=== PATIENT | female | born 1985 | race Hispanic/Latino ===

== ENCOUNTER 2018-01-24 09:03 | Emergency (ER) | payer OTHER, SELFPAY ==
[2018-01-24 09:41] LABS: Absolute Monocytes 0.4 K/uL (0.1-1.3); Absolute Neutrophil 3.7 K/uL (1.8-8.0); Basophils % 0.8 % (0-1.3); Eosinophils % 1.6 % (0-4.4); Hematocrit 43.6 % (36.0-45.0); Lymphocytes % 32.4 % (15.3-44.8); MCH 35.1 pg (27.0-35.0); MCV 100.4 fL (80-100); RBC Red Blood Cell Count 4.34 M/uL (3.86-4.86)
--- NOTE | 2018-01-24 09:45 | RAD REPORT ---
EXAM DESCRIPTION: RAD - Chest Single View - 01/24/2018 9:40 am CLINICAL HISTORY: left arm numbness;Chest pain Chest pain. COMPARISON: CHEST PA AND LAT 2 VIEW dated 11/19/1995 FINDINGS: Portable technique limits examination quality. The lungs are grossly clear. The heart is normal in size. No displaced fractures. IMPRESSION: No acute intrathoracic process suspected.
--- NOTE | 2018-01-24 09:50 | RAD REPORT ---
EXAM DESCRIPTION: CT - Head Brain Wo Cont - 01/24/2018 9:44 am CLINICAL HISTORY: left arm numbness Drowsiness COMPARISON: No comparisons TECHNIQUE: All CT scans are performed using dose optimization technique as appropriate and may inclu de automated exposure control or mA/KV adjustment according to patient size. FINDINGS: No intracranial hemorrhage, hydrocephalus or extra-axial fluid collection.No areas of brai n edema or evidence of midline shift. The paranasal sinuses and mastoids are clear. The calvarium is intact. IMPRESSION: No acute intracranial abnormality.
[2018-01-24 09:52] LABS: Protime INR 1.02
[2018-01-24 10:10] LABS: ALT/SGPT 84 U/L (12-78); AST/SGOT 72 U/L (15-37); Albumin 4.1 g/dL (3.4-5.0); Alkaline Phosphatase 122 U/L (45-117); BUN Blood Urea Nitrogen 11 mg/dL (7-18); Bicarbonate 24 mmol/L (21-32); Bilirubin Direct 0.2 mg/dL (0-0.2); Bilirubin Total 0.5 mg/dL (0.2-1.0); Glucose Level 84 mg/dL (74-106); Magnesium 2.2 mg/dL (1.8-2.4); NT PRO-BNP 27 pg/mL (<125); Potassium 3.6 mmol/L (3.5-5.1); Protein, Total 8.3 g/dL (6.4-8.2); Sodium Level 139 mmol/L (136-145)
[2018-01-24 11:07] LABS: Urine Blood 3+ (NEG); Urine Glucose NEGATIVE (NEG); Urine Protein 1+ (NEG)
[2018-01-24 11:24] LABS: Barbiturates NEGATIVE (NEGATIVE); Benzodiazepines NEGATIVE (NEGATIVE); Cocaine NEGATIVE (NEGATIVE); METHAMPHETAM POSITIVE (NEGATIVE); Methadone NEGATIVE (NEGATIVE); Opiates NEGATIVE (NEGATIVE); Phencyclidine NEGATIVE (NEGATIVE); THC Cannibis POSITIVE (NEGATIVE)
--- NOTE | 2018-01-24 11:48 | EDPHYS ---
Physician Documentation [facility] Name: Sylvia Cruz Age: 32 yrs Sex: Female : 1985 Arrival Date: 01/24/2018 Time: 09:07 Bed 6 Private MD: None, None ED Physician Jarad Fermin HPI: 01/24 09:36 This 32 yrs old Female presents to ER via Ambulatory with complaints of Chest kdr Pain, Numbness Of Arm. 09:36 The patient or guardian reports chest pain that is located primarily in the anterior kdr chest wall, left. The pain radiates to the left arm. Associated signs and symptoms: Pertinent positives: diaphoresis, lightheadedness. The chest pain is described as aching, dull, a heaviness, a pressure, squeezing. Duration: The patient or guardian reports multiple episodes, that are intermittent, that wax and wane, with no pattern. Modifying factors: The symptoms are alleviated by nothing. the symptoms are aggravated by activity, emotionally stressful situations, movement. Severity of pain: At its worst the pain was moderate in the emergency department the pain is unchanged. The patient has experienced similar episodes in the past, several times, She has had the CP previously, last was 4 - 6 months ago. The left hand was cramping but not numb as it is today. The numbness since onset has been her entire left arm. 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 - Social history:: Smoking status: Patient uses tobacco products, denies chronic smoking, but will smoke occasionally. - Ebola Screening: : Patient denies exposure to infectious person Patient denies travel to an Ebola-affected area in the 21 days before illness onset. ROS: 09:36 Constitutional: Negative for fever, chills, and weight loss, Eyes: Negative for injury, kdr pain, redness, and discharge, ENT: Negative for injury, pain, and discharge, Neck: Negative for injury, pain, and swelling, Respiratory: Negative for shortness of breath, cough, wheezing, and pleuritic chest pain, Abdomen/GI: Negative for abdominal pain, nausea, vomiting, diarrhea, and constipation, Back: Negative for injury and pain, : Negative for injury, bleeding, discharge, and swelling, MS/Extremity: Negative for injury and deformity, Skin: Negative for injury, rash, and discoloration, Psych: Negative for depression, anxiety, suicide ideation, homicidal ideation, and hallucinations, Allergy/Immunology: Negative for hives, rash, and allergies, Endocrine: Negative for neck swelling, polydipsia, polyuria, polyphagia, and marked weight changes, Hematologic/Lymphatic: Negative for swollen nodes, abnormal bleeding, and unusual bruising. 09:36 Cardiovascular: Positive for chest pain, Negative for edema, orthopnea, palpitations, paroxysmal nocturnal dyspnea, acute changes. 09:36 Neuro: Positive for numbness, weakness, Negative for altered mental status, dizziness, headache, hearing loss, loss of consciousness, seizure activity, speech changes, syncope, near syncope, tingling, tinnitus, tremor, visual changes. Exam: 09:36 Constitutional: This is a well developed, well nourished patient who is awake, alert, kdr and in no acute distress. Head/Face: Normocephalic, atraumatic. Eyes: Pupils equal round and reactive to light, extra-ocular motions intact. Lids and lashes normal. Conjunctiva and sclera are non-icteric and not injected. Cornea within normal limits. Periorbital areas with no swelling, redness, or edema. Neck: Trachea midline, no thyromegaly or masses palpated, and no cervical lymphadenopathy. Supple, full range of motion without nuchal rigidity, or vertebral point tenderness. No Meningismus. Chest/axilla: Normal chest wall appearance and motion. Nontender with no deformity. No lesions are appreciated. Cardiovascular: Regular rate and rhythm with a normal S1 and S2. No gallops, murmurs, or rubs. Normal PMI, no JVD. No pulse deficits. Respiratory: Lungs have equal breath sounds bilaterally, clear to auscultation and percussion. No rales, rhonchi or wheezes noted. No increased work of breathing, no retractions or nasal flaring. Abdomen/GI: Soft, non-tender, with normal bowel sounds. No distension or tympany. No guarding or rebound. No evidence of tenderness throughout. Back: No spinal tenderness. No costovertebral tenderness. Full range of motion. Skin: Warm, dry with normal turgor. Normal color with no rashes, no lesions, and no evidence of cellulitis. MS/ Extremity: Pulses equal, no cyanosis. Neurovascular intact. Full, normal range of motion. Neuro: Awake and alert, GCS 15, oriented to person, place, time, and situation. Cranial nerves II-XII grossly intact. Motor strength 5/5 in all extremities. Economic Development Director strenght is less in the left hand but she is right hand dominant. Sensory grossly intact but subjectively diminished on the left hand. Sharp/dull between both hands was grossly Cerebellar exam normal. Normal gait. Psych: Awake, alert, with orientation to person, place and time. Behavior, mood, and affect are within normal limits. Vital Signs: 09:15 Pulse 89; Resp 16; Pulse Ox 98% on R/A; Weight 58.97 kg; Height 5 ft. 1 in. (154.94 ss cm); Pain 6/10; 09:38 BP 119 / 93; Temp 98.4(O); ae1 09:50 BP 139 / 89; Pulse 72; Resp 20; Pulse Ox 98% on R/A; ae1 10:30 BP 119 / 91; Pulse 72; Resp 18; Pulse Ox 98% on R/A; ae1 09:15 Body Mass Index 24.56 (58.97 kg, 154.94 cm) ss NIH Stroke Scale Scores: 09:33 NIHSS Score: 0 kdr MDM: 11:48 Patient medically screened. kdr 11:50 Data reviewed: vital signs, nurses notes. Special discussion: Based on the patient's kdr history, exam, and Dx evaluation, there is no indication for emergent intervention or inpatient Tx. It is understood by the patient/guardian that if the Sx's persist or worsen they need to return immediately for re-evaluation. I discussed with the patient/guardian in detail that at this point there is no indication for admission to the hospital. It is understood, however, that if the symptoms persist or worsen the patient needs to return immediately for re-evaluation. ED course: The patient improved with the interventions given and was happy with the care provided and the plan for discharge and follow-up. 01/24 09:30 Order name: Basic Metabolic Panel; Complete Time: 10:53 kdr 01/24 09:30 Order name: CBC with Diff; Complete Time: 10:53 kdr 01/24 09:30 Order name: LFT's; Complete Time: 10:53 kdr 01/24 09:30 Order name: Magnesium; Complete Time: 10:53 [facility] 01/24 09:30 Order name: NT PRO-BNP; Complete Time: 10:53 [facility] 01/24 09:30 Order name: PT-INR; Complete Time: 10:53 [facility] 01/24 09:30 Order name: Ptt, Activated; Complete Time: 10:53 [facility] 01/24 09:30 Order name: Troponin (emerg Dept Use Only); Complete Time: 10:53 kdr 01/24 09:30 Order name: XRAY Chest (1 view); Complete Time: 10:53 [facility] 01/24 09:30 Order name: EKG; Complete Time: 09:31 kdr 01/24 09:30 Order name: CT Head Brain wo Cont; Complete Time: 10:53 [facility] 01/24 09:31 Order name: UDS; Complete Time: 11:42 [facility] 01/24 10:47 Order name: Urine Dipstick--Ancillary (enter results); Complete Time: 11:42 eb 01/24 10:47 Order name: Urine --Ancillary (enter results); Complete Time: 11:42 eb 01/24 09:30 Order name: Cardiac monitoring; Complete Time: 09:31 kdr 01/24 09:30 Order name: EKG - Nurse/Tech; Complete Time: 09:38 kdr 01/24 09:30 Order name: IV Saline Lock; Complete Time: 09:31 kdr 01/24 09:30 Order name: Labs collected and sent; Complete Time: 09:31 kdr 01/24 09:30 Order name: O2 Per Protocol; Complete Time: 09:31 kdr 01/24 09:30 Order name: O2 Sat Monitoring; Complete Time: 09:31 kdr 01/24 09:30 Order name: Urine Dipstick-Ancillary (obtain specimen); Complete Time: 10:36 kdr 01/24 09:31 Order name: Urine Test (obtain specimen); Complete Time: 10:36 kdr Administered Medications: No medications were administered Disposition: 01/24/18 11:48 Discharged to Home. Impression: Chest pain on breathing, Idiopathic peripheral autonomic neuropathy. - Condition is Stable. - Discharge Instructions: Peripheral Neuropathy, Nonspecific Chest Pain, [id number]. - Medication Reconciliation Form, Thank You Letter form. - Follow up: Private Physician; When: 2 - 3 days; Reason: If symptoms return, Further diagnostic work-up, Recheck today's complaints, Continuance of care, Re-evaluation by your physician. - Problem is new. - Symptoms have improved. NIH Stroke Scale - NIH Stroke Score Date: 01/24/2018 Time: 09:33 Total Score = 0 1a. Level of Consciousness (LOC) - 0(Alert) 1b. Level of Consciousness (LOC) (Year \\T\\ Age) - 0(Both) 1c. LOC Commands (Open \\T\\ Closes Eyes/Economic Development Director) - 0(Both) 2. Best Gaze (Lateral Gaze Paresis) - 0(Normal) 3. Visual Field Loss - 0(No visual loss) 4. Facial Palsy - 0(Normal) 5a. Left Arm: Motor (10-second hold) - 0(No drift) 5b. Right Arm: Motor (10-second hold) - 0(No drift) 6a. Left Leg: Motor (5-second hold - always test supine) - 0(No drift) 6b. Right Leg: Motor (5-second hold - always test supine) - 0(No drift) 7. Limb Ataxia (finger/nose \\T\\ heel/apple - test with eyes open) - 0(Absent) 8. Sensory Loss (pinprick arms/legs/face) - 0(Normal) 9. Best Language: Aphasia (description/naming/reading) - 0(No aphasia) 10. Dysarthria (speech clarity - read or repeat words) - 0(Normal) 11. Extinction and Inattention (visual/tactile/auditory/spatial/personal) - 0(No abnormality) Initials: [facility] Signatures: Dispatcher [employer] EDMS Jarad eFrmin MD MD [facility] Gunjan Mata RN RN Hernán Mcclelland RN RN ae1 Corrections: (The following items were deleted from the chart) 11:59 11:48 01/24/2018 11:48 Discharged to Home. Impression: Chest pain on breathing; ae1 Idiopathic peripheral autonomic neuropathy. Condition is Stable. Forms are Medication Reconciliation Form, Thank You Letter, Antibiotic Education, Prescription Opioid Use. Follow up: Private Physician; When: 2 - 3 days; Reason: If symptoms return, Further diagnostic work-up, Recheck today's complaints, Continuance of care, Re-evaluation by your physician. Problem is new. Symptoms have improved. kdr
--- NOTE | 2018-01-24 11:48 | ER ---
Nurse's Notes [facility] Name: Sylvia Cruz Age: 32 yrs Sex: Female : 1985 Arrival Date: 01/24/2018 Time: 09:07 Bed 6 Private MD: None, None Diagnosis: Chest pain on breathing;Idiopathic peripheral autonomic neuropathy Presentation: 01/24 09:13 Presenting complaint: Patient states: decreased sensation in L arm and intermittent ss chest pain when patient got off work around 11pm last night. Transition of care: patient was not received from another setting of care. Onset of symptoms was January 23, 2018 at 23:00. Risk Assessment: Do you want to hurt yourself or someone else? Patient reports no desire to harm self or others. Initial Sepsis Screen: Does the patient meet any 2 criteria? No. Patient's initial sepsis screen is negative. Does the patient have a suspected source of infection? No. Patient's initial sepsis screen is negative. Care prior to arrival: None. 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 - Social history:: Smoking status: Patient uses tobacco products, denies chronic smoking, but will smoke occasionally. - Ebola Screening: : Patient denies exposure to infectious person Patient denies travel to an Ebola-affected area in the 21 days before illness onset. Screenin:17 Abuse screen: Denies threats or abuse. Denies injuries from another. Nutritional ss screening: No deficits noted. Tuberculosis screening: Never had TB. 09:49 Fall Risk None identified. ae1 Assessment: 09:07 General: Appears in no apparent distress. uncomfortable, slender, Behavior is ae1 cooperative, anxious. Pain: Complains of pain in xyphoid area and mid-sternal area Pain radiates to left arm Pain began gradually, 1 day ago. Neuro: Level of Consciousness is awake, alert, obeys commands, Oriented to person, place, time, situation. Cardiovascular: Heart tones S1 S2 present Patient's skin is warm and dry. Rhythm is regular. Respiratory: Airway is patent Trachea midline Respiratory effort is even, unlabored, Respiratory pattern is regular, symmetrical. GI: No signs and/or symptoms were reported involving the gastrointestinal system. : No signs and/or symptoms were reported regarding the genitourinary system. EENT: No signs and/or symptoms were reported regarding the EENT system. Derm: Skin is normal. Musculoskeletal: No signs and/or symptoms reported regarding the musculoskeletal system. 09:30 Reassessment: Radiology at bedside obtaining chest x-ray. ae1 09:47 Reassessment: Patient returned from CT, encouraged to provide urine sample, patient ae1 states she is unable to urinate at this time. 10:31 Reassessment: Patient states her is still numb. Patient up to restroom to urinate. ae1 Vital Signs: 09:15 Pulse 89; Resp 16; Pulse Ox 98% on R/A; Weight 58.97 kg; Height 5 ft. 1 in. (154.94 ss cm); Pain 6/10; 09:38 BP 119 / 93; Temp 98.4(O); ae1 09:50 BP 139 / 89; Pulse 72; Resp 20; Pulse Ox 98% on R/A; ae1 10:30 BP 119 / 91; Pulse 72; Resp 18; Pulse Ox 98% on R/A; ae1 09:15 Body Mass Index 24.56 (58.97 kg, 154.94 cm) ss NIH Stroke Scale Scores: 09:33 NIHSS Score: 0 kdr ED Course: 09:07 Patient arrived in ED. mr 09:07 None, None is Private Physician. mr 09:15 Triage completed. ss 09:15 Arm band placed on right wrist. ss 09:16 monitoring specialist on. Pulse ox on. NIBP on. Notified ED physician of other of patient's ss arrival and s/s. Dr. Fermin reports no need to call code stroke at this time. 09:16 Patient has correct armband on for positive identification. Placed in gown. Bed in low ss position. Call light in reach. Side rails up X 1. Adult w/ patient. 09:16 Patient maintains SpO2 saturation greater than 95% on room air. ss 09:20 Inserted saline lock: 20 gauge in right antecubital area, using aseptic technique. ae1 Blood collected. 09:22 Jarad Fermin MD is Attending Physician. kdr 09:25 Hernán Mcclelland, SARAHI is Primary Nurse. ae1 09:37 X-ray completed. Portable x-ray completed in exam room. Patient tolerated procedure jb2 well. 09:38 XRAY Chest (1 view) In Process Unspecified. EDMS 09:44 CT Head Brain wo Cont In Process Unspecified. EDMS 10:45 Urine collected: clean catch specimen, cloudy, donald colored. jb1 11:58 No provider procedures requiring assistance completed. IV discontinued, intact, ae1 bleeding controlled, No redness/swelling at site. Pressure dressing applied. Administered Medications: No medications were administered Outcome: 11:48 Discharge ordered by . kdr 11:58 Discharged to home ambulatory. ae1 11:58 Condition: stable 11:58 Discharge instructions given to patient, Instructed on discharge instructions, follow up and referral plans. Demonstrated understanding of instructions. 11:59 Patient left the ED. ae1 NIH Stroke Scale - NIH Stroke Score Date: 01/24/2018 Time: 09:33 Total Score = 0 1a. Level of Consciousness (LOC) - 0(Alert) 1b. Level of Consciousness (LOC) (Year \\T\\ Age) - 0(Both) 1c. LOC Commands (Open \\T\\ Closes Eyes/Metal Fabricator Helper) - 0(Both) 2. Best Gaze (Lateral Gaze Paresis) - 0(Normal) 3. Visual Field Loss - 0(No visual loss) 4. Facial Palsy - 0(Normal) 5a. Left Arm: Motor (10-second hold) - 0(No drift) 5b. Right Arm: Motor (10-second hold) - 0(No drift) 6a. Left Leg: Motor (5-second hold - always test supine) - 0(No drift) 6b. Right Leg: Motor (5-second hold - always test supine) - 0(No drift) 7. Limb Ataxia (finger/nose \\T\\ heel/apple - test with eyes open) - 0(Absent) 8. Sensory Loss (pinprick arms/legs/face) - 0(Normal) 9. Best Language: Aphasia (description/naming/reading) - 0(No aphasia) 10. Dysarthria (speech clarity - read or repeat words) - 0(Normal) 11. Extinction and Inattention (visual/tactile/auditory/spatial/personal) - 0(No abnormality) Initials: kdr Signatures: Dispatcher [employer] Foster Carlson jb1 Jarad Fermin MD MD kdr Rivera, Maria mr Buechter, Jesse jb2 Gunjan Mata, RN RN ss Hernán Mcclelland RN RN ae1
--- NOTE | 2018-01-24 12:10 | EKG ---
Test Date: 2018-01-24 Test Time: 09:30:27 Software Asset Manager: ELKE MEASUREMENT RESULTS: Intervals: Rate: 78 TX: 114 QRSD: 74 QT: 412 QTc: 469 [place]: P: -5 TX: 114 QRS: 28 T: 27 INTERPRETIVE STATEMENTS: Normal sinus rhythm Normal ECG Compared to ECG 09/27/2007 12:15:57 Sinus arrhythmia no longer present Electronically Signed On 01-24-18 12:10:05 CDT by Rito Thompson
== END 2018-01-24 11:59 | disposition home or self-care (01) ==
LOC: ER 09:03
DX: R07.9 Chest pain, unspecified (principal); G90.09 Other idiopathic peripheral autonomic neuropathy; F17.200 Nicotine dependence, unspecified, uncomplicated
CPT/HCPCS: 36415; 70450; 71045; 80048; 80076; 80307; 81003; 81025; 83735; 83880; 84484; 85025; 85610; 85730; 93005; 99285

== ENCOUNTER 2018-10-23 23:46 | Emergency (ER) | payer SELFPAY ==
--- OUTSIDE RECORDS SUMMARY | 2018-10-23 23:47 | XMS REPORT ---
:1985 [facility] Address [address] [place] [address] Dr. Villanueva [address] [place] [id number] Care Team Providers Name Role Phone Unavailable Unavailable Unavailable Problems This patient has no known problems. Allergies, Adverse Reactions, Alerts This patient has no known allergies or adverse reactions. Medications This patient has no known medications.
[2018-10-24 01:14] LABS: Urine Blood 2+ (NEG); Urine Glucose NEGATIVE (NEG); Urine Protein NEGATIVE (NEG); Urine Specific Gravity <1.005 (1.005-1.030)
[2018-10-24] MEDS ORDERED: LORazepam 2 MG/ML VIAL ONE (01:38)
[2018-10-24] MEDS ORDERED: TETANUS & DIPHTHERIA TOX,ADULT 0.5 ML VIAL ONE (01:39)
[2018-10-24 01:45] LABS: Absolute Lymphocytes (CBC) 2.7 K/uL (0.7-4.9); Absolute Monocytes 0.4 K/uL (0.1-1.3); Absolute Neutrophil 2.3 K/uL (1.8-8.0); Basophils % 1.1 % (0-1.3); Eosinophils % 2.8 % (0-4.4); Hematocrit 44.1 % (36.0-45.0); Lymphocytes % 47.8 % (15.3-44.8); MPV 7.4 fL (7.6-11.3); Monocytes % 7.4 % (3.3-12.3); RBC Red Blood Cell Count 4.36 M/uL (3.86-4.86)
[2018-10-24 02:18] LABS: Protime INR 0.89
[2018-10-24 02:30] LABS: ALT/SGPT 53 U/L (12-78); AST/SGOT 48 U/L (15-37); Albumin 4.1 g/dL (3.4-5.0); Alkaline Phosphatase 110 U/L (45-117); BUN Blood Urea Nitrogen 6 mg/dL (7-18); Bicarbonate 21 mmol/L (21-32); Bilirubin Direct < 0.1 mg/dL (0-0.2); Bilirubin Total 0.2 mg/dL (0.2-1.0); Glucose Level 104 mg/dL (74-106); Potassium 4.1 mmol/L (3.5-5.1); Protein, Total 8.3 g/dL (6.4-8.2); Sodium Level 148 mmol/L (136-145)
[2018-10-24 05:51] LABS: Barbiturates NEGATIVE (NEGATIVE); Benzodiazepines NEGATIVE (NEGATIVE); Cocaine NEGATIVE (NEGATIVE); METHAMPHETAM NEGATIVE (NEGATIVE); Methadone NEGATIVE (NEGATIVE); Opiates NEGATIVE (NEGATIVE); Phencyclidine NEGATIVE (NEGATIVE); THC Cannibis POSITIVE (NEGATIVE)
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
--- NOTE | 2018-10-24 08:37 | EKG ---
Test Date: 2018-10-23 Test Time: 23:54:12 Disability Advocate: TATYANA MEASUREMENT RESULTS: Intervals: Rate: 107 TX: 132 QRSD: 70 QT: 328 QTc: 437 Sarles: P: 52 TX: 132 QRS: 11 T: 27 INTERPRETIVE STATEMENTS: Sinus tachycardia Otherwise normal ECG Compared to ECG 01/24/2018 09:30:27 Sinus rhythm no longer present Electronically Signed On 10-24-18 08:36:35 CDT by Rito Thompson
== END 2018-10-24 15:54 | disposition home or self-care (01) ==
LOC: ER 23:46
DX: R41.82 Altered mental status, unspecified (principal); F10.129 Alcohol abuse with intoxication, unspecified; S61.512A Laceration without foreign body of left wrist, initial encounter; X78.1XXA Intentional self-harm by knife, initial encounter; R45.851 Suicidal ideations; F31.9 Bipolar disorder, unspecified; I10 Essential (primary) hypertension; Z72.0 Tobacco use; Z23 Encounter for immunization
CPT/HCPCS: 36415; 80048; 80076; 80307; 80320; 80329; 81003; 84703; 85025; 85610; 85730; 90471; 90714; 93005; 96372; 99285

== ENCOUNTER 2019-03-30 22:43 | Emergency (ER) | payer SELFPAY ==
[2019-03-30 23:13] LABS: Absolute Lymphocytes (CBC) 3.3 K/uL (0.7-4.9); Basophils % 1.2 % (0-1.3); Hematocrit 42.2 % (36.0-45.0); Lymphocytes % 56.7 % (15.3-44.8); MPV 7.1 fL (7.6-11.3); RBC Red Blood Cell Count 4.15 M/uL (3.86-4.86)
[2019-03-30] MEDS ORDERED: MORPHINE 4 MG/ML SYR ONE (23:19)
[2019-03-30] MEDS ORDERED: ONDANSETRON 4 MG/2 ML VIAL ONE (23:19)
[2019-03-30] MEDS ORDERED: NA CHLORIDE 0.9% 1,000 ML ONE (23:19)
[2019-03-30 23:33] LABS: ALT/SGPT 77 U/L (12-78); AST/SGOT 86 U/L (15-37); Alkaline Phosphatase 116 U/L (45-117); BUN Blood Urea Nitrogen 6 mg/dL (7-18); Bicarbonate 22 mmol/L (21-32); Glucose Level 96 mg/dL (74-106); Potassium 3.7 mmol/L (3.5-5.1); Sodium Level 144 mmol/L (136-145)
[2019-03-30 23:34] LABS: Albumin 4.1 g/dL (3.4-5.0); Bilirubin Direct < 0.1 mg/dL (0-0.2); Bilirubin Total 0.5 mg/dL (0.2-1.0); Lipase 125 U/L (73-393); Protein, Total 7.9 g/dL (6.4-8.2)
[2019-03-30 23:52] LABS: Urine Blood 2+ (NEG); Urine Glucose NEGATIVE (NEG); Urine Protein NEGATIVE (NEG); Urine Specific Gravity <1.005 (1.005-1.030)
[2019-03-31] MEDS ORDERED: MORPHINE 2 MG/ML SYR ONE (01:26)
--- NOTE | 2019-03-31 02:04 | ER ---
Nurse's Notes [facility] Name: Sylvia Cruz Age: 34 yrs Sex: Female : 1985 Arrival Date: 03/30/2019 Time: 22:45 Bed 26 Private MD: Diagnosis: Abdominal and pelvic pain Presentation: 03/30 22:55 Presenting complaint: Patient states: i have severe RLQ pain this morning and hematuria mg2 since yesterday. Transition of care: patient was not received from another setting of care. Onset of symptoms was March 30, 2019. Risk Assessment: Do you want to hurt yourself or someone else? Patient reports no desire to harm self or others. Initial Sepsis Screen: Does the patient meet any 2 criteria? No. Patient's initial sepsis screen is negative. Does the patient have a suspected source of infection? No. Patient's initial sepsis screen is negative. Care prior to arrival: None. 22:55 Method Of Arrival: Wheelchair mg2 22:55 Acuity: BONITA 2 mg2 Triage Assessment: 03/31 02:20 General: Appears uncomfortable. 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 - Social history:: Smoking status: Patient uses tobacco products, smokes one-half pack cigarettes per day, Patient uses alcohol, occasionally. street drugs, IV drugs. - Ebola Screening: : No symptoms or risks identified at this time. Screenin:58 Abuse screen: Denies threats or abuse. Denies injuries from another. Nutritional mg2 screening: No deficits noted. Tuberculosis screening: No symptoms or risk factors identified. 23:30 Fall Risk None identified. tr5 Assessment: 22:58 Reassessment: patient crying of pain in triage. mg2 23:30 General: Behavior is cooperative, crying. Pain: Complains of pain in right lower tr5 quadrant and abdomen diffusely Pain does not radiate. Pain currently is 10 out of 10 on a pain scale. Quality of pain is described as crampy, Pain began 3 hours ago. Is continuous. Neuro: Level of Consciousness is awake, alert, obeys commands, Oriented to person, place, time, Coat Check Attendant are equal bilaterally Moves all extremities. Cardiovascular: Heart tones present Capillary refill < 3 seconds Pulses are all present. Respiratory: Airway is patent Respiratory effort is even, unlabored, Respiratory pattern is regular, symmetrical. GI: Bowel sounds present X 4 quads. Abd is soft. : No signs and/or symptoms were reported regarding the genitourinary system. EENT: No signs and/or symptoms were reported regarding the EENT system. Derm: No signs and/or symptoms reported regarding the dermatologic system. Musculoskeletal: No signs and/or symptoms reported regarding the musculoskeletal system. 03/31 00:30 Reassessment: Patient and/or family updated on plan of care and expected duration. Pain tr5 level reassessed. Patient is alert, oriented x 3, equal unlabored respirations, skin warm/dry/pink. 02:22 Reassessment: Patient appears in no apparent distress at this time. Patient and/or jd3 family updated on plan of care and expected duration. Pain level reassessed. Patient is alert, oriented x 3, equal unlabored respirations, skin warm/dry/pink. pt reported understanding of discharge instructions, even and steady gait upon discharge. Vital Signs: 03/30 22:56 BP 138 / 104; Pulse 102; Resp 20; Temp 98; Pulse Ox 100% on R/A; Weight 51.26 kg; mg2 Height 5 ft. 2 in. (157.48 cm); Pain 10/10; 03/31 00:00 BP 129 / 101; Pulse 86; Resp 17; Pulse Ox 99% ; tr5 02:20 Pulse 88; Resp 16 S; Pulse Ox 100% on R/A; jd3 03/30 22:56 Body Mass Index 20.67 (51.26 kg, 157.48 cm) mg2 ED Course: 03/30 22:45 Patient arrived in ED. cf2 22:56 Triage completed. mg2 22:58 Cachorro Higgins PA is PHCP. [facility] 22:58 Dinh Joshua MD is Attending Physician. m 22:58 Arm band placed on. mg2 23:02 Eric Thompson, SARAHI is Primary Nurse. tr5 23:09 Inserted saline lock: 20 gauge in right antecubital area, using aseptic technique. mg2 Blood collected. 23:[address] tr5 23:30 Bed in low position. Call light in reach. Side rails up X 1. tr5 23:46 Initial lab(s) drawn, by me, sent to lab. Patient maintains SpO2 saturation greater jp3 than 95% on room air. 23:46 Test, Serum Sent. jp3 23:48 Radiology exam delayed due to test not completed at this time. kw1 03/31 01:06 CT Abd/Pelvis - IV Contrast Only In Process Unspecified. EDMS 02:20 No provider procedures requiring assistance completed. IV discontinued, intact, jd3 bleeding controlled, No redness/swelling at site. Pressure dressing applied. Administered Medications: 03/30 23:30 Drug: morphine 4 mg Route: IVP; Site: right antecubital; tr5 03/31 00:01 Follow up: Response: Marked relief of symptoms tr5 03/30 23:30 Drug: Zofran 4 mg Route: IVP; Site: right antecubital; tr5 03/31 00:01 Follow up: Response: Marked relief of symptoms tr5 03/30 23:59 Drug: NS 0.9% 1000 ml Route: IV; Rate: 1 bolus; Site: right antecubital; tr5 03/31 02:22 Follow up: Response: No adverse reaction; IV Status: Completed infusion; IV Intake: jd3 1000ml 01:15 Drug: morphine 2 mg Route: IVP; Site: right antecubital; tr5 01:58 Follow up: Response: Pain is decreased tr5 Intake: 02:22 IV: 1000ml; Total: 1000ml. jd3 Outcome: 02:03 Discharge ordered by . oj 02:20 Discharged to home ambulatory, with family. jd3 02:20 Condition: stable 02:20 Discharge instructions given to patient, family, Instructed on discharge instructions, follow up and referral plans. medication usage, Demonstrated understanding of instructions, follow-up care, medications, Prescriptions given X 1. 02:23 Patient left the ED. jd3 Signatures: Dispatcher [employer] EDMS Cachorro Higgins PA PA jmm Davies, Jonathon RN RN jAlea Walker kw1 Matt Castillo RN RN mg2 Mat Renteria jp3 Eric Thompson RN RN tr5 Bekah Ta cf2 Corrections: (The following items were deleted from the chart) 03/30 22:56 22:55 Acuity: BONITA 3 mg2 mg2
--- NOTE | 2019-03-31 02:04 | EDPHYS ---
Physician Documentation [facility] Name: Sylvia Cruz Age: 34 yrs Sex: Female : 1985 Arrival Date: 03/30/2019 Time: 22:45 Bed 26 Private MD: ED Physician Dinh Joshua HPI: 03/30 22:59 This 34 yrs old Female presents to ER via Wheelchair with complaints of jmm Abdominal Pain. 22:59 The patient presents with abdominal pain right lower quadrant. Onset: The jmm symptoms/episode began/occurred gradually, 2 day(s) ago. The symptoms do not radiate. Associated signs and symptoms: Pertinent positives: hematuria, Pertinent negatives: nausea and vomiting, diarrhea, fever. This is a 34 year old female with a history of bipolar disorder that presents to the ED with complaints of lower abdominal pain, hematuria beginning 2 days ago. Patient denies vomiting or diarrhea. Denies abnormal vaginal discharge. . 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 - Social history:: Smoking status: Patient uses tobacco products, smokes one-half pack cigarettes per day, Patient uses alcohol, occasionally. street drugs, IV drugs. - Ebola Screening: : No symptoms or risks identified at this time. ROS: 22:59 Constitutional: Negative for fever, chills, and weight loss, Cardiovascular: Negative jmm for chest pain, palpitations, and edema, Respiratory: Negative for shortness of breath, cough, wheezing, and pleuritic chest pain. 22:59 Abdomen/GI: Positive for abdominal pain. 22:59 : Positive for urinary symptoms. 22:59 All other systems are negative. Exam: 22:59 Head/Face: atraumatic. Eyes: EOMI, no conjunctival erythema appreciated ENT: Moist jmm Mucus Membranes Neck: Trachea midline, Supple Chest/axilla: Normal chest wall appearance and motion. Cardiovascular: Regular rate and rhythm. No edema appreciated Respiratory: Normal respirations, no respiratory distress appreciated 22:59 Back: Normal ROM Skin: General appearance color normal MS/ Extremity: Moves all extremities, no obvious deformities appreciated, no edema noted to the lower extremities Neuro: Awake and alert, normal gait Psych: Behavior is normal, Mood is normal, Patient is cooperative and pleasant 22:59 Constitutional: The patient appears alert, awake, uncomfortable. 22:59 Abdomen/GI: Inspection: abdomen appears normal, Bowel sounds: normal, Palpation: soft, mild abdominal tenderness, in the suprapubic area and right lower quadrant. 22:59 Back: ROM is normal. 22:59 : Pelvic Exam: Speculum exam: normal findings, bimanual exam reveals normal findings, a female rib cutter was present for the exam. Vital Signs: 22:56 BP 138 / 104; Pulse 102; Resp 20; Temp 98; Pulse Ox 100% on R/A; Weight 51.26 kg; mg2 Height 5 ft. 2 in. (157.48 cm); Pain 10/10; 03/31 00:00 BP 129 / 101; Pulse 86; Resp 17; Pulse Ox 99% ; tr5 02:20 Pulse 88; Resp 16 S; Pulse Ox 100% on R/A; jd3 03/30 22:56 Body Mass Index 20.67 (51.26 kg, 157.48 cm) mg2 MDM: 03/30 23:27 Patient medically screened. [facility] 03/31 02:02 Data reviewed: vital signs, nurses notes. Counseling: I had a detailed discussion with [facility] the patient and/or guardian regarding: the historical points, exam findings, and any diagnostic results supporting the discharge/admit diagnosis, lab results, radiology results, the need for outpatient follow up, to return to the emergency department if symptoms worsen or persist or if there are any questions or concerns that arise at home. ED course: Decreased pain in the ED. Patient is advised to follow up with commercial director for reevaluation. Patient otherwise given strict return precautions. Patient understood and agrees with the plan of care. . 03/30 22:59 Order name: Basic Metabolic Panel; Complete Time: 23:37 [facility] 03/30 22:59 Order name: CBC with Diff; Complete Time: 23:27 [facility] 03/30 22:59 Order name: Creatinine for Radiology; Complete Time: 23:37 [facility] 03/30 22:59 Order name: Hepatic Function; Complete Time: 23:37 [facility] 03/30 22:59 Order name: Lipase; Complete Time: 23:37 [facility] 03/30 23:33 Order name: Test, Serum; Complete Time: 00:31 [facility] 03/30 23:33 Order name: CT Abd/Pelvis - IV Contrast Only [facility] 03/30 23:43 Order name: Urine Dipstick--Ancillary (enter results); Complete Time: 00:31 2 03/31 01:29 Order name: GC (GONORR/CHLAMYDIA) Probe [facility] 03/31 01:30 Order name: Wet Prep [facility] 03/30 22:59 Order name: IV Saline Lock; Complete Time: 23:55 [facility] 03/30 22:59 Order name: Labs collected and sent; Complete Time: 23:55 [facility] 03/31 01:29 Order name: Pelvic Exam Setup; Complete Time: 02:12 [facility] Administered Medications: 03/30 23:30 Drug: morphine 4 mg Route: IVP; Site: right antecubital; [facility] 03/31 00:01 Follow up: Response: Marked relief of symptoms [facility] 03/30 23:30 Drug: Zofran 4 mg Route: IVP; Site: right antecubital; [facility] 03/31 00:01 Follow up: Response: Marked relief of symptoms [facility] 03/30 23:59 Drug: NS 0.9% 1000 ml Route: IV; Rate: 1 bolus; Site: right antecubital; 5 03/31 02:22 Follow up: Response: No adverse reaction; IV Status: Completed infusion; IV Intake: jd3 1000ml 01:15 Drug: morphine 2 mg Route: IVP; Site: right antecubital; tr5 01:58 Follow up: Response: Pain is decreased tr5 Disposition: 06:33 Co-signature as Attending Physician, Dinh Joshua MD Available for consultation at ps1 all times . Disposition: 03/31/19 02:03 Discharged to Home. Impression: Abdominal and pelvic pain. - Condition is Stable. - Discharge Instructions: Abdominal Pain, Adult, Pelvic Pain, Female. - Prescriptions for Ultracet 37.5- 325 mg Oral Tablet - take 1 tablet by ORAL route every 6 hours - for up to 5 days; do not exceed 8 tablets per day.; 20 tablet. - Medication Reconciliation Form, Thank You Letter, Antibiotic Education, Prescription Opioid Use form. - Follow up: Private Physician; When: 2 - 3 days; Reason: Recheck today's complaints, Continuance of care, Re-evaluation by your physician. Signatures: Dispatcher [employer] EDCachorro San PA PA jmm Davies, Jonathon, RN RN jd3 Dinh Joshua MD MD ps1 Matt Castillo RN RN mg2 Eric Thompson RN RN tr5 Corrections: (The following items were deleted from the chart) 02:23 02:03 03/31/2019 02:03 Discharged to Home. Impression: Abdominal and pelvic pain. jd3 Condition is Stable. Forms are Medication Reconciliation Form, Thank You Letter, Antibiotic Education, Prescription Opioid Use. Follow up: Private Physician; When: 2 - 3 days; Reason: Recheck today's complaints, Continuance of care, Re-evaluation by your physician. jo
[2019-03-31 03:01] VITALS: TEMP 98
[2019-03-31 03:03] VITALS: BP 129/101
[2019-03-31 03:04] VITALS: O2SAT 100
--- NOTE | 2019-04-01 17:16 | RAD REPORT ---
EXAM DESCRIPTION: Abdomen Pelvis W Contrast CLINICAL HISTORY: Right lower abdominal pain TECHNIQUE: Contiguous axial images obtained through the abdomen and pelvis following the uneventful administration of IV contrast. Coronal and sagittal reformatted images were provided. This exam was performed according to our departmental dose-optimization program, which includes autom ated exposure control, adjustment of the mA and/or kV according to patient size and/or use of iterati ve reconstruction technique. COMPARISON: 12/04/2012 FINDINGS: Lung bases: Clear Liver: The liver is diffusely low in density compatible with steatosis. Low-attenuation on either irvin e of the falciform ligament which can be seen in the setting of altered perfusion. Gallbladder and biliary system: Unremarkable Pancreas: Unremarkable Spleen: Unremarkable Adrenals: Unremarkable Kidneys: Normal renal cortical enhancement. Subcentimeter renal cortical hypodensities bilaterally wh ich are too small to characterize. No calculi. No hydronephrosis. Bowel: No obstruction. No appreciable mucosal thickening. Appendix: Normal caliber appendix. No findings to suggest acute appendicitis. Urinary bladder: Unremarkable Reproductive: 2 x 1.3 x 1.8 cm left adnexal cyst. The uterus and right ovary are unremarkable as visu alized. Lymph nodes: No pathologically enlarged lymph nodes. Peritoneum: No focal fluid collection. No free air. Vessels: No abdominal aortic aneurysm. Abdominal wall: Unremarkable Bones: Unremarkable IMPRESSION: 1. Normal appendix. No findings to suggest acute appendicitis. 2. No renal, ureteral or bladder calculi. No evidence for renal obstruction. 3. 2.0 cm benign appearing LEFT ovarian cyst. No follow-up imaging is recommended. Reference: J Am Tierra Radiol 2013;10:[id number] 4. Other findings as above. Electronically signed by: Brody Trevino MD 03/31/2019 1:19 AM CDT Due to temporary technical issues with the PACS/Fluency reporting system, reports are being signed by the in house radiologist as a courtesy to ensure prompt reporting. The interpreting radiologist is f ully responsible for the content of the report.
[2019-04-02 22:16] LABS: C.trachomatis RNA,TMA Not Detected (Not Detected)
== END 2019-03-31 02:23 | disposition home or self-care (01) ==
LOC: ER 22:43
DX: R10.2 Pelvic and perineal pain (principal); I10 Essential (primary) hypertension; F32.9 Major depressive disorder, single episode, unspecified; F17.210 Nicotine dependence, cigarettes, uncomplicated
CPT/HCPCS: 36415; 74177; 80048; 80076; 81003; 83690; 84703; 85025; 87210; 87490; 87590; 96361; 96374; 96375; 99285; J2270; J2405; J7030; Q9967

== ENCOUNTER 2019-06-13 00:46 | Emergency (ER) | payer SELFPAY ==
--- OUTSIDE RECORDS SUMMARY | 2019-06-13 00:48 | XMS REPORT ---
:1985 [facility] Address [address] [place] [address] Dr. Villanueva [address] [place] [id number] Care Team Providers Name Role Phone Unavailable Unavailable Unavailable Problems This patient has no known problems. Allergies, Adverse Reactions, Alerts This patient has no known allergies or adverse reactions. Medications This patient has no known medications.
[2019-06-13 01:34] LABS: Protime INR 0.87
[2019-06-13 02:11] LABS: Absolute Lymphocytes (CBC) 2.7 K/uL (0.7-4.9); Basophils % 0.9 % (0-1.3); Lymphocytes % 58.1 % (15.3-44.8); MPV 7.7 fL (7.6-11.3); RBC Red Blood Cell Count 3.57 M/uL (3.86-4.86)
[2019-06-13 02:19] LABS: ALT/SGPT 73 U/L (12-78); AST/SGOT 51 U/L (15-37); Albumin 3.2 g/dL (3.4-5.0); Alkaline Phosphatase 94 U/L (45-117); BUN Blood Urea Nitrogen 8 mg/dL (7-18); Bicarbonate 18 mmol/L (21-32); Bilirubin Direct < 0.1 mg/dL (0-0.2); Bilirubin Total 0.2 mg/dL (0.2-1.0); Glucose Level 88 mg/dL (74-106); Potassium 3.7 mmol/L (3.5-5.1); Protein, Total 6.8 g/dL (6.4-8.2); Sodium Level 145 mmol/L (136-145)
[2019-06-13 03:10] LABS: Urine Blood 2+ (NEG); Urine Glucose NEGATIVE (NEG); Urine Protein NEGATIVE (NEG); Urine Specific Gravity 1.015 (1.005-1.030)
[2019-06-13 04:03] LABS: Barbiturates NEGATIVE (NEGATIVE); Benzodiazepines POSITIVE (NEGATIVE); Cocaine NEGATIVE (NEGATIVE); METHAMPHETAM NEGATIVE (NEGATIVE); Methadone NEGATIVE (NEGATIVE); Opiates NEGATIVE (NEGATIVE); Phencyclidine NEGATIVE (NEGATIVE); THC Cannibis POSITIVE (NEGATIVE)
--- NOTE | 2019-06-13 04:11 | ER ---
Nurse's Notes [facility] Name: Sylvia Cruz Age: 34 yrs Sex: Female : 1985 Arrival Date: 06/13/2019 Time: 00:51 Bed 5 Private MD: Diagnosis: Alcohol use, unspecified with intoxication delirium;Cannabis abuse with intoxication, unspecified;Poisoning by benzodiazepines, undetermined Presentation: 06/13 00:51 Presenting complaint: EMS states: "we were initially called out by a 3rd democrat worried estevan that the pt had overdosed on Xanax. when we arrived the pt was alert, standing and talking with PD on scene. she reported to taking a 'bar and a half' of Xanax as well as drinking 7 alcoholic drinks and smoking 1 joint. she denies any suicidal thoughts. she reported to us that she was feeling down after having to take her father off of life support today and needed some stress relief. by the time we arrived at the ER the pt was reporting new chest pain was was becoming increasingly drowsy. we started an IV and gave 1 L of fluids.". Transition of care: patient was not received from another setting of care. Onset of symptoms was June 13, 2019. Risk Assessment: Do you want to hurt yourself or someone else? Patient reports no desire to harm self or others. Initial Sepsis Screen: Does the patient meet any 2 criteria? No. Patient's initial sepsis screen is negative. Does the patient have a suspected source of infection? No. Patient's initial sepsis screen is negative. Care prior to arrival: Medication(s) given: Normal saline infusion, 1000 mL, IV initiated. 18 GA, in the right antecubital area, Glucose check: 126 Oxygen administered. via nasal cannula. 00:51 Method Of Arrival: EMS: [facility] jd3 00:51 Acuity: BONITA 2 jd3 [employer]: 04:26 LMP N/A - Irregular menses jd3 Historical: - Allergies: 00:57 No Known Allergies; jd3 - Home Meds: 00:57 BP med [Active]; Zoloft Oral [Active]; jd3 - PMHx: 00:57 Bipolar disorder; Depression; Hypertension; jd3 - PSHx: 00:57 sternum reconstruction; jd3 - Immunization history:: Adult Immunizations unknown. - Social history:: Smoking status: Patient uses tobacco products, denies chronic smoking, but will smoke occasionally, Patient uses street drugs. - Ebola Screening: : Patient negative for fever greater than or equal to 101.5 degrees Fahrenheit, and additional compatible Ebola Virus Disease symptoms. Screenin:00 Abuse screen: Denies threats or abuse. Nutritional screening: No deficits noted. jd3 Tuberculosis screening: No symptoms or risk factors identified. Fall Risk IV access (20 points). Ambulatory Aid- None/Bed Rest/Nurse Assist (0 pts). Gait- Normal/Bed Rest/Wheelchair (0 pts) Mental Status- Oriented to own ability (0 pts). Total Mcallister Fall Scale indicates No Risk (0-24 pts). Assessment: 00:59 General: Appears in no apparent distress. uncomfortable, Behavior is calm, cooperative, jd3 appropriate for age, drowsy, Smells of alcohol. Pain: Complains of pain in chest Quality of pain is described as pressure. Neuro: Level of Consciousness is awake, obeys commands, drowsy. Oriented to person, place, time, situation. Cardiovascular: Heart tones S1 S2 present Capillary refill < 3 seconds Patient's skin is warm and dry. Rhythm is regular. Respiratory: Reports shortness of breath Airway is patent Respiratory effort is even, unlabored, Respiratory pattern is regular, symmetrical, Breath sounds are clear bilaterally. GI: Abdomen is round non-distended, Patient currently denies abdominal pain, nausea, vomiting. : No signs and/or symptoms were reported regarding the genitourinary system. EENT: No signs and/or symptoms were reported regarding the EENT system. Derm: Skin is intact, Skin is dry, Skin is normal, Skin temperature is warm. Musculoskeletal: Circulation, motion, and sensation intact. Range of motion: intact in all extremities. 02:20 Reassessment: Patient appears in no apparent distress at this time. Patient and/or jd3 family updated on plan of care and expected duration. Pain level reassessed. Patient is alert, oriented x 3, equal unlabored respirations, skin warm/dry/pink. pt resting in bed with eyes closed. even and unlabored respirations. 04:26 Reassessment: Patient appears in no apparent distress at this time. Patient and/or jd3 family updated on plan of care and expected duration. Pain level reassessed. Patient is alert, oriented x 3, equal unlabored respirations, skin warm/dry/pink. pt alert, reported understanding of discharge instructions, even and steady gait upon discharge. Vital Signs: 00:58 BP 138 / 105; Pulse 105; Resp 20 S; Temp 98.6(O); Pulse Ox 100% on R/A; Weight 52.62 kg jd3 (R); Height 5 ft. 1 in. (154.94 cm) (R); Pain 4/10; 02:20 BP 95 / 64; Pulse 99; Resp 19 S; Pulse Ox 97% on R/A; jd3 03:52 BP 106 / 72; Pulse 98; Resp 16; Pulse Ox 100% ; ds4 00:58 Body Mass Index 21.92 (52.62 kg, 154.94 cm) jd3 Cadogan Coma Score: 03:04 Eye Response: to pain(2). Verbal Response: inappropriate words(3). Motor Response: tw4 localizes pain(5). Total: 10. ED Course: 00:51 Patient arrived in ED. jd3 00:53 Leonel Galindo MD is Attending Physician. tw4 00:56 Triage completed. jd3 00:58 Arm band placed on. EKG completed in triage. Results shown to MD. jd3 01:00 Patient has correct armband on for positive identification. Placed in gown. Bed in low jd3 position. Call light in reach. Side rails up X2. 01:01 Sesar John, RN is Primary Nurse. jd3 01:01 Maintain EMS IV. Dressing intact. Good blood return noted. Site clean \\T\\ dry. Gauge \\T\\ ivette 3 site: 18 G right AC. 01:10 Initial lab(s) drawn, by me, sent to lab. ds4 02:57 Urine Drug Screen Sent. ds4 04:25 No provider procedures requiring assistance completed. IV discontinued, intact, jd3 bleeding controlled, No redness/swelling at site. Pressure dressing applied. Administered Medications: No medications were administered Outcome: 04:10 Discharge ordered by . tw4 04:25 Discharged to home ambulatory, with family. jd3 04:25 Condition: stable 04:25 Discharge instructions given to patient, family, Instructed on discharge instructions, follow up and referral plans. Demonstrated understanding of instructions, follow-up care. 04:27 Patient left the ED. jd3 Signatures: Terry Elliott4 Sesar John RN RN jd3 Leonel Galindo MD MD tw4 Corrections: (The following items were deleted from the chart) 04:27 04:25 Discharged to home via wheelchair, with family, estevan jd3
--- NOTE | 2019-06-13 04:11 | EDPHYS ---
Physician Documentation [facility] Name: Sylvia Cruz Age: 34 yrs Sex: Female : 1985 Arrival Date: 06/13/2019 Time: 00:51 Bed 5 Private MD: ED Physician Leonel Galindo HPI: 06/13 03:04 This 34 yrs old Female presents to ER via EMS with complaints of SOB. tw4 03:04 The patient presents with lightheadedness, feeling off balance. Onset: The tw4 symptoms/episode began/occurred today. Context: occurred at a friend's home, occurred while the patient was drinking alcohol and taking xanax. just prior to the episode the patient experienced unknown symptoms. Modifying factors: The symptoms are alleviated by closing eyes, holding head still, the symptoms are aggravated by movement of head, standing up, changing position. Associated signs and symptoms: The patient has no apparent associated signs or symptoms. Severity of symptoms: At their worst the symptoms were moderate in the emergency department the symptoms are unchanged. Patient's baseline: Neuro: alert and fully oriented, Motor: no deficits, Ambulation: walks without assistance. The patient has not experienced similar symptoms in the past. 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 - Social history:: Smoking status: Patient uses tobacco products, denies chronic smoking, but will smoke occasionally, Patient uses street drugs. - Ebola Screening: : Patient negative for fever greater than or equal to 101.5 degrees Fahrenheit, and additional compatible Ebola Virus Disease symptoms. ROS: 03:04 Constitutional: Negative for fever, chills, and weight loss, Eyes: Negative for injury, tw4 pain, redness, and discharge, Cardiovascular: Negative for chest pain, palpitations, and edema, Respiratory: Negative for shortness of breath, cough, wheezing, and pleuritic chest pain, Abdomen/GI: Negative for abdominal pain, nausea, vomiting, diarrhea, and constipation, Back: Negative for injury and pain, MS/Extremity: Negative for injury and deformity, Skin: Negative for injury, rash, and discoloration. 03:04 Neuro: Positive for altered mental status, dizziness, Negative for gait disturbance, headache, hearing loss, loss of consciousness, seizure activity, speech changes, syncope, near syncope, tingling, tinnitus. Exam: 03:04 Head/Face: Normocephalic, atraumatic. Eyes: Pupils equal round and reactive to light, tw4 extra-ocular motions intact. Lids and lashes normal. Conjunctiva and sclera are non-icteric and not injected. Cornea within normal limits. Periorbital areas with no swelling, redness, or edema. Chest/axilla: Normal chest wall appearance and motion. Nontender with no deformity. No lesions are appreciated. Cardiovascular: Regular rate and rhythm with a normal S1 and S2. No gallops, murmurs, or rubs. Normal PMI, no JVD. No pulse deficits. Respiratory: Lungs have equal breath sounds bilaterally, clear to auscultation and percussion. No rales, rhonchi or wheezes noted. No increased work of breathing, no retractions or nasal flaring. Abdomen/GI: Soft, non-tender, with normal bowel sounds. No distension or tympany. No guarding or rebound. No evidence of tenderness throughout. Skin: Warm, dry with normal turgor. Normal color with no rashes, no lesions, and no evidence of cellulitis. MS/ Extremity: Pulses equal, no cyanosis. Neurovascular intact. Full, normal range of motion. 03:04 Constitutional: The patient appears lethargic, listless. Vital Signs: 00:58 BP 138 / 105; Pulse 105; Resp 20 S; Temp 98.6(O); Pulse Ox 100% on R/A; Weight 52.62 kg jd3 (R); Height 5 ft. 1 in. (154.94 cm) (R); Pain 4/10; 02:20 BP 95 / 64; Pulse 99; Resp 19 S; Pulse Ox 97% on R/A; jd3 03:52 BP 106 / 72; Pulse 98; Resp 16; Pulse Ox 100% ; ds4 00:58 Body Mass Index 21.92 (52.62 kg, 154.94 cm) jd3 Jessica Coma Score: 03:04 Eye Response: to pain(2). Verbal Response: inappropriate words(3). Motor Response: tw4 localizes pain(5). Total: 10. MDM: 01:42 Patient medically screened. tw4 03:04 Data reviewed: vital signs, nurses notes. tw4 04:06 Differential diagnosis: cardiac arrhythmia, generalized weakness, idiopathic dizziness. tw4 Data reviewed: lab test result(s), drug level(s), acetaminophen, salicylate, UDS positive for THC and benzodiazepines . Counseling: I had a detailed discussion with the patient and/or guardian regarding: the historical points, exam findings, and any diagnostic results supporting the discharge/admit diagnosis, lab results. Special discussion: I discussed with the patient/guardian in detail that at this point there is no indication for admission to the hospital. It is understood, however, that if the symptoms persist or worsen the patient needs to return immediately for re-evaluation. 04:07 ED course: Pt's GCS improved to 15 during her ED stay. tw4 04:08 Data interpreted: Pulse oximetry: Interpretation: normal. Test interpretation: by ED tw4 physician or midlevel provider: ECG. 06/13 00:54 Order name: Acetaminophen; Complete Time: 03:31 06/13 03:35 Interpretation: Within normal limits: ACETA < 2.0. 06/13 00:54 Order name: Basic Metabolic Panel; Complete Time: 03:31 06/13 03:35 Interpretation: Normal except: CL 117; CO2 18. 06/13 00:54 Order name: CBC with Diff; Complete Time: 02:21 06/13 02:21 Interpretation: Normal except: RBC 3.57; MCV 103.5; MCH 36.0; JOHN% 30.5; LYM% 58.1; tw4 NEUT A 1.4. 06/13 00:54 Order name: ETOH Level; Complete Time: 02:21 06/13 02:22 Interpretation: Abnormal: ETOH 233. 06/13 00:54 Order name: Hepatic Function; Complete Time: 03:31 06/13 03:35 Interpretation: Normal except: AST 51; ALB 3.2; GLOB 3.6; A/G 0.9. 06/13 00:54 Order name: PT-INR; Complete Time: 02:21 06/13 02:23 Interpretation: Within normal limits: PT 10.3. 06/13 00:54 Order name: Urine Test (obtain specimen); Complete Time: 02:56 06/13 00:54 Order name: Ptt, Activated; Complete Time: 02:21 06/13 02:23 Interpretation: Normal except: PTT 21.5. 06/13 00:54 Order name: Salicylate; Complete Time: 03:31 06/13 03:35 Interpretation: Within normal limits: DALE < 1.7. 06/13 00:54 Order name: Urine Drug Screen; Complete Time: 04:05 06/13 04:06 Interpretation: Normal except: THC POSITIVE; BZO POSITIVE. 06/13 00:54 Order name: EKG; Complete Time: 00:56 06/13 00:54 Order name: EKG - Nurse/Tech; Complete Time: 01:00 06/13 02:59 Order name: Urine Dipstick--Ancillary (enter results); Complete Time: 03:31 06/13 03:35 Interpretation: Normal except: UBLD 2+. 06/13 02:59 Order name: Urine --Ancillary (enter results); Complete Time: 03:31 06/13 03:35 Interpretation: Within normal limits: URINE PREG NEG. 06/13 00:54 Order name: IV Saline Lock; Complete Time: 01:00 06/13 00:54 Order name: Labs collected and sent; Complete Time: 01:25 06/13 00:54 Order name: Urine Dipstick-Ancillary (obtain specimen); Complete Time: 02:57 EC:08 Rate is 109 beats/min. Rhythm is regular. QRS Palmer is Normal. ME interval is normal. tw4 QRS interval is normal. QT interval is normal. No Q waves. T waves are Normal. No ST changes noted. Clinical impression: Sinus tachycardia. Interpreted by me. Reviewed by me. Administered Medications: No medications were administered Disposition: 06/13/19 04:10 Discharged to Home. Impression: Alcohol use, unspecified with intoxication delirium, Cannabis abuse with intoxication, unspecified, Poisoning by benzodiazepines, undetermined. - Condition is Stable. - Medication Reconciliation Form, Thank You Letter, Antibiotic Education, Prescription Opioid Use form. - Follow up: Private Physician; When: Upon discharge from the Emergency Department; Reason: Recheck today's complaints, Continuance of care. - Problem is new. - Symptoms have improved. Signatures: Dispatcher [employer] Sesar Yancey RN RN jd3 Leonel Galindo MD MD tw4 Corrections: (The following items were deleted from the chart) 04:27 04:10 06/13/2019 04:10 Discharged to Home. Impression: Alcohol use, unspecified with jd3 intoxication delirium; Cannabis abuse with intoxication, unspecified; Poisoning by benzodiazepines, undetermined. Condition is Stable. Forms are Medication Reconciliation Form, Thank You Letter, Antibiotic Education, Prescription Opioid Use. Follow up: Private Physician; When: Upon discharge from the Emergency Department; Reason: Recheck today's complaints, Continuance of care. Problem is new. Symptoms have improved. tw4
[2019-06-13 05:55] VITALS: TEMP 98.6
[2019-06-13 05:58] VITALS: BP 106/72; O2SAT 100
--- NOTE | 2019-06-13 15:33 | EKG ---
Test Date: 2019-06-13 Test Time: 00:55:39 Jewelry Inspector: GUERITA MEASUREMENT RESULTS: Intervals: Rate: 109 WI: 122 QRSD: 60 QT: 338 QTc: 455 [place]: P: 64 WI: 122 QRS: 24 T: 41 INTERPRETIVE STATEMENTS: Sinus tachycardia Otherwise normal ECG Electronically Signed On 06-13-19 15:31:04 CALENDER OPERATOR HELPER by Rito Thompson
== END 2019-06-13 04:27 | disposition home or self-care (01) ==
LOC: ER 00:46
DX: T42.4X1S Poisoning by benzodiazepines, accidental (unintentional), sequela (principal); R41.82 Altered mental status, unspecified; F12.129 Cannabis abuse with intoxication, unspecified; F10.921 Alcohol use, unspecified with intoxication delirium; I10 Essential (primary) hypertension; F31.9 Bipolar disorder, unspecified; Z72.0 Tobacco use; Y92.9 Unspecified place or not applicable
CPT/HCPCS: 36415; 80048; 80076; 80307; 80320; 80329; 81003; 81025; 85025; 85610; 85730; 93005; 99283

== ENCOUNTER 2019-11-06 00:13 | Emergency (ER) | payer SELFPAY ==
--- OUTSIDE RECORDS SUMMARY | 2019-11-06 00:15 | XMS REPORT ---
:1985 Author Organization [facility] t Address [address] [place] [address] Dr. Villanueva [address] [place] [id number] Care Team Providers Name Role Phone Unavailable Unavailable Unavailable Problems This patient has no known problems. Allergies, Adverse Reactions, Alerts This patient has no known allergies or adverse reactions. Medications This patient has no known medications.
--- OUTSIDE RECORDS SUMMARY | 2019-11-06 00:17 | XMS REPORT | Summary of Care ---
:1985 Author Organization [facility] Address [address] [place] [id number] Care Team Providers Name Role Phone Anne Ricks Primary Care Provider Reason for Visit Reason Comments NURSE VISIT Encounter Details Date Type Department Care Team Description 08/27/2019 Nurse Visit [facility]- Karrie Ricks R, [employer] [address] [place] [address] [facility] [place] [facility] Depo[facility] [address] [facility] contraception (Primary [place], [place]) [id number] Allergies No Known Allergiesdocumented as of this encounter (statuses as of 08/27/2019) Medications Medication Sig Dispensed Refills Start Date End Date Status tramadol-acetaminophen Take 1 tablet by 0 Active 37.5-325 mg per tablet mouth every 6 (six) hours as needed for Pain. Hospital, Clinic, or Other Ordered Dose Route Frequency Start Date End Date Status Facility Administered Medication medroxyPROGESTERone 150 mg IM [id number] 10/15/2018 Active (DEPO-PROVERA) injection 150 mgIndications: Encounter for prescription for progestin-only injected contraceptive documented as of this encounter (statuses as of 08/27/2019) Active Problems Problem Noted Date Encounter for prescription for progestin-only injected contraceptive 10/15/2018 Irregular menses 01/31/2018 Well woman exam 10/07/2015 Mollusca contagiosa 10/07/2015 Tobacco use disorder 10/07/2015 Contraceptive management 07/08/2015 documented as of this encounter (statuses as of 08/27/2019) Resolved Problems Problem Noted Date Resolved Date Encounter for surveillance of Nexplanon subdermal 02/05/2018 10/15/2018 contraceptive Screening for STDs (sexually transmitted diseases) 6 10/07/2015 Depo-Provera contraceptive status 09/03/20142017 Immunizations up to date 09/03/2014 10/07/2015 Unsatisfactory Pap smear 02/03/2013 07/08/2015 Rubella immune 12/26/2012 10/07/2015 documented as of this encounter (statuses as of 08/27/2019) Immunizations Name Administration Dates Next Due Tdap 10/31/2011 documented as of this encounter Social History Tobacco Use Types Packs/Day Years Used Date Current Some Day Smoker Cigarettes 0.3 10 Smokeless Tobacco: Never Used Comments: states only smokes on occasion Alcohol Use Drinks/Week oz/Week Comments Yes 0 Standard drinks or equivalent 0.0 socially Sex Assigned at Date Recorded Not on file Job Start Date Occupation Industry Not on file Not on file Not on file Travel History Travel Start Travel End No recent travel history available. documented as of this encounter Last Filed Vital Signs Vital Sign Reading Time Taken Comments Blood Pressure 120/82 08/27/2019 1:50 PM [employer] Pulse 71 08/27/2019 1:50 PM [employer] Temperature 36.7 C (98 F) 08/27/2019 1:50 PM [employer] Respiratory Rate 16 08/27/2019 1:50 PM [employer] Oxygen Saturation - - Inhaled Oxygen Concentration - - Weight 55.9 kg (123 lb 3 oz) 08/27/2019 1:50 PM [employer] Height 157.5 cm (5' 2") 08/27/2019 1:50 PM [employer] Body Mass Index 22.53 08/27/2019 1:50 PM [employer] SUPERVIS[employer] documented in this encounter Progress Notes Kelsea Garcia RN - 08/27/2019 1:30 PM CST33 year old female has been identified byDOB and name.Verbalconsent has been obtained by patientto have an injection of Depo Provera, as ordered by the provider. Date of last Depo Provera injection:06/03/2019 Last WWE:03/11/2019 Encounter Diagnosis: v25.49 The site was cleaned with an alcohol swab and givenintramuscularly (IM)in the rightgluteus. A band aid dressing was then applied to the injection site. The patient tolerated the procedure well. Advised patient on Calcium intake 500-1200 mg daily. ED warnings given.pt to rtc in 12 weeks. Patient verbalized understanding. 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 Author Type Problems Progress Quit using Tobacco Use No Anthony, tobacco Mendy N, [employer] (cigarettes, smokeless, etc) documented as of this encounter Results Not on filedocumented in this encounter Visit Diagnoses Diagnosis Encounter for Depo-Provera contraception - Primary Surveillance of other previously prescri bed contraceptive method documented in this encounter Administered Medications Medication Order MAR Action Action Date Dose Rate Site medroxyPROGESTERone Given 08/27/2019 2:06 150 mg Right (DEPO-PROVERA) injection 150 PM [employer]ITE [employer] SUPERVISOR Dorsogluteal-IM mg 150 mg, Intramuscular, [id number], First dose on Sun10/15/18 at 1545, Until Discontinued, Routine Given 06/03/2019 2:56 PM WHITE [employer] SUPERVISOR 150 mg Left Dorsogluteal-IM Given 03/11/2019 2:52 PM CDT 150 mg Righ t Upper Quad. 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
[2019-11-06] MEDS ORDERED: ACETAMINOPHEN 325 MG TABLET ONE (00:41)
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
--- NOTE | 2019-11-06 12:31 | RAD REPORT ---
EXAM DESCRIPTION: RAD - Elbow Left 2 View - 11/06/2019 2:05 am' CLINICAL HISTORY: 11/06/2019 2:05 am COMPARISON: None. FINDINGS: No evidence for an acute fracture of the left humerus or left elbow. No dislocation. Surrounding soft tissues are unremarkable. IMPRESSION: No evidence for an acute fracture of the left humerus or left elbow. Electronically signed by: Ronaldo Guzman MD 11/06/2019 1:44 AM CDT Due to temporary technical issues with the PACS/Fluency reporting system, reports are being signed by the in house radiologist as a courtesy to ensure prompt reporting. The interpreting radiologist is f ully responsible for the content of the report.
[2019-11-07 00:56] VITALS: TEMP 98.4
[2019-11-07 00:57] VITALS: BP 123/98; O2SAT 100
== END 2019-11-06 02:08 | disposition home or self-care (01) ==
LOC: ER 00:13
DX: S16.1XXA Strain of muscle, fascia and tendon at neck level, initial encounter (principal); S40.022A Contusion of left upper arm, initial encounter; Y04.2XXA Assault by strike against or bumped into by another person, initial encounter; Y93.9 Activity, unspecified; Y92.89 Other specified places as the place of occurrence of the external cause; Z72.0 Tobacco use; I10 Essential (primary) hypertension; F31.9 Bipolar disorder, unspecified
CPT/HCPCS: 70450; 72125; 99283

== ENCOUNTER 2020-06-15 23:01 | Emergency (ER) | payer SELFPAY ==
--- OUTSIDE RECORDS SUMMARY | 2020-06-15 23:04 | XMS REPORT | Summary of Care ---
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 Care Provider Reason for Visit Reason Comments Well Woman Exam Encounter Details Date Type Department Care Team Description 05/06/2020 Office Visit [facility]- Mendy Cruz Wel l woman exam (Primary Dx); [facility][1] Encounter for surveillance of injectable contraceptive; [address] Need for influenza vaccination [facility] [place], [place] [id number] [phone] Allergies No Known Allergiesdocumented as of this encounter (statuses as of 05/06/2020) Medications Medication Sig Dispensed Refills Start Date End Date Status tramadol-acetaminophen Take 1 tablet by 0 Active 37.5-325 mg per tablet mouth every 6 (six) hours as needed for Pain. Hospital, Clinic, or Ordered Dose Route Frequency Start Date End D ate Status Other Facility Administered Medication medroxyPROGESTERone 150 mg IM [id number] 05/06/2020 Active (DEPO-PROVERA) injection 1 150 mgIndications: Encounter for surveillance of injectable contraceptive medroxyPROGESTERone 150 mg IM [id number] 10/15/2018 Discontinued (DEPO-PROVERA) injection 0 150 mgIndications: Encounter for prescription for progestin-only injected contraceptive documented as of this encounter (statuses as of 05/06/2020) Active Problems Problem Noted Date Encounter for prescription for progestin-only injected contraceptive 10/15/2018 Irregular menses 01/31/2018 Well woman exam 10/07/2015 Mollusca contagiosa 10/07/2015 Tobacco use disorder 10/07/2015 Contraceptive management 07/08/2015 documented as of this encounter (statuses as of 05/06/2020) Resolved Problems Problem Noted Date Resolved Date Encounter for surveillance of Nexplanon subdermal 02/05/2018 10/15/2018 contraceptive Screening for STDs (sexually transmitted diseases) 6 10/07/2015 Depo-Provera contraceptive status 09/03/20142017 Immunizations up to date 09/03/2014 10/07/2015 Unsatisfactory Pap smear 02/03/2013 07/08/2015 Rubella immune 12/26/2012 10/07/2015 documented as of this encounter (statuses as of 05/06/2020) Immunizations Name Administration Dates Next Due Influenza Virus Vaccine Quad .5 mL IM 6+ MO 05/06/2020 TDAP 10/31/2011 documented as of this encounter Social History Tobacco Use Types Packs/Day Years Used Date Current Some Day Smoker Cigarettes 0.3 10 Smokeless Tobacco: Never Used Tobacco Cessation: Counseling Given: Yes Comments: states only smokes on occasion Alcohol Use Drinks/Week oz/Week Comments Yes 0 Standard drinks or equivalent 0.0 socially Sex Assigned at Date Recorded Not on file COVID-19 Exposure Response Date Recorded In the last month, have you been in contact with No / Unsure 05/06/2020 3:41 PM REGI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 someone who was confirmed or suspected to have Coronavirus / COVID-19? documented as of this encounter Last Filed Vital Signs Vital Sign Reading Time Taken Comments Blood Pressure 120/79 05/06/2020 3:41 PM REGI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 Pulse 93 05/06/2020 3:41 PM REGI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 Temperature 36.6 C (97.9 F) 05/06/2020 3:41 PM REGI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 Respiratory Rate 16 05/06/2020 3:41 PM REGI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 Oxygen Saturation - - Inhaled Oxygen Concentration - - Weight 58.2 kg (128 lb 4.8 oz) 05/06/2020 3:41 PM REGI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 Height 157.5 cm (5' 2") 05/06/2020 3:41 PM REGI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 Body Mass Index 23.47 05/06/2020 3:41 PM REGI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 documented in this encounter Patient Instructions Patient InstructionsJazlyn Ronquillo LVN - 05/06/2020 3:30 PM CST Patient Education Clinical Breast Exam Many health organizations recommend a yearly clinical breast exam. This exam may be done by a school photographs detailer, family healthcare provider, nurse practitioner, nurse straw hat machine operator, or specially trained nurse. Yearly breast exams help tomake surethat breast conditions are found early. Your healthcare providers role A healthcare professional knows the tests and follow-up care needed if a problem is found. Your clinical exam is also a great time to ask questions about breast self-exams. You can find out if yourechecking your breasts in the best way. Or you may want to ask how , breast implants, or breast reduction surgery affect the way you should check your breasts. Diagnostic tests If a clinical exam reveals a breast change, you may have other tests to find out more. These tests may include: Mammography. A low-dose X-ray of your breast tissue. Ultrasound. An imaging test that uses sound waves to create images of your breast. Biopsy. A small amount of breast tissue is removed by needle or by a cut (incision). The tissue is then checked under a microscope. Guidelines for having clinical breast exams The [employer] recommends that starting at age 29, you should have a clinical breast exam every 1 to 3 years. After age 40, have a clinical breast exam each year. If youre at higher risk for breast cancer, you may need exams more often. Risk factors for breast cancer may include: Being over 50 or postmenopausal Having a family history of breast cancer Having the BRCA1 or BRCA2 gene mutation or certain other gene mutations Having more menstrual periods due to starting menstruation early(before age 12) or having a late menopause (after age 55) Having no pregnancies Having a first after age 30 Being obese Having a history of radiation treatment to your chest area Exposure to TRISTEN during your mother's Not being active Drinking too much alcohol Having dense breast tissue Taking hormone therapy after menopause Other health organizations have different recommendations. Talk with your healthcare provider about what is best for you. [employer] reviewed this educational content on 10/01/201919999162-2141 [employer]. All rights reserved. This information is not intended as a substitute for professional medical care. Always follow your healthcare professional's instructions. Patient Education Breast Health: Breast Self-Awareness What is breast self-awareness? Breast self-awareness is knowing how your breasts normally look and feel. Your breasts change as yougo through different stages of your life. So its important to learn what is normal for your breasts. Knowing about your breasts helps you spot any changes in them right away. Tell your healthcare provider about any changes. Why is breast self-awareness important? Many experts now say that women should focus on breast self-awareness instead of doing a breast self-examination (BSE). These experts include the [employer] and the [employer]. Some experts even advise not teaching women to do a BSE. Thats because research hasnt shown a clear benefit to doing BSEs. Breast self-awareness is different than a BSE. It isnt about following a certain method and schedule. Its about knowing what's normal for your breasts. That way you can spot even small changes right away. If you see any changes, tell your healthcare provider. Changes to look for Call your healthcare provider if you find any changes in your breasts that worry you. These changes may be: A lump Nipple discharge other than breast milk, especially if it's bloody Swelling A change in size or shape Skin changes, such as redness, thickening, or dimpling of the skin Swollen lymph nodes in the armpit Nipple problems, such as pain or redness If you find a lump Call your provider if you find lumpiness in one breast. Also call if you feel something different inthe tissue or feel a definite lump. Sometimes lumpiness may be due to menstrual changes. But there may be reason for concern. Your provider may want to see you right away if you have: Nipple discharge that is bloody Skin changes on your breast, such as dimpling or puckering Its okay to be upset if you find a lump. Be sure to call your provider right away. Remember that most breast lumps are benign. This means they are not cancer. [employer] last reviewed this educational content on 10/31/201919991236-9955 [employer]. All rights reserved. This information is not intended as a substitute for professional medical care. Always follow your healthcare professional's instructions. Patient Education Prevention Guidelines,Women Ages 18 to 39 Screening tests and vaccines are an important part of managing your health. A screening test is doneto find possible disorders or diseases in people who don't have any symptoms. The goal is to find a disease early so lifestyle changes can be made and you can be watched more closely to reduce the riskof disease, or to detect it early enough to treat it most effectively. Screening tests are not considered diagnostic, but are used to determine if more testing is needed. Health counseling is essential, too. Below are guidelines for these, for women ages 18 to 39. Talk with your healthcare provider tomake sure youre up-to-date on what you need. Screening Who needs it How often Alcohol misuse All women in this age group At routine exams Blood pressure All women in this age group Yearly checkup if your blood pressure is normal Normal blood pressure is less than 120/80 mm Hg If your blood pressure reading is higher than normal, follow the advice of your healthcare provider Breast cancer All women in this age group should talk with their healthcare providers about the needfor clinical breast exams (CBE)1 Clinical breast exam every 3 years1 Cervical cancer Women ages 21 and older Women between ages 21 and 29 should have a Pap test every 3years; women between ages 30 and 65 are advised to have a Pap test plus an HPV test every 5 years Chlamydia Sexually active women ages 24 and younger, and women at increased risk for infection Every 3 years if you're at risk or have symptoms Depression All women in this age group At routine exams Diabetes mellitus, type 2 Adults with no symptoms who are overweight or obese and have 1 or more other risk factors for diabetes At least every 3 years. Also, testing for diabetes during after the 24th week. Gonorrhea Sexually active women at increased risk for infection At routine exams Hepatitis C Anyone at increased risk At routine exams HIV All women At routine exams3 Obesity All women in this age group At routine exams Syphilis Women at increased risk for infection should talk with their healthcare provider At routine exams Tuberculosis Women at increased risk for infection should talk with their healthcare provider Ask your healthcare provider Vision All women in this age group At least 1 complete exam in your 20s, and 2 in your 30s Vaccine Who needs it How often Chickenpox (varicella) All women in this age group who have no record of this infection or vaccine2 doses; the second dose should be given 4 to 8 weeks after the first dose Hepatitis A Women at increased risk for infection should talk with their healthcare provider 2 doses given at least 6 months apart Hepatitis B Women at increased risk for infection should talk with their healthcare provider 3 doses over 6 months; second dose should be given 1 month after the first dose; the third dose should be given at least 2 months after the second dose and at least 4 months after the first dose Haemophilus influenzae Type B (HIB) Women at increased risk for infection should talk with their healthcare provider 1 to 3 doses Human papillomavirus (HPV) All women in this age group up to age 26 3 doses; the second dose should be given 1 to 2 months after the first dose and the third dose given 6 months after the first dose Influenza (flu) All women in this age group Once a year Measles, mumps, rubella (MMR) All women in this age group who have no record of these infections orvaccines 1 or 2 doses Meningococcal Women at increased risk for infection should talk with their healthcare provider 1 ormore doses Pneumococcal conjugate vaccine (PCV13)and pneumococcal polysaccharidevaccine(PPSV23) Women atincreased risk for infection should talk with their healthcare provider PCV13: 1 dose ages 19 to 65(protects against 13 types of pneumococcal bacteria) PPSV23: 1 to2 doses through age 64, or 1 dose at 65 or older (protects against 23 types of pneumococcal bacteria) Tetanus/diphtheria/pertussis (Td/Tdap) booster All women in this age group Td every 10 years, or a one-time dose of Tdap instead of a Td booster after age 18, then Td every 10 years Counseling Who needs it How often BRCA gene mutation testing for breast and ovarian cancer susceptibility Women with increased risk for having gene mutation When your risk is known Breast cancer and chemoprevention Women at high risk for breast cancer When your risk is known Diet and exercise Women who are overweight or obese When diagnosed, and then at routine exams Domestic violence Women at the age in which they are able to have children At routine exams Sexually transmitted infection prevention Women who are sexually active At routine exams Skin cancer Prevention of skin cancer in fair-skinned adults At routine exams Use of tobacco and the health effects it can cause All women in this age group Every visit 1 According to the ACS, women ages 20 to 39 years should have a clinical breast exam (CBE) as part of their routine health exam every 3 years. Breast self-exams are an option for women starting in their 20s.But the U.S. Preventive Services Task Force (USPSTF) does not recommend CBE. 2 Those who are 18 years old and not up-to-date on their childhood vaccines should get all appropriate catch-up vaccines recommended by the CDC. 3 The USPSTF recommends that all people ages 15 to 65 years be screened for HIV and those younger orolder people at increased risk. The CDC recommends that everyone between the ages of 13 and 64 get tested for HIV at least once as part of routine health care. [employer] last reviewed this educational content on 04/01/201719993296-6071 [employer]. All rights reserved. This information is not intended as a substitute for professional medical care. Always follow your healthcare professional's instructions. Patient Education Understanding STIs When it comes to sex, nothing is risk-free. Any sexual contact with the penis, vagina, anus, or mouth can spread a sexually transmitted infection (STI). These include chlamydia, gonorrhea, herpes, HIV,and genital warts. STIs are also known as sexually transmitted diseases (STDs). The only sure way toprevent STIs is not having sex (abstinence). But there are ways to make sex safer. Use a latex condom each time you have sex. And choose your partner wisely. Use condoms for safer sex If you have sex, latex condoms provide the best protection against STIs. Latex condoms stop the exchange of body fluids that carry certain STIs. They also limit contact with affected skin. Be aware that a condom doesnt cover all skin. So affected skin that isn't covered can still transfer disease. But youre safer with a condom than without one. Use a condom even if you use other control. control methods such as the pill or IUD help prevent , but they don't protect against STIs. Choose the right condom Condoms made of latex prevent disease best. If youre allergic to latex, use polyurethane condoms instead. Male condoms fit over the penis. Female condoms line the vagina. Before buying a condom, read the label to be sure it prevents disease. Some novelty condoms dont. The right lubricant helps Buy lubricated condoms or use lubricant. This provides greater comfort and reduces the risk for condom breakage. Use only water-based lubricants. Dont use oil, lotion, or petroleum jelly. They can weaken the condom, causing breakage. Also, you may want to choose lubricants without nonoxynol-9. This spermicide may cause irritation. It can raise the risk for certain STIs. Use condoms correctly For condoms to work, they must be used the right way. Keep these tips in mind: Use a new latex condom each time you have sex. Slip the condom on the penis before any contact ismade. When ready to withdraw, hold the rim of the condom as the penis pulls out. This prevents the condom from slipping off. Check the expiration date before using a condom. Dont store condoms in places that can get hot, such as a car or a wallet that is carried in a back pocket. Get to know your partner Safer sex is a process. It involves getting to know your partner and making informed choices. Ask each other how many partners you have had in the past, and how many you have now. Find out if either ofyou has HIV or any other STI. If you decide to have sex, use a condom each time. Dont stop using condoms unless youre sure neither of you has other partners and youve both been tested to confirm you dont have HIV or other STIs. Then stay free of disease by having sex only with each other (monogamy). Keep your cool Dont let alcohol or drugs cloud your judgment. They could lead you to have sex with someone you wouldnt have chosen if you were sober. Or you might forget to use a condom. If you do plan to have sex, keep a latex condom with you. Dont wait until youre in the heat of passion to try to find one. Consider abstinence The only way to be sure you wont get an STI is to abstain from sex. Abstinence is a choice that many people make at some point in their life. Maybe you want to wait until you are sure youre readybefore you have sex. Maybe youd like a break from the responsibilities of sex for a while. Or maybe you just want to know your partner better before taking the next step. Abstinence is a choice you can make now to protect your future. [employer] last reviewed this educational content on 06/01/201819991100-0108 [employer]. [address] [place] [address], [place] [address]. All rights reserved. This information is not intended as a substitute for professional medical care. Always follow your healthcare professional's instructions. Patient Education Understanding HIV and AIDS It's important to know how HIV can get into your body and what happens once its there. Then youll be better prepared to protect yourself or others against this virus. A person with HIV can look and feel perfectly healthy. But that person can give HIV to others as soon as he or she is infected with the virus. Having unsafe or unprotected sex or sharing needles puts you at risk for HIV. Talk with your healthcare provider about ways to protect yourself or a loved one from getting HIV. How HIV infection progresses After HIV enters the body, it attacks the immune system in the stages below. A person with HIV can infect others once the virus gets into the blood. HIV with no symptoms. A person with HIV may have no symptoms for years. The only sign of infection may be a positive blood test for HIV 2 weeks to 3 months or later after HIV enters the body. HIV with symptoms. Some people develop an illness similar to mono (mononucleosis) 2 to 4 weeks after the virus enters the body. This is called acute retroviral syndrome. Symptoms may include swollen lymph glands, chills, fever, night sweats, weakness, weight loss, skin rashes, mouth ulcers, or sore t hroat. Symptoms may be mild or the person can feel quite sick. Even without treatment the symptoms almost always go away in a few days or up to 2 to 3 weeks. Then the person has no symptoms, often for years. But over time the immune system starts to get weaker and symptoms start appearing. People at this stage may have a yeast infection in the mouth (oral thrush), shingles, skin problems, pneumonia, diarrhea that keeps coming back, or weight loss. AIDS. AIDS is the most advanced stage of HIV infection, when the immune system is severely weakened.Certain rare diseases and cancers that normally would not occur, now can occur because the body can no longer fight them well enough. It is often these diseases that cause in people with AIDS. HIV may also directly attack the brain and nervous system. This causes seizures and loss of memory and body movement. It also affects many other parts of the body. This leads to problems such as anemia, low white blood cell count, diarrhea, belly pain, skin problems, and many others. How HIV enters the body HIV is carried in semen, vaginal fluid, blood, and breastmilk. During sex, HIV can enter the body. It gets in through the fragile tissue and linings, sores, or cuts in or around the vagina, penis, anus, and mouth. During drug use, tattooing, or body piercing, the virus can enter the blood through an infected needle. A mother who has HIV can infect her child during , childbirth, and . [employer] last reviewed this educational content on 11/30/201819993079-0202 [employer]. [address] [place] [address]. All rights reserved. This information is not intended as a substitute for professional medical care. Always follow your healthcare professional's instructions. Patient Education Eating Heart-Healthy Foods Eating has a big impact on your heart health. In fact, eating healthier can improve several of your heart risks at once. For instance, it helps you manage weight, cholesterol, and blood pressure. Here are ideas to help you make heart- healthy changes without giving up allthe foods and flavors you love. Getting started Talk with your healthcare provider about eating plans, such as the DASH or Mediterranean diet. You may also be referred to a dietitian. Change a few things at a time. Give yourself time to get used to a few eating changes before adding more. Work to create a tasty, healthy eating plan that you can stick to for the rest of your life. Goals for healthy eating Below are some tips to improve your eating habits: Limit saturated fats and trans fats. Saturated fats raise your levels of cholesterol, so keep these fats to a minimum. They are found in foods such as fatty meats, whole milk, cheese, and palm and coconut oils. Avoid trans fats because they lower good cholesterol as well as raise bad cholesterol. Trans fats are most often found in processed foods, such as pastries, cookies, pies, muffins, fried foods, stick margarines, and shortening. Reduce how much sodium (salt) you have. Eating too much salt may increase your blood pressure. Limit your sodium intake to 2,300 milligrams (mg) per day(the amount in 1 teaspoon of salt), or less if your healthcare provider recommends it. Dining out less often and eating fewer processed foods aretwo great ways to decrease the amount of salt you consume. At home, flavor your foods with other spices and herbs instead of salt. Managing calories. A calorie is a unit of energy. Your body fernandes calories for fuel, but if you eat more calories than your body fernandes, the extras are stored as fat. Your healthcare provider can help you create a diet plan to manage your calories. This will likely include eating healthier foods andgetting regular exercise. To help you track your progress, keep a diary to record what you eat and how often you exercise. Choose the right foods Aim to make these foods jb of your diet. If you have diabetes, you may have different recommendations than what is listed here: Fruits and vegetables provide plenty of nutrients without a lot of calories. At meals, fill half your plate with these foods. Choose between fresh, frozen, canned, or dried without added sauces, salt, or sugars. Split the other half of your plate between whole grains and lean protein. Whole grains are high in fiber and rich in vitamins and nutrients. Good choices include whole wheat bread, pasta, oats, and brown rice. Make at least half of your grains whole grains. Lean proteins give you nutrition with less fat. Good choices include fish, skinless chicken and turkey, and beans. Draining the fat from cooked ground meat is another way to reduce the amount of fatyou eat. Low-fat and nonfat dairy provide nutrients without a lot of fat. Try low-fat or nonfat milk, cheese, or yogurt. Healthy fats can be good for you in small amounts. These are unsaturated fats, such as olive oil,nuts, and fish. Try to have at least 2 servings per week of fatty fish, such as salmon, sardines, mackerel, rainbow trout, and albacore tuna. These contain omega-3 fatty acids, which are good for your heart. Flaxseed and walnuts are other sources of heart-healthy fats. More on heart-healthy eating Read food labels Healthy eating starts at the grocery store. Be sure to pay attention to food labels on packaged foods. Look for products that are high in fiber and protein, and low in saturated fat, added sugars, and sodium. Avoid products that contain trans fat. And pay close attention to serving size. For instance,if you plan to eat two servings, double all the numbers on the label. Prepare food right A arevalo part of healthy cooking is cutting down on added fat, sugar and salt. Look on the internet forlower-fat, lower-sodium recipes without a lot of added sugars. Also try these tips: Remove fat from meat and skin from poultry before cooking. Skim fat from the surface of soups and sauces. Broil, roast, boil, bake, steam, grill, or microwave food without added fats. Choose ingredients that spice up your food without adding calories, fat, sugar, or sodium. Try these items: horseradish, hot sauce, lemon, mustard, nonfat salad dressings, and vinegar. Small amountsof olive oil-based vinaigrettes are OK, too. For salt-free herbs and spices, try basil, cilantro, cinnamon, cumin, paprika, pepper, and shane. [employer] last reviewed this educational content on 12/31/201919993517-1184 [employer]. All rights reserved. This information is not intended as a substitute for professional medical care. Always follow your healthcare professional's instructions. Patient Education Understanding USDA MyPlate [employer] has guidelines to help you make healthy food choices. These are called MyPlate. MyPlate shows the food groups that make up healthy meals using the image of a place setting. Before you eat, think about the healthiest choices for what to put on your plate or in your cup or bowl. To learn more about building a healthy plate, visit www.choosemyplate.gov. The food groups Fruits. Any fruit or 100% fruit juice counts as part of the Fruit Group. Fruits may be fresh, canned, frozen, or dried, and may be whole, cut-up, or pureed. Make 1/2 of your plate fruits and vegetables. Vegetables. Any vegetable or 100% vegetable juice counts as a member of the Vegetable Group. Vegetables may be fresh, frozen, canned, or dried. They can be served raw or cooked and may be whole, cut-up, or mashed. Make 1/2 of your plate fruits and vegetables. Grains. All foods made from grains are part of the Grains Group. These include wheat, rice, oats,cornmeal, and barley. Grains are often used to make foods such as bread, pasta, oatmeal, cereal, tortillas, and grits. Grains should be no more than 1/4 of your plate. At least half of your grains should be whole grains. Protein. This group includes meat, poultry, seafood, beans and peas, eggs, processed soy products(such as tofu), nuts (including nut butters), and seeds. Make protein choices no more than 1/4 of your plate. Meat and poultry choices should be lean or low fat. Dairy. The Dairy Group includes all fluid milk products and foods made from milk that contain calcium, such as yogurt and cheese. (Foods that have little calcium, such as cream, butter, and cream cheese, are not part of this group.) Most dairy choices should be low-fat or fat-free. Oils. Oils aren't a food group, but they do contain essential nutrients. However it's important to watch your intake of oils. These are fats that are liquid at room temperature. They include canola,corn, olive, soybean, vegetable, and sunflower oil. Foods that are mainly oil include mayonnaise, certain salad dressings, and soft margarines. You likely already get your daily oil allowance from the foods you eat. Things to limit Eating healthy also means limiting these things in your diet: Salt (sodium). Many processed foods have a lot of sodium. To keep sodium intake down, eat fresh vegetables, meats, poultry, and seafood when possible. Purchase low-sodium, reduced-sodium, or em-btub-xptwm food products at the store. And don't add salt to your meals at home. Instead, season them with herbs and spices such as dill, oregano, cumin, and paprika. Or try adding flavor with lemon or limezest and juice. Saturated fat. Saturated fats are most often found in animal products such as beef, pork, and chicken. They are often solid at room temperature, such as butter. To reduce your saturated fat intake, choose leaner cuts of meat and poultry. And try healthier cooking methods such as grilling, broiling,roasting, or baking. For a simple lower-fat swap, use plain nonfat yogurt instead of mayonnaise whenmaking potato salad or macaroni salad. Added sugars. These are sugars added to foods. They are in foods such as ice cream, candy, soda, fruit drinks, sports drinks, energy drinks, cookies, pastries, jams, and syrups. Cut down on added sugars by sharing sweet treats with a family member or friend. You can also choose fruit for dessert, and drink water or other unsweetened beverages. [employer] last reviewed this educational content on 12/01/201919995336-7530 [employer]. All rights reserved. This information is not intended as a substitute for professional medical care. Always follow your healthcare professional's instructions. 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 Patient desires to continue depo for contraception. Reviewed risks/benefits/alternative contraceptive methods. Denies cramps, vaginal discharge, genital lesions, breast pain and vaginal pain. Declines STD testing. Pt reports no past or present history of physical, sexual, and emotional abuse. Rubella: immune VZV: immune BMI: Body mass index is 23.47 kg/m. Td: 2011 Pap Smear: 01/2018 NILM and HPV negative Gardasil: N/A Mammogram:N/A Guaiac:N/A Colonoscopy:N/A Histories OB History Para Term AB Living 1 1 0 SAB TAB Ectopic Multiple Live Births # Outcome Date GA Lbr Nestor/2nd Weight Sex Delivery Anes PTL Lv 1 AB Past Medical History: Diagnosis Date Abnormal Pap smear last pap 10/2009 was normal Anemia 2017 has not been by PCP in 3 years Anxiety resolved Depression resolved Irregular menses 01/31/2018 Screening for STDs (sexually transmitted diseases) 07/12/2015 Tobacco use disorder 10/07/2015 Family History Problem Relation Age of Onset Colon Cancer Maternal Grandfather Other - see comments Maternal Grandfather cirrhosis Breast Cancer Maternal Aunt 56 Arthritis Mother Cancer Mother Leukemia Breast Cancer Mother Hypertension Mother Arthritis Maternal Aunt Ovarian Cancer Maternal Aunt Diabetes Maternal Aunt High cholesterol Maternal Aunt Hypertension Maternal Aunt Cancer Maternal Aunt Thyroid Heart Maternal Aunt Breast Cancer Maternal Aunt 54 Arthritis Maternal Grandmother Breast Cancer Maternal Grandmother Uterine Cancer Maternal Grandmother No Significant Medical Problems Father Cancer Sister thyroid No Significant Medical Problems Brother Hypertension Maternal Uncle Diabetes Maternal Uncle Breast Cancer Maternal Aunt 52 Asthma NoFHx defects NoFHx Genetic NoFHx Depression NoFHx Mental retardation NoFHx Neurological NoFHx Osteoporosis NoFHx Psychiatry NoFHx Family Status Relation Name Status MGFa MAunt Mo Alive MAunt MGMo Alive Fa Alive Sis Alive Bro Alive MUnc (Not Specified) PGMo Alive PGFa Alive MAunt (Not Specified) NoFHx (Not Specified) Past Surgical History: Procedure Laterality Date 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 Social History Socioeconomic History Marital status: Spouse name: Not on file Number of children: 0 Years of education: 10 Highest education level: Not on file Occupational History Occupation: Unemployed Social Needs Financial resource strain: Not on file Food insecurity Worry: Not on file Inability: Not on file Transportation needs Medical: Not on file Non-medical: Not on file Tobacco Use Smoking status: Current Some Day Smoker Packs/day: 0.30 Years: 10.00 Pack years: 3.00 Types: Cigarettes Smokeless tobacco: Never Used Tobacco comment: states only smokes on occasion Substance and Sexual Activity Alcohol use: Yes Alcohol/week: 0.0 standard drinks Comment: socially Drug use: Yes Types: Marijuana Comment: occassionally Sexual activity: Not Currently Partners: Male control/protection: Condom Comment: last sexual intercourse 02/08/2019 Lifestyle Physical activity Days per week: Not on file Minutes per session: Not on file Stress: Not on file Relationships Social connections Talks on phone: Not on file Gets together: Not on file Attends worship service: Not on file Active member of club or organization: Not on file Attends meetings of clubs or organizations: Not on file Relationship status: Not on file Intimate partner violence Fear of current or ex partner: Not on file Emotionally abused: Not on file Physically abused: Not on file Forced sexual activity: Not on file Other Topics Concern Service Not Asked Blood Transfusions No Caffeine Concern Not Asked Occupational Exposure Not Asked Hobby Hazards Not Asked Sleep Concern Not Asked Stress Concern Not Asked Weight Concern Not Asked Special Diet Not Asked Back Care Not Asked Exercise Not Asked Bike Helmet Not Asked Seat Belt Not Asked Self-Exams Not Asked Social History Narrative Denies domestic violence or abuse Pt states she feels safe at home. Lives with mother and grandmother. Hoahaoism preference none. Social History Substance and Sexual Activity Sexual Activity Not Currently Partners: Male control/protection: Condom Comment: last sexual intercourse 02/08/2019 Labs No new labs Radiology No new radiology. Allergies Sylvia has No Known Allergies. Medications Sylvia has a current medication list which includes the following prescription(s): tramadol-acetaminophen, and the following Facility-Administered Medications: medroxyprogesterone. Review of Systems Constitutional: Negative. HENT: Negative. Eyes: Negative. Respiratory: Negative. Breasts: Negative. Cardiovascular: Negative. Gastrointestinal: Negative. Genitourinary: Negative. Musculoskeletal: Negative. Skin: Negative. Neurological: Negative. Psychiatric/Behavioral: Negative. Endocrine: Endocrine negative BP 120/79 (BP Location: Right arm, Patient Position: Sitting, BP CUFF SIZE: Adult Medium) | Pulse 93 | Temp 36.6 C (97.9 F) (Oral) | Resp 16 | Ht 5' 2" (1.575 m) | Wt 128 lb 4.8 oz (58.2 kg) | BMI 23.47 kg/m Pregravid BMI: Could not be calculated Physical Exam Vitals reviewed. Constitutional: She is oriented to person, place, and time. She appears well- developed and well-nourished. Her body habitus is normal. Neck: No thyroid nodules and no thyromegaly palpated. Cardiovascular: Regular rate and rhythm. No murmur auscultated. Pulmonary/Chest: Breath sounds clear to auscultation. Normal inspiratory effort. Abdominal: Abdomen is soft. No mass palpated. No tenderness present. There is no hepatosplenomegaly. Neuro/Psychiatric: She has a normal mood and affect. She is oriented to person, place, and time. Skin: Skin normal. No lesion and no rash present. Assessment/Plan 1. Well woman exam Educated patient regarding self breast awareness. SBE monthly. Patient advised mammograms to begin at age 40 Encourage green leafy vegetables, lean meats and fruit in diet. Avoid fatty, fried, sugary foods. Increase H2O intake (1/2 body weight in ozs). Exercise 30 minutes daily x 7 days/week as tolerated. 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 2. Encounter for surveillance of injectable contraceptive D/w pt at length various BCMs including OCPs, Patch, Depo Provera, vaginal rings, condoms, implants and iuds. We discussed the risk/benefits/side effects of each. After discussion, pt desires to continue with depo. - medroxyPROGESTERone (DEPO-PROVERA) injection 150 mg 3. Need for influenza vaccination Administered today. VSS provided. - FLU VACC([id number]), 6+ MONTHS, IM, QUAD (FLUZONE/FLULAVAL/FLUARIX) Return to clinic in 12 weeks. Reviewed patient instructions and provided printed copy. at Unknown This visit did not involve counseling and coordination that comprised more than 50% of the visit time. Jazlyn Lindo LVN - 05/06/2020 3:30 PM CST35 year old female has been identified by and name. Verbal consent has been obtained by patientto have an injection of Depo Provera, as ordered by the provider. Date of last Depo Provera injection: 02/11/2020 Last WWE: 05/06/2020 Encounter Diagnosis: v25.49 The site was cleaned with an alcohol swab and given intramuscularly (IM) in the left gluteus. A band aid dressing was then applied to the injection site. The patient tolerated the procedure well . Advised patient on Calcium intake 500-1200 mg daily. ED warnings given. Patient to return to clinic in 12 weeks for next Depo. Patient verbalized understanding. Jazlyn Bhatt LVN 05/06/2020 4:10 PM Jazlyn Lindo LVN - 05/06/2020 3:30 PM CST35 year old presented to the clinic for WWE. 1) Previous BCM:depo 2) Desired BCM: depo 3) LMP: 2009 4) Last [place]:05/02/2020 5) Last Pap:01/31/2018 Results: negative 6) Tdap in last 10 years?10/31/2011 HPV?no 7) C/O none 8) Patient denies history of physical, emotional, or sexual abuse. Patient states she currently feels safe at home. 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 Author Type Problems Progress Quit using Tobacco Use No Anthony, tobacco Mendy N, WINDOWS SYSTEMS ADMINISTRATOR (cigarettes, smokeless, etc) documented as of this encounter Procedures Procedure Name Priority Date/Time Associated Diagnosis Comme nts FLU VACC ([id number]), Routine 05/06/2020 4:13 PM Need for inf luenza 6+ MONTHS, IM, QUAD REGI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 vaccination documented in this encounter Results Not on filedocumented in this encounter Visit Diagnoses Diagnosis Well woman exam - Primary Routine general medical examination at a health care facility Encounter for surveillance of injectable contraceptive Surveillance of other previously prescri bed contraceptive method Need for influenza vaccination Need for prophylactic vaccination and in oculation against influenza documented in this encounter Administered Medications Medication Order MAR Action Action Date Dose Rate Site medroxyPROGESTERone Given 05/06/2020 4:11 150 mg Left Upper Quad. (DEPO-PROVERA) injection 150 PM REGI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 Gluteus mg 150 mg, Intramuscular, [id number], 4 doses, First dose on Kriss 05/06/20 at 1600, Last dose on Kriss 01/13/21 at 1600, Routine documented in this encounter Insurance Payer Benefit Plan Subscriber ID Effective Phone Address Typ e / Group Dates [facility] [id number] 2017-Prese [phone] Medicaid WOMEN nt [address] [place] [address] documented as of this encounter Advance Directives Type Date Recorded Patient Planner Chief Explanati on Advance Directives and Living 01/04/2015 3:23 PM Will Power of Digital Marketing Associate
--- OUTSIDE RECORDS SUMMARY | 2020-06-15 23:04 | XMS REPORT | Summary of Care ---
:1985 Author Organization [facility] - Health Address [address] [place] [address] Care Team Providers Name Role Phone Anne Ricks Primary Care Provider Encounter Details Date Type Department Care Team Description 05/06/2020 Orders Only [facility] Doctor Unassigned, No [address] [facility] [place] [address] [address] [place] [address] Allergies No Known Allergiesdocumented as of this encounter (statuses as of 05/06/2020) Medications Medication Sig Dispensed Refills Start Date End Date Status tramadol-acetaminophen Take 1 tablet by 0 Active 37.5-325 mg per tablet mouth every 6 (six) hours as needed for Pain. Hospital, Clinic, or Other Ordered Dose Route Frequency Start Date End Date Status Facility Administered Medication medroxyPROGESTERone 150 mg IM [id number] 10/15/2018 Active (DEPO-PROVERA) injection 150 mgIndications: Encounter [...] 05/06/2020) Immunizations Name Administration Dates Next Due TDAP 10/31/2011 documented as of this encounter Social History Tobacco Use Types Packs/Day Years Used Date Current Some Day Smoker Cigarettes 0.3 10 Smokeless Tobacco: Never Used Comments: states only smokes on occasion Alcohol Use Drinks/Week oz/Week Comments Yes 0 Standard drinks or equivalent 0.0 socially Sex Assigned at Date Recorded Not on file documented as of this encounter Last Filed Vital Signs Not on filedocumented in this encounter Plan of Treatment Health Maintenance Due Date Last Done Comments INFLUENZA VACCINE (#1) 2020 Depression Screening 08/27/2020 08/27/2019 PAP SMEAR 01/31/2021 01/31/2018, 02/03/2013, 12/25/2012, Additional history exists DTaP,Tdap,and Td Vaccines (2 - 10/30/2021 10/31/2011 Td) PNEUMOCOCCAL 0-64 YEARS COMBINED Discontinued SERIES documented as of this encounter Goals Goal Patient Goal Associated Recent Patient-Stated? Author Type Problems Progress Quit using Tobacco Use No Anthony, tobacco Mendy N, FIBERGLASS AUTOBODY REPAIRER (cigarettes, smokeless, etc) documented as of this encounter Procedures Procedure Name Priority Date/Time Associated Diagnosis Comme nts ASSIGNMENT OF BENEFITS Routine 05/06/2020 3:30 PM MANAGER PRIVATE documented in this encounter Results Not on filedocumented in this encounter Insurance Payer Benefit Plan Subscriber ID Effective Phone Address Typ e / Group Dates [facility] [place] [id number] 2017-Ifeoma [phone] Medicaid WOMEN nt [address] [place] [address] documented as of this encounter Advance Directives Type Date Recorded Patient Operative Supervisor Explanati on Advance Directives and Living 01/04/2015 3:23 PM Will Power of Stock Sorter
--- OUTSIDE RECORDS SUMMARY | 2020-06-15 23:04 | XMS REPORT | Continuity of Care Document ---
:1985 Author Organization [facility] t Address [address] [place] [address] Care Team Providers Name Role Phone Mendy Morgan Attending Clinician Problems This patient has no known problems. Allergies, Adverse Reactions, Alerts This patient has no known allergies or adverse reactions. Medications This patient has no known medications. Procedures This patient has no known procedures. Encounters Start End Encounter Admission Attending Care Care Encounter Source Date/Time Date/Time Type Type Clinicians Facility Department ID 2020-05-06 2020-05-06 Office SONNY Gomes [id number] 15:32:18 16:10:31 Visit Mendy Jesus INSPECTOR SET UP AND LAY OUT [id number] [facility] [id number] MATERNAL [id number] & CHILD [address] [place] [address] Results This patient has no known results.
--- OUTSIDE RECORDS SUMMARY | 2020-06-15 23:04 | XMS REPORT | Summary of Care ---
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 Primary Care Provider Reason for Visit Reason Comments Well Woman Exam Encounter Details Date Type Department Care Team Description 05/06/2020 Office Visit [facility]- Mendy Cruz Wel l woman exam (Primary Dx); [facility] Encounter for surveillance of injectable contraceptive; [address] Need for influenza vaccination [facility] [place], [place] [id number] [phone] Allergies No Known Allergiesdocumented as of this encounter (statuses as of 05/06/2020) Medications Medication Sig Dispensed Refills Start Date End Date Status tramadol-acetaminophen Take 1 tablet by 0 Active 37.5-325 mg per tablet mouth every 6 (six) hours as needed for Pain. Hospital, Clinic, or Ordered Dose Route Frequency Start Date End D ate Status Other Facility Administered Medication medroxyPROGESTERone 150 mg IM [id number] 05/06/2020 Active (DEPO-PROVERA) injection 1 150 mgIndications: Encounter for surveillance of injectable contraceptive medroxyPROGESTERone 150 mg IM [id number] 10/15/2018 Discontinued (DEPO-PROVERA) injection 0 150 mgIndications: [...] with No / Unsure 05/06/2020 3:41 PM HOISTMAN someone who was confirmed or suspected to have Coronavirus / COVID-19? documented as of this encounter Last Filed Vital Signs Vital Sign Reading Time Taken Comments Blood Pressure 120/79 05/06/2020 3:41 PM HOISTMAN Pulse 93 05/06/2020 3:41 PM HOISTMAN Temperature 36.6 C (97.9 F) 05/06/2020 3:41 PM HOISTMAN Respiratory Rate 16 05/06/2020 3:41 PM HOISTMAN Oxygen Saturation - - Inhaled Oxygen Concentration - - Weight 58.2 kg (128 lb 4.8 oz) 05/06/2020 3:41 PM HOISTMAN Height 157.5 cm (5' 2") 05/06/2020 3:41 PM HOISTMAN Body Mass Index 23.47 05/06/2020 3:41 PM HOISTMAN documented in this encounter Patient Instructions Patient InstructionsJazlyn Ronquillo LVN - 05/06/2020 3:30 PM CST Patient Education Clinical Breast Exam Many health organizations recommend a yearly clinical breast exam. This exam may be done by a scene shifter, family healthcare provider, nurse practitioner, nurse dry press operator, or specially trained nurse. Yearly breast [...] Guidelines for having clinical breast exams The [place] [employer]nec[employer] recommends that [...] provider about what is best for you. [employer] dev reviewed this educational content on 10/01/201919995893-2826 [employer]. All rights reserved. This information is not [...] breast self-examination (BSE). These experts include the [place] [employer] and the [place] [employer] Gynec[employer]. Some experts [...] benign. This means they are not cancer. [employer] last reviewed this educational content on 10/31/201919991405-2053 [employer]. All rights reserved. This information is not [...] once as part of routine health care. [employer] last reviewed this educational content on 04/01/201719991515-5926 [employer]. All rights reserved. This information is not [...] can make now to protect your future. [employer] last reviewed this educational content on 06/01/201819995161-2018 [employer]. [address] [place] [address], [place] [address]. All rights reserved. This information is not [...] her child during , childbirth, and . [employer] last reviewed this educational content on 11/30/201819992917-9103 [employer]. [address] [place] [address]. All rights reserved. This information is not [...] cilantro, cinnamon, cumin, paprika, pepper, and shane. [employer] last reviewed this educational content on 12/31/201919995415-6430 [employer]. All rights reserved. This information is not intended as a substitute for professional medical care. Always follow your healthcare professional's instructions. Patient Education Understanding USDA MyPlate The [employer] has guidelines to help you make healthy [...] seafood when possible. Purchase low-sodium, reduced-sodium, or ak-gohl-ofzfn food products at the store. And don't [...] and drink water or other unsweetened beverages. [employer] last reviewed this educational content on 12/01/201919993342-3810 [employer]. All rights reserved. This information is not intended as a substitute for professional medical care. Always follow your healthcare professional's instructions. 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 Lives with mother and grandmother. Baptist preference none. 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 2. Encounter for surveillance of injectable contraceptive D/w pt at length various BCMs including OCPs, Patch, Depo Provera, vaginal rings, condoms, implants and iuds. We discussed the risk/benefits/side effects of each. After discussion, pt desires to continue with depo. - medroxyPROGESTERone (DEPO-PROVERA) injection 150 mg 3. Need for influenza vaccination Administered today. VSS provided. - FLU VACC([id number]), 6+ MONTHS, IM, QUAD (FLUZONE/FLULAVAL/FLUARIX) Return to [...] BCM: depo 3) LMP: 2009 4) Last [place]:05/02/2020 5) Last Pap:01/31/2018 Results: negative 6) Tdap in last 10 years?10/31/2011 HPV?no 7) C/O none 8) Patient denies history of physical, emotional, or sexual abuse. Patient states she currently feels safe at home. TMAN documented in this encounter Plan of Treatment Date Type Specialty Care Team Description 07/29/2020 Nurse Visit OB Satellites Visit, [facility] Nurse Health Maintenance Due Date Last Done [...] Tobacco Use No Anthony, tobacco Mendy N, DIETETICS TEACHER (cigarettes, smokeless, etc) documented as of this encounter Procedures Procedure Name Priority Date/Time Associated Diagnosis Comme nts FLU VACC ([id number]), Routine 05/06/2020 4:13 PM Need for inf luenza 6+ MONTHS, IM, QUAD HOISTMAN vaccination documented in this encounter Results Not [...] Left Upper Quad. (DEPO-PROVERA) injection 150 PM HOISTMAN Gluteus mg 150 mg, Intramuscular, [id number], 4 doses, First dose on Kriss 05/06/20 at 1600, Last dose on [place] 01/13/21 at 1600, Routine documented in this encounter Insurance Payer Benefit Plan Subscriber ID Effective Phone Address Typ e / Group Dates [facility] [id number] 2017-Prese [phone] Medicaid WOMEN nt [address] [place] [address] documented as of this encounter Advance Directives Type Date Recorded Patient Superintendent Stations Explanati on Advance Directives and Living 01/04/2015 3:23 PM Will Power of Reliability Manager
[2020-06-16] MEDS ORDERED: IBUPROFEN 200 MG TAB PO ONE (00:07)
[2020-06-16] MEDS ORDERED: ACETAMINOPHEN 325 MG TABLET ONE (00:07)
[2020-06-16 00:14] LABS: Absolute Lymphocytes (CBC) 2.6 K/uL (0.7-4.9); Basophils % 0.9 % (0-1.3); Hematocrit 42.4 % (36.0-45.0); Lymphocytes % 48.5 % (15.3-44.8); MPV 7.4 fL (7.6-11.3); RBC Red Blood Cell Count 4.14 M/uL (3.86-4.86)
[2020-06-16 00:15] LABS: Protime INR 0.84
[2020-06-16 00:16] LABS: Barbiturates NEGATIVE (NEGATIVE); Benzodiazepines NEGATIVE (NEGATIVE); Cocaine NEGATIVE (NEGATIVE); METHAMPHETAM NEGATIVE (NEGATIVE); Methadone NEGATIVE (NEGATIVE); Opiates NEGATIVE (NEGATIVE); Phencyclidine NEGATIVE (NEGATIVE); THC Cannibis POSITIVE (NEGATIVE)
[2020-06-16 00:25] LABS: ALT/SGPT 168 U/L (12-78); AST/SGOT 129 U/L (15-37); Albumin 3.8 g/dL (3.4-5.0); Alkaline Phosphatase 112 U/L (45-117); BUN Blood Urea Nitrogen 7 mg/dL (7-18); Bicarbonate 26 mmol/L (21-32); Bilirubin Direct < 0.1 mg/dL (0-0.2); Bilirubin Total 0.3 mg/dL (0.2-1.0); Glucose Level 98 mg/dL (74-106); Potassium 3.1 mmol/L (3.5-5.1); Protein, Total 7.8 g/dL (6.4-8.2); Sodium Level 146 mmol/L (136-145)
[2020-06-16 02:18] LABS: Urine Blood 2+ (NEG); Urine Glucose NEGATIVE (NEG); Urine Protein NEGATIVE (NEG); Urine Specific Gravity 1.015 (1.005-1.030); Urine pH 6.5 (5.0-7.0)
[2020-06-16 02:24] LABS: Blood Morphology Comment NOT SEEN (NOT SEEN); Platelet Estimate ADEQ
--- NOTE | 2020-06-16 08:23 | EDPHYS ---
Physician Documentation [facility] Name: Sylvia Cruz Age: 35 yrs Sex: Female : 1985 Arrival Date: 06/15/2020 Time: 23:06 Bed 19 Private MD: ED Physician Lakhwinder Blackmon HPI: 06/16 00:45 This 35 yrs old Female presents to ER via EMS with complaints of Suicidal tw4 Ideation, Psych Problem. 00:45 The patient presents to the emergency department with a history of a suicide gesture, tw4 where the patient cut wrists. Onset: The symptoms/episode began/occurred today. Associated signs and symptoms: The patient has no apparent associated signs or symptoms. The patient has not experienced similar symptoms in the past. LEGAL DOCUMENT ASSISTANT: 06/15 23:20 LMP N/A - Depo-provera Historical: - Allergies: 23:18 No Known Allergies; wh - PMHx: 23:18 Bipolar disorder; Depression; Hypertension; wh - Immunization history:: Adult Immunizations unknown. - Social history:: Smoking status: Patient uses alcohol, Patient/guardian denies using. ROS: 06/16 00:45 Constitutional: Negative for fever, chills, and weight loss, Cardiovascular: Negative tw4 for chest pain, palpitations, and edema, Respiratory: Negative for shortness of breath, cough, wheezing, and pleuritic chest pain, Abdomen/GI: Negative for abdominal pain, nausea, vomiting, diarrhea, and constipation, Back: Negative for injury and pain, Skin: Negative for injury, rash, and discoloration, Neuro: Negative for headache, weakness, numbness, tingling, and seizure. Psych: Positive for anxiety, alcohol dependence, suicide gesture, Negative for depression, auditory hallucinations, visual hallucinations, homicidal ideation. Exam: 00:45 Constitutional: This is a well developed, well nourished patient who is awake, alert, tw4 and in no acute distress. Head/Face: Normocephalic, atraumatic. Chest/axilla: Normal chest wall appearance and motion. Nontender with no deformity. No lesions are appreciated. Cardiovascular: Regular rate and rhythm with a normal S1 and S2. No gallops, murmurs, or rubs. Normal PMI, no JVD. No pulse deficits. Respiratory: Lungs have equal breath sounds bilaterally, clear to auscultation and percussion. No rales, rhonchi or wheezes noted. No increased work of breathing, no retractions or nasal flaring. Abdomen/GI: Soft, non-tender, with normal bowel sounds. No distension or tympany. No guarding or rebound. No evidence of tenderness throughout. MS/ Extremity: Pulses equal, no cyanosis. Neurovascular intact. Full, normal range of motion. Neuro: Awake and alert, GCS 15, oriented to person, place, time, and situation. Cranial nerves II-XII grossly intact. Motor strength 5/5 in all extremities. Sensory grossly intact. Cerebellar exam normal. Normal gait. 00:45 Psych: Behavior/mood is aggressive, uncooperative, Affect is animated, Oriented to person, place, time, Patient having thoughts of suicide. Denies suicidal plan. Judgement / Insight is impaired. 08:25 ECG was reviewed by the Attending Physician. neftaly Vital Signs: 06/15 23:33 BP 123 / 98; Pulse 105; Resp 18; Temp 98.2; Pulse Ox 100% ; Weight 56.7 kg; Height 5 wh ft. 2 in. (157.48 cm); 06/16 08:38 BP 116 / 93; Pulse 83; Resp 16; Pulse Ox 99% on R/A; zb 06/15 23:33 Body Mass Index 22.86 (56.70 kg, 157.48 cm) wh MDM: 06/15 23:09 Patient medically screened. tw4 06/16 08:23 Differential diagnosis: drug withdrawal. acute psychotic break, depression. Data neftaly reviewed: vital signs, nurses notes, lab test result(s), EKG, radiologic studies. Data interpreted: gambling monitor: rate is 105 beats/min, rhythm is regular, Pulse oximetry: on room air is 100 %. Test interpretation: by ED physician or midlevel provider: ECG. Counseling: I had a detailed discussion with the patient and/or guardian regarding: the historical points, exam findings, and any diagnostic results supporting the discharge/admit diagnosis, lab results, the need for outpatient follow up. ED course: improved, calm, not suicidal and not homicidal, will follow up , get help, stop drinking. 06/15 23:09 Order name: Acetaminophen; Complete Time: 02:41 tw4 06/15 23:09 Order name: Basic Metabolic Panel; Complete Time: 02:41 tw4 06/16 02:41 Interpretation: Normal except: NA 146; GFR 71; CL 112; K 3.1. [facility] 06/15 23:09 Order name: CBC with Diff; Complete Time: 02:41 [facility] 06/16 02:42 Interpretation: Normal except: MCH 35.8; MCV 102.6; LYM% 48.5; JOHN% 40.8; MPV 7.4. [facility] 06/15 23:09 Order name: ETOH Level; Complete Time: 02:41 [facility] 06/16 02:42 Interpretation: Abnormal: ETOH 371. [facility] 06/15 23:09 Order name: Hepatic Function; Complete Time: 02:41 [facility] 06/16 02:42 Interpretation: Normal except: AST 129; ALT 168; GLOB 4.0; A/G 1.0. [facility] 06/15 23:09 Order name: PT-INR; Complete Time: 02:41 [facility] 06/15 23:09 Order name: Ptt, Activated; Complete Time: 02:41 [facility] 06/15 23:09 Order name: Salicylate; Complete Time: 02:41 [facility] 06/16 02:42 Interpretation: Within normal limits: DALE 1.9. [facility] 06/15 23:09 Order name: Urine Drug Screen; Complete Time: 02:41 [facility] 06/16 02:42 Interpretation: Normal except: THC POSITIVE. [facility] 06/15 23:45 Order name: Urine Dipstick--Ancillary (enter results); Complete Time: 02:41 [facility] 06/15 23:45 Order name: Urine --Ancillary (enter results); Complete Time: 02:41 [facility] 06/16 00:22 Order name: Manual Differential; Complete Time: 02:41 [facility] 06/15 23:09 Order name: EKG; Complete Time: 23:10 [facility] 06/15 23:09 Order name: EKG - Nurse/Tech; Complete Time: 23:59 [facility] 06/15 23:09 Order name: IV Saline Lock; Complete Time: 23:59 [facility] 06/15 23:09 Order name: Labs collected and sent; Complete Time: 23:59 [facility] 06/15 23:09 Order name: Urine Dipstick-Ancillary (obtain specimen); Complete Time: 23:49 [facility] 06/16 08:20 Order name: PO challenge; Complete Time: 08:33 neftaly EC:25 Rate is 78 beats/min. Rhythm is regular. QRS [place] is Normal. MA interval is normal. QRS neftaly interval is normal. QT interval is normal. No Q waves. T waves are Normal. No ST changes noted. Clinical impression: Normal ECG and No evidence of ischemia. Interpreted by me. Reviewed by me. Administered Medications: 00:00 Drug: Tylenol 325 mg Route: PO; 08:37 Follow up: Response: No adverse reaction zb 00:00 Drug: Ibuprofen 200 mg Route: PO; 08:37 Follow up: Response: No adverse reaction zb 06:47 Not Given (Other Intervention Used): Geodon 20 mg IM once 08:36 Drug: Potassium Effervescent Tablet 50 mEq Route: PO; zb Disposition: 06/16/20 08:22 Discharged to Home. Impression: Suicidal ideations - resolved, Alcohol abuse with intoxication. - Condition is Stable. - Discharge Instructions: Alcohol Intoxication, Suicidal Feelings: How to Help Yourself, Helping Someone Who is Suicidal, Alcohol Intoxication, Soln-gk-Blyb, Alcohol Abuse and Nutrition, Stress and Stress Management. - Medication Reconciliation Form, Thank You Letter, Antibiotic Education, Prescription Opioid Use form. - Follow up: Private Physician; When: 2 - 3 days; Reason: Recheck today's complaints, Continuance of care, Re-evaluation by your physician. Follow up: Petey Villalobos MD; When: 2 - 3 days; Reason: Recheck today's complaints, Re-evaluation by your physician. - Problem is new. - Symptoms have improved. Signatures: Dispatcher [employer] EDMO Lakhwinder Blackmon MD MD cha Bryson, James, RN RN jb4 Jocelyne Crawley Terrence, MD MD tw4 Kathrine Huffman RN RN zb Corrections: (The following items were deleted from the chart) 06/15 23:49 23:09 [place] ordered. anson rivas 06/16 08:39 08:22 06/16/2020 08:22 Discharged to Home. Impression: Suicidal ideations - resolved; zb Alcohol abuse with intoxication. Condition is Stable. Forms are Medication Reconciliation Form, Thank You Letter, Antibiotic Education, Prescription Opioid Use. Follow up: Private Physician; When: 2 - 3 days; Reason: Recheck today's complaints, Continuance of care, Re-evaluation by your physician. Follow up: Petey Villalobos; When: 2 - 3 days; Reason: Recheck today's complaints, Re-evaluation by your physician. Problem is new. Symptoms have improved. neftaly
--- NOTE | 2020-06-16 08:23 | ER ---
Nurse's Notes [facility] Name: Sylvia Cruz Age: 35 yrs Sex: Female : 1985 Arrival Date: 06/15/2020 Time: 23:06 Bed 19 Private MD: Diagnosis: Suicidal ideations-resolved;Alcohol abuse with intoxication Presentation: 06/15 23:14 Chief complaint: EMS states: Pt was intoxicated at home, called dispatch and told she wh wanted to hurt herself. Pt has superficial cut on left wrist no bleeding noted. In Er Pt is denying intentions to hurt herself. TOMAS was administered by [facility]. Coronavirus screen: Client denies travel out of the [place] in the last 14 days. At this time, the client does not indicate any symptoms associated with coronavirus-19. Ebola Screen: Patient negative for fever greater than or equal to 101.5 degrees Fahrenheit, and additional compatible Ebola Virus Disease symptoms Patient denies exposure to infectious person. Initial Sepsis Screen: Does the patient meet any 2 criteria? No. Patient's initial sepsis screen is negative. Does the patient have a suspected source of infection? No. Patient's initial sepsis screen is negative. Risk Assessment: Do you want to hurt yourself or someone else? Patient reports no desire to harm self or others. Onset of symptoms was June 15, 2020. 23:14 Method Of Arrival: EMS: [facility] 23:14 Acuity: BONITA 2 LEAD DENTAL ASSISTANT: 23:20 LMP N/A - Depo-provera Historical: - Allergies: 23:18 No Known Allergies; - PMHx: 23:18 Bipolar disorder; Depression; Hypertension; - Immunization history:: Adult Immunizations unknown. - Social history:: Smoking status: Patient uses alcohol, Patient/guardian denies using. Screenin:19 Abuse screen: Denies threats or abuse. Denies injuries from another. Nutritional screening: No deficits noted. Tuberculosis screening: No symptoms or risk factors identified. Fall Risk None identified. Assessment: 23:19 General: Appears in no apparent distress. Behavior is agitated. Pain: Denies pain. Neuro: Level of Consciousness is awake, alert, obeys commands, Oriented to person, place, time, situation. Cardiovascular: Capillary refill < 3 seconds. Respiratory: Airway is patent Respiratory effort is even, unlabored, Respiratory pattern is regular, symmetrical. GI: Abdomen is flat, non-distended. : No signs and/or symptoms were reported regarding the genitourinary system. EENT: No signs and/or symptoms were reported regarding the EENT system. Derm: Skin is intact, is healthy with good turgor, Skin is pink, warm \T\ dry. normal. Musculoskeletal: Circulation, motion, and sensation intact. Injury Description: superficial laceration on left wrist. 06/16 00:30 Reassessment: Pt belongings were sent to [employer] for safekeeping. wh 01:00 Reassessment: TCF Sister Lisette states she will visit later today. Can be reached at [phone] wh [phone]. 02:00 Reassessment: Patient appears in no apparent distress at this time. Pt sleeping well no wh signs of distress noted. 04:00 Reassessment: Patient appears in no apparent distress at this time. Pt sleeping well no wh signs of distress noted. 06:00 Reassessment: Patient appears in no apparent distress at this time. Pt sleeping well no wh signs of distress noted. 07:12 General: Appears in no apparent distress. Behavior is calm, asleep. Pain: Unable to use zb pain scale. patient currently asleep. Neuro: Level of Consciousness is pt is currently resting . Cardiovascular: Patient's skin is warm and dry. Respiratory: Airway is patent Respiratory effort is even, unlabored, Respiratory pattern is regular, symmetrical. GI: Abdomen is flat, non-distended. : No signs and/or symptoms were reported regarding the genitourinary system. EENT: No signs and/or symptoms were reported regarding the EENT system. Derm: Skin is intact, is healthy with good turgor, Skin is pink, warm \T\ dry. normal. Musculoskeletal: Circulation, motion, and sensation intact. Injury Description: Laceration sustained to left wrist. 08:12 Reassessment: Patient appears in no apparent distress at this time. Patient and/or zb family updated on plan of care and expected duration. Pain level reassessed. Patient is alert, oriented x 3, equal unlabored respirations, skin warm/dry/pink. boyfriend at bedside, no expressed SI. ambulatory, d/c instructions given. Vital Signs: 06/15 23:33 BP 123 / 98; Pulse 105; Resp 18; Temp 98.2; Pulse Ox 100% ; Weight 56.7 kg; Height 5 wh ft. 2 in. (157.48 cm); 06/16 08:38 BP 116 / 93; Pulse 83; Resp 16; Pulse Ox 99% on R/A; zb 06/15 23:33 Body Mass Index 22.86 (56.70 kg, 157.48 cm) ED Course: 06/15 23:06 Patient arrived in ED. bp1 23:09 Leonel Galindo MD is Attending Physician. tw4 23:13 Jocelyne Crawley is Primary Nurse. wh 23:17 Triage completed. wh 23:19 Arm band placed on right wrist. wh 23:21 Patient has correct armband on for positive identification. Placed in gown. Bed in low wh position. Side rails up X 1. Sitter at bedside. 06/16 00:15 Inserted saline lock: 22 gauge in right antecubital area, using aseptic technique. Blood collected. 07:14 Attending Physician role handed off by Leonel Galindo MD [facility] 07:14 Lakhwinder Blackmon MD is Attending Physician. neftaly 08:22 Petey Villalobos MD is Referral Physician. neftaly 08:38 No provider procedures requiring assistance completed. IV discontinued, intact, zb bleeding controlled, No redness/swelling at site. Pressure dressing applied. Administered Medications: 00:00 Drug: Tylenol 325 mg Route: PO; 08:37 Follow up: Response: No adverse reaction zb 00:00 Drug: Ibuprofen 200 mg Route: PO; 08:37 Follow up: Response: No adverse reaction zb 06:47 Not Given (Other Intervention Used): Geodon 20 mg IM once 08:36 Drug: Potassium Effervescent Tablet 50 mEq Route: PO; zb Outcome: 08:22 Discharge ordered by . neftaly 08:39 Discharged to home ambulatory, with significant other. zb 08:39 Condition: stable 08:39 Discharge instructions given to patient, Instructed on discharge instructions, follow up and referral plans. Demonstrated understanding of instructions, follow-up care. 08:39 Patient left the ED. zb Signatures: Lakhwinder Blackmon MD MD cha Habalo, Winsy Leonel Galindo MD MD twFanny Fernandez [facility] Kathrine Huffman, RN RN zb
[2020-06-16] MEDS ORDERED: POTASSIUM 25 MEQ EFFERV TAB ONE (08:38)
--- NOTE | 2020-06-16 19:15 | EKG ---
Test Date: 2020-06-16 Test Time: 00:02:00 Captain Waiter: MEASUREMENT RESULTS: Intervals: Rate: 78 IN: 130 QRSD: 76 QT: 384 QTc: 437 [place]: P: 69 IN: 130 QRS: 29 T: 52 INTERPRETIVE STATEMENTS: Normal sinus rhythm with sinus arrhythmia Normal ECG Compared to ECG 06/13/2019 00:55:39 Sinus tachycardia no longer present Electronically Signed On 06-16-20 19:12:46 DENTAL HYGIENE PROFESSOR by Rito Thompson
[2020-06-18 01:40] VITALS: TEMP 98.2
[2020-06-18 01:41] VITALS: BP 116/93; O2SAT 99
== END 2020-06-16 08:39 | disposition home or self-care (01) ==
LOC: ER 23:01
DX: F10.129 Alcohol abuse with intoxication, unspecified (principal); F31.9 Bipolar disorder, unspecified; I10 Essential (primary) hypertension
CPT/HCPCS: 36415; 80048; 80076; 80307; 80320; 80329; 81003; 81025; 85025; 85610; 85730; 93005; 99284

== ENCOUNTER 2020-08-01 | Emergency (ER) | payer SELFPAY ==
--- OUTSIDE RECORDS SUMMARY | 2020-08-01 00:03 | XMS REPORT | Continuity of Care Document ---
:1985 Author Organization [facility] t Address [address] [place] [address] Care Team Providers Name Role Phone Visit, Cammie Nurse Attending Clinician Unavailable Ann Marie Morgan Attending Clinician Problems This patient has no known problems. Allergies, Adverse Reactions, Alerts This patient has no known allergies or adverse reactions. Medications This patient has no known medications. Procedures This patient has no known procedures. Encounters Start End Encounter Admission Attending Care Care Encounter Source Date/Time Date/Time Type Type Clinicians Facility Department ID 2020-07-29 2020-07-29 Nurse Visit, [facility] [id number] 14:20:34 14:34:34 Visit Cammie MAIL HANDLER EQUIPMENT OPERATOR [id number] Nurse REGIONAL [id number] MATERNAL [id number] & CHILD 107 [facility] 2020-05-06 2020-05-06 Office Anthoyn [facility] [id number] 15:32:18 16:10:31 Visit Mendy Jesus MAIL HANDLER EQUIPMENT OPERATOR [id number] [facility] [id number] MATERNAL [id number] & CHILD 107 [facility] Results This patient has no known results.
--- OUTSIDE RECORDS SUMMARY | 2020-08-01 00:05 | XMS REPORT | Summary of Care ---
:1985 Author Organization [facility] Address [address] [place] [id number] Care Team Providers Name Role Phone Anne Ricks Primary Care Provider Reason for Visit Reason Comments DEPO PROVERA Encounter Details Date Type Department Care Team Description 07/29/2020 Nurse Visit [facility]- Karrie Ricks, INTAKE COUNSELOR [address] [place] [address] Encounter for [place] Visit, [facility] Nurse Depo-Provera [address] [facility] contracep tion ([address] Street Dx) [place] [address] Allergies No Known Allergiesdocumented as of this encounter (statuses as of 07/29/2020) Medications Medication Sig Dispensed Refills Start Date End Date Status tramadol-acetaminophen Take 1 tablet by 0 Active 37.5-325 mg per tablet mouth every 6 (six) hours as needed for Pain. Hospital, Clinic, or Other Ordered Dose Route Frequency Start Date End Date Status Facility Administered Medication medroxyPROGESTERone 150 mg IM [id number] 05/06/2020 1 Active (DEPO-PROVERA) injection 150 mgIndications: Encounter for surveillance of injectable contraceptive documented as of this encounter (statuses as of 07/29/2020) Active Problems Problem Noted Date Encounter for prescription for progestin-only injected contraceptive 10/15/2018 Irregular menses 01/31/2018 Well woman exam 10/07/2015 Mollusca contagiosa 10/07/2015 Tobacco use disorder 10/07/2015 Contraceptive management 07/08/2015 documented as of this encounter (statuses as of 07/29/2020) Resolved Problems Problem Noted Date Resolved Date Encounter for surveillance of Nexplanon subdermal 02/05/2018 10/15/2018 contraceptive Screening for STDs (sexually transmitted diseases) 6 10/07/2015 Depo-Provera contraceptive status 09/03/20142017 Immunizations up to date 09/03/2014 10/07/2015 Unsatisfactory Pap smear 02/03/2013 07/08/2015 Rubella immune 12/26/2012 10/07/2015 documented as of this encounter (statuses as of 07/29/2020) Immunizations Name Administration Dates Next Due Influenza [...] been in contact with No / Unsure 07/29/2020 2:31 PM [facility] someone who was confirmed or suspected to have Coronavirus / COVID-19? documented as of this encounter Last Filed Vital Signs Vital Sign Reading Time Taken Comments Blood Pressure 132/90 07/29/2020 2:31 PM [facility] Pulse 93 07/29/2020 2:31 PM [facility] Temperature 36.9 C (98.4 F) 07/29/2020 2:31 PM [facility] Respiratory Rate 16 07/29/2020 2:31 PM [facility] Oxygen Saturation - - Inhaled Oxygen Concentration - - Weight 60.5 kg (133 lb 6.4 oz) 07/29/2020 2:31 PM [facility] Height 157.5 cm (5' 2") 07/29/2020 2:31 PM [facility] Body Mass Index 24.4 07/29/2020 2:31 PM [facility] documented in this encounter Patient Instructions Patient InstructionsDeysi Tapia MA - 07/29/2020 2:30 PM [facility] Patient Education Medroxyprogesterone injection [Contraceptive] Brand Names: Depo-Provera, Depo-subQ Provera 104 What is this medicine? MEDROXYPROGESTERONE (me DROX ee proe MARYCHUY te roman) contraceptive injections prevent . They provide effective control for 3 months. Depo-subQ Provera 104 is also used for treating pain related to endometriosis. How should I use this medicine? Depo-Provera Contraceptive injection is given into a muscle. Depo-subQ Provera 104 injection is given under the skin. These injections are given by a health reproductive healthcare assistant. You must not be before getting an injection. The injection is usually given during the first 5 days after the start of a menstrual period or 6 weeks after delivery of a baby. Talk to your recreation attendant regarding the use of this medicine in children. Special care may be needed. These injections have been used in female children who have started having menstrual periods. What side effects may I notice from receiving this medicine? Side effects that you should report to your doctor or health reproductive healthcare assistant as soon as possible: allergic reactions like skin rash, itching or hives, swelling of the face, lips, or tongue breast tenderness or discharge breathing problems changes in vision depression feeling faint or lightheaded, falls fever pain in the abdomen, chest, groin, or leg problems with balance, talking, walking unusually weak or tired yellowing of the eyes or skin Side effects that usually do not require medical attention (report to your doctor or health reproductive healthcare assistant if they continue or are bothersome): acne fluid retention and swelling headache irregular periods, spotting, or absent periods temporary pain, itching, or skin reaction at site where injected weight gain What may interact with this medicine? Do not take this medicine with any of the following medications: bosentan This medicine may also interact with the following medications: aminoglutethimide antibiotics or medicines for infections, especially rifampin, rifabutin, rifapentine, and griseofulvin aprepitant barbiturate medicines such as phenobarbital or primidone bexarotene carbamazepine medicines for seizures like ethotoin, felbamate, oxcarbazepine, phenytoin, topiramate modafinil Emely's wort What if I miss a dose? Try not to miss a dose. You must get an injection once every 3 months to maintain control. If you cannot keep an appointment, call and reschedule it. If you wait longer than 13 weeks between Depo-Provera contraceptive injections or longer than 14 weeks between Depo-subQ Provera 104 injections, you could get . Use another method for control if you miss your appointment. You may also need a test before receiving another injection. Where should I keep my medicine? This does not apply. The injection will be given to you by a health reproductive healthcare assistant. What should I tell my health care provider before I take this medicine? They need to know if you have any of these conditions: frequently drink alcohol asthma blood vessel disease or a history of a blood clot in the lungs or legs bone disease such as osteoporosis breast cancer diabetes eating disorder (anorexia nervosa or bulimia) high blood pressure HIV infection or AIDS kidney disease liver disease mental depression migraine seizures (convulsions) stroke tobacco smoker vaginal bleeding an unusual or allergic reaction to medroxyprogesterone, other hormones, medicines, foods, dyes, or preservatives or trying to get breast-feeding What should I watch for while using this medicine? This drug does not protect you against HIV infection (AIDS) or other sexually transmitted diseases. Use of this product may cause you to lose calcium from your bones. Loss of calcium may cause weak bones (osteoporosis). Only use this product for more than 2 years if other forms of control are not right for you. The longer you use this product for control the more likely you will be at risk for weak bones. Ask your health reproductive healthcare assistant how you can keep strong bones. You may have a change in bleeding pattern or irregular periods. Many females stop having periods while taking this drug. If you have received your injections on time, your chance of being is very low. If you think you may be , see your health reproductive healthcare assistant as soon as possible. Tell your health reproductive healthcare assistant if you want to get within the next year. The effect of this medicine may last a long time after you get your last injection. NOTE:This sheet is a summary. It may not cover all possible information. If you have questions aboutthis medicine, talk to your doctor, pharmacist, or health care provider. Copyright 2018 [employer] [facility] documented in this encounter Progress Notes Jazlyn Ronquillo LVN - 07/29/2020 2:30 PM CST35 year old female has been identified by and name. Verbal consent has been obtained by patientto have an injection of Depo Provera, as ordered by the provider. Date of last Depo Provera injection: 05/06/2020 Last WWE: 05/06/2020 Encounter Diagnosis: v25.49 The site was cleaned with an alcohol swab and given intramuscularly (IM) in the right gluteus. A band aid dressing was then applied to the injection site. The patient tolerated the procedure well . Advised patient on Calcium intake 500-1200 mg daily. ED warnings given. Patient to return to clinic in 12 weeks for next Depo. Patient verbalized understanding. Jazlyn Bhatt LVN 07/29/2020 3:12 PM [facility] documented in this encounter Plan of Treatment Date Type Specialty Care Team Description 10/21/2020 Nurse Visit OB Satell[facility] Visit, [facility] Nurse Health Maintenance Due Date Last Done Comments Depression Screening 08/27/2020 08/27/2019 PAP SMEAR 01/31/2021 01/31/2018, 02/03/2013, 12/25/2012, Additional history exists SARS-CoV-2 (COVID-19) 07/29/2021 Postponed from Vaccine (1 of 2) 2002 (Vac cine not available) DTaP,Tdap,and Td Vaccines 10/30/2021 10/31/2011 (2 - Td) INFLUENZA VACCINE Completed 05/06/2020 PNEUMOCOCCAL 0-64 YEARS Discontinued COMBINED SERIES documented as of this encounter Goals Goal Patient Goal Associated Recent Patient-Stated? Author Type Problems Progress Quit using Tobacco Use No Anthony, tobacco Mendy Jesus, INTAKE COUNSELOR (cigarettes, smokeless, etc) documented as of this encounter Results Not on filedocumented in this encounter Visit Diagnoses Diagnosis Encounter for Depo-Provera contraception - Primary Surveillance of other previously prescri bed contraceptive method documented in this encounter Administered Medications Medication Order MAR Action Action Date Dose Rate Site medroxyPROGESTERone Given 07/29/2020 3:12 150 mg Right Upper Quad. (DEPO-PROVERA) injection 150 PM [facility] Gluteus mg 150 mg, Intramuscular, [id number], 4 doses, First dose on Kriss 05/06/20 at 1600, Last dose on Kriss 01/13/21 at 1600, Routine Given 05/06/2020 4:11 PM [facility] 150 mg Left Upper Quad. 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
[2020-08-01 00:42] LABS: ALT/SGPT 109 U/L (12-78); AST/SGOT 109 U/L (15-37); Albumin 3.9 g/dL (3.4-5.0); Alkaline Phosphatase 129 U/L (45-117); BUN Blood Urea Nitrogen 8 mg/dL (7-18); Bicarbonate 20 mmol/L (21-32); Bilirubin Direct < 0.1 mg/dL (0-0.2); Bilirubin Total 0.2 mg/dL (0.2-1.0); Glucose Level 107 mg/dL (74-106); Lipase 153 U/L (73-393); Potassium 3.6 mmol/L (3.5-5.1); Sodium Level 144 mmol/L (136-145)
[2020-08-01 00:49] LABS: Urine Blood 2+ (NEG); Urine Glucose NEGATIVE (NEG); Urine Protein NEGATIVE (NEG); Urine Specific Gravity 1.025 (1.005-1.030)
[2020-08-01 00:51] LABS: Barbiturates NEGATIVE (NEGATIVE); Benzodiazepines NEGATIVE (NEGATIVE); Cocaine NEGATIVE (NEGATIVE); METHAMPHETAM NEGATIVE (NEGATIVE); Methadone NEGATIVE (NEGATIVE); Opiates NEGATIVE (NEGATIVE); Phencyclidine NEGATIVE (NEGATIVE); THC Cannibis POSITIVE (NEGATIVE)
[2020-08-01 01:05] LABS: Absolute Lymphocytes (CBC) 3.1 K/uL (0.7-4.9); Basophils % 1.3 % (0-1.3); Hematocrit 38.8 % (36.0-45.0); MPV 6.7 fL (7.6-11.3); RBC Red Blood Cell Count 3.72 M/uL (3.86-4.86)
[2020-08-01] MEDS ORDERED: MORPHINE 2 MG/ML SYR ONE (01:17)
[2020-08-01] MEDS ORDERED: ONDANSETRON 4 MG/2 ML VIAL ONE (01:17)
--- NOTE | 2020-08-01 01:46 | EDPHYS ---
Physician Documentation [facility] Name: Sylvia Cruz Age: 35 yrs Sex: Female : 1985 Arrival Date: 08/01/2020 Time: 00:02 Bed 17 Private MD: ED Physician Lakhwinder Blackmon HPI: 08/01 00:09 This 35 yrs old Female presents to ER via Unassigned with complaints of chest neftaly pain, hemoptysis and right side abd pain. 00:09 The patient has shortness of breath at rest, with light activity. Onset: The neftaly symptoms/episode began/occurred 3 day(s) ago. Duration: The symptoms are continuous, and are steadily getting worse. The patient's shortness of breath has no apparent modifying factors. The patient or guardian reports chest pain that is located primarily in the substernal area. The patient presents with abdominal pain in the right upper quadrant, right lower quadrant. The symptoms do not radiate. The pain does not radiate. Severity of symptoms: At their worst the symptoms were mild moderate in the emergency department the symptoms are unchanged. Historical: - PMHx: 00:24 Bipolar disorder; Depression; Hypertension; ll2 - Immunization history:: Adult Immunizations unknown. - Social history:: Smoking status: Patient reports the use of cigarette tobacco products, denies chronic smoking, but will smoke occasionally, Patient uses weed. - Family history:: not pertinent. ROS: 00:09 Constitutional: Negative for fever, chills, and weight loss, Eyes: Negative for injury, neftaly pain, redness, and discharge, ENT: Negative for injury, pain, and discharge, Neck: Negative for injury, pain, and swelling, Cardiovascular: Negative for chest pain, palpitations, and edema, Back: Negative for injury and pain, : Negative for injury, bleeding, discharge, and swelling, MS/Extremity: Negative for injury and deformity, Skin: Negative for injury, rash, and discoloration, Neuro: Negative for headache, weakness, numbness, tingling, and seizure, Psych: Negative for depression, anxiety, suicide ideation, homicidal ideation, and hallucinations, Allergy/Immunology: Negative for hives, rash, and allergies, Endocrine: Negative for neck swelling, polydipsia, polyuria, polyphagia, and marked weight changes, Hematologic/Lymphatic: Negative for swollen nodes, abnormal bleeding, and unusual bruising. 00:09 Respiratory: Positive for cough, bloody. 00:09 Abdomen/GI: Positive for abdominal pain, abdominal cramps, of the right upper quadrant and right lower quadrant. Exam: 00:09 Constitutional: This is a well developed, well nourished patient who is awake, alert, neftaly and in no acute distress. Head/Face: Normocephalic, atraumatic. Eyes: Pupils equal round and reactive to light, extra-ocular motions intact. Lids and lashes normal. Conjunctiva and sclera are non-icteric and not injected. Cornea within normal limits. Periorbital areas with no swelling, redness, or edema. ENT: Nares patent. No nasal discharge, no septal abnormalities noted. Tympanic membranes are normal and external auditory canals are clear. Oropharynx with no redness, swelling, or masses, exudates, or evidence of obstruction, uvula midline. Mucous membranes moist. Neck: Trachea midline, no thyromegaly or masses palpated, and no cervical lymphadenopathy. Supple, full range of motion without nuchal rigidity, or vertebral point tenderness. No Meningismus. Chest/axilla: Normal chest wall appearance and motion. Nontender with no deformity. No lesions are appreciated. Cardiovascular: Regular rate and rhythm with a normal S1 and S2. No gallops, murmurs, or rubs. Normal PMI, no JVD. No pulse deficits. Respiratory: Lungs have equal breath sounds bilaterally, clear to auscultation and percussion. No rales, rhonchi or wheezes noted. No increased work of breathing, no retractions or nasal flaring. Back: No spinal tenderness. No costovertebral tenderness. Full range of motion. Female : Normal external genitalia. Skin: Warm, dry with normal turgor. Normal color with no rashes, no lesions, and no evidence of cellulitis. MS/ Extremity: Pulses equal, no cyanosis. Neurovascular intact. Full, normal range of motion. Neuro: Awake and alert, GCS 15, oriented to person, place, time, and situation. Cranial nerves II-XII grossly intact. Motor strength 5/5 in all extremities. Sensory grossly intact. Cerebellar exam normal. Normal gait. Psych: Awake, alert, with orientation to person, place and time. Behavior, mood, and affect are within normal limits. 00:09 Abdomen/GI: Inspection: abdomen appears normal, Bowel sounds: normal, Palpation: moderate abdominal tenderness, in the right upper quadrant and right lower quadrant, Liver: no appreciated palpable abnormalities, Hernia: not appreciated. 01:18 ECG was reviewed by the Attending Physician. [facility] Vital Signs: 00:05 BP 140 / 107; Pulse 90; Resp 18; Temp 98; Pulse Ox 100% on R/A; Weight 61.23 kg; Height ll2 5 ft. 2 in. (157.48 cm); 00:05 BP 155 / 109; Pulse 90; Resp 22; Temp 98; Pulse Ox 100% on R/A; Weight 61.23 kg; Height ll2 5 ft. 2 in. (157.48 cm); 00:05 Body Mass Index 24.69 (61.23 kg, 157.48 cm) ll2 MDM: 00:02 Patient medically screened. [facility] 00:14 Differential diagnosis: Anxiety Reaction asthma, Bronchitis abnormal EKG, acute neftaly pericarditis, anxiety, cholecystitis, Cholelithiasis gastritis, pericarditis, pulmonary embolus, pneumonia, Pneumothorax pulmonary edema, Pulmonary Embolism Unstable Angina appendicitis, cholecystitis, Cholelithiasis, diverticulitis, Pyelonephritis, Ureterolithiasis, urinary tract infection. Antibiotic administration: Not indicated. HEART Score: Total Score = 0. The patient's Wells Deep Vein Thrombosis Score was calculated as follows: Total Score: 0. This patient was found to be at low risk for a deep vein thrombosis by using the Well's assessment criteria Total Score: 0-2 Pts- Low Risk. The patient's pulmonary embolism risk score was calculated as follows: Total Score: 0-2 points. This patient was found to be at low risk for a pulmonary embolism by using the Well's assessment criteria hemoptysis (1.0 Pts) Total Score: 0-2 points. This patient was found to be at low risk for a pulmonary embolism by using the Well's assessment criteria. ARACELI Risk Score: TOTAL SCORE = 0. Immunization status:. Data reviewed: vital signs, nurses notes, lab test result(s), EKG, radiologic studies, CT scan, plain films. 08/01 00:05 Order name: Basic Metabolic Panel; Complete Time: 01:06 [facility] 08/01 00:05 Order name: CBC with Diff; Complete Time: : [facility] 08/01 00:05 Order name: Hepatic Function; Complete Time: 01:06 [facility] 08/01 00:05 Order name: Lipase; Complete Time: 01:06 [facility] 08/01 00:05 Order name: UDS; Complete Time: 01:22 [facility] 08/01 00:05 Order name: CT Chest For PE Angio [facility] 08/01 00:05 Order name: CT Abd/Pelvis - IV Contrast Only [facility] 08/01 00:18 Order name: Chest Single View XRAY [facility] 08/01 00:35 Order name: Urine Dipstick--Ancillary (enter results); Complete Time: 01:06 mw 08/01 00:35 Order name: Urine --Ancillary (enter results); Complete Time: :06 2 08/01 00:48 Order name: CREATININE WHOLE BLOOD; Complete Time: 01:06 ED[facility] 08/01 00:05 Order name: IV Saline Lock; Complete Time: 00:43 [facility] 08/01 00:05 Order name: Labs collected and sent; Complete Time: 00:43 [facility] 08/01 00:05 Order name: Urine Dipstick-Ancillary (obtain specimen); Complete Time: 00:43 [facility] 08/01 00:05 Order name: Urine Test (obtain specimen); Complete Time: 00:44 [facility] 08/01 00:18 Order name: EKG; Complete Time: 00:18 [facility] 08/01 00:18 Order name: EKG - Nurse/Tech; Complete Time: 00:59 [facility] 08/01 00:40 Order name: Labs - recollect needed: cbc; Complete Time: 00:59 mw2 EC:18 Rate is 88 beats/min. Rhythm is regular. QRS [place] is Normal. WA interval is normal. QRS neftaly interval is normal. QT interval is normal. No Q waves. T waves are Normal. No ST changes noted. Clinical impression: Normal ECG and No evidence of ischemia. Interpreted by me. Reviewed by me. Administered Medications: 01:45 Drug: Norvasc 5 mg Route: PO; ll2 Disposition: 08/01/20 01:45 Discharged to Home. Impression: Dyspnea, Cough, Tobacco abuse counseling, Tobacco use, Abdominal tenderness, Bipolar disorder, Essential (primary) hypertension. - Condition is Stable. - Discharge Instructions: Abdominal Pain, Adult, Hypertension, Bipolar Disorder, Shortness of Breath, Steps to Quit Smoking, Smoking Hazards, Cool Mist Vaporizer, Shortness of Breath, Cpez-yi-Xuvq, Abdominal Pain, Adult, Vykt-tg-Veps, Hypertension, Fawv-is-Nuho, Cough, Adult, Khnz-zh-Gghv, Cough, Adult. - Prescriptions for Norvasc 5 mg Oral Tablet - take 1 tablet by ORAL route once daily; 20 tablet. Pepcid 20 mg Oral Tablet - take 1 tablet by ORAL route every 12 hours for 10 days; 20 tablet. Zithromax Z- Arian 250 mg Oral Tablet - take 1 tablet by ORAL route as directed for 5 days Day 1 - take two (2) tablets one time. Day 2, 3, 4 , 5 take one (1) tablet once daily.; 6 tablet. Albuterol Sulfate 90 mcg/actuation - inhale 1-2 puff by INHALATION route every 4-6 hours; 1 Inhaler. - Medication Reconciliation Form, Thank You Letter, Antibiotic Education, Prescription Opioid Use form. - Follow up: Private Physician; When: 2 - 3 days; Reason: Recheck today's complaints, Continuance of care, Re-evaluation by your physician. Follow up: Krishan Wells MD; When: 2 - 3 days; Reason: Recheck today's complaints, Re-evaluation by your physician. - Problem is new. - Symptoms have improved. Signatures: Dispatcher [employer] Lakhwinder Lamb MD MD cha Westbrook, MyKena mw2 Cherry Santana, RN RN ll2 Corrections: (The following items were deleted from the chart) 01:46 01:45 08/01/2020 01:45 Discharged to Home. Impression: Dyspnea; Cough; Tobacco abuse neftaly counseling; Tobacco use; Abdominal tenderness; Bipolar disorder. Condition is Stable. Forms are Medication Reconciliation Form, Thank You Letter, Antibiotic Education, Prescription Opioid Use. Follow up: Private Physician; When: 2 - 3 days; Reason: Recheck today's complaints, Continuance of care, Re-evaluation by your physician. Follow up: Krishan Wells; When: 2 - 3 days; Reason: Recheck today's complaints, Re-evaluation by your physician. Problem is new. Symptoms have improved. [facility] 02:00 00:16 CORONAVIRUS+MR.LAB.BRZ ordered. ED[facility] ED[facility] 02:00 01:23 Influenza Screen (A \T\ B)+BA.LAB.BRZ ordered. ED[facility] EDMS 02:07 01:46 08/01/2020 01:45 Discharged to Home. Impression: Dyspnea; Cough; Tobacco abuse ll2 counseling; Tobacco use; Abdominal tenderness; Bipolar disorder; Essential (primary) hypertension. Condition is Stable. Discharge Instructions: Abdominal Pain, Adult, Bipolar Disorder, Shortness of Breath, Steps to Quit Smoking, Smoking Hazards, Cool Mist Vaporizer, Shortness of Breath, Kpxp-tb-Pabw, Abdominal Pain, Adult, Foby-le-Updv, Cough, Adult, Keau-er-Bszv, Cough, Adult. Forms are Medication Reconciliation Form, Thank You Letter, Antibiotic Education, Prescription Opioid Use. Follow up: Private Physician; When: 2 - 3 days; Reason: Recheck today's complaints, Continuance of care, Re-evaluation by your physician. Follow up: Krishan Wells; When: 2 - 3 days; Reason: Recheck today's complaints, Re-evaluation by your physician. Problem is new. Symptoms have improved. neftaly
--- NOTE | 2020-08-01 01:46 | ER ---
Nurse's Notes [facility] Name: Sylvia Cruz Age: 35 yrs Sex: Female : 1985 Arrival Date: 08/01/2020 Time: 00:02 Bed 17 Private MD: Diagnosis: Dyspnea;Cough;Tobacco abuse counseling;Tobacco use;Abdominal tenderness;Bipolar disorder;Essential (primary) hypertension Presentation: 08/01 00:05 Acuity: BONITA 3 ll2 00:05 Chief complaint: EMS states: toned to bucees by patient for shortness of breath and ll2 cough that was not able to stop, pt states, "there was blood in my cough, and it just started today." Per EMS, "no witnessed blood.". Coronavirus screen: Client denies travel out of the [place] in the last 14 days. cough unrelated to allergies, difficulty breathing. Ebola Screen: Patient negative for fever greater than or equal to 101.5 degrees Fahrenheit, and additional compatible Ebola Virus Disease symptoms. Initial Sepsis Screen: Does the patient meet any 2 criteria? No. Patient's initial sepsis screen is negative. Does the patient have a suspected source of infection? No. Patient's initial sepsis screen is negative. Risk Assessment: Do you want to hurt yourself or someone else? Patient reports no desire to harm self or others. Onset of symptoms was July 31, 2020. 00:05 Method Of Arrival: EMS: [facility] ll2 Triage Assessment: 00:24 General: Appears uncomfortable, Behavior is cooperative, appropriate for age. Pain: ll2 Complains of pain in right lower quadrant and right upper quadrant. EENT: No signs and/or symptoms were reported regarding the EENT system. Neuro: Level of Consciousness is awake, alert, obeys commands, Oriented to person, place, time, situation. Cardiovascular: Patient's skin is warm and dry. Respiratory: Reports shortness of breath cough that is Onset: The symptoms/episode began/occurred today, the patient has moderate shortness of breath. GI: No signs and/or symptoms were reported involving the gastrointestinal system. : No signs and/or symptoms were reported regarding the genitourinary system. Derm: Skin is pink, warm \\T\\ dry. Musculoskeletal: Circulation, motion, and sensation intact. Range of motion: intact in all extremities. Historical: - PMHx: 00:24 Bipolar disorder; Depression; Hypertension; ll2 - Immunization history:: Adult Immunizations unknown. - Social history:: Smoking status: Patient reports the use of cigarette tobacco products, denies chronic smoking, but will smoke occasionally, Patient uses weed. - Family history:: not pertinent. Screenin:10 Abuse screen: Denies threats or abuse. Nutritional screening: No deficits noted. ll2 Tuberculosis screening: No symptoms or risk factors identified. Fall Risk None identified. Assessment: 00:26 Reassessment: see triage assessment. ll2 00:44 Reassessment: recollect from lab obtained, pt currently at CT. ll2 Vital Signs: 00:05 BP 140 / 107; Pulse 90; Resp 18; Temp 98; Pulse Ox 100% on R/A; Weight 61.23 kg; Height ll2 5 ft. 2 in. (157.48 cm); 00:05 BP 155 / 109; Pulse 90; Resp 22; Temp 98; Pulse Ox 100% on R/A; Weight 61.23 kg; Height ll2 5 ft. 2 in. (157.48 cm); 00:05 Body Mass Index 24.69 (61.23 kg, 157.48 cm) ll2 ED Course: 00:02 Patient arrived in ED. mw2 00:02 Lakhwinder Blackmon MD is Attending Physician. [facility] 00:10 Patient has correct armband on for positive identification. Bed in low position. Call ll2 light in reach. Side rails up X 1. Pulse ox on. NIBP on. 00:10 No provider procedures requiring assistance completed. Initial lab(s) drawn, by pa, ll2 sent to lab. Inserted saline lock: 20 gauge in right antecubital area, using aseptic technique. Blood collected. 00:16 Cherry Santana, RN is Primary Nurse. ll2 00:23 Triage completed. ll2 00:31 Balbina Kent pt's mother [phone]. mw2 01:05 CT Chest For PE Angio In Process Unspecified. EDMS 01:05 CT Abd/Pelvis - IV Contrast Only In Process Unspecified. EDMS 01:21 Chest Single View XRAY In Process Unspecified. EDMS 01:43 Krishan Wells MD is Referral Physician. neftaly Administered Medications: 01:45 Drug: Norvasc 5 mg Route: PO; ll2 Outcome: 01:45 Discharge ordered by MD. higginbotham 02:07 Patient left the ED. ll2 Signatures: Dispatcher [employer] Lakhwinder Lamb MD MD cha Westbrook, MyKena 2 Cherry Santana RN RN ll2 Corrections: (The following items were deleted from the chart) 00:26 00:25 Reassessment: ll2 ll2
[2020-08-01] MEDS ORDERED: AMLODIPINE 5 MG TAB ONE (02:10)
[2020-08-01 02:13] VITALS: BP 155/109; TEMP 98; O2SAT 100
[2020-08-01 02:48] LABS: SARS-COV-2 RT PCR NEGATIVE (NEGATIVE)
--- NOTE | 2020-08-01 08:48 | RAD REPORT ---
EXAM DESCRIPTION: Huy Single View08/01/2020 1:21 am CLINICAL HISTORY: Cough COMPARISON: 2017 FINDINGS: The lungs appear clear of acute infiltrate. The heart is normal size IMPRESSION: No acute abnormalities displayed
--- NOTE | 2020-08-02 08:20 | EKG ---
Test Date: 2020-08-01 Test Time: 01:15:15 Resistance Welder: PEDRO MEASUREMENT RESULTS: Intervals: Rate: 88 IA: 128 QRSD: 74 QT: 364 QTc: 440 Davis: P: 73 IA: 128 QRS: 43 T: 47 INTERPRETIVE STATEMENTS: Normal sinus rhythm Normal ECG Compared to ECG 06/16/2020 00:02:00 Sinus arrhythmia no longer present Electronically Signed On 08-02-20 08:17:51 WOUND CARE SPECIALIST by Rito Thompson
--- NOTE | 2020-08-02 09:53 | RAD REPORT ---
EXAM DESCRIPTION: CT - Abdomen Pelvis W Contrast - 08/01/2020 3:27 am CLINICAL HISTORY: The patient is 35 years old and is Female; ABD PAIN TECHNIQUE: Axial computed tomography images of the abdomen and pelvis with intravenous contrast. S agittal and coronal reformatted images were created and reviewed. This CT exam was performed using one or more of the following dose reduction techniques: automated exposure control, adjustment of t he mA and/or kV according to patient size, and/or use of iterative reconstruction technique. COMPARISON: No relevant prior studies available. FINDINGS: LUNG BASES: Unremarkable. No mass. No consolidation. ABDOMEN: LIVER: The liver is enlarged and diffusely fatty. GALLBLADDER AND BILE DUCTS: No calcified stones. No ductal dilation. PANCREAS: No ductal dilation. No mass. SPLEEN: Unremarkable. ADRENALS: Unremarkable. No mass. KIDNEYS AND URETERS: Unremarkable. The kidneys enhance symmetrically. No obstructing renal or ur eteral calculus is seen. No hydronephrosis or hydroureter. No perinephric fluid or stranding. STOMACH AND BOWEL: The stomach is minimally filled with fluid and food contents. The small bowel is normal in caliber. Stool is present throughout colon. There is no mucosal thickening or evidence of bowel obstruction. PELVIS: APPENDIX: The appendix is normal in caliber without surrounding inflammation. BLADDER: The bladder is moderately distended. REPRODUCTIVE: Unremarkable as visualized. ABDOMEN and PELVIS: INTRAPERITONEAL SPACE: Unremarkable. No free air. No significant fluid collection. BONES/JOINTS: No acute fracture. SOFT TISSUES: The soft tissues are normal. VASCULATURE: Unremarkable. No abdominal aortic aneurysm. LYMPH NODES: Unremarkable. No enlarged lymph nodes. IMPRESSION: No acute findings on this contrasted CT of the abdomen and pelvis to explain the patie nt's symptoms. Electronically signed by: Mellissa Schafer MD 08/01/2020 1:13 AM CURRICULUM DEVELOPMENT COORDINATOR Due to temporary technical issues with the PACS/Fluency reporting system, reports are being signed by the in house radiologist without review as a courtesy to ensure prompt reporting. The interpreting r adiologist is fully responsible for the content of the report.
--- NOTE | 2020-08-02 09:55 | RAD REPORT ---
EXAM DESCRIPTION: CT - Chest For Pe Angio - 08/01/2020 3:28 am CLINICAL HISTORY: The patient is 35 years old and is Female; Chest pain;Dyspnea TECHNIQUE: Axial computed tomographic angiography images of the chest with intravenous contrast. S agittal and coronal reformatted images were created and reviewed. This CT exam was performed using one or more of the following dose reduction techniques: automated exposure control, adjustment of t he mA and/or kV according to patient size, and/or use of iterative reconstruction technique. MIP reconstructed images were created and reviewed. COMPARISON: No relevant prior studies available. FINDINGS: PULMONARY ARTERIES: Unremarkable. No pulmonary embolism. AORTA: No acute findings. No thoracic aortic aneurysm. LUNGS: Unremarkable. No mass. No consolidation. PLEURAL SPACE: Unremarkable. No significant effusion. No pneumothorax. HEART: Unremarkable. No cardiomegaly. No significant pericardial effusion. No evidence of RV dysfunction. BONES/JOINTS: No acute fracture. No dislocation. SOFT TISSUES: Unremarkable. LYMPH NODES: Unremarkable. No enlarged lymph nodes. IMPRESSION: Normal chest CTA. No pulmonary embolism. Electronically signed by: Mellissa Schafer MD 08/01/2020 1:16 AM CAR WASH SUPERVISOR Due to temporary technical issues with the PACS/Fluency reporting system, reports are being signed by the in house radiologist without review as a courtesy to ensure prompt reporting. The interpreting r adiologist is fully responsible for the content of the report.
== END 2020-08-01 02:07 | disposition home or self-care (01) ==
LOC: ER
DX: R06.00 Dyspnea, unspecified (principal); R05 Cough; R10.819 Abdominal tenderness, unspecified site; F31.9 Bipolar disorder, unspecified; I10 Essential (primary) hypertension; Z72.0 Tobacco use; Z71.6 Tobacco abuse counseling
CPT/HCPCS: 0240U; 36415; 71045; 71275; 74177; 80048; 80076; 80307; 81003; 81025; 82565; 83690; 85025; 93005; 99284; J2270; J2405; Q9967

== ENCOUNTER 2020-09-30 10:18 | Emergency (ER) | payer SELFPAY ==
--- OUTSIDE RECORDS SUMMARY | 2020-09-30 10:20 | XMS REPORT | Continuity of Care Document ---
:1985 Author Organization [facility] t Address [address] [place] [address] Care Team Providers Name Role Phone Awilda Medeiros Attending Clinician [phone] Visit, Nurse Attending Clinician Unavailable Ann Marie Morgan Attending Clinician Problems This patient has no known problems. Allergies, Adverse Reactions, Alerts This patient has no known allergies or adverse reactions. Medications This patient has no known medications. Procedures This patient has no known procedures. Encounters Start End Encounter Admission Attending Care Care Encounter Source Date/Time Date/Time Type Type Clinicians Facility Department ID 2020-08-13 2020-08-13 Telephone SONNY Thomas [id number] 00:00:00 00:00:00 Awilda Mendez SHELLFISH CHECKER [id number] [facility] [id number] MATERNAL [id number] & CHILD 107 [facility] 2020-07-29 2020-07-29 Nurse VisitSONNY [id number] 14:20:34 14:34:34 Visit Cammie SHELLFISH CHECKER [id number] Nurse [facility] [id number] MATERNAL [id number] & CHILD 107 [facility] 2020-05-06 2020-05-06 Office SONNY Gomes [id number] 15:32:18 16:10:31 Visit Mendy Ann Marie SHELLFISH CHECKER [id number] [facility] [id number] MATERNAL [id number] & CHILD [address] [place] [address] Results This patient has no known results.
[2020-09-30 10:34] LABS: Urine Blood 3+ (Negative); Urine Glucose Negative (Negative); Urine Protein 1+ (Negative); Urine Specific Gravity >=1.030 (1.005-1.030)
[2020-09-30] MEDS ORDERED: BENZONATATE 100 MG CAP PO ONE (11:21)
[2020-09-30] MEDS ORDERED: IBUPROFEN 400 MG TAB ONE (11:22)
[2020-09-30 11:25] LABS: Urine Specific Gravity/Preg >1.030 (1.005-1.030)
--- NOTE | 2020-09-30 11:37 | RAD REPORT ---
EXAM DESCRIPTION: Huy Single View4 11:32 am CLINICAL HISTORY: Cough COMPARISON: July 2020 FINDINGS: The lungs appear clear of acute infiltrate. The heart is normal size IMPRESSION: No acute abnormalities displayed
[2020-09-30 12:06] LABS: SARS-COV-2 RT PCR NEGATIVE (NEGATIVE)
--- NOTE | 2020-09-30 13:12 | ER ---
[facility]'s Notes [facility] Name: Sylvia Cruz Age: 35 yrs Sex: Female : 1985 Arrival Date: 09/30/2020 Time: 10:20 Bed 19 Private MD: Diagnosis: Acute sinusitis;Acute upper respiratory infection, unspecified Presentation: 09/30 10:29 Chief complaint: Patient states: head pressure, left ear pain, productive cough, sv congestion, dyspnea, chest tightness, dyspnea x 3 days. +exposure to boyfriend who has COVID. Coronavirus screen: Client denies travel out of the [place] in the last 14 days. Client presents with at least one sign or symptom that may indicate coronavirus-19. Standard/surgical mask placed on the client. Provider contacted for isolation considerations. Ebola Screen: No symptoms or risks identified at this time. Risk Assessment: Do you want to hurt yourself or someone else? Patient reports no desire to harm self or others. Onset of symptoms was September 27, 2020. 10:29 Method Of Arrival: Ambulatory sv 10:29 Acuity: BONITA 2 sv 10:37 Initial Sepsis Screen: Does the patient meet any 2 criteria? No. Patient's initial ca1 sepsis screen is negative. Does the patient have a suspected source of infection? No. Patient's initial sepsis screen is negative. Historical: - Allergies: 10:32 No Known Allergies; sv - PMHx: 10:32 Bipolar disorder; Depression; Hypertension; sv - PSHx: 10:32 Sternum reconstructed; sv - Immunization history:: Client reports having NOT received the Covid vaccine. Flu vaccine is up to date. - Social history:: Smoking status: Patient reports the use of cigarette tobacco products, denies chronic smoking, but will smoke occasionally. Screenin:35 Abuse screen: Denies threats or abuse. Denies injuries from another. Nutritional ca1 screening: No deficits noted. Tuberculosis screening: No symptoms or risk factors identified. Fall Risk IV access (20 points). Assessment: 10:35 General: Appears in no apparent distress. comfortable, Behavior is calm, cooperative, ca1 appropriate for age. Pain: Complains of pain in top of head and forehead Pain does not radiate. Pain currently is 2 out of 10 on a pain scale. Pain began 2-3 days ago. Is continuous. Neuro: Level of Consciousness is awake, alert, obeys commands, Oriented to person, place, time, situation. Cardiovascular: Heart tones S1 S2 present Capillary refill < 3 seconds Patient's skin is warm and dry. Respiratory: Reports cough that is Airway is patent Respiratory effort is even, unlabored, Respiratory pattern is regular, symmetrical, Breath sounds are clear bilaterally. GI: Abdomen is flat, non-distended, Bowel sounds present X 4 quads. Abd is soft and non tender X 4 quads. Reports diarrhea. : No signs and/or symptoms were reported regarding the genitourinary system. EENT: No signs and/or symptoms were reported regarding the EENT system. Derm: Skin is intact, is healthy with good turgor, Skin is pink, warm \T\ dry. Musculoskeletal: Circulation, motion, and sensation intact. Capillary refill < 3 seconds. 11:37 Reassessment: Patient appears in no apparent distress at this time. Patient and/or ca1 family updated on plan of care and expected duration. Pain level reassessed. Patient is alert, oriented x 3, equal unlabored respirations, skin warm/dry/pink. 12:06 General: Appears in no apparent distress. comfortable, Behavior is calm, cooperative. vg1 Pain: Denies pain. Neuro: Level of Consciousness is awake, alert, obeys commands, Oriented to person, place, time, situation. Cardiovascular: Patient's skin is warm and dry. Respiratory: Airway is patent Respiratory effort is even, unlabored, Breath sounds are clear bilaterally. GI: Abdomen is flat, non-distended. : No signs and/or symptoms were reported regarding the genitourinary system. EENT: No signs and/or symptoms were reported regarding the EENT system. Derm: Skin is intact, is healthy with good turgor. Musculoskeletal: Circulation, motion, and sensation intact. Vital Signs: 10:29 BP 149 / 119; Pulse 89; Resp 20; Pulse Ox 95% ; Weight 58.97 kg; Height 5 ft. 2 in. sv (157.48 cm); Pain 3/10; 10:30 BP 132 / 103; Pulse 84; Resp 16 S; Pulse Ox 98% on R/A; ca1 11:52 BP 135 / 82; Pulse 76; Resp 16 S; Pulse Ox 100% on R/A; ca1 12:08 BP 138 / 87; Pulse 88; Resp 14; Pulse Ox 100% on R/A; vg1 13:23 BP 133 / 80; Pulse 85; Resp 16; Pulse Ox 100% ; vg1 10:29 Body Mass Index 23.78 (58.97 kg, 157.48 cm) ED Course: 10:20 Patient arrived in ED. rg4 10:23 Lahkwinder Bills PA is PHCP. cp 10:23 Jarad Fermin MD is Attending Physician. cp 10:31 Triage completed. sv 10:32 Janice Becerra, RN is Primary Nurse. ca1 10:32 Arm band placed on Patient placed in an exam room, on a stretcher. sv 10:35 Patient has correct armband on for positive identification. Bed in low position. Call 5 light in reach. Side rails up X 1. Warm blanket given. fire control system installer on. Pulse ox on. NIBP on. 10:35 Urine collected: clean catch specimen, tea colored. 5 10:36 Urine --Ancillary Sent. 5 10:36 Urine --Ancillary (enter results) Sent. 5 10:37 Urine Dipstick-Ancillary Sent. mh5 11:32 XRAY Chest (1 view) In Process Unspecified. EDMS 12:01 Primary Nurse role handed off by Janice Becerra RN vg1 12:01 Marisol Bhatt, SARAHI is Primary Nurse. vg1 13:24 No provider procedures requiring assistance completed. Patient did not have IV access vg1 during this emergency room visit. Administered Medications: 11:05 Drug: Ibuprofen 800 mg Route: PO; ca1 11:38 Follow up: Response: No adverse reaction; Pain is decreased ca1 11:06 Drug: Tessalon Perle (benzonatate) 200 mg Route: PO; ca1 11:38 Follow up: Response: No adverse reaction ca1 Outcome: 13:11 Discharge ordered by MD. cp 13:24 Discharged to home ambulatory. vg1 13:24 Condition: stable 13:24 Discharge instructions given to patient, Instructed on discharge instructions, follow up and referral plans. medication usage, Demonstrated understanding of instructions, follow-up care, medications, Prescriptions given X 3. 13:24 Patient left the ED. vg1 Signatures: Dispatcher [employer] EDMS Chuyita Garcia RN RN Lakhwinder Bills PA PA cp Garcia, Rubi rg4 Rhianna Fox 5 Janice Becerra, RN RN ca1 Marisol Bhatt RN RN vg1 Corrections: (The following items were deleted from the chart) : 12:12 General: Appears in no apparent distress. uncomfortable, Behavior is calm, vg1 cooperative, vg1 12:12 Pain: Complains of pain in epigastric area Pain currently is 10 out of 10 on a vg1 pain scale. vg1 : 12:12 Neuro: Level of Consciousness is awake, alert, obeys commands, Oriented to vg1 person, place, time, situation, 1 12:12 Cardiovascular: Patient's skin is warm and dry. vg1 [facility] : 12:12 Respiratory: Airway is patent Respiratory effort is even, unlabored, vg1 [facility] 12:12 GI: Abdomen is flat, Bowel sounds present X 4 quads. Abd is soft X 4 quads vg1 Abdomen is tender to palpation in epigastric area and right upper quadrant vg1 12: : No signs and/or symptoms were reported regarding the genitourinary system. vg1vg1 : 12:12 EENT: No signs and/or symptoms were reported regarding the EENT system. vg1 [facility] 12:12 Derm: Skin is intact, is healthy with good turgor, vg1 [facility] 12:12 Musculoskeletal: Circulation, motion, and sensation intact. vg1 12:17 BP 130 / 94; Pulse 66bpm; Resp 16bpm; Pulse Ox 98% RA; 1 1
--- NOTE | 2020-09-30 13:12 | EDPHYS ---
Physician Documentation [facility] Name: Sylvia Cruz Age: 35 yrs Sex: Female : 1985 Arrival Date: 09/30/2020 Time: 10:20 Bed 19 Private MD: ED Physician Jarad Fermin HPI: 09/30 10:40 This 35 yrs old Female presents to ER via Ambulatory with complaints of cp Headache, Cough, Congestion. 10:40 The patient complains of pain to the top of head and forehead. The patient describes cp the headache as aching, constant. 10:40 Onset: The symptoms/episode began/occurred 3 day(s) ago. cp 10:40 Associated signs and symptoms: Pertinent positives: cough, congestion, chest tightness, cp Pertinent negatives: altered mental status, dizziness, fever, neck stiffness, vomiting, weakness. Severity of symptoms: in the emergency department the pain a " 3" out of "10". 10:40 Patient reports boyfriend recently tested positive for COVID-19. cp Historical: - Allergies: 10:32 No Known Allergies; sv - PMHx: 10:32 Bipolar disorder; Depression; Hypertension; sv - PSHx: 10:32 Sternum reconstructed; sv - Immunization history:: Client reports having NOT received the Covid vaccine. Flu vaccine is up to date. - Social history:: Smoking status: Patient reports the use of cigarette tobacco products, denies chronic smoking, but will smoke occasionally. ROS: 10:45 Constitutional: Negative for body aches, chills, fever, poor PO intake. cp 10:45 Eyes: Negative for injury, pain, redness, and discharge. cp 10:45 ENT: Positive for ear pain, sinus congestion, Negative for drainage from ear(s), sore throat, difficulty swallowing, difficulty handling secretions. 10:45 Neck: Negative for pain with movement, pain at rest, stiffness. 10:45 Cardiovascular: Positive for chest pain, with cough, Negative for edema. 10:45 Respiratory: Positive for cough, with no reported sputum, shortness of breath, on exertion. Negative for wheezing. 10:45 Abdomen/GI: Negative for abdominal pain, vomiting, diarrhea, constipation. 10:45 Neuro: Positive for headache, Negative for altered mental status, weakness. 10:45 All other systems are negative. Exam: 10:50 Constitutional: The patient appears in no acute distress, alert, awake, cp non-diaphoretic, non-toxic, well developed, well nourished. 10:50 Head/Face: Normocephalic, atraumatic. cp 10:50 Eyes: Periorbital structures: appear normal, Conjunctiva: normal, no exudate, no injection, Sclera: no appreciated abnormality, Lids and lashes: appear normal, bilaterally. 10:50 ENT: External ear(s): are unremarkable, Ear canal(s): are normal, clear, TM's: bulging, is not appreciated, bilaterally, erythema, that is mild, on the left, Examination of the other ear shows no obvious abnormality, Nose: is normal, Mouth: Lips: moist, Oral mucosa: moist, Posterior pharynx: Airway: no evidence of obstruction, patent. 10:50 Neck: ROM/movement: is normal, is supple, without pain, no range of motions limitations, no meningismus, Lymph nodes: no appreciated lymphadenopathy. 10:50 Chest/axilla: Inspection: normal, Palpation: is normal, no crepitus, no tenderness. 10:50 Cardiovascular: Rate: normal, Rhythm: regular. 10:50 Respiratory: the patient does not display signs of respiratory distress, Respirations: normal, no use of accessory muscles, no retractions, labored breathing, is not present, Breath sounds: are clear throughout, no decreased breath sounds. 10:50 Abdomen/GI: Inspection: abdomen appears normal, Palpation: abdomen is soft and non-tender, in all quadrants. Vital Signs: 10:29 BP 149 / 119; Pulse 89; Resp 20; Pulse Ox 95% ; Weight 58.97 kg; Height 5 ft. 2 in. sv (157.48 cm); Pain 3/10; 10:30 BP 132 / 103; Pulse 84; Resp 16 S; Pulse Ox 98% on R/A; ca1 11:52 BP 135 / 82; Pulse 76; Resp 16 S; Pulse Ox 100% on R/A; ca1 12:08 BP 138 / 87; Pulse 88; Resp 14; Pulse Ox 100% on R/A; vg1 13:23 BP 133 / 80; Pulse 85; Resp 16; Pulse Ox 100% ; vg1 10:29 Body Mass Index 23.78 (58.97 kg, 157.48 cm) sv MDM: 10:36 Patient medically screened. cp 13:10 Data reviewed: vital signs, nurses notes, lab test result(s), radiologic studies, plain cp films. 13:10 Counseling: I had a detailed discussion with the patient and/or guardian regarding: the cp historical points, exam findings, and any diagnostic results supporting the discharge/admit diagnosis, lab results, radiology results, to return to the emergency department if symptoms worsen or persist or if there are any questions or concerns that arise at home. Response to treatment: the patient's symptoms have markedly improved after treatment. 09/30 10:34 Order name: Urine Dipstick-Ancillary; Complete Time: 13:03 EDMS 09/30 13:03 Interpretation: Normal except: UKET 1+; UBLD 3+; UPROT 1+. cp 09/30 10:34 Order name: Urine --Ancillary (enter results) em1 09/30 10:35 Order name: Urine --Ancillary EDMS 09/30 12:06 Order name: COVID-19/FLU A+B; Complete Time: 13:02 EDMS 09/30 11:09 Order name: XRAY Chest (1 view); Complete Time: 11:45 cp 09/30 11:45 Interpretation: Report reviewed. cp Administered Medications: 11:05 Drug: Ibuprofen 800 mg Route: PO; ca1 11:38 Follow up: Response: No adverse reaction; Pain is decreased ca1 11:06 Drug: Tessalon Perle (benzonatate) 200 mg Route: PO; ca1 11:38 Follow up: Response: No adverse reaction ca1 Disposition: 13:40 Co-signature as Attending Physician, Jarad Fermin MD I agree with the assessment and kdr plan of care. Disposition: 09/30/20 13:11 Discharged to Home. Impression: Acute sinusitis, Acute upper respiratory infection, unspecified. - Condition is Stable. - Discharge Instructions: Sinusitis, Adult, Upper Respiratory Infection, Adult. - Prescriptions for Augmentin 875- 125 mg Oral Tablet - take 1 tablet by ORAL route every 12 hours for 10 days; 20 tablet. Ibuprofen 800 mg Oral Tablet - take 1 tablet by ORAL route every 8 hours As needed take with food; 30 tablet. Tessalon Perles 100 mg Oral Capsule - take 2 capsule by ORAL route every 8 hours As needed; 30 capsule. - Medication Reconciliation Form, Thank You Letter, Antibiotic Education, Prescription Opioid Use, Work release form form. - Follow up: Private Physician; When: 2 - 3 days; Reason: Worsening of condition. - Problem is new. - Symptoms have improved. Signatures: Dispatcher [employer] EDMO Chuyita Garcia, RN RN Jarad Koehler MD MD kdr Lakhwinder Bills PA PA cp AcJanice dixon RN RN ca1 Marisol Bhatt RN RN vg1 Corrections: (The following items were deleted from the chart) 11:12 11:02 Chest Pa And Lat (2 Views)+RAD.RAD.BRZ ordered. EDMO EDMS 11:27 11:02 CORONAVIRUS+MR.LAB.BRZ ordered. EDMO EDMS 11:27 11:02 Influenza Screen (A \\T\\ B)+BA.LAB.BRZ ordered. EDMO EDMS 13:24 13:11 09/30/2020 13:11 Discharged to Home. Impression: Acute sinusitis; Acute upper vg1 respiratory infection, unspecified. Condition is Stable. Forms are Medication Reconciliation Form, Thank You Letter, Antibiotic Education, Prescription Opioid Use. Follow up: Private Physician; When: 2 - 3 days; Reason: Worsening of condition. Problem is new. Symptoms have improved. cp 14:29 10:50 ENT: External ear(s): are unremarkable, Ear canal(s): are normal, clear, TM's: cp dullness, bilaterally, Nose: is normal, Mouth: Lips: moist, Oral mucosa: moist, Posterior pharynx: Airway: no evidence of obstruction, patent, cp
[2020-10-01 02:00] VITALS: O2SAT 100
[2020-10-01 02:02] VITALS: BP 133/80
== END 2020-09-30 13:24 | disposition home or self-care (01) ==
LOC: ER 10:18
DX: J01.90 Acute sinusitis, unspecified (principal); J06.9 Acute upper respiratory infection, unspecified; I10 Essential (primary) hypertension; F17.210 Nicotine dependence, cigarettes, uncomplicated; Z20.822 Contact with and (suspected) exposure to COVID-19
CPT/HCPCS: 0240U; 71045; 81003; 81025; 99284

== ENCOUNTER 2021-01-02 02:45 | Emergency (ER) | payer SELFPAY ==
--- OUTSIDE RECORDS SUMMARY | 2021-01-02 02:54 | XMS REPORT | Continuity of Care Document ---
:1985 Author Organization [facility] t Address [address] [place] [address] Care Team Providers Name Role Phone Lucía BLUM, Keshia Attending Clinician Lily Alvarez Attending Clinician Anne Welch Attending Clinician Problems This patient has no known problems. Allergies, Adverse Reactions, Alerts This patient has no known allergies or adverse reactions. Medications This patient has no known medications. Procedures This patient has no known procedures. Encounters Start End Encounter Admission Attending Care Care Encounter Source Date/Time Date/Time Type Type Clinicians Facility Department ID 2020-11-01 2020-11-01 Emergency Lucía TRAUMA [id number] 22:05:00 22:06:00 , Keshia [place] [id number] 2020-11-01 2020-11-01 Emergency [place] [id number] 17:05:00 20:46:00 Ayana Martin [id number] [place] [id number] [place] [id number] 2020-11-01 2020-11-01 Office SONNY Ricks [id number] 13:58:16 14:28:58 Visit Anna Rodríguez [employer] OPER[employer] [id number] REGIONAL [id number] MATERNAL [id number] & CHILD [address] [place] [address] - [facility] Results This patient has no known results.
[2021-01-02 03:25] LABS: Absolute Lymphocytes (CBC) 2.6 K/uL (0.7-4.9); Basophils % 1.4 % (0-1.3); Hematocrit 40.7 % (36.0-45.0); Lymphocytes % 43.8 % (15.3-44.8); MPV 7.4 fL (7.6-11.3); RBC Red Blood Cell Count 3.85 M/uL (3.86-4.86)
[2021-01-02 03:34] LABS: Protime INR 0.98
[2021-01-02 03:46] LABS: ALT/SGPT 151 U/L (12-78); AST/SGOT 147 U/L (15-37); Albumin 3.9 g/dL (3.4-5.0); Alkaline Phosphatase 111 U/L (45-117); BUN Blood Urea Nitrogen 9 mg/dL (7-18); Bicarbonate 27 mmol/L (21-32); Bilirubin Direct 0.2 mg/dL (0-0.2); Bilirubin Total 0.6 mg/dL (0.2-1.0); Glucose Level 97 mg/dL (74-106); NT PRO-BNP 39 pg/mL (<125); Potassium 3.3 mmol/L (3.5-5.1); Protein, Total 7.6 g/dL (6.4-8.2); Sodium Level 139 mmol/L (136-145); Troponin (Emerg Dept Use Only) < 0.02 ng/mL (0.0-0.045)
[2021-01-02 03:55] LABS: Blood Morphology Comment NOTED (NOT SEEN); Macrocytosis 1+; Platelet Estimate ADEQ; White Blood Cell Scan OK (OK)
[2021-01-02] MEDS ORDERED: ONDANSETRON 4 MG/2 ML VIAL ONE (03:57)
[2021-01-02] MEDS ORDERED: MORPHINE 4 MG/ML SYR ONE (03:57)
[2021-01-02 04:16] LABS: Barbiturates NEGATIVE (NEGATIVE); Benzodiazepines NEGATIVE (NEGATIVE); Cocaine NEGATIVE (NEGATIVE); METHAMPHETAM NEGATIVE (NEGATIVE); Methadone NEGATIVE (NEGATIVE); Opiates NEGATIVE (NEGATIVE); Phencyclidine NEGATIVE (NEGATIVE); THC Cannibis POSITIVE (NEGATIVE)
--- NOTE | 2021-01-02 06:17 | ER ---
Nurse's Notes [facility] Name: Sylvia Cruz Age: 35 yrs Sex: Female : 1985 Arrival Date: 01/02/2021 Time: 02:47 Bed 17 Private MD: Diagnosis: Chest pain. Substance abuse. 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 Coronavirus screen: Client denies ak2 travel out of the [place] in the last 14 days. At this time, the client does not indicate any symptoms associated with coronavirus-19. Ebola Screen: Patient negative for fever greater than or equal to 101.5 degrees Fahrenheit, and additional compatible Ebola Virus Disease symptoms Patient denies exposure to infectious person. Patient denies travel to an Ebola-affected area in the 21 days before illness onset. No symptoms or risks identified at this time. Initial Sepsis Screen: Does the patient meet any 2 criteria? No. Patient's initial sepsis screen is negative. Does the patient have a suspected source of infection? No. Patient's initial sepsis screen is negative. Risk Assessment: Do you want to hurt yourself or someone else? Patient reports no desire to harm self or others. Onset of symptoms was January 01, 2021. 03:12 Method Of Arrival: Ambulatory ak2 03:12 Acuity: BONITA 3 ak2 Triage Assessment: 03:13 General: Appears in no apparent distress. Behavior is calm, cooperative. Pain: ak2 Complains of pain in chest. Cardiovascular: No deficits noted. Historical: - Allergies: 03:13 No Known Allergies; ak2 - PMHx: 03:13 Bipolar disorder; Hypertension; Depression; ak2 - Immunization history:: Adult Immunizations up to date. - Social history:: Smoking status: unknown. Screenin:14 Abuse screen: Denies threats or abuse. Denies injuries from another. Nutritional ak2 screening: No deficits noted. Tuberculosis screening: No symptoms or risk factors identified. Fall Risk None identified. Assessment: 03:15 Pain: Pain radiates to left arm Pain began 4 hours ago. Neuro: No deficits noted. ak2 Cardiovascular: No deficits noted. Respiratory: No deficits noted. 04:40 General: urine negative. ak2 05:26 Reassessment: Patient and/or family updated on plan of care and expected duration. Pain ak2 level reassessed. Vital Signs: 03:12 BP 136 / 78; Pulse 80; Resp 16; Temp 98.5; Pulse Ox 100% ; Weight 58.97 kg; Height 5 ak2 ft. 2 in. (157.48 cm); 05:26 BP 126 / 71; Pulse 66; Resp 16; Pulse Ox 100% on R/A; ak2 06:28 BP 123 / 68; Pulse 68; Resp 16; Pulse Ox 100% on R/A; ak2 03:12 Body Mass Index 23.78 (58.97 kg, 157.48 cm) ak2 ED Course: 02:47 Patient arrived in ED. ag3 03:06 XRAY Chest (1 view) In Process Unspecified. EDMS 03:12 Pete Patel is Primary Nurse. ak2 03:13 Triage completed. ak2 03:14 Patient has correct armband on for positive identification. 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 Pulse ak2 ox on. NIBP on. 03:14 No provider procedures requiring assistance completed. Inserted saline lock: 20 gauge ak2 in right antecubital area, using aseptic technique. Patient maintains SpO2 saturation greater than 95% on room air. 03:15 Munir Kumari MD is Attending Physician. pkl 03:15 Patient placed in the treatment room, on a stretcher. ak2 05:04 CT Abd/Pelvis - IV Contrast Only In Process Unspecified. EDMS 05:04 CT Chest For PE Angio In Process Unspecified. EDMS 06:28 IV discontinued. ak2 Administered Medications: 03:22 Drug: NS 0.9% 1000 ml Route: IV; Rate: 1000 ml; Site: right antecubital; ak2 03:36 Drug: morphine 4 mg Route: IVP; Site: right antecubital; ak2 03:36 Drug: Zofran (Ondansetron) 4 mg Route: IVP; Site: right antecubital; ak2 06:27 Drug: K-Dur (potassium chloride) 20 mEq Route: PO; ak2 Outcome: 06:16 Discharge ordered by . pkcarlos 06:27 Discharged to home ambulatory. ak2 06:27 Condition: good 06:27 Discharge instructions given to patient. 06:28 Patient left the ED. ak2 Signatures: Dispatcher [employer] EDMS Munir Kumari MD MD pkLupe Beard ag3 Pete Patel ak2
--- NOTE | 2021-01-02 06:17 | EDPHYS ---
Physician Documentation [facility] Name: Sylvia Cruz Age: 35 yrs Sex: Female : 1985 Arrival Date: 01/02/2021 Time: 02:47 Bed 17 Private MD: ED Physician Munir Kumari HPI: 01/02 03:20 This 35 yrs old Female presents to ER via Ambulatory with complaints of Chest pkl Pain. 03:20 The patient or guardian reports chest pain that is located primarily in the substernal pkl area. The pain radiates to the left arm. Associated signs and symptoms: The patient has no apparent associated signs or symptoms. The chest pain is described as a pressure. Patient admit to smoking THC. Historical: - Allergies: 03:13 No Known Allergies; ak2 - PMHx: 03:13 Bipolar disorder; Hypertension; Depression; ak2 - Immunization history:: Adult Immunizations up to date. - Social history:: Smoking status: unknown. ROS: 03:20 Eyes: Negative for injury, pain, redness, and discharge, ENT: Negative for injury, pkl pain, and discharge, Neck: Negative for injury, pain, and swelling. 03:20 Cardiovascular: Positive for chest pain. 03:20 Respiratory: Negative for cough, shortness of breath. 03:20 Abdomen/GI: Negative for abdominal pain, nausea, vomiting, and diarrhea. 03:20 Back: Negative for acute changes. 03:20 : Negative for urinary symptoms. 03:20 MS/extremity: Negative for acute changes. 03:20 Skin: Negative for rash. 03:20 Neuro: Negative for altered mental status, loss of consciousness. Exam: 03:20 Head/Face: Normocephalic, atraumatic. Eyes: Pupils equal round and reactive to light, pkl extra-ocular motions intact. Lids and lashes normal. Conjunctiva and sclera are non-icteric and not injected. Cornea within normal limits. Periorbital areas with no swelling, redness, or edema. ENT: Nares patent. No nasal discharge, no septal abnormalities noted. Tympanic membranes are normal and external auditory canals are clear. Oropharynx with no redness, swelling, or masses, exudates, or evidence of obstruction, uvula midline. Mucous membranes moist. Neck: Trachea midline, no thyromegaly or masses palpated, and no cervical lymphadenopathy. Supple, full range of motion without nuchal rigidity, or vertebral point tenderness. No Meningismus. Chest/axilla: Normal chest wall appearance and motion. Nontender with no deformity. No lesions are appreciated. Cardiovascular: Regular rate and rhythm with a normal S1 and S2. No gallops, murmurs, or rubs. Normal PMI, no JVD. No pulse deficits. Respiratory: Lungs have equal breath sounds bilaterally, clear to auscultation and percussion. No rales, rhonchi or wheezes noted. No increased work of breathing, no retractions or nasal flaring. Abdomen/GI: Soft, non-tender, with normal bowel sounds. No distension or tympany. No guarding or rebound. No evidence of tenderness throughout. Back: No spinal tenderness. No costovertebral tenderness. Full range of motion. Skin: Warm, dry with normal turgor. Normal color with no rashes, no lesions, and no evidence of cellulitis. MS/ Extremity: Pulses equal, no cyanosis. Neurovascular intact. Full, normal range of motion. Neuro: Awake and alert, GCS 15, oriented to person, place, time, and situation. Cranial nerves II-XII grossly intact. Motor strength 5/5 in all extremities. Sensory grossly intact. Cerebellar exam normal. Normal gait. Vital Signs: 03:12 BP 136 / 78; Pulse 80; Resp 16; Temp 98.5; Pulse Ox 100% ; Weight 58.97 kg; Height 5 ak2 ft. 2 in. (157.48 cm); 05:26 BP 126 / 71; Pulse 66; Resp 16; Pulse Ox 100% on R/A; ak2 06:28 BP 123 / 68; Pulse 68; Resp 16; Pulse Ox 100% on R/A; ak2 03:12 Body Mass Index 23.78 (58.97 kg, 157.48 cm) ak2 MDM: 03:15 Patient medically screened. pkl 06:13 Data reviewed: vital signs, nurses notes, lab test result(s), EKG, radiologic studies, pkl CT scan. 01/02 02:53 Order name: Basic Metabolic Panel; Complete Time: 04:17 em 01/02 02:53 Order name: CBC with Diff; Complete Time: 04:17 em 01/02 02:53 Order name: LFT's; Complete Time: 04:17 em 01/02 02:53 Order name: Magnesium; Complete Time: 04:17 em 01/02 02:53 Order name: NT PRO-BNP; Complete Time: 04:17 em 01/02 02:53 Order name: PT-INR; Complete Time: 04:17 em 01/02 02:53 Order name: Troponin (emerg Dept Use Only); Complete Time: 04:17 em 01/02 02:53 Order name: XRAY Chest (1 view) em 01/02 03:19 Order name: D-Dimer; Complete Time: 04:17 pkl 01/02 03:19 Order name: UDS; Complete Time: 04:17 pkl 01/02 03:34 Order name: CBC Smear Scan; Complete Time: 04:17 EDMS 01/02 04:19 Order name: CT Abd/Pelvis - IV Contrast Only pkl 01/02 04:19 Order name: CT Chest For PE Angio pkl 01/02 02:53 Order name: EKG; Complete Time: 02:53 em 01/02 02:53 Order name: Cardiac monitoring em 01/02 02:53 Order name: EKG - Nurse/Tech em 01/02 02:53 Order name: IV Saline Lock em 01/02 02:53 Order name: Labs collected and sent em 01/02 02:53 Order name: O2 Per Protocol em 01/02 02:53 Order name: O2 Sat Monitoring em Administered Medications: 03:22 Drug: NS 0.9% 1000 ml Route: IV; Rate: 1000 ml; Site: right antecubital; ak2 03:36 Drug: morphine 4 mg Route: IVP; Site: right antecubital; ak2 03:36 Drug: Zofran (Ondansetron) 4 mg Route: IVP; Site: right antecubital; ak2 06:27 Drug: K-Dur (potassium chloride) 20 mEq Route: PO; ak2 Disposition Summary: 01/02/21 06:16 Discharge Ordered Location: Home pkl Problem: new pkl Symptoms: have improved pkl Condition: Stable pkl Diagnosis - Chest pain. Substance abuse. Elevated liver functions pkl Followup: pkl - With: Private Physician - When: 2 - 3 days - Reason: Re-evaluation by your physician Forms: - Medication Reconciliation Form pkl - Thank You Letter pkl - Antibiotic Education pkl - Prescription Opioid Use pkl Signatures: Dispatcher [employer] Munir Quiñones MD MD pkl Khanh Faulkner, SARAHI RN Pete Sky
[2021-01-02] MEDS ORDERED: POTASSIUM CL SA 10 MEQ TAB PO ONE (06:39)
[2021-01-02 06:42] VITALS: O2SAT 100
[2021-01-02 06:43] VITALS: BP 123/68
[2021-01-02 06:47] VITALS: TEMP 98.5
--- NOTE | 2021-01-02 09:21 | RAD REPORT ---
EXAM DESCRIPTION: RAD - Chest Single View - 01/02/2021 3:06 am CLINICAL HISTORY: PAIN COMPARISON: Portable September 30 TECHNIQUE: AP portable chest image was obtained 01/02/2021 3:06 am . FINDINGS: Lungs are clear. Heart and vasculature are normal. No measurable pleural effusion and no p neumothorax. No acute bony abnormality seen. No acute aortic findings suspected. IMPRESSION: No acute cardiopulmonary process. No significant change from comparison study.
--- NOTE | 2021-01-02 13:46 | EKG ---
Test Date: 2021-01-02 Test Time: 02:56:34 Compounding Scaler: MEASUREMENT RESULTS: Intervals: Rate: 80 NH: 120 QRSD: 66 QT: 428 QTc: 493 [place]: P: 60 NH: 120 QRS: 35 T: 44 INTERPRETIVE STATEMENTS: Sinus rhythm with marked sinus arrhythmia Prolonged QT Abnormal ECG Compared to ECG 08/01/2020 01:15:15 Prolonged QT interval now present Electronically Signed On 01-02-21 13:45:27 CDT by Rito Thompson
--- NOTE | 2021-01-02 14:45 | RAD REPORT ---
EXAM DESCRIPTION: CT - Abdomen Pelvis W Contrast - 01/02/2021 6:40 am CLINICAL HISTORY: The patient is 35 years old and is Female; ABD PAIN TECHNIQUE: Axial computed tomographic angiography images of the chest with intravenous contrast. S agittal and coronal reformatted images were created and reviewed. This CT exam was performed using one or more of the following dose reduction techniques: automated exposure control, adjustment of t he mA and/or kV according to patient size, and/or use of iterative reconstruction technique. MIP re constructed images were created and reviewed. COMPARISON: No relevant prior studies available. FINDINGS: Pulmonary arteries: Unremarkable. No pulmonary embolism. Aorta: No acute findings. No thoracic aortic aneurysm. Lungs: Unremarkable. No mass. No consolidation. Pleural space: Unremarkable. No significant effusion. No pneumothorax. Heart: Unremarkable. No cardiomegaly. No significant pericardial effusion. No evidence of R V dysfunction. Bones/joints: No acute fracture. No dislocation. Soft tissues: Unremarkable. Lymph nodes: Unremarkable. No enlarged lymph nodes. * A single impression for all exams can be found at the end of this report EXAM DESCRIPTION: CT Abdomen and Pelvis With Intravenous Contrast CLINICAL HISTORY: The patient is 35 years old and is Female; ABD PAIN TECHNIQUE: Axial computed tomography images of the abdomen and pelvis with intravenous contrast. S agittal and coronal reformatted images were created and reviewed. This CT exam was performed using one or more of the following dose reduction techniques: automated exposure control, adjustment of t he mA and/or kV according to patient size, and/or use of iterative reconstruction technique. COMPARISON: No relevant prior studies available. FINDINGS: Lung bases: Unremarkable. No mass. No consolidation. ABDOMEN: Liver: Diffuse hepatic steatosis. Gallbladder and bile ducts: Unremarkable. No calcified stones. No ductal dilation. Pancreas: Unremarkable. No mass. No ductal dilation. Spleen: Unremarkable. No splenomegaly. Adrenals: Unremarkable. No mass. Kidneys and ureters: Simple cyst in the left kidney. ACR White Paper guidelines ([place], et al. JA CR 2018; 15(2):264-273) suggest no follow-up is necessary. No hydronephrosis. Stomach and bowel: Scattered colonic diverticula. No obstruction. No mucosal thickening. PELVIS: Appendix: The appendix is normal. Bladder: Unremarkable. No mass. Reproductive: Unremarkable as visualized. ABDOMEN and PELVIS: Intraperitoneal space: Unremarkable. No free air. No significant fluid collection. Bones/joints: No acute fracture. No dislocation. Soft tissues: Unremarkable. Vasculature: Unremarkable. No abdominal aortic aneurysm. Lymph nodes: Unremarkable. No enlarged lymph nodes. * A single impression for all exams can be found at the end of this report IMPRESSION: CT Angiography Chest With Intravenous Contrast: No acute finding. CT Abdomen and Pelvis With Intravenous Contrast: 1. No acute finding. 2. Diffuse hepatic steatosis. 3. Scattered colonic diverticula. 4. The appendix is normal. Electronically signed by: Freddy James MD 01/02/2021 5:28 AM CDT Due to temporary technical issues with the PACS/Fluency reporting system, reports are being signed by the in house radiologists without review as a courtesy to insure prompt reporting. The interpreting radiologist is fully responsible for the content of the report.
== END 2021-01-02 06:28 | disposition home or self-care (01) ==
LOC: ER 02:45
DX: F12.10 Cannabis abuse, uncomplicated (principal); R79.89 Other specified abnormal findings of blood chemistry; I10 Essential (primary) hypertension
CPT/HCPCS: 36415; 71045; 71275; 74177; 80048; 80076; 80307; 83735; 83880; 84484; 85025; 85379; 85610; 93005; 96374; 96375; 99285; J2405; Q9967

== ENCOUNTER 2021-03-28 23:53 | Emergency (ER) | payer SELFPAY ==
[2021-03-29] MEDS ORDERED: NA CHLORIDE 0.9% 1,000 ML ONE (00:22)
[2021-03-29 00:28] LABS: Urine Blood 2+ (Negative); Urine Glucose Negative (Negative); Urine Protein Negative (Negative); Urine pH 6.5 (5.0-7.0)
[2021-03-29 00:40] LABS: Absolute Lymphocytes (CBC) 4.1 K/uL (0.7-4.9); Basophils % 0.7 % (0-1.3); Lymphocytes % 53.7 % (15.3-44.8); MPV 6.9 fL (7.6-11.3); RBC Red Blood Cell Count 4.08 M/uL (3.86-4.86)
[2021-03-29] MEDS ORDERED: IBUPROFEN 400 MG TAB ONE (00:43)
[2021-03-29 00:46] LABS: Barbiturates NEGATIVE (NEGATIVE); Benzodiazepines NEGATIVE (NEGATIVE); Cocaine NEGATIVE (NEGATIVE); METHAMPHETAM NEGATIVE (NEGATIVE); Methadone NEGATIVE (NEGATIVE); Opiates NEGATIVE (NEGATIVE); Phencyclidine NEGATIVE (NEGATIVE); Protime INR 0.94; THC Cannibis NEGATIVE (NEGATIVE)
[2021-03-29 00:59] LABS: ALT/SGPT 249 U/L (12-78); Albumin 4.4 g/dL (3.4-5.0); Alkaline Phosphatase 136 U/L (45-117); BUN Blood Urea Nitrogen 11 mg/dL (7-18); Bicarbonate 24 mmol/L (21-32); Bilirubin Direct 0.2 mg/dL (0-0.2); Bilirubin Total 0.5 mg/dL (0.2-1.0); Glucose Level 122 mg/dL (74-106); Protein, Total 8.4 g/dL (6.4-8.2); Sodium Level 143 mmol/L (136-145); Troponin (Emerg Dept Use Only) < 0.02 ng/mL (0.0-0.045)
[2021-03-29 01:00] LABS: Potassium 3.1 mmol/L (3.5-5.1)
[2021-03-29 01:01] LABS: AST/SGOT 310 U/L (15-37)
[2021-03-29 01:06] LABS: Blood Morphology Comment NOTED (NOT SEEN); Macrocytosis 1+; Platelet Estimate ADEQ
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
--- NOTE | 2021-03-29 08:24 | RAD REPORT ---
EXAM DESCRIPTION: RAD - Chest Single View - 03/29/2021 12:26 am CLINICAL HISTORY: SOB COMPARISON: January 02, 2021 TECHNIQUE: AP portable chest image was obtained 03/29/2021 12:26 am . FINDINGS: Lungs are clear. Interstitial pattern matches comparison. Heart and vasculature are normal . No measurable pleural effusion and no pneumothorax. No acute bony abnormality seen. No acute aortic findings suspected. IMPRESSION: No acute cardiopulmonary process. No significant change from comparison study.
[2021-03-29 10:57] VITALS: O2SAT 100
[2021-03-29 10:59] VITALS: BP 136/100
--- NOTE | 2021-03-29 16:41 | EKG ---
Test Date: 2021-03-29 Test Time: 00:35:41 [place] Floor Layer: HELLEN MEASUREMENT RESULTS: Intervals: Rate: 98 GA: 128 QRSD: 70 QT: 370 QTc: 472 [place]: P: 62 GA: 128 QRS: 29 T: 30 INTERPRETIVE STATEMENTS: Normal sinus rhythm Cannot rule out Anterior infarct, age undetermined Abnormal ECG Compared to ECG 01/02/2021 02:56:34 Myocardial infarct finding now present Sinus arrhythmia no longer present Prolonged QT interval no longer present Electronically Signed On 03-29-21 16:38:59 CDT by Rito Thompson
== END 2021-03-29 01:31 | disposition left against medical advice (07) ==
LOC: ER 23:53
DX: R10.30 Lower abdominal pain, unspecified (principal); F10.129 Alcohol abuse with intoxication, unspecified; Z20.822 Contact with and (suspected) exposure to COVID-19
CPT/HCPCS: 36415; 71045; 80048; 80076; 80307; 80320; 80329; 81003; 81025; 84484; 85025; 85379; 85610; 85730; 93005; 99283; U0003

== ENCOUNTER 2021-06-08 09:45 | Emergency (ER) | payer SELFPAY ==
--- OUTSIDE RECORDS SUMMARY | 2021-06-08 09:49 | XMS REPORT | Continuity of Care Document ---
:1985 Author Organization [facility] t Address [address] [place] [address] Care Team Providers Name Role Phone ANNA AGUERO Primary Care Physician Unavailable Ann Marie GOMES Attending Clinician Unavailable Chung RIVERA Attending Clinician CHUNG Attending Clinician Unavailable Visit, Nurse Attending Clinician Unavailable Laci RIVERA R Attending Clinician Anne AGUERO Attending Clinician Unavailable William OJEDA C Attending Clinician Andrea THOMAS Attending Clinician Unavailable Lucía BLUM Attending Clinician Ayana Alvarez Attending Clinician Eliseo RIVERA, N Attending Clinician Doctor Unassigned, Name Attending Clinician Unavailable CHUNG Admitting Clinician Unavailable Payers Payer Name Policy Type Policy Number Effective Date Expiration Date S ource Problems Condition Condition Condition Status Onset Resolution Last Treating Co mments Source Name Details Category Date Date Treatment Clinician Date Pelvic Pelvic Disease Active Univers pain pain 2-09 ity of 00:00: [address] Branch Encounter Encounter Disease Active Uni vers for for 4-16 [place] prescript[place] Medical progestin- progestin- Br anch only only injected injected contracept contracept jacob jacob Encounter Encounter Disease Active Uni vers for for 4-16 [place]y of prescripti prescripti [place] 00 Medical progestin- progestin- Br anch only only injected injected contracept contracept jacbo jacob Irregular Irregular Disease Active Uni vers menses menses 01-31 ity of 00:00: [place] [facility] Well woman Well woman Disease Active U nivers exam exam 10-06 ity of 00:00: [place] [facility] Well woman Well woman Disease Active U nivers exam exam 10-06 ity of 00:00: [place] [facility] Mollusca Mollusca Disease Active Unive rs contagiosa contagiosa 10-06 it y of 00:00: [place] [facility] Tobacco Tobacco Disease Active Univers use use 10-06 ity of disorder disorder 00:00: [place] [facility] Contracept Contracept Disease Active U nivers jacob jacob 1-07 [place] management [place] [facility] Contracept Contracept Disease Active U nivers jacob jacob 07 [place] management [place] [facility] Allergies, Adverse Reactions, Alerts Allergy Allergy Status Severity Reaction(s) Onset Inactive Treating Comm ents Source Name Type Date Date Clinician NO KNOWN Drug Active Univers ALLERGIE Class ity of S [facility] Social History Social Habit Start Date Stop Date Quantity Comments Source Exposure to Unable to assess Univers ity of SARS-CoV-2 (event) [facility] History [facility] University o f Alcohol Frequency [facility] Branch History [facility] University o f Alcohol Std Drinks [facility] History [facility] University o f Alcohol Binge [facility] [place] History of tobacco Cigarette Smoker University of use [facility] Alcohol intake 2021-04-15 2021-04-15 0 /d University of 00:00:00 00:00:00 [facility] Tobacco use and 2012-10-03 2012-10-03 Never used Universit y of exposure 00:00:00 00:00:00 [facility] Cigarettes smoked 2012-10-03 2012-10-03 Univers ity of current (pack per 00:00:00 00:00:00 [facility] ) - Reported Branch Cigarette 2012-10-03 2012-10-03 University of pack-years 00:00:00 00:00:00 [facility] Tobacco Comment 2012-10-03 2012-10-03 states only Universi ty of 00:00:00 00:00:00 smokes on [facility] Alcohol Comment 2012-10-03 2012-10-03 socially Universit y of 00:00:00 00:00:00 [facility] Sex [birth year] Universit y of 00:00:00 00:00:00 [facility] Smoking Status Start Date Stop Date Source Current some day smoker 2012-10-03 00:00:00 [facility] of [facility] Medications Ordered Filled Start Stop Current Ordering Indication Dosage Frequency Signature Comments Components Source Medication Medication Date Date Medication? Clinician (SIG) Name Name acetaminoph 2020-07- No 1000mg 1,000 mg, Univers en 0-16 10-16 Oral, ity of (TYLENOL) 02:45: 01:45 ONCE[place] tablet [place] :[place] dose, On Medical 1,000 mg Fri Branch 04/15/21 at 2145, SAFIA ketorolac 2020-07 No 30mg 30 mg, Unive rs (TORADOL) 0-16 10-16 Slow IV ity of injection 01:15: 00:33 Push, [place] 30 mg 00 :00 ONCE, 1 Medical dose, On Branch Sun04/15/21 at 2014, SAFIA
Fa culty member approving Restricted medication : EMERGENCY ROOM, NaCl 0.9% 2020-07 No 1000mL at 999 Uni vers (NS) bolus 0-16 10-16 mL/hr, ity of infusion 01:15: 02:00 1,000 mL, [place] 1,000 mL 00 :00 IV Medical Infusion, Branch ONCE, 1 dose, On Sun04/15/21 at 2015, SAFIA medroxyPROG 2020-07- No [id number] 150mg Univers ESTERone 0-06 10-06 ity of (DEPO-PROVE 20:15: 19:08 [facility]) 00 :00 Medical injection Branch 150 mg medroxyPROG 2020-07- No [id number] 150mg 150 mg, Univers ESTERone 0-06 10-06 Intramuscu ity of (DEPO-PROVE 20:15: 19:08 lar, ONCE, [place] RA) 00 :00 1 dose, On Medical injection Wed Branch 150 mg 04/06/21 at 1515, Routine ondansetron 2020- No 4mg 4 mg, Slow Univers (ZOFRAN 11-02 IV Push, ity of (PF)) 00:00: 22:55 ONCE, 1 [place] injection 4 00 :00 dose, Mon Med ical mg 11/01/20 at Branch 1900, SAFIA morpHINE 2020- No 4mg 4 mg, Slow Un evaristo injection 4 11-02 IV Push, ity of mg 00:00: 22:55 ONCE, 1 [place] 00 :00 dose, Mon Medical 11/01/20 at Branch 1900, STAT NaCl 0.9% No 1000mL at 999 Uni vers (NS) bolus 11-01 mL/hr, ity of infusion 23:45: 01:30 1,000 mL, [place] 1,000 mL 00 :00 IV Medical Infusion, [place] ONCE, 1 dose, 11/01/20 at 1845, STAT Nitrofurant 2020- No [id number] 100mg Take 1 Univers oin&Nit. 5- 05-14 capsule by ity of Macrocryst 00:00: 04:59 mouth 2 [place] (MACROBID) 00 :00 (two) Medical 100 mg times Branch capsule daily for 10 days. Nitrofurant 2020- No [id number] 100mg Take 1 Univers oin&Nit. 5-03 05-14 capsule by ity of Macrocryst 00:00: 04:59 mouth 2 [place] (MACROBID) 00 :00 (two) Medical 100 mg times Branch capsule daily for 10 days. Nitrofurant 2020- No [id number] 100mg Take 1 Univers oin&Nit. 5-03 05-14 capsule by ity of Macrocryst 00:00: 04:59 mouth 2 [place] (MACROBID) 00 :00 (two) Medical 100 mg times Branch capsule daily for 10 days. Nitrofurant 2020- No [id number] 100mg Take 1 Univers oin&Nit. 5-03 05-14 capsule by ity of Macrocryst 00:00: 04:59 mouth 2 [place] (MACROBID) 00 :00 (two) Medical 100 mg times Branch capsule daily for 10 days. naproxen 2020-0 Yes [id number] 250mg Take 1 Un evaristo 250 mg 2-09 tablet by ity of tablet 00:00: mouth [place] 00 every 8 Medical (eight) Branch hours as needed for Pain (scale 4-6). Take 500mg followed by 250mg every 6-8 hours naproxen 2020-0 Yes [id number] 250mg Take 1 Un evaristo 250 mg 2-09 tablet by ity of tablet 00:00: mouth [place] 00 every 8 Medical (eight) Branch hours as needed for Pain (scale 4-6). Take 500mg followed by 250mg every 6-8 hours naproxen 2020-0 Yes [id number] 250mg Take 1 Un evaristo 250 mg 2-09 tablet by ity of tablet 00:00: mouth [place] 00 every 8 Medical (eight) Branch hours as needed for Pain (scale 4-6). Take 500mg followed by 250mg every 6-8 hours naproxen 2020-0 Yes [id number] 250mg Take 1 Un evaristo 250 mg 2-09 tablet by ity of tablet 00:00: mouth [place] 00 every 8 Medical (eight) Branch hours as needed for Pain (scale 4-6). Take 500mg followed by 250mg every 6-8 hours naproxen 2020-0 Yes [id number] 250mg Take 1 Un evaristo 250 mg 2-09 tablet by ity of tablet 00:00: mouth [place] 00 every 8 Medical (eight) Branch hours as needed for Pain (scale 4-6). Take 500mg followed by 250mg every 6-8 hours naproxen 2020-0 Yes [id number] 250mg Take 1 Un evaristo 250 mg 2-09 tablet by ity of tablet 00:00: mouth [place] 00 every 8 Medical (eight) Branch hours as needed for Pain (scale 4-6). Take 500mg followed by 250mg every 6-8 hours naproxen 2020-0 Yes [id number] 250mg Take 1 Un evaristo 250 mg 2-09 tablet by ity of tablet 00:00: mouth [place] 00 every 8 Medical (eight) Branch hours as needed for Pain (scale 4-6). Take 500mg followed by 250mg every 6-8 hours naproxen 2020-0 Yes [id number] 250mg Take 1 Un evaristo 250 mg 2-09 tablet by ity of tablet 00:00: mouth [place] 00 every 8 Medical (eight) Branch hours as needed for Pain (scale 4-6). Take 500mg followed by 250mg every 6-8 hours naproxen Yes [id number] 250mg Take 1 Un evaristo 250 mg 2-09 tablet by ity of tablet 00:00: mouth [place] 00 every 8 Medical (eight) Branch hours as needed for Pain (scale 4-6). Take 500mg followed by 250mg every 6-8 hours medroxyPROG 2019-07- No [id number] 150mg Univers ESTERone 07-06 ity of (DEPO-PROVE 22:00: 20:59 [place] RA) 00 :00 Medical injection Branch 150 mg medroxyPROG 2019-07- No [id number] 150mg 150 mg, Univers ESTERone 07-06 Intramuscu ity of (DEPO-PROVE 22:00: 20:59 [facility], [place] RA) 00 :00 [id number], Medical injection 4 doses, Branch 150 mg First dose on Kriss 05/06/20 at 1600, Last dose on [place] 01/13/21 at 1600, Routine medroxyPROG 2019-07- No [id number] 150mg Univers ESTERone 07-06 ity of (DEPO-PROVE 22:00: 20:59 [place] RA) 00 :00 Medical injection Branch 150 mg medroxyPROG 2019-07- No [id number] 150mg 150 mg, Univers ESTERone 07-06 Intramuscu ity of (DEPO-PROVE 22:00: 20:59 [facility] [place] RA) 00 :00 [id number], Medical injection 4 doses, Branch 150 mg First dose on Kriss 05/06/20 at 1600, Last dose on [place] 01/13/21 at 1600, Routine medroxyPROG 2019-07- No [id number] 150mg Univers ESTERone 07-06 ity of (DEPO-PROVE 22:00: 20:59 [place] RA) 00 :00 Medical injection Branch 150 mg medroxyPROG 2019-07- No [id number] 150mg 150 mg, Univers ESTERone 07-06 Intramuscu ity of (DEPO-PROVE 22:00: 20:59 lar, [place] RA) 00 :00 [id number], Medical injection 4 doses, Branch 150 mg First dose on Kriss 05/06/20 at 1600, Last dose on [place] 01/13/21 at 1600, Routine medroxyPROG 2019-07- No [id number] 150mg Univers ESTERone 1-05 10-07 ity of (DEPO-PROVE 22:00: 20:59 [place] RA) 00 :00 Medical injection Branch 150 mg medroxyPROG 2019-07- No [id number] 150mg Univers ESTERone 1-05 10-07 ity of (DEPO-PROVE 22:00: 20:59 [place] RA) 00 :00 Medical injection Branch 150 mg medroxyPROG 2019-07- No [id number] 150mg 150 mg, Univers ESTERone 1-05 10-07 Intramuscu ity of (DEPO-PROVE 22:00: 20:59 lar, [place] RA) 00 :00 [id number], Medical injection 4 doses, Branch 150 mg First dose on Kr[place] 05/06/20 at 1600, Last dose on [place] 01/13/21 at 1600, Routine medroxyPROG 2019-07- No [id number] 150mg Univers ESTERone 1-05 10-07 ity of (DEPO-PROVE 22:00: 20:59 [place] RA) 00 :00 Medical injection Branch 150 mg medroxyPROG 2019-07- No [id number] 150mg Univers ESTERone 1-05 10-07 ity of (DEPO-PROVE 22:00: 20:59 [place] RA) 00 :00 Medical injection Branch 150 mg medroxyPROG 2019-07- No [id number] 150mg Univers ESTERone 1-05 10-07 ity of (DEPO-PROVE 22:00: 20:59 [place] RA) 00 :00 Medical injection Branch 150 mg medroxyPROG 2019-2020- No [id number] 150mg Univers ESTERone 1-05 10-07 ity of (DEPO-PROVE 22:00: 20:59 [place] RA) 00 :00 Medical injection Branch 150 mg medroxyPROG 2019-2020- No [id number] 150mg Univers ESTERone 1-05 07-14 ity of (DEPO-PROVE 22:00: 19:45 [place] RA) 00 :00 Medical injection Branch 150 mg medroxyPROG 2019-07- No [id number] 150mg 150 mg, [facility] 07-06 07-14 Intramuscu ity of (DEPO-PROVE 22:00: 19:45 [place] RA) 00 :00 [id number], Medical injection 4 doses, Branch 150 mg First dose on Kriss 05/06/20 at 1600, Last dose on [place] 01/13/21 at 1600, Routine tramadol-ac 2019-07 Yes 1{tbl} Take 1 Un evaristo etaminophen 1-05 tablet by ity of 37.5-325 mg 21:47: mouth [place] per tablet 24 every 6 Medica l (six) Branch hours as needed for Pain. tramadol-ac 2019-07 Yes 1{tbl} Take 1 Un evaristo etaminophen 1-05 tablet by ity of 37.5-325 mg 21:47: mouth [place] per tablet 24 every 6 Medica l (six) Branch hours as needed for Pain. tramadol-ac 2019-07 Yes 1{tbl} Take 1 Un evaristo etaminophen 1-05 tablet by ity of 37.5-325 mg 21:47: mouth [place] per tablet 24 every 6 Medica l (six) Branch hours as needed for Pain. tramadol-ac 2019-07 Yes 1{tbl} Take 1 Un evaristo etaminophen 1-05 tablet by ity of 37.5-325 mg 21:47: mouth [place] per tablet 24 every 6 Medica l (six) Branch hours as needed for Pain. tramadol-ac 2019-07 Yes 1{tbl} Take 1 Un evaristo etaminophen 1-05 tablet by ity of 37.5-325 mg 21:47: mouth [place] per tablet 24 every 6 Medica l (six) Branch hours as needed for Pain. tramadol-ac 2019-07 Yes 1{tbl} Take 1 Un evaristo etaminophen 1-05 tablet by ity of 37.5-325 mg 21:47: mouth [place] per tablet 24 every 6 Medica l (six) Branch hours as needed for Pain. tramadol-ac 2019-07 Yes 1{tbl} Take 1 Un evaristo etaminophen 1-05 tablet by ity of 37.5-325 mg 21:47: mouth [place] per tablet 24 every 6 Medica l (six) Branch hours as needed for Pain. tramadol-ac 2019-07 Yes 1{tbl} Take 1 Un evaristo etaminophen 1-05 tablet by ity of 37.5-325 mg 21:47: mouth [place] per tablet 24 every 6 Medica l (six) Branch hours as needed for Pain. tramadol-ac 2019-07 Yes 1{tbl} Take 1 Un evaristo etaminophen 1-05 tablet by ity of 37.5-325 mg 21:47: mouth [place] per tablet 24 every 6 Medica l (six) Branch hours as needed for Pain. tramadol-ac 2019-07 Yes 1{tbl} Take 1 Un evaristo etaminophen 1-05 tablet by ity of 37.5-325 mg 21:47: mouth [place] per tablet 24 every 6 Medica l (six) Branch hours as needed for Pain. tramadol-ac 2019-07 Yes 1{tbl} Take 1 Un evaristo etaminophen 1-05 tablet by ity of 37.5-325 mg 15:47: mouth [place] per tablet 24 every 6 Medica l (six) Branch hours as needed for Pain. tramadol-ac 2019-07 Yes 1{tbl} Take 1 Un evaristo etaminophen 1-05 tablet by ity of 37.5-325 mg 15:47: mouth [place] per tablet 24 every 6 Medica l (six) Branch hours as needed for Pain. tramadol-ac 2018-07 Yes 1{tbl} Take 1 Un evaristo etaminophen 0-02 tablet by ity of 37.5-325 mg 13:32: mouth [place] per tablet 30 every 6 Medica l (six) Branch hours as needed for Pain. tramadol-ac 2018-07 Yes 1{tbl} Take 1 Un evaristo etaminophen 0-02 tablet by ity of 37.5-325 mg 13:32: mouth [place] per tablet 30 every 6 Medica l (six) Branch hours as needed for Pain. tramadol-ac 2018-07 Yes 1{tbl} Take 1 Un evaristo etaminophen 0-02 tablet by ity of 37.5-325 mg 13:32: mouth [place] per tablet 30 every 6 Medica l (six) Branch hours as needed for Pain. medroxyPROG Yes [id number] 150mg 150 mg, Univers ESTERone 4-16 Intramuscu ity o f (DEPO-PROVE 20:45: lar, [place] RA) 00 [id number], Medical injection First dose Bran ch 150 mg on Sun10/15/18 at 1545, Until Discontinu ed, Routine medroxyPROG Yes [id number] 150mg Univers ESTERone 4-16 ity of (DEPO-PROVE 20:45: [place] RA) 00 Medical injection Branch 150 mg medroxyPROG Yes [id number] 150mg 150 mg, Univers ESTERone 4-16 Intramuscu ity o f (DEPO-PROVE 20:45: lar, [place] RA) 00 [id number], Medical injection First dose Bran ch 150 mg on Sun10/15/18 at 1545, Until Discontinu ed, Routine medroxyPROG Yes [id number] 150mg Univers ESTERone 4-16 ity of (DEPO-PROVE 20:45: [place] RA) 00 Medical injection Branch 150 mg medroxyPROG Yes [id number] 150mg 150 mg, Univers ESTERone 4-16 Intramuscu ity o f (DEPO-PROVE 20:45: lar, [place] RA) 00 [id number], Medical injection First dose Bran ch 150 mg on Sun10/15/18 at 1545, Until Discontinu ed, Routine medroxyPROG Yes [id number] 150mg Univers ESTERone 4-16 ity of (DEPO-PROVE 20:45: [place] RA) 00 Medical injection Branch 150 mg medroxyPROG 2018- Yes [id number] 150mg Univers ESTERone 4-16 ity of (DEPO-PROVE 20:45: [place] RA) 00 Medical injection Branch 150 mg medroxyPROG 0 Yes [id number] 150mg Univers ESTERone 4-16 ity of (DEPO-PROVE 20:45: [place] RA) 00 Medical injection Branch 150 mg medroxyPROG 2018- Yes [id number] 150mg 150 mg, Univers ESTERone 4-16 Intramuscu ity o f (DEPO-PROVE 20:45: lar, [place] RA) 00 [id number], Medical injection First dose Bran ch 150 mg on Sun10/15/18 at 1545, Until Discontinu ed, Routine medroxyPROG Yes [id number] 150mg Univers ESTERone 4-16 ity of (DEPO-PROVE 20:45: [place] RA) 00 Medical injection Branch 150 mg medroxyPROG 2018- 2020- No [id number] 150mg Univers ESTERone 4-16 05-06 ity of (DEPO-PROVE 20:45: 21:59 [place] RA) 00 :19 Medical injection Branch 150 mg medroxyPROG 2018- 2020- No [id number] 150mg Univers ESTERone 4-16 05-06 ity of (DEPO-PROVE 20:45: 21:59 [place] RA) 00 :19 Medical injection Branch 150 mg Immunizations Ordered Filled Immunization Date Status Comments [facility] e Immunization Name Name Influenza Virus 2020-05-06 Completed Universit y of Vaccine Quad .5 mL 00:00:00 [place] Medical IM 6+ MO Branch Influenza Virus 2020-05-06 Completed Universit y of Vaccine [place] .5 mL 00:00:00 [place] [facility] IM 6+ MO Branch Influenza Virus 2020-05-06 Completed Universit y of Vaccine [place] .5 mL 00:00:00 [place] [facility] IM 6+ MO Branch Influenza Virus 2020-05-06 Completed Universit y of Vaccine [place] .5 mL 00:00:00 [place] [facility] IM 6+ MO Branch Influenza Virus 2020-05-06 Completed Universit y of Vaccine [place] .5 mL 00:00:00 [place] [facility] IM 6+ MO Branch Influenza Virus 2020-05-06 Completed Universit y of Vaccine [place] .5 mL 00:00:00 [place] [facility] IM 6+ MO Branch Influenza Virus 2020-05-06 Completed Universit y of Vaccine [place] .5 mL 00:00:00 [place] [facility] IM 6+ MO Branch Influenza Virus 2020-05-06 Completed Universit y of Vaccine [place] .5 mL 00:00:00 [place] [facility] IM 6+ MO Branch Influenza Virus 2020-05-06 Completed Universit y of Vaccine [place] .5 mL 00:00:00 [place] [facility] IM 6+ MO Branch Influenza Virus 2020-05-06 Completed Universit y of Vaccine [place] .5 mL 00:00:00 [place] [facility] IM 6+ MO Branch Influenza Virus 2020-05-06 Completed Universit y of Vaccine [place] .5 mL 00:00:00 [place] [facility] IM 6+ MO Branch Influenza Virus 2020-05-06 Completed Universit y of Vaccine [place] .5 mL 00:00:00 [place] [facility] IM 6+ MO Branch Tdap 2011-10-31 Completed University of 00:00:00 [facility] Branch Tdap 2011-10-31 Completed University of 00:00:00 [facility] Branch Tdap 2011-10-31 Completed University of 00:00:00 [place] [facility] TDAP 2011-10-31 Completed University of 00:00:00 [place] [facility] TDAP 2011-10-31 Completed University of 00:00:00 [place] [facility] TDAP 2011-10-31 Completed University of 00:00:00 [place] [facility] TDAP 2011-10-31 Completed University of 00:00:00 [place] [facility] TDAP 2011-10-31 Completed University of 00:00:00 [facility] Branch TDAP 2011-10-31 Completed University of 00:00:00 [facility] Branch TDAP 2011-10-31 Completed University of 00:00:00 [facility] Branch TDAP 2011-10-31 Completed University of 00:00:00 [facility] Branch TDAP 2011-10-31 Completed University of 00:00:00 [facility] Branch TDAP 2011-10-31 Completed University of 00:00:00 [facility] Branch TDAP 2011-10-31 Completed University of 00:00:00 [facility] TDAP 2011-10-31 Completed University of 00:00:00 [facility] TDAP 2011-10-31 Completed University of 00:00:00 [facility] Tdap 2011-10-31 Completed University of 00:00:00 [facility] Tdap 2011-10-31 Completed University of 00:00:00 [facility] Vital Signs Vital Name Observation Time Observation Value Comments Source Systolic blood 2021-04-16 03:00:00 139 mm[Hg] Univer sity of pressure [facility] Diastolic blood 2021-04-16 03:00:00 102 mm[Hg] Unive rsity of pressure [facility] Heart rate 2021-04-16 03:00:00 115 /min [facility] Respiratory rate 2021-04-16 03:00:00 10 /min Univ ersity of [facility] Oxygen saturation in 2021-04-16 03:00:00 100 /min [facility] Arterial blood by [facility] Pulse oximetry Branch Body weight 2021-04-15 23:56:00 61.236 kg [facility] BMI 2021-04-15 23:56:00 24.69 kg/m2 [facility] Systolic blood 2021-04-06 19:04:00 136 mm[Hg] Univer sity of pressure [place] [facility] Diastolic blood 2021-04-06 19:04:00 90 mm[Hg] Unive rsity of pressure [place] [facility] Heart rate 2021-04-06 19:04:00 75 /min Universi ty of [place] [facility] Body temperature 2021-04-06 19:04:00 37.22 Sushma Univ ersity of [place] [facility] Respiratory rate 2021-04-06 19:04:00 18 /min Univ ersity of [place] [facility] Body height 2021-04-06 19:04:00 157.5 cm Universi ty of [place] [facility] Body weight 2021-04-06 19:04:00 60.283 kg Universi ty of [place] [facility] BMI 2021-04-06 19:04:00 24.31 kg/m2 Universi ty of [place] [facility] Systolic blood 2021-01-12 19:44:00 120 mm[Hg] Univer sity of pressure [place] [facility] Diastolic blood 2021-01-12 19:44:00 82 mm[Hg] Unive rsity of pressure [place] [facility] Heart rate 2021-01-12 19:44:00 84 /min Universi ty of [place] [facility] Body temperature 2021-01-12 19:44:00 36.67 Sushma Univ ersity of [place] [facility] Respiratory rate 2021-01-12 19:44:00 16 /min Univ ersity of [place] [facility] Body height 2021-01-12 19:44:00 157.5 cm Universi ty of [place] [facility] Body weight 2021-01-12 19:44:00 60.011 kg Universi ty of [place] [facility] BMI 2021-01-12 19:44:00 24.20 kg/m2 Universi ty of [place] [facility] Systolic blood 2020-11-02 02:46:00 140 mm[Hg] Univer sity of pressure [place] [facility] Diastolic blood 2020-11-02 02:46:00 95 mm[Hg] Unive rsity of pressure [place] [facility] Heart rate 2020-11-02 02:46:00 73 /min Universi ty of [place] [facility] Body temperature 2020-11-02 02:46:00 36.11 Sushma Univ ersity of [place] [facility] Respiratory rate 2020-11-02 02:46:00 18 /min Univ ersity of [place] [facility] Body weight 2020-11-02 02:46:00 58.968 kg Universi ty of [place] [facility] BMI 2020-11-02 02:46:00 23.78 kg/m2 Universi ty of [place] [facility] Oxygen saturation in 2020-11-02 02:46:00 98 /min University of Arterial blood by [place] [employer] [facility] Pulse oximetry Branch Systolic blood 2020-11-02 02:46:00 140 mm[Hg] Univer sity of pressure [place] [facility] Diastolic blood 2020-11-02 02:46:00 95 mm[Hg] Unive rsity of pressure [place] [facility] Heart rate 2020-11-02 02:46:00 73 /min Universi ty of [place] [facility] Body temperature 2020-11-02 02:46:00 36.11 Sushma Univ ersity of [place] [facility] Respiratory rate 2020-11-02 02:46:00 18 /min Univ ersity of [place] [facility] Body weight 2020-11-02 02:46:00 58.968 kg Universi ty of [place] [facility] BMI 2020-11-02 02:46:00 23.78 kg/m2 Universi ty of [place] [facility] Oxygen saturation in 2020-11-02 02:46:00 98 /min University of Arterial blood by [place] Medi jem[facility] Pulse oximetry Branch Systolic blood 2020-11-02 00:00:00 146 mm[Hg] Univer sity of pressure [place] [facility] Diastolic blood 2020-11-02 00:00:00 98 mm[Hg] Unive rsity of pressure [place] [facility] Heart rate 2020-11-02 00:00:00 83 /min Universi ty of [place] [facility] Respiratory rate 2020-11-02 00:00:00 16 /min Univ ersity of [place] [facility] Oxygen saturation in 2020-11-02 00:00:00 100 /min University of Arterial blood by [place] [employer] [facility] Pulse oximetry Branch Body temperature 2020-11-01 22:06:00 36.67 Sushma Univ ersity of [place] [facility] Body height 2020-11-01 22:06:00 157.5 cm Universi ty of [place] [facility] Body weight 2020-11-01 22:06:00 58.968 kg Universi ty of [place] [facility] BMI 2020-11-01 22:06:00 23.78 kg/m2 Universi ty of [place] [facility] Systolic blood 2020-11-02 00:00:00 146 mm[Hg] Univer sity of pressure [place] [facility] Diastolic blood 2020-11-02 00:00:00 98 mm[Hg] Unive rsity of pressure [facility] Heart rate 2020-11-02 00:00:00 83 /min Universi ty of [facility] Respiratory rate 2020-11-02 00:00:00 16 /min Univ ersity of [facility] Oxygen saturation in 2020-11-02 00:00:00 100 /min University Arterial blood by [facility] Pulse oximetry Branch Body temperature 2020-11-01 22:06:00 36.67 Sushma Univ ersity of [facility] Body height 2020-11-01 22:06:00 157.5 cm Universi ty of [facility] Body weight 2020-11-01 22:06:00 58.968 kg Universi ty of [facility] BMI 2020-11-01 22:06:00 23.78 kg/m2 [facility] Systolic blood 2020-11-01 19:16:00 131 mm[Hg] Univer sity of pressure [facility] Diastolic blood 2020-11-01 19:16:00 88 mm[Hg] Unive rsity of pressure [facility] Heart rate 2020-11-01 19:16:00 84 /min Universi ty of [facility] Body temperature 2020-11-01 19:16:00 36.94 Sushma Univ ersity of [facility] Respiratory rate 2020-11-01 19:16:00 16 /min Univ ersity of [facility] Body height 2020-11-01 19:16:00 157.5 cm [facility] Body weight 2020-11-01 19:16:00 59.24 kg Universi ty of [facility] BMI 2020-11-01 19:16:00 23.89 kg/m2 Universi ty of [facility] Systolic blood 2020-11-01 19:16:00 131 mm[Hg] Univer sity of pressure [facility] Diastolic blood 2020-11-01 19:16:00 88 mm[Hg] Unive rsity of pressure [facility] Heart rate 2020-11-01 19:16:00 84 /min [facility] Body temperature 2020-11-01 19:16:00 36.94 Sushma [facility] Respiratory rate 2020-11-01 19:16:00 16 /min Univ [facility] Body height 2020-11-01 19:16:00 157.5 cm [facility] Body weight 2020-11-01 19:16:00 59.24 kg [facility] BMI 2020-11-01 19:16:00 23.89 kg/m2 [facility] Systolic blood 2020-10-21 20:04:00 134 mm[Hg] Univer sity of pressure [facility] Diastolic blood 2020-10-21 20:04:00 88 mm[Hg] Unive rsity of pressure [facility] Heart rate 2020-10-21 20:04:00 100 /min [facility] Body temperature 2020-10-21 20:04:00 37 Sushma Univ [facility] Respiratory rate 2020-10-21 20:04:00 16 /min Univ [facility] Body height 2020-10-21 20:04:00 157.5 cm [facility] Body weight 2020-10-21 20:04:00 59.138 kg [facility] BMI 2020-10-21 20:04:00 23.85 kg/m2 [facility] Systolic blood 2020-07-29 20:31:00 132 mm[Hg] Univer sity of pressure [facility] Diastolic blood 2020-07-29 20:31:00 90 mm[Hg] Unive rsity of pressure [facility] Heart rate 2020-07-29 20:31:00 93 /min [facility] Body temperature 2020-07-29 20:31:00 36.89 Sushma [facility] Respiratory rate 2020-07-29 20:31:00 16 /min Univ [facility] Body height 2020-07-29 20:31:00 157.5 cm [facility] Body weight 2020-07-29 20:31:00 60.51 kg [facility] BMI 2020-07-29 20:31:00 24.40 kg/m2 [facility] Systolic blood 2020-05-06 21:41:00 120 mm[Hg] Univer sity of pressure [facility] Diastolic blood 2020-05-06 21:41:00 79 mm[Hg] Unive rsity of pressure [facility] Heart rate 2020-05-06 21:41:00 93 /min [facility] Body temperature 2020-05-06 21:41:00 36.61 Sushma [facility] Respiratory rate 2020-05-06 21:41:00 16 /min Univ [facility] Body height 2020-05-06 21:41:00 157.5 cm [facility] Body weight 2020-05-06 21:41:00 58.196 kg [facility] BMI 2020-05-06 21:41:00 23.47 kg/m2 [facility] Systolic blood 2019-08-27 19:50:00 120 mm[Hg] Univer sity of pressure [facility] Diastolic blood 2019-08-27 19:50:00 82 mm[Hg] Unive rsity of pressure [facility] Heart rate 2019-08-27 19:50:00 71 /min [facility] Body temperature 2019-08-27 19:50:00 36.67 Sushma [facility] Respiratory rate 2019-08-27 19:50:00 16 /min Univ [facility] Body height 2019-08-27 19:50:00 157.5 cm [facility] Body weight 2019-08-27 19:50:00 55.877 kg [facility] BMI 2019-08-27 19:50:00 22.53 kg/m2 [facility] Systolic blood 2019-03-11 19:10:00 127 mm[Hg] Univer sity of pressure [facility] Diastolic blood 2019-03-11 19:10:00 86 mm[Hg] Unive rsity of pressure [facility] Heart rate 2019-03-11 19:09:00 84 /min [facility] Body temperature 2019-03-11 19:09:[address] [facility] Respiratory rate 2019-03-11 19:09:00 16 /min [facility] Body height 2019-03-11 19:09:00 160 cm [facility] Body weight 2019-03-11 19:09:00 56.359 kg [facility] BMI 2019-03-11 19:09:00 22.01 kg/m2 [facility] Procedures Procedure Date / Time Performing Clinician Source Performed XR CHEST 1 VW 2021-04-16 00:30:36 Brooklyn Rodriguez [facility] TROPONIN I 2021-04-16 00:30:00 Brooklyn Rodriguez [facility] COMP. METABOLIC PANEL 2021-04-16 00:30:00 Brooklyn Rodriguez [facility] ([id number]) [facility] ETHANOL 2021-04-16 00:30:00 Boroklyn Rodriguez [facility] URINE DRUG (IMMUNOASSAY) 2021-04-16 00:30:00 Brooklyn Rodriguez [facility] DRUG [facility] SCREEN CBC WITH DIFF 2021-04-16 00:30:00 Brooklyn Rodriguez [facility] D-DIMER 2021-04-16 00:30:00 Brooklyn Rodriguez [facility] URINALYSIS 2021-04-16 00:30:00 Brooklyn Rodriguez [facility] N-TERMINAL PRO-BNP 2021-04-16 00:30:00 Brooklyn Rodriguez [facility] COVID-19 (ID NOW RAPID 2021-04-16 00:30:00 Brooklyn Rodriguez [facility] TESTING) [facility] POCT TEST 2021-04-16 00:25:[address] [facility] COVID-19 (ID NOW RAPID 2020-11-01 23:54:00 Lily eKy [facility] TESTING) [facility] US OVARY TORSION 2020-11-01 23:24:10 Lily Key [facility] LIPASE 2020-11-01 22:55:00 Lily Key Ayana [facility] COMP. METABOLIC PANEL 2020-11-01 22:55:00 Lily Key [facility] ([id number]) [facility] CBC WITH DIFF 2020-11-01 22:55:00 Shahid, [facility] o [facility] URINALYSIS 2020-11-01 22:55:00 [facility] NOTICE OF PRIVACY 2020-11-01 21:52:38 Doctor Unassigned, No [facility] PRACTICES [facility] CONSENT/REFUSAL FOR 2020-11-01 21:50:14 Doctor Unassigned, No [facility] DIAGNOSIS AND TREATMENT [facility] POCT URINALYSIS 2020-11-01 19:20:00 Anna Aguero [facility] FLU VACC ([id number]), 6+ 2020-05-06 22:13:05 Mendy Gomes [facility] MONTHS, IM, QUAD [facility] ASSIGNMENT OF BENEFITS 2020-05-06 21:30:17 Doctor Unassigned, No [facility] POCT TEST 2019-03-11 19:13:00 Mendy Gomes [facility] ASSIGNMENT OF BENEFITS 2019-03-11 19:00:43 Doctor Unassigned, No [facility] Encounters Start End Encounter Admission Attending Care Care Encounter Source Date/Time Date/Time Type Type Clinicians Facility Department ID 2021-05-01 Emergency X [facility] ERT [id number] Univers 16:51:42 [facility] 2021-05-01 Emergency [facility] [id number] Univers 16:50:47 [facility] 2021-06-29 2021-06-29 Outpatient Anne GOMES [facility] [id number] Univers 13:00:00 13:00:00 MENDY [id number] [facility] 2021-06-29 2021-06-29 Outpatient Anne GOMES [facility] [id number] Univers 13:00:00 13:00:00 MENDY timo [facility] 2021-05-10 2021-05-10 Outpatient Anne GOMES [facility] [id number] Univers 13:30:00 13:30:00 MENDY [id number] [facility] 2021-05-10 2021-05-10 Outpatient R ELISEO [facility] [id number] Univers 13:30:00 13:30:[address] [facility] 2021-04-15 2021-04-15 Emergency Rodriguez, [facility] 1.2.840.114 [id number] Univers 19:01:00 23:04:00 [facility]3] [id number] i ty [facility] 4.2.7.2.686 [place] [facility] [id number] [address] 2021-04-15 2021-04-15 Emergency X CHUNG, [facility] ERT [id number] Univers 19:01:00 23:04:00 [place] [facility] 2021-04-06 2021-04-06 Nurse Visit, Cammie Nurse [facility] 1.2 .840.114 [id number] Univers 13:20:16 13:45:56 Visit Anna Aguero [place] [id number] ity [facility] [id number] Anatoliy as MATERNAL [id number] Med ical & CHILD [address] [place] [address] 2021-04-06 2021-04-06 Outpatient R [facility] [id number] Univers 13:30:00 13:30:00 [id number] [facility] 2021-04-06 2021-04-06 [facility] [id number] Univers 13:30:00 13:30:00 ANNA adrian o f [facility] 2021-01-13 2021-01-13 Outpatient R [facility] [id number] Univers 13:30:00 13:30:00 [id number] [facility] 2021-01-13 2021-01-13 Outpatient R [facility] [id number] Univers 13:30:00 13:30:[address] 2021-01-12 2021-01-12 Nurse Visit, Meghnap Nurse [facility] 1.2 .840.114 [id number] Univers 12:58:10 13:14:44 Visit Awilda Thomas [place] 350.1.13. [address] [facility] [id number] [place]at[place]y as MATERNAL [id number] [facility] ical & CHILD [address] [place] [address] 2021-01-12 2021-01-12 Outpatient R [facility] [id number] Univers 13:00:00 13:00:00 [id number] ity [facility] 2021-01-12 2021-01-12 Outpatient R [facility] [id number] Univers 13:00:00 13:00:00 ity [facility] 2021-01-12 2021-01-12 Outpatient R EBERKAITLYNN [facility] [id number] Univers 13:00:00 13:00:00 AWILDA morsey o f [facility] 2020-11-01 2020-11-01 Emergency Schoenstein TRAUMA 1.2.840.114 [id number] Univers 22:05:00 22:06:00 , [facility] [id number] [place] [id number] [facility] [address] [place] 2020-11-01 2020-11-01 Emergency Schoenstein TRAUMA 1.2.840.114 [id number] 22:05:00 22:06:00 , [facility] [id number] 4.2.7.2.686 [id number] 2020-11-01 2020-11-01 Emergency [facility] 1.2.840.114 [id number] Univers 17:05:00 20:46:00 Ayana Comanche 350.1.13.10 i ty [place] [id number] [facility] [address] 2020-11-01 2020-11-01 Emergency [facility], [facility] 1.2.840.114 [id number] 17:05:00 20:46:00 Ayana Comanche 350.1.13.10 [place] 4.2.7.2.686 [place] [id number] [facility] 2020-11-01 2020-11-01 Office Laci [facility] 1.2.840.114 [id number] Univers 13:58:16 14:28:58 Visit Anna R [place] 350.1.13.10 ity [facility] [id number] [place]at[place]y as MATERNAL [id number] [facility] & CHILD [address] [place] [address] 2020-11-01 2020-11-01 Office Laci [facility] 1.2.840.114 [id number] 13:58:16 14:28:58 Visit Anna Rodríguez [place] 350.1.13.10 REGIONAL 4.2.7.2.686 MATERNAL [id number] & [address] 2020-11-01 2020-11-01 [facility] [id number] Univers 14:00:00 14:00:00 CONRADBILL ity o [facility] 2020-11-01 2020-11-01 Outpatient [facility] [id number] Univers 07:45:00 07:45:00 CONRADBILL [id number] ity o [facility] 2020-10-21 2020-10-21 Nurse Visit, [facility] Nurse [facility] 1.2 .840.114 [id number] Univers 14:54:52 15:08:41 Visit Anna [facility]ero [place] [facility]13.10 [facility] 4.2.7.2.686 [place] as MATERNAL [id number] [facility] & CHILD [address] [place] [address] 2020-10-21 2020-10-21 Outpatient R [facility] [id number] Univers 14:30:00 14:30:00 [id number] ity [facility] 2020-10-21 2020-10-21 Outpatient R [facility] [id number] Univers 14:30:00 14:30:[address] 2020-08-13 2020-08-13 [facility]phone [facility] 1.2.840.114 [id number] Univers 00:00:00 00:00:00 Awilda C [place] 350.1.13.10 ity of [place]IONAL 4.2.7.2.686 [place] as MATERNAL [id number] [address] 2020-08-10 2020-08-10 Outpatient R WILLIAM [facility] [id number] Univers 13:45:00 13:45:00 AWILDA ity o f [facility] 2020-07-29 2020-07-29 [facility] 1.2 .840.114 [id number] Univers 14:20:34 14:34:34 Visit Anna Aguero R [place] 350.1.13.[address] [facility] 4.2.7.2.686 [place] as MATERNAL [id number] [address] 2020-07-29 2020-07-29 Outpatient R [facility] [id number] Univers 14:30:00 14:30:00 [id number] ity [facility] 2020-07-29 2020-07-29 Outpatient R [facility] [id number] Univers 14:30:00 14:30:00 ity [facility] 2020-05-06 2020-05-06 Office [facility] [id number] Univers 15:32:18 16:10:31 Visit Mendy Jesus [place] 350.1.13.[address] [facility] 4.2.7.2.686 [place] as MATERNAL [id number] [address] 2020-05-06 2020-05-06 [facility] [id number] Univers 15:30:00 15:30:[id number] [facility] 2020-05-06 2020-05-06 [facility] [id number] Univers 15:30:00 15:30:00 MENDY [facility] 2020-05-06 2020-05-06 Orders Doctor NAIK 1.2.840.114 [id number] Univers 00:00:00 00:00:00 Only Unassigned, BERKLEY 350.1.13.10 [facility] 4.2.7.2.686 [place]y as [id number] [address] 2020-02-11 2020-02-11 Outpatient R [facility] [id number] Univers 13:30:00 13:30:00 [id number] ity [facility] 2020-02-11 2020-02-11 Outpatient R [facility] [id number] Univers 13:30:00 13:30:00 ity [facility] 2019-11-19 2019-11-19 [facility] 1.2 .840.114 [id number] Univers 13:54:25 14:01:32 Visit Anna Aguero [place] 350.1.13.[address]7.2.686 [place]y as MATERNAL [id number] [facility] ical & CHILD [address] [place] [address] 2019-11-19 2019-11-19 Outpatient R [facility] [id number] Univers 13:30:00 13:30:00 ity [facility] 2019-11-19 2019-11-19 Outpatient R [facility] [id number] Univers 13:30:00 13:30:00 ity [facility] 2019-08-27 2019-08-27 Nurse Visit, Cammie Nurse [facility] 1.2 .840.114 [id number] Univers 13:46:00 14:04:52 Visit Anna Aguero [place] 350.1.13.[address]7.2[address]686 [place]y as MATERNAL [id number] [facility] & CHILD [address] [place] [address] 2019-08-27 2019-08-27 Outpatient R [facility] [id number] Univers 13:30:00 13:30:00 [id number] ity [facility] 2019-08-27 2019-08-27 [facility] [id number] Univers 13:30:00 13:30:00 ANNA ward f [facility] 2019-03-11 2019-03-11 Office [facility] [id number] Univers 14:03:33 14:50:27 Visit Mendy N [place] 350..13.[address] [facility] 4.2.7.2.686 Anatoliy as MATERNAL [id number] Med ical & CHILD 107 [facility] 2019-03-11 2019-03-11 Orders Doctor HEENA 1.2.840.114 [id number] Univers 00:00:00 00:00:00 Only Unassigned, BERKLEY 350.1.13.10 ity of [place] [facility] 4.2.7.2.686 Anat[place]y as [id number] [address] Results Test Description Test Time Test Comments Results Result Comments Source D-DIMER 2021-04-16 01:20:46 Test Item Value Reference Range Interpretation Comme nts D-DIMER (test code = <0.27 See_Comment [Autom ated message] The [id number]) system which ge nerated this result tra nsmitted reference range : <0.41 ?g/mL (FEU). Th e reference range was not used to interpr et this result as normal/abnormal . CHRIS (test code = CHRIS) This test may be used in conjunction with a clinical pretest probability (PTP) assessment model to exclude venous thromboembolism (VTE) in patients suspected of deep venous thrombosis (DVT) and pulmonary embolism (PE) A D-Dimer value less than 0.50 ?g/ml (FEU) has a negative predicative value of 96 to 100% (95% CI)and 97 to 100% (95% CI) as an aid in the diagnosis of deep vein thrombosis (DVT) and pulmonary embolism when there is low or moderate pretest probability of PE or DVT. D-Dimer values are expressed in initial fibrinogen equivalent units (FEU)" The assay results should be used with other information, including the clinical context, in forming a diagnosis. Lab Interpretation Normal (test code = 88680-6) [facility] [id number] 01:03:13 Test Item Value Reference Interpretation Comments Range TROPONIN I (test 0.009 ng/mL See_Comment [Automated code = 6239849012) message] The system which generated this result transmitted reference range : <=0.034. The reference range was not used to interpret this result as normal/abnormal . CHRIS (test code = Reference (Normal) CHRIS) Range (defined by the 99th percentile reference limit): <= 0.034 ng/mL Note: Cardiac troponin begins to rise 3-4 hours after the onset of ischemia. Repeat in 4-6 hours if the sample was drawn within 3-4 hours of the onset of the symptom and found normal. Diagnosis of myocardial injury is made with acute changes in cTn concentrations with at least one serial sample above the 99th percentile upper reference limit (URL), taken together with the patient's clinical presentation. Biotin has been reported to cause a negative bias, interpret results relative to patient's use of biotin. Lab Interpretation Normal (test code = 56168-6) [facility] Center[facility]OL2021-10-16 01:02:27 Test Item Value Reference Range Interpretation Comments ALCOHOL (test code = 302 mg/dL 1540671442) CHRIS (test code = CHRIS) <10 Yonaonjz17-430 Toxic>100 Depression of BUSINESS TEACHER>400 Fatalities Reported [facility]AL [id number] 01:00:37 Test Item Value Reference Range Interpretation Comments NT-proBNP (test code 32 pg/mL See_Comment [Autom ated = [id number]) message] The system which generated this result transmitted reference range : <=125. The reference range was not used to interpret this result as normal/abnormal . CHRIS (test code = CHRIS) Biotin has been reported to cause a negative bias, interpret results relative to patient's use of biotin. Lab Interpretation Normal (test code = 54164-4) [facility] Center[facility] METABOLIC PANEL (60003)2021-04-16 00:53:12 Test Item Value Reference Range Interpretation Comments NA (test code = 142 mmol/L 135-145 2480660306) K (test code = 4.5 mmol/L 3.5-5.0 0923739119) CL (test code = 111 mmol/L 98-108 H 7771096039) CO2 TOTAL (test code = 20 mmol/L 23-31 L 6992647642) AGAP (test code = 2-16 8722605020) BUN (test code = 9 mg/dL 7-23 9236696419) GLUCOSE (test code = 106 mg/dL 70-110 6973075756) CREATININE (test code = 0.59 mg/dL 0.50-1.04 9744927352) TOTAL BILI (test code = 0.7 mg/dL 0.1-1.6 7446223683) CALCIUM (test code = 9.2 mg/dL 8.6-10.6 1405936025) T PROTEIN (test code = 8.1 g/dL 6.3-8.2 5442156086) ALBUMIN (test code = 4.7 g/dL 3.5-5.0 3715871688) ALK PHOS (test code = 112 U/L 34-122 4215369859) ALTv (test code = 237 U/L 5-35 H 1742-6) AST(SGOT) (test code = 325 U/L 13-40 H 6457264707) eGFR (test code = mL/min/1.73m2 5042461147) CHRIS (test code = CHRIS) Association of Glomerular Filtration Rate (GFR) and Staging of Kidney Disease* + --+ --+ ------+| GFR (mL/min/1.73 m2) ?| With Kidney Damage ?| ?Without Kidney Damage+ --------+ --------+ +| ?>90 ?| ?Stage one ?| ? Normal ?+ ---+ ---+ -------+| ?60-89 ?| ?Stage two ?| ? Decreased GFR ? + --+ --+ ------+| ?30-59 ?| ?Stage three ?| ? Stage three ? + --+ --+ ------+| ?15-29 ?| ?Stage four ? | ? Stage four ?+ ---+ ---+ -------+| ?<15 (or dialysis) ? ?| ?Stage five ? | ? Stage five ?+ ---+ ---+ -------+ *Each stage assumes the associated GFR level has been in effect for at least three months. ?Stages 1 to 5, with or without kidney disease, indicate chronic kidney disease. Notes: Determination of stages one and two (with eGFR >59mL/min/1.73 m2) requires estimation of kidney damage for at least three months as defined by structural or functional abnormalities of the kidney, manifested by either:Pathological abnormalities or Markers of kidney damage (including abnormalities in the composition of the blood or urine or abnormalities in imaging tests). Lab Interpretation Abnormal (test code = 65476-2) [facility] WITH [id number] 00:51:35 Test Item Value Reference Range Interpretation Comments WBC (test code = See_Comment [Automated 6690-2) message] The sy stem which generated this result transmitted reference range : 4.30 - 11.10 10*3/?L. The reference range was not used to interpret this result as normal/abnormal . RBC (test code = See_Comment [Automated 789-8) message] The sy stem which generated this result transmitted reference range : 3.93 - 5.25 10*6/?L. The reference range was not used to interpret this result as normal/abnormal . HGB (test code = 15.0 g/dL 11.6-15.0 718-7) HCT (test code = 43.0 % 35.7-45.2 4544-3) MCV (test code = 103.9 fL 80.6-95.5 H 787-2) MCH (test code = 36.2 pg 25.9-32.8 H 785-6) MCHC (test code = 34.9 g/dL 31.6-35.1 786-4) RDW-SD (test code = 49.0 fL 39.0-49.9 45541-0) RDW-CV (test code = 13.0 % 12.0-15.5 788-0) PLT (test code = See_Comment [Automated 777-3) message] The sy stem which generated this result transmitted reference range : 166 - 358 10*3/ ?L. The reference r stoney was not used to interpret this result as normal/abnormal . MPV (test code = 8.8 fL 9.5-12.9 L 39510-8) NRBC/100 WBC (test See_Comment [Automat ed code = 3458473003) message] The system which generated this result transmitted reference range : 0.0 - 10.0 /100 WBCs. The refer ence range was not u sed to interpret th is result as normal/abnormal . NRBC x10^3 (test code <0.01 See_Comment [Auto mated = [id number]) message] The s ystem which generated this result transmitted reference range : 10*3/?L. The reference range was not used to interpret this result as normal/abnormal . GRAN MAT (NEUT) % 48.0 % (test code = 770-8) IMM GRAN % (test code 0.30 % = 7447074654) LYMPH % (test code = 43.0 % 736-9) MONO % (test code = 6.5 % 5905-5) EOS % (test code = 1.4 % 713-8) BASO % (test code = 0.8 % 706-2) GRAN MAT x10^3(ANC) 4.14 10*3/uL 1.88-7.09 (test code = 9197849440) IMM GRAN x10^3 (test 0.03 10*3/uL 0.00-0.06 code = 0828044309) LYMPH x10^3 (test code 3.71 10*3/uL 1.32-3.29 H = 731-0) MONO x10^3 (test code 0.56 10*3/uL 0.33-0.92 = 742-7) EOS x10^3 (test code = 0.12 10*3/uL 0.03-0.39 711-2) BASO x10^3 (test code 0.07 10*3/uL 0.01-0.07 = 704-7) Lab Interpretation Abnormal (test code = 25498-4) [facility] [id number] 00:25:00 Test Item Value Reference Range Interpretation Comments POCT PREG (test code = 1605) negative On board controls acceptable with C present Line (test code = 3574) Lab Interpretation (test code = Normal 44818-6) [facility]OVID[facility] (ID NOW RAPID TESTING)2020-11-02 00:16:01 Test Item Value Reference Range Interpretation Comments SARS-CoV-2 Rapid ID NOW Not Detected Not Detected (test code = 18219-6) CHRIS (test code = CHRIS) ID NOW COVID-19 Assay is an isothermal nucleic acid amplification test intended for the qualitative detection of nucleic acid from SARS-CoV-2 viral RNA in nasopharyngeal (CROP RESEARCH SCIENTIST) specimens. It is used under Emergency Use Authorization (EUA) by FDA. The limit of detection (LOD) of the assay is 125 Genome Equivalents/mL. A positive result is indicative of the presence of SARS-CoV-2 RNA. ?Clinical correlation with patient history and other diagnostic information is necessary to determine patient infection status. A negative (Not Detected) result does not preclude SARS-CoV-2 infection. In patients with clinical symptoms and other tests that are consistent with SARS-CoV-2 infection, negative results should be treated as presumptive negative and a new specimen should be tested with alternative PCR molecular test. Invalid: Please collect a new specimen for repeat patient testing if clinically indicated. Lab Interpretation Normal (test code = 63060-4) [facility] WITH [id number] 23:54:55 Test Item Value Reference Range Interpretation Comments WBC (test code = See_Comment [Automated 6290-2) message] The sy stem which generated this result transmitted reference range : 4.30 - 11.10 10*3/?L. The reference range was not used to interpret this result as normal/abnormal . RBC (test code = See_Comment [Automated 789-8) message] The sy stem which generated this result transmitted reference range : 3.93 - 5.25 10*6/?L. The reference range was not used to interpret this result as normal/abnormal . HGB (test code = 15.3 g/dL 11.6-15.0 H 718-7) HCT (test code = 44.2 % 35.7-45.2 4544-3) MCV (test code = 103.0 fL 80.6-95.5 H 787-2) MCH (test code = 35.7 pg 25.9-32.8 H 785-6) MCHC (test code = 34.6 g/dL 31.6-35.1 786-4) RDW-SD (test code = 46.5 fL 39.0-49.9 89984-9) RDW-CV (test code = 12.4 % 12.0-15.5 788-0) PLT (test code = See_Comment [Automated 777-3) message] The sy stem which generated this result transmitted reference range : 166 - 358 10*3/ ?L. The reference r stoney was not used to interpret this result as normal/abnormal . MPV (test code = 9.2 fL 9.5-12.9 L 18723-1) NRBC/100 WBC (test See_Comment [Automat ed code = 6983313243) message] The system which generated this result transmitted reference range : 0.0 - 10.0 /100 WBCs. The refer ence range was not u sed to interpret th is result as normal/abnormal . NRBC x10^3 (test code <0.01 See_Comment [Auto mated = 9361697907) message] The s ystem which generated this result transmitted reference range : 10*3/?L. The reference range was not used to interpret this result as normal/abnormal . GRAN MAT (NEUT) % 30.4 % (test code = 770-8) IMM GRAN % (test code 0.10 % = 4099030984) LYMPH % (test code = 57.2 % 736-9) MONO % (test code = 10.7 % 5905-5) EOS % (test code = 0.8 % 713-8) BASO % (test code = 0.8 % 706-2) GRAN MAT x10^3(ANC) 2.16 10*3/uL 1.88-7.09 (test code = 1981581726) IMM GRAN x10^3 (test <0.03 0.00-0.06 code = 2247358270) LYMPH x10^3 (test code 4.08 10*3/uL 1.32-3.29 H = 731-0) MONO x10^3 (test code 0.76 10*3/uL 0.33-0.92 = 742-7) EOS x10^3 (test code = 0.06 10*3/uL 0.03-0.39 711-2) BASO x10^3 (test code 0.06 10*3/uL 0.01-0.07 = 704-7) Lab Interpretation Abnormal (test code = 52149-2) [facility] OVARY [id number] 23:47:45 1. ?Low suspicion for ovarian torsion based on sonographic findings. 2. 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 Preliminary Report Dictated by Resident: John Dang ?MD Elaine., have reviewed this study and agree withthe above report.EXAM: US OVARY TORSION HISTORY: 35 years-old Female; RLQ LMP = uncertain TECHNIQUE: Transabdominal and transvaginal ultrasound imaging and colorDoppler evaluation of the pelvis was performed. Spectral Doppler evaluationof the ovaries was performed. Scheduling Manager images were obtained for therecord. COMPARISON: None FINDINGS: Uterus: The uterus is normal insize and measures 6.7 x 2.4 x 3.9 cm. The uterinecontour is heart-shaped and 2 endometria are suspect ed. The myometriumappears homogenous. The endometria measure approximately 0.4 cm and 0.4 cm.The cervix is unremarkable. Right Adnexa:Ovary: The right ovary measures 3.1 x 2.2 x 2.3 cm. Small physiologicfollicles are present. Normal arterial and venous waveforms are visualizedat the right ovary. Left A dnexa:Ovary: The left ovary measures 2.9 x 1.8 x 1.7 cm. The left ovary isunremarkable. Normal arterial and venous waveforms are visualized at theleft ovary. Cul-de-sac: No free fluid is present.. [facility], Radiant Results Inft User - 11/01/2020 6:48 PM CDTEXAM: US OVARY TORSIONHISTORY: 35 years-old Female; RLQ LMP = uncertainTECHNIQUE: Transabdominal and transvaginal ultrasound imaging and colorDopplerevaluation of the pelvis was performed. Spectral Doppler evaluationof the ovaries was performed. Scheduling Manager images were obtained for therecord. COMPARISON: NoneFINDINGS:Uterus: The uterus is normalin size and measures 6.7 x 2.4 x 3.9 cm. The uterinecontour is heart-shaped and 2 endometria are suspected. The myometriumappears homogenous. The endometria measure approximately 0.4 cm and 0.4 cm.The cervix is unremarkable.Right Adnexa:Ovary: The right ovary measures 3.1 x 2.2 x 2.3 cm. Small physiologicfollicles are present. Normal arterial and venous waveforms are visualizedat the right ovary.LeftAdnexa:Ovary: The left ovary measures 2.9 x 1.8 x 1.7 cm. The left ovary isunremarkable. Normal arterial and venous waveforms are visualized at theleft ovary.Cul-de-sac: No free fluid is present..IMPRESSION1. Low suspicion for ovarian torsion based on sonographic findings.2. 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.Preliminary Report Dictated by Resident: John Salter MD., have reviewed this study and agree withthe above report.[facility] CenterURINALYSIS2021-05-03 23:32:10 Test Item Value Reference Range Interpretation Comments APPEARANCE (test code = Clear Clear 7299027037) COLOR (test code = Straw Yellow A 4287638760) PH (test code = 4.8-8.0 8316492788) SP GRAVITY (test code = 1.003-1.030 L 7902242548) GLU U QUAL (test code = Normal Normal 3777651122) BLOOD (test code = 2+ Negative A 5342961944) KETONES (test code = Negative Negative 6333833057) PROTEIN (test code = Negative Negative 2887-8) UROBILIN (test code = Normal Normal 4213353764) BILIRUBIN (test code = Negative Negative 7206359888) NITRITE (test code = Negative Negative 7998504906) LEUK JOVI (test code = Negative Negative 1807025443) RBC/HPF (test code = <1 See_Comment [Autom ated message] 6105264198) The system [employer] generated this result transmitted ref erence range: 0 - 3 HP F. The reference range was not used to int erpret this result as normal/abnormal . WBC/HPF (test code = <1 See_Comment [Autom ated message] 8903680537) The system [employer] generated this result transmitted ref erence range: 0 - 5 HP F. The reference range was not used to int erpret this result as normal/abnormal . BACTERIA (test code = Negative Negative 9732681143) AMORPHOUS (test code = Rare Rare HPF 4904255618) SQ EPITH (test code = <1 HPF 4146965663) Lab Interpretation (test Abnormal code = 59446-1) [facility] CenterCOMP. METABOLIC PANEL (74491)2020-11-01 23:28:11 Test Item Value Reference Range Interpretation Comments NA (test code = 142 mmol/L 135-145 0553067579) K (test code = 3.2 mmol/L 3.5-5.0 L 8458572504) CL (test code = 106 mmol/L 98-108 2869730443) CO2 TOTAL (test code = 25 mmol/L 23-31 2812180317) AGAP (test code = 2-16 1004681979) BUN (test code = 8 mg/dL 7-23 1579513318) GLUCOSE (test code = 117 mg/dL 70-110 H 1621220743) CREATININE (test code = 0.59 mg/dL 0.50-1.04 1804628765) TOTAL BILI (test code = 0.5 mg/dL 0.1-1.0 9268029412) CALCIUM (test code = 9.2 mg/dL 8.6-10.6 8733127802) T PROTEIN (test code = 7.8 g/dL 6.3-8.2 6171026514) ALBUMIN (test code = 4.6 g/dL 3.5-5.0 7975326322) ALK PHOS (test code = 118 U/L 34-122 9438160168) ALTv (test code = 151 U/L 5-35 H 1742-6) AST(SGOT) (test code = 132 U/L 13-40 H 3974216080) eGFR (test code = mL/min/1.73m2 6662609388) CHRIS (test code = CHRIS) Association of Glomerular Filtration Rate (GFR) and Staging of Kidney Disease* + --+ --+ ------+| GFR (mL/min/1.73 m2) ?| With Kidney Damage ?| ?Without Kidney Damage+ --------+ --------+ +| ?>90 ?| ?Stage one ?| ? Normal ?+ ---+ ---+ -------+| ?60-89 ?| ?Stage two ?| ? Decreased GFR ? + --+ --+ ------+| ?30-59 ?| ?Stage three ?| ? Stage three ? + --+ --+ ------+| ?15-29 ?| ?Stage four ? | ? Stage four ?+ ---+ ---+ -------+| ?<15 (or dialysis) ? ?| ?Stage five ? | ? Stage five ?+ ---+ ---+ -------+ *Each stage assumes the associated GFR level has been in effect for at least three months. ?Stages 1 to 5, with or without kidney disease, indicate chronic kidney disease. Notes: Determination of stages one and two (with eGFR >59mL/min/1.73 m2) requires estimation of kidney damage for at least three months as defined by structural or functional abnormalities of the kidney, manifested by either:Pathological abnormalities or Markers of kidney damage (including abnormalities in the composition of the blood or urine or abnormalities in imaging tests). Lab Interpretation Abnormal (test code = 74740-0) [facility] CenterLIPASE2021-05-03 23:27:51 Test Item Value Reference Range Interpretation Comments LIPASE (test code = 3204288811) 90 U/L 0-220 Lab Interpretation (test code = Normal 85625-7) [facility] CenterPOOR URINALYSIS W SPECIFIC [id number] 19:23:00 Test Item Value Reference Range Interpretation Comments POCT U SP GRAV (test code = . 1.005-1.025 3255) POCT PH U (test code = 3254) 6 mg/dl 5-8 POCT U LEUK EST (test code = trace Negative - Negative 3263) POCT U NIT (test code = 3262) positive Negative - Negative POCT U PROT (test code = 3259) trace+30 Negative - Negative POCT U GLU (test code = 3256) neg Negative - Negative POCT U KETONE (test code = 3258) trace Negative - Negative POCT U UROBILI (test code = . 0.2-1 3260) POCT U BILI (test code = 3261) . Negative - Negative POCT U BLD (test code = 3257) Negative - Negative POCT U COLOR (test code = 3266) . POCT U APPEAR (test code = 3267) . Lab Interpretation (test code = Abnormal 71427-7) [facility] URINALYSIS W SPECIFIC [id number] 19:23:00 Test Item Value Reference Range Interpretation Comments POCT U SP GRAV (test code = . 1.005-1.025 3255) POCT PH U (test code = 3254) 6 mg/dl 5-8 POCT U LEUK EST (test code = trace Negative - Negative 3263) POCT U NIT (test code = 3262) positive Negative - Negative POCT U PROT (test code = 3259) trace+30 Negative - Negative POCT U GLU (test code = 3256) neg Negative - Negative POCT U KETONE (test code = 3258) trace Negative - Negative POCT U UROBILI (test code = . 0.2-1 3260) POCT U BILI (test code = 3261) . Negative - Negative POCT U BLD (test code = 3257) Negative - Negative POCT U COLOR (test code = 3266) . POCT U APPEAR (test code = 3267) . Lab Interpretation (test code = Abnormal 34401-5) [facility] CenterPOCT [id number] 19:15:00 Test Item Value Reference Range Interpretation Comments POCT PREG (test code = 1605) Negative On board controls acceptable with C Yes Line (test code = 3574) POCT PREG LOT # (test code = 3575) POCT PREG TEST DATE (test code = 3576) [facility] CenterPOCT [id number] 19:15:00 Test Item Value Reference Range Interpretation Comments POCT PREG (test code = 1605) Negative On board controls acceptable with C Yes Line (test code = 3574) POCT PREG LOT # (test code = 3575) POCT PREG TEST DATE (test code = 3576) [facility]
[2021-06-08] MEDS ORDERED: KETOROLAC 30 MG/ML INJ ONE (11:26)
[2021-06-08 12:01] LABS: Absolute Lymphocytes (CBC) 1.9 K/uL (0.7-4.9); Basophils % 0.8 % (0-1.3); Hematocrit 42.1 % (36.0-45.0); Lymphocytes % 22.8 % (15.3-44.8); MPV 7.3 fL (7.6-11.3); RBC Red Blood Cell Count 3.95 M/uL (3.86-4.86)
[2021-06-08 12:06] LABS: BUN Blood Urea Nitrogen 11 mg/dL (7-18); Bicarbonate 25 mmol/L (21-32); Glucose Level 110 mg/dL (74-106); Potassium 3.5 mmol/L (3.5-5.1); Sodium Level 139 mmol/L (136-145)
[2021-06-08 12:35] LABS: SARS-COV-2 RT PCR NEGATIVE (NEGATIVE)
--- NOTE | 2021-06-08 12:44 | RAD REPORT ---
EXAM DESCRIPTION: RAD - Chest Pa And Lat (2 Views) - 06/08/2021 11:56 am CLINICAL HISTORY: CHEST PAIN COMPARISON: Chest Single View dated 03/29/2021; Chest Single View dated 01/02/2021; Chest Single View d ated 09/30/2020; Chest Single View dated 08/01/2020 FINDINGS: Lines: None. Lungs: No evidence of edema or pneumonia. Pleural: No significant pleural effusions or pneumothorax. Cardiac: The heart size is within normal limits. Bones: No acute fractures. Other: IMPRESSION: No acute cardiopulmonary disease.
--- NOTE | 2021-06-08 12:47 | ER ---
Nurse's Notes [facility] Name: Sylvia Cruz Age: 36 yrs Sex: Female : 1985 Arrival Date: 06/08/2021 Time: 10:01 Bed 18 Private MD: Diagnosis: Pleurisy;Acute upper respiratory infection, unspecified Presentation: 06/08 10:35 Chief complaint: Patient states: Sammi been sick x3 days; last night i had a coughing fit [facility] and i got a sharp pain in my chest from the coughing fit and since it's been very painful to breathe. Pain is right sided. Pt denies fever, cough, "swimmers ears", headache, congestion, runny nose. Coronavirus screen: Vaccine status: Patient reports receiving the 2nd dose of the covid vaccine. Client denies travel out of the [place] in the last 14 days. Ebola Screen: Patient negative for fever greater than or equal to 101.5 degrees Fahrenheit, and additional compatible Ebola Virus Disease symptoms Patient denies exposure to infectious person. Patient denies travel to an Ebola-affected area in the 21 days before illness onset. Initial Sepsis Screen: Does the patient meet any 2 criteria? No. Patient's initial sepsis screen is negative. Does the patient have a suspected source of infection? No. Patient's initial sepsis screen is negative. Risk Assessment: Do you want to hurt yourself or someone else? Patient reports no desire to harm self or others. Onset of symptoms was June 2021. 10:35 Method Of Arrival: Ambulatory [facility] 10:35 Acuity: BONITA 3 [facility] Triage Assessment: 10:40 General: Appears in no apparent distress. Behavior is calm, cooperative, appropriate [facility] for age. Pain: Complains of pain in right nipple and right breast. Cardiovascular: Reports chest pain, Capillary refill < 3 seconds Patient's skin is warm and dry. Historical: - Allergies: 10:41 No Known Allergies; jh5 - PMHx: 10:40 Bipolar disorder; Depression; Hypertension; [facility] - Immunization history:: Adult Immunizations up to date. - Social history:: Smoking status: Patient uses alcohol, on a daily basis. street drugs, marijuana. Screenin:17 Abuse screen: Denies threats or abuse. Nutritional screening: No deficits noted. ll3 Tuberculosis screening: No symptoms or risk factors identified. Fall Risk IV access (20 points). Total Mcallister Fall Scale indicates No Risk (0-24 pts). Assessment: 11:17 General: Appears in no apparent distress. uncomfortable, Behavior is calm, cooperative. ll3 Pain: Complains of pain in chest Pain radiates to back Pain currently is 8 out of 10 on a pain scale. Pain began 1 day ago. Is continuous, Alleviated by rest, Aggravated by increased activity, repositioning. Neuro: Level of Consciousness is awake, alert, obeys commands, Oriented to person, place, time, situation, Speech is normal, Facial symmetry appears normal. Cardiovascular: Patient's skin is warm and dry. Respiratory: Airway is patent Trachea midline Respiratory effort is even, unlabored, Respiratory pattern is regular, symmetrical, Breath sounds are clear bilaterally. Parent/caregiver reports the patient having shortness of breath at rest this morning after a lot of coughing. GI: Abdomen is flat, non-distended. EENT: Throat is reddened Reports nasal discharge feeling like ears are clogged. Derm: Skin is pink, warm \\T\\ dry. 11:59 Reassessment: Patient appears in no apparent distress at this time. Patient and/or ll3 family updated on plan of care and expected duration. Pain level reassessed. Patient is alert, oriented x 3, equal unlabored respirations, skin warm/dry/pink. Patient states symptoms have improved. Vital Signs: 10:35 Pulse 94; Resp 16; Temp 97.6; Weight 61.23 kg; Height 5 ft. 2 in. (157.48 cm); [facility] 10:41 BP 133 / 93; Pulse 94; Resp 16; Pulse Ox 100% ; Weight 61.23 kg; Height 5 ft. 2 in. [facility] (157.48 cm); 11:58 BP 134 / 88; Pulse 89; Resp 15; Pulse Ox 100% on R/A; 3 13:00 BP 132 / 89; Pulse 88; Resp 15; Pulse Ox 100% ; 3 10:41 Body Mass Index 24.69 (61.23 kg, 157.48 cm) [facility] ED Course: 10:01 Patient arrived in ED. 5 10:40 Triage completed. [facility] 11:01 Rika Hinds FNP-C is [facility] 11:01 Akbar Crawford MD is Attending Physician. kb 11:01 Simon Muñoz, RN is Primary Nurse. ll3 11:17 Patient has correct armband on for positive identification. Bed in low position. Call 3 light in reach. Side rails up X 1. Pulse ox on. NIBP on. 11:17 Patient maintains SpO2 saturation greater than 95% on room air. ll3 11:23 Arm band placed on. EKG completed in triage. Results shown to MD. 3 11:41 Inserted saline lock: 20 gauge in right antecubital area, using aseptic technique. 3 11:41 Initial lab(s) drawn, by ED staff, sent to lab. EKG done, by ED staff, reviewed by 3 Rika GONZALEZ. 11:42 Basic Metabolic Panel Sent. 5 11:42 CBC with Diff Sent. 5 11:42 COVID-19/FLU A+B (Document "Date of Onset" if Symptomatic) Sent. [facility] 11:42 Basic Metabolic Panel Sent. [facility] 11:42 D-Dimer Sent. [facility] 11:43 Flu and/or RSV swab sent to lab. 5 11:52 Chest Pa And Lat (2 Views) XRAY In Process Unspecified. EDMS 13:10 No provider procedures requiring assistance completed. IV discontinued, intact, ll3 bleeding controlled, No redness/swelling at site. Pressure dressing applied. Administered Medications: 11:40 Drug: Ketorolac 15 mg Route: IVP; Site: right antecubital; ll3 12:00 Follow up: Response: No adverse reaction; Pain is decreased ll3 Outcome: 12:46 Discharge ordered by MD. kb 13:10 Discharged to home ambulatory. ll3 13:10 Condition: stable 13:10 Discharge instructions given to patient, Instructed on discharge instructions, follow up and referral plans. medication usage, Demonstrated understanding of instructions, follow-up care, medications, Prescriptions given X 1. 13:12 Patient left the ED. 3 Signatures: Dispatcher [employer] EDTX Rika Hinds FNP-C FNP-Rhianna Lovett 5 Li Kent, RN RN 5 Simon Muñoz, SARAHI RN 3 Karon North 5
--- NOTE | 2021-06-08 12:47 | EDPHYS ---
Physician Documentation [facility] Name: Sylvia Cruz Age: 36 yrs Sex: Female : 1985 Arrival Date: 06/08/2021 Time: 10:01 Bed 18 Private MD: ED Physician Akbar Crawford HPI: 06/08 12:54 This 36 yrs old Female presents to ER via Ambulatory with complaints of Chest kb Pain, Cough. 12:53 The patient or guardian reports cough, that is intermittent, described as moderate, flu kb symptoms, low-grade fever, myalgias, no appetite. Modifying factors: The symptoms are alleviated by nothing, the symptoms are aggravated by nothing. Associated signs and symptoms: Pertinent positives: chest pain, with cough, with movement, with breathing, fever, rhinorrhea, sore throat. The patient has not experienced similar symptoms in the past. The patient has not recently seen a physician. 12:54 Onset: The symptoms/episode began/occurred 3 day(s) ago. Severity of symptoms: At their kb worst the symptoms were moderate, in the emergency department the symptoms are unchanged. Pt reports cough, congestion, fever, malaise, headache that started 3 days ago. States she had a coughing fit and then chest pain to right lower chest. States pain worse with breathing, coughing, movement, laying flat. . Historical: - Allergies: 10:41 No Known Allergies; jh5 - PMHx: 10:40 Bipolar disorder; Depression; Hypertension; jh5 - Immunization history:: Adult Immunizations up to date. - Social history:: Smoking status: Patient uses alcohol, on a daily basis. street drugs, marijuana. ROS: 12:52 Abdomen/GI: Negative for abdominal pain, nausea, vomiting, diarrhea, and constipation. kb 12:52 Constitutional: Positive for body aches, chills, fatigue, fever, malaise. 12:52 Respiratory: Positive for cough, with no reported sputum, pleurisy, Negative for dyspnea on exertion, hemoptysis, orthopnea, shortness of breath, sputum production, wheezing. 12:52 Neuro: Positive for headache. 12:52 All other systems are negative. 12:53 ENT: Positive for rhinorrhea, sinus congestion, sore throat. kb Exam: 12:53 Constitutional: This is a well developed, well nourished patient who is awake, alert, kb and in no acute distress. Head/Face: Normocephalic, atraumatic. ENT: Moist Mucous membranes Cardiovascular: Regular rate and rhythm with a normal S1 and S2. No gallops, murmurs, or rubs. No pulse deficits. Respiratory: Respirations even and unlabored. No increased work of breathing. Talking in full sentences Skin: Warm, dry with normal turgor. Normal color. MS/ Extremity: Pulses equal, no cyanosis. Neurovascular intact. Full, normal range of motion. Neuro: Awake and alert, GCS 15, oriented to person, place, time, and situation. Moves all extremities. Normal gait. Psych: Awake, alert, with orientation to person, place and time. Behavior, mood, and affect are within normal limits. 15:57 ECG was reviewed by the Attending Physician. Vital Signs: 10:35 Pulse 94; Resp 16; Temp 97.6; Weight 61.23 kg; Height 5 ft. 2 in. (157.48 cm); 5 10:41 BP 133 / 93; Pulse 94; Resp 16; Pulse Ox 100% ; Weight 61.23 kg; Height 5 ft. 2 in. jh5 (157.48 cm); 11:58 BP 134 / 88; Pulse 89; Resp 15; Pulse Ox 100% on R/A; ll3 13:00 BP 132 / 89; Pulse 88; Resp 15; Pulse Ox 100% ; ll3 10:41 Body Mass Index 24.69 (61.23 kg, 157.48 cm) [facility] MDM: 11:02 Patient medically screened. 12:52 Data reviewed: vital signs, nurses notes. Data interpreted: Pulse oximetry: on room air kb is 100 %. Interpretation: normal. Counseling: I had a detailed discussion with the patient and/or guardian regarding: the historical points, exam findings, and any diagnostic results supporting the discharge/admit diagnosis, lab results, radiology results, the need for outpatient follow up, a family practitioner, to return to the emergency department if symptoms worsen or persist or if there are any questions or concerns that arise at home. 06/08 11:17 Order name: CBC with Diff kb 06/08 11:17 Order name: Basic Metabolic Panel kb 06/08 11:17 Order name: D-Dimer; Complete Time: 12:21 kb 06/08 11:17 Order name: Strep; Complete Time: 12:17 kb 06/08 11:17 Order name: COVID-19/FLU A+B (Document "Date of Onset" if Symptomatic); Complete Time: kb 12:39 06/08 11:17 Order name: CBC with Automated Diff; Complete Time: 12:52 EDMS 06/08 10:41 Order name: Chest Pa And Lat (2 Views) XRAY; Complete Time: 12:46 kb 06/08 11:17 Order name: EKG; Complete Time: 11:18 kb 06/08 11:17 Order name: EKG - Nurse/Tech; Complete Time: 11:23 kb 06/08 11:17 Order name: IV Start; Complete Time: 11:40 kb 06/08 11:17 Order name: Basic Metabolic Panel; Complete Time: 12:17 EDMS 06/08 12:05 Order name: CBC Smear Scan; Complete Time: 12:52 EDMS 06/08 12:13 Order name: Throat Culture EDMS EC:57 Rate is 87 beats/min. Rhythm is regular. QRS [place] is Normal. [place] interval is normal at kb 112 msec. QRS interval is normal at 74 msec. QT interval is normal at 372 msec. Administered Medications: 11:40 Drug: Ketorolac 15 mg Route: IVP; Site: right antecubital; ll3 12:00 Follow up: Response: No adverse reaction; Pain is decreased ll3 Disposition: 22:29 Co-signature as Attending Physician, Akbar Crawford MD I agree with the assessment and sp3 plan of care. Disposition Summary: 06/08/21 12:46 Discharge Ordered Location: Home kb Condition: Stable kb Diagnosis - Pleurisy kb - Acute upper respiratory infection, unspecified kb Followup: kb - With: Emergency Department - When: As needed - Reason: Worsening of condition Followup: kb - With: Private Physician - When: 2 - 3 days - Reason: Recheck today's complaints, Continuance of care, Re-evaluation by your physician Discharge Instructions: - Discharge Summary Sheet kb - Upper Respiratory Infection, Adult, [id number] kb - Viral Respiratory Infection, [id number] kb - Pleurisy, [id number] kb Forms: - Medication Reconciliation Form kb - Thank You Letter kb - Antibiotic Education kb - Prescription Opioid Use kb Prescriptions: - Prednisone 20 mg Oral Tablet - take 1 tablet by ORAL route once daily for 5 days; 5 tablet; Refills: 0, kb Product Selection Permitted Signatures: Dispatcher [employer] Rika Gauthier, JOB RECRUITER-C JOB RECRUITER-Akbar Gibbons MD MD sp3 Li Kent RN RN jh5 Simon Muñoz RN RN ll3
[2021-06-08 12:51] LABS: Blood Morphology Comment NOTED (NOT SEEN); Macrocytosis 1+; Platelet Estimate ADEQ; White Blood Cell Scan OK (OK)
[2021-06-08 13:35] VITALS: O2SAT 100
[2021-06-08 13:36] VITALS: TEMP 97.6
[2021-06-08 13:38] VITALS: BP 132/89
== END 2021-06-08 13:12 | disposition home or self-care (01) ==
LOC: ER 09:45
DX: R09.1 Pleurisy (principal); J06.9 Acute upper respiratory infection, unspecified; I10 Essential (primary) hypertension; Z20.822 Contact with and (suspected) exposure to COVID-19
CPT/HCPCS: 0240U; 36415; 71046; 80048; 85025; 85379; 87070; 87081; 93005; 96374; 99285

== ENCOUNTER 2021-06-28 08:15 | Emergency (ER) | payer SELFPAY ==
--- OUTSIDE RECORDS SUMMARY | 2021-06-28 08:20 | XMS REPORT | Continuity of Care Document ---
:1985 Author Organization [facility] t Address [address] [place] [address] Care Team Providers Name Role Phone ANNA AGUERO Primary Care Physician Unavailable Ann Marie GOMES Attending Clinician Unavailable Chung RIVERA Attending Clinician CHUNG Attending Clinician Unavailable Visit, Nurse Attending Clinician Unavailable Anne Welch Attending Clinician Anne AGUERO Attending Clinician Unavailable William OJEDA C Attending Clinician Andrea THOMAS Attending Clinician Unavailable Lucía BLUM Attending Clinician Ayana Alvarez Attending Clinician Ann Marie Morgan Attending Clinician Doctor Unassigned, Name Attending Clinician Unavailable CHUNG Admitting Clinician Unavailable Payers Payer Name Policy Type Policy Number Effective Date Expiration Date S ource Problems Condition Condition Condition Status Onset Resolution Last Treating Co mments Source Name Details Category Date Date Treatment Clinician Date Pelvic Pelvic Disease Active Univers pain pain 2-09 ity of 00:00: [address] Branch Encounter Encounter Disease Active Uni vers for for 4-16 ity [place] prescripti [place] Medical progestin- progestin- Br anch only only injected injected contracept contracept jacob jacob Encounter Encounter Disease Active Uni vers for for 4-16 ity of prescripti prescripti [place] 00 Medical progestin- progestin- Br anch only only injected injected contracept contracept jacob jacob Irregular Irregular Disease Active Uni vers menses menses 01-31 ity of 00:00: [place] [facility] Well woman Well woman Disease Active U nivers exam exam 10-06 ity of 00:00: [place] [facility] Well woman Well woman Disease Active U nivers exam exam 10-06 ity of 00:00: [place] [facility] Mollusca Mollusca Disease Active Unive rs contagiosa contagiosa 10-06 it y of 00:00: [place] [facility] Tobacco Tobacco Disease Active Univers use use 10-06 ity of disorder disorder 00:00: [place] [facility] Contracept Contracept Disease Active U nivers jacob jacob 1-07 ity of management management [place] [facility] Contracept Contracept Disease Active U nivers jacob jacob 107 ity of management management [place] [facility] Allergies, Adverse Reactions, Alerts Allergy Allergy Status Severity Reaction(s) Onset Inactive Treating Comm ents Source Name Type Date Date Clinician NO KNOWN Drug Active Univers ALLERGIE Class ity of [facility] Social History Social Habit Start Date Stop Date Quantity Comments Source Exposure to Unable to assess Univers ity of SARS-CoV-2 (event) [facility] History [facility] o f Alcohol Frequency [facility] Branch History [facility] o f Alcohol Std Drinks [facility] History [facility] o f Alcohol Binge [facility] History of tobacco Cigarette Smoker University of use [facility] Alcohol intake 2021-04-15 2021-04-15 0 /d University of 00:00:00 00:00:00 [facility] Tobacco use and 2012-10-03 2012-10-03 Never used Universit y of exposure 00:00:00 00:00:00 [facility] Cigarettes smoked 2012-10-03 2012-10-03 Univers ity of current (pack per 00:00:00 00:00:00 [facility]) - Reported Branch Cigarette 2012-10-03 2012-10-03 University of pack-years 00:00:00 00:00:00 [facility] Tobacco Comment 2012-10-03 2012-10-03 states only Universi ty of 00:00:00 00:00:00 smokes on [facility] Branch Alcohol Comment 2012-10-03 2012-10-03 socially Universit y of 00:00:00 00:00:00 [facility] Sex Ass[birth year] Universit y of 00:00:00 00:00:00 [facility] Smoking Status Start Date Stop Date Source Current some day smoker 2012-10-03 00:00:00 [facility] Medications Ordered Filled Start Stop Current Ordering [...] Sun04/15/21 at 2015, SAFIA medroxyPROG 2020-07- No [id number] 150mg Univers ESTERone 0-06 10-06 ity of (DEPO-PROVE 20:15: 19:08 [facility]) 00 :00 Medical injection Branch 150 mg medroxyPROG 2020-07- No [id number] 150mg 150 mg, Univers ESTERone 0-06 10-06 Intramuscu ity of (DEPO-PROVE 20:15: 19:08 lar, ONCE, [place] RA) 00 :00 1 dose, On Medical injection Wed [place] 150 mg 04/06/21 at 1515, Routine ondansetron 2020- No 4mg 4 mg, Slow Univers (ZOFRAN 11-02 IV Push, ity of (PF)) 00:00: 22:55 ONCE, 1 [place] injection 4 00 :00 dose, Mon Med ical mg 11/01/20 at [place] 1900, SAFIA morpHINE 2020- No 4mg 4 mg, Slow Un evaristo injection 4 11-02 IV Push, ity of mg 00:00: 22:55 ONCE, 1 [place] 00 :00 dose, Mon Medical 11/01/20 at [place] 1900, STAT NaCl 0.9% No 1000mL at 999 Uni vers (NS) bolus 11-01 mL/hr, ity of infusion 23:45: 01:30 1,000 mL, [place] as 1,000 mL 00 :00 IV Medical Infusion, [place] ONCE, 1 dose, [facility] 11/01/20 at 1845, STAT Nitrofurant 2020- No [id number] 100mg Take 1 Univers oin&Nit. 5-03 05-14 capsule by ity of Macrocryst 00:00: 04:59 mouth 2 [place] as (MACROBID) 00 :00 (two) Medical 100 mg times Branch capsule daily for 10 days. Nitrofurant 2020- No [id number] 100mg Take 1 Univers oin&Nit. 5-03 05-14 capsule by ity of [place]ryst 00:00: 04:59 mouth 2 [place] as (MACROBID) 00 :00 (two) Medical 100 mg times Branch capsule daily for 10 days. Nitrofurant 2020- No [id number] 100mg Take 1 Univers oin&Nit. 5-03 05-14 capsule by ity of [place] 00:00: 04:59 mouth 2 [place] as (MACROBID) 00 :00 (two) Medical 100 mg times Branch capsule daily for 10 days. Nitrofurant 2020- No [id number] 100mg Take 1 Univers oin&Nit. 5-03 05-14 capsule by ity of Macrocryst 00:00: 04:59 mouth 2 [place] as (MACROBID) 00 :00 (two) Medical 100 mg times Branch capsule daily for 10 days. naproxen 2020-0 Yes [id number] 250mg Take 1 Un evaristo 250 mg 2-09 tablet by ity of tablet 00:00: mouth [place] 00 every 8 Medical (eight) Branch hours as needed for Pain (scale 4-6). Take 500mg followed by 250mg every 6-8 hours naproxen 2020-0 Yes [id number] 250mg Take 1 Un evaristo 250 mg 2-09 tablet by ity of tablet 00:00: mouth [place] 00 every 8 Medical (eight) Branch hours as needed for Pain (scale 4-6). Take 500mg followed by 250mg every 6-8 hours naproxen 2020-0 Yes [id number] 250mg Take 1 Un evaristo 250 mg 2-09 tablet by ity of tablet 00:00: mouth [place] 00 every 8 Medical (eight) Branch hours as needed for Pain (scale 4-6). Take 500mg followed by 250mg every 6-8 hours naproxen 2020-0 Yes [id number] 250mg Take 1 Un evaristo 250 mg 2-09 tablet by ity of tablet 00:00: mouth [place] 00 every 8 Medical (eight) Branch hours as needed for Pain (scale 4-6). Take 500mg followed by 250mg every 6-8 hours naproxen 2020-0 Yes [id number] 250mg Take 1 Un evaristo 250 mg 2-09 tablet by ity of tablet 00:00: mouth [place] 00 every 8 Medical (eight) Branch hours as needed for Pain (scale 4-6). Take 500mg followed by 250mg every 6-8 hours naproxen 2020-0 Yes [id number] 250mg Take 1 Un evaristo 250 mg 2-09 tablet by ity of tablet 00:00: mouth [place] 00 every 8 Medical (eight) Branch hours as needed for Pain (scale 4-6). Take 500mg followed by 250mg every 6-8 hours naproxen 2020-0 Yes [id number] 250mg Take 1 Un evaristo 250 mg 2-09 tablet by ity of tablet 00:00: mouth [place] 00 every 8 Medical (eight) Branch hours as needed for Pain (scale 4-6). Take 500mg followed by 250mg every 6-8 hours naproxen Yes [id number] 250mg Take 1 Un evaristo 250 mg 2-09 tablet by ity of tablet 00:00: mouth [place] 00 every 8 Medical (eight) Branch hours as needed for Pain (scale 4-6). Take 500mg followed by 250mg every 6-8 hours naproxen Yes [id number] 250mg Take 1 Un evaristo 250 mg 2-09 tablet by ity of tablet 00:00: mouth [place] 00 every 8 Medical (eight) Branch hours as needed for Pain (scale 4-6). Take 500mg followed by 250mg every 6-8 hours medroxyPROG 2019-07- No [id number] 150mg Univers ESTERone 07-06 ity of (DEPO-PROVE 22:00: 20:59 [place] RA) 00 :00 Medical injection Branch 150 mg medroxyPROG 2019-07- No [id number] 150mg 150 mg, Univers ESTERone 07-06 Intramuscu ity of (DEPO-PROVE 22:00: 20:59 [facility]) 00 :00 [id number], Medical injection 4 doses, Branch 150 mg First dose on [place] 05/06/20 at 1600, Last dose on [place] 01/13/21 at 1600, Routine medroxyPROG 2019-07- No [id number] 150mg Univers ESTERone 07-06 ity of (DEPO-PROVE 22:00: 20:59 [place] RA) 00 :00 Medical injection Branch 150 mg medroxyPROG 2019-07- No [id number] 150mg 150 mg, Univers ESTERone 07-06 Intramuscu ity of (DEPO-PROVE 22:00: 20:59 [place], [place] RA) 00 :00 [id number], Medical injection 4 doses, Branch 150 mg First dose on [place] 05/06/20 at 1600, Last dose on [place] 01/13/21 at 1600, Routine medroxyPROG 2019-07- No [id number] 150mg Univers ESTERone 07-06 ity of (DEPO-PROVE 22:00: 20:59 [place] RA) 00 :00 Medical injection Branch 150 mg medroxyPROG 2019-07- No [id number] 150mg 150 mg, Univers ESTERone 07-06 Intramuscu ity of (DEPO-PROVE 22:00: 20:59 lar, [place] RA) 00 :00 [id number], Medical injection 4 doses, Branch 150 mg First dose on [place] 05/06/20 at 1600, Last dose on [place] 01/13/21 at 1600, Routine medroxyPROG 2019-07- No [id number] 150mg Univers ESTERone 1-05 10-07 ity of (DEPO-PROVE 22:00: 20:59 [place] RA) 00 :00 Medical injection Branch 150 mg medroxyPROG 2019-07- No [id number] 150mg Univers ESTERone 1-05 10-07 ity of (DEPO-PROVE 22:00: 20:59 [place] RA) 00 :00 Medical injection Branch 150 mg medroxyPROG 2019-07- No [id number] 150mg 150 mg, Univers ESTERone - 10-07 Intramuscu ity of (DEPO-PROVE 22:00: 20:59 lar, [place] RA) 00 :00 [id number], Medical injection 4 doses, Branch 150 mg First dose on [place] 05/06/20 at 1600, Last dose on [place] 01/13/21 at 1600, Routine medroxyPROG 2019-07- No [id number] 150mg Univers ESTERone 1-05 10-07 ity of (DEPO-PROVE 22:00: 20:59 [place] RA) 00 :00 Medical injection Branch 150 mg medroxyPROG 2019-07- No [id number] 150mg Univers ESTERone 1-05 10-07 ity of (DEPO-PROVE 22:00: 20:59 [place] RA) 00 :00 Medical injection Branch 150 mg medroxyPROG 2019-07- No [id number] 150mg Univers ESTERone 1-05 10-07 ity of (DEPO-PROVE 22:00: 20:59 [place] RA) 00 :00 Medical injection Branch 150 mg medroxyPROG 2019-2020- No [id number] 150mg Univers ESTERone 1-05 10-07 ity of (DEPO-PROVE 22:00: 20:59 [place] RA) 00 :00 Medical injection Branch 150 mg medroxyPROG 2019-07- No [id number] 150mg Univers ESTERone 1-05 07-14 ity of (DEPO-PROVE 22:00: 19:45 [place] RA) 00 :00 Medical injection Branch 150 mg medroxyPROG 2019-07- No [id number] 150mg 150 mg, [facility] 07-06 07-14 Intramuscu ity of (DEPO-PROVE 22:00: 19:45 lar, [facility]) 00 :00 [id number], Medical injection 4 doses, Branch 150 mg [...] hours as needed for Pain. medroxyPROG Yes [id number] 150mg 150 mg, Univers ESTERone 4-16 Intramuscu ity o f (DEPO-PROVE 20:45: lar, [place] RA) 00 [id number], Medical injection First dose Bran ch 150 mg on Sun10/15/18 at 1545, Until Discontinu ed, Routine medroxyPROG Yes [id number] 150mg Univers ESTERone 4-16 ity of (DEPO-PROVE 20:45: [place] RA) 00 Medical injection Branch 150 mg medroxyPROG Yes [id number] 150mg 150 mg, Univers ESTERone 4-16 Intramuscu ity o f (DEPO-PROVE 20:45: lar, [place] RA) 00 [id number], Medical injection First dose Bran ch 150 mg on Sun10/15/18 at 1545, Until Discontinu ed, Routine medroxyPROG Yes [id number] 150mg Univers ESTERone 4-16 ity of (DEPO-PROVE 20:45: [place] RA) 00 Medical injection Branch 150 mg medroxyPROG Yes [id number] 150mg 150 mg, Univers ESTERone 4-16 Intramuscu ity o f (DEPO-PROVE 20:45: lar, [place] RA) 00 [id number], Medical injection First dose Bran ch 150 mg on Sun10/15/18 at 1545, Until Discontinu ed, Routine medroxyPROG Yes [id number] 150mg Univers ESTERone 4-16 ity of (DEPO-PROVE 20:45: [place] RA) 00 Medical injection Branch 150 mg medroxyPROG 2018-0 Yes [id number] 150mg Univers ESTERone 4-16 ity of (DEPO-PROVE 20:45: [place] RA) 00 Medical injection Branch 150 mg medroxyPROG 2018-0 Yes [id number] 150mg Univers ESTERone 4-16 ity of (DEPO-PROVE 20:45: [place] RA) 00 Medical injection Branch 150 mg medroxyPROG 2018- Yes [id number] 150mg 150 mg, Univers ESTERone 4-16 Intramuscu ity o f (DEPO-PROVE 20:45: lar, [place] RA) 00 [id number], Medical injection First dose Bran ch 150 mg on Sun10/15/18 at 1545, Until Discontinu ed, Routine medroxyPROG Yes [id number] 150mg Univers ESTERone 4-16 ity of (DEPO-PROVE 20:45: [place] RA) 00 Medical injection Branch 150 mg medroxyPROG 2018- 2020- No [id number] 150mg Univers ESTERone 4-16 05-06 ity of (DEPO-PROVE 20:45: 21:59 [place] RA) 00 :19 Medical injection Branch 150 mg medroxyPROG 2018- 2020- No [id number] 150mg Univers ESTERone 4-16 05-06 ity of (DEPO-PROVE 20:45: 21:59 [place] RA) 00 :19 Medical injection Branch 150 mg Immunizations Ordered Filled Immunization Date Status Comments [facility] e Immunization Name Name Influenza Virus 2020-05-06 Completed Universit y of Vaccine Quad .5 mL 00:00:00 [place] Medical IM 6+ MO Branch Influenza Virus 2020-05-06 Completed Universit y of Vaccine Quad .5 mL 00:00:00 [place] Medical IM 6+ MO Branch Influenza Virus 2020-05-06 Completed Universit y of Vaccine [place] .5 mL 00:00:00 [place] Medical IM 6+ MO Branch Influenza Virus 2020-05-06 Completed Universit y of Vaccine Quad .5 mL 00:00:00 [place] Medical IM 6+ MO Branch Influenza Virus 2020-05-06 Completed Universit y of Vaccine Quad .5 mL 00:00:00 [place] Medical IM 6+ MO Branch Influenza Virus 2020-05-06 Completed Universit y of Vaccine Quad .5 mL 00:00:00 [place] Medical IM 6+ MO Branch Influenza Virus [...] y of Vaccine Quad .5 mL 00:00:00 [place] Medical IM 6+ MO Branch Influenza Virus 2020-05-06 Completed Universit y of Vaccine Quad .5 mL 00:00:00 [place] Medical IM 6+ MO Branch Influenza Virus 2020-05-06 Completed Universit y of Vaccine Quad .5 mL 00:00:00 [place] Medical IM 6+ MO Branch Tdap 2011-10-31 Completed University of 00:00:00 [facility] Branch Tdap 2011-10-31 Completed University of 00:00:00 [facility] Branch Tdap 2011-10-31 Completed University of 00:00:00 [facility] Branch TDAP 2011-10-31 Completed University of 00:00:00 [facility] Branch TDAP 2011-10-31 Completed University of 00:00:00 [facility] Branch TDAP 2011-10-31 Completed University of 00:00:00 [facility] Branch TDAP 2011-10-31 Completed University of 00:00:00 [facility] Branch TDAP 2011-10-31 Completed University of 00:00:00 [facility] Branch TDAP 2011-10-31 Completed University of 00:00:00 [facility] TDAP 2011-10-31 Completed University of 00:00:00 [facility] TDAP 2011-10-31 Completed University of 00:00:00 [facility] TDAP 2011-10-31 Completed University of 00:00:00 [facility] TDAP 2011-10-31 Completed University of 00:00:00 [facility] TDAP 2011-10-31 Completed University of 00:00:00 [facility] TDAP 2011-10-31 Completed University of 00:00:00 [facility] TDAP 2011-10-31 Completed University of 00:00:00 [facility] Tdap 2011-10-31 Completed University of 00:00:00 [facility] Tdap 2011-10-31 Completed University of 00:00:00 [facility] Vital Signs Vital Name Observation Time Observation Value Comments Source Systolic blood 2021-04-16 03:00:00 139 mm[Hg] Univer sity of pressure [facility] Diastolic blood 2021-04-16 03:00:00 102 mm[Hg] Unive rsity of pressure [facility] Heart rate 2021-04-16 03:00:00 115 /min [facility] Respiratory rate 2021-04-16 03:00:00 10 /min Univ ersity of [facility] Oxygen saturation in 2021-04-16 03:00:00 100 /min [facility] Arterial blood by [facility] Pulse oximetry Branch Body weight 2021-04-15 23:56:00 61.236 kg [facility] BMI 2021-04-15 23:56:00 24.69 kg/m2 Universi ty of [place] [facility] Systolic blood 2021-04-06 19:04:00 136 mm[Hg] Univer sity of pressure [place] [facility] Diastolic blood 2021-04-06 19:04:00 90 mm[Hg] Unive rsity of pressure [place] [facility] Heart rate 2021-04-06 19:04:00 75 /min Universi ty of [place] [facility] Body temperature 2021-04-06 19:04:00 37.22 Sushma Univ ersity of [place] [facility] Respiratory rate 2021-04-06 19:04:00 18 /min Univ ersity of [place] [facility] Body height 2021-04-06 19:04:00 157.5 cm Universi ty of [place] [facility] Body weight 2021-04-06 19:04:00 60.283 kg Universi ty of [place] [facility] BMI 2021-04-06 19:04:00 24.31 kg/m2 Universi ty of [place] [facility] Systolic blood 2021-01-12 19:44:00 120 mm[Hg] Univer sity of pressure [place] [facility] Diastolic blood 2021-01-12 19:44:00 82 mm[Hg] Unive rsity of pressure [place] [facility] Heart rate 2021-01-12 19:44:00 84 /min Universi ty of [place] [facility] Body temperature 2021-01-12 19:44:00 36.67 Sushma Univ ersity of [place] [facility] Respiratory rate 2021-01-12 19:44:00 16 /min Univ ersity of [place] [facility] Body height 2021-01-12 19:44:00 157.5 [...] 2020-11-02 02:46:00 36.11 Sushma Univ ersity of [place] [facility] Respiratory rate 2020-11-02 02:46:00 18 /min Univ ersity of [place] [facility] Body weight 2020-11-02 02:46:00 58.968 kg Universi ty of [place] [facility] BMI 2020-11-02 02:46:00 23.78 kg/m2 Universi ty of [place] [facility] Oxygen saturation in 2020-11-02 02:46:00 98 /min University of Arterial blood by [facility] jemima Pulse oximetry Branch Systolic blood 2020-11-02 02:46:00 140 mm[Hg] Univer sity of pressure [place] [facility] Diastolic blood 2020-11-02 02:46:00 95 mm[Hg] Unive rsity of pressure [place] [facility] Heart rate 2020-11-02 02:46:00 73 /min Universi ty of [place] [facility] Body temperature 2020-11-02 02:46:00 36.11 Sushma Univ ersity of [place] [facility] Respiratory rate 2020-11-02 02:46:00 18 /min Univ ersity of [place] [facility] Body weight 2020-11-02 02:46:00 58.968 kg Universi ty of [place] [facility] BMI 2020-11-02 02:46:00 23.78 kg/m2 Universi ty of [place] [facility] Oxygen saturation in 2020-11-02 02:46:00 98 /min University of Arterial blood by [facility] Pulse oximetry Branch Systolic blood 2020-11-02 00:00:00 146 mm[Hg] Univer sity of pressure [place] [facility] Diastolic blood 2020-11-02 00:00:00 98 mm[Hg] Unive rsity of pressure [place] [facility] Heart rate 2020-11-02 00:00:00 83 /min Universi ty of [place] [facility] Respiratory rate 2020-11-02 00:00:00 16 /min Univ ersity of [place] [facility] Oxygen saturation in 2020-11-02 00:00:00 100 /min University of Arterial blood by [facility] Pulse oximetry Branch Body temperature 2020-11-01 22:06:00 36.67 Sushma Univ ersity of [place] [facility] Body height 2020-11-01 22:06:00 157.5 cm Universi ty of [place] [facility] Body weight 2020-11-01 22:06:00 58.968 kg Universi ty of [place] [facility] BMI 2020-11-01 22:06:00 23.78 kg/m2 Universi ty of [place] [facility] Systolic blood 2020-11-02 00:00:00 146 mm[Hg] Univer sity of pressure [place] [facility] Diastolic blood 2020-11-02 00:00:00 98 mm[Hg] Unive rsity of pressure [facility] Heart rate 2020-11-02 00:00:00 83 /min Universi ty of [facility] Branch Respiratory rate 2020-11-02 00:00:00 16 /min Univ ersity of [facility] Oxygen saturation in 2020-11-02 00:00:00 100 /min [facility] Arterial blood by [facility] Pulse oximetry Branch Body temperature 2020-11-01 22:06:00 36.67 Sushma [address] [address] [facility] Body height 2020-11-01 22:06:00 157.5 cm Universi ty of [place] [facility] [place] Body weight 2020-11-01 22:06:00 58.968 kg Universi ty of [place] [facility] BMI 2020-11-01 22:06:00 23.78 kg/m2 Universi ty of [place] [facility] Systolic blood 2020-11-01 19:16:00 131 mm[Hg] Univer sity of pressure [facility] Branch Diastolic blood 2020-11-01 19:16:00 88 mm[Hg] Unive rsity of pressure [facility] Heart rate 2020-11-01 19:16:00 84 /min Universi ty of [facility] Body temperature 2020-11-01 19:16:00 36.94 Sushma [address] [address] [facility] Respiratory rate 2020-11-01 19:16:00 16 /min Univ ersity of [facility] Branch Body height 2020-11-01 19:16:00 157.5 cm Universi ty of [place] [facility] Body weight 2020-11-01 19:16:00 59.24 kg Universi ty of [place] [facility] BMI 2020-11-01 19:16:00 23.89 kg/m2 Universi ty of [place] [facility] Systolic blood 2020-11-01 19:16:00 131 mm[Hg] Univer sity of pressure [facility] Branch Diastolic blood 2020-11-01 19:16:00 88 mm[Hg] [...] 2020-11-01 19:16:00 23.89 kg/m2 Universi ty of [place] [facility] Systolic blood 2020-10-21 20:04:00 134 mm[Hg] Univer sity of pressure [place] [facility] Diastolic blood 2020-10-21 20:04:00 88 mm[Hg] Unive rsity of pressure [place] [facility] Heart rate 2020-10-21 20:04:00 100 /min Universi ty of [place] [facility] Body temperature 2020-10-21 20:04:00 37 Sushma Univ ersity of [place] [facility] Respiratory rate 2020-10-21 20:04:00 16 /min Univ ersity of [place] [facility] Body height 2020-10-21 20:04:00 157.5 cm Universi ty of [place] [facility] Body weight 2020-10-21 20:04:00 59.138 kg Universi ty of [place] [facility] BMI 2020-10-21 20:04:00 23.85 kg/m2 Universi ty of [place] [facility] Systolic blood 2020-07-29 20:31:00 132 mm[Hg] Univer sity of pressure [place] [facility] Diastolic blood 2020-07-29 20:31:00 90 mm[Hg] Unive rsity of pressure [place] [facility] Heart rate 2020-07-29 20:31:00 93 /min Universi ty of [place] [facility] Body temperature 2020-07-29 20:31:00 36.89 Sushma Univ ersity of [place] [facility] Respiratory rate 2020-07-29 20:31:00 16 /min Univ ersity of [place] [facility] Body height 2020-07-29 20:31:00 157.5 cm Universi ty of [place] [facility] Body weight 2020-07-29 20:31:00 60.51 kg Universi ty of [place] [facility] BMI 2020-07-29 20:31:00 24.40 kg/m2 Universi ty of [place] [facility] Systolic blood 2020-05-06 21:41:00 120 mm[Hg] Univer sity of pressure [place] [facility] Diastolic blood 2020-05-06 21:41:00 79 mm[Hg] Unive rsity of pressure [place] [facility] Heart rate 2020-05-06 21:41:00 93 /min Universi ty of [place] [facility] Body temperature 2020-05-06 21:41:00 36.61 Sushma Univ ersity of [place] [facility] Respiratory rate 2020-05-06 21:41:00 16 /min Univ ersity of [place] [facility] Body height 2020-05-06 21:41:00 157.5 cm Universi ty of [place] [facility] Body weight 2020-05-06 21:41:00 58.196 kg Universi ty of [place] [facility] BMI 2020-05-06 21:41:00 23.47 kg/m2 Universi ty of [place] [facility] Systolic blood 2019-08-27 19:50:00 120 mm[Hg] Univer sity of pressure [place] [facility] Diastolic blood 2019-08-27 19:50:00 82 mm[Hg] Unive rsity of pressure [place] [facility] Heart rate 2019-08-27 19:50:00 71 /min Universi ty of [place] [facility] Body temperature 2019-08-27 19:50:00 36.67 Sushma Univ ersity of [place] [facility] Respiratory rate 2019-08-27 19:50:00 16 /min Univ ersity of [place] [facility] Body height 2019-08-27 19:50:00 157.5 cm Universi ty of [place] [facility] Body weight 2019-08-27 19:50:00 55.877 kg Universi ty of [place] [facility] BMI 2019-08-27 19:50:00 22.53 kg/m2 Universi ty of [place] [facility] Systolic blood 2019-03-11 19:10:00 127 mm[Hg] Univer sity of pressure [place] [facility] Diastolic blood 2019-03-11 19:10:00 86 mm[Hg] Unive rsity of pressure [place] [facility] Heart rate 2019-03-11 19:09:00 84 /min [facility] Body temperature 2019-03-11 19:09:00 36.83 Sushma [place] [facility] Res[facility] rate 2019-03-11 19:09:00 16 /min [facility] Body height 2019-03-11 19:09:00 160 cm [facility] Body weight 2019-03-11 19:09:00 56.359 kg [facility] BMI 2019-03-11 19:09:00 22.01 kg/m2 [facility] Procedures Procedure Date / Time Performing Clinician Source Performed XR CHEST 1 VW 2021-04-16 00:30:36 Brooklyn Rodriguez [facility] TROPONIN I 2021-04-16 00:30:00 Brooklyn Rodriguez [facility] COMP. METABOLIC PANEL 2021-04-16 00:30:00 [facility] ([id number]) [facility] ETHANOL 2021-04-16 00:30:00 [facility] (IMMUNOASSAY) 2021-04-16 00:30:00 Brooklyn Rodriguez [facility] DRUG [facility] SCREEN CBC WITH DIFF 2021-04-16 00:30:00 [facility] D-DIMER 2021-04-16 00:30:00 Brooklyn Rodriguez [facility] URINALYSIS 2021-04-16 00:30:00 Brooklyn Rodriguez [facility] N-TERMINAL PRO-BNP 2021-04-16 00:30:00 Brooklyn Rodriguez [facility] COVID-19 (ID NOW RAPID 2021-04-16 00:30:00 Brooklyn Rodriguez [facility] TESTING) [facility] POCT TEST 2021-04-16 00:25:00 Brooklyn Rodriguez [facility] COVID-19 (ID NOW RAPID 2020-11-01 23:54:00 [facility] TESTING) [facility] US OVARY TORSION 2020-11-01 23:24:10 Lily Key [facility] LIPASE 2020-11-01 22:55:00 [place] [facility] COMP. METABOLIC PANEL 2020-11-01 22:55:00 Lily Key [facility] ([id number]) [facility] CBC WITH DIFF 2020-11-01 22:55:00 Lily Key [facility] o [facility] URINALYSIS 2020-11-01 22:55:00 Shahid, [facility] NOTICE OF PRIVACY 2020-11-01 21:52:38 Doctor Unassigned, No [facility] PRACTICES [facility] CONSENT/REFUSAL FOR 2020-11-01 21:50:14 Doctor Unassigned, No [facility] DIAGNOSIS AND TREATMENT [facility] POCT URINALYSIS 2020-11-01 19:20:00 Anna Aguero [facility] FLU VACC ([phone]), 6+ 2020-05-06 22:13:05 Mendy Gomes [facility] MONTHS, IM, QUAD [facility] ASSIGNMENT OF BENEFITS 2020-05-06 21:30:17 Doctor Unassigned, No [facility] POCT TEST 2019-03-11 19:13:00 Mendy Gomes [facility] ASSIGNMENT OF BENEFITS 2019-03-11 19:00:43 Doctor Unassigned, No [facility] Encounters Start End Encounter Admission Attending Care Care Encounter Source Date/Time Date/Time Type Type Clinicians Facility Department ID 2021-05-01 Emergency X [facility] ERT [id number] Univers 16:51:42 [facility] 2021-05-01 Emergency [facility] [id number] Univers 16:50:47 [facility] 2021-06-29 2021-06-29 Outpatient Anne GOMES [facility] [id number] Univers 13:00:00 13:00:00 MENDY [id number] [facility] 2021-06-29 2021-06-29 Outpatient Anne GOMES [facility] [id number] Univers 13:00:00 13:00:00 MENDY adrian [facility] 2021-05-10 2021-05-10 [facility] [id number] Univers 13:30:00 13:30:00 MENDY [id number] [facility] 2021-05-10 2021-05-10 [facility] [id number] Univers 13:30:00 13:30:00 MENDY [facility] 2021-04-15 2021-04-15 Emergency Chung [facility] 1.2.840.114 [id number] Univers 19:01:00 23:04:00 [facility] [id number] i ty [facility] 4.2.7.2.686 [facility] [id number] [address] 2021-04-15 2021-04-15 Emergency [facility] [id number] Univers 19:01:00 23:04:00 [place]N [facility] 2021-04-06 2021-04-06 [facility] 1.2 .840.114 [id number] Univers 13:20:16 13:45:56 Visit Anna Aguero [employer] [facility].13.10 [facility] 4.2.7.2.686 Anatoliy as MATERNAL [id number] Med ical & CHILD [address] [place] [address] 2021-04-06 2021-04-06 Outpatient R [facility] [id number] -[id number] Univers 13:30:00 13:30:00 [id number] [facility] 2021-04-06 2021-04-06 [facility] [id number] Univers 13:30:00 13:30:00 ANNA adrian o f [facility] 2021-01-13 2021-01-13 Outpatient R [facility] [id number] -[id number] Univers 13:30:00 13:30:00 [id number] [facility] 2021-01-13 2021-01-13 Outpatient R [facility] [id number] Univers 13:30:00 13:30[facility] 2021-01-12 2021-01-12 [facility] 1.2 .840.114 [id number] Univers 12:58:10 13:14:44 Visit Awilda Thomas [employer] 350.1.13. 10 ity of [facility] 4.2.7.2.686 Anatoliy as MATERNAL [id number] Med ical & CHILD [address] [place] [address] 2021-01-12 2021-01-12 Outpatient R [facility] [id number] -[id number] Univers 13:00:00 13:00:00 [id number] ity [facility] 2021-01-12 2021-01-12 Outpatient R [facility] [id number] Univers 13:00:00 13:00:00 ity [facility] 2021-01-12 2021-01-12 Outpatient R WILLIAM [facility] [id number] Univers 13:00:00 13:00:00 AWILDA morsey o f [facility] 2020-11-01 2020-11-01 Emergency Schoenstein TRAUMA 1.2.840.114 [id number] Univers 22:05:00 22:06:00 , [facility] 350.1.13.10 [place] [id number] [facility] [address] 2020-11-01 2020-11-01 Emergency Schoenstein TRAUMA 1.2.840.114 [id number] 22:05:00 22:06:00 , [facility] 350.1.13.10 4.2.7.2.686 [id number] 014 2020-11-01 2020-11-01 Emergency Shahid, [facility] 1.2.840.114 [id number] Univers 17:05:00 20:46:00 Ayana [place] 350.1.13.10 i ty of [place] [id number] [facility] [address] 2020-11-01 2020-11-01 Emergency Shahid, [facility] 1.2.840.114 [id number] 17:05:00 20:46:00 Ayana [place] 350.1.13.10 [place] 4.2.7.2.686 Malcolm [id number] 4 2020-11-01 2020-11-01 Office [facility] 1.2.840.114 [id number] Univers 13:58:16 14:28:58 Visit Anna R [employer] [facility].13.10 [facility] 4.2.7.2.686 Anatoliy as MATERNAL [id number] [facility] & CHILD [address] [place] [address] 2020-11-01 2020-11-01 Office [facility] 1.2.840.114 [id number] 13:58:16 14:28:58 Visit Anna Rodríguez [employer] 350.1.13.10 REGIONAL 4.2.7.2.686 MATERNAL [id number] & [address] 2020-11-01 2020-11-01 [facility] [id number] Univers 14:00:00 14:00:00 YURYTIERA ity o [facility] 2020-11-01 2020-11-01 [facility] [id number] Univers 07:45:00 07:45:00 CONRADNDOswaldo [id number] ity o [facility] 2020-10-21 2020-10-21 [facility] 1.2 .840.114 [id number] Univers 14:54:52 15:08:41 Visit Anna Aguero [employer] DES[employer] 350.1.13.10 [facility] 4.2.7.2.686 Anatoliy as MATERNAL [id number] [facility] & CHILD [address] [place] [address] 2020-10-21 2020-10-21 Outpatient R [facility] [id number] -[id number] Univers 14:30:00 14:30:00 [id number] ity [facility] 2020-10-21 2020-10-21 Outpatient R [facility] [id number] Univers 14:30:00 14:30:00 [facility] 2020-08-13 2020-08-13 Telephone [facility] 1.2.840.114 [id number] Univers 00:00:00 00:00:00 Awilda Mendez [employer] 350.1.13.10 ity of [facility] 4.2.7.2.686 Anatoliy as MATERNAL [id number] [address] 2020-08-10 2020-08-10 Outpatient R WILLIAM [facility] [id number] Univers 13:45:00 13:45:00 AWILDA morsey o f [facility] 2020-07-29 2020-07-29 Nurse Visit, [facility] Nurse [facility] 1.2 .840.114 [id number] Univers 14:20:34 14:34:34 Visit Anna Aguero [employer] DES[employer] 350.1.13.10 ity of [facility] 4.2.7.2.686 Anatoliy as MATERNAL [id number] [address] 2020-07-29 2020-07-29 Outpatient R [facility] [id number] -[id number] Univers 14:30:00 14:30:00 [id number] ity [facility] 2020-07-29 2020-07-29 Outpatient R [facility] [id number] Univers 14:30:00 14:30:00 ity [facility] 2020-05-06 2020-05-06 Office [facility] 1.2.699.032 [id number] Univers 15:32:18 16:10:31 Visit Mendy Jesus [employer] DESIGN[employer] 350.1.13.10 it y of [facility] 4.2.7.2.686 Anatoliy as MATERNAL [id number] [address] 2020-05-06 2020-05-06 [facility] [id number] Univers 15:30:00 15:30:00 MENDY [id number] [facility] 2020-05-06 2020-05-06 [facility] [id number] Univers 15:30:00 15:30:00 MENDY [facility] 2020-05-06 2020-05-06 Orders Doctor NAIK 1.2.840.114 [id number] Univers 00:00:00 00:00:00 Only Unassigned, BERKLEY 350.1.13.10 ity of [place] [facility] 4.2.7.2.686 Anatoliy as [id number] [address] 2020-02-11 2020-02-11 Outpatient R [facility] [id number] Univers 13:30:00 13:30:[id number] 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 350.1.13.[address]7.2.686 Anatoliy as MATERNAL [id number] [facility] ical & CHILD [address] [place] [address] 2019-11-19 2019-11-19 Outpatient R [facility] [id number] Univers 13:30:00 13:30:00 ity [facility] 2019-11-19 2019-11-19 Outpatient R [facility] [id number] Univers 13:30:00 13:30:00 ity [facility] 2019-08-27 2019-08-27 Nurse [facility], [facility] Nurse [facility] 1.2 .840.114 [id number] Univers 13:46:00 14:04:52 Visit Anna Aguero [employer]STUME DESIGNER 350.1.13.10 ity [place] [address]..2.68 Anatoliy as MATERNAL [id number] [facility] ical & CHILD [address] [place] [address] 2019-08-27 2019-08-27 Outpatient R [facility] [id number] Univers 13:30:00 13:30:00 [id number] ity [facility] 2019-08-27 2019-08-27 [facility] [id number] Univers 13:30:00 13:30:[address] [facility] 2019-03-11 2019-03-11 Office [facility] 1.2.269.287 [id number] Univers 14:03:33 14:50:27 Visit Mendy Jesus [employer]STUME DESIGNER 350.1.13.10 it y of [facility] 4.2.7.2.686 Anatoliy as MATERNAL [id number] Med ical & CHILD 107 [facility] 2019-03-11 2019-03-11 Orders Doctor HEENA 1.2.840.114 [id number] Univers 00:00:00 00:00:00 Only Unassigned, BERKLEY 350.1.13.10 ity of [place] [facility] 4.2.7.2.686 Anatoliy as [id number] [address] Results Test Description Test Time Test Comments Results Result Comments Source D-DIMER 2021-04-16 01:20:46 Test Item Value Reference Range Interpretation Comme nts D-DIMER (test code = <0.27 See_Comment [Autom ated message] The [id number]) system which ge nerated this result tra [...] diagnosis. Lab Interpretation Normal (test code = 07420-8) [facility] [id number] 01:03:13 Test Item Value Reference Interpretation Comments Range TROPONIN I (test 0.009 ng/mL See_Comment [Automated code = 8708779941) message] The system which generated this result [...] biotin. Lab Interpretation Normal (test code = 85743-8) [facility]21-[facility]-16 01:02:27 Test Item Value Reference Range Interpretation Comments ALCOHOL (test code = 302 mg/dL 5937688574) CHRIS (test code = CHRIS) <10 Drrtqdba77-036 Toxic>100 Depression of DOMESTIC LAUNDRY WORKER>400 Fatalities Reported [facility] [id number] 01:00:37 Test Item Value Reference Range Interpretation Comments NT-proBNP (test code 32 pg/mL See_Comment [Autom ated = 7594006320) message] The system which generated this result transmitted reference range : <=125. The reference range was not used to interpret this result as normal/abnormal . CHRIS (test code = CHRIS) Biotin has been reported to cause a negative bias, interpret results relative to patient's use of biotin. Lab Interpretation Normal (test code = 97298-6) [facility]OL[facility] PANEL (81747)2021-04-16 00:53:12 Test Item Value Reference Range Interpretation Comments NA (test code = 142 mmol/L 135-145 2637066170) K (test code = 4.5 mmol/L 3.5-5.0 9233877593) CL (test code = 111 mmol/L 98-108 H 6640256046) CO2 TOTAL (test code = 20 mmol/L 23-31 L 8303910003) AGAP (test code = 2-16 7044487404) BUN (test code = 9 mg/dL 7-23 6734791316) GLUCOSE (test code = 106 mg/dL 70-110 1553566182) CREATININE (test code = 0.59 mg/dL 0.50-1.04 4115459712) TOTAL BILI (test code = 0.7 mg/dL 0.1-1.5 8814667108) CALCIUM (test code = 9.2 mg/dL 8.6-10.6 8337975885) T PROTEIN (test code = 8.1 g/dL 6.3-8.2 9139177964) ALBUMIN (test code = 4.7 g/dL 3.5-5.0 8254860473) ALK PHOS (test code = 112 U/L 34-122 3002153404) ALTv (test code = 237 U/L 5-35 H 1742-6) AST(SGOT) (test code = 325 U/L 13-40 H 1945973953) eGFR (test code = mL/min/1.73m2 3468112118) CHRIS (test code = CHRIS) Association of [...] tests). Lab Interpretation Abnormal (test code = 59578-4) [facility] WITH [id number] 00:51:35 Test Item Value Reference Range Interpretation [...] RDW-SD (test code = 49.0 fL 39.0-49.9 05282-2) RDW-CV (test code = 13.0 % 12.0-15.5 788-0) PLT (test code = See_Comment [Automated 777-3) message] The sy stem which generated this result transmitted reference range : 166 - 358 10*3/ ?L. The reference r stoney was not used to interpret this result as normal/abnormal . MPV (test code = 8.8 fL 9.5-12.9 L 92903-7) NRBC/100 WBC (test See_Comment [Automat ed code = 4785710616) message] The system which generated this result transmitted reference range : 0.0 - 10.0 /100 WBCs. The refer ence range was not u sed to interpret th is result as normal/abnormal . NRBC x10^3 (test code <0.01 See_Comment [Auto mated = 9619763990) message] The s ystem which generated this result transmitted reference range : 10*3/?L. The reference range was not used to interpret this result as normal/abnormal . GRAN MAT (NEUT) % 48.0 % (test code = 770-8) IMM GRAN % (test code 0.30 % = 9339839647) LYMPH % (test code = 43.0 % 736-9) MONO % (test code = 6.5 % 5905-5) EOS % (test code = 1.4 % 713-8) BASO % (test code = 0.8 % 706-2) GRAN MAT x10^3(ANC) 4.14 10*3/uL 1.88-7.09 (test code = 2382807660) IMM GRAN x10^3 (test 0.03 10*3/uL 0.00-0.06 code = 5142321482) LYMPH x10^3 (test code 3.71 10*3/uL 1.32-3.29 H = 731-0) MONO x10^3 (test code 0.56 10*3/uL 0.33-0.92 = 742-7) EOS x10^3 (test code = 0.12 10*3/uL 0.03-0.39 711-2) BASO x10^3 (test code 0.07 10*3/uL 0.01-0.07 = 704-7) Lab Interpretation Abnormal (test code = 96410-0) [facility] [id number] 00:25:00 Test Item Value Reference Range Interpretation Comments POCT PREG (test code = 1605) negative On board controls acceptable with C present Line (test code = 3574) Lab Interpretation (test code = Normal 74151-0) [facility] (ID NOW RAPID TESTING)2020-11-02 00:16:01 Test Item Value Reference Range Interpretation Comments SARS-CoV-2 Rapid ID NOW Not Detected Not Detected (test code = 39514-5) CHRIS (test code = CHRIS) ID NOW COVID-19 Assay is an isothermal nucleic acid amplification test intended for the qualitative detection of nucleic acid from SARS-CoV-2 viral RNA in nasopharyngeal (FINANCIAL RECRUITER) specimens. It is used under Emergency Use [...] indicated. Lab Interpretation Normal (test code = 72832-4) [facility] WITH [id number] 23:54:55 Test Item Value Reference Range Interpretation [...] RDW-SD (test code = 46.5 fL 39.0-49.9 80629-2) RDW-CV (test code = 12.4 % 12.0-15.5 788-0) PLT (test code = See_Comment [Automated 777-3) message] The sy stem which generated this result transmitted reference range : 166 - 358 10*3/ ?L. The reference r stoney was not used to interpret this result as normal/abnormal . MPV (test code = 9.2 fL 9.5-12.9 L 71966-8) NRBC/100 WBC (test See_Comment [Automat ed code = 4741711892) message] The system which generated this result transmitted reference range : 0.0 - 10.0 /100 WBCs. The refer ence range was not u sed to interpret th is result as normal/abnormal . NRBC x10^3 (test code <0.01 See_Comment [Auto mated = 9993363886) message] The s ystem which generated this result transmitted reference range : 10*3/?L. The reference range was not used to interpret this result as normal/abnormal . GRAN MAT (NEUT) % 30.4 % (test code = 770-8) IMM GRAN % (test code 0.10 % = 1847675466) LYMPH % (test code = 57.2 % 736-9) MONO % (test code = 10.7 % 5905-5) EOS % (test code = 0.8 % 713-8) BASO % (test code = 0.8 % 706-2) GRAN MAT x10^3(ANC) 2.16 10*3/uL 1.88-7.09 (test code = 6134506012) IMM GRAN x10^3 (test <0.03 0.00-0.06 code = 4752648747) LYMPH x10^3 (test code 4.08 10*3/uL 1.32-3.29 H = 731-0) MONO x10^3 (test code 0.76 10*3/uL 0.33-0.92 = 742-7) EOS x10^3 (test code = 0.06 10*3/uL 0.03-0.39 711-2) BASO x10^3 (test code 0.06 10*3/uL 0.01-0.07 = 704-7) Lab Interpretation Abnormal (test code = 06491-3) [facility] OVARY [id number] 23:47:45 1. ?Low suspicion for ovarian torsion [...] Spectral Doppler evaluationof the ovaries was performed. Degreaser images were obtained for therecord. COMPARISON: None [...] ovary. Cul-de-sac: No free fluid is present.. [facility], Radiant Results Inft User - 11/01/2020 6:48 PM CDTEXAM: US OVARY TORSIONHISTORY: 35 years-old Female; RLQ LMP = uncertainTECHNIQUE: Transabdominal and transvaginal ultrasound imaging and colorDopplerevaluation of the pelvis was performed. Spectral Doppler evaluationof the ovaries was performed. Degreaser images were obtained for therecord. COMPARISON: NoneFINDINGS:Uterus: [...] agree withthe above report.[facility]21-[facility] 23:32:10 Test Item Value Reference Range Interpretation Comments APPEARANCE (test code = Clear Clear 9228677323) COLOR (test code = Straw Yellow A 5015575429) PH (test code = 4.8-8.0 0177217959) SP GRAVITY (test code = 1.003-1.030 L 4630447404) GLU U QUAL (test code = Normal Normal 0980564944) BLOOD (test code = 2+ Negative A 8540766605) KETONES (test code = Negative Negative 5248390948) PROTEIN (test code = Negative Negative 2887-8) UROBILIN (test code = Normal Normal 4137911175) BILIRUBIN (test code = Negative Negative 7053152185) NITRITE (test code = Negative Negative 5448216959) LEUK JOVI (test code = Negative Negative 2855489704) RBC/HPF (test code = <1 See_Comment [Autom ated message] 7282058640) The system [employer] generated this result transmitted ref erence range: 0 - 3 HP F. The reference range was not used to int erpret this result as normal/abnormal . WBC/HPF (test code = <1 See_Comment [Autom ated message] 6823580866) The system [employer] generated this result transmitted ref erence range: 0 - 5 HP F. The reference range was not used to int erpret this result as normal/abnormal . BACTERIA (test code = Negative Negative 9181048217) AMORPHOUS (test code = Rare Rare HPF 6238577990) SQ EPITH (test code = <1 HPF 1419969166) Lab Interpretation (test Abnormal code = 99632-3) [facility] METABOLIC PANEL (63441)2020-11-01 23:28:11 Test Item Value Reference Range Interpretation Comments NA (test code = 142 mmol/L 135-145 1975278387) K (test code = 3.2 mmol/L 3.5-5.0 L 4037052528) CL (test code = 106 mmol/L 98-108 1420442180) CO2 TOTAL (test code = 25 mmol/L 23-31 5006382296) AGAP (test code = 2-16 1750895123) BUN (test code = 8 mg/dL 7-23 9243830579) GLUCOSE (test code = 117 mg/dL 70-110 H 9454326039) CREATININE (test code = 0.59 mg/dL 0.50-1.04 0099673702) TOTAL BILI (test code = 0.5 mg/dL 0.1-1.8 9658473564) CALCIUM (test code = 9.2 mg/dL 8.6-10.6 2155321604) T PROTEIN (test code = 7.8 g/dL 6.3-8.2 1412092042) ALBUMIN (test code = 4.6 g/dL 3.5-5.0 1554744321) ALK PHOS (test code = 118 U/L 34-122 0486548792) ALTv (test code = 151 U/L 5-35 H 1742-6) AST(SGOT) (test code = 132 U/L 13-40 H 1220936246) eGFR (test code = mL/min/1.73m2 3456883660) CHRIS (test code = CHRIS) Association of [...] tests). Lab Interpretation Abnormal (test code = 78967-0) [facility] 23:27:51 Test Item Value Reference Range Interpretation Comments LIPASE (test code = 4086179724) 90 U/L 0-220 Lab Interpretation (test code = Normal 27285-2) [facility] W SPECIFIC [id number] 19:23:00 Test Item Value Reference Range Interpretation [...] . Lab Interpretation (test code = Abnormal 47047-9) [facility] UR[facility] W SPECIFIC [id number] 19:23:00 Test Item Value Reference Range Interpretation [...] . Lab Interpretation (test code = Abnormal 44832-2) [facility] [id number] 19:15:00 Test Item Value Reference Range Interpretation Comments POCT PREG (test code = 1605) Negative On board controls acceptable with C Yes Line (test code = 3574) POCT PREG LOT # (test code = 3575) POCT PREG TEST DATE (test code = 3576) [facility] [id number] 19:15:00 Test Item Value Reference Range Interpretation Comments POCT PREG (test code = 1605) Negative On board controls acceptable with C Yes Line (test code = 3574) POCT PREG LOT # (test code = 3575) POCT PREG TEST DATE (test code = 3576) [facility]
--- NOTE | 2021-06-28 08:59 | ER ---
Nurse's Notes [facility] Name: Sylvia Cruz Age: 36 yrs Sex: Female : 1985 Arrival Date: 06/28/2021 Time: 08:17 Bed 5 Private MD: Diagnosis: Presentation: 06/28 08:27 Chief complaint: Patient states: RODRIGUEZ, weak, N/V/D for 2 days. No fever. + ll1 cough/congestion. Coronavirus screen: Vaccine status: Patient reports receiving the 2nd dose of the covid vaccine. Client denies travel out of the [place] in the last 14 days. chills, congestion, cough unrelated to allergies, fatigue, headache, muscle pain, nausea, shaking with chills, shortness of breath, loss of taste or smell, vomiting. Client presents with at least one sign or symptom that may indicate coronavirus-19. Standard/surgical mask placed on the client. Ebola Screen: Patient denies travel to an Ebola-affected area in the 21 days before illness onset. Initial Sepsis Screen: Does the patient meet any 2 criteria? HR > 90 bpm. No. Patient's initial sepsis screen is negative. Does the patient have a suspected source of infection? Yes: Productive cough/pneumonia. Risk Assessment: Do you want to hurt yourself or someone else? Patient reports no desire to harm self or others. Onset of symptoms was June 26, 2021. 08:27 Method Of Arrival: Ambulatory ll1 08:27 Acuity: BONITA 3 ll1 Historical: - Allergies: 08:27 No Known Allergies; ll1 - PMHx: 08:27 Hypertension; Depression; Bipolar disorder; ll1 - PSHx: 08:27 None; ll1 - Immunization history:: Client reports receiving the 1st dose of the Covid vaccine, Flu vaccine status is unknown. - Social history:: Smoking status: Patient denies any tobacco usage or history of. Vital Signs: 08:27 BP 122 / 95; Pulse 108; Resp 18; Temp 97.5; Pulse Ox 97% ; Weight 61.69 kg; Height 5 ll1 ft. 2 in. (157.48 cm); Pain 4/10; 08:27 Body Mass Index 24.87 (61.69 kg, 157.48 cm) ll1 ED Course: 08:17 Patient arrived in ED. mr 08:30 Triage completed. ll1 08:30 Carlito Santos, RN is Primary Nurse. bp 08:30 Arm band placed on. ll1 08:39 Keaton Fairchild NP is PHCP. pm1 08:39 Jarad Fermin MD is Attending Physician. pm1 Administered Medications: No medications were administered Outcome: 08:57 Eloped from patient exam room, before seeing physician Time discovered patient gone: bp June 28, 2021 at 08:58 08:58 Patient left the ED. bp Signatures: Sylvia Roamn mr Keaton Fairchild, GLADYS SCANNING MANAGER pm1 Carlito Santos, RN RN Alfonso Stratton RN RN 1
[2021-06-28 09:02] VITALS: BP 122/95; TEMP 97.5; O2SAT 97
--- NOTE | 2021-06-29 08:58 | EDPHYS ---
Physician Documentation [facility] Name: Sylvia Cruz Age: 36 yrs Sex: Female : 1985 Arrival Date: 06/28/2021 Time: 08:17 Bed 5 Private MD: ED Physician Jarad Fermin Historical: - Allergies: 06/28 08:27 No Known Allergies; ll1 - PMHx: 08:27 Hypertension; Depression; Bipolar disorder; ll1 - PSHx: 08:27 None; ll1 - Immunization history:: Client reports receiving the 1st dose of the Covid vaccine, Flu vaccine status is unknown. - Social history:: Smoking status: Patient denies any tobacco usage or history of. Vital Signs: 08:27 BP 122 / 95; Pulse 108; Resp 18; Temp 97.5; Pulse Ox 97% ; Weight 61.69 kg; Height 5 ll1 ft. 2 in. (157.48 cm); Pain 4/10; 08:27 Body Mass Index 24.87 (61.69 kg, 157.48 cm) ll1 MDM: 08:50 Patient medically screened. pm1 08:50 ED course: Patient not present in ED room. pm1 06/28 08:49 Order name: COVID-19/FLU A+B/RSV (Document "Date of Onset" if Symptomatic) bp 06/28 08:49 Order name: Strep bp Administered Medications: No medications were administered Disposition: 06/29 07:25 Co-signature as Attending Physician, Jarad Fermin MD I agree with the assessment and kdr plan of care. Disposition Summary: 06/28/21 08:58 Eloped Disposition: before being seen by provider bp Reason: unknown bp Signatures: Dispatcher [employer] EDMS Jarad Fermin MD MD kdr Keaton Fairchild NP STOCK SORTER pm1 Carlito Santos, SARAHI RN bp Alfonso Slade RN RN ll1
== END 2021-06-28 08:58 | disposition left against medical advice (07) ==
LOC: ER 08:15
DX: Z53.21 Procedure and treatment not carried out due to patient leaving prior to being seen by health care provider (principal)
CPT/HCPCS: 99281

== ENCOUNTER 2021-08-13 09:13 | Emergency (ER) | payer SELFPAY ==
--- OUTSIDE RECORDS SUMMARY | 2021-08-13 09:15 | XMS REPORT | Continuity of Care Document ---
:1985 Author Organization [facility] t Address [address] [place] [address] Care Team Providers Name Role Phone ANNA AGUERO Primary Care Physician Unavailable Andrea Medeiros Attending Clinician Andrea THOMAS Attending Clinician Unavailable Ann Marie GOMES Attending Clinician Unavailable DEYSI Attending Clinician Unavailable Lucía BLUM Attending Clinician Ayana Alvarez Attending Clinician Anne Welch Attending Clinician DEYSI Admitting Clinician Unavailable Payers Payer Name Policy Type Policy Number Effective Date Expiration Date S ource Problems Condition Condition Condition Status Onset Resolution Last Treating Co mments Source Name Details Category Date Date Treatment Clinician Date Pelvic Pelvic Disease Active Univers pain pain 2-09 ity of 00:00: [address] Encounter Encounter Disease Active Uni vers for for 4-16 [place] 00 Medical progestin- progestin- Br anch only only injected injected contracept contracept jacob jacob Irregular Irregular Disease Active Uni vers menses menses 8-02 ity of 00:00: [address] Well woman Well woman Disease Active U nivers exam exam 4-07 ity of 00:00: [address] Mollusca Mollusca Disease Active 2016-0 Unive rs contagiosa contagiosa 4-07 it y of 00:00: [place] 00 [facility] Tobacco Tobacco Disease Active Univers use use 407 ity of disorder disorder 00:00: [address] Contracept Contracept Disease Active U suzie james jacob 1-07 [place] management [place] [facility] Allergies, Adverse Reactions, Alerts Allergy Allergy Status Severity Reaction(s) Onset Inactive Treating Comm ents Source Name Type Date Date Clinician NO KNOWN Drug Active Univers ALLERGIE Class ity of S [facility] Social History Social Habit Start Date Stop Date Quantity Comments Source Exposure to Not sure [facility] SARS-CoV-2 (event) [facility] History SDOH University o f [facility] University o f Alcohol Std Drinks [facility] History [facility] University o f Alcohol Binge [facility] al Fithian History of tobacco Cigarette Smoker University of use [facility] Tobacco use and 2021-07-01 2021-07-01 Never used Universit y of exposure 00:00:00 00:00:00 [facility] Cigarettes smoked 2021-07-01 2021-07-01 Univers ity of current (pack per 00:00:00 00:00:00 [facility] ) - Reported Branch Cigarette 2021-07-01 2021-07-01 University of pack-years 00:00:00 00:00:00 [facility] Alcohol intake 2021-07-01 2021-07-01 Ex-drinker University of 00:00:00 00:00:00 (finding) [facility] Tobacco Comment 2012-10-03 2012-10-03 states only Universi ty of 00:00:00 00:00:00 smokes on [facility] Alcohol Comment 2012-10-03 2012-10-03 socially Universit y of 00:00:00 00:00:00 [facility] Sex Assigned At [birth year] Universit y of 00:00:00 00:00:00 [facility] Smoking Status Start Date Stop Date Source Former smoker 2021-07-01 00:00:00 2021-07-01 00:00:00 Universi ty of [facility] Medications Ordered Filled Start Stop Current Ordering Indication Dosage Frequency Signature Comments Components Source Medication Medication Date Date Medication? Clinician (SIG) Name Name medroxyPROG 2021-1 2022- Yes [id number] 150mg Univers ESTERone 06-02 ity of (DEPO-PROVE 20:15: 20:14 [place] ) 00 :00 Medical injection Branch 150 mg medroxyPROG 2020-07- Yes [id number] 150mg 150 mg, Univers ESTERone 06-02 Intramuscu ity of (DEPO-PROVE 20:15: 20:14 lar, [place] RA) 00 :00 [id number], Medical injection 4 doses, Branch 150 mg First dose on Sun07/01/21 at 1415, Last dose on Sun03/10/22 at 1415, Routine cephALEXin 2020-07 Yes [id number] 500mg Take 1 Univers (KEFLEX) 2-29 capsule by ity o f 500 mg 00:00: mouth 3 [place] capsule 00 (three) Medical times Branch daily. naproxen Yes [id number] 250mg Take 1 Un evaristo 250 mg 2-09 tablet by ity of tablet 00:00: mouth [place] 00 every 8 Medical (eight) Branch hours as needed for Pain (scale 4-6). Take 500mg followed by 250mg every 6-8 hours tramadol-ac 2019-07 Yes 1{tbl} Take 1 Un evaristo etaminophen 1-05 tablet by ity of 37.5-325 mg 15:47: mouth [place] per tablet 24 every 6 Medica l (six) Branch hours as needed for Pain. Immunizations Ordered Filled Immunization Date Status Comments Sour e Immunization Name Name HPV9 2021-07-01 Completed University 00:00:00 [facility] Influenza Virus 2020-05-06 Completed Universit y of Vaccine Quad .5 mL 00:00:00 [facility] IM 6+ MO Branch TDAP 2011-10-31 Completed [facility] 00:00:00 [facility] Vital Signs Vital Name Observation Time Observation Value Comments Source Systolic blood 2021-07-01 19:55:00 129 mm[Hg] Univer sity of pressure [facility] Diastolic blood 2021-07-01 19:55:00 92 mm[Hg] Unive rsity of pressure [facility] Heart rate 2021-07-01 19:34:00 82 /min Universi ty of [facility] Body temperature 2021-07-01 19:34:00 36.17 [facility] Respiratory rate 2021-07-01 19:34:00 18 /min [facility] Body height 2021-07-01 19:34:00 154.9 cm [facility] Body weight 2021-07-01 19:34:00 60.963 kg [facility] BMI 2021-07-01 19:34:00 25.39 kg/m2 [facility] Procedures Procedure Date / Time Performed Performing Clinician Mc owen GARDASIL 9 (HPV 9V) 2021-07-01 20:10:59 Awilda Thomas [facility] Encounters Start End Encounter Admission Attending Care Care Encounter Source Date/Time Date/Time Type Type Clinicians Facility Department ID 2021-07-01 2021-07-01 Office William [facility] [id number] Univers 13:15:00 14:10:58 Visit Awilda Mendez BUSINESS TRANSFORMATION MANAGER [id number] [facility] [id number] Anatoliy as MATERNAL [id number] Med ical & CHILD [address] [place] [address] 2021-07-01 2021-07-01 Outpatient R WILLIAM [facility] [id number] Univers 09:00:00 09:00:00 AWILDA acosta [facility] 2021-06-29 2021-06-29 Outpatient R ELISEO [facility] [id number] Univers 13:00:00 13:00:00 MARQUITA adrian [facility] 2021-06-28 2021-06-29 Emergency X DEYSI [facility] ERT [id number] Univers 23:27:00 04:47:00 MARY adrian [facility] 2020-11-01 2020-11-01 Emergency [facility] TRAUMA [id number] 22:05:00 22:06:00 , Keshia [place] [id number] 2020-11-01 2020-11-01 Emergency [place] [facility] [id number] 17:05:00 20:46:00 Ayana Martin [id number] [place] [id number] [place] [id number] 2020-11-01 2020-11-01 Office SONNY Aguero [id number] 13:58:16 14:28:58 Visit Anna Rodríguez BUSINESS TRANSFORMATION MANAGER [id number] [facility] [id number] MATERNAL [id number] & CHILD [address] [place] [address] - POSEN Results This patient has no known results.
[2021-08-13] MEDS ORDERED: ONDANSETRON 4 MG/2 ML VIAL ONE (09:45)
[2021-08-13] MEDS ORDERED: NA CHLORIDE 0.9% 1,000 ML ONE (09:45)
[2021-08-13] MEDS ORDERED: KETOROLAC 30 MG/ML INJ ONE (09:45)
[2021-08-13] MEDS ORDERED: FAMOTIDINE 20 MG/2 ML VIAL IV ONE (09:45)
[2021-08-13 10:04] LABS: Absolute Lymphocytes (CBC) 1.6 K/uL (0.7-4.9); Hematocrit 42.8 % (36.0-45.0); MPV 6.9 fL (7.6-11.3); RBC Red Blood Cell Count 3.96 M/uL (3.86-4.86)
[2021-08-13 10:29] LABS: Albumin 3.9 g/dL (3.4-5.0); Bilirubin Direct 0.4 mg/dL (0-0.2); Bilirubin Total 1.1 mg/dL (0.2-1.0)
[2021-08-13 11:09] LABS: Anisocytosis SLIGHT; Blood Morphology Comment NOTED (NOT SEEN); Macrocytosis 1+; Platelet Estimate ADEQ
[2021-08-13 11:16] LABS: SARS-COV-2 RT PCR NEGATIVE (NEGATIVE)
--- NOTE | 2021-08-13 13:08 | EDPHYS ---
Physician Documentation [facility] Name: Sylvia Cruz Age: 36 yrs Sex: Female : 1985 Arrival Date: 08/13/2021 Time: 09:16 Bed 15 Private MD: ED Physician Jarad Fermin HPI: 08/13 09:39 This 36 yrs old Female presents to ER via Ambulatory with complaints of , kdr Vomiting, headache, Weakness. 09:41 Patient states that one of her best friend committed suicide short time ago. Since then kdr her and others have been drinking and smoking heavily. Today she presents with headache generalized weakness nausea, vomiting and diarrhea. She generally feels weak. Onset: The symptoms/episode began/occurred gradually, 3 day(s) ago. Severity of symptoms: At their worst the symptoms were mild moderate just prior to arrival, in the emergency department the symptoms are unchanged. The patient has not experienced similar symptoms in the past. The patient has not recently seen a physician. Historical: - Allergies: 09:25 No Known Allergies; ph - PMHx: 09:25 Bipolar disorder; Depression; Hypertension; ph - Social history:: Smoking status: Patient reports the use of cigarette tobacco products, denies chronic smoking, but will smoke occasionally. ROS: 09:41 Constitutional: Negative for fever, chills, and weight loss, Eyes: Negative for injury, kdr pain, redness, and discharge, ENT: Negative for injury, pain, and discharge, Neck: Negative for injury, pain, and swelling, Cardiovascular: Negative for chest pain, palpitations, and edema, Back: Negative for injury and pain, : Negative for injury, bleeding, discharge, and swelling, MS/Extremity: Negative for injury and deformity, Skin: Negative for injury, rash, and discoloration, Psych: Negative for depression, anxiety, suicide ideation, homicidal ideation, and hallucinations, Allergy/Immunology: Negative for hives, rash, and allergies, Endocrine: Negative for neck swelling, polydipsia, polyuria, polyphagia, and marked weight changes, Hematologic/Lymphatic: Negative for swollen nodes, abnormal bleeding, and unusual bruising. 09:41 Respiratory: Positive for cough, with no reported sputum, dyspnea on exertion, shortness of breath, Negative for hemoptysis, orthopnea, pleurisy. 09:41 Abdomen/GI: Positive for nausea, vomiting, and diarrhea, Negative for constipation, abdominal cramps, abdominal distension, anorexia, dysphagia, hematemesis, black/tarry stool, rectal pain, rectal bleeding, bowel incontinence. 09:41 Neuro: Positive for headache, Negative for altered mental status, dizziness, gait disturbance, hearing loss, loss of consciousness, numbness, seizure activity, speech changes, syncope, near syncope, tinnitus, tremor, visual changes. Exam: 09:41 Constitutional: This is a well developed, well nourished patient who is awake, alert, kdr and in no acute distress. Head/Face: Normocephalic, atraumatic. Eyes: Pupils equal round and reactive to light, extra-ocular motions intact. Lids and lashes normal. Conjunctiva and sclera are non-icteric and not injected. Cornea within normal limits. Periorbital areas with no swelling, redness, or edema. Neck: Trachea midline, no thyromegaly or masses palpated, and no cervical lymphadenopathy. Supple, full range of motion without nuchal rigidity, or vertebral point tenderness. No Meningismus. Chest/axilla: Normal chest wall appearance and motion. Nontender with no deformity. No lesions are appreciated. Cardiovascular: Regular rate and rhythm with a normal S1 and S2. No gallops, murmurs, or rubs. Normal PMI, no JVD. No pulse deficits. Respiratory: Lungs have equal breath sounds bilaterally, clear to auscultation and percussion. No rales, rhonchi or wheezes noted. No increased work of breathing, no retractions or nasal flaring. Abdomen/GI: Soft, non-tender, with normal bowel sounds. No distension or tympany. No guarding or rebound. No evidence of tenderness throughout. Back: No spinal tenderness. No costovertebral tenderness. Full range of motion. Skin: Warm, dry with normal turgor. Normal color with no rashes, no lesions, and no evidence of cellulitis. MS/ Extremity: Pulses equal, no cyanosis. Neurovascular intact. Full, normal range of motion. Neuro: Awake and alert, GCS 15, oriented to person, place, time, and situation. Cranial nerves II-XII grossly intact. Motor strength 5/5 in all extremities. Sensory grossly intact. Cerebellar exam normal. Normal gait. Psych: Awake, alert, with orientation to person, place and time. Behavior, mood, and affect are within normal limits. 09:41 : The patient has control in place. Vital Signs: 09:23 BP 119 / 86; Pulse 100; Resp 20; Temp 97.2(TE); Pulse Ox 98% on R/A; Weight 61.23 kg; ph Height 5 ft. 2 in. (157.48 cm); 09:53 BP 125 / 84; Pulse 90; Resp 18; Pulse Ox 100% on R/A; ic1 13:13 BP 111 / 86; Pulse 91; Resp 18; Pulse Ox 100% on R/A; ic1 09:23 Body Mass Index 24.69 (61.23 kg, 157.48 cm) ph MDM: 11:38 Data reviewed: vital signs, nurses notes, lab test result(s), radiologic studies. kdr Counseling: I had a detailed discussion with the patient and/or guardian regarding: the historical points, exam findings, and any diagnostic results supporting the discharge/admit diagnosis, lab results, radiology results, the need for outpatient follow up. ED course: Feeling much better. Her headache has resolved and her nausea has resolved as well. She states that she is not surprised that her liver enzymes are elevated given the fact that she has been drinking heavily for the past few days.. 13:08 Patient medically screened. kdr 08/13 09:38 Order name: Basic Metabolic Panel; Complete Time: 10:39 kdr 08/13 09:38 Order name: CBC with Diff; Complete Time: 11:21 kdr 08/13 09:38 Order name: Hepatic Function; Complete Time: 10:39 kdr 08/13 09:38 Order name: Lipase; Complete Time: 10:39 kdr 08/13 09:38 Order name: ETOH Level; Complete Time: 11:21 kdr 08/13 09:38 Order name: Alcohol Serum/Plasma; Complete Time: 10:39 EDMS 08/13 11:09 Order name: Manual Differential; Complete Time: 11:21 EDNC 08/13 09:38 Order name: IV Saline Lock; Complete Time: 09:51 kdr 08/13 09:38 Order name: Labs collected and sent; Complete Time: 09:51 kdr Administered Medications: 09:50 Drug: NS 0.9% 1000 ml Route: IV; Rate: 1 bolus; Site: right antecubital; ic1 13:24 Follow up: IV Status: Completed infusion; IV Intake: 1000ml ic1 09:50 Drug: Pepcid (famotidine) 20 mg Route: IVP; Site: right antecubital; ic1 09:50 Drug: Zofran (Ondansetron) 4 mg Route: IVP; Site: right antecubital; ic1 13:23 Follow up: Response: Nausea is decreased ic1 09:50 Drug: Ketorolac 15 mg Route: IVP; Site: right antecubital; ic1 13:23 Follow up: Response: No adverse reaction; Pain is decreased ic1 Disposition Summary: 08/13/21 13:08 Discharge Ordered Location: Home kdr Problem: new kdr Symptoms: have improved kdr Condition: Stable kdr Diagnosis - Weakness kdr - Nausea with vomiting, unspecified kdr - Alcohol abuse kdr Followup: kdr - With: Private Physician - When: 2 - 3 days - Reason: If symptoms return, Further diagnostic work-up, Recheck today's complaints, Continuance of care, Re-evaluation by your physician Discharge Instructions: - Discharge Summary Sheet kdr - Fatigue kdr - Nausea and Vomiting, Adult, [id number] kdr - Weakness, [id number] kdr Forms: - Medication Reconciliation Form kdr - Thank You Letter kdr Prescriptions: - Zofran 4 mg Oral Tablet - take 1 tablet by ORAL route every 4-6 hours As needed; 12 tablet; Refills: 0, kdr Product Selection Permitted Signatures: Dispatcher [employer] Jarad Miller MD MD kdr Whitney Rick RN RN ph Creggett, Iesha, RN RN ic1
--- NOTE | 2021-08-13 13:08 | ER ---
Nurse's Notes [facility] Name: Sylvia Cruz Age: 36 yrs Sex: Female : 1985 Arrival Date: 08/13/2021 Time: 09:16 Bed 15 Private MD: Diagnosis: Weakness;Nausea with vomiting, unspecified;Alcohol abuse Presentation: 08/13 09:23 Chief complaint: Patient states: Headache, general weakness, N/V/D, runny nose and ph cough x 2 days. Coronavirus screen: At this time, the client does not indicate any symptoms associated with coronavirus-19. Ebola Screen: No symptoms or risks identified at this time. Initial Sepsis Screen: Does the patient meet any 2 criteria? No. Patient's initial sepsis screen is negative. Does the patient have a suspected source of infection? No. Patient's initial sepsis screen is negative. Risk Assessment: Do you want to hurt yourself or someone else? Patient reports no desire to harm self or others. Onset of symptoms was August 13, 2021. 09:23 Method Of Arrival: Ambulatory 09:23 Acuity: BONITA 3 ph Historical: - Allergies: 09:25 No Known Allergies; ph - PMHx: 09:25 Bipolar disorder; Depression; Hypertension; ph - Social history:: Smoking status: Patient reports the use of cigarette tobacco products, denies chronic smoking, but will smoke occasionally. Screenin:53 Abuse screen: Denies threats or abuse. Denies injuries from another. Nutritional ic1 screening: No deficits noted. Tuberculosis screening: No symptoms or risk factors identified. Fall Risk None identified. Assessment: 09:52 General: Appears in no apparent distress. uncomfortable, Behavior is calm, cooperative. ic1 Pain: Complains of pain in face. Neuro: Level of Consciousness is awake, alert, obeys commands, Oriented to person, place, time, situation. Cardiovascular: Denies chest pain, shortness of breath. Respiratory: Denies cough, shortness of breath. GI: No deficits noted. : No deficits noted. EENT: No deficits noted. Derm: No deficits noted. Musculoskeletal: Reports weakness in generalized. 12:45 Reassessment: Pt PO challenged. Tolerated. ic1 Vital Signs: : BP 119 / 86; Pulse 100; Resp 20; Temp 97.2(TE); Pulse Ox 98% on R/A; Weight 61.23 kg; ph Height 5 ft. 2 in. (157.48 cm); 09:53 BP 125 / 84; Pulse 90; Resp 18; Pulse Ox 100% on R/A; ic1 13:13 BP 111 / 86; Pulse 91; Resp 18; Pulse Ox 100% on R/A; ic1 09:23 Body Mass Index 24.69 (61.23 kg, 157.48 cm) ph ED Course: 09:16 Patient arrived in ED. mr 09:19 Jarad Fermin MD is Attending Physician. kdr 09:23 Luz Marina Palomino, SARAHI is Primary Nurse. ic1 09:25 Triage completed. ph 09:25 Arm band placed on Patient placed in an exam room, on a stretcher. ph 09:50 Alcohol Serum/Plasma Sent. ic1 09:50 ETOH Level Sent. ic1 09:51 Basic Metabolic Panel Sent. ic1 09:51 CBC with Diff Sent. ic1 09:51 Hepatic Function Sent. ic1 09:52 Lipase Sent. ic1 09:53 Patient has correct armband on for positive identification. Bed in low position. Call ic1 light in reach. Side rails up X2. 09:53 No provider procedures requiring assistance completed. Inserted saline lock: 20 gauge ic1 in right antecubital area, using aseptic technique. Blood collected. 13:13 IV discontinued, intact, bleeding controlled, No redness/swelling at site. Pressure ic1 dressing applied. Administered Medications: 09:50 Drug: NS 0.9% 1000 ml Route: IV; Rate: 1 bolus; Site: right antecubital; ic1 13:24 Follow up: IV Status: Completed infusion; IV Intake: 1000ml ic1 09:50 Drug: Pepcid (famotidine) 20 mg Route: IVP; Site: right antecubital; ic1 09:50 Drug: Zofran (Ondansetron) 4 mg Route: IVP; Site: right antecubital; ic1 13:23 Follow up: Response: Nausea is decreased ic1 09:50 Drug: Ketorolac 15 mg Route: IVP; Site: right antecubital; ic1 13:23 Follow up: Response: No adverse reaction; Pain is decreased ic1 Intake: 13:24 IV: 1000ml; Total: 1000ml. ic1 Outcome: 13:08 Discharge ordered by . kdr 13:10 Discharged to home ambulatory. ic1 13:10 Condition: stable 13:10 Discharge instructions given to patient, Instructed on discharge instructions, follow up and referral plans. Demonstrated understanding of instructions, follow-up care. 13:19 Prescriptions given X 1. ic1 13:24 Patient left the ED. ic1 Signatures: Jarad Fermin MD MD kdr Rivera, Mary mr Hall, Patricia, RN RN Luz Marina Palomino RN RN ic1
[2021-08-13 13:35] VITALS: O2SAT 100
[2021-08-13 13:37] VITALS: BP 111/86
[2021-08-13 13:39] VITALS: TEMP 97.2
== END 2021-08-13 13:24 | disposition home or self-care (01) ==
LOC: ER 09:13
DX: R53.1 Weakness (principal); F10.10 Alcohol abuse, uncomplicated; I10 Essential (primary) hypertension; F17.210 Nicotine dependence, cigarettes, uncomplicated
CPT/HCPCS: 0240U; 36415; 80048; 80076; 80320; 83690; 85025; 96361; 96374; 96375; 99284; J2405; J7030

== ENCOUNTER 2021-08-24 18:57 | Emergency (ER) | payer OTHER, SELFPAY ==
--- OUTSIDE RECORDS SUMMARY | 2021-08-24 18:59 | XMS REPORT | Continuity of Care Document ---
:1985 Author Organization [facility] t Address [address] [place] [address] Care Team Providers Name Role Phone ANNA [...] Univers pain pain 2-09 ity of 00:00: [address] Encounter Encounter Disease Active Uni vers for for 4-16 ity of prescripti prescript[place] 00 Medical progestin- progestin- Br anch only only injected injected contracept contracept jacob jacob Irregular Irregular Disease Active Uni vers menses menses 8 ity of 00:00: [address] Well woman Well woman Disease Active U nivers exam exam 10-06 ity of 00:00: [address] Mollusca Mollusca Disease Active Unive rs contagiosa contagiosa 10-06 it y of 00:00: [place] 00 [facility] Tobacco Tobacco Disease Active Univers use use 4 ity of disorder disorder 00:00: [address] Contracept Contracept Disease Active Glenn james 1-07 ity of management [place] [facility] Allergies, Adverse Reactions, Alerts Allergy Allergy Status Severity Reaction(s) Onset Inactive Treating Comm ents Source Name Type Date Date Clinician NO KNOWN Drug Active Univers ALLERGIE Class ity of S [facility] Social History Social Habit Start Date Stop Date Quantity Comments Source Exposure to Not sure [facility] SARS-CoV-2 (event) [facility] History SDOH University o [facility] o f Alcohol Std Drinks [facility] History [facility] University o f Alcohol Binge [facility] [place] History of tobacco Cigarette Smoker University of use [facility] Tobacco use and 2021-07-01 2021-07-01 Never used Universit y of exposure 00:00:00 00:00:00 [facility] Cigarettes smoked 2021-07-01 2021-07-01 Univers ity of current (pack per 00:00:00 00:00:00 [facility]) - Reported Branch Cigarette 2021-07-01 2021-07-01 University of pack-years 00:00:00 00:00:00 [facility] Alcohol intake 2021-07-01 2021-07-01 Ex-drinker University of 00:00:00 00:00:00 (finding) [facility] Tobacco Comment 2012-10-03 2012-10-03 states only Universi ty of 00:00:00 00:00:00 smokes on [facility] Branch Alcohol Comment 2012-10-03 2012-10-03 socially Universit y of 00:00:00 00:00:00 [facility] Sex [birth year] Universit y of 00:00:00 00:00:00 [facility] Smoking Status Start Date Stop Date Source Former smoker 2021-07-01 00:00:00 2021-07-01 00:00:00 Universi ty of [facility] Medications Ordered Filled Start Stop Current Ordering Indication Dosage Frequency Signature Comments Components Source Medication Medication Date Date Medication? Clinician (SIG) Name Name medroxyPROG 2020-07- Yes [id number] 150mg Univers ESTERone 06-02 ity of (DEPO-PROVE 20:15: 20:14 [place] RA) 00 :00 Medical injection Branch 150 mg medroxyPROG 2020-07- Yes [id number] 150mg 150 mg, Univers ESTERone 06-02 Intramuscu ity of (DEPO-PROVE 20:15: 20:14 lar, [place] [facility]) 00 :00 [id number], Medical injection 4 doses, Branch 150 mg First dose on Sun07/01/21 at 1415, Last dose on Sun03/10/22 at 1415, Routine cephALEXin 2020-07 Yes [id number] 500mg Take 1 Univers (KEFLEX) 2-29 capsule by ity o f 500 mg 00:00: mouth 3 [place] capsule 00 (three) Medical times Branch daily. naproxen Yes [id number] 250mg Take 1 Un evaristo 250 mg [...] Ordered Filled Immunization Date Status Comments [facility] Immunization Name Name HPV9 2021-07-01 Completed [facility] 00:00:00 [facility] Influenza Virus 2020-05-06 [facility] .5 mL 00:[facility]:[address] [facility] IM 6+ MO Branch TDAP 2011-10-31 Completed [facility] 00:00:00 [facility] Vital Signs Vital Name Observation Time Observation Value Comments Source Systolic blood 2021-07-01 19:55:00 129 mm[Hg] Univer sity of pressure [facility] Diastolic blood 2021-07-01 19:55:00 92 mm[Hg] Unive rsity of pressure [facility] Heart rate 2021-07-01 19:34:00 82 /min Universi ty of [facility] Body temperature 2021-07-01 19:34:00 36.17 [facility] Respiratory rate 2021-07-01 19:34:00 18 /min [facility] Body height 2021-07-01 19:34:00 154.9 cm [facility] Body weight 2021-07-01 19:34:00 60.963 kg [facility] BMI 2021-07-01 19:34:00 25.39 kg/m2 [facility] Procedures Procedure Date / Time Performed Performing Clinician Mc owen GARDASIL 9 (HPV 9V) 2021-07-01 20:10:59 Awilda Thomas [facility] Encounters Start End Encounter Admission Attending Care Care Encounter Source Date/Time Date/Time Type Type Clinicians Facility Department ID 2021-07-01 2021-07-01 Office William [facility] [id number] Univers 13:15:00 14:10:58 Visit Awilda Mendez [employer]IC[employer] [id number] nguyễn [facility] [id number] Anatoliy as MATERNAL [id number] [facility] ical & CHILD [address] [place] [address] 2021-07-01 2021-07-01 Outpatient R WILLIAM [facility] [id number] Univers 09:00:00 09:00:00 AWILDA adrian o f [facility] 2021-06-29 2021-06-29 Outpatient R ELISEO [facility] [id number] Univers 13:00:00 13:00:00 MARQUITA adrian [facility] 2021-06-28 2021-06-29 Emergency X DEYSI [facility] ERT [id number] Univers 23:27:00 04:47:00 MARY adrian [facility] 2020-11-01 2020-11-01 Emergency Schnstein TRAUMA [id number] 22:05:00 22:06:00 , Keshia OBERLIN [id number] 2020-11-01 2020-11-01 Emergency Lily Key [facility] [id number] 17:05:00 20:46:00 Ayana Martin [id number] [place] [id number] [place] [id number] 2020-11-01 2020-11-01 Office Rambo ORCONSTANTIN [id number] 13:58:16 14:28:58 Visit Anna Rodríguez [employer] OFFICER [id number] [facility] [id number] MATERNAL [id number] & CHILD [address] [place] [address] Results Test Description Test Time Test Comments Results Result Comments Source COMPREHENSIVE METABOLIC PANEL 2021-08-19 04:03:56 Test Item Value Reference Range Interpretation Comme nts GLUCOSE (test code = 2217) 101 MG/DL 70-99 H BUN (test code = 2208) 10 MG/DL 6-20 CREATININE (test code = 0.75 MG/DL 0.60-1.30 2213) eGFR (2020 CKD-EPI) (test 106 ML/MIN/1.73 >60 code = 52238) CALC BUN/CREAT (test code = 13 RATIO 12-27) SODIUM (test code = 2231) 141 MEQ/L 133-146 POTASSIUM (test code = 2228) 4.1 MEQ/L 3.5-5.4 CHLORIDE (test code = 2215) 103 MEQ/L 95-107 CARBON DIOXIDE (test code = 24 MEQ/L 2205) CALCIUM (test code = 2209) 10.2 MG/DL 8.5-10.5 PROTEIN, TOTAL (test code = 7.7 G/DL 6.1-8.3 2228) ALBUMIN (test code = 2201) 4.7 G/DL 3.5-5.2 CALC GLOBULIN (test code = 3.0 G/DL 1.9-3.7 2239) CALC A/G RATIO (test code = 1.6 RATIO 1.0-2.6 2233) BILIRUBIN, TOTAL (test code 1.0 MG/DL See_Comment [Automated message] The = 2206) system which ge nerated this result transmit meghan reference range : <=1.2. The reference range was not used to interpr et this result as [place] l/abnormal. ALKALINE PHOSPHATASE (test 149 U/L 40-114 H code = 2204) AST (test code = 2218) 398 U/L 9-40 H ALT (test code = 2219) 329 U/L 5-40 H HEPATITIS PANEL, [id number] 03:45:56 Test Item Value Reference Range Interpretation Comments HEPATITIS A IgM (test NON-REACTIVE NON-REACTIVE code = 95669) HEPATITIS B CORE IgM NON-REACTIVE NON-REACTIVE (test code = 4644) HEPATITIS B SURF AG NON-REACTIVE NON-REACTIVE (test code = 2739) HEPATITIS C ANTIBODY NON-REACTIVE NON-REACTIVE (test code = 4675) INTERPRETATION (NOTE) Hepatiti s A HEPATITIS A: (test serology shows no code = 2552) evidence of acu te hepatitis A. INTERPRETATION (NOTE) Hepatiti s B HEPATITIS B: (test serology shows no code = 94421) evidence of ac [place] hepatitis B and no indication of exposure to hepatitis B vir us in the previous si xto eight months. INTERPRETATION (NOTE) Hepatiti s C HEPATITIS C: (test serology shows no code = 07375) evidence of ex posure to hepatitisC v irus at this time. It can take up to 12 months after exposure tothe hepatitis C vir us for antibodies to become detectab le in the blood i n certain patient s. UNLESS OTHE RWISE INDICATED, ALL TESTING PERFORM ED ATCLINICAL PATH [facility] [place]. [address] [place] [address] [phone] 4 TIN RECOVERY WORKER: Pricila SHAIKHIA NUMBER [id number] CAP ACCREDITATION N O. [id number]
[2021-08-24] MEDS ORDERED: THIAMINE 200 MG/2 ML INJ ONE (19:35)
[2021-08-24] MEDS ORDERED: NA CHLORIDE 0.9% 2,000 ML ONE (19:36)
[2021-08-24] MEDS ORDERED: MULTIVITAMINS 10 ML VIAL (INJ) IV ONE (19:36)
[2021-08-24] MEDS ORDERED: FOLIC ACID 5 MG/ML VIAL ONE (19:38)
[2021-08-24 20:48] LABS: Absolute Lymphocytes (CBC) 2.3 K/uL (0.7-4.9); Hematocrit 46.7 % (36.0-45.0); Lymphocytes % 45.5 % (15.3-44.8); MPV 7.3 fL (7.6-11.3); RBC Red Blood Cell Count 4.35 M/uL (3.86-4.86)
[2021-08-24 20:52] LABS: Protime INR 0.94
[2021-08-24 22:19] LABS: Urine Blood 2+ (Negative); Urine Glucose Negative (Negative); Urine Protein Negative (Negative); Urine pH 6.5 (5.0-7.0)
[2021-08-24 22:27] LABS: ALT/SGPT 281 U/L (12-78); Albumin 4.1 g/dL (3.4-5.0); Alkaline Phosphatase 143 U/L (45-117); BUN Blood Urea Nitrogen 6 mg/dL (7-18); Bicarbonate 24 mmol/L (21-32); Bilirubin Direct 0.1 mg/dL (0-0.2); Bilirubin Total 0.4 mg/dL (0.2-1.0); Glucose Level 137 mg/dL (74-106); Potassium 3.5 mmol/L (3.5-5.1); Protein, Total 8.5 g/dL (6.4-8.2); Sodium Level 142 mmol/L (136-145)
[2021-08-24 22:29] LABS: AST/SGOT 326 U/L (15-37)
[2021-08-24 22:34] LABS: Blood Morphology Comment NOTED (NOT SEEN); Macrocytosis 1+; Platelet Estimate ADEQ; White Blood Cell Scan OK (OK)
[2021-08-24 23:10] LABS: Barbiturates NEGATIVE (NEGATIVE); Benzodiazepines NEGATIVE (NEGATIVE); Cocaine NEGATIVE (NEGATIVE); METHAMPHETAM NEGATIVE (NEGATIVE); Methadone NEGATIVE (NEGATIVE); Opiates NEGATIVE (NEGATIVE); Phencyclidine NEGATIVE (NEGATIVE); THC Cannibis POSITIVE (NEGATIVE)
[2021-08-25] MEDS ORDERED: DIAZEPAM 5 MG TABLET ONE (10:08)
--- NOTE | 2021-08-25 15:18 | ER ---
Nurse's Notes [facility] Name: Sylvia Cruz Age: 36 yrs Sex: Female : 1985 Arrival Date: 08/24/2021 Time: 19:00 Bed 19 Private MD: Diagnosis: Other recurrent depressive disorders;Alcohol abuse Presentation: 08/24 19:12 Chief complaint: EMS states: [facility] CALLED BY PSYCHIATRIST FOR SI. PT DENIES SI, ENDORSES bp RECENT SI WITHOUT ACTION/PLAN. CHRONIC ETOH-ISM, LAST DRINK THIS AM 0900. Coronavirus screen: At this time, the client does not indicate any symptoms associated with coronavirus-19. Ebola Screen: No symptoms or risks identified at this time. Initial Sepsis Screen: Does the patient meet any 2 criteria? No. Patient's initial sepsis screen is negative. Does the patient have a suspected source of infection? No. Patient's initial sepsis screen is negative. Risk Assessment: Do you want to hurt yourself or someone else? Other: UNRELIABLE HISTORIAN. Onset of symptoms is unknown. Care prior to arrival: Medication(s) given: 2 MG ATIVAN, 4 MG ZOFRAN, 200 ML NS IV initiated. 20 GA, in the right antecubital area. 19:12 Method Of Arrival: EMS: [facility] bp 19:12 Acuity: BONITA 2 bp 19:15 Note TOMAS BY KEN. bp Triage Assessment: 19:15 General: Appears distressed, Behavior is cooperative, appropriate for age, anxious. bp Pain: Denies pain. EENT: No deficits noted. Neuro: Level of Consciousness is awake, alert, obeys commands, Oriented to person, place, time, situation, Appropriate for age. Cardiovascular: No deficits noted. Respiratory: No deficits noted. GI: No signs and/or symptoms were reported involving the gastrointestinal system. : No signs and/or symptoms were reported regarding the genitourinary system. Derm: Wound noted Other: SUPERFICIAL LACS TO L FOREARM. Musculoskeletal: No deficits noted. Historical: - Allergies: 19:15 No Known Allergies; bp - PMHx: 19:15 Bipolar disorder; Depression; Hypertension; Alcoholism; Cirrhosis of liver; bp - Immunization history:: Adult Immunizations not up to date. - Social history:: Smoking status: unknown. Screenin:17 Abuse screen: Denies threats or abuse. Denies injuries from another. Nutritional bp screening: No deficits noted. Tuberculosis screening: No symptoms or risk factors identified. Fall Risk None identified. Assessment: 19:17 General: SEE TRIAGE NOTE. bp 19:30 General: Appears in no apparent distress. uncomfortable, Behavior is agitated, anxious, al4 restless. Pain: Denies pain. Pain: Complains of pain in head. Neuro: Neuro: Level of Consciousness is awake, alert, obeys commands, Oriented to person, place, time, situation. Cardiovascular: Capillary refill < 3 seconds Patient's skin is warm and dry. Respiratory: Airway is patent Respiratory effort is even, unlabored, Respiratory pattern is regular, symmetrical. GI: No signs and/or symptoms were reported involving the gastrointestinal system. : No signs and/or symptoms were reported regarding the genitourinary system. EENT: No signs and/or symptoms were reported regarding the EENT system. Derm: superficial lacerations to L arm. Musculoskeletal: Range of motion: intact in all extremities. 20:30 Reassessment: Patient is alert, oriented x 3, equal unlabored respirations, skin al4 warm/dry/pink. 21:30 Reassessment: Patient is alert, oriented x 3, equal unlabored respirations, skin al4 warm/dry/pink. 22:30 Reassessment: patient is sleeping. patient is in no apparent distress. . al4 23:30 Reassessment: patient is sleeping. patient is in no apparent distress. al4 08/25 00:32 Reassessment: Patient is alert, oriented x 3, equal unlabored respirations, skin al4 warm/dry/pink. 01:00 Reassessment: Report given to SARAHI Estes. al4 07:35 Reassessment: Pt sleeping at this time. NAD noted. Pt has not been interviewed at this 6 time. 10:13 Reassessment: Patient is alert, oriented x 3, equal unlabored respirations, skin jh6 warm/dry/pink. General: Behavior is anxious, states that she is having shakiness due to withdraw from ETOH. has apt for admission to detox center tomorrow. 12:20 Reassessment: Patient is alert, oriented x 3, equal unlabored respirations, skin jh6 warm/dry/pink. pt reporting that she is feeling better after Valium and is not having the shakes like before. Patient states feeling better. 15:00 Reassessment: Patient is alert, oriented x 3, equal unlabored respirations, skin jh6 warm/dry/pink. mother at bedside, as well as PACKAGE DYER Page. speaking with pt about d/c and follow up care. pt alert calm and coopertive. Psych: 08/24 19:30 [place] Suicide Severity Screening: In the past month, have you wished you were al4 or wished you could go to sleep and not wake up? Patient responds "yes." Based off the client's responses additional C-SSRS screening is required. "In the past month, have you actually had any thoughts of killing yourself?" Patient responds "yes." "In your lifetime, have you ever done anything, started to do anything, or prepared to do anything to end your life?" Patient responds "yes." Patient reports suicidal intent within 3 past months. Subjective: Patient's mood is sad, angry, Having thoughts of suicide. Plan for suicide is overdose on alcohol consumption. Objective: Patient is cooperative, restless. Interventions: Removed personal items and placed in bag. Patient placed in hospital gown. Searched person for dangerous items. Urine collected and sent for urine drug test. Belonging list filled out. Safety Checks: Personal items have been removed. Door is open. No visitors are present at this time. Patient uses of liquor, daily. Vital Signs: 19:12 BP 125 / 90; Pulse 92; Resp 19; Temp 98; Pulse Ox 100% ; bp 08/25 00:23 BP 106 / 76; Pulse 96; Resp 18; Temp 98.1; Pulse Ox 97% on R/A; al4 05:27 BP 127 / 92; Pulse 105; Resp 18; Pulse Ox 96% on R/A; sf1 07:20 BP 136 / 84; Pulse 88; Resp 18; Pulse Ox 100% ; Pain 3/10; jh6 15:30 BP 140 / 83; Pulse 80; Resp 20; Pulse Ox 99% ; Pain 0/10; jh6 ED Course: 08/24 19:00 Patient arrived in ED. mw2 19:08 Carlito Santos, SARAHI is Primary Nurse. bp 19:09 Lakhwinder Bills PA is PHCP. cp 19:09 Sanjeev Cummings MD is Attending Physician. cp 19:14 Triage completed. bp 19:15 Arm band placed on. bp 19:17 Patient has correct armband on for positive identification. Bed in low position. Call bp light in reach. Side rails up X2. 19:17 Maintain EMS IV. Dressing intact. Good blood return noted. Site clean \\T\\ dry. Gauge \\T\\ bp site: 20 GAUGE R AC. 19:30 Appears restless. Safety Checks: Personal items have been removed. The door is open or al4 patient has been placed in a hallway bed/chair. Sitter not present at this time Note: charge entry specialist aware. 20:00 No apparent distress. Appears restless. Safety Checks: The door is open or patient has al4 been placed in a hallway bed/chair. Sitter not present at this time. 20:30 No apparent distress. Resting quietly. Safety Checks: The door is open or patient has al4 been placed in a hallway bed/chair. Sitter not present at this time. 21:00 No apparent distress. Resting quietly. Safety Checks: The door is open or patient has al4 been placed in a hallway bed/chair. Sitter not present at this time. 21:30 No apparent distress. Resting quietly. Safety Checks: The door is open or patient has al4 been placed in a hallway bed/chair. Sitter not present at this time. 22:00 No apparent distress. Resting quietly. Safety Checks: The door is open or patient has al4 been placed in a hallway bed/chair. Sitter not present at this time. 22:19 COVID-19 SARS RT PCR (Document "Date of Onset" if Symptomatic) Sent. al4 22:30 No apparent distress. Appears to be sleeping. Safety Checks: The door is open or al4 patient has been placed in a hallway bed/chair. Sitter present at this time. 22:30 Notified Nurse Practitioner and/or Physician Sales Representative Groceries of a critical lab result(s), AST bb of 326. Lakhwinder NIETO notified. 08/25 00:38 Acetaminophen Sent. al4 00:38 Basic Metabolic Panel Sent. al4 05:27 ETOH Level Sent. sf1 06:17 Contacted [facility] line spoke to Adriane to have a screener evaluate the mw2 patient. 08:00 [facility] screener called to set up Facetime screening session; all clinical em1 information faxed to the [facility]. 15:31 IV discontinued, intact, bleeding controlled, No redness/swelling at site. Pressure 6 dressing applied. Administered Medications: 08/24 19:55 Drug: Banana Bag - (NS 0.9% 1000 ml, foLIC Acid 1 mg, Thiamine 100 mg, Multivitamin 1 al4 amp) Route: IV; Rate: 125 ml/hr; Site: right antecubital; 20:26 Drug: NS 0.9% 1000 ml Route: IV; Rate: 1 bolus; Site: left antecubital; al4 22:22 Follow up: IV Status: Completed infusion al4 08/25 10:13 Drug: Valium (diazepam) 5 mg Route: PO; [facility] 11:48 Follow up: Response: Anxiety decreased [facility] Outcome: 15:17 Discharge ordered by MD. cp 15:30 Discharged to home ambulatory. [facility] 15:30 Condition: improved 15:30 Discharge instructions given to patient, family, Instructed on discharge instructions, follow up and referral plans. Demonstrated understanding of instructions, follow-up care. 16:07 Patient left the ED. [facility] Signatures: Lucina Gonzalez RN RN Margarito Yanez em1 Lakhwinder Bills PA PA cp Carlito Santos, RN RN Gabriella Gray 2 Sita Glover RN RN 6 Jenaro Barone [facility] Meera Daily RN RN sf1 Corrections: (The following items were deleted from the chart) 08/24 21:52 19:30 Derm: No signs and/or symptoms reported regarding the dermatologic system. al4 al4 23:50 22:30 No apparent distress. Resting quietly. al4 al4 23:50 22:30 Reassessment: Patient is alert, oriented x 3, equal unlabored respirations, skin al4 warm/dry/pink. al4 23:50 23:30 Reassessment: Patient is alert, oriented x 3, equal unlabored respirations, skin al4 warm/dry/pink. al4 08/25 00:32 00:23 BP 106 / 76; Pulse 96bpm; Resp 18bpm; Pulse Ox 97% RA; al4 al4
--- NOTE | 2021-08-25 15:18 | EDPHYS ---
Physician Documentation [facility] Name: Sylvia Cruz Age: 36 yrs Sex: Female : 1985 Arrival Date: 08/24/2021 Time: 19:00 Bed 19 Private MD: ED Physician Sanjeev Cummings HPI: 08/24 19:30 This 36 yrs old Female presents to ER via EMS with complaints of Depression. cp 19:30 The patient presents to the emergency department with depression, a history of cp substance abuse, Type: whisky. Past psychiatric history: Prior diagnosis: bipolar disorder, depression. Associated signs and symptoms: The patient has no apparent associated signs or symptoms. Historical: - Allergies: 19:15 No Known Allergies; bp - PMHx: 19:15 Bipolar disorder; Depression; Hypertension; Alcoholism; Cirrhosis of liver; bp - Immunization history:: Adult Immunizations not up to date. - Social history:: Smoking status: unknown. ROS: 19:35 Constitutional: Negative for body aches, chills, fever, poor PO intake. cp 19:35 Eyes: Negative for injury, pain, redness, and discharge. cp 19:35 Cardiovascular: Negative for chest pain, palpitations. 19:35 Respiratory: Negative for cough, shortness of breath, wheezing. 19:35 Abdomen/GI: Negative for abdominal pain, vomiting, diarrhea, constipation. 19:35 Neuro: Negative for altered mental status, headache, weakness. 19:35 Psych: Positive for depression, alcohol dependence. 19:35 All other systems are negative. Exam: 19:40 Head/Face: Normocephalic, atraumatic. cp 19:40 Constitutional: The patient appears in no acute distress, alert, awake, non-toxic, well developed, well nourished. 19:40 Eyes: Periorbital structures: appear normal, Conjunctiva: normal, no exudate, no injection, Sclera: no appreciated abnormality, Lids and lashes: appear normal, bilaterally. 19:40 ENT: External ear(s): are unremarkable, Nose: is normal, Mouth: Lips: moist, Oral mucosa: moist, Posterior pharynx: Airway: no evidence of obstruction, patent. 19:40 Neck: ROM/movement: is normal, is supple, without pain, no range of motions limitations. 19:40 Chest/axilla: Inspection: normal. 19:40 Cardiovascular: Rate: normal, Rhythm: regular. 19:40 Respiratory: the patient does not display signs of respiratory distress, Respirations: normal, no use of accessory muscles, no retractions, labored breathing, is not present, Breath sounds: are clear throughout, no decreased breath sounds. 19:40 Abdomen/GI: Exam negative for discomfort, distension, guarding, Inspection: abdomen appears normal. 19:40 Neuro: Orientation: to person, place \\T\\ time. Mentation: able to follow commands, Motor: moves all fours. 19:40 Psych: Behavior/mood is cooperative, Affect is calm, Judgement / Insight is impaired. 19:50 ECG was reviewed by the Attending Physician. cp Vital Signs: 19:12 BP 125 / 90; Pulse 92; Resp 19; Temp 98; Pulse Ox 100% ; bp 08/25 00:23 BP 106 / 76; Pulse 96; Resp 18; Temp 98.1; Pulse Ox 97% on R/A; al4 05:27 BP 127 / 92; Pulse 105; Resp 18; Pulse Ox 96% on R/A; sf1 07:20 BP 136 / 84; Pulse 88; Resp 18; Pulse Ox 100% ; Pain 3/10; jh6 15:30 BP 140 / 83; Pulse 80; Resp 20; Pulse Ox 99% ; Pain 0/10; jh6 MDM: 08/24 19:10 Patient medically screened. cp 08/25 06:13 ED course: ETOH negative now, calling [facility] out for evaluation.. rn 15:10 Data reviewed: vital signs, nurses notes, lab test result(s), EKG. ED course: cp Reevaluation: Patient appears in no acute distress. Patient denies any thoughts of suicide at this time. Lives with mom who will provide support. Will discharge to home for continued monitoring. 08/24 19: Order name: Acetaminophen cp 08/24 19:22 Order name: Basic Metabolic Panel cp 08/24 18: Order name: CBC with Diff; Complete Time: 23:18 cp 08/24 23:18 Interpretation: Normal except: HGB 15.7; HCT 46.7; MCV 107.4; MCH 36.1; MPV 7.3; LYM% cp 45.5. 08/24 19: Order name: ETOH Level; Complete Time: 23:18 cp 08/24 23:18 Interpretation: Abnormal: ETOH 275. 08/24 19:22 Order name: Hepatic Function; Complete Time: 23:18 08/24 23:18 Interpretation: Normal except: AST 326; ALT 281; ALK 143; TP 8.5; GLOB 4.4; A/G 0.9. 08/24 19:22 Order name: PT-INR; Complete Time: 23:18 08/24 19:22 Order name: Ptt, Activated; Complete Time: 23:18 08/24 19:22 Order name: Salicylate; Complete Time: 23:18 08/24 19:22 Order name: Urine Drug Screen; Complete Time: 23:18 08/24 19:23 Order name: Acetaminophen Level; Complete Time: 23:18 EDW[facility] 08/24 19:23 Order name: Basic Metabolic Panel; Complete Time: 23:18 [facility] 08/24 19:36 Order name: COVID-19 SARS RT PCR (Document "Date of Onset" if Symptomatic) [facility] 08/24 19:36 Order name: SARS-COV-2 RT PCR; Complete Time: 01:22 EDW[facility] 08/24 20:50 Order name: CBC Smear Scan; Complete Time: 23:18 EDW[facility] 08/24 19:22 Order name: EKG; Complete Time: 19:23 08/24 19:22 Order name: EKG - Nurse/Tech; Complete Time: 19:58 08/24 19:22 Order name: IV Saline Lock; Complete Time: 20:26 08/24 19:22 Order name: Labs collected and sent; Complete Time: 20:26 08/24 19:22 Order name: Suicide Precautions; Complete Time: 21:50 08/24 19:22 Order name: Suicide Screening ([place]); Complete Time: 19:58 08/24 19:22 Order name: Urine Dipstick-Ancillary (obtain specimen); Complete Time: 22:19 08/24 19:22 Order name: Urine Test (obtain specimen); Complete Time: 22:19 08/24 22:18 Order name: Urine Dipstick-Ancillary; Complete Time: 23:18 EDWY 08/24 22:26 Order name: Urine --Ancillary (enter results); Complete Time: 23:18 [facility] 08/25 02:18 Order name: ETOH Level; Complete Time: 06:13 cp 08/25 07:02 Order name: Diet Finger Food; Complete Time: 07:02 mw2 EC/23 19:50 Rate is 91 beats/min. Rhythm is regular. [place] interval is normal. QRS interval is normal. cp QT interval is normal. T waves are Inverted in lead aVR. Interpreted by me. Reviewed by me. Administered Medications: 19:55 Drug: Banana Bag - (NS 0.9% 1000 ml, foLIC Acid 1 mg, Thiamine 100 mg, Multivitamin 1 al4 amp) Route: IV; Rate: 125 ml/hr; Site: right antecubital; 20:26 Drug: NS 0.9% 1000 ml Route: IV; Rate: 1 bolus; Site: left antecubital; al4 22:22 Follow up: IV Status: Completed infusion al4 08/25 10:13 Drug: Valium (diazepam) 5 mg Route: PO; [facility] 11:48 Follow up: Response: Anxiety decreased [facility] Disposition: 19:01 Co-signature as Attending Physician, Sanjeev Cummings MD. rn Disposition Summary: 08/25/21 15:17 Discharge Ordered Location: Home cp Problem: an ongoing problem cp Symptoms: have improved cp Condition: Stable cp Diagnosis - Other recurrent depressive disorders cp - Alcohol abuse cp Followup: cp - With: Private Physician - When: 1 - 2 days - Reason: Recheck today's complaints Discharge Instructions: - Discharge Summary Sheet cp - Alcohol Withdrawal Syndrome cp - Alcohol Use Disorder cp - Alcohol Abuse and Nutrition cp - Managing Depression, Adult cp Forms: - Medication Reconciliation Form cp - Thank You Letter cp - Antibiotic Education cp - Prescription Opioid Use cp Signatures: Dispatcher [employer] EDMS Sanjeev Cummings MD MD rn Page, Corey, PA PA cp Carlito Santos RN RN Sita Vaughn RN RN [facility] Jenaro Barone [facility] Corrections: (The following items were deleted from the chart) 08/24 23:21 23:19 This 36 yrs old Female presents to ER via EMS with complaints of cp Depression. cp 08/25 01:30 01:27 Eyes: Periorbital structures: appear normal, Conjunctiva: normal, no exudate, no cp injection, Sclera: no appreciated abnormality, Lids and lashes: appear normal, bilaterally, cp 01:32 01:27 Constitutional: The patient appears in no acute distress, alert, awake, cp non-toxic, well developed, well nourished, cp : Head/Face: Normocephalic, atraumatic. cp cp : ENT: External ear(s): are unremarkable, Nose: is normal, Mouth: Lips: moist, Oral cp mucosa: moist, Posterior pharynx: Airway: no evidence of obstruction, patent, cp : Neck: ROM/movement: is normal, is supple, without pain, no range of motions cp limitations, cp : Chest/axilla: Inspection: normal, cp cp : Cardiovascular: Rate: normal, Rhythm: regular, cp cp : Respiratory: the patient does not display signs of respiratory distress, cp Respirations: normal, no use of accessory muscles, no retractions, labored breathing, is not present, Breath sounds: are clear throughout, no decreased breath sounds, cp : Abdomen/GI: Exam negative for discomfort, distension, guarding, Inspection: cp abdomen appears normal, cp : Neuro: Orientation: to person, place \\T\\ time. Mentation: able to follow commands, cp Motor: moves all fours, cp : Psych: Behavior/mood is cooperative, Affect is calm, Judgement / Insight is cp impaired. cp : Eyes: Periorbital structures: appear normal, Conjunctiva: normal, no exudate, no cp injection, Sclera: no appreciated abnormality, Lids and lashes: appear normal, bilaterally, cp
[2021-08-25 16:56] VITALS: TEMP 98.1
[2021-08-25 17:00] VITALS: BP 140/83; O2SAT 99
== END 2021-08-25 16:07 | disposition home or self-care (01) ==
LOC: ER 18:57
DX: F33.8 Other recurrent depressive disorders (principal); F10.20 Alcohol dependence, uncomplicated; Z20.822 Contact with and (suspected) exposure to COVID-19
CPT/HCPCS: 96361; 85025; 80048; 36415; 80320 ×2; 80329 ×2; 81025; 85610; 80076; 85730; 81003; 80307; 96374; 99284; U0003; J3411; J7030

== ENCOUNTER 2021-09-26 00:39 | Emergency (ER) | payer OTHER ==
--- OUTSIDE RECORDS SUMMARY | 2021-09-26 00:43 | XMS REPORT | Continuity of Care Document ---
:1985 Author Organization [facility] t Address [address] [place] [address] Care Team Providers Name Role Phone ANNA GAUERO Primary Care Physician Unavailable Anne AGUERO Attending Clinician Unavailable Visit, Nurse Attending Clinician Unavailable Laci CENTRAL OFFICE OPERATOR, R Attending Clinician William MONIQUEP, C Attending Clinician Andrea THOMAS Attending Clinician Unavailable Ann Marie GOMES Attending Clinician Unavailable DEYSI Attending Clinician Unavailable Lucía BLUM Attending Clinician Ayana Alvarez Attending Clinician DEYSI Admitting Clinician Unavailable Payers Payer Name Policy Type Policy Number Effective Date Expiration Date Huy lau [facility] [id number] 2017 00:00:00 Problems Condition Condition Condition Status Onset Resolution Last Treating Co mments Source Name Details Category Date Date Treatment Clinician Date Pelvic Pelvic Disease Active Univers pain pain 2-09 ity of 00:00: [address] Encounter Encounter Disease Active Uni vers for for 4-16 [place] Medical progestin- progestin- Br anch only only injected injected contracept contracept jacob jacob Irregular Irregular Disease Active Uni vers menses menses 8-02 ity of 00:00: [address] Well woman Well woman Disease Active U nivers exam exam 10-06 ity of 00:00: [place] 00 [facility] [place] Mollusca Mollusca Disease Active Unive rs contagiosa contagiosa 10-06 it y of 00:00: [place] 00 [facility] [place] Tobacco Tobacco Disease Active Univers use use 10-06 ity of disorder disorder 00:00: [place] 00 [facility] Contracept Contracept Disease Active U nivers jacob jacob 1 [place] [address] [place] [address] Allergies, Adverse Reactions, Alerts Allergy Allergy Status Severity Reaction(s) Onset Inactive Treating Comm ents Source Name Type Date Date Clinician NO KNOWN Drug Active Univers ALLERGIE Class ity of S [facility] Social History Social Habit Start Date Stop Date Quantity Comments Source Exposure to Not sure [facility] SARS-CoV-2 (event) [facility] History SDVT University o f [facility] History SDOH University o f Alcohol Std Drinks [facility] History [facility] o f Alcohol Binge [facility] al Branch History of tobacco Cigarette Smoker University of use [facility] Alcohol intake 2021-08-31 2021-08-31 Ex-drinker University of 00:00:00 00:00:00 (finding) [facility] Tobacco use and 2021-07-01 2021-07-01 Never used Universit y of exposure 00:00:00 00:00:00 [facility] Cigarettes smoked 2021-07-01 2021-07-01 Univers ity of current (pack per 00:00:00 00:00:00 [facility] ) - Reported Branch Cigarette 2021-07-01 2021-07-01 University of pack-years 00:00:00 00:00:00 [facility] Tobacco Comment 2012-10-03 2012-10-03 states only Universi ty of 00:00:00 00:00:00 smokes on [facility] Alcohol Comment 2012-10-03 2012-10-03 socially Universit y of 00:00:00 00:00:00 [facility] Sex Ass[birth year] Universit y of 00:00:00 00:00:00 [facility] Smoking Status Start Date Stop Date Source Former smoker 2021-07-01 00:00:00 2021-07-01 00:00:00 [facility] Medical Branch Medications Ordered Filled Start Stop Current Ordering Indication Dosage Frequency Signature Comments Components Source Medication Medication Date Date Medication? Clinician (SIG) Name Name medroxyPROG 2020-07- Yes [id number] 150mg Univers ESTERone 06-02 ity of (DEPO-PROVE 20:15: 20:14 [facility]) 00 :00 Medical injection Branch 150 mg medroxyPROG 2020-07- Yes [id number] 150mg 150 mg, Univers ESTERone 06-02 Intramuscu ity of (DEPO-PROVE 20:15: 20:14 lar, [facility]) 00 :00 [id number], Medical injection 4 doses, Branch 150 mg First dose on Sun07/01/21 at 1415, Last dose on Sun03/10/22 at 1415, Routine medroxyPROG 2020-07- Yes [id number] 150mg Univers ESTERone 06-02 ity of (DEPO-PROVE 20:15: 20:14 [facility]) 00 :00 Medical injection Branch 150 mg cephALEXin 2020-07 Yes [id number] 500mg Take 1 Univers (KEFLEX) 2-29 capsule by ity o f 500 mg 00:00: mouth 3 [place] capsule 00 (three) Medical times Branch daily. cephALEXin 2020-07 Yes [id number] 500mg Take 1 Univers (KEFLEX) 2-29 capsule by ity o f 500 mg 00:00: mouth 3 [place] capsule 00 (three) Medical times Branch daily. naproxen Yes [id number] 250mg Take 1 Un evaristo 250 mg 2-09 tablet by ity of tablet 00:00: mouth [place] 00 every 8 Medical (eight) Branch hours as needed for Pain (scale 4-6). Take 500mg followed by 250mg every 6-8 hours naproxen Yes [id number] 250mg Take 1 Un evaristo 250 mg [...] Immunizations Ordered Filled Immunization Date Status Comments [facility] e Immunization Name Name HPV9 2021-08-31 Completed University of 00:00:00 [facility] HPV9 2021-07-01 Completed University 00:00:00 [facility] HPV9 2021-07-01 Completed University 00:00:00 [facility] Influenza Virus 2020-05-06 Completed Universit y of Vaccine Quad .5 mL 00:00:00 [facility] 6+ MO Branch Influenza Virus 2020-05-06 Completed Universit y of Vaccine Quad .5 mL 00:00:00 [facility] 6+ MO Branch TDAP 2011-10-31 Completed University 00:00:00 [facility] TDAP 2011-10-31 Completed University 00:00:00 [facility] Vital Signs Vital Name Observation Time Observation Value Comments Source Systolic blood 2021-08-31 18:58:00 111 mm[Hg] [facility]astolic blood 2021-08-31 18:58:00 71 mm[Hg] Unive [facility] Heart rate 2021-08-31 18:58:00 82 /min [facility] Body temperature 2021-08-31 18:58:00 36.17 Sushma [facility] Respiratory rate 2021-08-31 18:58:00 16 /min [facility] Body height 2021-08-31 18:58:00 154.9 cm [facility] Body weight 2021-08-31 18:58:00 61.236 kg [facility] BMI 2021-08-31 18:58:00 25.51 kg/m2 [facility] Systolic blood 2021-07-01 19:55:00 129 mm[Hg] Univer [facility] Diastolic blood 2021-07-01 19:55:00 92 mm[Hg] Unive rsity pressure [facility] Heart rate 2021-07-01 19:34:00 82 /min [facility] Body temperature 2021-07-01 19:34:00 36.17 Sushma [facility] Respiratory rate 2021-07-01 19:34:00 18 /min [facility] Body height 2021-07-01 19:34:00 154.9 cm [facility] Body weight 2021-07-01 19:34:00 60.963 kg [facility] BMI 2021-07-01 19:34:00 25.39 kg/m2 [facility] Procedures Procedure Date / Time Performed Performing Clinician Mc owen GARDASIL 9 (HPV 9V) 2021-08-31 19:03:43 [facility] (HPV 9V) 2021-07-01 20:10:59 [facility] En[facility]ters Start End Encounter Admission Attending Care Care Encounter Source Date/Time Date/Time Type Type Clinicians Facility Department ID 2021-12-30 2021-12-30 Outpatient R [facility] [id number] Univers 13:00:00 13:00:00 [id number] [facility] 2021-12-30 2021-12-30 Outpatient R [facility] [id number] Univers 13:00[facility]00 [facility] 2021-09-23 2021-09-23 Outpatient R LACI [facility] [id number] Univers 13:00:00 13:00:00 ANNA morsey o f [facility] 2021-08-31 2021-08-31 Outpatient R LACI [facility] [id number] Univers 13:30:00 13:30:00 KIMBERLYA ity o f [facility] 2021-08-31 2021-08-31 Nurse Visit, Jarocho-Rmchp Nurse [facility] [id number] Univers 13:30:00 13:30:00 Visit Anna Aguero R WAD LUBRICATOR [id number] ity of [facility] [id number] Anatoliy as MATERNAL [id number] [facility] & CHILD [address] [place] [address] 2021-07-01 2021-07-01 [facility] [id number] Univers 13:15:00 14:10:58 Visit Awilda Andrea WAD LUBRICATOR [id number] ity [facility] [id number] Anatoliy as MATERNAL [id number] [facility] & CHILD [address] [place] [address] 2021-07-01 2021-07-01 [facility] [id number] Univers 09:00:00 09:00:00 AWILDA adrian o f [facility] 2021-06-29 2021-06-29 [facility] [id number] Univers 13:00:00 13:00:00 MARQUITA [facility] 2021-06-28 2021-06-29 [facility] [id number] Univers 23:27:00 04:47:00 MARY [facility] 2020-11-01 2020-11-01 Emergency [facility] TRAUMA [id number] 22:05:00 22:06:00 , [facility] [id number] 2020-11-01 2020-11-01 Emergency [place] [facility] [id number] 17:05:00 20:46:00 Ayana Martin [id number] [place] [id number] [place] [id number] 2020-11-01 2020-11-01 [facility] [id number] 13:58:16 14:28:58 Visit Anna Anne WAD LUBRICATOR [id number] REGIONAL [id number] MATERNAL [id number] & CHILD [address] [place] [address] Results Test Description Test Time Test Comments Results Result Comments Source COMPREHENSIVE METABOLIC PANEL 2021-08-19 04:03:56 Test Item Value Reference Range Interpretation Comme nts GLUCOSE (test code = 2217) 101 MG/DL 70-99 H BUN (test code = 220) 10 MG/DL 6-20 CREATININE (test code = 0.75 MG/DL 0.60-1.30 2213) eGFR (2020 CKD-EPI) (test 106 ML/MIN/1.73 >60 code = 79566) CALC BUN/CREAT (test code = 13 RATIO -28 2234) SODIUM (test code = 223) 141 MEQ/L 133-146 POTASSIUM (test code = 2228) 4.1 MEQ/L 3.5-5.4 CHLORIDE (test code = 221) 103 MEQ/L 95-107 CARBON DIOXIDE (test code = 24 MEQ/L -2205) CALCIUM (test code = 220) 10.2 MG/DL 8.5-10.5 PROTEIN, TOTAL (test code = 7.7 G/DL 6.1-8.3 2228) ALBUMIN (test code = 2200) 4.7 G/DL 3.5-5.2 CALC GLOBULIN (test code [...] 2219) 329 U/L 5-40 H HEPATITIS PANEL, [id number] 03:45:56 Test Item Value Reference Range Interpretation Comments HEPATITIS A IgM (test NON-REACTIVE NON-REACTIVE code = 12857) HEPATITIS B CORE IgM NON-REACTIVE NON-REACTIVE (test code = 4644) HEPATITIS B SURF AG NON-REACTIVE NON-REACTIVE (test code = 2739) HEPATITIS C ANTIBODY NON-REACTIVE NON-REACTIVE (test code = 4675) INTERPRETATION (NOTE) Hepatiti s A HEPATITIS A: (test serology shows no code = 2552) evidence of acu te hepatitis A. INTERPRETATION (NOTE) Hepatiti s B HEPATITIS B: (test serology shows no code = 46069) evidence of ac match-e-[employer]-n[place]-she[place]w[employer] band hepatitis B and no indication of exposure to hepatitis B vir us in the previous si xto eight months. INTERPRETATION (NOTE) Hepatiti s C HEPATITIS C: (test serology shows no code = 87968) evidence of ex posure to hepatitisC v irus at this time. It can take up to 12 months after exposure tothe hepatitis C vir us for antibodies to become detectab le in the blood i n certain patient s. UNLESS OTHE RWISE INDICATED, ALL TESTING PERFORM [facility], I MA. [address] [place] [address], [place] [id number] PUNCH MACHINE HAND: SUNNY ROWE M.D. PATRICIAIA NUMBER [id number] CAP ACCREDITATION N O. [id number]
[2021-09-26 01:41] LABS: Absolute Lymphocytes (CBC) 2.7 K/uL (0.7-4.9); Hematocrit 44.1 % (36.0-45.0); Lymphocytes % 45.9 % (15.3-44.8); MPV 7.6 fL (7.6-11.3); Protime INR 0.97; RBC Red Blood Cell Count 4.19 M/uL (3.86-4.86)
[2021-09-26 01:42] LABS: Urine Blood 2+ (Negative); Urine Glucose Negative (Negative); Urine Protein Negative (Negative); Urine Specific Gravity 1.015 (1.005-1.030)
[2021-09-26 01:55] LABS: ALT/SGPT 197 U/L (12-78); AST/SGOT 203 U/L (15-37); Albumin 3.9 g/dL (3.4-5.0); Alkaline Phosphatase 137 U/L (45-117); BUN Blood Urea Nitrogen 8 mg/dL (7-18); Bicarbonate 25 mmol/L (21-32); Bilirubin Direct 0.1 mg/dL (0-0.2); Bilirubin Total 0.3 mg/dL (0.2-1.0); Glucose Level 113 mg/dL (74-106); Lipase 138 U/L (73-393); Magnesium 2.2 mg/dL (1.8-2.4); NT PRO-BNP 31 pg/mL (<125); Potassium 3.2 mmol/L (3.5-5.1); Protein, Total 8.1 g/dL (6.4-8.2); Sodium Level 144 mmol/L (136-145)
[2021-09-26] MEDS ORDERED: ONDANSETRON 4 MG/2 ML VIAL ONE (01:56)
[2021-09-26] MEDS ORDERED: THIAMINE 200 MG/2 ML INJ ONE (01:56)
[2021-09-26] MEDS ORDERED: NA CHLORIDE 0.9% 1,000 ML ONE (01:56)
[2021-09-26] MEDS ORDERED: KETOROLAC 30 MG/ML INJ ONE (01:56)
[2021-09-26] MEDS ORDERED: MULTIVITAMINS 10 ML VIAL (INJ) IV ONE (01:56)
[2021-09-26] MEDS ORDERED: FAMOTIDINE 20 MG/2 ML VIAL IV ONE (01:56)
[2021-09-26] MEDS ORDERED: FOLIC ACID 5 MG/ML VIAL ONE (01:58)
[2021-09-26 02:07] LABS: Troponin High Sensitivity < 3.0 pg/mL (<58.9)
[2021-09-26 02:45] LABS: Blood Morphology Comment NOTED (NOT SEEN); Macrocytosis 1+; Platelet Estimate ADEQ; White Blood Cell Scan OK (OK)
--- NOTE | 2021-09-26 04:20 | EDPHYS ---
Physician Documentation [facility] Name: Sylvia Cruz Age: 36 yrs Sex: Female : 1985 Arrival Date: 09/26/2021 Time: 00:40 Bed 18 Private MD: ED Physician Matthew Carlos HPI: 09/26 01:00 This 36 yrs old Female presents to ER via Wheelchair with complaints of Chest cp Pain, Breathing Difficulty. 01:00 The patient or guardian reports chest pain that is located primarily in the anterior cp chest wall, bilaterally. 01:00 The pain does not radiate. Associated signs and symptoms: Pertinent positives: cp shortness of breath, abdominal distention, Pertinent negatives: cough, diaphoresis, headache, lower extremity pain, lower extremity swelling, syncope, vomiting. The chest pain is described as aching. Duration: The patient or guardian reports a single episode, that is still ongoing, and unchanged. Patient admits to drinking alcohol daily and reports last drink was this evening. Reports smoking marijuana last evening and concerned that marijuana contained other illegal drugs. 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 - Social history:: Smoking status: Patient reports the use of cigarette tobacco products, smokes one-half pack cigarettes per day, Patient uses alcohol, on a daily basis. street drugs, marijuana. ROS: 01:05 Constitutional: Negative for body aches, chills, fever, poor PO intake. cp 01:05 Eyes: Negative for injury, pain, redness, and discharge. cp 01:05 ENT: Negative for drainage from ear(s), ear pain, sore throat, difficulty swallowing, difficulty handling secretions. 01:05 Cardiovascular: Positive for chest pain, Negative for edema, palpitations. 01:05 Respiratory: Positive for shortness of breath, Negative for cough, wheezing. 01:05 Abdomen/GI: Positive for abdominal pain, Negative for vomiting, diarrhea, constipation. 01:05 Back: Negative for injury or acute deformity. 01:05 Skin: Negative for cellulitis, rash. 01:05 Neuro: Negative for seizure activity, syncope, weakness. 01:05 Psych: Positive for alcohol dependence, Negative for auditory hallucinations, visual hallucinations, homicidal ideation, suicide gesture, suicidal ideation. 01:05 All other systems are negative. Exam: 01:10 Constitutional: The patient appears in no acute distress, alert, awake, cp non-diaphoretic, non-toxic, well developed, well nourished, uncomfortable. 01:10 Head/Face: Normocephalic, atraumatic. cp 01:10 Eyes: Periorbital structures: appear normal, Conjunctiva: normal, no exudate, no injection, Sclera: no appreciated abnormality, Lids and lashes: appear normal, bilaterally. 01:10 ENT: External ear(s): are unremarkable, Nose: is normal, Mouth: Lips: moist, Oral mucosa: moist, Posterior pharynx: Airway: no evidence of obstruction, patent. 01:10 Neck: ROM/movement: is normal, is supple, without pain, no range of motions limitations, no nuchal rigidity. 01:10 Chest/axilla: Inspection: normal, Palpation: crepitus, is not appreciated, tenderness, that is moderate, of the anterior aspect of right upper chest, anterior aspect of left upper chest and mid-sternal area, that partially reproduces the patient's complaints. 01:10 Cardiovascular: Rate: tachycardic, Rhythm: regular, Edema: is not appreciated, JVD: is not appreciated. 01:10 Respiratory: the patient does not display signs of respiratory distress, Respirations: normal, no use of accessory muscles, no retractions, labored breathing, is not present, Breath sounds: are clear throughout, no decreased breath sounds, no stridor, no wheezing. 01:10 Abdomen/GI: Inspection: distension, that is mild, Bowel sounds: active, all quadrants, Palpation: soft, in all quadrants, mild abdominal tenderness, in all quadrants, rebound tenderness, is not appreciated, voluntary guarding, is not appreciated, involuntary guarding, is not appreciated. 01:10 Back: CVA tenderness, is absent. 01:10 Neuro: Orientation: to person, place \T\ time. Mentation: able to follow commands, slow to respond, Motor: moves all fours, strength is normal, Sensation: no obvious gross deficits. 01:12 ECG was reviewed by the Attending Physician. cp Vital Signs: 00:58 BP 120 / 92; Pulse 114; Resp 20; Temp 97.9(TE); Pulse Ox 99% on R/A; Weight 58.97 kg lp1 (R); Height 5 ft. 2 in. (157.48 cm); Pain 6/10; 02:10 BP 131 / 91; Pulse 105; Resp 21; Pulse Ox 92% on R/A; kd3 03:41 BP 132 / 82; Pulse 101; Resp 16; Pulse Ox 100% on R/A; kd3 04:49 BP 133 / 94; Pulse 101; Resp 17; Pulse Ox 98% on R/A; kd3 00:58 Body Mass Index 23.78 (58.97 kg, 157.48 cm) lp1 MDM: 00:53 Patient medically screened. cp 01:30 Differential diagnosis: abnormal EKG, acute myocardial infarction, acute pericarditis, cp chest wall pain, cholecystitis, Cholelithiasis costochondritis, esophagitis, gastritis, myocarditis, pancreatitis, pleurisy, pneumonia, pneumothorax, pulmonary embolus. 04:20 Data reviewed: vital signs, nurses notes, lab test result(s), EKG, radiologic studies, cp CT scan, plain films. 04:20 Test interpretation: by ED physician or midlevel provider: ECG, plain radiologic cp studies. Counseling: I had a detailed discussion with the patient and/or guardian regarding: the historical points, exam findings, and any diagnostic results supporting the discharge/admit diagnosis, the presence of at least one elevated blood pressure reading (>120/80) during this emergency department visit, lab results, radiology results, the need for outpatient follow up, a family practitioner, to return to the emergency department if symptoms worsen or persist or if there are any questions or concerns that arise at home. Response to treatment: the patient's symptoms have markedly improved after treatment. Special discussion: Based on the patient's history, exam, and Dx evaluation, there is no indication for emergent intervention or inpatient Tx. It is understood by the patient/guardian that if the Sx's persist or worsen they need to return immediately for re-evaluation. 09/26 00:59 Order name: Basic Metabolic Panel; Complete Time: 02:18 cp 03/28 02:18 Interpretation: Normal except: K 3.2; CL 109; GLUC 113. cp 09/26 00:59 Order name: CBC with Diff; Complete Time: 03:05 cp 09/26 02:19 Interpretation: Normal except: HGB 15.3; MCV 105.1; MCH 36.4; JOHN% 37.6; LYM% 45.9; cp EOSINOPHIL % 5.8. 09/26 00:59 Order name: LFT's; Complete Time: 02:18 cp 09/26 02:19 Interpretation: Normal except: AST 203; ALT 197; ALK 137; GLOB 4.2; A/G 0.9. cp 09/26 00:59 Order name: Magnesium; Complete Time: 02:18 cp 09/26 00:59 Order name: NT PRO-BNP; Complete Time: 02:18 cp 09/26 00:59 Order name: PT-INR; Complete Time: 02:18 cp 09/26 00:59 Order name: Troponin HS; Complete Time: 02:18 cp 09/26 02:19 Interpretation: Reviewed. cp 09/26 00:59 Order name: XRAY Chest (1 view) cp 09/26 00:59 Order name: ETOH Level; Complete Time: 02:20 cp 09/26 02:20 Interpretation: Abnormal: ETOH 336. cp 09/26 00:59 Order name: Lipase; Complete Time: 02:18 cp 09/26 01:42 Order name: Urine Dipstick-Ancillary; Complete Time: 02:18 EDMS 09/26 02:20 Interpretation: Normal except: UBLD 2+. cp 09/26 01:47 Order name: CBC Smear Scan; Complete Time: 03:05 EDMS 09/26 03:05 Interpretation: Reviewed. cp 09/26 02:20 Order name: CT Chest For PE Angio cp 09/26 00:59 Order name: Cardiac monitoring; Complete Time: 02:07 cp 09/26 00:59 Order name: EKG - Nurse/Tech; Complete Time: 02:07 cp 09/26 00:59 Order name: IV Saline Lock; Complete Time: 02:07 cp 09/26 00:59 Order name: Labs collected and sent; Complete Time: 02:07 cp 09/26 00:59 Order name: O2 Per Protocol; Complete Time: 02:07 cp 09/26 00:59 Order name: O2 Sat Monitoring; Complete Time: 01:42 cp 09/26 02:20 Order name: CT Abd/Pelvis - IV Contrast Only cp 09/26 00:59 Order name: Urine Dipstick-Ancillary (obtain specimen); Complete Time: 02:06 cp 09/26 00:59 Order name: Urine Test (obtain specimen); Complete Time: 02:06 cp EC:12 Rate is 110 beats/min. Rhythm is regular. LA interval is normal. QRS interval is cp normal. QT interval is normal. T waves are Inverted in lead aVR. Interpreted by me. Reviewed by me. Administered Medications: 02:06 Drug: Pepcid (famotidine) 20 mg Route: IVP; Site: right antecubital; kd3 05:03 Follow up: Response: No adverse reaction kd3 02:06 Drug: Ketorolac 15 mg Route: IVP; Site: right antecubital; kd3 05:03 Follow up: Response: No adverse reaction; Pain is decreased kd3 02:07 Drug: Banana Bag - (NS 0.9% 1000 ml, foLIC Acid 1 mg, Thiamine 100 mg, Multivitamin 1 kd3 amp) Route: IV; Rate: 125 ml/hr; Site: right antecubital; 05:03 Follow up: Rate change 1000 ml; IV Status: Completed infusion kd3 02:07 Drug: Zofran (Ondansetron) 4 mg Route: IVP; Site: right antecubital; kd3 05:03 Follow up: Response: No adverse reaction kd3 04:23 CANCELLED (Physician Discretion): Potassium Chloride 20 mEq IV at calculated rate once; cp administer over 1-2 hours 04:27 Drug: NS 0.9% 500 ml Route: IV; Rate: bolus; Site: left antecubital; kd3 05:02 Follow up: Rate change 500 ml; IV Status: Completed infusion kd3 04:27 Drug: Potassium Effervescent Tablet 25 mEq Route: PO; kd3 05:02 Follow up: Response: No adverse reaction kd3 04:30 Drug: Potassium Effervescent Tablet 50 mEq Route: PO; kd3 05:02 Follow up: Response: No adverse reaction kd3 Disposition: 06:56 Co-signature as Attending Physician, Matthew Carlos MD. mh7 Disposition Summary: 03/28/22 04:20 Discharge Ordered Location: Home cp Problem: new cp Symptoms: have improved cp Condition: Stable cp Diagnosis - Chest pain, unspecified cp - Alcohol abuse with intoxication cp - Hypokalemia cp - Hypomagnesemia cp Followup: cp - With: Private Physician - When: 1 - 2 days - Reason: Recheck today's complaints Discharge Instructions: - Discharge Summary Sheet cp - Alcohol Intoxication cp - Nonspecific Chest Pain, Adult cp - Alcohol Abuse and Nutrition cp Forms: - Medication Reconciliation Form cp - Thank You Letter cp - Antibiotic Education cp - Prescription Opioid Use cp Prescriptions: - Ibuprofen 800 mg Oral Tablet - take 1 tablet by ORAL route every 8 hours As needed take with food; 30 tablet; cp Refills: 0, Product Selection Permitted Signatures: Dispatcher [employer] EDSvetlana Billings RN RN lp1 Lkahwinder Bills PA PA cp Matthew Carlos MD MD mh7 Elyssa Gan RN RN kd3 Corrections: (The following items were deleted from the chart) 04:23 02:22 Potassium Chloride 20 mEq IV at calculated rate once; administer over 1-2 hours cp ordered. cp
--- NOTE | 2021-09-26 04:20 | ER ---
Nurse's Notes [facility] Name: Sylvia Cruz Age: 36 yrs Sex: Female : 1985 Arrival Date: 09/26/2021 Time: 00:40 Bed 18 Private MD: Diagnosis: Chest pain, unspecified;Alcohol abuse with intoxication;Hypokalemia;Hypomagnesemia Presentation: 09/26 00:58 Chief complaint: Patient states: "I took a hit of a joint tonight, I haven't felt right lp1 since"; patient reports smoking marijuana about 2 hours ago and complaint of chest pain, shortness of breath; Reports + ETOH; "I am an alcoholic, I drink 2 bottles of wine every day". Coronavirus screen: At this time, the client does not indicate any symptoms associated with coronavirus-19. Ebola Screen: No symptoms or risks identified at this time. Initial Sepsis Screen: Does the patient meet any 2 criteria? No. Patient's initial sepsis screen is negative. Does the patient have a suspected source of infection? No. Patient's initial sepsis screen is negative. Risk Assessment: Do you want to hurt yourself or someone else? Patient reports no desire to harm self or others. Onset of symptoms was September 26, 2021. 00:58 Method Of Arrival: Wheelchair lp1 00:58 Acuity: BONITA 3 lp1 Triage Assessment: 01:03 General: Appears uncomfortable, Behavior is anxious, restless. Pain: Complains of pain lp1 in chest. Cardiovascular: Patient's skin is warm and dry. Respiratory: Reports shortness of breath. Derm: Skin is pink, warm \\T\\ dry. 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 - Social history:: Smoking status: Patient reports the use of cigarette tobacco products, smokes one-half pack cigarettes per day, Patient uses alcohol, on a daily basis. street drugs, marijuana. Screenin:09 Abuse screen: Denies threats or abuse. Denies injuries from another. Nutritional kd3 screening: No deficits noted. Tuberculosis screening: No symptoms or risk factors identified. Fall Risk Gait- Weak (10 pts.). Assessment: 02:08 Reassessment: pt seen in room, shaking. pt admits to being an alcoholic and states "I kd3 am withdrawing". pt on continuous O2 monitoring, cardiac monitoring, and blood pressure monitoring. Pain: Pain does not radiate. Pain began gradually. 04:34 Reassessment: Patient and/or family updated on plan of care and expected duration. Pain kd3 level reassessed. Patient is alert, oriented x 3, equal unlabored respirations, skin warm/dry/pink. Patient denies pain at this time. Patient states feeling better. Patient states symptoms have improved. 05:09 Reassessment: pt A\\T\\O x4, steady gait, no slurred speech. kd3 Vital Signs: 00:58 BP 120 / 92; Pulse 114; Resp 20; Temp 97.9(TE); Pulse Ox 99% on R/A; Weight 58.97 kg lp1 (R); Height 5 ft. 2 in. (157.48 cm); Pain 6/10; 02:10 BP 131 / 91; Pulse 105; Resp 21; Pulse Ox 92% on R/A; kd3 03:41 BP 132 / 82; Pulse 101; Resp 16; Pulse Ox 100% on R/A; kd3 04:49 BP 133 / 94; Pulse 101; Resp 17; Pulse Ox 98% on R/A; kd3 00:58 Body Mass Index 23.78 (58.97 kg, 157.48 cm) lp1 ED Course: 00:40 Patient arrived in ED. ja2 00:47 Lakhwinder Bills PA is PHCP. cp 00:47 Matthew Carlos MD is Attending Physician. cp 01:01 Elyssa Gan RN is Primary Nurse. kd3 01:02 Triage completed. lp1 01:04 Patient maintains SpO2 saturation greater than 95% on room air. lp1 01:04 Arm band placed on. lp1 01:47 X-ray completed. Portable x-ray completed in exam room. Patient tolerated procedure mh1 well. 01:52 XRAY Chest (1 view) In Process Unspecified. EDMS 02:09 Patient has correct armband on for positive identification. Bed in low position. Side kd3 rails up X2. library monitor on. Pulse ox on. NIBP on. 03:41 CT Chest For PE Angio In Process Unspecified. EDMS 03:41 CT Abd/Pelvis - IV Contrast Only In Process Unspecified. EDMS 05:01 No provider procedures requiring assistance completed. IV discontinued, intact, kd3 bleeding controlled, No redness/swelling at site. Pressure dressing applied. Administered Medications: 02:06 Drug: Pepcid (famotidine) 20 mg Route: IVP; Site: right antecubital; kd3 05:03 Follow up: Response: No adverse reaction kd3 02:06 Drug: Ketorolac 15 mg Route: IVP; Site: right antecubital; kd3 05:03 Follow up: Response: No adverse reaction; Pain is decreased kd3 02:07 Drug: Banana Bag - (NS 0.9% 1000 ml, foLIC Acid 1 mg, Thiamine 100 mg, Multivitamin 1 kd3 amp) Route: IV; Rate: 125 ml/hr; Site: right antecubital; 05:03 Follow up: Rate change 1000 ml; IV Status: Completed infusion kd3 02:07 Drug: Zofran (Ondansetron) 4 mg Route: IVP; Site: right antecubital; kd3 05:03 Follow up: Response: No adverse reaction kd3 04:23 CANCELLED (Physician Discretion): Potassium Chloride 20 mEq IV at calculated rate once; cp administer over 1-2 hours 04:27 Drug: NS 0.9% 500 ml Route: IV; Rate: bolus; Site: left antecubital; kd3 05:02 Follow up: Rate change 500 ml; IV Status: Completed infusion kd3 04:27 Drug: Potassium Effervescent Tablet 25 mEq Route: PO; kd3 05:02 Follow up: Response: No adverse reaction kd3 04:30 Drug: Potassium Effervescent Tablet 50 mEq Route: PO; kd3 05:02 Follow up: Response: No adverse reaction kd3 Outcome: 04:20 Discharge ordered by . cp 05:02 Discharged to home ambulatory. kd3 05:02 Condition: stable 05:02 Discharge instructions given to patient, Instructed on discharge instructions, follow up and referral plans. Demonstrated understanding of instructions, follow-up care, medications, Prescriptions given X 1. 05:03 Patient left the ED. kd3 Signatures: Dispatcher [employer] EDVero Parker 1 Svetlana Rasheed RN RN lp1 Lakhwinder Bills PA PA cp Alexander, Jessica ja2 Doucette, Kyli, RN RN kd3
[2021-09-26] MEDS ORDERED: NA CHLORIDE 0.9% 0 ML ONE (04:24)
[2021-09-26] MEDS ORDERED: KCL 20 MEQ/100 mL IVPB 0 ML IV ONE (04:24)
[2021-09-26] MEDS ORDERED: POTASSIUM CL SA 10 MEQ TAB PO ONE (04:28)
[2021-09-26] MEDS ORDERED: POTASSIUM 25 MEQ EFFERV TAB ONE (04:32)
[2021-09-26 05:21] VITALS: TEMP 97.9
[2021-09-26 05:26] VITALS: BP 133/94; O2SAT 98
--- NOTE | 2021-09-26 11:17 | RAD REPORT ---
EXAM DESCRIPTION: CT - Chest For Pe Angio - 09/26/2021 6:29 am CLINICAL HISTORY: The patient is 36 years old and is Female; CHEST PAIN TECHNIQUE: Axial computed tomographic angiography images of the chest with intravenous contrast. S agittal and coronal reformatted images were created and reviewed. This CT exam was performed using one or more of the following dose reduction techniques: automated exposure control, adjustment of t he mA and/or kV according to patient size, and/or use of iterative reconstruction technique. MIP reconstructed images were created and reviewed. COMPARISON: No relevant prior studies available. FINDINGS: PULMONARY ARTERIES: There are no obvious filling defects identified within the pulmonary arteries to suggest pulmonary embolism. AORTA: No acute findings. No thoracic aortic aneurysm. LUNGS: Unremarkable. No mass. No consolidation. PLEURAL SPACE: Unremarkable. No significant effusion. No pneumothorax. HEART: Unremarkable. No cardiomegaly. No significant pericardial effusion. No evidence of RV dysfunction. BONES/JOINTS: No acute fracture. No dislocation. SOFT TISSUES: Unremarkable. LYMPH NODES: Unremarkable. No enlarged lymph nodes. LIVER: The liver is enlarged and diffusely fatty. IMPRESSION: No evidence of pulmonary embolism. Electronically signed by: Mellissa Schafer MD 09/26/2021 4:07 AM CDT Due to temporary technical issues with the PACS/Fluency reporting system, reports are being signed by the in house radiologist without review as a courtesy to ensure prompt reporting. The interpreting r adiologist is fully responsible for the content of the report.
--- NOTE | 2021-09-26 11:19 | RAD REPORT ---
EXAM DESCRIPTION: CT - Abdomen Pelvis W Contrast - 09/26/2021 6:29 am CLINICAL HISTORY: The patient is 36 years old and is Female; ABD PAIN TECHNIQUE: Axial computed tomography images of the abdomen and pelvis with intravenous contrast. S agittal and coronal reformatted images were created and reviewed. This CT exam was performed using one or more of the following dose reduction techniques: automated exposure control, adjustment of t he mA and/or kV according to patient size, and/or use of iterative reconstruction technique. COMPARISON: CT of the abdomen and pelvis March 31, 2019 FINDINGS: LUNG BASES: Unremarkable. No mass. No consolidation. ABDOMEN: LIVER: The liver is enlarged and diffusely fatty. GALLBLADDER AND BILE DUCTS: The gallbladder is contracted. PANCREAS: No ductal dilation. No mass. SPLEEN: Unremarkable. ADRENALS: Unremarkable. No mass. KIDNEYS AND URETERS: Unremarkable. The kidneys enhance symmetrically. No obstructing renal or ur eteral calculus is seen. No hydronephrosis or hydroureter. No perinephric fluid or stranding. STOMACH AND BOWEL: The stomach is minimally distended with food contents. The small bowel is rel atively normal in caliber. Stool is present throughout colon. There is no mucosal thickening or evide nce of bowel obstruction. PELVIS: APPENDIX: The appendix is normal in caliber without surrounding inflammation. BLADDER: The bladder is moderately distended. REPRODUCTIVE: The uterus and ovaries are unremarkable. ABDOMEN and PELVIS: INTRAPERITONEAL SPACE: Trace free fluid is present within the pelvis which is likely physiologic . No free air. BONES/JOINTS: No acute fracture. SOFT TISSUES: The soft tissues are normal. VASCULATURE: Unremarkable. No abdominal aortic aneurysm. LYMPH NODES: Unremarkable. No enlarged lymph nodes. IMPRESSION: No acute findings on this contrasted CT of the abdomen and pelvis to explain the patient 's symptoms. Electronically signed by: Mellissa Schafer MD 09/26/2021 4:03 AM CDT Due to temporary technical issues with the PACS/Fluency reporting system, reports are being signed by the in house radiologist without review as a courtesy to ensure prompt reporting. The interpreting r adiologist is fully responsible for the content of the report.
--- NOTE | 2021-09-26 11:40 | RAD REPORT ---
EXAM DESCRIPTION: RAD - Chest Single View - 09/26/2021 1:50 am CLINICAL HISTORY: 36 years Female, CHEST PAIN COMPARISON: Chest x-ray June 08, 2021 FINDINGS: No consolidation. No pneumothorax. No significant pleural effusion. Cardiomediastinal silhouette is unremarkable. Osseous structures are unremarkable. IMPRESSION: No acute findings. Electronically signed by: Ronaldo Guzman MD 09/26/2021 2:04 AM CDT Due to temporary technical issues with the PACS/Fluency reporting system, reports are being signed by the in house radiologist without review as a courtesy to ensure prompt reporting. The interpreting r adiologist is fully responsible for the content of the report.
--- NOTE | 2021-09-27 12:37 | EKG ---
Test Date: 2021-09-26 Test Time: 01:05:11 Tv Production Assistant: RUDOLPH MEASUREMENT RESULTS: Intervals: Rate: 110 WI: 136 QRSD: 76 QT: 350 QTc: 473 [place]: P: 55 WI: 136 QRS: 4 T: 23 INTERPRETIVE STATEMENTS: Sinus tachycardia Minimal voltage criteria for LVH, may be normal variant Borderline ECG Compared to ECG 08/24/2021 19:44:40 Left ventricular hypertrophy now present Sinus rhythm no longer present Electronically Signed On 09-27-21 12:33:28 CDT by Rito Thompson
== END 2021-09-26 05:03 | disposition home or self-care (01) ==
LOC: ER 00:39 → EEVIPCON 00:39 → ER 05:03
DX: F10.229 Alcohol dependence with intoxication, unspecified (principal); E87.6 Hypokalemia; E83.42 Hypomagnesemia; I10 Essential (primary) hypertension; F31.9 Bipolar disorder, unspecified; F17.210 Nicotine dependence, cigarettes, uncomplicated
CPT/HCPCS: 96365; 93005; 85025; 80048; 36415; 80320; 83735; 85610; 80076; 81003; 84484; 83690; 83880; 71275; 74177; 71045; 96375; 99285; 96366; Q9967; J3411; J7030; J2405; J3480; J7040

== ENCOUNTER 2021-12-03 21:13 | Emergency (ER) | payer OTHER ==
--- OUTSIDE RECORDS SUMMARY | 2021-12-03 21:15 | XMS REPORT | Continuity of Care Document ---
:1985 Author Organization [facility] t Address [address] [place] [address] Care Team Providers Name Role Phone ANNA RICKS Primary Care Physician Unavailable Andrea DEVLIN Attending Clinician Unavailable Visit, Nurse Attending Clinician Unavailable Anne Welch Attending Clinician Anne RICKS Attending Clinician Unavailable William OJEDA C Attending Clinician Ann Marie GOMES Attending Clinician Unavailable DEYSI Attending Clinician Unavailable Lucía BLUM Attending Clinician Ayana Alvarez Attending Clinician DEYSI Admitting Clinician Unavailable Payers Payer Name Policy Type Policy Number Effective Date Expiration Date Huy lau [facility] [id number] 2017 00:00:00 Problems Condition Condition Condition Status Onset Resolution Last Treating Co mments Source Name Details Category Date Date Treatment Clinician Date Pelvic Pelvic Disease Active Univers pain pain 2-09 ity of 00:: [address] Encounter Encounter Disease Active Uni vers for for 4-16 [place] pres[place] 00 Medical progestin- progestin- Br anch only only injected injected contracept contracept jacob jacob Irregular Irregular Disease Active Uni vers menses menses 8-02 ity of 00:00: [address] Well woman Well woman Disease Active U nivers exam exam 10-06 ity of 00:00: [place] [facility] Mollusca Mollusca Disease Active Unive rs contagiosa contagiosa 10-06 it y of 00:00: [place] [facility] Tobacco Tobacco Disease Active Univers use use 10-06 ity of disorder disorder 00:00: [address] Contracept Contracept Disease Active U nivers jacob jacob 07-08 [place] [address] [place] [address] Allergies, Adverse Reactions, Alerts Allergy Allergy Status Severity Reaction(s) Onset Inactive Treating Comm ents Source Name Type Date Date Clinician NO KNOWN Drug Active Univers ALLERGIE Class ity of S [facility] Social History Social Habit Start Date Stop Date Quantity Comments Source Exposure to Not sure [facility] SARS-CoV-2 (event) [facility] History SDOH University o f Alcohol Frequency [facility] edical Branch History SDOH University o f Alcohol Std Drinks [facility] History SDKS University o f Alcohol Binge [facility] al Branch History of tobacco Cigarette Smoker University of use [facility] Alcohol intake 2021-10-04 2021-10-04 Ex-drinker University of 00:00:00 00:00:00 (finding) [facility] Tobacco use and 2021-07-01 2021-07-01 Never used Universit y of exposure 00:00:00 00:00:00 [facility] Cigarettes smoked 2021-07-01 2021-07-01 Univers ity of current (pack per 00:00:00 00:00:00 [facility] ) - Reported Branch Cigarette 2021-07-01 2021-07-01 University of pack-years 00:00:00 00:00:00 [facility] Tobacco Comment 2012-10-03 2012-10-03 states only Universi ty of 00:00:00 00:00:00 smokes on [facility] Alcohol Comment 2012-10-03 2012-10-03 socially Universit y of 00:00:00 00:00:00 [facility] Sex Ass[birth year] At [birth year] Universit y of 00:00:00 00:00:00 [facility] Smoking Status Start Date Stop Date Source Former smoker 2021-07-01 00:00:00 2021-07-01 00:00:00 [facility] Medical Branch Medications Ordered Filled Start Stop Current Ordering Indication Dosage Frequency Signature Comments Components Source Medication Medication Date Date Medication? Clinician (SIG) Name Name medroxyPROG 2020-07- No [id number] 150mg Univers ESTERone 06-02 ity of (DEPO-PROVE 20:15: 20:14 [place] RA) 00 :00 Medical injection Branch 150 mg medroxyPROG 2020-07- No [id number] 150mg 150 mg, Univers ESTERone 06-02 Intramuscu ity of (DEPO-PROVE 20:15: 20:14 lar, [place] RA) 00 :00 [id number], Medical injection 4 doses, Branch 150 mg First dose on Sun07/01/21 at 1415, Last dose on Sun03/10/22 at 1415, Routine medroxyPROG 2020-07- No [id number] 150mg Univers ESTERone 06-02 ity of (DEPO-PROVE 20:15: 20:14 [place] RA) 00 :00 Medical injection Branch 150 mg medroxyPROG 2020-07- No [id number] 150mg Univers ESTERone 06-02 ity of (DEPO-PROVE 20:15: 20:14 [place] RA) 00 :00 Medical injection Branch 150 mg medroxyPROG 2020-07- No [id number] 150mg 150 mg, Univers ESTERone 06-02 Intramuscu ity of (DEPO-PROVE 20:15: 20:14 lar, [place] RA) 00 :00 [id number], Medical injection 4 doses, Branch 150 mg First dose on Sun07/01/21 at 1415, Last dose on Sun03/10/22 at 1415, Routine cephALEXin 2020-07 Yes [id number] 500mg Take 1 Univers (KEFLEX) 2-29 capsule by ity o f 500 mg 00:00: mouth 3 [place] capsule 00 (three) Medical times Branch daily. cephALEXin 2020-07 Yes [id number] 500mg Take 1 Univers (KEFLEX) 2-29 capsule by ity o f 500 mg 00:00: mouth 3 [place] capsule 00 (three) Medical times Branch daily. cephALEXin 2020-07 Yes [id number] 500mg Take 1 Univers (KEFLEX) 2-29 capsule by ity o f 500 mg 00:00: mouth 3 [place] capsule 00 (three) Medical times Branch daily. naproxen Yes [id number] 250mg Take 1 Un evaristo 250 mg 2-09 tablet by ity of tablet 00:00: mouth [place] 00 every 8 Medical (eight) Branch hours as needed for Pain (scale 4-6). Take 500mg followed by 250mg every 6-8 hours naproxen Yes [id number] 250mg Take 1 Un evaristo 250 mg 2-09 tablet by ity of tablet 00:00: mouth [place] 00 every 8 Medical (eight) Branch hours as needed for Pain (scale 4-6). Take 500mg followed by 250mg every 6-8 hours naproxen Yes [id number] 250mg Take 1 Un evaristo 250 mg [...] Immunizations Ordered Filled Immunization Date Status Comments [facility] e Immunization Name Name [facility] 2021-08-31 Completed University of 00:00:00 [facility] 2021-08-31 Completed University of 00:00:00 [facility] 2021-07-01 Completed University of 00:00:00 [place] [address] 2021-07-01 Completed University of 00:00:00 [place] [address] 2021-07-01 Completed University of 00:00:00 [facility] Influenza Virus 2020-05-06 Completed Universit y of Vaccine Quad .5 mL 00:00:00 [place] Medical IM 6+ MO Branch Influenza Virus 2020-05-06 Completed Universit y of Vaccine Quad .5 mL 00:00:00 [place] Medical IM 6+ MO Branch Influenza Virus 2020-05-06 Completed Universit y of Vaccine Quad .5 mL 00:00:00 [facility] IM 6+ MO Branch TDAP 2011-10-31 Completed University of 00:00:00 [facility] TDAP 2011-10-31 Completed University of 00:00:00 [facility] TDAP 2011-10-31 Completed University of 00:00:00 [facility] Vital Signs Vital Name Observation Time Observation Value Comments Source Systolic blood 2021-10-04 18:44:00 128 mm[Hg] Univer sity of [facility] Diastolic blood 2021-10-04 18:44:00 87 mm[Hg] Unive rs[facility] of [facility] Heart rate 2021-10-04 18:44:00 72 /[facility] Body temperature 2021-10-04 18:44:00 35.83 Sushma [facility] Respiratory rate 2021-10-04 18:44:00 18 /min [facility] Body height 2021-10-04 18:44:00 154.9 cm [facility] Body weight 2021-10-04 18:44:00 60.442 [facility] BMI 2021-10-04 18:44:00 25.18 kg/m2 [facility] Systolic blood 2021-08-31 18:58:00 111 mm[Hg] Univer [facility] Diastolic blood 2021-08-31 18:58:00 71 mm[Hg] Unive rs[facility] of [facility] Heart rate 2021-08-31 18:58:00 82 /min [facility] Body temperature 2021-08-31 18:58:00 36.17 Sushma [facility] Respiratory rate 2021-08-31 18:58:00 16 /min [facility] Body height 2021-08-31 18:58:00 154.9 cm Universi ty of [facility] Body weight 2021-08-31 18:58:00 61.236 kg Universi ty of [facility] BMI 2021-08-31 18:58:00 25.51 kg/m2 Universi ty [facility] Systolic blood 2021-07-01 19:55:00 129 mm[Hg] Univer sity of pressure [facility] Diastolic blood 2021-07-01 19:55:00 92 mm[Hg] Unive rs[facility] of [facility] Heart rate 2021-07-01 19:34:00 82 /min Universi ty [facility] Body temperature 2021-07-01 19:34:00 36.17 Sushma [facility] 2021-07-01 19:34:00 18 /min [facility] Body height 2021-07-01 19:34:00 154.9 cm Universi ty [facility] Body weight 2021-07-01 19:34:00 60.963 kg Universi ty [facility] BMI 2021-07-01 19:34:00 25.39 kg/m2 Universi ty [facility] Procedures Procedure Date / Time Performed Performing Clinician [facility] e POCT TEST 2021-10-04 18:51:00 Awilda Devlin [facility] GARDASIL 9 (HPV 9V) 2021-08-31 19:03:43 Anna Ricks [facility] GARDASIL 9 (HPV 9V) 2021-07-01 20:10:59 Awilda Devlin [facility] Encounters Start End Encounter Admission Attending Care Care Encounter Source Date/Time Date/Time Type Type Clinicians Facility Department ID 2021-12-30 2021-12-30 Outpatient R [facility] [id number] Univers 13:00:00 13:00:[id number] 2021-12-30 2021-12-30 Outpatient R [facility] [id number] Univers 13:00:00 13[facility]00[facility] 2021-12-27 2021-12-27 Outpatient R [facility] [id number] Univers 13:30:00 13:30:00 [id number] ity [facility] 2021-12-27 2021-12-27 Outpatient R [facility] [id number] Univers 13:30:00 13:30:00 ity [facility] 2021-11-30 2021-11-30 Outpatient R AKINSICASSANDRA, [facility] [id number] Univers 14:30:00 14:30:00 AWILDA [id number] ity o [facility] 2021-11-30 2021-11-30 Outpatient R AKINSIPE, [facility] [id number] Univers 14:30:00 14:30:00 AWILDA it o [facility] 2021-10-04 2021-10-04 [facility] [id number] Univers 13:30:00 13:57:52 Visit Anna Ricks [employer] [id number] Anatoliy as MATERNAL [id number] Med ical & CHILD [address] [place] [address] 2021-10-04 2021-10-04 Outpatient R [facility] [id number] Univers 13:30:00 13:30:00 [id number] [facility] 2021-10-04 2021-10-04 [facility] [id number] Univers 13:30:00 13:30:00 ANNA ity o [facility] 2021-09-23 2021-09-23 Outpatient R LACI [facility] [id number] Univers 13:00:00 13:00:00 KIMBERLYA ity o [facility] 2021-08-31 2021-08-31 [facility] [id number] Univers 13:30:00 13:30:00 KIMBERLYA ity o [facility] 2021-08-31 2021-08-31 Nurse [facility] [id number] Univers 13:30:00 13:30:00 Visit Anna Ricks [employer] [id number] ity of [facility] [id number] Anatoliy as MATERNAL [id number] [facility] & CHILD [address] [place] [address] 2021-07-01 2021-07-01 Office William [facility] [id number] Univers 13:15:00 14:10:58 Visit Awilda Andrea [employer] [id number] ity [facility] [id number] Anatoliy as MATERNAL [id number] [facility] & CHILD [address] [place] [address] 2021-07-01 2021-07-01 [facility] [id number] Univers 09:00:00 09:00:00 AWILDA adrian o f [facility] 2021-06-29 2021-06-29 [facility] [id number] Univers 13:00:00 13:00:[address] [facility] 2021-06-28 2021-06-29 Emergency [facility] [id number] Univers 23:27:00 04:47:[address] [facility] 2020-11-01 2020-11-01 Emergency [facility] TRAUMA [id number] 22:05:00 22:06:00 , [facility] [id number] 2020-11-01 2020-11-01 Emergency [place] [facility] [id number] 17:05:00 20:46:00 Ayana Martin [id number] [place] [id number] [place] [id number] 2020-11-01 2020-11-01 [facility] [id number] 13:58:16 14:28:58 Visit Anna Rodríguez [employer] [id number] REGIONAL [id number] MATERNAL [id number] & CHILD [address] [place] [address] Results Test Description Test Time Test Comments Results Result Comments Source POCT TEST 2021-10-04 18:51:00 Test Item Value Reference Range Interpretation Comme nts POCT PREG (test code = 1605) Negative On board controls acceptable with C Line (test code = 3574) Yes POCT PREG LOT # (test code = 3575) POCT PREG TEST DATE (test code = 3576) [facility] [id number] 04:03:56 Test Item Value Reference Range Interpretation Comments GLUCOSE (test code = 101 MG/DL 70-99 H 2216) BUN (test code = 10 MG/DL 6-20 2207) CREATININE (test 0.75 MG/DL 0.60-1.30 code = 2214) eGFR (2020 CKD-EPI) 106 >60 (test code = 53362) ML/MIN/1.73 CALC BUN/CREAT (test 13 RATIO 6-28 code = 2235) SODIUM (test code = 141 MEQ/L 838-872 5714) POTASSIUM (test code 4.1 MEQ/L 3.5-5.4 = 2227) CHLORIDE (test code 103 MEQ/L 95-107 = 2214) CARBON DIOXIDE (test 24 MEQ/L 19-31 code = 2206) CALCIUM (test code = 10.2 MG/DL 8.5-10.5 2208) PROTEIN, TOTAL (test 7.7 G/DL 6.1-8.3 code = 2229) ALBUMIN (test code = 4.7 G/DL 3.5-5.2 2200) CALC GLOBULIN (test 3.0 G/DL 1.9-3.7 code = 2240) CALC A/G RATIO (test 1.6 RATIO 1.0-2.6 code = 2234) BILIRUBIN, TOTAL 1.0 MG/DL See_Comment [Automated message] (test code = 2207) The syste m which generated this result transmit meghan reference range : <=1.2. The refe rence range was not u sed to interpret th is result as normal/abnormal . ALKALINE PHOSPHATASE 149 U/L 40-114 H (test code = 2204) AST (test code = 398 U/L 9-40 H 2217) ALT (test code = 329 U/L 5-40 H 2218) HEPATITIS PANEL, [id number] 03:45:56 Test Item Value Reference Range Interpretation Comments HEPATITIS A IgM (test NON-REACTIVE NON-REACTIVE code = 00517) HEPATITIS B CORE IgM NON-REACTIVE NON-REACTIVE (test code = 4644) HEPATITIS B SURF AG NON-REACTIVE NON-REACTIVE (test code = 2739) HEPATITIS C ANTIBODY NON-REACTIVE NON-REACTIVE (test code = 4675) INTERPRETATION (NOTE) Hepatiti s A HEPATITIS A: (test serology shows no code = 2552) evidence of acu te hepatitis A. INTERPRETATION (NOTE) Hepatiti s B HEPATITIS B: (test serology shows no code = 31274) evidence of ac [place] hepatitis B and no indication of exposure to hepatitis B vir us in the previous si xto eight months. INTERPRETATION (NOTE) Hepatiti s C HEPATITIS C: (test serology shows no code = 13126) evidence of ex posure to hepatitisC v irus at this time. It can take up to 12 months after exposure tothe hepatitis C vir us for antibodies to become detectab le in the blood i n certain patient s. UNLESS OTHE RWISE INDICATED, ALL TESTING PERFORM [facility], [place]. [address] [place] [address] 4 TRAILER RENTAL CLERK: SUNNY ROWE M.D. CLIA NUMBER [id number] CAP ACCREDITATION N O. [id number]
[2021-12-03] MEDS ORDERED: NA CHLORIDE 0.9% 1,000 ML ONE (21:44)
[2021-12-03] MEDS ORDERED: LORazepam 2 MG/ML VIAL ONE (21:46)
[2021-12-03 21:51] LABS: Absolute Lymphocytes (CBC) 3.8 K/uL (0.7-4.9); Hematocrit 42.3 % (36.0-45.0); Lymphocytes % 44.6 % (15.3-44.8); MPV 6.6 fL (7.6-11.3); RBC Red Blood Cell Count 4.11 M/uL (3.86-4.86)
[2021-12-03] MEDS ORDERED: ACETAMINOPHEN 500 MG TAB ONE (21:58)
--- NOTE | 2021-12-03 22:05 | RAD REPORT ---
EXAM DESCRIPTION: Huy Single View12/03/2021 9:58 pm CLINICAL HISTORY: Chest pain COMPARISON: 2020 FINDINGS: The lungs appear clear of acute infiltrate. The heart is normal size IMPRESSION: No acute abnormalities displayed
[2021-12-03 22:14] LABS: Troponin High Sensitivity 3.2 pg/mL (<58.9)
[2021-12-03 22:15] LABS: Potassium 3.1 mmol/L (3.5-5.1)
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
[2021-12-04] MEDS ORDERED: POTASSIUM CL SA 10 MEQ TAB PO ONE (00:52)
[2021-12-04 01:15] VITALS: TEMP 97.1
[2021-12-04 01:19] VITALS: O2SAT 99
[2021-12-04 01:21] VITALS: BP 131/99
--- NOTE | 2021-12-04 12:51 | EKG ---
Test Date: 2021-12-03 Test Time: 21:23:19 Mime Artist: SASHA MEASUREMENT RESULTS: Intervals: Rate: 114 CO: 128 QRSD: 78 QT: 340 QTc: 468 [place]: P: 73 CO: 128 QRS: 23 T: 30 INTERPRETIVE STATEMENTS: Sinus tachycardia Possible Left atrial enlargement Borderline ECG Compared to ECG 09/26/2021 01:05:11 Left ventricular hypertrophy no longer present Electronically Signed On 12-04-21 12:50:32 CDT by Wilmer Guzman
--- NOTE | 2021-12-06 09:24 | RAD REPORT ---
EXAM DESCRIPTION: Chest For Pe Angio CLINICAL HISTORY: 36-year-old female with shortness of breath. COMPARISON: 09/26/2021. TECHNIQUE: CT angiography of the pulmonary arteries was performed following intravenous administrati on of contrast. Coronal and bilateral oblique maximum intensity projections (MIPS) were created. This exam was performed according to our departmental dose optimization program which includes use of aut omated exposure control, adjustment of the mA and/or kV according to patient size and/or use of itera tive reconstruction technique. FINDINGS: Chest: Evaluation through the lungs reveals no focal opacity, pleural effusion or pneumothorax. There is min imal dependent basilar atelectasis and scarring. The tracheobronchial airways are patent. No signific ant mediastinal or axillary lymphadenopathy by CT measurement criteria. Limited evaluation of the upper abdomen shows no acute intra-abdominal abnormalities. Nonspecific deformity of the distal sternum may be secondary to sequela of prior posttraumatic or con genital deformity. Slightly S-shaped thoracic scoliosis of the thoracic spine The osseous structures are otherwise within normal limits. CT angiography: Diagnostic CT angiography of the pulmonary arteries without intraluminal filling defe ct noted to suggest pulmonary arterial embolus. IMPRESSION: 1. Diagnostic pulmonary angiography without findings to suggest pulmonary arterial embol us. 2. The lungs are clear without focal opacity, pleural effusion or pneumothorax. 3. No specific findings are noted to suggest etiology of the patient's chest pain and shortness of br eath. Electronically signed by: Kalyani Xavier MD 12/03/2021 11:35 PM CDT Due to temporary technical issues with the PACS/Fluency reporting system, reports are being signed by the in house radiologists without review as a courtesy to insure prompt reporting. The interpreting radiologist is fully responsible for the content of the report.
--- NOTE | 2021-12-06 09:25 | RAD REPORT ---
EXAM DESCRIPTION: Hip Right 2 View CLINICAL HISTORY: 36-year-old female with pain. COMPARISON: None. TECHNIQUE: Two views of the RIGHT hip were obtained in AP and lateral projection. FINDINGS: There is no fracture or dislocation. The joint spaces are preserved. No soft tissue abnorm alities are seen. The sacrum is partially obscured by overlying bladder density from contrast materia l. IMPRESSION: No acute radiographic abnormality. Electronically signed by: Kalyani Xavier MD 12/03/2021 11:37 PM CDT Due to temporary technical issues with the PACS/Fluency reporting system, reports are being signed by the in house radiologists without review as a courtesy to insure prompt reporting. The interpreting radiologist is fully responsible for the content of the report.
== END 2021-12-04 01:06 | disposition home or self-care (01) ==
LOC: ER 21:13
DX: R06.02 Shortness of breath (principal); E87.6 Hypokalemia; F10.10 Alcohol abuse, uncomplicated; I10 Essential (primary) hypertension; F32.A Depression, unspecified; F10.20 Alcohol dependence, uncomplicated; F17.210 Nicotine dependence, cigarettes, uncomplicated
CPT/HCPCS: 93005; 85025; 80048; 36415; 85379; 84484; 71275; 71045; 73502; 96374; 99284; Q9967; J7030

== ENCOUNTER 2022-03-25 15:58 | Emergency (ER) | payer OTHER, SELFPAY ==
--- OUTSIDE RECORDS SUMMARY | 2022-03-25 16:02 | XMS REPORT | Continuity of Care Document ---
:1985 Author Organization [facility] t Address [address] [place] [address] Care Team Providers Name Role Phone Anna Welch Primary Care Physician [phone] AWILDA THOMAS Attending Clinician Unavailable [facility] Attending [facility]ician Unavailable Anna Welch Attending Clinician ANNA AGUERO Attending Clinician Unavailable Awilda Medeiros Attending Clinician [phone] MARQUITA GOMES Attending Clinician Unavailable MARY JO Attending Clinician Unavailable Keshia Castrejon MD Attending Clinician Lily Alvarez Attending Clinician MARY JO Admitting Clinician Unavailable Payers Payer Name Policy Type Policy Number Effective Date Expiration Date S ource Problems Condition Condition Condition Status Onset Resolution Last Treating Co mments Source Name Details Category Date Date Treatment Clinician Date Pelvic Pelvic Disease Active Univers pain pain 2-09 ity of 00:00: [place] 00 [facility] Encounter Encounter Disease Active Uni vers for for 4-16 [place] 00 Medical progestin- progestin- Br anch only only injected injected contracept contracept jacob jacob Irregular Irregular Disease Active Uni vers menses menses 8-02 ity of 00:00: [place] 00 [facility] Well woman Well woman Disease Active U nivers exam exam 10-06 ity of 00:00: [place] [facility] Mollusca Mollusca Disease Active Unive rs contagiosa contagiosa 10-06 it y of 00:00: [place] 00 [facility] Tobacco Tobacco Disease Active Univers use use 10-06 ity of disorder disorder 00:00: [address] Contracept Contracept Disease Active U nivers jacob jacob 07-08 [place] management [place] [facility] Allergies, Adverse Reactions, Alerts Allergy Allergy Status Severity Reaction(s) Onset Inactive Treating Comm ents Source Name Type Date Date Clinician NO KNOWN Drug Active Univers ALLERGIE Class ity of S [facility] Social History Social Habit Start Date Stop Date Quantity Comments Source History SDOH University o f [facility] History SDOH University o f Alcohol Std Drinks [facility] History SDKS University o f Alcohol Binge [facility] [place] History of tobacco Cigarette Smoker University of use [facility] Exposure to 2022-03-11 2022-03-21 Not sure University SARS-CoV-2 (event) 00:00:00 13:44:00 [facility] Tobacco use and 2022-03-21 2022-03-21 Smokeless Universit y of exposure 00:00:00 00:00:00 tobacco non-user [facility] dicny Branch Cigarettes smoked 2022-03-21 2022-03-21 Univers ity of current (pack per 00:00:00 00:00:00 [facility] ) - Reported Branch Cigarette 2022-03-21 2022-03-21 University of pack-years 00:00:00 00:00:00 [facility] Alcohol intake 2022-03-21 2022-03-21 Ex-drinker University of 00:00:00 00:00:00 (finding) [facility] Tobacco Comment 2022-03-21 2022-03-21 states only Universi ty of 00:00:00 00:00:00 smokes on [facility] Alcohol Comment 2012-10-03 2012-10-03 socially Universit y of 00:00:00 00:00:00 [place] [facility] Sex [birth year] Universit y of 00:00:00 00:00:00 [facility] Smoking Status Start Date Stop Date Source Ex-smoker 2022-03-21 00:00:00 2022-03-21 00:00:00 [facility] Medications Ordered Filled Start Stop Current Ordering Indication Dosage Frequency Signature Comments Components Source Medication Medication Date Date Medication? Clinician (SIG) Name Name medroxyPROG 2021- No [id number] 150mg Univers ESTERone 03-21 ity of (DEPO-PROVE 19:45: 18:52 [place] RA) syringe 00 :00 Medical 150 mg Branch medroxyPROG 2021- No [id number] 150mg 150 mg, Univers ESTERone 03-21 Intramuscu ity of (DEPO-PROVE 19:45: 18:52 lar, ONCE, [place] RA) syringe 00 :00 1 dose, On Me dical 150 mg Tue Branch 03/21/22 at 1445, Routine medroxyPROG 2020-07- No [id number] 150mg Univers ESTERone 06-02 ity of (DEPO-PROVE 20:15: 20:14 [place] RA) 00 :00 Medical injection Branch 150 mg medroxyPROG 2020-07- No [id number] 150mg 150 mg, Univers ESTERone 06-02 Intramuscu ity of (DEPO-PROVE 20:15: 20:14 lar, [place] RA) 00 :00 [id number], Medical injection 4 doses, Branch 150 mg First dose on Sun07/01/21 at 1415, Last dose on Sun03/10/22 at 1415, Routine medroxyPROG 2020-07- No [id number] 150mg Univers ESTERone 06-02 ity of (DEPO-PROVE 20:15: 20:14 [place] RA) 00 :00 Medical injection Branch 150 mg medroxyPROG 2020-07- No [id number] 150mg Univers ESTERone -06-02 ity of (DEPO-PROVE 20:15: 20:14 [place] RA) 00 :00 Medical injection Branch 150 mg medroxyPROG 2020-07- No [id number] 150mg 150 mg, Univers ESTERone 06-02 Intramuscu ity of (DEPO-PROVE 20:15: 20:14 lar, [place] RA) 00 :00 [id number], Medical injection 4 doses, Branch 150 mg First dose on Sun07/01/21 at 1415, Last dose on Sun03/10/22 at 1415, Routine medroxyPROG 2020-07- No [id number] 150mg Univers ESTERone 06-02 ity of (DEPO-PROVE 20:15: 20:14 [facility]) 00 :00 Medical injection Branch 150 mg medroxyPROG 2020-07- No [id number] 150mg 150 mg, Univers ESTERone 06-02 Intramuscu ity of (DEPO-PROVE 20:15: 20:14 lar, [place] RA) 00 :00 [id number], Medical injection 4 doses, Branch 150 mg First dose on Sun07/01/21 at 1415, Last dose on Sun03/10/22 at 1415, Routine medroxyPROG 2020-07- No [id number] 150mg Univers ESTERone 06-02 ity of (DEPO-PROVE 20:15: 20:14 [facility]) 00 :00 Medical injection Branch 150 mg cephALEXin 2020-07 Yes [id number] 500mg Take 1 Univers (KEFLEX) 2-29 capsule by ity o f 500 mg 00:00: mouth 3 [place] capsule 00 (three) Medical times Branch daily. cephALEXin 2020-07 Yes [id number] 500mg Take 1 Univers (KEFLEX) 2-29 capsule by ity o f 500 mg 00:00: mouth 3 [place] capsule 00 (three) Medical times Branch daily. cephALEXin 2020-07 Yes [id number] 500mg Take 1 Univers (KEFLEX) 2-29 capsule by ity o f 500 mg 00:00: mouth 3 [place] capsule 00 (three) Medical times Branch daily. cephALEXin 2020-07 Yes [id number] 500mg Take 1 Univers (KEFLEX) 2-29 capsule by ity o f 500 mg 00:00: mouth 3 [place] capsule 00 (three) Medical times Branch daily. cephALEXin 2020-07 Yes [id number] 500mg Take 1 Univers (KEFLEX) 2-29 capsule by ity o f 500 mg 00:00: mouth 3 [place] capsule 00 (three) Medical times Branch daily. naproxen 2020-0 Yes [id number] 250mg Take 1 Un evaristo 250 mg 2-09 tablet by ity of tablet 00:00: mouth [place] 00 every 8 Medical (eight) Branch hours as needed for Pain (scale 4-6). Take 500mg followed by 250mg every 6-8 hours naproxen 2020-0 Yes [id number] 250mg Take 1 Un evaristo 250 mg 2-09 tablet by ity of tablet 00:00: mouth [place] 00 every 8 Medical (eight) Branch hours as needed for Pain (scale 4-6). Take 500mg followed by 250mg every 6-8 hours naproxen 2020-0 Yes [id number] 250mg Take 1 Un evarisot 250 mg 2-09 tablet by ity of tablet 00:00: mouth [place] 00 every 8 Medical (eight) Branch hours as needed for Pain (scale 4-6). Take 500mg followed by 250mg every 6-8 hours naproxen 2020-0 Yes [id number] 250mg Take 1 Un evaristo 250 mg 2-09 tablet by ity of tablet 00:00: mouth [place] 00 every 8 Medical (eight) Branch hours as needed for Pain (scale 4-6). Take 500mg followed by 250mg every 6-8 hours naproxen 2020-0 Yes [id number] 250mg Take 1 Un evaristo 250 mg [...] Filled Immunization Date Status Comments [facility] e Immunization Name Name [facility] 2022-03-21 Completed University of 00:00:00 [facility] HPV9 2021-08-31 Completed University of 00:00:00 [facility] HPV9 2021-08-31 Completed University of 00:00:00 [facility] HPV9 2021-08-31 Completed University of 00:00:00 [facility] HPV9 2021-08-31 Completed University of 00:00:00 [facility] HPV9 2021-07-01 Completed University of 00:00:00 [facility] HPV9 2021-07-01 Completed University of 00:00:00 [facility] HPV9 2021-07-01 Completed University of 00:00:00 [facility] HPV9 2021-07-01 Completed University of 00:00:00 [facility] HPV9 2021-07-01 Completed University of 00:00:00 [facility] Influenza Virus 2020-05-06 Completed Universit y of Vaccine Quad .5 mL 00:00:00 [facility] [place] 6+ MO Branch Influenza Virus 2020-05-06 Completed Universit y of Vaccine Quad .5 mL 00:00:00 [facility] IM 6+ MO Branch Influenza Virus 2020-05-06 Completed Universit y of Vaccine Quad .5 mL 00:00:00 [facility] [place] 6+ MO [place] Influenza Virus 2020-05-06 Completed Universit y of Vaccine Quad .5 mL 00:00:00 [facility] IM 6+ MO Branch Influenza Virus 2020-05-06 Completed Universit y of Vaccine Quad .5 mL 00:00:00 [facility] [place] 6+ MO [place] TDAP 2011-10-31 Completed University of 00:00:00 [place] [facility] TDAP 2011-10-31 Completed University of 00:00:00 [place] [facility] TDAP 2011-10-31 Completed University of 00:00:00 [place] [facility] TDAP 2011-10-31 Completed University of 00:00:00 [place] [facility] TDAP 2011-10-31 Completed University of 00:00:00 [facility] Vital Signs Vital Name Observation Time Observation Value Comments Source Systolic blood 2022-03-21 18:47:00 118 mm[Hg] manual Univer sity of pressure [place] [facility] Diastolic blood 2022-03-21 18:47:00 86 mm[Hg] manual Unive rsity of pressure [place] [facility] Heart rate 2022-03-21 18:45:00 77 /min Universi ty of [place] [facility] Body temperature 2022-03-21 18:45:00 36.11 Sushma Univ ersity of [place] [facility] Respiratory rate 2022-03-21 18:45:00 18 /min Univ ersity of [place] [facility] Body height 2022-03-21 18:45:00 154.9 cm Universi ty of [place] [facility] Body weight 2022-03-21 18:45:00 59.149 kg Universi ty of [place] [facility] BMI 2022-03-21 18:45:00 24.64 kg/m2 Universi ty of [place] [facility] Systolic blood 2021-12-27 18:42:00 134 mm[Hg] Univer sity of pressure [place] [facility] Diastolic blood 2021-12-27 18:42:00 86 mm[Hg] Unive rsity of pressure [place] [facility] Heart rate 2021-12-27 18:42:00 84 /min Universi ty of [place] [facility] Body temperature 2021-12-27 18:42:00 36.33 Sushma Univ ersity of [place] [facility] Respiratory rate 2021-12-27 18:42:00 18 /min Univ ersity of [place] [facility] Body weight 2021-12-27 18:42:00 59.92 kg Universi ty of [place] [facility] BMI 2021-12-27 18:42:00 24.96 kg/m2 Universi ty [facility] [place] [facility] Body temperature 2021-10-04 18:44:00 35.83 Sushma Univ ersity of [place] [facility] Respiratory rate 2021-10-04 18:44:00 18 /min Univ ersity of [place] [facility] Body height 2021-10-04 18:44:00 154.9 cm Universi ty of [place] [facility] Body weight 2021-10-04 18:44:00 60.442 kg Universi ty of [place] [facility] BMI 2021-10-04 18:44:00 25.18 kg/m2 Universi ty of [place] [facility] Systolic blood 2021-10-04 18:44:00 128 mm[Hg] Univer sity of pressure [place] [facility] Diastolic blood 2021-10-04 18:44:00 87 mm[Hg] Unive rsity of pressure [place] [facility] Heart rate 2021-10-04 18:44:00 72 /min Universi ty of [place] [facility] Systolic blood 2021-08-31 18:58:00 111 mm[Hg] Univer sity of pressure [place] [facility] Diastolic blood 2021-08-31 18:58:00 71 mm[Hg] Unive rsity of pressure [place] [facility] Heart rate 2021-08-31 18:58:00 82 /min Universi ty of [place] [facility] Body temperature 2021-08-31 18:58:00 36.17 Sushma Univ ersity of [place] [facility] Respiratory rate 2021-08-31 18:58:00 16 /min Univ ersity of [place] [facility] Body height 2021-08-31 18:58:00 154.9 cm Universi ty of [place] [facility] Body weight 2021-08-31 18:58:00 61.236 kg Universi ty of [place] [facility] BMI 2021-08-31 18:58:00 25.51 kg/m2 Universi ty of [place] [facility] Systolic blood 2021-07-01 19:55:00 129 mm[Hg] Univer sity of pressure [place] [facility] Diastolic blood 2021-07-01 19:55:00 92 mm[Hg] Unive rsity of pressure [place] [facility] Heart rate 2021-07-01 19:34:00 82 /min Universi ty of [place] [facility] Body temperature 2021-07-01 19:34:00 36.17 Sushma Univ ersity of [place] [facility] Respiratory rate 2021-07-01 19:34:00 18 /min Univ ersity of [place] [facility] Body height 2021-07-01 19:34:00 154.9 cm [facility] Body weight 2021-07-01 19:34:00 60.963 kg [facility] BMI 2021-07-01 19:34:00 25.39 kg/m2 [facility] Procedures Procedure Date / Time Performed Performing Clinician Mc owen GARDASIL 9 (HPV 9V) 2022-03-21 18:30:38 [facility] 2021-10-04 18:51:00 [facility] (HPV 9V) 2021-08-31 19:03:43 Anna Aguero [facility] GARDASIL 9 (HPV 9V) 2021-07-01 20:10:59 [facility]ilda [facility] Encounters Start End Encounter Admission Attending Care Care Encounter Source Date/Time Date/Time Type Type Clinicians Facility Department ID 2022-07-03 2022-07-03 Outpatient R WILLIAM [facility] [id number] Univers 13:30:00 13:30:00 AWILDA [id number] nguyễn o [facility] 2022-03-21 2022-03-21 Nurse Visit, Ang-Rmchp Nurse [facility] 1.2 .840.114 [id number] Univers 13:30:00 13:45:25 Visit Anna Aguero OPERATING ROOM [facility] [id number] Anatoliy as MATERNAL [id number] Med ical & CHILD [address] [place] [address] 2022-03-21 2022-03-21 Outpatient R [facility] [id number] Univers 13:30:00 13:30:00 [id number] ity [facility] 2022-03-21 2022-03-21 Outpatient R LACI [facility] [id number] Univers 13:30:00 13:30:00 ANNA adrian o f [facility] 2021-12-30 2021-12-30 Outpatient R [facility] [id number] Univers 13:00:00 13:00:00 [id number] ity [facility] 2021-12-30 2021-12-30 Outpatient R [facility] [id number] Univers 13:00:00 13:00:00 ity [facility] 2021-12-27 2021-12-27 [facility] 1.2 .840.114 [id number] Univers 13:30:00 13:47:23 Visit Anna Aguero R OPERATING ROOM ORDERLY 350.1.13.10 ity of [facility] 4.2.7.2.686 Anatoliy as MATERNAL [id number] [facility] ical & CHILD [address] [place] [address] 2021-12-27 2021-12-27 Outpatient R [facility] [id number] Univers 13:30:00 13:30:00 [id number] [facility] 2021-12-27 2021-12-27 [facility] [id number] Univers 13:30:00 13:30:00 ANNA ity o [facility] 2021-11-30 2021-11-30 Outpatient R AKINSIPE, [facility] [id number] Univers 14:30:00 14:30:00 AWILDA [id number] ity o [facility] 2021-11-30 2021-11-30 Outpatient R AKINSIPE, [facility] [id number] Univers 14:30:00 14:30:00 AWILDA ity o [facility] 2021-10-04 2021-10-04 [facility] 1.2 .840.114 [id number] Univers 13:30:00 13:57:52 Visit Anna Aguero R OPERATING ROOM ORDERLY [id number] ity of [facility] 4.2.7.2.686 Anatoliy as MATERNAL [id number] [facility] & CHILD [address] [place] [address] 2021-10-04 2021-10-04 Outpatient R [facility] [id number] Univers 13:30:00 13:30:00 [id number] [facility] 2021-10-04 2021-10-04 Outpatient R LACI [facility] [id number] Univers 13:30:00 13:30:00 ANNA acosta [facility] 2021-09-23 2021-09-23 Outpatient R LACI [facility] [id number] Univers 13:00:00 13:00:00 ANNA acosta [facility] 2021-08-31 2021-08-31 Outpatient R AGUERO, [facility] [id number] Univers 13:30:00 13:30:00 ANNA acosta [facility] 2021-08-31 2021-08-31 Nurse Visit, [facility] Nurse [facility] 1.2 .840.114 [id number] Univers 13:30:00 13:30:00 Visit AgueroAnna owen Anne OPERATING ROOM ORDERLY 350.1.13.10 ity [facility] 4.2.7.2.686 Anatoliy as MATERNAL [id number] [facility] ical & CHILD [address] [place] [address] 2021-07-01 2021-07-01 [facility] [id number] Univers 13:15:00 14:10:58 Visit Awilda Mendez OPERATING ROOM ORDERLY 350.1.13.10 ity of [facility] 4.2.7.2.686 Anatoliy as MATERNAL [id number] [facility] & [address] 2021-07-01 2021-07-01 Outpatient R WILLIAM [facility] [id number] Univers 09:00:00 09:00:00 AWILDA ward [facility] 2021-06-29 2021-06-29 Outpatient R ELISEO [facility] [id number] Univers 13:00:00 13:00:00 MARQUITA [facility] 2021-06-28 2021-06-29 Emergency X DEYSI [facility] ERT [id number] Univers 23:27:00 04:47:00 MARY [facility] 2020-11-01 2020-11-01 Emergency [facility] TRAUMA 1.2.840.114 [id number] 22:05:00 22:06:00 , [facility] 350.1.13.10 [id number] [id number] 2020-11-01 2020-11-01 Emergency Lily Key [facility] 1.2.840.114 [id number] 17:05:00 20:46:00 Ayana Martin 350.1.13.10 Tita 4.2.7.2.686 [place] [id number] 2020-11-01 2020-11-01 Office Laci [facility] 1.2.840.114 [id number] 13:58:16 14:28:58 Visit Anna Rodríguez OPERATING ROOM ORDERLY 350.1.13.10 [facility] 4.2.7.2.686 MATERNAL [id number] & CHILD [address] [place] [address] Results Test Description Test Time Test Comments Results Result Comments Source POCT TEST 2021-10-04 18:51:00 Test Item Value Reference Range Interpretation Comme nts POCT PREG (test code = 1605) Negative On board controls acceptable with C Line (test code = 3574) Yes POCT PREG LOT # (test code = 3575) POCT PREG TEST DATE (test code = 3576) [facility] [id number] 04:03:56 Test Item Value Reference Range Interpretation Comments GLUCOSE (test code = 101 MG/DL 70-99 H 2216) BUN (test code = 10 MG/DL 6-20 2207) CREATININE (test 0.75 MG/DL 0.60-1.30 code = 2214) eGFR (2020 CKD-EPI) 106 >60 (test code = 46426) ML/MIN/1.73 CALC BUN/CREAT (test 13 RATIO 6-28 code = 2235) SODIUM (test code = 141 MEQ/L 863-469 1034) POTASSIUM (test code 4.1 MEQ/L 3.5-5.4 = 8) CHLORIDE (test code 103 MEQ/L 95-107 = 2215) CARBON DIOXIDE (test 24 MEQ/L 19-31 code [...] 329 U/L 5-40 H 2218) HEPATITIS PANEL, [id number] 03:45:56 Test Item Value Reference Range Interpretation Comments HEPATITIS A IgM (test NON-REACTIVE NON-REACTIVE code = 81898) HEPATITIS B CORE IgM NON-REACTIVE NON-REACTIVE (test code = 4644) HEPATITIS B SURF AG NON-REACTIVE NON-REACTIVE (test code = 2739) HEPATITIS C ANTIBODY NON-REACTIVE NON-REACTIVE (test code = 4675) INTERPRETATION (NOTE) Hepatitis A HEPATITIS A: (test serology shows no code = 2552) evidence of acu te hepatitis A. INTERPRETATION (NOTE) Hepatitis B HEPATITIS B: (test serology shows no code = 82920) evidence of ac andrés hepatitis B and no indication of exposure to hepatitis B vir us in the previous si xto eight months. INTERPRETATION (NOTE) Hepatitis C HEPATITIS C: (test serology shows no code = 32349) evidence of ex posure to hepatitisC v irus at this time. I t can take up to 12 m onths after exposure tothe hepatitis C vir us for antibodies to become detectab le in the blood in ce rtain patients. UNLES S OTHERWISE INDIC ATED, ALL TESTING PERFORMED [facility], I [place]. [address] [facility] [place] [address] [facility] DIRECTOR: SUNNY ROWE M.D. CLIA NUMBER [id number] [place] [id number]
[2022-03-25] MEDS ORDERED: NA CHLORIDE 0.9% 1,000 ML ONE (16:49)
[2022-03-25] MEDS ORDERED: ACETAMINOPHEN 325 MG TABLET ONE (16:49)
[2022-03-25 17:01] LABS: Absolute Lymphocytes (CBC) 2.9 K/uL (0.7-4.9); Hematocrit 46.4 % (36.0-45.0); Lymphocytes % 28.7 % (15.3-44.8); RBC Red Blood Cell Count 4.34 M/uL (3.86-4.86)
--- NOTE | 2022-03-25 17:21 | RAD REPORT ---
EXAM DESCRIPTION: RAD - Hand Left 3 View - 03/25/2022 4:55 pm CLINICAL HISTORY: PAIN COMPARISON: No comparisons FINDINGS: No fracture or dislocation seen. Mild soft tissue swelling.
--- NOTE | 2022-03-25 17:22 | RAD REPORT ---
EXAM DESCRIPTION: RAD - Tib Fib Right - 03/25/2022 4:55 pm CLINICAL HISTORY: PAIN COMPARISON: No comparisons FINDINGS: No fracture or dislocation seen.
--- NOTE | 2022-03-25 17:22 | RAD REPORT ---
EXAM DESCRIPTION: RAD - Wrist Left 3 View - 03/25/2022 4:55 pm CLINICAL HISTORY: PAIN Pain COMPARISON: No comparisons FINDINGS: No fracture or dislocation seen. Mild soft tissue swelling is noted.
[2022-03-25 17:25] LABS: Potassium 3.8 mmol/L (3.5-5.1)
[2022-03-25 17:33] LABS: Urine Blood 2+ (Negative); Urine Glucose Negative (Negative); Urine Protein Negative (Negative); Urine Specific Gravity 1.015 (1.005-1.030)
[2022-03-25 18:04] LABS: Urine Specific Gravity/Preg 1.015 (1.005-1.030)
[2022-03-25 18:07] LABS: Blood Morphology Comment NOTED (NOT SEEN); Macrocytosis SLIGHT; Platelet Estimate ADEQ; White Blood Cell Scan OK (OK)
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
[2022-03-27 04:59] VITALS: BP 114/80
[2022-03-27 05:22] VITALS: TEMP 98.1; O2SAT 97
== END 2022-03-25 18:45 | disposition home or self-care (01) ==
LOC: ER 15:58
DX: S80.11XA Contusion of right lower leg, initial encounter (principal); S60.212A Contusion of left wrist, initial encounter; S60.222A Contusion of left hand, initial encounter; F17.210 Nicotine dependence, cigarettes, uncomplicated
CPT/HCPCS: 36415; 70450; 71260; 72125; 74177; 80048; 80320; 81003; 81025; 85025; 99284; J7030; Q9967

== ENCOUNTER 2022-08-24 23:30 | Emergency (ER) | payer SELFPAY ==
[2022-08-25] MEDS ORDERED: LORazepam 2 MG/ML VIAL ONE (00:35)
[2022-08-25] MEDS ORDERED: KETOROLAC 30 MG/ML INJ ONE (00:35)
[2022-08-25 00:36] LABS: Absolute Lymphocytes (CBC) 3.3 K/uL (0.7-4.9); Lymphocytes % 22.6 % (15.3-44.8); MCV 105.5 fL (80-100); MPV 6.6 fL (7.6-11.3)
[2022-08-25 00:50] LABS: Urine Blood 2+ (Negative); Urine Glucose Negative (Negative); Urine Protein Trace (Negative)
[2022-08-25 00:57] LABS: Protime INR 1.2
[2022-08-25 01:05] LABS: Albumin 3.8 g/dL (3.4-5.0); Bilirubin Direct 1.1 mg/dL (0-0.2); Bilirubin Total 1.8 mg/dL (0.2-1.0); Magnesium 2.3 mg/dL (1.6-2.4); Potassium 3.1 mmol/L (3.5-5.1); Protein, Total 8.6 g/dL (6.4-8.2); Troponin High Sensitivity 3.9 pg/mL (<58.9)
[2022-08-25 01:09] LABS: Barbiturates NEGATIVE (NEGATIVE); Benzodiazepines NEGATIVE (NEGATIVE); Cocaine NEGATIVE (NEGATIVE); METHAMPHETAM POSITIVE (NEGATIVE); Methadone NEGATIVE (NEGATIVE); Opiates NEGATIVE (NEGATIVE); Phencyclidine NEGATIVE (NEGATIVE); THC Cannibis POSITIVE (NEGATIVE)
[2022-08-25 01:13] LABS: Blood Morphology Comment NOTED (NOT SEEN); Macrocytosis 1+; Platelet Estimate ADEQ; White Blood Cell Scan OK (OK)
[2022-08-25] MEDS ORDERED: CEFTRIAXONE 1000 MG/VIAL ONE (01:21)
[2022-08-25 02:48] LABS: Urine Specific Gravity/Preg >1.030 (1.005-1.030)
--- NOTE | 2022-08-25 03:24 | ER ---
Nurse's Notes [facility] Name: Sylvia Cruz Age: 37 yrs Sex: Female : 1985 Arrival Date: 08/24/2022 Time: 23:34 Bed 8 Private MD: Diagnosis: Alcohol abuse with intoxication;Alcoholic cirrhosis of liver;UTI/ Urinary tract infection, site not specified;Hypokalemia;Adverse effect of amphetamines Presentation: 08/24 23:45 Chief complaint: Patient states: "I am suppose to be on BP meds, but I have been off tw5 them for a month and I think this is what is causing my sob. My chest hurts so bad. I am an alcoholic and I also smoke marajuana.". Coronavirus screen: Vaccine status: Patient reports receiving the 2nd dose of the covid vaccine. [employer]. Ebola Screen: Patient negative for fever greater than or equal to 101.5 degrees Fahrenheit, and additional compatible Ebola Virus Disease symptoms Patient denies exposure to infectious person. Patient denies travel to an Ebola-affected area in the 21 days before illness onset. Initial Sepsis Screen: Does the patient meet any 2 criteria? No. Patient's initial sepsis screen is negative. Does the patient have a suspected source of infection? No. Patient's initial sepsis screen is negative. Risk Assessment: Do you want to hurt yourself or someone else? Patient reports no desire to harm self or others. Onset of symptoms was August 24, 2022 at 06:00. 23:45 Method Of Arrival: Ambulatory tw5 23:45 Acuity: BONITA 3 tw5 Triage Assessment: 23:47 General: Appears uncomfortable, Behavior is anxious. General: Reports "I smoked some tw5 new weed this morning and the chest pain started after that.". Pain: Pain currently is 10 out of 10 on a pain scale. Respiratory: Reports shortness of breath at rest Onset: The symptoms/episode began/occurred this morning, the patient has mild shortness of breath. 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 - Social history:: Smoking status: Patient reports the use of cigarette tobacco products, smokes one-half pack cigarettes per day, Patient uses alcohol, street drugs, marijuana. Screenin:50 [facility] ED Fall Risk Assessment (Adult) History of falling in the last 3 months, tw5 including since admission No falls in past 3 months (0 pts). Abuse screen: Denies threats or abuse. Denies injuries from another. Nutritional screening: No deficits noted. Tuberculosis screening: No symptoms or risk factors identified. Assessment: 08/25 01:15 General: Appears uncomfortable, Behavior is calm, cooperative. Cardiovascular: Rhythm kd3 is regular. Respiratory: Airway is patent Respiratory effort is even, unlabored, Breath sounds are clear bilaterally. Vital Signs: 08/24 23:45 BP 120 / 89; Pulse 112; Resp 18; Temp 97.9; Pulse Ox 99% on R/A; Weight 52.16 kg; tw5 Height 5 ft. 2 in. (157.48 cm); Pain 6/10; 08/25 00:53 BP 139 / 94; Pulse 109; Resp 19; Temp 98.2(O); Pulse Ox 100% on R/A; kd3 02:09 BP 119 / 84; Pulse 111; Resp 19; Pulse Ox 99% on R/A; kd3 03:37 Pulse 108; Resp 19; Pulse Ox 99% on R/A; kd3 08/24 23:45 Body Mass Index 21.03 (52.16 kg, 157.48 cm) ED Course: 08/24 23:34 Patient arrived in ED. jj6 23:40 Lakhwinder Bills PA is PHCP. cp 23:40 Sanjeev Cummings MD is Attending Physician. cp 23:47 Triage completed. 23:47 Arm band placed on. tw 23:50 Patient has correct armband on for positive identification. 08/25 00:10 Jesús Trejo, RN is Primary Nurse. as6 00:11 Primary Nurse role handed off by Jesús Trejo RN kd3 00:11 Elyssa Gan RN is Primary Nurse. kd3 00:33 XRAY Chest (1 view) In Process Unspecified. EDMS 00:45 CBC Smear Scan Sent. kd3 00:45 ETOH Level Sent. kd3 00:45 Troponin HS Sent. kd3 00:45 PT-INR Sent. kd3 00:45 NT PRO-BNP Sent. kd3 00:45 Magnesium Sent. kd3 00:45 LFT's Sent. kd3 00:45 D-Dimer Sent. kd3 00:45 Basic Metabolic Panel Sent. kd3 00:51 UDS Sent. kd3 02:15 CT Chest For PE Angio In Process Unspecified. EDMS 02:15 CT Abd/Pelvis - IV Contrast Only In Process Unspecified. EDMS 03:22 Krishan Wells MD is Referral Physician. cp 03:35 No provider procedures requiring assistance completed. IV discontinued, intact, kd3 bleeding controlled, No redness/swelling at site. Pressure dressing applied. Administered Medications: 00:25 CANCELLED (Physician Discretion): Ativan (LORazepam) 0.5 mg IVP once; if test cp negative 00:44 Drug: Ketorolac 15 mg Route: IVP; Site: right antecubital; kd3 03:38 Follow up: Response: No adverse reaction; Pain is decreased kd3 00:45 Drug: Ativan (LORazepam) 0.5 mg Route: IVP; Site: right antecubital; kd3 03:38 Follow up: Response: No adverse reaction; Anxiety decreased kd3 01:17 Drug: Rocephin (cefTRIAXone) 1 grams Route: IV; Rate: calculated rate; Site: right kd3 antecubital; 03:38 Follow up: Response: No adverse reaction; IV Status: Completed infusion kd3 03:34 Drug: Potassium Chloride 40 mEq Route: PO; kd3 03:37 Follow up: Response: No adverse reaction kd3 03:35 Drug: Potassium Effervescent Tablet 50 mEq Route: PO; kd3 03:37 Follow up: Response: No adverse reaction kd3 Medication: 02:09 VIS not applicable for this client. kd3 Outcome: 03:23 Discharge ordered by . cp 03:35 Discharged to home ambulatory. kd3 03:35 Condition: stable 03:35 Discharge instructions given to patient, Instructed on discharge instructions, follow up and referral plans. medication usage, Demonstrated understanding of instructions, follow-up care, medications, Prescriptions given X 2. 03:38 Patient left the ED. kd3 Signatures: Dispatcher [employer] EDMS Lakhwinder Bills PA PA cp Wood, Tiffany tw5 Sita Neville6 Jesús Trejo RN RN as6 Elyssa Gan RN RN kd3
--- NOTE | 2022-08-25 03:24 | EDPHYS ---
Physician Documentation [facility] Name: Sylvia Cruz Age: 37 yrs Sex: Female : 1985 Arrival Date: 08/24/2022 Time: 23:34 Bed 8 Private MD: ED Physician Sanjeev Cummings HPI: 08/25 00:00 This 37 yrs old Female presents to ER via Ambulatory with complaints of High cp Blood Pressure, Shortness Of Breath. 00:00 The patient or guardian reports chest pain that is located primarily in the anterior cp chest wall, left. 00:00 Onset: The symptoms/episode began/occurred today. cp 00:00 Associated signs and symptoms: Pertinent positives: elevated blood pressure and cp shortness of breath. Duration: The patient or guardian reports a single episode, that is still ongoing, and unchanged. Patient admits to drinking alcohol this evening and smoking marijuana. Reports receiving marijuana from new dealer. Patient reports PMHX significant for alcoholic cirrhosis. 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 - Social history:: Smoking status: Patient reports the use of cigarette tobacco products, smokes one-half pack cigarettes per day, Patient uses alcohol, street drugs, marijuana. ROS: 08/25 00:05 Constitutional: Negative for body aches, chills, fever, poor PO intake. cp 00:05 Cardiovascular: Positive for chest pain, of the left side of chest. cp 00:05 Eyes: Negative for injury, pain, redness, and discharge. cp 00:05 Respiratory: Positive for shortness of breath, at rest. 00:05 Abdomen/GI: Negative for abdominal pain, vomiting, diarrhea, constipation. 00:05 ENT: Negative for drainage from ear(s), ear pain, sore throat, difficulty swallowing, cp difficulty handling secretions. 00:05 Neuro: Negative for altered mental status, dizziness, headache, seizure activity, syncope, weakness. 00:05 All other systems are negative. Exam: 00:02 ECG was reviewed by the Attending Physician. cp 00:10 Constitutional: The patient appears in no acute distress, alert, awake, cp non-diaphoretic, non-toxic, well developed, well nourished, anxious, uncomfortable. 00:10 Head/Face: Normocephalic, atraumatic. cp 00:10 Eyes: Periorbital structures: appear normal, Pupils: equal, round, and reactive to light and accomodation, Extraocular movements: intact throughout, Conjunctiva: normal, no exudate, no injection, Sclera: no appreciated abnormality, Lids and lashes: appear normal, bilaterally. 00:10 ENT: External ear(s): are unremarkable, Nose: is normal, Mouth: Lips: moist, Oral mucosa: pink and intact, moist, Posterior pharynx: is normal, airway is patent, no erythema, no exudate. 00:10 Neck: ROM/movement: is normal, is supple, without pain, no range of motions limitations. 00:10 Chest/axilla: Inspection: normal. 00:10 Cardiovascular: Rate: tachycardic, Rhythm: regular. 00:10 Respiratory: the patient does not display signs of respiratory distress, Respirations: normal, no use of accessory muscles, no retractions, labored breathing, is not present, Breath sounds: are clear throughout, no decreased breath sounds, no stridor, no wheezing. 00:10 Abdomen/GI: Inspection: abdomen appears normal, Palpation: abdomen is soft and non-tender, in all quadrants. 00:10 Back: pain, is absent, ROM is normal. 00:10 Neuro: Orientation: to person, place \T\ time. Mentation: is normal, Motor: moves all fours, strength is normal, Sensation: no obvious gross deficits, Gait: is steady. Vital Signs: 08/24 23:45 BP 120 / 89; Pulse 112; Resp 18; Temp 97.9; Pulse Ox 99% on R/A; Weight 52.16 kg; tw5 Height 5 ft. 2 in. (157.48 cm); Pain 12/09; 08/25 00:53 BP 139 / 94; Pulse 109; Resp 19; Temp 98.2(O); Pulse Ox 100% on R/A; kd3 02:09 BP 119 / 84; Pulse 111; Resp 19; Pulse Ox 99% on R/A; kd3 03:37 Pulse 108; Resp 19; Pulse Ox 99% on R/A; kd3 08/24 23:45 Body Mass Index 21.03 (52.16 kg, 157.48 cm) tw5 MDM: 00:00 Patient medically screened. 03:22 Data reviewed: vital signs, nurses notes, lab test result(s), EKG, radiologic studies, cp CT scan, plain films. 03:22 Differential diagnosis: abnormal EKG, acute myocardial infarction, acute pericarditis, cp chest wall pain, hypertensive crisis, Malignant HTN. Consideration of Admission/Observation Escalation of care including admission/observation considered. I considered the following discharge prescriptions or medication management in the emergency department Medications were administered in the Emergency Department. See MAR. Care significantly affected by the following chronic conditions: Hypertension, Liver Disease. 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 Response to treatment: the patient's symptoms have markedly improved after treatment, and as a result, I will discharge patient. Special discussion: Based on the patient's history, exam, and Dx evaluation, there is no indication for emergent intervention or inpatient Tx. It is understood by the patient/guardian that if the Sx's persist or worsen they need to return immediately for re-evaluation. 08/25 00:01 Order name: Basic Metabolic Panel; Complete Time: 01:11 cp 08/25 02:11 Interpretation: Normal except: K 3.1; BUN 6; CRE 0.51. cp 08/25 00:01 Order name: CBC with Diff; Complete Time: 02:11 cp 08/25 02:11 Interpretation: Normal except: WBC 14.60; RBC 3.60; MCV 105.5; MCH 35.8; MPV 6.6; NEUT cp A 9.7. 08/25 00:01 Order name: D-Dimer; Complete Time: 01:11 cp 08/25 02:11 Interpretation: Abnormal: D-DIMER 516. cp 08/25 00:01 Order name: LFT's; Complete Time: 01:11 cp 08/25 02:12 Interpretation: Normal except: AST 333; ALT 128; ALK 217; BILIT 1.8; BILID 1.1; TP 8.6; cp GLOB 4.8; A/G 0.8. 08/25 00:01 Order name: Magnesium; Complete Time: 01:11 cp 08/25 00:01 Order name: NT PRO-BNP; Complete Time: 01:11 cp 08/25 02:12 Interpretation: Abnormal: NT PRO-BNP 178. cp 08/25 00:01 Order name: PT-INR; Complete Time: 01:11 cp 08/25 02:12 Interpretation: Abnormal: PT 13.2. cp 08/25 00:01 Order name: Troponin HS; Complete Time: 01:11 cp 08/25 00:01 Order name: UDS; Complete Time: 01:11 cp 08/25 02:12 Interpretation: Normal except: METHAMPHETAMINE POSITIVE; THC POSITIVE. cp 08/25 00:01 Order name: ETOH Level; Complete Time: 01:11 cp 08/25 02:12 Interpretation: Abnormal: ETOH 298. cp 08/25 00:42 Order name: CBC Smear Scan; Complete Time: 02:11 EDMS 08/25 00:50 Order name: Urine Dipstick-Ancillary; Complete Time: 01:11 EDMS 08/25 02:12 Interpretation: Normal except: UBLD 2+; UPROT Trace; UNIT Positive; UESTR Trace. cp 08/25 02:38 Order name: Urine --Ancillary (enter results); Complete Time: 03:14 wm 08/25 03:15 Interpretation: USPGR PREG >1.030; Reviewed. cp 08/25 00:01 Order name: XRAY Chest (1 view) cp 08/25 00:01 Order name: EKG; Complete Time: 00:03 cp 08/25 00:01 Order name: Cardiac monitoring; Complete Time: 00:45 cp 08/25 00:01 Order name: EKG - Nurse/Tech; Complete Time: 00:45 cp 08/25 00:01 Order name: IV Saline Lock; Complete Time: 00:45 cp 08/25 00:01 Order name: Labs collected and sent; Complete Time: 00:45 cp 08/25 00:01 Order name: O2 Per Protocol; Complete Time: 00:45 cp 02 00:01 Order name: O2 Sat Monitoring; Complete Time: 00:45 cp 08/25 01:13 Order name: CT Chest For PE Angio cp 08/25 01:13 Order name: CT Abd/Pelvis - IV Contrast Only cp 08/25 00:01 Order name: Urine Test (obtain specimen); Complete Time: 00:51 cp 08/25 00:01 Order name: Urine Dipstick-Ancillary (obtain specimen); Complete Time: 00:51 cp EC:02 Rate is 112 beats/min. Rhythm is regular. [place] interval is normal. QRS interval is cp normal. QT interval is normal. Interpreted by me. Reviewed by me. Administered Medications: 00:25 CANCELLED (Physician Discretion): Ativan (LORazepam) 0.5 mg IVP once; if test cp negative 00:44 Drug: Ketorolac 15 mg Route: IVP; Site: right antecubital; kd3 03:38 Follow up: Response: No adverse reaction; Pain is decreased kd3 00:45 Drug: Ativan (LORazepam) 0.5 mg Route: IVP; Site: right antecubital; kd3 03:38 Follow up: Response: No adverse reaction; Anxiety decreased kd3 01:17 Drug: Rocephin (cefTRIAXone) 1 grams Route: IV; Rate: calculated rate; Site: right kd3 antecubital; 03:38 Follow up: Response: No adverse reaction; IV Status: Completed infusion kd3 03:34 Drug: Potassium Chloride 40 mEq Route: PO; kd3 03:37 Follow up: Response: No adverse reaction kd3 03:35 Drug: Potassium Effervescent Tablet 50 mEq Route: PO; kd3 03:37 Follow up: Response: No adverse reaction kd3 Disposition Summary: 08/25/22 03:23 Discharge Ordered Location: Home cp Problem: new cp Symptoms: have improved cp Condition: Stable cp Diagnosis - Alcohol abuse with intoxication cp - Alcoholic cirrhosis of liver cp - UTI/ Urinary tract infection, site not specified cp - Hypokalemia cp - Adverse effect of amphetamines cp Followup: cp - With: Krishan Wells MD - When: 2 - 3 days - Reason: alcoholic cirrhosis Followup: cp - With: Private Physician - When: 2 - 3 days - Reason: Recheck today's complaints Discharge Instructions: - Discharge Summary Sheet cp - Alcohol Intoxication cp - Potassium Content of Foods cp - Urinary Tract Infection, Adult cp - Alcohol Abuse and Nutrition cp - Methamphetamines Use Disorder cp - Hypokalemia cp - Alcohol Abuse and Dependence Information, Adult cp Forms: - Medication Reconciliation Form cp - Thank You Letter cp - Antibiotic Education cp - Prescription Opioid Use cp Prescriptions: - Potassium Chloride 10 mEq Oral capsule, extended release - take 2 tablet by ORAL route once daily; 6 tablet; Refills: 0, Product Selection cp Permitted - cefpodoxime 200 mg Oral Tablet - take 1 tablet by ORAL route every 12 hours for 7 days with food; 14 tablet; cp Refills: 0, Product Selection Permitted Addendum: 08/27/2022 07:43 Co-signature as Attending Physician, Sanjeev Cummings MD I reviewed the patient's care r n provided by the Advanced Practice Provider and agree with the diagnosis and treatment plan. Signatures: Dispatcher [employer] EDMS Sanjeev Cummings MD MD rn Page, Corey, PA PA cp Wood, Tiffany tw5 Elyssa Gan RN RN kd3 Corrections: (The following items were deleted from the chart) 08/25 00:25 00:01 Ativan (LORazepam) 0.5 mg IVP once; if test negative ordered. cp cp
[2022-08-25] MEDS ORDERED: POTASSIUM CL SA 10 MEQ TAB PO ONE (03:25)
[2022-08-25] MEDS ORDERED: POTASSIUM 25 MEQ EFFERV TAB ONE (03:26)
[2022-08-25 04:29] VITALS: TEMP 98.2
[2022-08-25 04:30] VITALS: BP 119/84; O2SAT 99
--- NOTE | 2022-08-25 10:48 | RAD REPORT ---
EXAM DESCRIPTION: CT - Chest For Pe Angio - 08/25/2022 6:53 am CLINICAL HISTORY: The patient is 37 years old and is Female; CHEST PAIN TECHNIQUE: Axial computed tomographic angiography images of the chest with intravenous contrast. S agittal and coronal reformatted images were created and reviewed. This CT exam was performed using one or more of the following dose reduction techniques: automated exposure control, adjustment of t he mA and/or kV according to patient size, and/or use of iterative reconstruction technique. MIP re constructed images were created and reviewed. COMPARISON: No relevant prior studies available. FINDINGS: Pulmonary arteries: Unremarkable. No pulmonary embolism. Aorta: No acute findings. No thoracic aortic aneurysm. Lungs: Unremarkable. No mass. No consolidation. Pleural space: Unremarkable. No significant effusion. No pneumothorax. Heart: Unremarkable. No cardiomegaly. No significant pericardial effusion. No evidence of RV dysfunction. Bones/joints: No acute fracture. No dislocation. Soft tissues: Unremarkable. Lymph nodes: Unremarkable. No enlarged lymph nodes. * A single impression for all exams can be found at the end of this report EXAM DESCRIPTION: CT Abdomen and Pelvis With Intravenous Contrast CLINICAL HISTORY: The patient is 37 years old and is Female; CHEST PAIN TECHNIQUE: Axial computed tomography images of the abdomen and pelvis with intravenous contrast. S agittal and coronal reformatted images were created and reviewed. This CT exam was performed using one or more of the following dose reduction techniques: automated exposure control, adjustment of t he mA and/or kV according to patient size, and/or use of iterative reconstruction technique. COMPARISON: No relevant prior studies available. FINDINGS: Lung bases: Unremarkable. No mass. No consolidation. ABDOMEN: Liver: Hepatomegaly with diffuse hepatic steatosis. Gallbladder and bile ducts: Unremarkable. No calcified stones. No ductal dilation. Pancreas: Unremarkable. No mass. No ductal dilation. Spleen: Unremarkable. No splenomegaly. Adrenals: Unremarkable. No mass. Kidneys and ureters: Unremarkable. No solid mass. No hydronephrosis. Stomach and bowel: Unremarkable. No obstruction. No mucosal thickening. PELVIS: Appendix: No findings to suggest acute appendicitis. Bladder: Unremarkable. Reproductive: Unremarkable as visualized. ABDOMEN and PELVIS: Intraperitoneal space: Unremarkable. No free air. No significant fluid collection. Bones/joints: No acute fracture. No dislocation. Soft tissues: Unremarkable. Vasculature: Unremarkable. No abdominal aortic aneurysm. Lymph nodes: Unremarkable. No enlarged lymph nodes. * A single impression for all exams can be found at the end of this report IMPRESSION: CT Angiography Chest With Intravenous Contrast: No acute finding in the chest. No evidence of pulmonary embolism. CT Abdomen and Pelvis With Intravenous Contrast: Hepatomegaly with diffuse hepatic steatosis. Electronically signed by: Freddy James MD 08/25/2022 3:09 AM METAL TURNER Due to temporary technical issues with the PACS/Fluency reporting system, reports are being signed by the in house radiologists without review as a courtesy to insure prompt reporting. The interpreting radiologist is fully responsible for the content of the report.
--- NOTE | 2022-08-25 10:54 | RAD REPORT ---
EXAM DESCRIPTION: CT - Abdomen Pelvis W Contrast - 08/25/2022 6:53 am CLINICAL HISTORY: The patient is 37 years old and is Female; CHEST PAIN TECHNIQUE: Axial computed tomographic angiography images of the chest with intravenous contrast. S agittal and coronal reformatted images were created and reviewed. This CT exam was performed using one or more of the following dose reduction techniques: automated exposure control, adjustment of t he mA and/or kV according to patient size, and/or use of iterative reconstruction technique. MIP re constructed images were created and reviewed. COMPARISON: No relevant prior studies available. FINDINGS: Pulmonary arteries: Unremarkable. No pulmonary embolism. Aorta: No acute findings. No thoracic aortic aneurysm. Lungs: Unremarkable. No mass. No consolidation. Pleural space: Unremarkable. No significant effusion. No pneumothorax. Heart: Unremarkable. No cardiomegaly. No significant pericardial effusion. No evidence of RV dysfunction. Bones/joints: No acute fracture. No dislocation. Soft tissues: Unremarkable. Lymph nodes: Unremarkable. No enlarged lymph nodes. * A single impression for all exams can be found at the end of this report EXAM DESCRIPTION: CT Abdomen and Pelvis With Intravenous Contrast CLINICAL HISTORY: The patient is 37 years old and is Female; CHEST PAIN TECHNIQUE: Axial computed tomography images of the abdomen and pelvis with intravenous contrast. S agittal and coronal reformatted images were created and reviewed. This CT exam was performed using one or more of the following dose reduction techniques: automated exposure control, adjustment of t he mA and/or kV according to patient size, and/or use of iterative reconstruction technique. COMPARISON: No relevant prior studies available. FINDINGS: Lung bases: Unremarkable. No mass. No consolidation. ABDOMEN: Liver: Hepatomegaly with diffuse hepatic steatosis. Gallbladder and bile ducts: Unremarkable. No calcified stones. No ductal dilation. Pancreas: Unremarkable. No mass. No ductal dilation. Spleen: Unremarkable. No splenomegaly. Adrenals: Unremarkable. No mass. Kidneys and ureters: Unremarkable. No solid mass. No hydronephrosis. Stomach and bowel: Unremarkable. No obstruction. No mucosal thickening. PELVIS: Appendix: No findings to suggest acute appendicitis. Bladder: Unremarkable. Reproductive: Unremarkable as visualized. ABDOMEN and PELVIS: Intraperitoneal space: Unremarkable. No free air. No significant fluid collection. Bones/joints: No acute fracture. No dislocation. Soft tissues: Unremarkable. Vasculature: Unremarkable. No abdominal aortic aneurysm. Lymph nodes: Unremarkable. No enlarged lymph nodes. * A single impression for all exams can be found at the end of this report IMPRESSION: CT Angiography Chest With Intravenous Contrast: No acute finding in the chest. No evidence of pulmonary embolism. CT Abdomen and Pelvis With Intravenous Contrast: Hepatomegaly with diffuse hepatic steatosis. Electronically signed by: Freddy James MD 08/25/2022 3:09 AM SUPPLY PLANNER Due to temporary technical issues with the PACS/Fluency reporting system, reports are being signed by the in house radiologists without review as a courtesy to insure prompt reporting. The interpreting radiologist is fully responsible for the content of the report.
--- NOTE | 2022-08-25 13:19 | EKG ---
Test Date: 2022-08-24 Test Time: 23:56:05 Pleater: TW MEASUREMENT RESULTS: Intervals: Rate: 112 NE: 128 QRSD: 62 QT: 334 QTc: 455 [place]: P: 65 NE: 128 QRS: 44 T: 20 INTERPRETIVE STATEMENTS: Sinus tachycardia Otherwise normal ECG Compared to ECG 12/03/2021 21:23:19 No significant changes Electronically Signed On 08-25-22 13:18:02 MANAGER OF REVENUE by Wilmer Guzman
--- NOTE | 2022-08-25 21:55 | RAD REPORT ---
EXAM DESCRIPTION: RAD - Chest Single View - 08/25/2022 12:31 am CLINICAL HISTORY: The patient is 37 years old and is Female; CHEST PAIN TECHNIQUE: Frontal view of the chest. COMPARISON: No relevant prior studies available. FINDINGS: Lungs: Mildly prominent interstitial markings. No consolidation. Pleural space: Unremarkable. No pneumothorax. Heart: Unremarkable. Mediastinum: Unremarkable. Bones/joints: Unremarkable. IMPRESSION: Mildly prominent interstitial markings. No consolidation. Electronically signed by: Freddy James MD 08/25/2022 12:46 AM ROLLING DOWN MACHINE OPERATOR Due to temporary technical issues with the PACS/Fluency reporting system, reports are being signed by the in house radiologists without review as a courtesy to insure prompt reporting. The interpreting radiologist is fully responsible for the content of the report.
== END 2022-08-25 03:38 | disposition home or self-care (01) ==
LOC: ER 23:30
DX: F10.129 Alcohol abuse with intoxication, unspecified (principal); K70.30 Alcoholic cirrhosis of liver without ascites; N39.0 Urinary tract infection, site not specified; E87.6 Hypokalemia; T43.625A Adverse effect of amphetamines, initial encounter
CPT/HCPCS: 36415; 71045; 71275; 74177; 80048; 80076; 80307; 81003; 81025; 83735; 83880; 84484; 85025; 85379; 85610; 93005; 96365; 96366; 96375; 99284; G0480; Q9967

== ENCOUNTER 2023-01-30 19:47 | Emergency (ER) | payer OTHER ==
[2023-01-30 20:56] LABS: Absolute Lymphocytes (CBC) 3.6 K/uL (0.7-4.9); Hematocrit 33.2 % (36.0-45.0); Lymphocytes % 23.9 % (15.3-44.8); MCV 107.2 fL (80-100); MPV 6.4 fL (7.6-11.3)
[2023-01-30] MEDS ORDERED: NA CHLORIDE 0.9% 1,000 ML ONE (20:59)
[2023-01-30] MEDS ORDERED: ONDANSETRON 4 MG/2 ML VIAL ONE (20:59)
[2023-01-30] MEDS ORDERED: KETOROLAC 30 MG/ML INJ ONE (20:59)
[2023-01-30 21:18] LABS: ALT/SGPT 62 U/L (13-56); AST/SGOT 169 U/L (15-37); Albumin 3.4 g/dL (3.4-5.0); Alkaline Phosphatase 158 U/L (45-117); BUN Blood Urea Nitrogen 9 mg/dL (7-18); Bicarbonate 26 mEq/L (21-32); Bilirubin Direct 0.6 mg/dL (0-0.2); Bilirubin Indirect, Calculated 0.4 mg/dL (0.2-0.8); Glomerular Filtration Rate 120 ml/min (=/>90); Glucose Level 110 mg/dL (74-106); Potassium 3.5 mEq/L (3.5-5.1); Protein, Total 8.2 g/dL (6.4-8.2); Sodium Level 144 mEq/L (136-145)
[2023-01-30 21:22] LABS: Protime INR 1.19
[2023-01-30 21:55] LABS: Specific Gravity 1.013 (1.005-1.030)
[2023-01-30 22:02] LABS: Specific Gravity 1.013 (1.005-1.030); Urine Bacteria None Seen /HPF (<20); Urine Bilirubin NEGATIVE (Negative); Urine Blood Negative (Negative); Urine Clarity Turbid (Clear); Urine Color Yellow (Yellow); Urine Glucose NEGATIVE (Negative); Urine Mucus Slight /HPF (None Seen); Urine Protein NEGATIVE (Negative); Urine Urobilinogen 3+ (Normal); Urine pH 6.5 (5.0-7.0)
[2023-01-30 22:06] LABS: Barbiturates NEGATIVE (NEGATIVE); Benzodiazepines POSITIVE (NEGATIVE); Cocaine NEGATIVE (NEGATIVE); METHAMPHETAM NEGATIVE (NEGATIVE); Methadone NEGATIVE (NEGATIVE); Opiates NEGATIVE (NEGATIVE); Phencyclidine NEGATIVE (NEGATIVE); THC Cannibis NEGATIVE (NEGATIVE)
[2023-01-30] MEDS ORDERED: THIAMINE 200 MG/2 ML INJ ONE (22:06)
[2023-01-30] MEDS ORDERED: MORPHINE 2 MG/ML SYR ONE (23:15)
[2023-01-30] MEDS ORDERED: IBUPROFEN 400 MG TAB ONE (23:15)
[2023-01-31 00:51] LABS: Lipase 97 U/L (13-75)
--- NOTE | 2023-01-31 01:13 | EDPHYS ---
Physician Documentation [facility] Name: Sylvia Cruz Age: 37 yrs Sex: Female : 1985 Arrival Date: 01/30/2023 Time: 19:47 Bed 15 Private MD: ED Physician Enrique Zhu HPI: 01/30 20:10 This 37 yrs old Female presents to ER via EMS with complaints of Altered sp4 Mental Status. 21:01 37-year-old female presents with EMS for alcohol intoxication, and generalized sp4 weakness, multiple falls at home, and a passing out episode at home 1 hour prior to arrival. Patient's mother states that patient fell face down on the floor was found laying on the floor about 1 hour prior to arrival. Patient has history of extensive alcohol abuse. Patient was here last time on 01/19/2023 for anxiety and alcohol intoxication. Patient at that time was discharged home with following medication - chlordiazepoxide HCl 25 mg Oral capsule - take 1 capsule by ORAL route as directed as needed for anxiety; 55 capsule; [facility] Refills: 0, Product Selection Permitted - ondansetron 4 mg Oral Tablet,disintegrating - take 1 tablet by ORAL route every 6-8 hours for 7 days; 25 tablet; Refills: 0, [facility] Product Selection Permitted - Protonix 40 mg Oral Tablet - take 1 tablet by ORAL route once daily; 30 tablet; Refills: 0, Product . Historical: - Allergies: 20:03 No Known Allergies; eh3 - Home Meds: 20:03 Xanax 5 mg Oral daily for Anxiety with Depression, Panic Disorder [Active]; eh3 chlordiazepoxide HCl 25 mg Oral capsule 2 cap 4 times per day [Active]; sertraline oral [Active]; - PMHx: 20:03 Alcoholism; Bipolar disorder; cirrhosis of liver; Depression; Hypertension; eh3 - PSHx: 20:03 Sternum Reconstruction; eh3 - Immunization history:: Adult Immunizations unknown. - Social history:: Smoking status: unknown. ROS: 21:07 Constitutional: Negative for fever, chills, and weight loss, positive alcohol use, sp4 positive generalized weakness , positive also fall at home Abdomen/GI: Negative for nausea, vomiting, diarrhea, and constipation, positive for lower abdominal pain 21:07 All other systems are negative. Exam: 21:07 Constitutional: This is a well developed, well nourished patient who is awake, appears sp4 somnolent, ill-appearing female, jaundiced diffusely, multiple contusions specifically left shoulder contusion left upper and right upper arm contusions with hematomas, multiple contusions bilateral lower extremities, abrasions to the forehead Head/Face: Normocephalic, multiple forehead abrasions from reported fall Eyes: Pupils equal round and reactive to light, extra-ocular motions intact. Lids and lashes normal. Conjunctiva and sclera are not injected. Cornea within normal limits. Periorbital areas with no swelling, redness, or edema. Bilaterally icteric conjunctiva ENT: Nares patent. No nasal discharge, no septal abnormalities noted. Tympanic membranes are normal and external auditory canals are clear. Oropharynx with no redness, swelling, or masses, exudates, or evidence of obstruction, uvula midline. Mucous membranes moist. Neck: Trachea midline, no thyromegaly or masses palpated, and no cervical lymphadenopathy. Supple, full range of motion without nuchal rigidity, or vertebral point tenderness. Chest/axilla: Normal chest wall appearance and motion. Nontender with no deformity. No lesions are appreciated. Cardiovascular: Regular rate and rhythm with a normal S1 and S2. No gallops, murmurs, or rubs. Normal PMI, no JVD. No pulse deficits. Respiratory: Lungs have equal breath sounds bilaterally, clear to auscultation and percussion. No rales, rhonchi or wheezes noted. No increased work of breathing, no retractions or nasal flaring. Abdomen/GI: Soft, non-tender, with normal bowel sounds. No distension or tympany. No guarding or rebound. No evidence of tenderness throughout. Back: No spinal tenderness. No costovertebral tenderness. Skin: Warm, dry with normal turgor. Normal color with no rashes, no lesions, and no evidence of cellulitis. MS/ Extremity: Pulses equal, no cyanosis. Neurovascular intact. Full, normal range of motion. Neuro: Awake and alert, GCS 15, oriented to person, place, Cranial nerves II-XII grossly intact. Motor strength 5/5 in all extremities. Sensory grossly intact. Patient is awake but appears intoxicated Psych: Awake, alert, with orientation to person, place, patient appears intoxicated 21:11 ECG was reviewed by the Attending Physician. EKG time 2102, normal sinus rhythm at a sp4 rate of 97 there is prolonged QT, no ST elevation depression, no ectopy otherwise normal EKG Vital Signs: 19:59 BP 108 / 74; Pulse 98; Resp 20; Pulse Ox 99% on R/A; eh3 19:59 Weight 45.81 kg; Height 5 ft. 1 in. ; eh3 21:00 BP 112 / 79; Pulse 105; Resp 18; Pulse Ox 97% on R/A; eh3 22:29 BP 113 / 68; Pulse 91; Resp 16; Pulse Ox 100% on R/A; jb4 23:35 BP 117 / 88; Pulse 93; Resp 16; Pulse Ox 97% on R/A; jb4 01/31 00:42 BP 99 / 68; Pulse 93; Resp 16; Pulse Ox 97% on R/A; jb4 01/30 19:59 Body Mass Index 19.08 (45.81 kg, 154.94 cm) 3 MDM: 01/30 20:21 Patient medically screened. sp4 01/31 00:23 Differential Diagnosis: electrolyte abnormality, alcohol intoxication, hypoglycemia, sp4 intracranial bleed, meningitis, overdose, pneumonia, seizure, sepsis. Data reviewed: vital signs, nurses notes, EMS record, old medical records, lab test result(s), radiologic studies, CT scan. ED course: CT report today reveals, unremarkable CT head with no fluid collection or intracranial hemorrhage. No acute intracranial or cervical spine abnormality, mild central mesenteric fat stranding not readily appreciated on prior exam nonspecific given history of intoxication recommend correlation with lipase level to evaluate for acute pancreatitis. 00:25 ED course: Other CT findings revealed no groundglass opacification subpleural right sp4 upper lobe favors infectious or inflammatory process. No dedicated imaging follow-up recommended. Hyperattenuating focus in the right adnexa suspicious for hemorrhagic cyst no dedicated follow-up recommended.. ED course: Patient's overall alcohol level was quite high at 354 suggesting systematic alcohol ingestion. Patient was advised not to take her Librium and drink alcohol at the same time.. 00:28 ED course: Full CT report- IMPRESSION: 1. No acute intracranial or cervical spine sp4 abnormality. 2. Mild central mesenteric fat stranding, not readily appreciated on prior exam. Nonspecific but given history of intoxication, recommend correlation with lipase levels to evaluate for acute pancreatitis. 3. Small focal area of groundglass opacity within the subpleural right upper lobe (axial image 28/129). Nonspecific but favors an infectious or inflammatory process given patient age. No dedicated imaging follow-up recommended. 4. Hyperattenuating 2.3 cm focus in the right adnexa (axial image 100/129), suspicious for a hemorrhagic cyst. In the absence of symptoms, no dedicated imaging follow-up recommended. 5. PROCEDURE: CT Head and CT C-spine, CT Chest, Abdomen and Pelvis Without Intravenous Contrast CLINICAL INDICATION: The patient is 37 years old and is Female; fall at home , head injury , intoxication [facility]. 01:08 Consideration of Admission/Observation Escalation of care including sp4 admission/observation considered. ED course: Patient's essentially heavily intoxicated and has signs of liver damage acute alcoholic hepatitis. No sign of fulminant liver failure. Patient was advised strongly to discontinue alcohol abuse and enter rehabilitation with a detoxification unit. Strongly to stay away from alcohol. Also join alcoholic Anonymous or other support groups. Patient at this time is more alert and stable for discharge home. . 01/30 20:19 Order name: Acetaminophen; Complete Time: 01:04 sp4 01/30 20:19 Order name: Basic Metabolic Panel; Complete Time: 01:04 sp4 01/30 20:19 Order name: CBC with Diff; Complete Time: 21:45 sp4 01/30 20:19 Order name: ETOH Level; Complete Time: 21:45 sp4 01/30 20:19 Order name: Hepatic Function; Complete Time: 01:04 sp4 01/30 20:19 Order name: PT-INR; Complete Time: 21:45 sp4 01/30 20:19 Order name: Test, Urine; Complete Time: 22:44 sp4 01/30 20:19 Order name: Ptt, Activated; Complete Time: 21:45 sp4 01/30 20:19 Order name: Salicylate; Complete Time: 22:44 sp4 01/30 20:19 Order name: Urinalysis w/ reflexes; Complete Time: 22:44 sp4 01/30 20:19 Order name: Urine Drug Screen; Complete Time: 22:44 sp4 01/31 00:31 Order name: Lipase; Complete Time: 01:04 EDMS 01/30 20:20 Order name: CT Traumagram (Head C Spine CAP wo con) sp4 01/30 20:19 Order name: EKG; Complete Time: 20:20 sp4 01/30 20:19 Order name: EKG - Nurse/Tech; Complete Time: 21:06 sp4 01/30 20:19 Order name: IV Saline Lock; Complete Time: 21:06 sp4 01/30 20:19 Order name: Labs collected and sent; Complete Time: 21:06 sp4 01/30 20:19 Order name: Suicide Screening ([place]); Complete Time: 21:06 sp4 EC/01 21:11 Rate is 97 beats/min. Rhythm is regular, Normal Sinus Rhythm. QRS [place] is Normal. [place] sp4 interval is normal. QRS interval is normal. QT interval is prolonged. No Q waves. T waves are Normal. No ST changes noted. Clinical impression: No evidence of ischemia. Interpreted by me. Administered Medications: 20:45 Drug: Ketorolac IVP 30 mg Route: IVP; Site: left antecubital; eh3 20:45 Drug: NS 0.9% IV 1000 ml Route: IV; Rate: 125 ml/hr; Site: left antecubital; eh3 20:45 Drug: Ondansetron IVP 4 mg Route: IVP; Site: left antecubital; eh3 21:58 Drug: Thiamine IV 100 mg Route: IV; Rate: bolus; Site: left antecubital; jb4 23:16 Drug: Ibuprofen PO 400 mg Route: PO; jb4 23:16 Drug: morphine IVP or IV 2 mg Route: IVP; Infused Over: 4 mins; Site: left antecubital; jb4 Disposition Summary: 01/31/23 01:12 Discharge Ordered Location: Home sp4 Problem: new sp4 Symptoms: have improved sp4 Condition: Stable sp4 Diagnosis - Alcohol abuse with intoxication sp4 - Alcoholic hepatitis sp4 - Fall on same level, unspecified sp4 - Heavy alcohol intoxication, acute alcoholic hepatitis, right arm contusion, left sp4 shoulder contusion, bilateral lower extremity contusion, acute fall at home, elevated WBC, Followup: sp4 - With: Petey Villalobos MD - When: 7 - 10 days - Reason: Recheck today's complaints Discharge Instructions: - Discharge Summary Sheet sp4 - Alcohol Abuse and Dependence Information, Adult sp4 Forms: - Patient Portal Instructions sp4 Prescriptions: - thiamine HCl (vitamin B1) 100 mg Oral tablet - take 1 tablet by ORAL route daily; 30 tablet; Refills: 0, Product Selection sp4 Permitted - Ibuprofen 600 mg Oral Tablet - take 1 tablet by ORAL route every 6 hours As needed take with food; 30 tablet; sp4 Refills: 0, Product Selection Permitted - Tramadol 50 mg Oral Tablet - take 1 tablet by ORAL route every 8 hours as needed; 12 tablet; Refills: 0, sp4 Product Selection Permitted Signatures: Dispatcher [employer] Kaiser Leo RN RN jb4 Airam Rick RN RN eh3 Enrique Zhu MD MD sp4 Corrections: (The following items were deleted from the chart) 01/31 00:31 00:25 LIPASE+C.LAB.BRZ ordered. [facility]
--- NOTE | 2023-01-31 01:13 | ER ---
Nurse's Notes [facility] Name: Sylvia Cruz Age: 37 yrs Sex: Female : 1985 Arrival Date: 01/30/2023 Time: 19:47 Bed 15 Private MD: Diagnosis: Alcohol abuse with intoxication;Alcoholic hepatitis;Fall on same level, unspecified;Heavy alcohol intoxication, acute alcoholic hepatitis, right arm contusion, left shoulder contusion, bilateral lower extremity contusion, acute fall at home, elevated WBC, Presentation: 01/30 19:59 Chief complaint: EMS states: toned out to home for lethargy and falls. Started new [facility] kidney medications about a month ago and pt states her mental status has been altered since then. Pt states that she had two shots of liquor this morning about 10am. Coronavirus screen:. Ebola Screen: No symptoms or risks identified at this time. Initial Sepsis Screen: Does the patient meet any 2 criteria?. Initial Sepsis Screen: Does the patient meet any 2 criteria? Altered Mental Status. HR > 90 bpm. Does the patient have a suspected source of infection? No. Patient's initial sepsis screen is negative. Risk Assessment: Do you want to hurt yourself or someone else? Patient reports no desire to harm self or others. Onset of symptoms was January 30, 2023. 19:59 Method Of Arrival: EMS: [place] [id number] 19:59 Acuity: [place] 3 3 Triage Assessment: 20:00 General: Appears uncomfortable, Behavior is cooperative, drowsy. Pain: Complains of [facility] pain in suprapubic area Pain currently is 9 out of 10 on a pain scale. Neuro: Level of Consciousness is lethargic, stuporous, Oriented to person, place, situation. Cardiovascular: Capillary refill < 3 seconds Patient's skin is warm and dry. Respiratory: Airway is patent Respiratory effort is even, unlabored, Respiratory pattern is regular, symmetrical. GI: Abdomen is round non-distended. Derm: Skin is pink, warm \T\ dry. Wound noted generalized bruising and minor abrasions. Musculoskeletal: Circulation, motion, and sensation intact. Historical: - Allergies: 20:03 No Known Allergies; eh3 - Home Meds: 20:03 Xanax 5 mg Oral daily for Anxiety with Depression, Panic Disorder [Active]; eh3 chlordiazepoxide HCl 25 mg Oral capsule 2 cap 4 times per day [Active]; sertraline oral [Active]; - PMHx: 20:03 Alcoholism; Bipolar disorder; cirrhosis of liver; Depression; Hypertension; eh3 - PSHx: 20:03 Sternum Reconstruction; eh3 - Immunization history:: Adult Immunizations unknown. - Social history:: Smoking status: unknown. Screenin:00 [facility] ED Fall Risk Assessment (Adult) Score/Fall Risk Level 3 or more points = High eh3 Risk Oriented to surroundings, Maintained a safe environment, Educated pt \T\ family on fall prevention, incl call for assistance when getting out of bed, Assessed \T\ reinforced patient's understanding of fall precautions, Provided non-skid footwear, Hourly rounding (assess needs \T\ fall precautionary measures) done, Used ambulatory aids as needed (educated on \T\ assisted with), Used gait belt as appropriate Utilized family, sitter, or virtual last picker as indicated. Abuse screen: Denies threats or abuse. Denies injuries from another. Nutritional screening: No deficits noted. Tuberculosis screening: No symptoms or risk factors identified. Assessment: 20:00 Reassessment: No changes from previously documented assessment. See triage assessment. eh3 21:00 Reassessment: Patient appears in no apparent distress at this time. Patient and/or eh3 family updated on plan of care and expected duration. Pain level reassessed. Patient is alert, oriented x 3, equal unlabored respirations, skin warm/dry/pink. 22:29 Reassessment: Patient appears in no apparent distress at this time. Patient and/or jb4 family updated on plan of care and expected duration. Pain level reassessed. Patient is alert, oriented x 3, equal unlabored respirations, skin warm/dry/pink. 23:35 Reassessment: Patient appears in no apparent distress at this time. Patient and/or jb4 family updated on plan of care and expected duration. Pain level reassessed. Patient is alert, oriented x 3, equal unlabored respirations, skin warm/dry/pink. 01/31 00:42 Reassessment: Patient appears in no apparent distress at this time. Patient and/or jb4 family updated on plan of care and expected duration. Pain level reassessed. Patient is alert, oriented x 3, equal unlabored respirations, skin warm/dry/pink. 01:44 Reassessment: Patient appears in no apparent distress at this time. Patient and/or jb4 family updated on plan of care and expected duration. Pain level reassessed. Patient is alert, oriented x 3, equal unlabored respirations, skin warm/dry/pink. Vital Signs: 01/30 19:59 BP 108 / 74; Pulse 98; Resp 20; Pulse Ox 99% on R/A; eh3 19:59 Weight 45.81 kg; Height 5 ft. 1 in. ; eh3 21:00 BP 112 / 79; Pulse 105; Resp 18; Pulse Ox 97% on R/A; eh3 22:29 BP 113 / 68; Pulse 91; Resp 16; Pulse Ox 100% on R/A; jb4 23:35 BP 117 / 88; Pulse 93; Resp 16; Pulse Ox 97% on R/A; jb4 01/31 00:42 BP 99 / 68; Pulse 93; Resp 16; Pulse Ox 97% on R/A; jb4 01/30 19:59 Body Mass Index 19.08 (45.81 kg, 154.94 cm) eh3 ED Course: 01/30 19:54 Patient arrived in ED. rv1 19:59 Airam Rick, RN is Primary Nurse. eh3 20:00 Arm band placed on. eh3 20:00 Patient has correct armband on for positive identification. Placed in gown. Bed in low eh3 position. Call light in reach. Side rails up X2. Adult w/ patient. Provided Education on: Use of call [place]. Client placed on continuous cardiac and pulse oximetry monitoring. NIBP monitoring applied. 20:03 Triage completed. eh3 20:10 Enrique Zhu MD is Attending Physician. sp4 20:29 Radiology exam delayed due to test not completed at this time. ls3 20:45 Inserted saline lock: 20 gauge in left antecubital area, using aseptic technique. Blood eh3 collected. 22:55 CT Traumagram (Head C Spine CAP wo con) In Process Unspecified. EDMS 01/31 01:10 Petey Villalobos MD is Referral Physician. sp4 01:44 No provider procedures requiring assistance completed. IV discontinued, intact, jb4 bleeding controlled, No redness/swelling at site. Pressure dressing applied. Administered Medications: 01/30 20:45 Drug: Ketorolac IVP 30 mg Route: IVP; Site: left antecubital; 3 20:45 Drug: NS 0.9% IV 1000 ml Route: IV; Rate: 125 ml/hr; Site: left antecubital; eh3 20:45 Drug: Ondansetron IVP 4 mg Route: IVP; Site: left antecubital; eh3 21:58 Drug: Thiamine IV 100 mg Route: IV; Rate: bolus; Site: left antecubital; jb4 23:16 Drug: Ibuprofen PO 400 mg Route: PO; jb4 23:16 Drug: morphine IVP or IV 2 mg Route: IVP; Infused Over: 4 mins; Site: left antecubital; jb4 Medication: 01/31 01:44 VIS not applicable for this client. jb4 Outcome: 01:12 Discharge ordered by . sp4 01:44 Discharged to home via wheelchair, with family. jb4 01:44 Condition: stable 01:44 Discharge instructions given to patient, Instructed on discharge instructions, follow up and referral plans. no drinking with medication, no driving heavy equipment, medication usage, Demonstrated understanding of instructions, follow-up care, medications, Prescriptions given X 3. 01:45 Patient left the ED. jb4 Signatures: Dispatcher [employer] EDMS Kaiser Chang RN RN jb4 Jeremiah Parr3 Airam Rick RN RN 3 Luiza Carreon1 Enrique Zhu MD MD sp4
[2023-01-31 01:54] VITALS: O2SAT 97
[2023-01-31 01:56] VITALS: BP 99/68
--- NOTE | 2023-01-31 12:47 | RAD REPORT ---
EXAM DESCRIPTION: CT - Head C Spine Cap Wo Con - 01/31/2023 6:27 am CLINICAL HISTORY: The patient is 37 years old and is Female; fall at home , head injury , intoxicati on [facility] MAIN TECHNIQUE: Axial computed tomography images of the head and cervical spine without intravenous contr ast. Axial computed tomography images of the chest, abdomen and pelvis without intravenous contrast . Sagittal and coronal reformatted images were created and reviewed. This CT exam was performed u sing one or more of the following dose reduction techniques: automated exposure control, adjustment of the mA and/or kV according to patient size, and/or use of iterative reconstruction technique. COMPARISON: 11/06/2019 CT head and C-spine without intravenous contrast, 08/25/2022 CTA chest, CT abdom en pelvis with contrast FINDINGS: NECK: BRAIN: Unremarkable. No extra-axial fluid collection. No intracranial hemorrhage. No transtentorial herniation. No focal ahn-white matter differentiation abnormality. MIDLINE SHIFT: No midline shift. OROPHARYNX: Unremarkable. No significant tonsillar enlargement. HYPOPHARYNX: Unremarkable. LARYNX: Unremarkable. Normal epiglottis. TRACHEA: Unremarkable. RETROPHARYNGEAL SPACE: Unremarkable. SUBMANDIBULAR/PAROTID GLANDS: Unremarkable. Glands are normal in size. THYROID: Unremarkable. No enlarged or calcified nodules. CHEST: LUNGS: Small focal area of groundglass opacity within the subpleural right upper lobe (axial image 28/129). Bilateral lower lobe bandlike subsegmental atelectasis. PLEURAL SPACE: Unremarkable. No significant effusion. No pneumothorax. HEART: Unremarkable. No cardiomegaly. No significant pericardial effusion. No significant cor onary artery calcifications. ABDOMEN: LIVER: Unremarkable. GALLBLADDER AND BILE DUCTS: Unremarkable. No calcified stones. No ductal dilation. PANCREAS: Unremarkable. No ductal dilation. SPLEEN: Unremarkable. No splenomegaly. ADRENALS: Unremarkable. No mass. KIDNEYS AND URETERS: Unremarkable. No obstructing stones. No hydronephrosis. STOMACH AND BOWEL: Unremarkable. No obstruction. No mucosal thickening. PELVIS: APPENDIX: No findings to suggest acute appendicitis. BLADDER: Unremarkable. No stones. REPRODUCTIVE: Hyperattenuating 2.3 cm focus in the right adnexa (axial image 100/129), suspicious f or a hemorrhagic cyst. NECK, CHEST, ABDOMEN and PELVIS: INTRAPERITONEAL SPACE: See above. BONES/JOINTS: No vertebral body height loss. Dens is intact. No fracture or subluxation. No disloca tion. Craniocervical orientation is normal. Reversal of the normal lordosis of the cervical spine as the patient is positioned. Cervical spine alignment is otherwise normal. No fracture of the calvarium or visualized facial bones. No significant spinal canal stenosis. No displaced or depressed rib fractures. SOFT TISSUES: Mild central mesenteric fat stranding, not readily appreciated on prior exam. New are a of subcutaneous stranding demonstrated overlying the posterior right iliac bone, favoring contusive injury. VASCULATURE: Unremarkable. No aortic aneurysm. LYMPH NODES: Unremarkable. No enlarged lymph nodes. IMPRESSION: 1. No acute intracranial or cervical spine abnormality. 2. Mild central mesenteric fat stranding, not readily appreciated on prior exam. Nonspecific but given history of intoxication, recommend correlation with lipase levels to evaluate for acute pancrea titis. 3. Small focal area of groundglass opacity within the subpleural right upper lobe (axial image 28/1 29). Nonspecific but favors an infectious or inflammatory process given patient age. No dedicated i maging follow-up recommended. 4. Hyperattenuating 2.3 cm focus in the right adnexa (axial image 100/129), suspicious for a hemorr hagic cyst. In the absence of symptoms, no dedicated imaging follow-up recommended. 5. PROCEDURE: CT Head and CT C-spine, CT Chest, Abdomen and Pelvis Without Intravenous Contrast CLINICAL HISTORY: The patient is 37 years old and is Female; fall at home , head injury , intoxicati on [facility] MAIN TECHNIQUE: Axial computed tomography images of the head and cervical spine without intravenous contr ast. Axial computed tomography images of the chest, abdomen and pelvis without intravenous contrast . Sagittal and coronal reformatted images were created and reviewed. This CT exam was performed u sing one or more of the following dose reduction techniques: automated exposure control, adjustment of the mA and/or kV according to patient size, and/or use of iterative reconstruction technique. COMPARISON: 11/06/2019 CT head and C-spine without intravenous contrast, 08/25/2022 CTA chest, CT abdom en pelvis with contrast FINDINGS: NECK: BRAIN: Unremarkable. No extra-axial fluid collection. No intracranial hemorrhage. No transtentorial herniation. No focal ahn-white matter differentiation abnormality. MIDLINE SHIFT: No midline shift. OROPHARYNX: Unremarkable. No significant tonsillar enlargement. HYPOPHARYNX: Unremarkable. LARYNX: Unremarkable. Normal epiglottis. TRACHEA: Unremarkable. RETROPHARYNGEAL SPACE: Unremarkable. SUBMANDIBULAR/PAROTID GLANDS: Unremarkable. Glands are normal in size. THYROID: Unremarkable. No enlarged or calcified nodules. CHEST: LUNGS: Small focal area of groundglass opacity within the subpleural right upper lobe (axial image 28/129). Bilateral lower lobe bandlike subsegmental atelectasis. PLEURAL SPACE: Unremarkable. No significant effusion. No pneumothorax. HEART: Unremarkable. No cardiomegaly. No significant pericardial effusion. No significant cor onary artery calcifications. ABDOMEN: LIVER: Hepatic steatosis. GALLBLADDER AND BILE DUCTS: Unremarkable. No calcified stones. No ductal dilation. PANCREAS: Unremarkable. No ductal dilation. SPLEEN: Unremarkable. No splenomegaly. ADRENALS: Unremarkable. No mass. KIDNEYS AND URETERS: Unremarkable. No obstructing stones. No hydronephrosis. STOMACH AND BOWEL: Unremarkable. No obstruction. No mucosal thickening. PELVIS: APPENDIX: No findings to suggest acute appendicitis. BLADDER: Unremarkable. No stones. REPRODUCTIVE: Hyperattenuating 2.3 cm focus in the right adnexa (axial image 100/129), suspicious f or a hemorrhagic cyst. NECK, CHEST, ABDOMEN and PELVIS: INTRAPERITONEAL SPACE: See above. No pneumoperitoneum or suspicious fluid collection. BONES/JOINTS: No vertebral body height loss. Dens is intact. No fracture or subluxation. No disloca tion. Craniocervical orientation is normal. Reversal of the normal lordosis of the cervical spine as the patient is positioned. Cervical spine alignment is otherwise normal. No fracture of the calvarium or visualized facial bones. No significant spinal canal stenosis. No displaced or depressed rib fractures. SOFT TISSUES: Mild central mesenteric fat stranding, not readily appreciated on prior exam. New are a of subcutaneous stranding demonstrated overlying the posterior right iliac bone. Similar smaller fo cus noted overlying the left greater trochanter.. Findings favor contusive injury. VASCULATURE: Unremarkable. No aortic aneurysm. LYMPH NODES: Unremarkable. No enlarged lymph nodes. IMPRESSION: 1. No acute intracranial or cervical spine abnormality. 2. Mild central mesenteric fat stranding, not readily appreciated on prior exam. Nonspecific but given history of intoxication, recommend correlation with lipase levels to evaluate for acute pancrea titis. 3. Small focal area of groundglass opacity within the subpleural right upper lobe (axial image 28/1 29). Nonspecific but favors an infectious or inflammatory process given patient age. No dedicated i maging follow-up recommended. 4. Hyperattenuating 2.3 cm focus in the right adnexa (axial image 100/129), suspicious for a hemorr hagic cyst. In the absence of symptoms, no dedicated imaging follow-up recommended. 5. Suspected contusive injuries overlying the left greater trochanter and posterior right iliac bon e. 6. Otherwise, allowing for lack of intravenous contrast, no acute abnormality within the chest, abd omen, or pelvis. 7. Hepatic steatosis. Electronically signed by: Sim Dyson MD 01/30/2023 11:34 PM CDT Due to temporary technical issues with the PACS/Fluency reporting system, reports are being signed by the in house radiologists without review as a courtesy to insure prompt reporting. The interpreting radiologist is fully responsible for the content of the report.
--- NOTE | 2023-01-31 17:33 | EKG ---
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
== END 2023-01-31 01:45 | disposition home or self-care (01) ==
LOC: ER 19:47
DX: F10.229 Alcohol dependence with intoxication, unspecified (principal); K70.10 Alcoholic hepatitis without ascites; D72.829 Elevated white blood cell count, unspecified; S40.021A Contusion of right upper arm, initial encounter; S40.012A Contusion of left shoulder, initial encounter; S80.12XA Contusion of left lower leg, initial encounter; S80.11XA Contusion of right lower leg, initial encounter; W18.30XA Fall on same level, unspecified, initial encounter; I10 Essential (primary) hypertension; F31.9 Bipolar disorder, unspecified
CPT/HCPCS: 93005; 85025; 81001; 80048; 36415; 81025; 85610; 80076; 85730; 83690; 80307; 70450; 71250; 72125; 80143; 80179; 82077; J3411; J2270; J2405; J7030

== ENCOUNTER 2023-02-08 23:03 | Emergency (ER) | payer OTHER ==
--- OUTSIDE RECORDS SUMMARY | 2023-02-08 23:07 | XMS REPORT | Continuity of Care Document ---
:1985 Author Organization [facility] t Address [address] [facility] [address] [place] [address] Care Team Providers Name Role Phone AWILDA THOMAS Primary Care Physician Unavailable Shannan Silvestre Attending Clinician Unavailable LUCINA DOCKERY Attending Clinician Unavailable AWILDA THOMAS Attending Clinician Unavailable NASRIN HER Attending Clinician Unavailable Anthony STRAWHAT SIZER, Nasrin Bella Attending Clinician GLENNA CAMARILLO Attending Clinician Unavailable Lucina Dockery CNM [facility]ending Clin[facility]ending [facility]ician Unavailable William Awilda MASTERSON Attending Clinician [phone] Doctor Unassigned, Page Attending Clinician Unavailable Anna Welch Attending Clinician ANNA AGUERO Attending Clinician Unavailable MENDY GOMES Attending Clinician Unavailable MARY LYMAN Attending Clinician Unavailable Mary Lyman MD Attending Clinician Brooklyn Rodriguez Attending Clinician BROOKLYN WILKES Attending Clinician Unavailable Keshia Castrejon MD Attending Clinician Lily Alvarez Attending Clinician Mendy Morgan Attending Clinician LUCINA DOCKERY Admitting Clinician Unavailable MARY LYMAN Admitting Clinician Unavailable BROOKLYN WILKES Admitting Clinician Unavailable Payers Payer Name Policy Type Policy Number Effective Date Expiration Date Huy BERGMAN [id number] 2022 HEALTHCARE 00:00:00 [place] [id number] 2021 00:00:00 Problems Condition Condition Condition Status Onset Resolution Last Treating Co mments Source Name Details Category Date Date Treatment Clinician Date Pelvic Pelvic Disease Active Univers pain pain 2-09 ity of 00:00: [address] Encounter Encounter Disease Active Uni vers for for 416 ity [place] prescript[place] Medical progestin- progestin- Br anch only only injected injected contracept contracept jacob jacob Irregular Irregular Disease Active Uni vers menses menses 8 ity of 00:00: [address] Well woman Well woman Disease Active U nivers exam exam 4-07 ity of 00:00: [address] Mollusca Mollusca Disease Active Unive rs contagiosa contagiosa 4 it y of 00:00: [address] Tobacco Tobacco Disease Active Univers use use 407 ity of disorder disorder 00:00: [address] Contracept Contracept Disease Active U nivers jacob jacob 1-07 [place] management [place] [facility] Allergies, Adverse Reactions, Alerts Allergy Allergy Status Severity Reaction(s) Onset Inactive Treating Comm ents Source Name Type Date Date Clinician NO KNOWN Drug Active Univers ALLERGIE Class ity of S [facility] Social History Social Habit Start Date Stop Date Quantity Comments Source History [facility] University o f Alcohol Frequency [facility] edical Branch History [facility] University o f Alcohol Std Drinks [facility] History [facility] o f Alcohol Binge [facility] [place] History of tobacco Cigarette Smoker University of use [facility] Alcohol intake 2022-11-30 2022-11-30 Ex-drinker University 00:00:00 00:00:00 (finding) [facility] Exposure to 2022-09-30 2022-10-10 Not sure University SARS-CoV-2 (event) 00:00:00 12:49:00 [facility] Tobacco use and 2022-10-03 2022-10-03 Smokeless Universit y of exposure 00:00:00 00:00:00 tobacco non-user [facility] dical Branch Cigarettes smoked 2022-10-03 2022-10-03 Univers ity of current (pack per 00:00:00 00:00:00 [place] ) - Reported Branch Cigarette 2022-10-03 2022-10-03 University of pack-years 00:00:00 00:00:00 [facility] Tobacco Comment 2022-03-21 2022-03-21 states only Universi ty of 00:00:00 00:00:00 smokes on [facility] occasion Branch Alcohol Comment 2012-10-03 2012-10-03 socially Universit y of 00:00:00 00:00:00 [facility] Sex Ass[birth year] At [birth year] Universit y of 00:00:00 00:00:00 [facility] Smoking Status Start Date Stop Date Source Occasional tobacco 2022-10-03 00:00:00 Universit y of [place] smoker Medical Branch Ex-smoker 2022-03-21 00:00:00 2022-03-21 [place] o f [place] 00:00:00 [facility] Medications Ordered Filled Start Stop Current Ordering Indication Dosage Frequency Signature Comments Components Source Medication Medication Date Date Medication? Clinician (SIG) Name Name ondansetron 2022- No 4mg 4 mg, Univ ers (ZOFRAN-ODT 11-30 Oral, ity of ) 15:00: 15:00 ONCE, 1 [place] disintegrat 00 :00 dose, On Medi jemima ing tablet Kriss 11/30/22 Bra nch 4 mg at 1000, Routine ondansetron 0 Yes [id number] 4mg Take 1 Univers 4 mg - tablet by ity of disintegrat 00:00: mouth [place] ing tablet 00 every 8 Medica l (eight) Branch hours as needed for Nausea and Vomiting (N/V). cephALEXin 2022-0 2022- Yes [id number] 250mg Take 1 Univers 250 mg -07 07-05 capsule by ity of capsule 00:00: 04:59 mouth [place] 00 :00 every 6 Medical (six) Branch hours for 3 days. medroxyPROG 2023- No [id number] 150mg Univers ESTERone - 03-05 ity of (DEPO-PROVE 20:45: 21:44 [place] RA) syringe 00 :00 Medical 150 mg Branch medroxyPROG 2023- No [id number] 150mg 150 mg, Univers ESTERone - 03-05 Intramuscu ity of (DEPO-PROVE 20:45: 21:44 lar, [place] RA) syringe 00 :00 [id number], Med ical 150 mg 4 doses, Branch First dose on Sun10/03/22 at 1545, Last dose on Sun06/12/23 at 1545 medroxyPROG 2022-2023- No [id number] 150mg Univers ESTERone - 03-05 ity of (DEPO-PROVE 20:45: 21:44 [place] RA) syringe 00 :00 Medical 150 mg Branch medroxyPROG 2023- No [id number] 150mg 150 mg, Univers ESTERone 10-03 03-05 Intramuscu ity of (DEPO-PROVE 20:45: 21:44 [facility], [place] RA) syringe 00 :00 [id number], Med ical 150 mg 4 doses, Branch First dose on Sun10/03/22 at 1545, Last dose on Sun06/12/23 at 1545 medroxyPROG 2022-2023- No [id number] 150mg Univers ESTERone - 03-05 ity of (DEPO-PROVE 20:45: 21:44 [place] RA) syringe 00 :00 Medical 150 mg Branch medroxyPROG 2023- No [id number] 150mg Univers ESTERone 4- 03-05 ity of (DEPO-PROVE 20:45: 21:44 [place] RA) syringe 00 :00 Medical 150 mg Branch tramadol-ac 2022- No 1{tbl} Take 1 U nivers etaminophen -10 03-04 tablet by it y of 37.5-325 mg 15:38: 00:00 [place] per tablet 16 :00 every 6 Medica l (six) Branch hours as needed for Pain. tramadol-ac 2022- No 1{tbl} Take 1 U nivers etaminophen 4-04 04-04 tablet by it y of 37.5-325 mg 15:38: 00:00 [place] per tablet 16 :00 every 6 Medica l (six) Branch hours as needed for Pain. medroxyPROG 2022- No [id number] 150mg Univers ESTERone 07-11 ity of (DEPO-PROVE 22:30: 21:42 [place] RA) syringe 00 :00 Medical 150 mg Branch medroxyPROG 2022- No [id number] 150mg 150 mg, Univers ESTERone 07-11 Intramuscu ity of (DEPO-PROVE 22:30: 21:42 lar, ONCE, [place] RA) syringe 00 :00 1 dose, On Me dical 150 mg Tue Branch 07/11/22 at 1630, Routine medroxyPROG 2021- No [id number] 150mg Univers ESTERone 03-21 ity of (DEPO-PROVE 19:45: 18:52 [place] RA) syringe 00 :00 Medical 150 mg Branch medroxyPROG 2021- No [id number] 150mg 150 mg, Univers ESTERone 03-21 Intramuscu ity of (DEPO-PROVE 19:45: 18:52 lar, ONCE, [place] RA) syringe 00 :00 1 dose, On Me dical 150 mg Tue Branch 03/21/22 at 1445, Routine medroxyPROG 2020-07- No [id number] 150mg Univers ESTERone 06-02 ity of (DEPO-PROVE 20:15: 20:14 [place] RA) 00 :00 Medical injection Branch 150 mg medroxyPROG 2020-07- No [id number] 150mg 150 mg, Univers ESTERone 06-02 Intramuscu ity of (DEPO-PROVE 20:15: 20:14 lar, [place] RA) 00 :00 [id number], Medical injection 4 doses, Branch 150 mg First dose on Sun07/01/21 at 1415, Last dose on Sun03/10/22 at 1415, Routine medroxyPROG 2020-07- No [id number] 150mg Univers ESTERone 06-02 ity of (DEPO-PROVE 20:15: 20:14 [place] RA) 00 :00 Medical injection Branch 150 mg medroxyPROG 2020-07- No [id number] 150mg Univers ESTERone 06-02 ity of (DEPO-PROVE 20:15: 20:14 [place] RA) 00 :00 Medical injection Branch 150 mg medroxyPROG 2020-07- No [id number] 150mg 150 mg, Univers ESTERone 06-02 Intramuscu ity of (DEPO-PROVE 20:15: 20:14 lar, [place] RA) 00 :00 [id number], Medical injection 4 doses, Branch 150 mg First dose on Sun07/01/21 at 1415, Last dose on Sun03/10/22 at 1415, Routine medroxyPROG 2020-07- No [id number] 150mg Univers ESTERone 06-02 ity of (DEPO-PROVE 20:15: 20:14 [place] RA) 00 :00 Medical injection Branch 150 mg medroxyPROG 2020-07- No [id number] 150mg 150 mg, Univers ESTERone 06-02 Intramuscu ity of (DEPO-PROVE 20:15: 20:14 [facility], [place] RA) 00 :00 [id number], Medical injection 4 doses, Branch 150 mg First dose on Sun07/01/21 at 1415, Last dose on Sun03/10/22 at 1415, Routine medroxyPROG 2020-07- No [id number] 150mg Univers ESTERone 06-02 ity of (DEPO-PROVE 20:15: 20:14 [place] RA) 00 :00 Medical injection Branch 150 mg cephALEXin 2020-07 Yes [id number] 500mg Take 1 Univers (KEFLEX) 2-29 capsule by ity o f 500 mg 00:00: mouth 3 [place] capsule 00 (three) Medical times Branch daily. cephALEXin 2020-07 Yes [id number] 500mg Take 1 Univers (KEFLEX) 2-29 capsule by ity o f 500 mg 00:00: mouth 3 [place] capsule 00 (three) Medical times Branch daily. cephALEXin 2020-07 Yes [id number] 500mg Take 1 Univers (KEFLEX) 2-29 capsule by ity o f 500 mg 00:00: mouth 3 [place] capsule 00 (three) Medical times Branch daily. cephALEXin 2020-07 Yes [id number] 500mg Take 1 Univers (KEFLEX) 2-29 capsule by ity o f 500 mg 00:00: mouth 3 [place] capsule 00 (three) Medical times Branch daily. cephALEXin 2020-07 Yes [id number] 500mg Take 1 Univers (KEFLEX) 2-29 capsule by ity o f 500 mg 00:00: mouth 3 [place] capsule 00 (three) Medical times Branch daily. cephALEXin 2020-07 Yes [id number] 500mg Take 1 Univers (KEFLEX) 2-29 capsule by ity o f 500 mg 00:00: mouth 3 [place] capsule 00 (three) Medical times Branch daily. cephALEXin 2020-07 Yes [id number] 500mg Take 1 Univers (KEFLEX) 2-29 capsule by ity o f 500 mg 00:00: mouth 3 [place] capsule 00 (three) Medical times Branch daily. cephALEXin 2020-07 Yes [id number] 500mg Take 1 Univers (KEFLEX) 2-29 capsule by ity o f 500 mg 00:00: mouth 3 [place] capsule 00 (three) Medical times Branch daily. cephALEXin 2020-07- No [id number] 500mg Take 1 Univers (KEFLEX) 2-29 04-04 capsule by ity of 500 mg 00:00: 00:00 mouth 3 [place] capsule 00 :00 (three) Medical times Branch daily. cephALEXin 2020-07- No [id number] 500mg Take 1 Univers (KEFLEX) 2-29 04-04 capsule by ity of 500 mg 00:00: 00:00 mouth 3 [place] capsule 00 :00 (three) Medical times Branch daily. naproxen Yes [id number] 250mg Take 1 Un evaristo 250 mg 2-09 tablet by ity of tablet 00:00: mouth [place] 00 every 8 Medical (eight) Branch hours as needed for Pain (scale 4-6). Take 500mg followed by 250mg every 6-8 hours naproxen Yes [id number] 250mg Take 1 Un evaristo 250 mg 2-09 tablet by ity of tablet 00:00: mouth [place] every 8 Medical (eight) Branch hours as needed for Pain (scale 4-6). Take 500mg followed by 250mg every 6-8 hours naproxen 202-0 Yes [id number] 250mg Take 1 Un evaristo 250 mg 2-09 tablet by ity of tablet 00:00: mouth [place] 00 every 8 Medical (eight) Branch hours as needed for Pain (scale 4-6). Take 500mg followed by 250mg every 6-8 hours naproxen 2021-0 Yes [id number] 250mg Take 1 Un evaristo 250 mg 2-09 tablet by ity of tablet 00:00: mouth [place] 00 every 8 Medical (eight) Branch hours as needed for Pain (scale 4-6). Take 500mg followed by 250mg every 6-8 hours naproxen 2020-0 Yes [id number] 250mg Take 1 Un evaristo 250 mg 2-09 tablet by ity of tablet 00:00: mouth [place] 00 every 8 Medical (eight) Branch hours as needed for Pain (scale 4-6). Take 500mg followed by 250mg every 6-8 hours naproxen 2020-0 Yes [id number] 250mg Take 1 Un evaristo 250 mg 2-09 tablet by ity of tablet 00:00: mouth [place] 00 every 8 Medical (eight) Branch hours as needed for Pain (scale 4-6). Take 500mg followed by 250mg every 6-8 hours naproxen 2020-0 Yes [id number] 250mg Take 1 Un evaristo 250 mg 2-09 tablet by ity of tablet 00:00: mouth [place] 00 every 8 Medical (eight) Branch hours as needed for Pain (scale 4-6). Take 500mg followed by 250mg every 6-8 hours naproxen 2020-0 Yes [id number] 250mg Take 1 Un evaristo 250 mg 2-09 tablet by ity of tablet 00:00: mouth [place] 00 every 8 Medical (eight) Branch hours as needed for Pain (scale 4-6). Take 500mg followed by 250mg every 6-8 hours naproxen 202-0 2023- No [id number] 250mg Take 1 U nivers 250 mg 2-09 04-04 tablet by ity of tablet 00:00: 00:00 mouth [place] 00 :00 every 8 Medical (eight) Branch hours as needed for Pain (scale 4-6). Take 500mg followed by 250mg every 6-8 hours naproxen 202-0 2023- No [id number] 250mg Take 1 U nivers 250 mg 08-10-04 tablet by ity of tablet 00:00: 00:00 mouth [place] 00 :00 every 8 Medical (eight) Branch hours as [...] Immunizations Ordered Filled Immunization Date Status Comments [facility] e Immunization Name Name [facility] 2022-03-21 Completed University of 00:00:[place] [id number] 2022-03-21 Completed University of 00:00:00 [place] [id number] 2022-03-21 Completed University of 00:00:00 [place] [id number] 2022-03-21 Completed University of 00:00:00 [place] [address] 2022-03-21 Completed University of 00:00:00 [place] [address] 2022-03-21 Completed University of 00:00:00 [place] [address] 2022-03-21 Completed University of 00:00:00 [place] [address] 2022-03-21 Completed University of 00:00:00 [place] [address] 2021-08-31 Completed University of 00:00:00 [place] [address] 2021-08-31 Completed University of 00:00:00 [facility] 2021-08-31 Completed University of 00:00:00 [place] [id number] 2021-08-31 Completed University of 00:00:00 [facility] 2021-08-31 Completed University of 00:00:00 [place] [address] 2021-08-31 Completed University of 00:00:00 [place] [address] 2021-08-31 Completed University of 00:00:00 [place] [address] 2021-08-31 Completed University of 00:00:00 [facility] 2021-08-31 Completed University of 00:00:00 [facility] 2021-08-31 Completed University of 00:00:00 [facility] 2021-08-31 Completed University of 00:00:00 [place] [id number] 2021-07-01 Completed University of 00:00:00 [place] [address] 2021-07-01 Completed University of 00:00:00 [facility] 2021-07-01 Completed University of 00:00:00 [place] [address] 2021-07-01 Completed University of 00:00:00 [facility] 2021-07-01 Completed University of 00:00:00 [facility] HPV9 2021-07-01 Completed University of 00:00:00 [facility] HPV9 2021-07-01 Completed University of 00:00:00 [facility] HPV9 2021-07-01 Completed University of 00:00:00 [facility] HPV9 2021-07-01 Completed University of 00:00:00 [facility] HPV9 2021-07-01 Completed University of 00:00:00 [facility] HPV9 2021-07-01 Completed University of 00:00:00 [facility] HPV9 2021-07-01 Completed University of 00:00:00 [facility] SARS-COV-2 COVID-19 2021-05-09 Completed Unive rsity of PFIZER VACCINE 00:00:00 [facility] SARS-COV-2 COVID-19 2021-05-09 Completed Unive rsity of PFIZER VACCINE 00:00:00 [facility] SARS-COV-2 COVID-19 2021-05-09 Completed Unive rsity of PFIZER VACCINE 00:00:00 [facility] SARS-COV-2 COVID-19 2021-05-09 Completed Unive rsity of PFIZER VACCINE 00:00:00 [facility] Influenza Virus 2020-05-06 Completed Universit y of Vaccine Quad .5 mL 00:00:00 [facility] MO Branch Influenza Virus 2020-05-06 Completed Universit y of Vaccine [place] .5 mL 00:00:00 [facility] IM 6+ MO Branch Influenza Virus 2020-05-06 Completed Universit y of Vaccine Quad .5 mL 00:00:00 [place] [facility] IM 6+ MO Branch Influenza Virus 2020-05-06 Completed Universit y of Vaccine [place] .5 mL 00:00:00 [place] [facility] IM 6+ MO Branch Influenza Virus 2020-05-06 Completed Universit y of Vaccine Quad .5 mL 00:00:00 [place] [facility] IM 6+ MO Branch Influenza Virus 2020-05-06 Completed Universit y of Vaccine Quad .5 mL 00:00:00 [place] [facility] IM 6+ MO Branch Influenza Virus 2020-05-06 Completed Universit y of Vaccine [place] .5 mL 00:00:00 [place] [facility] IM 6+ MO Branch Influenza Virus 2020-05-06 Completed Universit y of Vaccine Quad .5 mL 00:00:00 [place] [facility] IM 6+ MO Branch Influenza Virus 2020-05-06 Completed Universit y of Vaccine [place] .5 mL 00:00:00 [facility] IM 6+ MO Branch Influenza Virus 2020-05-06 Completed Universit y of Vaccine Quad .5 mL 00:00:00 [facility] IM 6+ MO Branch Influenza Virus 2020-05-06 Completed Universit y of Vaccine Quad .5 mL 00:00:00 [facility] IM 6+ MO Branch Influenza Virus 2020-05-06 Completed Universit y of Vaccine Quad .5 mL 00:00:00 [facility] IM 6+ MO Branch TDAP 2011-10-31 Completed University of 00:00:00 [facility] TDAP 2011-10-31 Completed University of 00:00:00 [facility] TDAP 2011-10-31 Completed University of 00:00:00 [facility] TDAP 2011-10-31 Completed University of 00:00:00 [facility] TDAP 2011-10-31 Completed University of 00:00:00 [facility] TDAP 2011-10-31 Completed University of 00:00:00 [facility] TDAP 2011-10-31 Completed University of 00:00:00 [facility] TDAP 2011-10-31 Completed University of 00:00:00 [facility] TDAP 2011-10-31 Completed University of 00:00:00 [facility] TDAP 2011-10-31 Completed University of 00:00:00 [facility] TDAP 2011-10-31 Completed University of 00:00:00 [facility] TDAP 2011-10-31 Completed University of 00:00:00 [facility] Vital Signs Vital Name Observation Time Observation Value Comments Source Systolic blood 2022-11-30 13:21:00 142 mm[Hg] Univer sity of pressure [facility] Diastolic blood 2022-11-30 13:21:00 87 mm[Hg] Unive rsity of pressure [facility] Heart rate 2022-11-30 13:21:00 97 /min [facility] Body temperature 2022-11-30 13:21:00 37.22 [facility]ushma [facility] 2022-11-30 13:21:00 18 /min [facility] Body height 2022-11-30 13:21:00 157.5 cm [facility] Body weight 2022-11-30 13:21:00 51.256 kg Universi ty of [place] [facility] BMI 2022-11-30 13:21:00 20.67 kg/m2 Universi ty [facility] [place] [facility] Oxygen saturation in 2022-11-30 13:21:00 99 /min University of Arterial blood by [facility] [place] [facility] Pulse oximetry Branch Systolic blood 2022-10-03 20:28:00 137 mm[Hg] Univer sity of pressure [place] [facility] Diastolic blood 2022-10-03 20:28:00 82 mm[Hg] Unive rsity of pressure [place] [facility] Heart rate 2022-10-03 20:28:00 76 /min Universi ty of [facility] Body temperature 2022-10-03 20:28:00 36.28 Sushma Univ ersity of [facility] Branch Respiratory rate 2022-10-03 20:28:00 20 /min Univ ersity of [place] [facility] Body height 2022-10-03 20:28:00 154.9 cm Universi ty of [place] [facility] [place] Body weight 2022-10-03 20:28:00 54.205 kg [facility]i ty [facility] [place] [facility] BMI 2022-10-03 20:28:00 22.58 kg/m2 [facility] [place] [facility] Systolic blood 2022-07-11 20:09:00 138 mm[Hg] Univer sity of pressure [place] [facility] Diastolic blood 2022-07-11 20:09:00 88 mm[Hg] Unive rsity of pressure [place] [facility] Heart rate 2022-07-11 20:09:00 94 /min Universi ty of [place] [facility] [place] Body temperature 2022-07-11 20:09:00 36.33 Sushma Univ ersity of [place] [facility] Respiratory rate 2022-07-11 20:09:00 18 /min Univ ersity of [place] [facility] Body weight 2022-07-11 20:09:00 56.79 kg Universi ty of [place] [facility] BMI 2022-07-11 20:09:00 23.66 kg/m2 Universi ty [facility] [place] [facility] Systolic blood 2022-03-21 18:47:00 118 mm[Hg] manual Univer sity of pressure [place] [facility] Diastolic blood 2022-03-21 18:47:00 86 mm[Hg] manual Unive rsity of pressure [place] [facility] Heart rate 2022-03-21 18:45:00 77 /min Universi ty [facility] [place] [facility] Body temperature 2022-03-21 18:45:00 36.11 Sushma Univ ersity of [place] [facility] Respiratory rate 2022-03-21 18:45:00 18 /min Univ ersity of [place] [facility] Body height 2022-03-21 18:45:00 154.9 cm [facility]i ty [facility] [place] [facility] Body weight 2022-03-21 18:45:00 59.149 kg Universi ty [facility] [place] [facility] BMI 2022-03-21 18:45:00 24.64 kg/m2 [facility] [place] [facility] Systolic blood 2021-12-27 18:42:00 134 mm[Hg] Univer sity of pressure [place] [facility] Diastolic blood 2021-12-27 18:42:00 86 mm[Hg] Unive rsity of pressure [place] [facility] Heart rate 2021-12-27 18:42:00 84 /min [facility]i ty [facility] [place] [facility] Body temperature 2021-12-27 18:42:00 36.33 Sushma Univ ersity of [place] [facility] Respiratory rate 2021-12-27 18:42:00 18 /min Univ ersity of [place] [facility] Body weight 2021-12-27 18:42:00 59.92 kg Universi ty [facility] [place] [facility] BMI 2021-12-27 18:42:00 24.96 kg/m2 [facility] [place] [facility] Systolic blood 2021-10-04 18:44:00 128 mm[Hg] Univer sity of pressure [place] [facility] Diastolic blood 2021-10-04 18:44:00 87 mm[Hg] Unive rsity of pressure [place] [facility] Heart rate 2021-10-04 18:44:00 72 /min [facility]i ty [facility] [place] [facility] Body temperature 2021-10-04 18:44:00 35.83 Sushma Univ ersity of [place] [facility] Respiratory rate 2021-10-04 18:44:00 18 /min Univ ersity of [place] [facility] Body height 2021-10-04 18:44:00 154.9 cm Universi ty [facility] [place] [facility] Body weight 2021-10-04 18:44:00 60.442 kg Universi ty [facility] [place] [facility] BMI 2021-10-04 18:44:00 25.18 kg/m2 [facility] [place] [facility] Systolic blood 2021-08-31 18:58:00 111 mm[Hg] Univer sity of pressure [place] [facility] Diastolic blood 2021-08-31 18:58:00 71 mm[Hg] Unive rsity of pressure [place] [facility] Heart rate 2021-08-31 18:58:00 82 /min Universi ty of [facility] Body temperature 2021-08-31 18:58:00 36.17 Sushma Univ ersity of [facility] Branch Respiratory rate 2021-08-31 18:58:00 16 /min Univ ersity of [facility] Branch Body height 2021-08-31 18:58:00 154.9 cm Universi ty [facility] [place] [facility] Body weight 2021-08-31 18:58:00 61.236 kg [facility]i ty [facility] [place] [facility] BMI 2021-08-31 18:58:00 25.51 kg/m2 Universi ty of [facility] Systolic blood 2021-07-01 19:55:00 129 mm[Hg] Univer sity of pressure [facility] Branch Diastolic blood 2021-07-01 19:55:00 92 mm[Hg] Unive rsity of pressure [place] [facility] [place] Heart rate 2021-07-01 19:34:00 82 /min [facility]i ty [facility] [place] [facility] Body temperature 2021-07-01 19:34:00 36.17 Sushma Univ ersity of [place] [facility] [place] Respiratory rate 2021-07-01 19:34:00 18 /min Univ ersity of [facility] Body height 2021-07-01 19:34:00 154.9 cm Universi ty [facility] [place] [facility] [place] Body weight 2021-07-01 19:34:00 60.963 kg [facility] [place] [facility] BMI 2021-07-01 19:34:00 25.39 kg/m2 [facility] [place] [facility] Procedures Procedure Date / Time Performing Clinician Source Performed ASSIGNMENT OF BENEFITS 2022-11-30 13:58:12 Doctor Unassigned, No [facility] RAPID STREP SCREEN FOR 2022-11-30 13:51:00 Nasrin Her [facility] Emergency POCT TEST 2022-11-30 13:40:00 Nasrin Her [facility] URINALYSIS 2022-11-30 13:38:00 Nasrin Her [facility] RAPID INFLUENZA A/B 2022-11-30 13:38:00 Nasrin Her Univers [facility] COVID-19 (ID NOW RAPID 2022-11-30 13:38:00 Nasrin Her [facility] TESTING) [facility] CONSENT/REFUSAL FOR 2022-11-30 13:11:51 Doctor Unassigned, No [facility] [place] [facility] Name [facility] US PELVIS COMPLETE WITH 2022-10-17 14:25:42 Lucina Dockery [facility] TRANSVAGINAL [facility] POCT TEST 2022-07-11 20:10:00 Awilda Thomas Uni versity of [facility] ASSIGNMENT OF BENEFITS 2022-07-11 19:44:20 Doctor Unassigned, No [facility] CONSENT/REFUSAL FOR 2022-07-11 19:44:01 Doctor Unassigned, No [facility] [place] [facility] Name [facility] GARDASIL 9 (HPV 9V) 2022-03-21 18:30:38 Awilda Thomas Uni versity of [facility] POCT TEST 2021-10-04 18:51:00 Awilda Thomas Uni versity of [facility] GARDASIL 9 (HPV 9V) 2021-08-31 19:03:43 Anna Aguero [facility] GARDASIL 9 (HPV 9V) 2021-07-01 20:10:59 Awilda Thomas Uni versity of [facility] Encounters Start End Encounter Admission Attending Care Care Encounter Source Date/Time Date/Time Type Type Clinicians Facility Department ID 2023-01-09 [facility] [id number] Common 15:00:00 Shannan [id number] [facility] 2021-05-01 Emergency X [facility] ERT [id number] Univers 16:51:42 ity [facility] 2021-05-01 Emergency [facility] [id number] Univers 16:50:47 ity of [facility] 2023-02-122023-02-12 Outpatient R [facility] [id number] Univers 14:00:00 14:00:00 ity [facility] 2023-01-03 2023-01-03 Outpatient SFA SFA [id number] Heri 10:40:08 10:40:08 0705 F Armstrong 2022-12-26 2022-12-26 Outpatient R AKINSIPE, [facility] [id number] Univers 13:30:00 13:30:00 AWILDA ity o f [facility] 2022-12-01 2022-12-01 Outpatient SFA SFA [id number] Heri 14:18:41 14:18:41 0602 F Armstrong 2022-11-30 2022-11-30 Emergency X [facility] ERT [id number] Univers 08:25:00 10:30:00 NASRIN [facility] 2022-11-30 2022-11-30 [facility] [id number] Univers 08:25:00 10:30:00 Nasrin HUMPHREYS 350.1.13.10 [facility] 4.2.7.2.686 [facility] [id number] [address] 2022-11-16 2022-11-16 Outpatient SFA SFA [id number] Heri 11:35:18 11:35:18 0518 F Armstrong 2022-11-14 2022-11-14 Outpatient SFA SFA [id number] Heri 11:01:17 11:01:17 0516 F Armstrong 2022-11-13 2022-11-13 Outpatient JIE CAMARILLO [id number] Jie 13:30:00 13:30:00 GLENNA earl 2022-11-13 2022-11-13 Outpatient SFA SFA [id number] Heri 12:15:58 12:15:58 0515 F Armstrong 2022-10-17 2022-10-17 [facility] [id number] Univers 08:44:41 23:59:00 LUCINA [facility] 2022-10-17 2022-10-17 [facility] 1.2.840.114 [id number] Univers 08:44:41 23:59:00 Encounter Lucina Osorio [facility] 350.1.13.10 ity of [place] 4.2.7.2.686 [place] [id number] [facility] [address] ([facility]) 2022-10-03 2022-10-03 [facility] [id number] Univers 15:15:00 16:04:45 LUCINA ity [facility] 2022-10-03 2022-10-03 [facility] 1.2.840.114 [id number] Univers 15:15:00 16:04:45 Visit Lucina A [facility] 350.1.13.10 i ty of [facility] 4.2.7.2.686 [place] as MATERNAL [id number] [facility] ical & CHILD [address] [place] [address] 2022-10-03 2022-10-03 [facility] [id number] Univers 13:00:00 13:00:00 AWILDA ward [facility] 2022-07-28 2022-07-28 Outpatient R WILLIAM, [facility] [id number] Univers 08:15:00 08:15:00 AWILDA ward [facility] 2022-07-11 2022-07-11 Outpatient R WILLIAM, [facility] [id number] Univers 13:30:00 14:07:31 AWILDA ward [facility] 2022-07-11 2022-07-11 Nurse Visit, JarochoRmchp Nurse RUST 1.2 .840.114 [id number] Univers 13:30:00 14:07:31 Visit Awilda Thomas [facility] 350.1.13. 10 ity of [facility] 4.2.7.2.686 [place] as MATERNAL [id number] [facility] ical & CHILD [address] [place] [address] 2022-07-11 2022-07-11 Orders Doctor NAIK 1.2.840.114 [id number] Univers 00:00:00 00:00:00 Only Unassigned, BERKLEY 350.1.13.10 ity of [place] [facility] 4.2.7.2.686 [place] as [id number] [address] 2022-07-10 2022-07-10 Telephone William RUST 1.2.840.114 [id number] Univers 00:00:00 00:00:00 Awilda Mendez [facility] 350.1.13.10 ity of [facility] 4.2.7.2.686 [place] as MATERNAL [id number] [facility] & CHILD [address] [place] [address] 2022-07-03 2022-07-03 [facility] [id number] Univers 13:30:00 13:30:00 AWILDA ward [facility] 2022-03-21 2022-03-21 Nurse Visit, Cammie Nurse RUST 1.2 .840.114 [id number] Univers 13:30:00 13:45:25 Visit Anna Aguero [facility] 350.1.13.10 ity of [place] [id number] [place] as MATERNAL [id number] [address] 2022-03-21 2022-03-21 Outpatient Anne AGUERO [facility] [id number] Univers 13:30:00 13:30:00 ANNA ward [facility] 2021-12-30 2021-12-30 Outpatient R [facility] [id number] Univers 13:00:00 13:00:00 ity of [facility] 2021-12-27 2021-12-27 Nurse Visit, Cammie Nurse RUST 1.2 .840.114 [id number] Univers 13:30:00 13:47:23 Visit Anna Aguero [facility] 350.1.13.10 ity of [facility] 4..7.2.686 [place] as MATERNAL [id number] [address] 2021-12-27 2021-12-27 [facility]patient [facility] [id number] Univers 13:30:00 13:30:00 ANNA ward [facility] 2021-11-30 2021-11-30 Outpatient R WILLIAM [facility] [id number] Univers 14:30:00 14:30:00 AWILDA adrian o dave [facility] 2021-10-04 2021-10-04 Nurse Visit, Matildep Nurse RUST 1.2 .840.114 [id number] Univers 13:30:00 13:57:52 Visit Anna Aguero R [facility] 350.1.13.10 ity [facility] 4.2.7.2.686 [place] as MATERNAL [id number] [facility] & [address] 2021-10-04 2021-10-04 [facility] [id number] Univers 13:30:00 13:30:00 ANNA adrian o [facility] 2021-09-23 2021-09-23 Outpatient R [facility] [id number] Univers 13:00:00 13:00:00 ity [facility] 2021-09-23 2021-09-23 [facility] [id number] Univers 13:00:00 13:00:00 ANNA adrian o [facility] 2021-08-31 2021-08-31 Outpatient R [facility] [id number] Univers 13:30:00 13:30:00 ity [facility] 2021-08-31 2021-08-31 Out[facility] [id number] Univers 13:30:00 13:30:00 ANNA adrian o dave [facility] 2021-08-31 2021-08-31 Nurse Visit, Cammie Nurse RUST 1.2 .840.114 [id number] Univers 13:30:00 13:30:00 Visit Anna Aguero Anne [facility] 350.1.13.10 ity of [facility] 4.2.7.2.686 [place] as MATERNAL [id number] [facility] & [address] 2021-07-01 2021-07-01 Outpatient [facility] [id number] Univers 13:15:00 14:10:58 AWILDA adrian o [facility] 2021-07-01 2021-07-01 Office [facility] [id number] Univers 13:15:00 14:10:58 Visit Awilda Mendez [facility] 350.1.13.10 ity [facility] 4.2.7.2.686 [place] as MATERNAL [id number] Med ical & CHILD [address] [place] [address] 2021-07-01 2021-07-01 Outpatient R WILLIAM [facility] [id number] Univers 09:00:00 09:00:00 AWILDAROSE ward dave [facility] 2021-07-01 2021-07-01 Outpatient R WILLIAM [facility] [id number] Univers 09:00:00 09:00:00 AWILDA acosta [facility] 2021-06-29 2021-06-29 Outpatient Anne GOMES [facility] [id number] Univers 13:00:00 13:00:00 MENDY adrian [facility] 2021-06-29 2021-06-29 [facility]patient [facility] [id number] Univers 13:00:00 13:00:00 MENDY timo [facility] 2021-06-28 2021-06-29 Emergency [facility] [id number] Univers 23:27:00 04:47:00 MARY [facility] 2021-06-28 2021-06-29 Emergency [facility] [id number] [id number] Univers 23:27:00 04:47:00 [facility] 350.1.13.10 i ty [facility] 4.2.7.2.686 [facility] [id number] [address] 2021-06-28 2021-06-29 Emergency [facility] ERT [id number] Univers 23:27:00 04:47:00 MARY timo [facility] 2021-05-10 2021-05-10 Outpatient Anne [facility] [id number] Univers 13:30:00 13:30:00 MENDY [facility] 2021-04-15 2021-04-15 Emergency Chung RUST 1.2.840.114 [id number] Univers 19:01:00 23:04:00 [place] 350.1.13.10 i ty [facility] 4.2.7.2.686 [facility] [id number] [address] 2021-04-15 2021-04-15 Emergency X CHUNG, RUST ERT [id number] Univers 19:01:00 23:04:00 BROOK[place]N [facility] 2021-04-06 2021-04-06 [facility] [place]UST 1.2 .840.114 [id number] Univers 13:20:16 13:45:56 Visit Anna Aguero [facility] 350.1.13.10 ity [facility] 4.2.7.2.686 [place] as MATERNAL [id number] [facility] ical & CHILD [address] [place] [address] 2021-04-06 2021-04-06 Outpatient R LACI [facility] [id number] Univers 13:30:00 13:30:00 ANNA ward [facility] 2021-01-13 2021-01-13 Outpatient R [facility] [id number] Univers 13:30:00 13:30:00 [facility] 2021-01-12 2021-01-12 [facility] Nurse RUST 1.2 .840.114 [id number] Univers 12:58:10 13:14:44 Visit Awilda Thomas [facility] 350.1.13. 10 [facility] 4.2.7.2.686 [place] MATERNAL [id number] [facility] & [address] 2021-01-12 2021-01-12 Outpatient R [facility] [id number] Univers 13:00:00 13:00:00 [facility] 2021-01-12 2021-01-12 Outpatient [facility] [id number] Univers 13:00:00 13:00:00 AWILDA acosta [facility] 2020-11-01 2020-11-01 Emergency [facility] 1.2.840.114 [id number] 22:05:00 22:06:00 , [facility] 350.1.13.10 4.2.7.2.686 [id number] 2020-11-01 2020-11-01 Emergency Schoenstein TRAUMA 1.2.840.114 [id number] Univers 22:05:00 22:06:00 , [place] CENTER 350.1.13.10 it [place] [id number] [facility] [address] 2020-11-01 2020-11-01 Emergency Shahid, K RUST 1.2.840.114 [id number] 17:05:00 20:46:00 Ayana [place] 350.1.13.10 [place] 4.2.7.2.686 [place] [id number] 2020-11-01 2020-11-01 Emergency [facility] 1.2.840.114 [id number] Univers 17:05:00 20:46:00 Ayana [place] 350.1.13.10 i ty of [place].2.[place] [id number] [facility] [address] 2020-11-01 2020-11-01 Office [facility] 1.2.840.114 [id number] 13:58:16 14:28:58 Visit Anna R [facility] 350.1.13.10 REGIONAL 4.2.7.2.686 MATERNAL [id number] & CHILD [address] [place] [address] 2020-11-01 2020-11-01 Office [facility] 1.2.840.114 [id number] Univers 13:58:16 14:28:58 Visit Silviaa R [facility]SING ASSOC 350.1.13.10 ity of [facility] 4.2.7.2.686 [place] as MATERNAL [id number] Med ical & CHILD [address] [place] [address] 2020-11-01 2020-11-01 Outpatient R LACI [facility] [id number] Univers 14:00:00 14:00:00 CONRADNDA ity o f [facility] 2020-10-21 2020-10-21 Nurse Visit, Cammie Nurse RUST 1.2 .840.114 [id number] Univers 14:54:52 15:08:41 Visit Dianne Agueromikey Rodríguez [facility] 350.1.13.10 ity of [facility] 4.2.7.2.686 [place] as MATERNAL [id number] [facility] [address] [place] [address] 2020-10-21 2020-10-21 Outpatient R [facility] [id number] Univers 14:30:00 14:30:00 ity [facility] 2020-08-13 2020-08-13 Telephone [facility] 1.2.840.114 [id number] Univers 00:00:00 00:00:00 Awilda Mendez [facility] 350.1.13.10 ity of [facility] 4.2.7.2.686 [place] as MATERNAL [id number] [facility] & CHILD [address] [place] [address] 2020-08-10 2020-08-10 Outpatient R WILLIAM [facility] [id number] Univers 13:45:00 13:45:00 AWILDA adrian o f [facility] 2020-07-29 2020-07-29 Nurse Visit, Cammie Nurse RUST 1.2 .840.114 [id number] Univers 14:20:34 14:34:34 Visit AgueroAnna [facility] 350.1.13.10 ity of [facility] 4.2.7.2.686 [place] as MATERNAL [id number] [facility] & CHILD [address] [place] [address] 2020-07-29 2020-07-29 Outpatient R [facility] [id number] Univers 14:30:00 14:30:00 ity [facility] 2020-05-06 2020-05-06 Office Eliseo R[place] 1.2.218.160 [id number] Univers 15:32:18 16:10:31 Visit Mendy Jesus [facility] 350.1.13.10 it y of REG[place]AL 4.2.7.2.686 [place] as MATERNAL [id number] [facility] & CHILD [address] [place] [address] 2020-05-06 2020-05-06 [facility] [id number] Univers 15:30:00 15:30:00 MENDY adrian [facility] 2020-05-06 2020-05-06 Orders Doctor HEENA 1.2.840.114 [id number] Univers 00:00:00 00:00:00 Only Unassigned, BERKLEY 350.1.13.10 [facility] 4.2.7.2.686 [place] as [id number] [address] 2020-02-11 2020-02-11 Outpatient R [facility] [id number] Univers 13:30:00 13:30:00 ity [facility] 2019-11-19 2019-11-19 [facility] [place]UST 1.2 .840.114 [id number] Univers 13:54:25 14:01:32 Visit Anna Aguero [facility]SING [facility] 350.1.13.10 ity [facility] 4..7.2.686 [place] as MATERNAL [id number] Med ical & CHILD 107 [facility] 2019-11-19 2019-11-19 Outpatient R [facility] [id number] Univers 13:30:00 13:30:00 ity [facility] 2019-08-27 2019-08-27 Nurse Visit, Cammie Nurse RUST 1.2 .840.114 [id number] Univers 13:46:00 14:04:52 Visit Anna Aguero [facility] 350.1.13.10 ity [facility] 4.2.7.2.686 [place] as MATERNAL [id number] Med ical & CHILD [address] [place] [address] 2019-08-27 2019-08-27 Outpatient [facility] [id number] Univers 13:30:00 13:30:00 ANNA acosta [facility] 2019-03-11 2019-03-11 Office [facility] [id number] [id number] Univers 14:03:33 14:50:27 Visit Mendy Jesus [facility]SING ASSOC 350.1.13.10 it y of [facility] 4.2.7.2.686 [place] as MATERNAL [id number] Med ical & CHILD [address] [facility] 2019-03-11 2019-03-11 Orders Doctor HEENA 1.2.840.114 [id number] Univers 00:00:00 00:00:00 Only Unassigned, BERKLEY 350.1.13.10 ity of [place] [facility] 4.2.7.2.686 [place] as [id number] [address] Results Test Description Test Time Test Comments Results Result Comments Source POCT TEST 2022-11-30 13:40:00 Test Item Value Reference Range Interpretation Comme nts POCT PREG (test code = 1605) Negative On board controls acceptable with C Line (test code = 3574) Yes POCT PREG LOT # (test code = 3575) [id number] POCT PREG TEST DATE (test code = 3576) 04/05/2024 Lab Interpretation (test code = 04903-5) [id number] 20:10:00 Test Item Value Reference Range Interpretation Comments POCT PREG (test code = 1605) Negative On board controls acceptable with C Yes Line (test code = 3574) POCT PREG LOT # (test code = 3575) POCT PREG TEST DATE (test code = 3576) [facility] [id number] 18:51:00 Test Item Value Reference Range Interpretation Comments POCT PREG (test code = 1605) Negative On board controls acceptable with C Yes Line (test code = 3574) POCT PREG LOT # (test code = 3575) POCT PREG TEST DATE (test code = 3576) [facility] [id number] 04:03:56 Test Item Value Reference Range Interpretation Comments GLUCOSE (test code = 101 MG/DL 70-99 H 2216) BUN (test code = 10 MG/DL 6-20 2207) CREATININE (test 0.75 MG/DL 0.60-1.30 code = 2214) eGFR (2020 CKD-EPI) 106 >60 (test code = 62353) ML/MIN/1.73 CALC BUN/CREAT (test 13 RATIO 6-28 code = 2235) SODIUM (test code = 141 MEQ/L 492-687 6629) POTASSIUM (test code 4.1 MEQ/L 3.5-5.4 = 2228) CHLORIDE (test code 103 MEQ/L 95-107 = [...] 149 U/L 40-114 H (test code = 4) AST (test code = 398 U/L 9-40 H 2217) ALT (test code = 329 U/L 5-40 H 2218) HEPATITIS PANEL, [id number] 03:45:56 Test Item Value Reference Range Interpretation Comments HEPATITIS A IgM (test NON-REACTIVE NON-REACTIVE code = 37047) HEPATITIS B CORE IgM NON-REACTIVE NON-REACTIVE (test code = 4644) HEPATITIS B SURF AG NON-REACTIVE NON-REACTIVE (test code = 2739) HEPATITIS C ANTIBODY NON-REACTIVE NON-REACTIVE (test code = 4675) INTERPRETATION (NOTE) Hepatitis A HEPATITIS A: (test serology shows no code = 2552) evidence of acu te hepatitis A. INTERPRETATION (NOTE) Hepatitis B HEPATITIS B: (test serology shows no code = 82132) evidence of ac sitka hepatitis B and no indication of exposure to hepatitis B vir us in the previous si xto eight months. INTERPRETATION (NOTE) Hepatitis C HEPATITIS C: (test serology shows no code = 45175) evidence of ex posure to hepatitisC v irus at this time. I t can take up to 12 m onths after exposure tothe hepatitis C vir us for antibodies to become detectab le in the blood in ce rtain patients. UNLES S OTHERWISE INDIC ATED, ALL TESTING PERFORMED [facility], [place]. [address] [place] [address] DANIELLE LEE DIRECTOR: SUNNY ROWE M.D. PATRICIAIA NUMBER [id number] [place] [id number]
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
[2023-02-08] MEDS ORDERED: TDAP (DIPHTH,PERTUSS(ACELL),TET VAC) 0.5 ML VIAL IMVAC ONE (23:57)
[2023-02-09 00:34] VITALS: TEMP 98.7
[2023-02-09 00:35] VITALS: BP 122/88; O2SAT 100
--- NOTE | 2023-02-09 18:25 | RAD REPORT ---
EXAM DESCRIPTION: RAD - Knee Right 3 View - 02/09/2023 12:05 am CLINICAL HISTORY: 37 years Female, PAIN COMPARISON: None. FINDINGS: 3 views of the right knee. Normal osseous mineralization. No acute fracture or dislocation . Joint spaces are intact. No joint effusion. Soft tissues are unremarkable. IMPRESSION: No acute radiographic abnormality. Electronically signed by: Kiana Diaz MD 02/09/2023 1:02 AM CDT Due to temporary technical issues with the PACS/Fluency reporting system, reports are being signed by the in house radiologists without review as a courtesy to insure prompt reporting. The interpreting radiologist is fully responsible for the content of the report.
== END 2023-02-09 00:26 | disposition home or self-care (01) ==
LOC: ER 23:03
DX: S80.211A Abrasion, right knee, initial encounter (principal); S80.01XA Contusion of right knee, initial encounter; W18.30XA Fall on same level, unspecified, initial encounter; Y04.8XXA Assault by other bodily force, initial encounter; F10.229 Alcohol dependence with intoxication, unspecified; K70.30 Alcoholic cirrhosis of liver without ascites; I10 Essential (primary) hypertension; F31.9 Bipolar disorder, unspecified
CPT/HCPCS: 96372; 99284

== ENCOUNTER 2023-02-15 23:12 | Emergency (ER) | payer OTHER ==
--- OUTSIDE RECORDS SUMMARY | 2023-02-15 23:16 | XMS REPORT | Continuity of Care Document ---
:1985 Author Organization [facility] t Address [address] [facility] [address] [place] [address] Care Team Providers Name Role Phone AWILDA THOMAS Primary Care Physician Unavailable Shannan Silvestre Attending Clinician Unavailable LUCINA DOCKERY Attending Clinician Unavailable AWILDA THOMAS Attending Clinician Unavailable NASRIN HER Attending Clinician Unavailable Anthony INDUSTRIAL GARAGE SERVICER, Nasrin Bella Attending Clinician GLENNA CAMARILLO Attending Clinician Unavailable Lucina Dockery CNM Attending Clinician Visit, [facility] Attending Clinician Unavailable William Awilda MASTERSON Attending Clinician [phone] Doctor Unassigned, [place] Attending Clinician Unavailable Anna Welch Attending Clinician ANNA AGUERO Attending Clinician Unavailable MENDY GOMES Attending Clinician Unavailable MARY LYMAN Attending Clinician Unavailable Mary yLman MD Attending Clinician Brooklyn Rodriguez Attending Clinician BROOKLYN WILKES Attending Clinician Unavailable Keshia Castrejon MD Attending Clinician Lily Alvarez Attending Clinician Mendy Morgan Attending Clinician LUCINA DOCKERY Admitting Clinician Unavailable MARY LYMAN Admitting Clinician Unavailable BROOKLYN WILKES Admitting Clinician Unavailable Payers Payer Name Policy Type Policy Number Effective Date Expiration Date Huy BERGMAN [id number] 2022 HEALTHCARE 00:00:00 [place] [id number] 2021 00:00:00 Problems Condition Condition Condition Status Onset Resolution Last Treating Co mments Source Name Details Category Date Date Treatment Clinician Date Pelvic Pelvic Disease Active Univers pain pain 2-09 ity of 00:00: [address] Encounter Encounter Disease Active Uni vers for for 416 [place]y [place] pres[place] Medical progestin- progestin- Br anch only only injected injected contracept contracept jacob jacob Irregular Irregular Disease Active Uni vers menses menses 8 ity of 00:00: [address] Well woman Well woman Disease Active U nivers exam exam 4-07 ity of 00:00: [address] Mollusca Mollusca Disease Active Unive rs contagiosa contagiosa 4 it y of 00:00: [address] Tobacco Tobacco Disease Active Univers use use 407 ity of disorder disorder 00:00: [address] Contracept Contracept Disease Active U nivers jacob jacob 1-07 [place] [facility] Allergies, Adverse Reactions, Alerts Allergy Allergy Status Severity Reaction(s) Onset Inactive Treating Comm ents Source Name Type Date Date Clinician NO KNOWN Drug Active Univers ALLERGIE Class ity of S [facility] Social History Social Habit Start Date Stop Date Quantity Comments Source History [facility] University o f Alcohol Frequency [facility] edical Branch History [facility] University o f Alcohol Std Drinks [facility] History [facility] o f Alcohol Binge [facility] al [place] History of tobacco Cigarette Smoker University of use [facility] Alcohol intake 2022-11-30 2022-11-30 Ex-drinker University 00:00:00 00:00:00 (finding) [facility] Exposure to 2022-09-30 2022-10-10 Not sure University SARS-CoV-2 (event) 00:00:00 12:49:00 [facility] Tobacco use and 2022-10-03 2022-10-03 Smokeless Universit y of exposure 00:00:00 00:00:00 tobacco non-user [facility] dical Branch Cigarettes smoked 2022-10-03 2022-10-03 Univers ity of current (pack per 00:00:00 00:00:00 [place] ) - Reported Branch Cigarette 2022-10-03 2022-10-03 University of pack-years 00:00:00 00:00:00 [facility] Tobacco Comment 2022-03-21 2022-03-21 states only Universi ty of 00:00:00 00:00:00 smokes on [facility] occasion Branch Alcohol Comment 2012-10-03 2012-10-03 socially Universit y of 00:00:00 00:00:00 [facility] Sex [birth year] Universit y of 00:00:00 00:00:00 [facility] Smoking Status Start Date Stop Date Source Occasional tobacco 2022-10-03 00:00:00 Universit y of [place] smoker Medical Branch Ex-smoker 2022-03-21 00:00:00 2022-03-21 [place] o f [place] 00:00:00 [facility] Medications Ordered Filled Start Stop Current Ordering Indication Dosage Frequency Signature Comments Components Source Medication Medication Date Date Medication? Clinician (SIG) Name Name ondansetron 2022- No 4mg 4 mg, Univ ers (ZOFRAN-ODT 11-30 Oral, ity of ) 15:00: 15:00 ONCE, 1 [place] disintegrat 00 :00 dose, On Medi jeimma ing tablet Kriss 11/30/22 Bra nch 4 mg at 1000, Routine ondansetron 0 Yes [id number] 4mg Take 1 Univers 4 mg - tablet by ity of disintegrat 00:00: mouth [place] ing tablet 00 every 8 Medica l (eight) Branch hours as needed for Nausea and Vomiting (N/V). cephALEXin 2022-0 2022- Yes [id number] 250mg Take 1 Univers 250 mg -07 07-05 capsule by ity of capsule 00:00: 04:59 mouth [place] 00 :00 every 6 Medical (six) Branch hours for 3 days. medroxyPROG 2023- No [id number] 150mg Univers ESTERone - 03-05 ity of (DEPO-PROVE 20:45: 21:44 [place] RA) syringe 00 :00 Medical 150 mg Branch medroxyPROG 2023- No [id number] 150mg 150 mg, Univers ESTERone - 03-05 Intramuscu ity of (DEPO-PROVE 20:45: 21:44 lar, [place] RA) syringe 00 :00 [id number], Med ical 150 mg 4 doses, Branch First dose on Sun10/03/22 at 1545, Last dose on Sun06/12/23 at 1545 medroxyPROG 2022-2023- No [id number] 150mg Univers ESTERone - 03-05 ity of (DEPO-PROVE 20:45: 21:44 [place] RA) syringe 00 :00 Medical 150 mg Branch medroxyPROG 2023- No [id number] 150mg 150 mg, Univers ESTERone 10-03 03-05 Intramuscu ity of (DEPO-PROVE 20:45: 21:44 [facility], [place] RA) syringe 00 :00 [id number], Med ical 150 mg 4 doses, Branch First dose on Sun10/03/22 at 1545, Last dose on Sun06/12/23 at 1545 medroxyPROG 2022-2023- No [id number] 150mg Univers ESTERone - 03-05 ity of (DEPO-PROVE 20:45: 21:44 [place] RA) syringe 00 :00 Medical 150 mg Branch medroxyPROG 2023- No [id number] 150mg Univers ESTERone 4- 03-05 ity of (DEPO-PROVE 20:45: 21:44 [place] RA) syringe 00 :00 Medical 150 mg [...] as needed for Pain. medroxyPROG 2022- No [id number] 150mg Univers ESTERone 07-11 ity of (DEPO-PROVE 22:30: 21:42 [place] RA) syringe 00 :00 Medical 150 mg Branch medroxyPROG 2022- No [id number] 150mg 150 mg, Univers ESTERone 07-11 Intramuscu ity of (DEPO-PROVE 22:30: 21:42 lar, ONCE, [place] RA) syringe 00 :00 1 dose, On Me dical 150 mg Tue Branch 07/11/22 at 1630, Routine medroxyPROG 2021- No [id number] 150mg Univers ESTERone 03-21 ity of (DEPO-PROVE 19:45: 18:52 [place] RA) syringe 00 :00 Medical 150 mg Branch medroxyPROG 2021- No [id number] 150mg 150 mg, Univers ESTERone 03-21 Intramuscu ity of (DEPO-PROVE 19:45: 18:52 lar, ONCE, [place] RA) syringe 00 :00 1 dose, On Me dical 150 mg Tue Branch 03/21/22 at 1445, Routine medroxyPROG 2020-07- No [id number] 150mg Univers ESTERone 06-02 ity of (DEPO-PROVE 20:15: 20:14 [place] RA) 00 :00 Medical injection Branch 150 mg medroxyPROG 2020-07- No [id number] 150mg 150 mg, Univers ESTERone 06-02 Intramuscu ity of (DEPO-PROVE 20:15: 20:14 lar, [place] RA) 00 :00 [id number], Medical injection 4 doses, Branch 150 mg First dose on Sun07/01/21 at 1415, Last dose on Sun03/10/22 at 1415, Routine medroxyPROG 2020-07- No [id number] 150mg Univers ESTERone 06-02 ity of (DEPO-PROVE 20:15: 20:14 [place] RA) 00 :00 Medical injection Branch 150 mg medroxyPROG 2020-07- No [id number] 150mg Univers ESTERone 06-02 ity of (DEPO-PROVE 20:15: 20:14 [place] RA) 00 :00 Medical injection Branch 150 mg medroxyPROG 2020-07- No [id number] 150mg 150 mg, Univers ESTERone 06-02 Intramuscu ity of (DEPO-PROVE 20:15: 20:14 lar, [place] RA) 00 :00 [id number], Medical injection 4 doses, Branch 150 mg First dose on Sun07/01/21 at 1415, Last dose on Sun03/10/22 at 1415, Routine medroxyPROG 2020-07- No [id number] 150mg Univers ESTERone 06-02 ity of (DEPO-PROVE 20:15: 20:14 [place] RA) 00 :00 Medical injection Branch 150 mg medroxyPROG 2020-07- No [id number] 150mg 150 mg, Univers ESTERone 06-02 Intramuscu ity of (DEPO-PROVE 20:15: 20:14 [facility], [place] RA) 00 :00 [id number], Medical injection 4 doses, Branch 150 mg First dose on Sun07/01/21 at 1415, Last dose on Sun03/10/22 at 1415, Routine medroxyPROG 2020-07- No [id number] 150mg Univers ESTERone 06-02 ity of (DEPO-PROVE 20:15: 20:14 [place] RA) 00 :00 Medical injection Branch 150 mg cephALEXin 2020-07 Yes [id number] 500mg Take 1 Univers (KEFLEX) 2-29 capsule by ity o f 500 mg 00:00: mouth 3 [place] capsule 00 (three) Medical times Branch daily. cephALEXin 2020-07 Yes [id number] 500mg Take 1 Univers (KEFLEX) 2-29 capsule by ity o f 500 mg 00:00: mouth 3 [place] capsule 00 (three) Medical times Branch daily. cephALEXin 2020-07 Yes [id number] 500mg Take 1 Univers (KEFLEX) 2-29 capsule by ity o f 500 mg 00:00: mouth 3 [place] capsule 00 (three) Medical times Branch daily. cephALEXin 2020-07 Yes [id number] 500mg Take 1 Univers (KEFLEX) 2-29 capsule by ity o f 500 mg 00:00: mouth 3 [place] capsule 00 (three) Medical times Branch daily. cephALEXin 2020-07 Yes [id number] 500mg Take 1 Univers (KEFLEX) 2-29 capsule by ity o f 500 mg 00:00: mouth 3 [place] capsule 00 (three) Medical times Branch daily. cephALEXin 2020-07 Yes [id number] 500mg Take 1 Univers (KEFLEX) 2-29 capsule by ity o f 500 mg 00:00: mouth 3 [place] capsule 00 (three) Medical times Branch daily. cephALEXin 2020-07 Yes [id number] 500mg Take 1 Univers (KEFLEX) 2-29 capsule by ity o f 500 mg 00:00: mouth 3 [place] capsule 00 (three) Medical times Branch daily. cephALEXin 2020-07 Yes [id number] 500mg Take 1 Univers (KEFLEX) 2-29 capsule by ity o f 500 mg 00:00: mouth 3 [place] capsule 00 (three) Medical times Branch daily. cephALEXin 2020-07- No [id number] 500mg Take 1 Univers (KEFLEX) 2-29 04-04 capsule by ity of 500 mg 00:00: 00:00 mouth 3 [place] capsule 00 :00 (three) Medical times Branch daily. cephALEXin 2020-07- No [id number] 500mg Take 1 Univers (KEFLEX) 2-29 04-04 capsule by ity of 500 mg 00:00: 00:00 mouth 3 [place] capsule 00 :00 (three) Medical times Branch daily. naproxen Yes [id number] 250mg Take 1 Un evaristo 250 mg 2-09 tablet by ity of tablet 00:00: mouth [place] 00 every 8 Medical (eight) Branch hours as needed for Pain (scale 4-6). Take 500mg followed by 250mg every 6-8 hours naproxen Yes [id number] 250mg Take 1 Un evaristo 250 mg 2-09 tablet by ity of tablet 00:00: mouth [place] every 8 Medical (eight) Branch hours as needed for Pain (scale 4-6). Take 500mg followed by 250mg every 6-8 hours naproxen 202-0 Yes [id number] 250mg Take 1 Un evaristo 250 mg 2-09 tablet by ity of tablet 00:00: mouth [place] 00 every 8 Medical (eight) Branch hours as needed for Pain (scale 4-6). Take 500mg followed by 250mg every 6-8 hours naproxen 2021-0 Yes [id number] 250mg Take 1 Un evaristo 250 mg 2-09 tablet by ity of tablet 00:00: mouth [place] 00 every 8 Medical (eight) Branch hours as needed for Pain (scale 4-6). Take 500mg followed by 250mg every 6-8 hours naproxen 2020-0 Yes [id number] 250mg Take 1 Un evaristo 250 mg 2-09 tablet by ity of tablet 00:00: mouth [place] 00 every 8 Medical (eight) Branch hours as needed for Pain (scale 4-6). Take 500mg followed by 250mg every 6-8 hours naproxen 2020-0 Yes [id number] 250mg Take 1 Un evaristo 250 mg 2-09 tablet by ity of tablet 00:00: mouth [place] 00 every 8 Medical (eight) Branch hours as needed for Pain (scale 4-6). Take 500mg followed by 250mg every 6-8 hours naproxen 2020-0 Yes [id number] 250mg Take 1 Un evaristo 250 mg 2-09 tablet by ity of tablet 00:00: mouth [place] 00 every 8 Medical (eight) Branch hours as needed for Pain (scale 4-6). Take 500mg followed by 250mg every 6-8 hours naproxen 2020-0 Yes [id number] 250mg Take 1 Un evaristo 250 mg 2-09 tablet by ity of tablet 00:00: mouth [place] 00 every 8 Medical (eight) Branch hours as needed for Pain (scale 4-6). Take 500mg followed by 250mg every 6-8 hours naproxen 202-0 2023- No [id number] 250mg Take 1 U nivers 250 mg 2-09 04-04 tablet by ity of tablet 00:00: 00:00 mouth [place] 00 :00 every 8 Medical (eight) Branch hours as needed for Pain (scale 4-6). Take 500mg followed by 250mg every 6-8 hours naproxen 202-0 2023- No [id number] 250mg Take 1 U nivers 250 mg [...] Immunizations Ordered Filled Immunization Date Status Comments [facility] e Immunization Name Name [facility] 2022-03-21 Completed University of 00:00:00 [place] [id number] 2022-03-21 Completed University of 00:00:00 [place] [address] 2022-03-21 Completed University of 00:00:00 [place] [address] 2022-03-21 Completed University of 00:00:00 [place] [address] 2022-03-21 Completed University of 00:00:00 [place] [address] 2022-03-21 Completed University of 00:00:00 [place] [address] 2022-03-21 Completed University of 00:00:00 [place] [address] 2022-03-21 Completed University of 00:00:00 [place] [address] 2021-08-31 Completed University of 00:00:00 [place] [address] 2021-08-31 Completed University of 00:00:00 [facility] 2021-08-31 Completed University of 00:00:00 [place] [address] 2021-08-31 Completed University of 00:00:00 [facility] 2021-08-31 Completed University of 00:00:00 [place] [address] 2021-08-31 Completed University of 00:00:00 [place] [address] 2021-08-31 Completed University of 00:00:00 [place] [address] 2021-08-31 Completed University of 00:00:00 [facility] 2021-08-31 Completed University of 00:00:00 [facility] 2021-08-31 Completed University of 00:00:00 [facility] 2021-08-31 Completed University of 00:00:00 [place] [address] 2021-07-01 Completed University of 00:00:00 [place] [address] 2021-07-01 Completed University of 00:00:00 [facility] 2021-07-01 Completed University of 00:00:00 [place] [address] 2021-07-01 Completed University of 00:00:00 [facility] 2021-07-01 Completed University of 00:00:00 [facility] HPV9 2021-07-01 Completed University of 00:00:00 [facility] HPV9 2021-07-01 Completed University of 00:00:00 [facility] HPV9 2021-07-01 Completed University of 00:00:00 [facility] HPV9 2021-07-01 Completed University of 00:00:00 [facility] HPV9 2021-07-01 Completed University of 00:00:00 [facility] HPV9 2021-07-01 Completed University of 00:00:00 [facility] HPV9 2021-07-01 Completed University of 00:00:00 [facility] SARS-COV-2 COVID-19 2021-05-09 Completed Unive rsity of PFIZER VACCINE 00:00:[address] [facility] [place] [place] SARS-COV-2 COVID-19 2021-05-09 Completed Unive rsity of PFIZER VACCINE 00:00:[address] [facility] [place] [place] SARS-COV-2 COVID-19 2021-05-09 Completed Unive rsity of PFIZER VACCINE 00:00:[address] [facility] [place] [place] SARS-COV-2 COVID-19 2021-05-09 Completed Unive rsity of PFIZER VACCINE 00:00:[address] [facility] [place] [place] Influenza Virus 2020-05-06 Completed Universit y of Vaccine Quad .5 mL 00:00:00 [facility] 6+ MO Branch Influenza Virus 2020-05-06 Completed Universit y of Vaccine Quad .5 mL 00:00:00 [facility] IM 6+ MO Branch Influenza Virus 2020-05-06 Completed Universit y of Vaccine [place] .5 mL 00:00:00 [place] Medical IM 6+ MO Branch Influenza Virus 2020-05-06 Completed Universit y of Vaccine [place] .5 mL 00:00:00 [place] [facility] IM 6+ MO Branch Influenza Virus 2020-05-06 Completed Universit y of Vaccine [place] .5 mL 00:00:00 [place] [facility] IM 6+ MO Branch Influenza Virus 2020-05-06 Completed Universit y of Vaccine Quad .5 mL 00:00:00 [place] [facility] IM 6+ MO Branch Influenza Virus 2020-05-06 Completed Universit y of Vaccine [place] .5 mL 00:00:00 [place] [facility] IM 6+ MO Branch Influenza Virus 2020-05-06 Completed Universit y of Vaccine [place] .5 mL 00:00:00 [place] [facility] IM 6+ MO Branch Influenza Virus 2020-05-06 Completed Universit y of Vaccine [place] .5 mL 00:00:00 [facility] IM 6+ MO Branch Influenza Virus 2020-05-06 Completed Universit y of Vaccine [place] .5 mL 00:00:00 [facility] IM 6+ MO Branch Influenza Virus 2020-05-06 Completed Universit y of Vaccine [place] .5 mL 00:00:00 [facility] IM 6+ MO Branch Influenza Virus 2020-05-06 Completed Universit y of Vaccine [place] .5 mL 00:00:00 [facility] IM 6+ MO Branch TDAP 2011-10-31 Completed University of 00:00:00 [facility] TDAP 2011-10-31 Completed University of 00:00:00 [facility] TDAP 2011-10-31 Completed University of 00:00:00 [facility] TDAP 2011-10-31 Completed University of 00:00:00 [facility] TDAP 2011-10-31 Completed University of 00:00:00 [facility] TDAP 2011-10-31 Completed University of 00:00:00 [facility] TDAP 2011-10-31 Completed University of 00:00:00 [facility] TDAP 2011-10-31 Completed University of 00:00:00 [facility] TDAP 2011-10-31 Completed University of 00:00:00 [facility] TDAP 2011-10-31 Completed University of 00:00:00 [facility] TDAP 2011-10-31 Completed University of 00:00:00 [facility] TDAP 2011-10-31 Completed University of 00:00:00 [facility] Vital Signs Vital Name Observation Time Observation Value Comments Source Systolic blood 2022-11-30 13:21:00 142 mm[Hg] Univer sity of pressure [facility] Diastolic blood 2022-11-30 13:21:00 87 mm[Hg] Unive rsity of pressure [facility] Heart rate 2022-11-30 13:21:00 97 /min [facility] Body temperature 2022-11-30 13:21:00 37.22 Sushma [facility] 2022-11-30 13:21:00 18 /min [facility] Body height 2022-11-30 13:21:00 157.5 cm [facility] Body weight 2022-11-30 13:21:00 51.256 kg Universi ty of [place] [facility] BMI 2022-11-30 13:21:00 20.67 kg/m2 Universi ty of [place] [facility] Oxygen saturation in 2022-11-30 13:21:00 99 /min University of Arterial blood by [facility] Pulse oximetry Branch Systolic blood 2022-10-03 20:28:00 137 mm[Hg] Univer sity of pressure [place] [facility] Diastolic blood 2022-10-03 20:28:00 82 mm[Hg] Unive rsity of pressure [place] [facility] Heart rate 2022-10-03 20:28:00 76 /min Universi ty of [facility] Body temperature 2022-10-03 20:28:00 36.28 Sushma Univ ersity of [facility] Branch Respiratory rate 2022-10-03 20:28:00 20 /min Univ ersity of [place] [facility] Body height 2022-10-03 20:28:00 154.9 cm Universi ty of [place] [facility] [place] Body weight 2022-10-03 20:28:00 54.205 kg Universi ty of [place] [facility] BMI 2022-10-03 20:28:00 22.58 kg/m2 Universi ty of [place] [facility] Systolic blood 2022-07-11 20:09:00 138 mm[Hg] Univer sity of pressure [place] [facility] Diastolic blood 2022-07-11 20:09:00 88 mm[Hg] Unive rsity of pressure [place] [facility] Heart rate 2022-07-11 20:09:00 94 /min Universi ty of [place] [facility] [place] Body temperature 2022-07-11 20:09:00 36.33 Sushma Univ ersity of [place] [facility] Respiratory rate 2022-07-11 20:09:00 18 /min Univ ersity of [place] [facility] Body weight 2022-07-11 20:09:00 56.79 kg Universi ty of [place] [facility] BMI 2022-07-11 20:09:00 23.66 kg/m2 Universi ty of [place] [facility] Systolic blood 2022-03-21 18:47:00 118 mm[Hg] manual Univer sity of pressure [place] [facility] Diastolic blood 2022-03-21 18:47:00 86 mm[Hg] manual Unive rsity of pressure [place] [facility] Heart rate 2022-03-21 18:45:00 77 /min Universi ty of [place] [facility] Body temperature 2022-03-21 18:45:00 36.11 Sushma Univ ersity of [place] [facility] Respiratory rate 2022-03-21 18:45:00 18 /min Univ ersity of [place] [facility] Body height 2022-03-21 18:45:00 154.9 cm Universi ty of [place] [facility] Body weight 2022-03-21 18:45:00 59.149 kg Universi ty of [place] [facility] BMI 2022-03-21 18:45:00 24.64 kg/m2 Universi ty of [place] [facility] Systolic blood 2021-12-27 18:42:00 134 mm[Hg] Univer sity of pressure [place] [facility] Diastolic blood 2021-12-27 18:42:00 86 mm[Hg] Unive rsity of pressure [place] [facility] Heart rate 2021-12-27 18:42:00 84 /min Universi ty of [place] [facility] Body temperature 2021-12-27 18:42:00 36.33 Sushma Univ ersity of [place] [facility] Respiratory rate 2021-12-27 18:42:00 18 /min Univ ersity of [place] [facility] Body weight 2021-12-27 18:42:00 59.92 kg Universi ty of [place] [facility] BMI 2021-12-27 18:42:00 24.96 kg/m2 Universi ty of [place] [facility] Systolic blood 2021-10-04 18:44:00 128 mm[Hg] Univer sity of pressure [place] [facility] Diastolic blood 2021-10-04 18:44:00 87 mm[Hg] Unive rsity of pressure [place] [facility] Heart rate 2021-10-04 18:44:00 72 /min Universi ty of [place] [facility] Body temperature 2021-10-04 18:44:00 35.83 Sushma Univ ersity of [place] [facility] Respiratory rate 2021-10-04 18:44:00 18 /min Univ ersity of [place] [facility] Body height 2021-10-04 18:44:00 154.9 cm Universi ty of [place] [facility] Body weight 2021-10-04 18:44:00 60.442 kg Universi ty of [place] [facility] BMI 2021-10-04 18:44:00 25.18 kg/m2 Universi ty of [place] [facility] Systolic blood 2021-08-31 18:58:00 111 mm[Hg] Univer sity of pressure [place] [facility] Diastolic blood 2021-08-31 18:58:00 71 mm[Hg] Unive rsity of pressure [place] [facility] Heart rate 2021-08-31 18:58:00 82 /min Universi ty of [facility] Body temperature 2021-08-31 18:58:00 36.17 Sushma Univ ersity of [facility] Respiratory rate 2021-08-31 18:58:00 16 /min Univ ersity of [facility] Body height 2021-08-31 18:58:00 154.9 cm Universi ty of [place] [facility] Body weight 2021-08-31 18:58:00 61.236 kg Universi ty of [place] [facility] BMI 2021-08-31 18:58:00 25.51 kg/m2 Universi ty of [facility] Systolic blood 2021-07-01 19:55:00 129 mm[Hg] Univer sity of pressure [facility] Branch Diastolic blood 2021-07-01 19:55:00 92 mm[Hg] Unive rsity of pressure [place] [facility] [place] Heart rate 2021-07-01 19:34:00 82 /min Universi ty of [place] [facility] Body temperature 2021-07-01 19:34:00 36.17 Sushma Univ ersity of [place] [facility] [place] Respiratory rate 2021-07-01 19:34:00 18 /min Univ ersity of [facility] Body height 2021-07-01 19:34:00 154.9 cm Universi ty of [place] [facility] [place] Body weight 2021-07-01 19:34:00 60.963 kg Universi ty of [place] [facility] BMI 2021-07-01 19:34:00 25.39 kg/m2 Universi ty [facility] [place] [facility] Procedures Procedure Date / Time Performing Clinician Source Performed ASSIGNMENT OF BENEFITS 2022-11-30 13:58:12 Doctor Unassigned, No [facility] RAPID STREP SCREEN FOR 2022-11-30 13:51:00 Nasrin Her [facility] POCT TEST 2022-11-30 13:40:00 Nasrin Her [facility] URINALYSIS 2022-11-30 13:38:00 Nasrin Her [facility] RAPID INFLUENZA A/B 2022-11-30 13:38:00 Nasrin Her Univers [facility] COVID-19 (ID NOW RAPID 2022-11-30 13:38:00 Nasrin Her [facility] TESTING) [facility] CONSENT/REFUSAL FOR 2022-11-30 13:11:51 Doctor Unassigned, No [facility] [place] DI[facility]NOSIS AND TREATMENT Name [facility] US PELVIS COMPLETE WITH 2022-10-17 14:25:42 Lucina Dockery [facility] TRANSVAGINAL [facility] POCT TEST 2022-07-11 20:10:00 Awilda Thomas Uni versity of [facility] ASSIGNMENT OF BENEFITS 2022-07-11 19:44:20 Doctor Unassigned, No [facility] CONSENT/REFUSAL FOR 2022-07-11 19:44:01 Doctor Unassigned, No [facility] [place] [facility] Name [facility] GARDASIL 9 (HPV 9V) 2022-03-21 18:30:38 Awilda Thomas Uni versity of [facility] POCT TEST 2021-10-04 18:51:00 Awilda Thomas Uni versity of [facility] GARDASIL 9 (HPV 9V) 2021-08-31 19:03:43 Anna Aguero [facility] GARDASIL 9 (HPV 9V) 2021-07-01 20:10:59 Awilda Thomas Uni versity of [facility] Encounters Start End Encounter Admission Attending Care Care Encounter Source Date/Time Date/Time Type Type Clinicians Facility Department ID 2023-01-09 [id number] Common 15:00:00 Shannan [id number] [facility] 2021-05-01 Emergency X MDMB ERT [id number] Univers 16:51:42 ity [facility] 2021-05-01 Emergency [facility] [id number] Univers 16:50:47 ity of [facility] 2023-02-122023-02-12 Outpatient R [facility] [id number] Univers 14:00:00 14:00:00 ity [facility] 2023-01-03 2023-01-03 Outpatient SFA SFA [id number] Heri 10:40:08 10:40:08 0705 [facility] [place] 2022-12-26 2022-12-26 Outpatient R AKINSIPE, [facility] [id number] Univers 13:30:00 13:30:00 AWILDA ity o f [facility] 2022-12-01 2022-12-01 Outpatient SFA SFA [id number] Heri 14:18:41 14:18:41 0602 F [place] 2022-11-30 2022-11-30 [facility] [id number] Univers 08:25:00 10:30:00 NASRIN [facility] 2022-11-30 2022-11-30 Emergency [facility] [id number] Univers 08:25:00 10:30:00 Nasrin HUMPHREYS 350.1.13.10 [facility] 4.2.7.2.686 [facility] [id number] [address] 2022-11-16 2022-11-16 Outpatient SFA SFA [id number] Heri 11:35:18 11:35:18 0518 [facility] [place] 2022-11-14 2022-11-14 Outpatient SFA SFA [id number] Heri 11:01:17 11:01:17 0516 F [place] 2022-11-13 2022-11-13 Outpatient JIE CAMARILLO [id number] Jie 13:30:00 13:30:00 GLENNA earl 2022-11-13 2022-11-13 Outpatient SFA SFA [id number] Heri 12:15:58 12:15:58 0515 F [place] 2022-10-17 2022-10-17 Out[facility] [id number] Univers 08:44:41 23:59:00 LUCINA [facility] 2022-10-17 2022-10-17 [facility] 1.2.840.114 [id number] Univers 08:44:41 23:59:00 Encounter Lucina Osorio [facility] 350.1.13.10 ity of [place] 4.2.7.2.686 [place] STEUB[place] [id number] [place] [address] ([facility]) 2022-10-03 2022-10-03 Outpatient [facility] [id number] Univers 15:15:00 16:04:45 LUCINA ity [facility] 2022-10-03 2022-10-03 Office [facility] 1.2.840.114 [id number] Univers 15:15:00 16:04:45 Visit Lucina A COAL MILL OPERATOR 350.1.13.10 i ty of [facility] 4.2.7.2.686 [place]at[place]y as MATERNAL [id number] [facility] ical & CHILD [address] [place] [address] 2022-10-03 2022-10-03 Outpatient R [facility] [id number] Univers 13:00:00 13:00:00 AWILDA ward [facility] 2022-07-28 2022-07-28 Outpatient R WILLIAM, [facility] [id number] Univers 08:15:00 08:15:00 AWILDA ward [facility] 2022-07-11 2022-07-11 Outpatient R WILLIAM, [facility] [id number] Univers 13:30:00 14:07:31 AWILDA ward [facility] 2022-07-11 2022-07-11 Nurse Visit, JarochoRmchp Nurse [facility] 1.2 .840.114 [id number] Univers 13:30:00 14:07:31 Visit Awilda Thomas COAL MILL OPERATOR 350.1.13. 10 ity of [facility] 4.2.7.2.686 [place]y as MATERNAL [id number] [facility] ical & CHILD [address] [place] [address] 2022-07-11 2022-07-11 Orders Doctor NAIK 1.2.840.114 [id number] Univers 00:00:00 00:00:00 Only Unassigned, BERKLEY 350.1.13.10 ity of [facility] 4.2.7.2.686 Anatoliy as [id number] [address] 2022-07-10 2022-07-10 Telephone William [facility] 1.2.840.114 [id number] Univers 00:00:00 00:00:00 Awilda Mendez COAL MILL OPERATOR 350.1.13.10 ity of [facility] 4.2.7.2.686 [place]y as MATERNAL [id number] [facility] & CHILD [address] [place] [address] 2022-07-03 2022-07-03 Outpatient [facility] [id number] Univers 13:30:00 13:30:00 AWILDA ward [facility] 2022-03-21 2022-03-21 Nurse Visit, Cammie Nurse [facility] 1.2 .840.114 [id number] Univers 13:30:00 13:45:25 Visit Anna Aguero COAL MILL OPERATOR 350.1.13.10 ity of [place] [id number] Anatoliy as MATERNAL [id number] [address] 2022-03-21 2022-03-21 Outpatient Anne AGUERO [facility] [id number] Univers 13:30:00 13:30:00 ANNA ward [facility] 2021-12-30 2021-12-30 Outpatient R [facility] [id number] Univers 13:00:00 13:00:00 ity of [facility] 2021-12-27 2021-12-27 Nurse Visit, Cammie Nurse [facility] 1.2 .840.114 [id number] Univers 13:30:00 13:47:23 Visit Anna Aguero COAL MILL OPERATOR 350.1.13.10 ity of [facility] 4..7.2.686 [place]y as MATERNAL [id number] [address] 2021-12-27 2021-12-27 [address] [facility] [id number] Univers 13:30:00 13:30:00 ANNA ward [facility] 2021-11-30 2021-11-30 Outpatient R WILLIAM [facility] [id number] Univers 14:30:00 14:30:00 AWILDA adrian o dave [facility] 2021-10-04 2021-10-04 Nurse Visit, Matildep Nurse [facility] 1.2 .840.114 [id number] Univers 13:30:00 13:57:52 Visit Anna Aguero R COAL MILL OPERATOR 350.1.13.10 ity [facility] 4.2.7.2.686 Anatoliy as MATERNAL [id number] [facility] & [address] 2021-10-04 2021-10-04 [address] [id number] Univers 13:30:00 13:30:00 ANNA adrian o [facility] 2021-09-23 2021-09-23 Outpatient R [facility] [id number] Univers 13:00:00 13:00:00 ity [facility] 2021-09-23 2021-09-23 [address] [id number] Univers 13:00:00 13:00:00 ANNA adrian o [facility] 2021-08-31 2021-08-31 Outpatient R [facility] [id number] Univers 13:30:00 13:30:00 ity [facility] 2021-08-31 2021-08-31 [address] [facility] [address] [id number] Univers 13:30:00 13:30:00 ANNA adrian o dave [facility] 2021-08-31 2021-08-31 Nurse Visit, Cammie Nurse [facility] 1.2 .840.114 [id number] Univers 13:30:00 13:30:00 Visit Anna Aguero Anne COAL MILL OPERATOR 350.1.13.10 ity of [facility] 4.2.7.2.686 [place]y as MATERNAL [id number] [facility] & [address] 2021-07-01 2021-07-01 Outpatient [facility] [id number] Univers 13:15:00 14:10:58 AWILDA adrian o [facility] 2021-07-01 2021-07-01 Office [facility] 1.2.120.460 [id number] Univers 13:15:00 14:10:58 Visit Awilda Mendez COAL MILL OPERATOR 350.1.13.10 ity [facility] 4.2.7.2.686 Anatoliy as MATERNAL [id number] Med ical & CHILD [address] [place] [address] 2021-07-01 2021-07-01 Outpatient R WILLIAM [facility] [id number] Univers 09:00:00 09:00:00 AWILDAROSE ward dave [facility] 2021-07-01 2021-07-01 Outpatient R WILLIAM [facility] [id number] Univers 09:00:00 09:00:00 AWILDA acosta [facility] 2021-06-29 2021-06-29 Outpatient Anne GOMES [facility] [id number] Univers 13:00:00 13:00:00 MENDY adrian [facility] 2021-06-29 2021-06-29 [address] [id number] Univers 13:00:00 13:00:00 MENDY timo [facility] 2021-06-28 2021-06-29 Emergency [facility] [id number] Univers 23:27:00 04:47:00 MARY [facility] 2021-06-28 2021-06-29 Emergency [facility] 1.2.469.018 [id number] Univers 23:27:00 04:47:00 [facility] 350.1.13.10 i ty [facility] 4.2.7.2.686 [facility] [id number] [address] 2021-06-28 2021-06-29 Emergency [facility] E[facility] [id number] Univers 23:27:00 04:47:00 MARY timo [facility] 2021-05-10 2021-05-10 [address] [id number] Univers 13:30:00 13:30:00 MENDY [facility] 2021-04-15 2021-04-15 Emergency Chung [facility] 1.2.840.114 [id number] Univers 19:01:00 23:04:00 [place] 350.1.13.10 i ty [facility] 4.2.7.2.686 [facility] [id number] [address] 2021-04-15 2021-04-15 Emergency X CHUNG, [facility] ERT [id number] Univers 19:01:00 23:04:00 BROOKLYN [facility] 2021-04-06 2021-04-06 [facility] 1.2 .840.114 [id number] Univers 13:20:16 13:45:56 Visit Anna Aguero COAL MILL OPERATOR 350.1.13.10 ity [facility] 4.2.7.2.686 [place]y as MATERNAL [id number] [facility] ical & CHILD [address] [place] [address] 2021-04-06 2021-04-06 Outpatient R LACI [facility] [id number] Univers 13:30:00 13:30:00 ANNA ward [facility] 2021-01-13 2021-01-13 Outpatient R [facility] [id number] Univers 13:30:00 13:30:00 [facility] 2021-01-12 2021-01-12 [facility] 1.2 .840.114 [id number] Univers 12:58:10 13:14:44 Visit Awilda Thomas COAL MILL OPERATOR 350.1.13. 10 [facility] 4.2.7.2.686 [place] as MATERNAL [id number] [facility] & [address] 2021-01-12 2021-01-12 Outpatient R [facility] [id number] Univers 13:00:00 [facility]-01-12 2021-01-12 Outpatient R [facility] [id number] Univers 13:00:00 13:00:00 AWILDA acosta [facility] 2020-11-01 2020-11-01 Emergency [place] [facility] 1.2.840.114 [id number] 22:05:00 22:06:00 , [place] 350.1.13.10 4.2.7.2.686 [id number] 2020-11-01 2020-11-01 Emergency [place] [facility] 1.2.840.114 [id number] Univers 22:05:00 22:06:00 , [place] C[facility] 350.1.13.10 it [place] [id number] [facility] [address] 2020-11-01 2020-11-01 Emergency Shahid, K [facility] 1.2.840.114 [id number] 17:05:00 20:46:00 [place] 350.1.13.10 [place] 4.2.7.2.686 [place] [id number] 2020-11-01 2020-11-01 Emergency [facility] 1.2.840.114 [id number] Univers 17:05:00 20:46:00 Ayana [place] 350.1.13.10 i ty of [place].2.7.2.[place] [id number] [facility] [address] [place] 2020-11-01 2020-11-01 Office [facility] 1.2.840.114 [id number] 13:58:16 14:28:58 Visit Anna R COAL MILL OPERATOR 350.1.13.10 REGIONAL 4.2.7.2.686 MATERNAL [id number] & CHILD [address] [place] [address] 2020-11-01 2020-11-01 Office [facility] 1.2.840.114 [id number] Univers 13:58:16 14:28:58 Visit Silviaa R COAL MILL OPERATOR 350.1.13.10 ity of [facility] 4.2.7.2.686 Anatoliy as MATERNAL [id number] Med ical & CHILD [address] [place] [address] 2020-11-01 2020-11-01 Outpatient R LACI [facility] [id number] Univers 14:00:00 14:00:00 CONRADNDA ity o f [facility] 2020-10-21 2020-10-21 Nurse Visit, Cammie Nurse [facility] 1.2 .840.114 [id number] Univers 14:54:52 15:08:41 Visit Dianne Agueromikey Rodríguez COAL MILL OPERATOR 350.1.13.10 ity of [facility] 4.2.7.2.686 Anat[place]y as MATERNAL [id number] [facility] & CHILD [address] [place] [address] 2020-10-21 2020-10-21 Outpatient R [facility] [id number] Univers 14:30:00 14:30:00 ity [facility] 2020-08-13 2020-08-13 Telephone [facility] 1.2.840.114 [id number] Univers 00:00:00 00:00:00 Awilda Mendez COAL MILL OPERATOR 350.1.13.10 ity of [facility] 4.2.7.2.686 Anat[place]y as MATERNAL [id number] [facility] & CHILD [address] [place] [address] 2020-08-10 2020-08-10 Outpatient R WILLIAM [facility] [id number] Univers 13:45:00 13:45:00 AWILDA adrian o f [facility] 2020-07-29 2020-07-29 Nurse Visit, Cammie Nurse [facility] 1.2 .840.114 [id number] Univers 14:20:34 14:34:34 Visit AgueroAnna COAL MILL OPERATOR 350.1.13.10 ity of [facility] 4.2.7.2.686 [place]y as MATERNAL [id number] [facility] & CHILD [address] [place] [address] 2020-07-29 2020-07-29 Outpatient R [facility] [id number] Univers 14:30:00 14:30:00 ity [facility] 2020-05-06 2020-05-06 Office Eliseo [facility] [id number] [id number] Univers 15:32:18 16:10:31 Visit Mendy Jesus COAL MILL OPERATOR 350.1.13.10 it y of [place] 4.2.7.2.686 [place] as MATERNAL [id number] [facility] & CHILD [address] [place] [address] 2020-05-06 2020-05-06 Outpatient [facility] [id number] Univers 15:30:00 15:30:00 MENDY adrian [facility] 2020-05-06 2020-05-06 Orders Doctor HEENA 1.2.840.114 [id number] Univers 00:00:00 00:00:00 Only Unassigned, BERKLEY 350.1.13.10 [facility] 4.2.7.2.686 [place]y as [id number] [address] 2020-02-11 2020-02-11 Outpatient R [facility] [id number] Univers 13:30:00 13:30:00 ity [facility] 2019-11-19 2019-11-19 Nurse Visit[facility] 1.2 .840.114 [id number] Univers 13:54:25 14:01:32 Visit Anna Aguero COAL MILL OPERATOR 350.1.13.10 ity [facility] 4..7.2.686 An[place]oliy as MATERNAL [id number] Med ical & CHILD [address] [facility] 2019-11-19 2019-11-19 Outpatient R [facility] [id number] Univers 13:30:00 13:30:00 ity [facility] 2019-08-27 2019-08-27 Nurse Visit, Cammie Nurse [facility] 1.2 .840.114 [id number] Univers 13:46:00 14:04:52 Visit Anna Aguero COAL MILL OPERATOR 350.1.13.10 ity [facility] 4.2.7.2.686 [place]y as MATERNAL [id number] Med ical & CHILD [address] [place] [address] 2019-08-27 2019-08-[address] [facility] [facility] [id number] Univers 13:30:00 13:30:00 ANNA acosta [facility] 2019-03-11 2019-03-11 Office [facility] [id number] [id number] Univers 14:03:33 14:50:27 Visit Mendy Jesus COAL MILL OPERATOR 350.1.13.10 it y of [facility] 4.2.7.2.686 Anatoliy as MATERNAL [id number] Med ical & CHILD [address] [facility] 2019-03-11 2019-03-11 Orders Doctor HEENA 1.2.840.114 [id number] Univers 00:00:00 00:00:00 Only Unassigned, BERKLEY 350.1.13.10 ity of [facility] 4.2.7.2.686 [place]y as [id number] [address] Results Test Description Test Time Test Comments Results Result Comments Source POCT TEST 2022-11-30 13:40:00 Test Item Value Reference Range Interpretation Comme nts POCT PREG (test code = 1605) Negative On board controls acceptable with C Line (test code = 3574) Yes POCT PREG LOT # (test code = 3575) [id number] POCT PREG TEST DATE (test code = 3576) 04/05/2024 Lab Interpretation (test code = 45515-1) [id number] 20:10:00 Test Item Value Reference Range Interpretation Comments POCT PREG (test code = 1605) Negative On board controls acceptable with C Yes Line (test code = 3574) POCT PREG LOT # (test code = 3575) POCT PREG TEST DATE (test code = 3576) [facility] [id number] 18:51:00 Test Item Value Reference Range Interpretation Comments POCT PREG (test code = 1605) Negative On board controls acceptable with C Yes Line (test code = 3574) POCT PREG LOT # (test code = 3575) POCT PREG TEST DATE (test code = 3576) [facility] [id number] 04:03:56 Test Item Value Reference Range Interpretation Comments GLUCOSE (test code = 101 MG/DL 70-99 H 2216) BUN (test code = 10 MG/DL 6-20 2207) CREATININE (test 0.75 MG/DL 0.60-1.30 code = 2214) eGFR (2020 CKD-EPI) 106 >60 (test code = 48694) ML/MIN/1.73 CALC BUN/CREAT (test 13 RATIO 6-28 code = 2235) SODIUM (test code = 141 MEQ/L 671-064 7347) POTASSIUM (test code 4.1 MEQ/L 3.5-5.4 = [...] 329 U/L 5-40 H 2218) HEPATITIS PANEL, [id number] 03:45:56 Test Item Value Reference Range Interpretation Comments HEPATITIS A IgM (test NON-REACTIVE NON-REACTIVE code = 24906) HEPATITIS B CORE IgM NON-REACTIVE NON-REACTIVE (test code = 4644) HEPATITIS B SURF AG NON-REACTIVE NON-REACTIVE (test code = 2739) HEPATITIS C ANTIBODY NON-REACTIVE NON-REACTIVE (test code = 4675) INTERPRETATION (NOTE) Hepatitis A HEPATITIS A: (test serology shows no code = 2552) evidence of acu te hepatitis A. INTERPRETATION (NOTE) Hepatitis B HEPATITIS B: (test serology shows no code = 80513) evidence of ac [place] hepatitis B and no indication of exposure to hepatitis B vir us in the previous si xto eight months. INTERPRETATION (NOTE) Hepatitis C HEPATITIS C: (test serology shows no code = 02414) evidence of ex posure to hepatitisC v irus at this time. I t can take up to 12 m onths after exposure tothe hepatitis C vir us for antibodies to become detectab le in the blood in ce rtain patients. UNLES S OTHERWISE INDIC ATED, ALL TESTING PERFORMED [facility], [place] [address] [facility] [place] [place] [address] DANIELLE LEE DIRECTOR: SUNNY ROWE M.D. PATRICIAIA NUMBER [id number] [place] [id number]
[2023-02-16 00:27] LABS: Absolute Lymphocytes (CBC) 2.1 K/uL (0.7-4.9); Hematocrit 32.5 % (36.0-45.0); Lymphocytes % 24.4 % (15.3-44.8); MCV 107.4 fL (80-100); MPV 6.4 fL (7.6-11.3); Platelets 130 thou/uL (152-406); RBC Red Blood Cell Count 3.02 M/uL (3.86-4.86)
[2023-02-16 00:29] LABS: Specific Gravity < 1.005 (1.005-1.030); Urine Bacteria None Seen /HPF (<20); Urine Bilirubin NEGATIVE (Negative); Urine Blood Trace (Negative); Urine Clarity Clear (Clear); Urine Color Colorless (Yellow); Urine Glucose NEGATIVE (Negative); Urine Protein NEGATIVE (Negative); Urine RBC None Seen /HPF (None Seen); Urine Urobilinogen Normal (Normal)
[2023-02-16 00:31] LABS: Protime INR 1.14
[2023-02-16 00:34] LABS: Specific Gravity < 1.005 (1.005-1.030)
[2023-02-16 00:36] LABS: Barbiturates NEGATIVE (NEGATIVE); Benzodiazepines POSITIVE (NEGATIVE); Cocaine NEGATIVE (NEGATIVE); METHAMPHETAM NEGATIVE (NEGATIVE); Methadone NEGATIVE (NEGATIVE); Opiates NEGATIVE (NEGATIVE); Phencyclidine NEGATIVE (NEGATIVE); THC Cannibis NEGATIVE (NEGATIVE)
[2023-02-16 00:39] LABS: ALT/SGPT 62 U/L (13-56); AST/SGOT 177 U/L (15-37); Albumin 3.6 g/dL (3.4-5.0); Alkaline Phosphatase 138 U/L (45-117); BUN Blood Urea Nitrogen 8 mg/dL (7-18); Bicarbonate 24 mEq/L (21-32); Bilirubin Direct 0.6 mg/dL (0-0.2); Bilirubin Indirect, Calculated 0.5 mg/dL (0.2-0.8); Bilirubin Total 1.1 mg/dL (0.2-1.0); Glomerular Filtration Rate 118 ml/min (=/>90); Glucose Level 99 mg/dL (74-106); Potassium 3.6 mEq/L (3.5-5.1); Protein, Total 8.3 g/dL (6.4-8.2); Sodium Level 143 mEq/L (136-145)
[2023-02-16 01:45] LABS: Blood Morphology Comment NOTED (NOT SEEN); Macrocytosis 1+; Platelet Estimate ADEQ; White Blood Cell Scan OK (OK)
--- NOTE | 2023-02-16 03:07 | EDPHYS ---
Physician Documentation [facility] Name: Sylvia Crzu Age: 37 yrs Sex: Female : 1985 Arrival Date: 02/15/2023 Time: 23:12 Bed 7 Private MD: ED Physician Jarad Fermin HPI: 02/16 04:13 This 37 yrs old Female presents to ER via EMS with complaints of abdominal pain. kdr 04:13 Patient presents to the ED today with abdominal pain. Patient has been drinking kdr significantly (tequila) which is unusual for her. Patient has multiple visits for similar behavior and complaints. The patient is in no acute distress and is otherwise stable in the ED. Onset: The symptoms/episode began/occurred today. Severity of symptoms: At their worst the symptoms were mild in the emergency department the symptoms are unchanged. The patient has experienced similar episodes in the past, chronically. The patient has not recently seen a physician. DIRECTOR EPIDEMIOLOGY: 02/15 23:19 LMP N/A - Depo-provera as6 Historical: - Allergies: 23:17 No Known Allergies; jb4 - PMHx: 23:17 Alcoholism; Depression; Bipolar disorder; Hypertension; cirrhosis of liver; jb4 - PSHx: 23:17 Sternum Reconstruction; jb4 ROS: 02/16 04:13 Constitutional: Negative for fever, chills, and weight loss, Eyes: Negative for injury, kdr pain, redness, and discharge, Neck: Negative for injury, pain, and swelling, Cardiovascular: Negative for chest pain, palpitations, and edema, Respiratory: Negative for shortness of breath, cough, wheezing, and pleuritic chest pain, Back: Negative for injury and pain, : Negative for injury, bleeding, discharge, and swelling, MS/Extremity: Negative for injury and deformity, Skin: Negative for injury, rash, and discoloration, Neuro: Negative for headache, weakness, numbness, tingling, and seizure activity. Psych: Negative for depression, anxiety, suicide ideation, homicidal ideation, and hallucinations, Allergy/Immunology: Negative for hives, rash, and allergies, Endocrine: Negative for neck swelling, polydipsia, polyuria, polyphagia, and marked weight changes, Hematologic/Lymphatic: Negative for swollen nodes, abnormal bleeding, and unusual bruising. Abdomen/GI: Positive for abdominal pain, nausea, Negative for black/tarry stool, rectal pain, rectal bleeding, bowel incontinence. Exam: 04:13 Constitutional: This is a well developed, well nourished patient who is awake, alert, kdr and in no acute distress. Head/Face: Normocephalic, atraumatic. Chest/axilla: Normal chest wall appearance and motion. Nontender with no deformity. No lesions are appreciated. Cardiovascular: Regular rate and rhythm with a normal S1 and S2. No gallops, murmurs, or rubs. Normal PMI, no JVD. No pulse deficits. Respiratory: Lungs have equal breath sounds bilaterally, clear to auscultation and percussion. No rales, rhonchi or wheezes noted. No increased work of breathing, no retractions or nasal flaring. Back: No spinal tenderness. No costovertebral tenderness. Full range of motion. Skin: Warm, dry with normal turgor. Normal color with no rashes, no lesions, and no evidence of cellulitis. MS/ Extremity: Pulses equal, no cyanosis. Neurovascular intact. Full, normal range of motion. Neuro: Awake and alert, GCS 15, oriented to person, place, time, and situation. Cranial nerves II-XII grossly intact. Motor strength 5/5 in all extremities. Sensory grossly intact. Cerebellar exam normal. Normal gait. Psych: Awake, alert, with orientation to person, place and time. Behavior, mood, and affect are within normal limits. 04:13 Abdomen/GI: Inspection: abdomen appears normal, Bowel sounds: active, all quadrants, Palpation: soft, mild abdominal tenderness, in all quadrants. Vital Signs: 02/15 23:15 BP 135 / 97; Pulse 101; Resp 18; Pulse Ox 98% on R/A; Weight 53.07 kg (M); jb4 23:19 Temp 98.8(O); Height 5 ft. 2 in. (R); 02/16 00:30 BP 106 / 82; Pulse 101; Resp 18 S; Pulse Ox 100% on R/A; 01:51 BP 99 / 66; Pulse 109; Resp 16 S; Pulse Ox 95% on R/A; as 03:00 BP 101 / 68; Pulse 95; Resp 16; Pulse Ox 98% on R/A; 4 02/15 23:19 Body Mass Index 21.40 (53.07 kg, 157.48 cm) as6 MDM: 03:06 Patient medically screened. kdr 04:13 Data reviewed: vital signs, nurses notes, lab test result(s). kdr 04:13 ED course: Patient was stable in the ED and as noted from the labs results, her alcohol kdr level was 317 which is about average for her presentations. Patient subsequently became less under the influence of the alcohol and decided that she was going to leave. Patient was stable and nontoxic while in the ED and left happy with the care provided. 02/15 23:47 Order name: Acetaminophen; Complete Time: : kdr 02/15 23:47 Order name: Basic Metabolic Panel; Complete Time: : kdr 02/15 23:47 Order name: CBC with Diff; Complete Time: : kdr 02/15 23:47 Order name: ETOH Level; Complete Time: : kdr 02/15 23:47 Order name: Hepatic Function; Complete Time: : kdr 02/15 23:47 Order name: PT-INR; Complete Time: kdr 02/15 23:47 Order name: Test, Urine; Complete Time: : kdr 02/15 23:47 Order name: Ptt, Activated; Complete Time: : kdr 02/15 23:47 Order name: Salicylate; Complete Time: kdr 02/15 23:47 Order name: Urinalysis w/ reflexes; Complete Time: : kdr 02/15 23:47 Order name: Urine Drug Screen; Complete Time: : kdr 02/16 00:37 Order name: Test Serum, [place]; Complete Time: : EDVT 02/16 00:59 Order name: CBC Smear Scan; Complete Time: 03:05 EDMS 02/15 23:47 Order name: EKG; Complete Time: 23:48 kdr 02/15 23:47 Order name: EKG - Nurse/Tech; Complete Time: 00:05 kdr 02/15 23:47 Order name: IV Saline Lock; Complete Time: 00:05 kdr 02/15 23:47 Order name: Labs collected and sent; Complete Time: 00:05 kdr 02/15 23:47 Order name: Suicide Screening ([place]); Complete Time: 00:05 kdr Administered Medications: No medications were administered Disposition Summary: 02/16/23 03:06 Discharge Ordered Location: Home kdr Problem: new kdr Symptoms: have improved kdr Condition: Stable kdr Diagnosis - Alcohol abuse with intoxication kdr - Alcohol abuse with intoxication, uncomplicated kdr Followup: kdr - With: Private Physician - When: 2 - 3 days - Reason: If symptoms return, Further diagnostic work-up, Recheck today's complaints, Continuance of care, Re-evaluation by your physician Discharge Instructions: - Discharge Summary Sheet kdr - Finding Treatment for Addiction kdr - Alcohol Intoxication kdr - Alcohol Use Disorder kdr - Substance Use Disorder kdr Forms: - Medication Reconciliation Form kdr - Thank You Letter kdr - Patient Portal Instructions kdr - Leadership Thank You Letter kdr Signatures: Dispatcher [employer] EDMS Jarad Fermin MD MD kdr Kaiser Chang RN RN jb4
--- NOTE | 2023-02-16 03:07 | ER ---
Nurse's Notes [facility] Name: Sylvia Cruz Age: 37 yrs Sex: Female : 1985 Arrival Date: 02/15/2023 Time: 23:12 Bed 7 Private MD: Diagnosis: Alcohol abuse with intoxication;Alcohol abuse with intoxication, uncomplicated Presentation: 02/15 23:15 Chief complaint: Patient states: Pt reports lower abdominal pain. Had multiple jb4 alcoholic drinks today. History of Cirrhosis. Coronavirus screen: At this time, the client does not indicate any symptoms associated with coronavirus-19. Ebola Screen: No symptoms or risks identified at this time. Initial Sepsis Screen: Does the patient meet any 2 criteria? No. Patient's initial sepsis screen is negative. Does the patient have a suspected source of infection? Yes: Acute abdominal pain. Risk Assessment: Do you want to hurt yourself or someone else? Patient reports no desire to harm self or others. Onset of symptoms was February 15, 2023. Transition of care: patient was not received from another setting of care. 23:15 Method Of Arrival: EMS: [facility] jb4 23:15 Acuity: BONITA 3 jb4 23:15 Care prior to arrival: Medication(s) given: zofran 4 mg, Ketorolac 15mg IVP. jb4 WARP HAND: 23:19 LMP N/A - Depo-provera as6 Historical: - Allergies: 23:17 No Known Allergies; jb4 - PMHx: 23:17 Alcoholism; Depression; Bipolar disorder; Hypertension; cirrhosis of liver; jb4 - PSHx: 23:17 Sternum Reconstruction; jb4 Screenin:39 [facility] ED Fall Risk Assessment (Adult) History of falling in the last 3 months, jb4 including since admission No falls in past 3 months (0 pts) Confusion or Disorientation No (0 pts) Score/Fall Risk Level 0 - 2 = Low Risk Oriented to surroundings, Maintained a safe environment. Abuse screen: Denies threats or abuse. Nutritional screening: No deficits noted. Tuberculosis screening: No symptoms or risk factors identified. Assessment: 23:39 General: Appears in no apparent distress. uncomfortable, Behavior is calm, cooperative, jb4 appropriate for age. Pain: Complains of pain in right lower quadrant and left lower quadrant Pain does not radiate. Pain currently is 8 out of 10 on a pain scale. Neuro: Level of Consciousness is awake, alert, obeys commands, Oriented to person, place, time, situation. Cardiovascular: Patient's skin is warm and dry. Respiratory: Airway is patent Respiratory effort is even, unlabored, Respiratory pattern is regular, symmetrical. GI: No signs and/or symptoms were reported involving the gastrointestinal system. : No signs and/or symptoms were reported regarding the genitourinary system. EENT: No signs and/or symptoms were reported regarding the EENT system. Derm: Skin is intact, Skin is pink, warm \T\ dry. Musculoskeletal: Circulation, motion, and sensation intact. Range of motion: intact in all extremities. 02/16 00:30 Reassessment: Patient appears in no apparent distress at this time. Patient and/or jb4 family updated on plan of care and expected duration. Pain level reassessed. Patient is alert, oriented x 3, equal unlabored respirations, skin warm/dry/pink. 01:30 Reassessment: Patient appears in no apparent distress at this time. Patient and/or jb4 family updated on plan of care and expected duration. Pain level reassessed. Patient is alert, oriented x 3, equal unlabored respirations, skin warm/dry/pink. 02:30 Reassessment: Patient appears in no apparent distress at this time. Patient and/or jb4 family updated on plan of care and expected duration. Pain level reassessed. Patient is alert, oriented x 3, equal unlabored respirations, skin warm/dry/pink. 03:30 Reassessment: Patient appears in no apparent distress at this time. Patient and/or jb4 family updated on plan of care and expected duration. Pain level reassessed. Patient is alert, oriented x 3, equal unlabored respirations, skin warm/dry/pink. Vital Signs: 02/15 23:15 BP 135 / 97; Pulse 101; Resp 18; Pulse Ox 98% on R/A; Weight 53.07 kg (M); jb4 23:19 Temp 98.8(O); Height 5 ft. 2 in. (R); as6 02/16 00:30 BP 106 / 82; Pulse 101; Resp 18 S; Pulse Ox 100% on R/A; as6 01:51 BP 99 / 66; Pulse 109; Resp 16 S; Pulse Ox 95% on R/A; as6 03:00 BP 101 / 68; Pulse 95; Resp 16; Pulse Ox 98% on R/A; jb4 02/15 23:19 Body Mass Index 21.40 (53.07 kg, 157.48 cm) as6 ED Course: 02/15 23:15 Patient arrived in ED. jb4 23:16 Triage completed. jb4 23:17 Arm band placed on right wrist. jb4 23:19 Jesús Trejo, RN is Primary Nurse. as6 23:20 Jarad Fermin MD is Attending Physician. kdr 23:39 Patient has correct armband on for positive identification. Bed in low position. Call jb4 light in reach. Side rails up X 1. 02/16 00:06 Maintain EMS IV. Dressing intact. Good blood return noted. Site clean \T\ dry. Gauge \T\ as 6 site: 20g L AC. 03:37 No provider procedures requiring assistance completed. IV discontinued, intact, jb4 bleeding controlled, No redness/swelling at site. Pressure dressing applied. Administered Medications: No medications were administered Medication: 02/15 23:39 VIS not applicable for this client. jb4 Outcome: 02/16 03:06 Discharge ordered by . kdr 03:37 Discharged to home ambulatory, with family. jb4 03:37 Condition: stable 03:37 Discharge instructions given to patient, Instructed on discharge instructions, follow up and referral plans. Demonstrated understanding of instructions, follow-up care. 03:37 Patient left the ED. jb4 Signatures: Jarad Fermin MD MD kdr Kaiser Chang RN RN jb4 Jesús Trejo RN RN as6
[2023-02-16 03:54] VITALS: TEMP 98.8
[2023-02-16 03:57] VITALS: BP 101/68; O2SAT 98
--- NOTE | 2023-02-16 13:55 | EKG ---
Test Date: 2023-02-16 Test Time: 00:02:35 Offset Platemaker: GUNNAR MEASUREMENT RESULTS: Intervals: Rate: 88 WI: 142 QRSD: 72 QT: 338 QTc: 408 [place]: P: 70 WI: 142 QRS: 44 T: 80 INTERPRETIVE STATEMENTS: Normal sinus rhythm Nonspecific ST and T wave abnormality Abnormal ECG Compared to ECG 01/30/2023 21:02:36 ST (T wave) deviation now present Prolonged QT interval no longer present Electronically Signed On 02-16-23 13:55:02 CDT by Wilmer Guzman
== END 2023-02-16 03:37 | disposition home or self-care (01) ==
LOC: ER 23:12
DX: F10.229 Alcohol dependence with intoxication, unspecified (principal); R11.0 Nausea; I10 Essential (primary) hypertension
CPT/HCPCS: 36415; 80048; 80076; 80143; 80179; 80307; 81001; 81025; 82077; 84703; 85025; 85610; 85730; 93005; 99283

== ENCOUNTER 2023-03-21 18:20 | Emergency (ER) | payer OTHER, SELFPAY ==
--- OUTSIDE RECORDS SUMMARY | 2023-03-21 18:24 | XMS REPORT | Continuity of Care Document ---
:1985 Author Organization [facility] t Address [address] [facility] [place] [address] Care Team Providers Name Role Phone AWILDA THOMAS Primary Care Physician Unavailable Shannan Silvestre Attending Clinician Unavailable LISSA GOMEZ Attending Clinician Unavailable Sandra BLUM, Marina Alcala Attending Clinician [phone] Doctor Unassigned, [place] Attending Clinician Unavailable Madison Stark RN Attending Clinician Unavailable LUCINA DOCKERY Attending Clinician Unavailable AWILDA THOMAS Attending Clinician Unavailable NASRIN HER Attending Clinician Unavailable Nasrin Her NP Attending Clinician GLENNA CAMARILLO Attending Clinician Unavailable Lucina Dockery CNM Attending Clinician Visit, Ang-Rmchp Nurse Attending Clinician Unavailable William Awilda MASTERSON Attending Clinician [phone] Anna Welch Attending Clinician ANNA AGUERO Attending [...] Univers pain pain 2-09 ity of 00:00: [address] Encounter Encounter Disease Active Uni vers for for 4 [place]y of prescript[place] Medical progestin- progestin- Br anch only only injected injected contracept contracept jacob jacob Irregular Irregular Disease Active Uni vers menses menses 01-31 ity of 00:00: [address] Well woman Well woman Disease Active U nivers exam exam 10-06 ity of 00:00: [address] Mollusca Mollusca Disease Active Unive rs contagiosa contagiosa 10-06 it y of 00:00: [address] Tobacco Tobacco Disease Active Univers use use 407 ity of disorder disorder 00:00: [address] Contracept Contracept Disease Active U nivers jacob jacob 1-07 it[place] of management management [place] [facility] Allergies, Adverse Reactions, Alerts Allergy Allergy Status Severity Reaction(s) Onset Inactive Treating Comm ents Source Name Type Date Date Clinician NO KNOWN Drug Active Univers ALLERGIE Class ity of S [facility] Social History Social Habit Start Date Stop Date Quantity Comments Source History [facility] o f Alcohol Frequency [facility] edical Branch History [facility] University o f Alcohol Std Drinks [facility] History [facility] o f Alcohol Binge [place] [facility] [place] History of tobacco Cigarette Smoker University of use [facility] Gender identity Universit y of [facility] Sexual orientation Univer sity of [facility] Alcohol intake 2022-11-30 2022-11-30 Ex-drinker University 00:00:00 00:00:00 (finding) [facility] Exposure to 2022-09-30 2022-10-10 Not sure [facility] SARS-CoV-2 (event) 00:00:00 12:49:00 [facility] Tobacco use and 2022-10-03 2022-10-03 Smokeless Universit y of exposure 00:00:00 00:00:00 tobacco non-user [facility] dical Branch Cigarettes smoked 2022-10-03 2022-10-03 Univers ity of current (pack per 00:00:00 00:00:00 [facility] ) - Reported Branch Cigarette 2022-10-03 2022-10-03 University of pack-years 00:00:00 00:00:00 [facility] History of Social 2022-07-11 2022-07-11 Univers ity of function 00:00:00 00:00:00 [facility] Tobacco Comment 2022-03-21 2022-03-21 states only Universi ty of 00:00:00 00:00:00 smokes on [facility] Alcohol Comment 2012-10-03 2012-10-03 socially Universit y of 00:00:00 00:00:00 [facility] Sex [birth year] At [birth year] Universit y of 00:00:00 00:00:00 [facility] Smoking Status Start Date Stop Date Source Occasional tobacco 2022-10-03 00:00:00 Universit y of [place] smoker Medical Branch Ex-smoker 2022-03-21 00:00:00 2022-03-21 [place] [facility] [place] [facility] Medications Ordered Filled Start Stop Current Ordering Indication Dosage Frequency Signature Comments Components Source Medication Medication Date Date Medication? Clinician (SIG) Name Name ondansetron No 4mg 4 mg, Univ ers (ZOFRAN-ODT 11-30 Oral, ity of ) 15:00: 15:00 ONCE, 1 [place] disintegrat 00 :00 dose, On Medi jemima ing tablet Kriss 11/30/22 Bra nch 4 mg at 1000, Routine ondansetron Yes [id number] 4mg Take 1 Univers 4 mg - tablet by ity of disintegrat 00:00: mouth [place] ing tablet 00 every 8 Medica l (eight) Branch hours as needed for Nausea and Vomiting (N/V). ondansetron 3-0 Yes [id number] 4mg Take 1 Univers 4 mg 6-01 tablet by ity of disintegrat 00:00: mouth [place] ing tablet 00 every 8 Medica l (eight) Branch hours as needed for Nausea and Vomiting (N/V). ondansetron 3-0 Yes [id number] 4mg Take 1 Univers 4 mg 6-01 tablet by ity of disintegrat 00:00: mouth [place] ing tablet 00 every 8 Medica l (eight) Branch hours as needed for Nausea and Vomiting (N/V). ondansetron 3-0 Yes [id number] 4mg Take 1 Univers 4 mg 6-01 tablet by ity of disintegrat 00:00: mouth [place] ing tablet 00 every 8 Medica l (eight) Branch hours as needed for Nausea and Vomiting (N/V). ondansetron 3-0 Yes [id number] 4mg Take 1 Univers 4 mg 6-01 tablet by ity of disintegrat 00:00: mouth [place] ing tablet 00 every 8 Medica l (eight) Branch hours as needed for Nausea and Vomiting (N/V). cephALEXin 2022-3- No [id number] 250mg Take 1 Univers 250 mg 6- 06-05 capsule by ity of capsule 00:00: 04:59 mouth [place] 00 :00 every 6 Medical (six) Branch hours for 3 days. medroxyPROG 2022-2023- No [id number] 150mg Univers ESTERone 10-03-05 ity of (DEPO-PROVE 20:45: 21:44 [place] ) syringe 00 :00 Medical 150 mg Branch medroxyPROG 2022-0 2023- No [id number] 150mg 150 mg, Univers ESTERone 10-03-05 Intramuscu ity of (DEPO-PROVE 20:45: 21:44 lar, [place] RA) syringe 00 :00 [id number], Med ical 150 mg 4 doses, Branch First dose on Sun10/03/22 at 1545, Last dose on Sun06/12/23 at 1545 medroxyPROG 2022-0 2023- No [id number] 150mg Univers ESTERone 10-03 03-05 ity of (DEPO-PROVE 20:45: 21:44 [place] RA) syringe 00 :00 Medical 150 mg Branch medroxyPROG 2023- No [id number] 150mg 150 mg, Univers ESTERone 10-03 03-05 Intramuscu ity of (DEPO-PROVE 20:45: 21:44 lar, [place] RA) syringe 00 :00 [id number], Med ical 150 mg 4 doses, Branch First dose on Sun10/03/22 at 1545, Last dose on Sun06/12/23 at 1545 medroxyPROG 2022-2023- No [id number] 150mg Univers ESTERone 10-03-05 ity of (DEPO-PROVE 20:45: 21:44 [place] RA) syringe 00 :00 Medical 150 mg Branch medroxyPROG 2022-2023- No [id number] 150mg Univers ESTERone -10 02-05 ity of (DEPO-PROVE 20:45: 21:44 [place] RA) syringe 00 :00 Medical 150 mg Branch medroxyPROG 2022-2023- No [id number] 150mg Univers ESTERone 10-03 03-05 ity of (DEPO-PROVE 20:45: 21:44 [place] RA) syringe 00 :00 Medical 150 mg Branch medroxyPROG 2022-0 2023- No [id number] 150mg Univers ESTERone - 03-05 ity of (DEPO-PROVE 20:45: 21:44 [place] RA) syringe 00 :00 Medical 150 mg Branch medroxyPROG 2022-2023- No [id number] 150mg Univers ESTERone - 03-05 ity of (DEPO-PROVE 20:45: 21:44 [place] RA) syringe 00 :00 Medical 150 mg Branch medroxyPROG 2022-2023- No [id number] 150mg Univers ESTERone - 03-05 ity of (DEPO-PROVE 20:45: 21:44 [place] RA) syringe 00 :00 Medical 150 mg Branch tramadol-ac 2022- No 1{tbl} Take 1 U nivers etaminophen 10-03 tablet by it y of 37.5-325 mg [...] as needed for Pain. medroxyPROG 2022- No [id number] 150mg Univers ESTERone 07-11 ity of (DEPO-PROVE 22:30: 21:42 [place] RA) syringe 00 :00 Medical 150 mg Branch medroxyPROG 2022- No [id number] 150mg 150 mg, Univers ESTERone 07-11 Intramuscu ity of (DEPO-PROVE 22:30: 21:42 lar, ONCE, [place] RA) syringe 00 :00 1 dose, On Me dical 150 mg Tue Branch 07/11/22 at 1630, Routine medroxyPROG 2021- No [id number] 150mg Univers ESTERone 03-21 ity of (DEPO-PROVE 19:45: 18:52 [place] RA) syringe 00 :00 Medical 150 mg Branch medroxyPROG 2021- No [id number] 150mg 150 mg, Univers ESTERone 03-21 Intramuscu ity of (DEPO-PROVE 19:45: 18:52 lar, ONCE, [place] RA) syringe 00 :00 1 dose, On Me dical 150 mg Tue Branch 03/21/22 at 1445, Routine medroxyPROG 2020-07- No [id number] 150mg Univers ESTERone 06-02 ity of (DEPO-PROVE 20:15: 20:14 [place] RA) 00 :00 Medical injection Branch 150 mg medroxyPROG 2020-07- No [id number] 150mg 150 mg, Univers ESTERone 06-02 Intramuscu ity of (DEPO-PROVE 20:15: 20:14 lar, [place] RA) 00 :00 [id number], Medical injection 4 doses, Branch 150 mg First dose on Sun07/01/21 at 1415, Last dose on Sun03/10/22 at 1415, Routine medroxyPROG 2020-07- No [id number] 150mg Univers ESTERone 06-02 ity of (DEPO-PROVE 20:15: 20:14 [place] RA) 00 :00 Medical injection Branch 150 mg medroxyPROG 2020-07- No [id number] 150mg Univers ESTERone 06-02 ity of (DEPO-PROVE 20:15: 20:14 [place] RA) 00 :00 Medical injection Branch 150 mg medroxyPROG 2020-07- No [id number] 150mg 150 mg, Univers ESTERone 06-02 Intramuscu ity of (DEPO-PROVE 20:15: 20:14 lar, [place] RA) 00 :00 [id number], Medical injection 4 doses, Branch 150 mg First dose on Sun07/01/21 at 1415, Last dose on Sun03/10/22 at 1415, Routine medroxyPROG 2020-07- No [id number] 150mg Univers ESTERone 06-02 ity of (DEPO-PROVE 20:15: 20:14 [place] RA) 00 :00 Medical injection Branch 150 mg medroxyPROG 2020-07- No [id number] 150mg 150 mg, Univers ESTERone 06-02 Intramuscu ity of (DEPO-PROVE 20:15: 20:14 lar, [place] RA) 00 :00 [id number], Medical injection 4 doses, Branch 150 mg First dose on Sun07/01/21 at 1415, Last dose on Sun03/10/22 at 1415, Routine medroxyPROG 2020-07- No [id number] 150mg Univers ESTERone 06-02 ity of (DEPO-PROVE 20:15: 20:14 [place] RA) 00 :00 Medical injection Branch 150 mg cephALEXin 2020-07 Yes [id number] 500mg Take 1 Univers (KEFLEX) 2-29 capsule by ity o f 500 mg 00:00: mouth 3 [place] capsule 00 (three) Medical times Branch daily. cephALEXin 2020-07 Yes [id number] 500mg Take 1 Univers (KEFLEX) 2-29 capsule by ity o f 500 mg 00:00: mouth 3 [place] capsule 00 (three) Medical times Branch daily. cephALEXin 2020-07 Yes [id number] 500mg Take 1 Univers (KEFLEX) 2-29 capsule by ity o f 500 mg 00:00: mouth 3 [place] capsule 00 (three) Medical times Branch daily. cephALEXin 2020-07 Yes [id number] 500mg Take 1 Univers (KEFLEX) 2-29 capsule by ity o f 500 mg 00:00: mouth 3 [place] capsule 00 (three) Medical times Branch daily. cephALEXin 2020-07 Yes [id number] 500mg Take 1 Univers (KEFLEX) 2-29 capsule by ity o f 500 mg 00:00: mouth 3 [place] capsule 00 (three) Medical times Branch daily. cephALEXin 2020-07 Yes [id number] 500mg Take 1 Univers (KEFLEX) 2-29 capsule by ity o f 500 mg 00:00: mouth 3 [place] capsule 00 (three) Medical times Branch daily. cephALEXin 2020-07 Yes [id number] 500mg Take 1 Univers (KEFLEX) 2-29 capsule by ity o f 500 mg 00:00: mouth 3 [place] capsule 00 (three) Medical times Branch daily. cephALEXin 2020-07 Yes [id number] 500mg Take 1 Univers (KEFLEX) 2-29 capsule by ity o f 500 mg 00:00: mouth 3 [place] capsule 00 (three) Medical times Branch daily. cephALEXin 2020-07- No [id number] 500mg Take 1 Univers (KEFLEX) 2-29 04-04 capsule by ity of 500 mg 00:00: 00:00 mouth 3 [place] capsule 00 :00 (three) Medical times Branch daily. cephALEXin 2020-07- No [id number] 500mg Take 1 Univers (KEFLEX) 2-29 04-04 capsule by ity of 500 mg 00:00: 00:00 mouth 3 [place] capsule 00 :00 (three) Medical times Branch daily. naproxen Yes [id number] 250mg Take 1 Un evaristo 250 mg 2-09 tablet by ity of tablet 00:00: mouth every 8 Medical (eight) Branch hours as needed for Pain (scale 4-6). Take 500mg followed by 250mg every 6-8 hours naproxen Yes [id number] 250mg Take 1 Un evaristo 250 mg 2-09 tablet by ity of tablet 00:00: mouth every 8 Medical (eight) Branch hours as needed for Pain (scale 4-6). Take 500mg followed by 250mg every 6-8 hours naproxen 2020-0 Yes [id number] 250mg Take 1 Un evaritso 250 mg 2-09 tablet by ity of tablet 00:00: mouth [place] 00 every 8 Medical (eight) Branch hours as needed for Pain (scale 4-6). Take 500mg followed by 250mg every 6-8 hours naproxen 2020-0 Yes [id number] 250mg Take 1 Un evaristo 250 mg 2-09 tablet by ity of tablet 00:00: mouth [place] 00 every 8 Medical (eight) Branch hours as needed for Pain (scale 4-6). Take 500mg followed by 250mg every 6-8 hours naproxen 2020-0 Yes [id number] 250mg Take 1 Un evaristo 250 mg 2-09 tablet by ity of tablet 00:00: mouth [place] 00 every 8 Medical (eight) Branch hours as needed for Pain (scale 4-6). Take 500mg followed by 250mg every 6-8 hours naproxen 2020-0 Yes [id number] 250mg Take 1 Un evaristo 250 mg 2-09 tablet by ity of tablet 00:00: mouth [place] 00 every 8 Medical (eight) Branch hours as needed for Pain (scale 4-6). Take 500mg followed by 250mg every 6-8 hours naproxen 2020-0 Yes [id number] 250mg Take 1 Un evaristo 250 mg 2-09 tablet by ity of tablet 00:00: mouth [place] 00 every 8 Medical (eight) Branch hours as needed for Pain (scale 4-6). Take 500mg followed by 250mg every 6-8 hours naproxen 2020-0 Yes [id number] 250mg Take 1 Un evaristo 250 mg 2-09 tablet by ity of tablet 00:00: mouth [place] 00 every 8 Medical (eight) Branch hours as needed for Pain (scale 4-6). Take 500mg followed by 250mg every 6-8 hours naproxen 0 3- No [id number] 250mg Take 1 U nivers 250 mg 2-09 04-04 tablet by ity of tablet 00:00: 00:00 mouth [place] 00 :00 every 8 Medical (eight) Branch hours as needed for Pain (scale 4-6). Take 500mg followed by 250mg every 6-8 hours naproxen 0 3- No [id number] 250mg Take 1 U nivers 250 mg 2-03 05-04 tablet by ity of tablet 00:00: 00:00 [...] (six) Branch hours as needed for Pain. Vital Signs Vital Name Observation Time Observation Value Comments Source Systolic blood 2022-11-30 13:21:00 142 mm[Hg] Univer sity of pressure [facility] Diastolic blood 2022-11-30 13:21:00 87 mm[Hg] Unive rsity of [facility] Heart rate 2022-11-30 13:21:00 97 /min Universi ty [facility] Body temperature 2022-11-30 13:21:00 37.22 [facility]ushma [facility] 2022-11-30 13:21:00 18 /min [facility] Body height 2022-11-30 13:21:00 157.5 cm Universi ty [facility] Body weight 2022-11-30 13:21:00 51.256 kg Universi ty [facility] BMI 2022-11-30 13:21:00 20.67 kg/m2 Universi ty [facility] Oxygen saturation in 2022-11-30 13:21:00 99 /min [facility] Arterial blood by [facility] Pulse oximetry Branch Systolic blood 2022-10-03 20:28:00 137 mm[Hg] Univer sity of [facility] Diastolic blood 2022-10-03 20:28:00 82 mm[Hg] Unive rsity of [facility] Heart rate 2022-10-03 20:28:00 76 /min Universi ty [facility] Body temperature 2022-10-03 20:28:00 36.28 [facility] Res[facility] rate 2022-10-03 20:28:00 20 /min Univ ersity of [facility] Body height 2022-10-03 20:28:00 154.9 cm Universi ty [facility] Body weight 2022-10-03 20:28:00 54.205 kg Universi ty [facility] BMI 2022-10-03 20:28:00 22.58 kg/m2 Universi ty [facility] Systolic blood 2022-07-11 20:09:00 138 mm[Hg] Univer sity of pressure [place] [facility] Diastolic blood 2022-07-11 20:09:00 88 mm[Hg] Unive rsity of pressure [place] [facility] Heart rate 2022-07-11 20:09:00 94 /min Universi ty of [place] [facility] Body temperature 2022-07-11 20:09:00 36.33 Sushma Univ ersity of [place] [facility] Respiratory rate 2022-07-11 20:09:00 18 /min Univ ersity of [place] [facility] Body weight 2022-07-11 20:09:00 56.79 kg Universi ty of [place] [facility] BMI 2022-07-11 20:09:00 23.66 kg/m2 Universi ty of [place] [facility] Systolic blood 2022-03-21 18:47:00 118 mm[Hg] manual Univer sity of pressure [place] [facility] Diastolic blood 2022-03-21 18:47:00 86 mm[Hg] manual Unive rsity of pressure [place] [facility] Heart rate 2022-03-21 18:45:00 77 /min Universi ty of [place] [facility] Body temperature 2022-03-21 18:45:00 36.11 Sushma Univ ersity of [place] [facility] Respiratory rate 2022-03-21 18:45:00 18 /min Univ ersity of [place] [facility] Body height 2022-03-21 18:45:00 154.9 cm Universi ty of [place] [facility] Body weight 2022-03-21 18:45:00 59.149 kg Universi ty of [place] [facility] BMI 2022-03-21 18:45:00 24.64 kg/m2 Universi ty of [place] [facility] Systolic blood 2021-12-27 18:42:00 134 mm[Hg] Univer sity of pressure [place] [facility] Diastolic blood 2021-12-27 18:42:00 86 mm[Hg] Unive rsity of pressure [place] [facility] Heart rate 2021-12-27 18:42:00 84 /min Universi ty of [place] [facility] Body temperature 2021-12-27 18:42:00 36.33 Sushma Univ ersity of [place] [facility] Respiratory rate 2021-12-27 18:42:00 18 /min Univ ersity of [place] [facility] Body weight 2021-12-27 18:42:00 59.92 kg Universi ty of [place] [facility] BMI 2021-12-27 18:42:00 24.96 kg/m2 Universi ty of [place] [facility] Systolic blood 2021-10-04 18:44:00 128 mm[Hg] Univer sity of pressure [place] [facility] Diastolic blood 2021-10-04 18:44:00 87 mm[Hg] Unive rsity of pressure [place] [facility] Heart rate 2021-10-04 18:44:00 72 /min Universi ty of [place] [facility] Body temperature 2021-10-04 18:44:00 35.83 Sushma Univ ersity of [place] [facility] Respiratory rate 2021-10-04 18:44:00 18 /min Univ ersity of [place] [facility] Body height 2021-10-04 18:44:00 154.9 cm Universi ty of [place] [facility] Body weight 2021-10-04 18:44:00 60.442 kg Universi ty of [place] [facility] BMI 2021-10-04 18:44:00 25.18 kg/m2 Universi ty of [place] [facility] Systolic blood 2021-08-31 18:58:00 111 mm[Hg] Univer sity of pressure [place] [facility] Diastolic blood 2021-08-31 18:58:00 71 mm[Hg] Unive rsity of pressure [place] [facility] Heart rate 2021-08-31 18:58:00 82 /min Universi ty of [place] [facility] Body temperature 2021-08-31 18:58:00 36.17 Sushma Univ ersity of [place] [facility] Respiratory rate 2021-08-31 18:58:00 16 /min Univ ersity of [place] [facility] Body height 2021-08-31 18:58:00 154.9 cm Universi ty of [place] [facility] Body weight 2021-08-31 18:58:00 61.236 kg Universi ty of [place] [facility] BMI 2021-08-31 18:58:00 25.51 kg/m2 Universi ty of [place] [facility] Systolic blood 2021-07-01 19:55:00 129 mm[Hg] Univer sity of pressure [place] [facility] Diastolic blood 2021-07-01 19:55:00 92 mm[Hg] Unive rsity of pressure [place] [facility] Heart rate 2021-07-01 19:34:00 82 /min Universi ty of [place] [facility] Body temperature 2021-07-01 19:34:00 36.17 Sushma [facility] Respiratory rate 2021-07-01 19:34:00 18 /min [facility] Body height 2021-07-01 19:34:00 154.9 cm [facility] Body weight 2021-07-01 19:34:00 60.963 kg [facility] BMI 2021-07-01 19:34:00 25.39 kg/m2 [facility] Procedures Procedure Date / Time Performing Clinician Source Performed REFERRAL- 2023-03-06 05:01:00 Doctor Unassigned, No [facility] REQUEST/RESPONSE [facility] ASSIGNMENT OF BENEFITS 2022-11-30 13:58:12 Doctor Unassigned, No [facility] RAPID STREP SCREEN FOR 2022-11-30 13:51:00 Nasrin Her [facility] POCT TEST 2022-11-30 13:40:00 Nasrin Her [facility] URINALYSIS 2022-11-30 13:38:00 Nasrin Her [facility] RAPID INFLUENZA A/B 2022-11-30 13:38:00 Nasrin Her [facility] COVID-19 (ID NOW RAPID 2022-11-30 13:38:00 Nasrin Her [facility] TESTING) [facility] CONSENT/REFUSAL FOR 2022-11-30 13:11:51 [facility]igned, [facility] US PELVIS COMPLETE WITH 2022-10-17 14:25:42 Lucina Dockery [facility] TRANSVAGINAL [facility] POCT TEST 2022-07-11 20:10:00 Awilda Thomas [facility] ASSIGNMENT OF BENEFITS 2022-07-11 19:44:20 Doctor Unassigned, No [facility] CONSENT/REFUSAL FOR 2022-07-11 19:44:01 Doctor [facility]assigned, No [facility] GARDASIL 9 (HPV 9V) 2022-03-21 18:30:38 Awilda Thomas Uni versity of [facility] POCT TEST 2021-10-04 18:51:00 Awilda Thomas Uni versity [facility] GARDASIL 9 (HPV 9V) 2021-08-31 19:03:43 Anna Aguero [facility] rsity [facility] GARDASIL 9 (HPV 9V) 2021-07-01 20:10:59 [facility] End Encounter Admission Attending Care Care Encounter Source Date/Time Date/Time Type Type Clinicians Facility Department ID 2023-01-09 Outpatient AZUCENA Silvestre [facility] [id number] Common 15:00:00 Shannan [id number] [facility] 2021-05-01 Emergency X [facility] ERT [id number] Univers 16:51:42 ity of [facility] 2021-05-01 Emergency [facility] [id number] Univers 16:50:47 ity of [facility] 2023-03-12 2023-03-12 Outpatient SFA [facility] [id number] Heri 10:31:14 10:31:14 0911 F Ed 2023-03-07 2023-03-07 Telephone ANKUSH Flores [id number] Univers 00:00:00 00:00:00 [facility] [id number] ity of [facility] [id number] [id number] [facility] 071 Branch 2023-03-06 2023-03-06 Outpatient SFA SFA [id number] Heri 10:09:58 10:09:58 0905 F Ed 2023-03-06 2023-03-06 Orders Doctor NAIK [id number] Univers 00:00:00 00:00:00 Only Unassigned, BERKLEY [id number] ity of [place] [facility] 4.2.7.2.686 [place] as [id number] [facility] 009 Branch 2023-03-03 2023-03-03 Nurse HEENA Stark [id number] Univers 00:00:00 00:00:00 Triage Madison GOODEN [id number] it [facility] 4.2.7.2.686 [place] [id number] [facility] 019 Branch 2023-03-02 2023-03-02 Outpatient SFA SFA [id number] Heri 13:01:55 13:01:55 0901 [place] 2023-02-12 2023-02-12 Outpatient R [facility] [id number] Univers 14:00:00 14:00:00 ity [facility] 2023-01-03 2023-01-03 Outpatient SFA [facility] [id number] Heri 10:40:08 10:40:08 0705 [facility] 2022-12-26 2022-12-26 Outpatient [facility] [id number] Univers 13:30:00 13:30:00 AWILDA morsey o [facility] 2022-12-01 2022-12-01 Outpatient SFA [facility] [id number] Heri 14:18:41 14:18:41 0602 [place] 2022-11-30 2022-11-30 Emergency X [facility] ERT [id number] Univers 08:25:00 10:30:00 NASRIN adrian [facility] 2022-11-30 2022-11-30 Emergency [facility] [id number] Univers 08:25:00 10:30:00 Nasrin HUMPHREYS 350.1.13.10 [facility] 4.2.7.2.686 [facility] [id number] [facility] 084 [place] 2022-11-16 2022-11-16 Outpatient SFA SFA [id number] Heri 11:35:18 11:35:18 0518 [facility] 2022-11-14 2022-11-14 Outpatient SFA SFA [id number] Heri 11:01:17 11:01:17 0516 [place] 2022-11-13 2022-11-13 Outpatient HALI CAMARILLO [id number] Florencio Ceron 13:30:00 13:30:00 GLENNA earl 2022-11-13 2022-11-13 Outpatient SFA [facility] [id number] Heri 12:15:58 12:15:58 0515 F Ed 2022-10-17 2022-10-17 Outpatient R SARKIS [facility] [id number] Univers 08:44:41 23:59:00 LUCINA ittimo [facility] 2022-10-17 2022-10-17 [facility] [id number] Univers 08:44:41 23:59:00 Encounter Lucina [facility] [id number] ity [facility] [id number] [id number] [facility] 806 Branch ([facility]) 2022-10-03 2022-10-03 Outpatient R SARKIS [facility] [id number] Univers 15:15:00 16:04:45 LUCINA adrian [facility] 2022-10-03 2022-10-03 [facility] 1.2.840.114 [id number] Univers 15:15:00 16:04:45 Visit Lucina Chacon HOROLOGIST [id number] i ty of [facility] [id number] Anatoliy as MATERNAL [phone] [facility] ical & CHILD [address] [place] [address] 2022-10-03 2022-10-03 Outpatient R WILLIAM [facility] [id number] Univers 13:00:00 13:00:00 AWILDA ward [facility] 2022-07-28 2022-07-28 Outpatient R WILLIAM [facility] [id number] Univers 08:15:00 08:15:00 AWILDA adrian o dave [facility] 2022-07-11 2022-07-11 Outpatient R WILLIAM [facility] [id number] Univers 13:30:00 14:07:31 AWILDA adrian o dave [facility] 2022-07-11 2022-07-11 Nurse Visit, Jarocho-Rmchp Nurse [facility] 1.2 .840.114 [id number] Univers 13:30:00 14:07:31 Visit Akinsipe, Awilda C HOROLOGIST 350.1.13. 10 ity of [facility] [id number] Anatoliy as MATERNAL [phone] [facility] & CHILD [address] [place] [address] 2022-07-11 2022-07-11 Orders Doctor HEENA 1.2.840.114 [id number] Univers 00:00:00 00:00:00 Only Unassigned, BERKLEY 350.1.13.10 ity of [place] [facility] 4.2.7.2.686 Anatoliy as [phone] [address] 2022-07-10 2022-07-10 Telephone William [facility] 1.2.840.114 [id number] Univers 00:00:00 00:00:00 Awilda Mendez HOROLOGIST 350.1.13.10 ity of [facility] 4.2.7.2.686 [place]y as MATERNAL [id number] [facility] & CHILD [address] [place] [address] 2022-07-03 2022-07-03 Out[facility] [id number] Univers 13:30:00 13:30:00 AWILDA acosta [facility] 2022-03-21 2022-03-21 Nurse Visit, Cammie Nurse [facility] 1.2 .840.114 [id number] Univers 13:30:00 13:45:25 Visit Anna Aguero HOROLOGIST 350.1.13.10 ity of [facility] [id number] [place] as MATERNAL [phone] [facility] CHILD [address] [place] [address] 2022-03-21 2022-03-21 Outpatient R LACI [facility] [id number] Univers 13:30:00 13:30:00 ANNA ward f [facility] 2021-12-30 2021-12-30 Outpatient R [facility] [id number] Univers 13:00:00 13:00:00 ity of [facility] 2021-12-27 2021-12-27 Nurse Visit, Cammie Nurse [facility] 1.2 .840.114 [id number] Univers 13:30:00 13:47:23 Visit Anna Aguero HOROLOGIST 350.1.13.10 ity of [facility] 4.2.7.2.686 Anatoliy as MATERNAL [id number] [facility] [address] [place] [address] 2021-12-27 2021-12-27 Outpatient [facility] [id number] Univers 13:30:00 13:30:00 KIMBERLYA miniy o [facility] 2021-11-30 2021-11-30 Outpatient [facility] [id number] Univers 14:30:00 14:30:00 AWILDA ity o [facility] 2021-10-04 2021-10-04 Nurse Visit, Meghnachp Nurse [facility] 1.2 .840.114 [id number] Univers 13:30:00 13:57:52 Visit Anna Aguero HOROLOGIST 350.1.13.10 ity of [facility] 4.2.7.2.686 Anatoliy as MATERNAL [phone] [facility] ical & CHILD [address] [place] [address] 2021-10-04 2021-10-04 [address] [facility] [facility] [id number] Univers 13:30:00 13:30:00 KIMBERLYA miniy o [facility] 2021-09-23 2021-09-23 Outpatient R [facility] [id number] Univers 13:00:00 13:00:00 [facility] 2021-09-23 2021-09-[address] [facility] [address] [id number] Univers 13:00:00 13:00:00 KIMBERLYA miniy o [facility] 2021-08-31 2021-08-31 Outpatient R [facility] [id number] Univers 13:30:00 13:30:00 [facility] 2021-08-31 2021-08-31 [address] [facility] [facility] [id number] Univers 13:30:00 13:30:00 KIMBERLYA miniy o [facility] 2021-08-31 2021-08-31 Nurse Visit, Meghnachp Nurse [facility] 1.2 .840.114 [id number] Univers 13:30:00 13:30:00 Visit Anna Aguero Anne HOROLOGIST 350.1.13.10 ity [facility] [id number] Anatoliy as MATERNAL [phone] [facility] CHILD [address] [place] [address] 2021-07-01 2021-07-01 Outpatient R WILLIAM, [facility] [id number] Univers 13:15:00 14:10:58 AWILDA ward [facility] 2021-07-01 2021-07-01 Office [facility] 1.2.051.410 [id number] Univers 13:15:00 14:10:58 Visit Awilda Andrea HOROLOGIST 350.1.13.10 ity [facility] [id number] [place]oliy as MATERNAL [phone] [facility] & [address] 2021-07-01 2021-07-01 Outpatient [facility] [id number] Univers 09:00:00 09:00:00 AWILDA acosta [facility] 2021-07-01 2021-07-01 Outpatient [facility] [id number] Univers 09:00:00 09:00:00 AWILDA acosta [facility] 2021-06-29 2021-06-29 Outpatient R ELISEO [facility] [id number] Univers 13:00:00 13:00:00 MENDY minitimo [facility] 2021-06-29 2021-06-29 Outpatient R ELISEO [facility] [id number] Univers 13:00:00 13:00:00 MENDY minitimo [facility] 2021-06-28 2021-06-29 Emergency [facility] E[facility] [id number] Univers 23:27:00 04:47:00 MARY adrian [facility] 2021-06-28 2021-06-29 Emergency [facility] [id number] [id number] Univers 23:27:00 04:47:00 Mary COBB 350.1.13.10 i ty [facility] 4.2.7.2.686 [place] [id number] [address] 2021-06-28 2021-06-29 Emergency X NURA [facility] ERT [id number] Univers 23:27:00 04:47:00 MARY adrian [facility] 2021-05-10 2021-05-10 Outpatient [facility] [id number] Univers 13:30:00 13:30:00 MENDY adrian [facility] 2021-04-15 2021-04-15 Emergency Wilkes, [facility] 1.2.840.114 [id number] Univers 19:01:00 23:04:00 [facility] 350.1.13.10 i ty [facility] 4.2.7.2.686 [facility] [id number] [address] 2021-04-15 2021-04-15 Emergency X CHUNG, [facility] ERT [id number] Univers 19:01:00 23:04:00 BROOKLYN adrian [facility] 2021-04-06 2021-04-06 [facility] 1.2 .840.114 [id number] Univers 13:20:16 13:45:56 Visit Anna Aguero HOROLOGIST 350.1.13.10 ity of [facility] 4.2.7.2.686 Anatoliy as MATERNAL [phone] Med ical & CHILD [address] [place] [address] 2021-04-06 2021-04-06 [address] [facility] [facility] [id number] Univers 13:30:00 13:30:00 ANNA adrian o f [facility] 2021-01-13 2021-01-13 Outpatient R [facility] [id number] Univers 13:30:00 13:30:[facility] 2021-01-12 2021-01-12 Nurse [facility] 1.2 .840.114 [id number] Univers 12:58:10 13:14:44 Visit Awilda Thomas HOROLOGIST 350.1.13. 10 ity of [facility] 4.2.7.2.686 Anatoliy as MATERNAL [phone] [facility] ical & CHILD [address] [place] [address] 2021-01-12 2021-01-12 Outpatient R [facility] [id number] Univers 13:00:00 13:00:00 ity of [facility] 2021-01-12 2021-01-12 Outpatient R WILLIAM, [facility] [id number] Univers 13:00:00 13:00:00 AWILDA adrian o dave [facility] 2020-11-01 2020-11-01 Emergency Schoenstein [facility] 1.2.840.114 [id number] 22:05:00 22:06:00 , [facility] 350.1.13.10 4.2.7.2.686 [id number] [id number] 2020-11-01 2020-11-01 Emergency Scho[facility] 1.2.840.114 [id number] Univers 22:05:00 22:06:00 , [facility] 350.1.13.10 it [place] [id number] [facility] [address] 2020-11-01 2020-11-01 Emergency [facility] 1.2.840.114 [id number] 17:05:00 20:46:00 Ayana [place] 350.1.13.10 [place] 4.2.7.2.686 [place] [id number] [facility] 2020-11-01 2020-11-01 Emergency [facility] 1.2.840.114 [id number] Univers 17:05:00 20:46:00 Ayana [place] 350.1.13.10 i ty of [place].2.[place] [id number] [address] 2020-11-01 2020-11-01 [facility] 1.2.840.114 [id number] 13:58:16 14:28:58 Visit Anna Rodríguez HOROLOGIST 350.1.13.10 [facility] 4.2.7.2.686 MATERNAL [phone] & CHILD [address] [place] [address] 2020-11-01 2020-11-01 Office Laci [facility] 1.2.840.114 [id number] [facility] 13:58:16 14:28:58 Visit Anna Rodríguez HOROLOGIST 350.1.13.10 ity [facility] 4.2.7.2.686 [place]atoliy as MATERNAL [id number] [facility] CHILD [address] [place] [address] 2020-11-01 2020-11-01 Outpatient R LACI [facility] [id number] Univers 14:00:00 14:00:00 ANNA ward dave [facility] 2020-10-21 2020-10-21 Nurse Visit, Meghnajayson Nurse [facility] 1.2 .840.114 [id number] Univers 14:54:52 15:08:41 Visit Anna Aguero R HOROLOGIST 350.1.13.10 ity of [facility] 4.2.7.2.686 [place] as MATERNAL [phone] [address] 2020-10-21 2020-10-21 Outpatient R [facility] [id number] Univers 14:30:00 14:30:00 ity [facility] 2020-08-13 2020-08-13 Telephone [facility] 1.2.840.114 [id number] Univers 00:00:00 00:00:00 Awilda Mendez HOROLOGIST 350.1.13.10 ity of [facility] 4.2.7.2.686 [place]y as MATERNAL [id number] [address] 2020-08-10 2020-08-10 Outpatient [facility] [id number] Univers 13:45:00 13:45:00 AWILDA acosta [facility] 2020-07-29 2020-07-29 Nurse Visit, Cammie Nurse [facility] 1.2 .840.114 [id number] Univers 14:20:34 14:34:34 Visit Anna Aguero Anne HOROLOGIST 350.1.13.10 ity [facility] 4.2.7.2.686 [place]y as MATERNAL [id number] [facility] & CHILD [address] [place] [address] 2020-07-29 2020-07-29 Outpatient R [facility] [id number] Univers 14:30:00 14:30:00 ity of [facility] 2020-05-06 2020-05-06 Office Eliseo [facility] 1.2.591.806 [id number] Univers 15:32:18 16:10:31 Visit Mendy Jesus HOROLOGIST 350.1.13.10 it y [address]7.2.686 [place]y as MATERNAL [phone] Med ical & CHILD [address] [place] [address] 2020-05-06 2020-05-06 Outpatient R ELISEO [facility] [id number] Univers 15:30:00 15:30:00 MENDY ittimo [facility] 2020-05-06 2020-05-06 Orders Doctor HEENA 1.2.840.114 [id number] Univers 00:00:00 00:00:00 Only Unassigned, BERKLEY 350.1.13.10 [address]7.2.686 Anatoliy as [id number] [address] 2020-02-11 2020-02-11 Outpatient R [facility] [id number] Univers 13:30:00 13:30:00 ity [facility] 2019-11-19 2019-11-19 Nurse Visit, Meghnajayson Nurse [facility] 1.2 .840.114 [id number] Univers 13:54:25 14:01:32 Visit Anna Aguero HOROLOGIST 350.1.13.[address]7.2.686 [place]y as MATERNAL [phone] [facility] CHILD [address] [place] [address] 2019-11-19 2019-11-19 Outpatient R [facility] [id number] Univers 13:30:00 13:30:00 ity [facility] 2019-08-27 2019-08-27 [facility] 1.2 .840.114 [id number] Univers 13:46:00 14:04:52 Visit Anna Aguero HOROLOGIST 350.1.13.[address]2.686 Anat[place]y as MATERNAL [phone] [facility] CHILD [address] [place] [address] 2019-08-27 2019-08-27 Out[address] [facility] [id number] Univers 13:30:00 13:30:00 ANNA adrian o f [facility] 2019-03-11 2019-03-11 Office Eliseo [facility] 1.2.618.768 [id number] Univers 14:03:33 14:50:27 Visit Mendy Jesus HOROLOGIST 350.1.13.10 it y of [facility] 4.2.7.2.686 Anat[place]y as MATERNAL [id number] Med ical & CHILD [address] [place] [address] 2019-03-11 2019-03-11 Orders Doctor HEENA 1.2.840.114 [id number] Univers 00:00:00 00:00:00 Only Unassigned, BERKLEY 350.1.13.10 ity of [place] [facility] 4.2.7.2.686 Anat[place]y as [phone] [address] Results Test Description Test Time Test Comments Results Result Comments Source VITAMIN D, 25 [place] 2023-03-13 05:32:08 Test Item Value Reference Range Interpretation Comme nts VITAMIN D, 25 OH (test 56 NG/ML SEE BELOW E FFECTIVE 07/10/2022, PLEASE NOTE code = 4958) NEW METHODOLOGY IS ELECTROCHEMILUM INESCENCE BINDING ASSAY. NOTE: 25-HYDROX YVITAMIN D ASSAY INCLUDES 25-HYDROXYVITAM IN D2 AND D3. INTERPRETIVE RA NGES PEDIATRIC (<17 YEARS) . . . . . . . . . . . NG/ML 20-100ADULT: IN SUFFICIENT . . . . . . . . . . . . . . N G/ML <20 SUBOPTIMAL . . . . . . . . . . . . . . . NG/ML 20-29 OPTIMAL . . . . . . . . . . . . . . . . . NG/ML 30-100 TSH, THIRD [id number] 05:31:07 Test Item Value Reference Range Interpretation Comments TSH, THIRD GENERATION (test code 0.891 UIU/ML 0.400-4.100 = 2821) COMPREHENSIVE METABOLIC [id number] 03:24:25 Test Item Value Reference Range Interpretation Comments GLUCOSE (test code = 96 MG/DL 70-99 2216) BUN (test code = 5 MG/DL 6-20 L 2207) CREATININE (test 0.47 MG/DL 0.60-1.30 L code = 221) eGFR (2020 CKD-EPI) 126 >60 (test code = 24001) ML/MIN/1.73 CALC BUN/CREAT (test 11 RATIO 6-28 code = 2235) SODIUM (test code = 143 MEQ/L 853-727 2135) POTASSIUM (test code 4.1 MEQ/L 3.5-5.4 = 2227) CHLORIDE (test code 107 MEQ/L 95-107 = 2214) CARBON DIOXIDE (test 21 MEQ/L 19-31 code = 220) CALCIUM (test code = 9.2 MG/DL 8.5-10.5 2208) PROTEIN, TOTAL (test 8.4 G/DL 6.1-8.3 H code = 2228) ALBUMIN (test code = 4.8 G/DL 3.5-5.2 2200) CALC GLOBULIN (test 3.6 G/DL 1.9-3.7 code = 224) CALC A/G RATIO (test 1.3 RATIO 1.0-2.6 code = 223) BILIRUBIN, TOTAL 1.6 MG/DL See_Comment H [Automated message] (test code = 220) The syste m which generated this result transmit meghan reference range : <=1.2. The refe rence range was not u sed to interpret th is result as normal/abnormal . ALKALINE PHOSPHATASE 117 U/L 40-112 H (test code = 2204) AST (test code = 101 U/L 9-40 H 2217) ALT (test code = 31 U/L 5-40 2218) LIPID [id number] 03:24:25 Test Item Value Reference Range Interpretation Comments CHOLESTEROL (test 213 MG/DL <200 H code = 2210) TRIGLYCERIDES (test 76 MG/DL <150 code = 2232) HDL CHOLESTEROL (test 65 MG/DL >39 code = 2220) CALC LDL CHOL (test 131 MG/DL <100 H NOTE: C ALCULATED LDL code = 2237) IS BASED ON MILLY-BOGGS METHOD WHICHINCLUDES ADJUSTABLE TRIGLYCERIDE:VL DL CHOLESTEROL RAT IO.THIS FACTOR VARIES B Y MEASURED TRIGLY CERIDE AND NON-HDLCHOL ESTEROL CONCENTRATIONS WITH INCREASED CALCU LATED LDL SEENIN HIGH ER TRIGLYCERIDE OR LOWER NON-HDL SPECIME NS. FOR MOREINFORMATION , SEE CLIENT ANNOUNCE MENT AT [email or web address] RISK RATIO LDL/HDL 2.02 RATIO <3.22 UNLESS O THERWISE (test code = 2238) INDICATED , ALL TESTING PERFORMED AT [facility] [place]. [address] [facility] [place] [address] DANIELLE ROMERO DIRECTOR: Pricila WALKER SANDY NUMBER [id number] CAP ACCREDITATION N O. [id number] CBC W/AUTO DIFF WITH [id number] 02:35:39 Test Item Value Reference Range Interpretation Comments WBC (test code = 6.6 K/UL 3.5-11.0 1001) RBC (test code = 3.49 M/UL 3.80-5.40 L 1002) HEMOGLOBIN (test code 12.5 G/DL 11.5-15.5 = 1003) HEMATOCRIT (test code 35.4 % 34.0-45.0 = 1004) MCV (test code = 101.4 fL 80.0-99.0 H 1005) MCH (test code = 35.8 PG 25.0-33.0 H 1006) MCHC (test code = 35.3 G/DL 31.0-36.0 1007) RDW (test code = 11.9 % 11.5-15.0 1038) NEUTROPHILS (test 54.6 % code = 1008) LYMPHOCYTES (test 29.3 % code = 1010) MONOCYTES (test code 11.6 % = 1011) EOSINOPHILS (test 3.4 % code = 1012) BASOPHILS (test code 0.8 % = 1013) IMMATURE GRANULOCYTES 0.3 % (test code = 1036) NUCLEATED RBCS (test 0.0 /100 WBC'S See_Comment [Aut omated code = 1065) message] The sy stem which generated this result transmitted reference range : 0.0. The refere nce range was not u sed to interpret th is result as normal/abnormal . PLATELET COUNT (test 77 K/UL 130-400 L code = 1015) ABSOLUTE NEUTROPHILS 3.58 K/UL 1.50-7.50 (test code = 1066) ABSOLUTE LYMPHOCYTES 1.92 K/UL 1.00-4.00 (test code = 1067) ABSOLUTE MONOCYTES 0.76 K/UL 0.20-1.00 (test code = 1068) ABSOLUTE EOSINOPHILS 0.22 K/UL 0.00-0.50 (test code = 1040) ABSOLUTE BASOPHILS 0.05 K/UL 0.00-0.20 (test code = 1069) ABS IMMATURE 0.02 K/UL 0.00-0.10 GRANULOCYTES (test code = 1020) ABS NUCLEATED RBCS 0.00 K/UL 0.00-0.11 (test code = 78348) POCT [id number] 13:40:00 Test Item Value Reference Range Interpretation Comments POCT PREG (test code = 1605) Negative On board controls acceptable Yes with C Line (test code = 3574) POCT PREG LOT # (test code = [id number] 3575) POCT PREG TEST DATE 04/05/2024 (test code = 3576) Lab Interpretation (test code = Normal 34749-9) [facility] [id number] 20:10:00 Test Item Value Reference Range Interpretation Comments POCT PREG (test code = 1605) Negative On board controls acceptable with C Yes Line (test code = 3574) POCT PREG LOT # (test code = 3575) POCT PREG TEST DATE (test code = 3576) [facility] [id number] 18:51:00 Test Item Value Reference Range Interpretation Comments POCT PREG (test code = 1605) Negative On board controls acceptable with C Yes Line (test code = 3574) POCT PREG LOT # (test code = 3575) POCT PREG TEST DATE (test code = 3576) [facility] [id number] 04:03:56 Test Item Value Reference Range Interpretation Comments GLUCOSE (test code = 101 MG/DL 70-99 H 2216) BUN (test code = 10 MG/DL 12-19) CREATININE (test 0.75 MG/DL 0.60-1.30 code = 2214) eGFR (2020 CKD-EPI) 106 >60 (test code = 09230) ML/MIN/1.73 CALC BUN/CREAT (test 13 RATIO - code = 2235) SODIUM (test code = 141 MEQ/L 983-939 6740) POTASSIUM (test code 4.1 MEQ/L 3.5-5.4 = [...] 329 U/L 5-40 H 2218) HEPATITIS PANEL, [id number] 03:45:56 Test Item Value Reference Range Interpretation Comments HEPATITIS A IgM (test NON-REACTIVE NON-REACTIVE code = 43620) HEPATITIS B CORE IgM NON-REACTIVE NON-REACTIVE (test code = 4644) HEPATITIS B SURF AG NON-REACTIVE NON-REACTIVE (test code = 2739) HEPATITIS C ANTIBODY NON-REACTIVE NON-REACTIVE (test code = 4675) INTERPRETATION (NOTE) Hepatitis A HEPATITIS A: (test serology shows no code = 2552) evidence of acu te hepatitis A. INTERPRETATION (NOTE) Hepatitis B HEPATITIS B: (test serology shows no code = 74286) evidence of ac andrés hepatitis B and no indication of exposure to hepatitis B vir us in the previous si xto eight months. INTERPRETATION (NOTE) Hepatitis C HEPATITIS C: (test serology shows no code = 92473) evidence of ex posure to hepatitisC v irus at this time. I t can take up to 12 m onths after exposure tothe hepatitis C vir us for antibodies to become detectab le in the blood in ce rtain patients. UNLES S OTHERWISE INDIC ATED, ALL TESTING PERFORMED [facility]. [address] [place] [address] [facility] N[facility] DIRECTOR: Pricila SHAIKH NUMBER [id number] [facility] [place] [id number]
[2023-03-21] MEDS ORDERED: LORazepam 2 MG/ML VIAL ONE (19:28)
--- NOTE | 2023-03-21 19:28 | RAD REPORT ---
EXAM DESCRIPTION: RADChest Single View03/21/2023 7:13 pm CLINICAL HISTORY: CHEST PAIN COMPARISON: Chest Single View dated 08/25/2022; Chest Single View dated 12/03/2021; Chest Single View d ated 09/26/2021; Chest Pa And Lat (2 Views) dated 06/08/2021 TECHNIQUE: Portable AP view of the chest. FINDINGS: Central fluffy perihilar opacities with interstitial prominence. No focal consolidation. No pneumothorax or effusion. The cardiomediastinal contours are unremarkable. IMPRESSION: Findings suggestive of early pulmonary edema.
[2023-03-21] MEDS ORDERED: ONDANSETRON 4 MG/2 ML VIAL ONE (19:30)
[2023-03-21] MEDS ORDERED: NA CHLORIDE 0.9% 1,000 ML ONE (19:30)
[2023-03-21] MEDS ORDERED: FAMOTIDINE 20 MG/2 ML VIAL IV ONE (19:30)
[2023-03-21 20:24] LABS: Absolute Lymphocytes (CBC) 2.4 K/uL (0.7-4.9); Hematocrit 35.1 % (36.0-45.0); Lymphocytes % 28.6 % (15.3-44.8); MCV 106.3 fL (80-100); MPV 6.9 fL (7.6-11.3); Platelets 85 thou/uL (152-406); RBC Red Blood Cell Count 3.31 M/uL (3.86-4.86)
[2023-03-21 20:25] LABS: Blood Morphology Comment NOTED (NOT SEEN); Macrocytosis 1+; Platelet Estimate DECR; Platelets, Giant PRESENT; White Blood Cell Scan OK (OK)
[2023-03-21 20:30] LABS: Transitional Epithelial <5 /HPF (None Seen); Urine Bacteria <20 /HPF (<20); Urine Bilirubin NEGATIVE (Negative); Urine Blood 2+ (Negative); Urine Clarity Turbid (Clear); Urine Color Light-Yellow (Yellow); Urine Glucose NEGATIVE (Negative); Urine Mucus Slight /HPF (None Seen); Urine Protein NEGATIVE (Negative); Urine RBC 21-50 /HPF (None Seen); Urine Urobilinogen Normal (Normal); Urine pH 5.5 (5.0-7.0)
[2023-03-21 20:34] LABS: Protime INR 1.08
[2023-03-21 20:59] LABS: ALT/SGPT 46 U/L (13-56); AST/SGOT 156 U/L (15-37); Albumin 3.9 g/dL (3.4-5.0); Alkaline Phosphatase 117 U/L (45-117); BUN Blood Urea Nitrogen 5 mg/dL (7-18); Bicarbonate 25 mEq/L (21-32); Bilirubin Total 1.3 mg/dL (0.2-1.0); Glomerular Filtration Rate 125 ml/min (=/>90); Glucose Level 111 mg/dL (74-106); Lipase 78 U/L (13-75); Potassium 3.7 mEq/L (3.5-5.1); Protein, Total 8.5 g/dL (6.4-8.2); Sodium Level 138 mEq/L (136-145); Troponin High Sensitivity 5.9 pg/mL (<58.9)
[2023-03-21 20:59] LABS: Barbiturates NEGATIVE (NEGATIVE); Benzodiazepines POSITIVE (NEGATIVE); Cocaine NEGATIVE (NEGATIVE); METHAMPHETAM NEGATIVE (NEGATIVE); Methadone NEGATIVE (NEGATIVE); Opiates NEGATIVE (NEGATIVE); Phencyclidine NEGATIVE (NEGATIVE); THC Cannibis NEGATIVE (NEGATIVE)
--- NOTE | 2023-03-21 21:00 | RAD REPORT ---
EXAM DESCRIPTION: US - Abdomen Exam Limited - 03/21/2023 8:22 pm CLINICAL HISTORY: ABD PAIN COMPARISON: Abdomen Pelvis W Contrast dated 08/25/2022 TECHNIQUE: Sonographic grayscale and color flow images of the right upper abdominal quadrant were obtained. FINDINGS: The gallbladder demonstrates no gallstones. No pericholecystic fluid or gallbladder wall t hickening. The common bile duct is normal measuring 4 mm. The liver demonstrates no findings of intrahepatic biliary dilatation. IMPRESSION: No sonographic abnormalities of the gallbladder or biliary ducts.
--- NOTE | 2023-03-21 21:23 | EDPHYS ---
Physician Documentation [facility] Name: Sylvia Cruz Age: 37 yrs Sex: Female : 1985 Arrival Date: 03/21/2023 Time: 18:20 Bed 19 Private MD: ED Physician Vj Velasquez HPI: 03/21 23:33 This 37 yrs old Female presents to ER via Ambulatory with complaints of Chest Pain, kb Anxiety, General Weakness, Dizziness. 23:33 Pt reports she hasn't felt good since she woke up this morning. Reports chest pain, kb nausea, weakness and shakiness. States she has cirrhosis due to alcoholism, but has not been able to stop drinking. . Onset: The symptoms/episode began/occurred this morning. Severity of symptoms: At their worst the symptoms were mild moderate in the emergency department the symptoms are unchanged. The patient has experienced similar episodes in the past, a few times. The patient has not recently seen a physician. Historical: - Allergies: 18:30 No Known Allergies; ph - PMHx: 18:30 Alcoholism; Bipolar disorder; cirrhosis of liver; Depression; Hypertension; ph - PSHx: 18:30 Sternum Reconstruction; ph - Immunization history:: Adult Immunizations unknown. - Social history:: Smoking status: unknown. ROS: 23:30 Constitutional: Negative for fever, chills, and weight loss, kb 23:30 Cardiovascular: Positive for chest pain, 23:30 Neuro: Positive for weakness, 23:30 All other systems are negative, 23:30 Constitutional: Positive for malaise, kb 23:30 Abdomen/GI: Positive for nausea, Negative for abdominal pain, vomiting, diarrhea, Exam: 21:30 ECG was reviewed by the Attending Physician. kb 23:30 Constitutional: This is a well developed, well nourished patient who is awake, alert, kb and in no acute distress. Head/Face: Normocephalic, atraumatic. ENT: Moist Mucous membranes Cardiovascular: Regular rate Respiratory: Respirations even and unlabored. No increased work of breathing. Talking in full sentences Abdomen/GI: Soft, non-tender. No distention Skin: Warm, dry with normal turgor. Normal color. MS/ Extremity: Pulses equal, no cyanosis. Neurovascular intact. Full, normal range of motion. Neuro: Awake and alert, GCS 15, oriented to person, place, time, and situation. Moves all extremities. Normal gait. 23:30 Constitutional: The patient appears anxious, Vital Signs: 18:28 BP 143 / 102; Pulse 109; Resp 18; Temp 98.1; Pulse Ox 99% on R/A; Weight 48.99 kg; ph Height 5 ft. 1 in. ; 20:00 BP 127 / 87; Pulse 94; Resp 18; Pulse Ox 100% on R/A; eh3 20:30 BP 122 / 85; Pulse 91; Resp 20; Pulse Ox 100% on R/A; ha1 21:00 BP 104 / 67; Pulse 94; Resp 20; Pulse Ox 99% on R/A; ha1 18:28 Body Mass Index 20.41 (48.99 kg, 154.94 cm) ph MDM: 18:30 Patient medically screened. kb 23:28 Differential diagnosis: alcohol intoxication, MT, abnormal EKG, anxiety, GERD, kb dehydration. Data reviewed: vital signs, nurses notes. Consideration of Admission/Observation Escalation of care including admission/observation considered. admission considered, but pt reports all symptoms resolved after ativan, pt has history of cirrhosis. Pt in agreement with outpatient treatment. Significant other at bedside and also in agreement with outpatient care. . Counseling: I had a detailed discussion with the patient and/or guardian regarding the historical points, exam findings, and any diagnostic results supporting the discharge/admit diagnosis, lab results, radiology results, the need for outpatient follow up, a family practitioner, to return to the emergency department if symptoms worsen or persist or if there are any questions or concerns that arise at home. 03/21 18:31 Order name: CBC with Diff; Complete Time: 20:28 kb 03/21 18:31 Order name: CMP; Complete Time: 21:13 kb 03/21 18:31 Order name: Lipase; Complete Time: 21:13 kb 03/21 18:31 Order name: Urinalysis w/ reflexes; Complete Time: 20:33 kb 03/21 18:31 Order name: Troponin High Sensitivity; Complete Time: 21:13 kb 03/21 18:31 Order name: ETOH Level; Complete Time: 20:53 kb 03/21 18:32 Order name: Acetaminophen; Complete Time: 21:13 kb 03/21 18:32 Order name: PT-INR; Complete Time: 20:53 kb 03/21 18:32 Order name: Ptt, Activated; Complete Time: 20:53 kb 03/21 18:32 Order name: Salicylate; Complete Time: 21:25 kb 03/21 18:32 Order name: Urine Drug Screen; Complete Time: 21:04 kb 03/21 18:32 Order name: Test, Urine; Complete Time: 20:33 kb 03/21 20:25 Order name: CBC Smear Scan; Complete Time: 20:28 EDMS 03/21 18:31 Order name: Abdomen Limited US; Complete Time: 21:04 kb 03/21 18:31 Order name: Chest Single View XRAY; Complete Time: 19:34 kb 03/21 18:31 Order name: EKG; Complete Time: 18:32 kb 03/21 18:31 Order name: IV Saline Lock; Complete Time: 20:13 kb 03/21 18:31 Order name: Labs collected and sent; Complete Time: 20:13 kb 20 18:31 Order name: EKG - Nurse/Tech; Complete Time: 20:13 kb EC:30 Rate is 100 beats/min. Rhythm is regular. QRS [place] is Normal. TN interval is normal at kb 138 msec. QRS interval is normal at 72 msec. QT interval is normal at 459 msec. Administered Medications: 19:58 Drug: NS 0.9% IV 1000 ml IV at 1 bolus Per protocol; 1000 mL bolus Route: IV; Rate: 1 eh3 bolus; Site: left antecubital; 21:00 Follow up: IV Status: Completed infusion; IV Intake: 1000ml ha1 19:58 Drug: Famotidine IVP 20 mg IVP once; dilute with 10 mL 0.9% NaCl; give over 2 minutes eh3 Route: IVP; Site: left antecubital; 20:30 Follow up: Response: No adverse reaction ha1 19:58 Drug: Ondansetron IVP 4 mg IVP once; over 2 minutes Route: IVP; Site: left antecubital; eh3 20:30 Follow up: Response: No adverse reaction ha1 19:58 Drug: Ativan IVP 1 mg IVP once Route: IVP; Site: left antecubital; eh3 20:30 Follow up: Response: No adverse reaction; Pain is decreased; Anxiety decreased ha1 Disposition: 21:48 Co-signature as Attending Physician, Vj Velasquez MD I reviewed the patient's care rt provided by the Advanced Practice Provider and agree with the diagnosis and treatment plan. Disposition Summary: 03/21/23 21:23 Discharge Ordered Notes: Location: Home kb Condition: Stable kb Diagnosis - Alcohol abuse with intoxication kb - Chest pain, unspecified kb - Anxiety disorder, unspecified kb Followup: kb - With: Emergency Department - When: As needed - Reason: Worsening of condition Followup: kb - With: Private Physician - When: 2 - 3 days - Reason: Recheck today's complaints, Continuance of care, Re-evaluation by your physician Discharge Instructions: - Discharge Summary Sheet kb - Alcohol Intoxication, [id number] kb - Nonspecific Chest Pain, Adult, [id number] kb - Panic Attack, [id number] kb - Generalized Anxiety Disorder, Adult kb Forms: - Medication Reconciliation Form kb - Thank You Letter kb - Antibiotic Education kb - Prescription Opioid Use kb - Patient Portal Instructions kb - Leadership Thank You Letter kb Signatures: Dispatcher [employer] EDRika Chery, SALESPERSON WOMEN'S DRESSES-C SALESPERSON WOMEN'S DRESSES-Whitney Candelario, RN RN Airam Rick RN RN 3 Kallie Bertrand, RN RN ha1 Vj Velasquez MD MD rt
--- NOTE | 2023-03-21 21:23 | ER ---
Nurse's Notes [facility] Name: Sylvia Cruz Age: 37 yrs Sex: Female : 1985 Arrival Date: 03/21/2023 Time: 18:20 Bed 19 Private MD: Diagnosis: Alcohol abuse with intoxication;Chest pain, unspecified;Anxiety disorder, unspecified Presentation: 03/21 18:28 Chief complaint: Patient states: [place] bad when she woke up this morning, mid-sternal ph chest pain that started approx 2 hours ago, states that she has a hx of alcoholic liver cirrhosis and is trying to get into rehab, last drink was approx 4 hours ago, pt also reports SOB and nausea. Coronavirus screen: Vaccine status: Patient reports receiving the 2nd dose of the covid vaccine. Ebola Screen: No symptoms or risks identified at this time. Initial Sepsis Screen: Does the patient meet any 2 criteria? No. Patient's initial sepsis screen is negative. Does the patient have a suspected source of infection? No. Patient's initial sepsis screen is negative. Risk Assessment: Do you want to hurt yourself or someone else? Patient reports no desire to harm self or others. Onset of symptoms was March 21, 2023. 18:28 Method Of Arrival: Ambulatory ph 18:28 Acuity: BONITA 3 ph Historical: - Allergies: 18:30 No Known Allergies; ph - PMHx: 18:30 Alcoholism; Bipolar disorder; cirrhosis of liver; Depression; Hypertension; ph - PSHx: 18:30 Sternum Reconstruction; ph - Immunization history:: Adult Immunizations unknown. - Social history:: Smoking status: unknown. Screenin:15 [facility] ED Fall Risk Assessment (Adult) Score/Fall Risk Level 3 or more points = High ha1 Risk Oriented to surroundings, Maintained a safe environment, Educated pt \T\ family on fall prevention, incl call for assistance when getting out of bed, Assessed \T\ reinforced patient's understanding of fall precautions, Provided non-skid footwear, Hourly rounding (assess needs \T\ fall precautionary measures) done, Used ambulatory aids as needed (educated on \T\ assisted with), Utilized family, sitter, or virtual dietary service aide as indicated. Abuse screen: Denies threats or abuse. Denies injuries from another. Nutritional screening: No deficits noted. Tuberculosis screening: No symptoms or risk factors identified. Assessment: 19:15 General: Appears distressed, uncomfortable, Behavior is cooperative, anxious, crying. ha1 Pain: Complains of pain in mid-sternal area Pain does not radiate. Pain began suddenly, 4 hours ago. Neuro: Level of Consciousness is awake, alert, obeys commands, Oriented to person, place, time, situation. Cardiovascular: Capillary refill < 3 seconds Patient's skin is warm and dry. Rhythm is sinus rhythm. Respiratory: Airway is patent Respiratory effort is even, unlabored, Respiratory pattern is regular, symmetrical. GI: Abdomen is round non-distended, Pt is actively vomiting small amount of blood-tinged bile. Derm: Skin is healthy with good turgor, Skin is pink, warm \T\ dry. Musculoskeletal: Circulation, motion, and sensation intact. 20:00 Reassessment: Patient appears in no apparent distress at this time. Patient and/or ha1 family updated on plan of care and expected duration. Pain level reassessed. Patient is alert, oriented x 3, equal unlabored respirations, skin warm/dry/pink. 20:30 Reassessment: Patient states symptoms have improved. ha1 21:00 Reassessment: Patient appears in no apparent distress at this time. Patient and/or ha1 family updated on plan of care and expected duration. Pain level reassessed. Patient is alert, oriented x 3, equal unlabored respirations, skin warm/dry/pink. Vital Signs: 18:28 BP 143 / 102; Pulse 109; Resp 18; Temp 98.1; Pulse Ox 99% on R/A; Weight 48.99 kg; ph Height 5 ft. 1 in. ; 20:00 BP 127 / 87; Pulse 94; Resp 18; Pulse Ox 100% on R/A; eh3 20:30 BP 122 / 85; Pulse 91; Resp 20; Pulse Ox 100% on R/A; ha1 21:00 BP 104 / 67; Pulse 94; Resp 20; Pulse Ox 99% on R/A; ha1 18:28 Body Mass Index 20.41 (48.99 kg, 154.94 cm) ph ED Course: 18:24 Patient arrived in ED. mg5 18:30 Rika Hinds FNP-C [facility]. kb 18:30 Vj Velasquez MD is Attending Physician. kb 18:30 Triage completed. ph 18:31 Arm band placed on Patient placed in waiting room, Patient notified of wait time. ph 19:10 Airam Rick, RN is Primary Nurse. eh3 19:15 Chest Single View XRAY In Process Unspecified. EDMS 19:15 Patient has correct armband on for positive identification. Bed in low position. Call ha1 light in reach. Side rails up X2. Adult w/ patient. Provided Education on: Use of call [place]. Client placed on continuous cardiac and pulse oximetry monitoring. NIBP monitoring applied. 19:15 Patient maintains SpO2 saturation greater than 95% on room air. ha1 19:45 Inserted saline lock: 22 gauge in left antecubital area, using aseptic technique. Blood ha1 collected. 20:24 Abdomen Limited US In Process Unspecified. EDMS 21:15 Report given to SARAHI Arreguin. ha1 21:40 No provider procedures requiring assistance completed. IV discontinued, intact, ha1 bleeding controlled, No redness/swelling at site. Pressure dressing applied. Administered Medications: 19:58 Drug: NS 0.9% IV 1000 ml IV at 1 bolus Per protocol; 1000 mL bolus Route: IV; Rate: 1 eh3 bolus; Site: left antecubital; 21:00 Follow up: IV Status: Completed infusion; IV Intake: 1000ml ha1 19:58 Drug: Famotidine IVP 20 mg IVP once; dilute with 10 mL 0.9% NaCl; give over 2 minutes eh3 Route: IVP; Site: left antecubital; 20:30 Follow up: Response: No adverse reaction ha1 19:58 Drug: Ondansetron IVP 4 mg IVP once; over 2 minutes Route: IVP; Site: left antecubital; eh3 20:30 Follow up: Response: No adverse reaction ha1 19:58 Drug: Ativan IVP 1 mg IVP once Route: IVP; Site: left antecubital; eh3 20:30 Follow up: Response: No adverse reaction; Pain is decreased; Anxiety decreased ha1 Medication: 21:41 VIS not applicable for this client. ha1 Intake: 21:00 IV: 1000ml; Total: 1000ml. ha1 Outcome: 21:23 Discharge ordered by . jadon 21:40 Discharged to home via wheelchair, with family, ha1 21:40 Condition: stable 21:40 Discharge instructions given to patient, family, Instructed on discharge instructions, follow up and referral plans. Demonstrated understanding of instructions, follow-up care, 21:41 Patient left the ED. ha1 Signatures: Dispatcher [employer] Rika Gauthier, CAR BLOCKER-C MIGUEL-Whitney Candelario, RN RN Airam Rick RN RN 3 Kallie Bertrand RN RN ha1 Joan Jung 5
[2023-03-21 22:35] VITALS: TEMP 98.1
[2023-03-21 22:40] VITALS: BP 104/67; O2SAT 99
== END 2023-03-21 21:41 | disposition home or self-care (01) ==
LOC: ER 18:20
DX: F10.229 Alcohol dependence with intoxication, unspecified (principal); F41.9 Anxiety disorder, unspecified
CPT/HCPCS: 36415; 71045; 76705; 80053; 80143; 80179; 80307; 81001; 81025; 82077; 83690; 84484; 85025; 85610; 85730; J2405; J7030

== ENCOUNTER 2023-04-18 20:30 | Emergency (ER) | payer SELFPAY ==
--- OUTSIDE RECORDS SUMMARY | 2023-04-18 20:35 | XMS REPORT | Continuity of Care Document ---
:1985 Author Organization [facility] t Address [address] [facility] [place] [address] Care Team Providers Name Role Phone MIHIR THOMAS Primary Care Physician Unavailable Shannan Silvestre Attending Clinician Unavailable BARB WILLAMS Attending Clinician Unavailable RINKU SANCHEZ Attending Clinician Unavailable LISSA GOMEZ Attending Clinician Unavailable Leonor Anderson Attending Clinician Maria Isabel Davenport MD Attending Clinician MARIA ISABEL REYES Attending Clinician Unavailable Marina Flores MD Attending Clinician [phone] Doctor Unassigned, Norris Attending Clinician Unavailable Madison Stark RN Attending Clinician Unavailable LUCINA DOCKERY Attending Clinician Unavailable MIHIR THOMAS Attending Clinician Unavailable GENESIS HER Attending Clinician Unavailable Genesis Her NP Attending Clinician GLENNA CAMARILLO Attending Clinician Unavailable Shelby MSN, Sita Chacon Attending Clinician Lucina Dockery CNM Attending Clinician Visit, [facility]-chp Nurse Attending Clinician Unavailable Mihir Medeiros Attending Clinician [phone] Anna Welch Attending Clinician ANNA AGUERO Attending Clinician Unavailable MARQUITA GOMES Attending Clinician Unavailable MARY LYMAN Attending Clinician Unavailable Mary Lyman MD Attending Clinician Brooklyn Rodriguez Attending Clinician BROOKLYN WILKES Attending Clinician Unavailable Keshia Castrejon MD Attending Clinician Lily Alvarez Attending Clinician Eliseo RIVERA, Marquita Jesus Attending Clinician LUCINA DOCKERY Admitting Clinician Unavailable MARY LYMAN Admitting Clinician Unavailable BROOKLYN WILKES Admitting Clinician Unavailable Payers Payer Name Policy Type Policy Number Effective Date Expiration Date Huy lau [facility] [id number] 2022 HEALTHCARE 00:00:00 Problems Condition Condition Condition Status Onset Resolution Last Treating Co mments Source Name Details Category Date Date Treatment Clinician Date Pelvic Pelvic Disease Active Univers pain pain 2-09 ity of 00:00: [address] Encounter Encounter Disease Active Uni vers for for 4-16 [place] pres[place] Medical progestin- progestin- Br anch only only injected injected contracept contracept jacob jacob Irregular Irregular Disease Active Uni vers menses menses 8- ity of 00:00: [place] [facility] Well woman Well woman Disease Active U nivers exam exam 4-07 ity of 00:00: [place] [facility] Mollusca Mollusca Disease Active Unive rs contagiosa contagiosa 4- it y of 00:00: [place] [facility] Tobacco Tobacco Disease Active Univers use use 4-07 ity of disorder disorder 00:00: [address] Contracept Contracept Disease Active U nivers jacob jacob 1-07 [place] [facility] Allergies, Adverse Reactions, Alerts Allergy Allergy Status Severity Reaction(s) Onset Inactive Treating Comm ents Source Name Type Date Date Clinician NO KNOWN Drug Active Univers ALLERGIE Class ity of S [facility] Social History Social Habit Start Date Stop Date Quantity Comments Source History SDOH University o f Alcohol Frequency [place] [facility] History SDOH University o f Alcohol Std Drinks [place] [facility] History SDOH University o f Alcohol Binge [place] [facility] History of tobacco Cigarette Smoker University of use [facility] Gender identity Universit y of [facility] Sexual orientation [facility] History of Social 2023-04-13 2023-04-13 [facility] function 00:00:00 00:00:00 Exposure to 2022-09-30 2022-10-10 Not sure [facility] SARS-CoV-2 (event) 00:00:00 12:49:00 [facility] Tobacco use and 2022-10-03 2022-10-03 Smokeless Universit y of exposure 00:00:00 00:00:00 tobacco non-user [facility] dicia Branch Cigarettes smoked 2022-10-03 2022-10-03 Univers ity of current (pack per 00:00:00 00:00:00 [facility]) - Reported Branch Cigarette 2022-10-03 2022-10-03 University of pack-years 00:00:00 00:00:00 [facility] Alcohol intake 2022-10-03 2022-10-03 Ex-drinker University of 00:00:00 00:00:00 (finding) [facility] Tobacco Comment 2022-03-21 2022-03-21 states only Universi ty of 00:00:00 00:00:00 smokes on [facility] Alcohol Comment 2012-10-03 2012-10-03 socially Universit y of 00:00:00 00:00:00 [facility] Sex Ass[birth year] At [birth year] [facility] 00:00:00 00:00:00 Smoking Status Start Date Stop Date Source Occasional tobacco 2022-10-03 00:00:00 Universit y of [place] smoker Medical Branch Ex-smoker 2022-03-21 00:00:00 2022-03-21 University o f [place] 00:00:00 [facility] Medications Ordered Filled Start Stop Current Ordering Indication Dosage Frequency Signature Comments Components Source Medication Medication Date Date Medication? Clinician (SIG) Name Name HYDROmorpho 2022-07- No Intravenou [place] ne 1 mg/mL 0-17 10-17 s, PRN, Healt h injection 13:39: 13:58 Starting 00 :13 on e 04/17/23 at 1339, Until e 04/17/23 at 1358, STAT, Anesthesia Intra-op sugammadex 2022-07- No Intravenou [place] (BRIDION) 0-17 10-17 s, PRN, Health 100 mg/mL 13:30: 13:58 Starting injection 00 :13 on e 04/17/23 at 1330, Until 04/17/23 at 1358, Routine, Anesthesia Intra-op ondansetron 2022-07- No IV Push, H arris (ZOFRAN) 0-17 10-17 PRN, Health injection 13:19: 13:58 Starting 00 :13 on Sun04/17/23 at 1319, Until e 04/17/23 at 1358, Routine, Anesthesia Intra-op phenylephri 2022-07- No Intravenou Bardley ne 0-17 10-17 s, PRN, Health (YARI-SYNEPH 12:15: 13:58 Starting RINE) 1 00 :13 on Tue mg/10 mL 04/17/23 (100 at 1215, mcg/mL) Until Tue injection 04/17/23 at 1358, Routine, Anesthesia Intra-op acetaminoph 2022-07- No Intravenou [place] en 0-17 10-17 s, PRN, Health (OFIRMEV) 12:00: 13:58 Starting 1,000 00 :13 on Tue mg/100 mL 04/17/23 (10 mg/mL) at 1200, injection Until Sun04/17/23 at 1358, Routine, Anesthesia Intra-op dexAMETHaso 2022-07- No Intravenou [place] ne 0-17 10-17 s, PRN, Health (DECADRON) 12:00: 13:58 Starting injection 00 :13 on e 04/17/23 at 1200, Until 04/17/23 at 1358, Routine, Anesthesia Intra-op rocuronium 2022-07- No Intravenou [place] injection 0-17 10-17 s, PRN, Health 11:58: 13:58 Starting 00 :13 on Sun04/17/23 at 1158, Until Sun04/17/23 at 1358, Routine, Anesthesia Intra-op ceFAZolin 2022-07- No Intravenou H arris (ANCEF) 0-17 10-17 s, PRN, Health injection 11:58: 13:58 Starting 00 :13 on Sun04/17/23 at 1158, Until Sun04/17/23 at 1358, Routine fentaNYL 2022-07- No Intravenou Upton rris injection 0-17 10-17 s, PRN, Health 11:47: 13:58 Starting 00 :13 on Sun04/17/23 at 1147, Until Sun04/17/23 at 1358, STAT, Anesthesia Intra-op lidocaine 2022-07- No Intravenou H arris (PF) 0-17 10-17 s, PRN, Health (XYLOCAINE) 11:47: 13:58 Starting 20 mg/mL (2 00 :13 on e %) 04/17/23 injection at 1147, Until Sun04/17/23 at 1358, Routine, Anesthesia Intra-op propofoL 10 2022-07- No Intravenou [place] mg/mL IV 0-17 10-17 s, PRN, Health DRIP 11:47: 13:58 Starting (PREMIX) 00 :13 on Sun04/17/23 at 1147, Until Sun04/17/23 at 1358, Routine, Anesthesia Intra-op succinylcho 2022-07- No Intravenou [place] line OR 0-17 10-17 s, PRN, Health syringe 11:47: 13:58 Starting 00 :13 on Sun04/17/23 at 1147, Until e 04/17/23 at 1358, Routine, Anesthesia Intra-op midazolam 2022-07- No Intravenou H arris (PF) 0-17 10-17 s, PRN, Health (VERSED) 11:46: 13:58 Starting injection 00 :13 on Sun04/17/23 at 1146, Until Sun04/17/23 at 1358, Routine, Anesthesia Intra-op lactated 2022-07- No Intravenou [place] rris Ringers 0-17 10-17 s, Health infusion 11:38: 13:58 Starting 00 :13 on Sun04/17/23 at 1138, Until Sun04/17/23 at 1358, Anesthesia Intra-op ondansetron 2022- No 4mg 4 mg, Univ ers (ZOFRAN-ODT 11-30 06- Oral, ity of ) 15:00: 15:00 ONCE, 1 [place] disintegrat 00 :00 dose, On Medi jemima ing tablet Kriss 11/30/22 Bra nch 4 mg at 1000, Routine ondansetron 0 Yes [id number] 4mg Take 1 Univers 4 mg 6-01 tablet by ity of disintegrat 00:00: mouth [place] ing tablet 00 every 8 Medica l (eight) Branch hours as needed for Nausea and Vomiting (N/V). ondansetron 2022-0 Yes [id number] 4mg Take 1 Univers 4 mg 6-01 tablet by ity of disintegrat 00:00: mouth [place] ing tablet 00 every 8 Medica l (eight) Branch hours as needed for Nausea and Vomiting (N/V). ondansetron 2022-0 Yes [id number] 4mg Take 1 Univers 4 mg 6-01 tablet by ity of disintegrat 00:00: mouth [place] ing tablet 00 every 8 Medica l (eight) Branch hours as needed for Nausea and Vomiting (N/V). ondansetron 2022-0 Yes [id number] 4mg Take 1 Univers 4 mg 6-01 tablet by ity of disintegrat 00:00: mouth [place] ing tablet 00 every 8 Medica l (eight) Branch hours as needed for Nausea and Vomiting (N/V). ondansetron 2022-0 Yes [id number] 4mg Take 1 Univers 4 mg 6-01 tablet by ity of disintegrat 00:00: mouth [place] ing tablet 00 every 8 Medica l (eight) Branch hours as needed for Nausea and Vomiting (N/V). cephALEXin 2022-0 2022- No [id number] 250mg Take 1 Univers 250 mg 6-07 07- capsule by ity of capsule 00:00: 04:59 mouth [place] 00 :00 every 6 Medical (six) Branch hours for 3 days. medroxyPROG 2022-0 2023- No [id number] 150mg Univers ESTERone 4- 03-05 ity of (DEPO-PROVE 20:45: 21:44 [place] RA) syringe 00 :00 Medical 150 mg Branch medroxyPROG 2023-0 2023- No [id number] 150mg 150 mg, Univers ESTERone -10 02-05 Intramuscu ity of (DEPO-PROVE 20:45: 21:44 lar, [place] RA) syringe 00 :00 [id number], Med ical 150 mg 4 doses, Branch First dose on Sun10/03/22 at 1545, Last dose on Sun06/12/23 at 1545 medroxyPROG 2023-0 2023- No [id number] 150mg Univers ESTERone -10 02-05 ity of (DEPO-PROVE 20:45: 21:44 [place] RA) syringe 00 :00 Medical 150 mg Branch medroxyPROG 2023-0 2023- No [id number] 150mg 150 mg, Univers ESTERone 10-03-05 Intramuscu ity of (DEPO-PROVE 20:45: 21:44 lar, [place] RA) syringe 00 :00 [id number], Med ical 150 mg 4 doses, Branch First dose on Sun10/03/22 at 1545, Last dose on Sun06/12/23 at 1545 medroxyPROG 2023-0 2023- No [id number] 150mg Univers ESTERone -10 02-05 ity of (DEPO-PROVE 20:45: 21:44 [place] RA) syringe 00 :00 Medical 150 mg Branch medroxyPROG 3-0 2023- No [id number] 150mg Univers ESTERone - 03-05 ity of (DEPO-PROVE 20:45: 21:44 [place] RA) syringe 00 :00 Medical 150 mg Branch medroxyPROG 3-0 2023- No [id number] 150mg Univers ESTERone 4- 03-05 ity of (DEPO-PROVE 20:45: 21:44 [place] RA) syringe 00 :00 Medical 150 mg Branch medroxyPROG 2023-0 2023- No [id number] 150mg Univers ESTERone 4- 03-05 ity of (DEPO-PROVE 20:45: 21:44 [place] RA) syringe 00 :00 Medical 150 mg Branch medroxyPROG 2023-0 4- No [id number] 150mg Univers ESTERone 4-04 -05 ity of (DEPO-PROVE 20:45: 21:44 [place] RA) syringe 00 :00 Medical 150 mg Branch medroxyPROG 2023- No [id number] 150mg Univers ESTERone 4-10 02-05 ity of (DEPO-PROVE 20:45: 21:44 [place] RA) syringe 00 :00 Medical 150 mg Branch medroxyPROG 2023- No [id number] 150mg Univers ESTERone 4-10 02-05 ity of (DEPO-PROVE 20:45: 21:44 [place] RA) syringe 00 :00 Medical 150 mg Branch tramadol-ac 2022- No 1{tbl} Take 1 U nivers etaminophen 4-04 -04 tablet by it y of 37.5-325 mg 15:38: 00:00 [place] per tablet 16 :00 every 6 Medica l (six) Branch hours as needed for Pain. tramadol-ac No 1{tbl} Take 1 U nivers etaminophen 4-04 -04 tablet by it y of 37.5-325 mg 15:38: 00:00 [place] per tablet 16 :00 every 6 Medica l (six) Branch hours as needed for Pain. medroxyPROG No [id number] 150mg Univers ESTERone 1-10 -10 ity of (DEPO-PROVE 22:30: 21:42 [place] RA) syringe 00 :00 Medical 150 mg Branch medroxyPROG No [id number] 150mg 150 mg, Univers ESTERone 1-10 -10 Intramuscu ity of (DEPO-PROVE 22:30: 21:42 lar, ONCE, [place] RA) syringe 00 :00 1 dose, On Me dical 150 mg Tue Branch 07/11/22 at 1630, Routine medroxyPROG 2021- No [id number] 150mg Univers ESTERone 9-20 09-20 ity of (DEPO-PROVE 19:45: 18:52 [place] RA) syringe 00 :00 Medical 150 mg Branch medroxyPROG 2021- No [id number] 150mg 150 mg, Univers ESTERone 03-21 09-20 Intramuscu ity of (DEPO-PROVE 19:45: 18:52 lar, ONCE, [place] RA) syringe 00 :00 1 dose, On Me dical 150 mg Tue Branch 03/21/22 at 1445, Routine medroxyPROG 2020-07- No [id number] 150mg Univers ESTERone 06-02 ity of (DEPO-PROVE 20:15: 20:14 [place] RA) 00 :00 Medical injection Branch 150 mg medroxyPROG 2020-07- No [id number] 150mg 150 mg, Univers ESTERone 06-02 Intramuscu ity of (DEPO-PROVE 20:15: 20:14 lar, [place] RA) 00 :00 [id number], Medical injection 4 doses, Branch 150 mg First dose on Sun07/01/21 at 1415, Last dose on Sun03/10/22 at 1415, Routine medroxyPROG 2020-07- No [id number] 150mg Univers ESTERone 06-02 ity of (DEPO-PROVE 20:15: 20:14 [place] RA) 00 :00 Medical injection Branch 150 mg medroxyPROG 2020-07- No [id number] 150mg Univers ESTERone 06-02 ity of (DEPO-PROVE 20:15: 20:14 [place] RA) 00 :00 Medical injection Branch 150 mg medroxyPROG 2020-07- No [id number] 150mg 150 mg, Univers ESTERone 06-02 Intramuscu ity of (DEPO-PROVE 20:15: 20:14 lar, [place] RA) 00 :00 [id number], Medical injection 4 doses, Branch 150 mg First dose on Sun07/01/21 at 1415, Last dose on Sun03/10/22 at 1415, Routine medroxyPROG 2020-07- No [id number] 150mg Univers ESTERone 06-02 ity of (DEPO-PROVE 20:15: 20:14 [place] RA) 00 :00 Medical injection Branch 150 mg medroxyPROG 2020-07- No [id number] 150mg 150 mg, Univers ESTERone 06-02 Intramuscu ity of (DEPO-PROVE 20:15: 20:14 lar, [place] RA) 00 :00 [id number], Medical injection 4 doses, Branch 150 mg First dose on Sun07/01/21 at 1415, Last dose on Sun03/10/22 at 1415, Routine medroxyPROG 2020-072- No [id number] 150mg Univers ESTERone 06-02 ity of (DEPO-PROVE 20:15: 20:14 [place] RA) 00 :00 Medical injection Branch 150 mg cephALEXin 2020-07 Yes [id number] 500mg Take 1 Univers (KEFLEX) 2-29 capsule by ity o f 500 mg 00:00: mouth 3 [place] capsule 00 (three) Medical times Branch daily. cephALEXin 2020-07 Yes [id number] 500mg Take 1 Univers (KEFLEX) 2-29 capsule by ity o f 500 mg 00:00: mouth 3 [place] capsule 00 (three) Medical times Branch daily. cephALEXin 2020-07 Yes [id number] 500mg Take 1 Univers (KEFLEX) 2-29 capsule by ity o f 500 mg 00:00: mouth 3 [place] capsule 00 (three) Medical times Branch daily. cephALEXin 2020-07 Yes [id number] 500mg Take 1 Univers (KEFLEX) 2-29 capsule by ity o f 500 mg 00:00: mouth 3 [place] capsule 00 (three) Medical times Branch daily. cephALEXin 2020-07 Yes [id number] 500mg Take 1 Univers (KEFLEX) 2-29 capsule by ity o f 500 mg 00:00: mouth 3 [place] capsule 00 (three) Medical times Branch daily. cephALEXin 2020-07 Yes [id number] 500mg Take 1 Univers (KEFLEX) 2-29 capsule by ity o f 500 mg 00:00: mouth 3 [place] capsule 00 (three) Medical times Branch daily. cephALEXin 2020-07 Yes [id number] 500mg Take 1 Univers (KEFLEX) 2-29 capsule by ity o f 500 mg 00:00: mouth 3 [place] capsule 00 (three) Medical times Branch daily. cephALEXin 2020-07 Yes [id number] 500mg Take 1 Univers (KEFLEX) 2-29 capsule by ity o f 500 mg 00:00: mouth 3 [place] capsule 00 (three) Medical times Branch daily. cephALEXin 2020-07- No [id number] 500mg Take 1 Univers (KEFLEX) -04 capsule by ity of 500 mg 00:00: 00:00 mouth 3 [place] capsule 00 :00 (three) Medical times Branch daily. cephALEXin 2020-07- No [id number] 500mg Take 1 Univers (KEFLEX) -04 capsule by ity of 500 mg 00:00: 00:00 mouth 3 [place] capsule 00 :00 (three) Medical times Branch daily. naproxen Yes [id number] 250mg Take 1 Un evaristo 250 mg 2-09 tablet by ity of tablet 00:00: mouth [place] 00 every 8 Medical (eight) Branch hours as needed for Pain (scale 4-6). Take 500mg followed by 250mg every 6-8 hours naproxen 2020-0 Yes [id number] 250mg Take 1 Un evaristo 250 mg 2-09 tablet by ity of tablet 00:00: mouth [place] every 8 Medical (eight) Branch hours as needed for Pain (scale 4-6). Take 500mg followed by 250mg every 6-8 hours naproxen 2020-0 Yes [id number] 250mg Take 1 Un evaristo 250 mg 2-09 tablet by ity of tablet 00:00: mouth [place] 00 every 8 Medical (eight) Branch hours as needed for Pain (scale 4-6). Take 500mg followed by 250mg every 6-8 hours naproxen 2020-0 Yes [id number] 250mg Take 1 Un evaristo 250 mg 2-09 tablet by ity of tablet 00:00: mouth [place] 00 every 8 Medical (eight) Branch hours as needed for Pain (scale 4-6). Take 500mg followed by 250mg every 6-8 hours naproxen 2020-0 Yes [id number] 250mg Take 1 Un evaristo 250 mg 2-09 tablet by ity of tablet 00:00: mouth [place] 00 every 8 Medical (eight) Branch hours as needed for Pain (scale 4-6). Take 500mg followed by 250mg every 6-8 hours naproxen 2020-0 Yes [id number] 250mg Take 1 Un evaristo 250 mg 2-09 tablet by ity of tablet 00:00: mouth [place] every 8 Medical (eight) Branch hours as needed for Pain (scale 4-6). Take 500mg followed by 250mg every 6-8 hours naproxen 0 Yes [id number] 250mg Take 1 Un evaristo 250 mg 2-09 tablet by ity of tablet 00:00: mouth [place] 00 every 8 Medical (eight) Branch hours as needed for Pain (scale 4-6). Take 500mg followed by 250mg every 6-8 hours naproxen 0 Yes [id number] 250mg Take 1 Un evaristo 250 mg 2-09 tablet by ity of tablet 00:00: mouth [place] 00 every 8 Medical (eight) Branch hours as needed for Pain (scale 4-6). Take 500mg followed by 250mg every 6-8 hours naproxen 0 3- No [id number] 250mg Take 1 U nivers 250 mg 2-09 04-04 tablet by ity of tablet 00:00: 00:00 mouth [place] 00 :00 every 8 Medical (eight) Branch hours as needed for Pain (scale 4-6). Take 500mg followed by 250mg every 6-8 hours naproxen 0 2022- No [id number] 250mg Take 1 U nivers 250 mg [...] as needed for Pain. Immunizations Ordered Filled Date Status Comments Source Immunization Name Immunization Name [facility] 2022-03-21 Completed University of 00:00:00 [facility] 2022-03-21 Completed University of 00:00:00 [facility] 2022-03-21 Completed University of 00:00: [facility] 2022-03-21 Completed University of 00:00:00 [facility] 2022-03-21 Completed University of 00:00:00 [facility] 2022-03-21 Completed University of 00:00:00 [facility] 2022-03-21 Completed University of 00:00:00 [facility] 2022-03-21 Completed University of 00:00: [facility] 2022-03-21 Completed University of 00:00:00 [facility] 2022-03-21 Completed University of 00:00:00 [facility] 2022-03-21 Completed University of 00:00:00 [facility] 2022-03-21 Completed University of 00:00:00 [place] [facility] HPV9 2021-08-31 Completed University of 00:00:00 [place] [facility] HPV9 2021-08-31 Completed University of 00:00:00 [place] [facility] HPV9 2021-08-31 Completed University of 00:00:00 [place] [facility] HPV9 2021-08-31 Completed University of 00:00:00 [place] [facility] HPV9 2021-08-31 Completed University of 00:00:00 [place] [facility] HPV9 2021-08-31 Completed University of 00:00:00 [place] [facility] HPV9 2021-08-31 Completed University of 00:00:00 [place] [facility] HPV9 2021-08-31 Completed University of 00:00:00 [place] [facility] HPV9 2021-08-31 Completed University of 00:00:00 [place] [facility] HPV9 2021-08-31 Completed University of 00:00:00 [place] [facility] HPV9 2021-08-31 Completed University of 00:00:00 [place] [facility] HPV9 2021-08-31 Completed University of 00:00:00 [place] [facility] HPV9 2021-08-31 Completed University of 00:00:00 [place] [facility] HPV9 2021-08-31 Completed University of 00:00:00 [place] [facility] HPV9 2021-08-31 Completed University of 00:00:00 [place] [facility] HPV9 2021-07-01 Completed University of 00:00:00 [place] [facility] HPV9 2021-07-01 Completed University of 00:00:00 [place] [facility] HPV9 2021-07-01 Completed University of 00:00:00 [place] [facility] HPV9 2021-07-01 Completed University of 00:00:00 [place] [facility] HPV9 2021-07-01 Completed University of 00:00:00 [place] [facility] HPV9 2021-07-01 Completed University of 00:00:00 [place] [facility] HPV9 2021-07-01 Completed University of 00:00:00 [place] [facility] HPV9 2021-07-01 Completed University of 00:00:00 [place] [facility] HPV9 2021-07-01 Completed University of 00:00:00 [place] [facility] HPV9 2021-07-01 Completed University of 00:00:00 [facility] HPV9 2021-07-01 Completed University of 00:00:00 [facility] HPV9 2021-07-01 Completed University of 00:00:00 [facility] HPV9 2021-07-01 Completed University of 00:00:00 [facility] HPV9 2021-07-01 Completed University of 00:00:00 [facility] HPV9 2021-07-01 Completed University of 00:00:00 [facility] HPV9 2021-07-01 Completed University of 00:00:00 [facility] SARS-COV-2 COVID-19 2021-05-09 Completed Unive rsity of PFIZER VACCINE 00:00:00 [facility] SARS-COV-2 COVID-19 2021-05-09 Completed Unive rsity of PFIZER VACCINE 00:00:00 [facility] SARS-COV-2 COVID-19 2021-05-09 Completed Unive rsity of PFIZER VACCINE 00:00:00 [facility] SARS-COV-2 COVID-19 2021-05-09 Completed Unive rsity of PFIZER VACCINE 00:00:00 [facility] SARS-COV-2 COVID-19 2021-05-09 Completed Unive rsity of PFIZER VACCINE 00:00:00 [facility] SARS-COV-2 COVID-19 2021-05-09 Completed Unive rsity of PFIZER VACCINE 00:00:00 [facility] SARS-COV-2 COVID-19 2021-05-09 Completed Unive rsity of PFIZER VACCINE 00:00:00 [facility] SARS-COV-2 COVID-19 2021-05-09 Completed Unive rsity of PFIZER VACCINE 00:00:00 [facility] Influenza Virus 2020-05-06 Completed Universit y of Vaccine Quad .5 mL 00:00:00 [place] [facility] IM 6+ MO Branch Influenza Virus 2020-05-06 Completed Universit y of Vaccine [place] .5 mL 00:00:00 [place] [facility] IM 6+ MO Branch Influenza Virus 2020-05-06 Completed Universit y of Vaccine [place] .5 mL 00:00:00 [place] [facility] IM 6+ MO Branch Influenza Virus 2020-05-06 Completed Universit y of Vaccine [place] .5 mL 00:00:00 [place] [facility] IM 6+ MO Branch Influenza Virus 2020-05-06 Completed Universit y of Vaccine [place] .5 mL 00:00:00 [place] [facility] IM 6+ MO Branch Influenza Virus [...] y of Vaccine Quad .5 mL 00:00:00 [place] [facility] IM 6+ MO Branch Influenza Virus 2020-05-06 Completed Universit y of Vaccine [place] .5 mL 00:00:00 [place] [facility] 6+ MO Branch Influenza Virus 2020-05-06 Completed Universit y of Vaccine [place] .5 mL 00:00:00 [place] [facility] 6+ MO Branch (FLUZONE/FLULAVAL/F LUARIX) Influenza Virus 2020-05-06 Completed Universit y of Vaccine [place] .5 mL 00:00:00 [place] [facility] 6+ MO Branch (FLUZONE/FLULAVAL/F LUARIX) Influenza Virus 2020-05-06 Completed Universit y of Vaccine [place] .5 mL 00:00:00 [place] [facility] 6+ MO Branch (FLUZONE/FLULAVAL/F LUARIX) Influenza Virus 2020-05-06 Completed Universit y of Vaccine [place] .5 mL 00:00:00 [place] [facility] 6+ MO Branch (FLUZONE/FLULAVAL/F LUARIX) TDAP 2011-10-31 Completed University of 00:00:00 [facility] TDAP 2011-10-31 Completed University of 00:00:00 [facility] TDAP 2011-10-31 Completed University of 00:00:00 [facility] TDAP 2011-10-31 Completed University of 00:00:00 [facility] TDAP 2011-10-31 Completed University of 00:00:00 [facility] TDAP 2011-10-31 Completed University of 00:00:00 [facility] TDAP 2011-10-31 Completed University of 00:00:00 [place] [facility] TDAP 2011-10-31 Completed University of 00:00:00 [place] [facility] TDAP 2011-10-31 Completed University of 00:00:00 [place] [facility] [place] TDAP 2011-10-31 Completed University of 00:00:00 [place] [facility] TDAP 2011-10-31 Completed University of 00:00:00 [place] [facility] [place] TDAP 2011-10-31 Completed University of 00:00:00 [place] [facility] [place] TDAP 2011-10-31 Completed [facility] 00[facility]00 [place] [facility] [place] TDAP 2011-10-31 Completed [facility] 00:00:00 [facility] TDAP 2011-10-31 Completed [facility] 00:00:00 [facility] TDAP 2011-10-31 Completed [facility] 00:00:00 [facility] TDAP Unknown Completed [facility] Influenza Virus [facility] 6+ MO Branch (FLUZONE/FLULAVAL/F LUARIX) HPV9 Unknown Completed [facility] HPV9 Unknown Completed [facility] HPV9 Unknown Completed [facility] SARS-COV-2 COVID-19 Unknown Completed Unive rsity of PFIZER VACCINE [facility] Vital Signs Vital Name Observation Time Observation Value Comments Source Systolic blood 2022-11-30 13:21:00 142 mm[Hg] Univer sity of pressure [facility] Diastolic blood 2022-11-30 13:21:00 87 mm[Hg] Unive rsity of pressure [facility] Heart rate 2022-11-30 13:21:00 97 /min [facility] Body temperature 2022-11-30 13:21:00 37.22 Sushma [facility] Respiratory rate 2022-11-30 13:21:00 18 /min [facility] Body height 2022-11-30 13:21:00 157.5 cm [facility] Body weight 2022-11-30 13:21:00 51.256 kg [facility] BMI 2022-11-30 13:21:00 20.67 kg/m2 [facility] Oxygen saturation in 2022-11-30 13:21:00 99 /min [facility] Arterial blood by [facility] Pulse oximetry Branch Systolic blood 2022-10-03 20:28:00 137 mm[Hg] Univer sity of [facility] Diastolic blood 2022-10-03 20:28:00 82 mm[Hg] Unive rsity of pressure [facility] Heart rate 2022-10-03 20:28:00 76 /min [facility] [place] [facility] [place] Body temperature 2022-10-03 20:28:00 36.28 Sushma [facility] ers[facility] Respiratory rate 2022-10-03 20:28:00 20 /min Univ ersity of [facility] Body height 2022-10-03 20:28:00 154.9 cm Universi ty of [facility] Body weight 2022-10-03 20:28:00 54.205 kg [facility] BMI 2022-10-03 20:28:00 22.58 kg/m2 [facility] Systolic blood 2022-07-11 20:09:00 138 mm[Hg] Univer sity of [facility] Diastolic blood 2022-07-11 20:09:00 88 mm[Hg] Unive rsity of [facility] Heart rate 2022-07-11 20:09:00 94 /min [facility] Body temperature 2022-07-11 20:09:00 36.33 Sushma Univ [facility] Respiratory rate 2022-07-11 20:09:00 18 /min Univ ersity of [facility] Body weight 2022-07-11 20:09:00 56.79 kg [facility] BMI 2022-07-11 20:09:00 23.66 kg/m2 [facility] Systolic blood 2022-03-21 18:47:00 118 mm[Hg] manual Univer [facility]ity [facility] Diastolic blood 2022-03-21 18:47:00 86 mm[Hg] manual Unive rsity of pressure [facility] Heart rate 2022-03-21 18:45:00 77 /min [facility] Body temperature 2022-03-21 18:45:00 36.11 Sushma Univ [facility] Respiratory rate 2022-03-21 18:45:00 18 /min Univ ersity of [facility] Body height 2022-03-21 18:45:00 154.9 cm [facility] Body weight 2022-03-21 18:45:00 59.149 kg [facility] BMI 2022-03-21 18:45:00 24.64 kg/m2 [facility] Systolic blood 2021-12-27 18:42:00 134 mm[Hg] Univer sity of pressure [facility] Diastolic blood 2021-12-27 18:42:00 86 mm[Hg] Unive rsity of pressure [facility] Heart rate 2021-12-27 18:42:00 84 /min [facility] Body temperature 2021-12-27 18:42:00 36.33 Sushma Univ [facility]ity [facility] Respiratory rate 2021-12-27 18:42:00 18 /min Univ ersity of [facility] Body weight 2021-12-27 18:42:00 59.92 kg [facility] BMI 2021-12-27 18:42:00 24.96 kg/m2 [facility] Systolic blood 2021-10-04 18:44:00 128 mm[Hg] Univer sity of pressure [facility] Diastolic blood 2021-10-04 18:44:00 87 mm[Hg] Unive rsity of pressure [facility] Heart rate 2021-10-04 18:44:00 72 /min [facility] Body temperature 2021-10-04 18:44:00 35.83 Sushma Univ [facility] Respiratory rate 2021-10-04 18:44:00 18 /min Univ ersity of [facility] Body height 2021-10-04 18:44:00 154.9 cm [facility] [place] [facility] Body weight 2021-10-04 18:44:00 60.442 kg [facility] BMI 2021-10-04 18:44:00 25.18 kg/m2 [facility] Systolic blood 2021-08-31 18:58:00 111 mm[Hg] Univer sity of pressure [facility] Diastolic blood 2021-08-31 18:58:00 71 mm[Hg] Unive rsity of pressure [facility] Heart rate 2021-08-31 18:58:00 82 /min [facility] Body temperature 2021-08-31 18:58:00 36.17 Sushma [facility] ersity of [facility] [place] [facility] Respiratory rate 2021-08-31 18:58:00 16 /min Univ ersity of [facility] Body height 2021-08-31 18:58:00 154.9 cm [facility] Body weight 2021-08-31 18:58:00 61.236 kg [facility] BMI 2021-08-31 18:58:00 25.51 kg/m2 [facility] Systolic blood 2021-07-01 19:55:00 129 mm[Hg] Univer sity of pressure [facility] Diastolic blood 2021-07-01 19:55:00 92 mm[Hg] Unive rsity of pressure [facility] Heart rate 2021-07-01 19:34:00 82 /min [facility] Body temperature 2021-07-01 19:34:00 36.17 Sushma [facility] ersity of [facility] Respiratory rate 2021-07-01 19:34:00 18 /min [facility] ersity of [facility] [place] [facility] Body height 2021-07-01 19:34:00 154.9 cm [facility]i [facility] Body weight 2021-07-01 19:34:00 60.963 kg [facility] BMI 2021-07-01 19:34:00 25.39 kg/m2 [facility] Procedures Procedure Date / Time Performing Clinician Source Performed AIRWAY 2023-04-17 12:05:47 Leonor Anderson [facility] REFERRAL- 2023-03-06 05:01:00 Doctor Unassigned, No [facility] REQUEST/RESPONSE Name Medical Branch ASSIGNMENT OF BENEFITS 2022-11-30 13:58:12 Doctor Unassigned, No [facility] Name Medical Branch RAPID STREP SCREEN FOR 2022-11-30 13:51:00 Genesis Her [facility] GROUP A [facility] POCT TEST 2022-11-30 13:40:00 Genesis Her [facility] URINALYSIS 2022-11-30 13:38:00 Genesis Her [facility] RAPID INFLUENZA A/B 2022-11-30 13:38:00 Genesis Her [facility] COVID-19 (ID NOW RAPID 2022-11-30 13:38:00 Genesis Her [facility] TESTING) Medical Branch CONSENT/REFUSAL FOR 2022-11-30 13:11:51 Doctor Unassigned, No [facility] [place] [facility] Name [facility] [place] US PELVIS COMPLETE WITH 2022-10-17 14:25:42 Lucina Dockery [facility] TRANSVAGINAL [facility] POCT TEST 2022-07-11 20:10:00 Mihir Thomas [facility] ASSIGNMENT OF BENEFITS 2022-07-11 19:44:20 Doctor Unassigned, No [facility] CONSENT/REFUSAL FOR 2022-07-11 19:44:01 Doctor Unassigned, No [facility] GARDASIL 9 (HPV 9V) 2022-03-21 18:30:38 [facility]ihir [facility] POCT TEST 2021-10-04 18:51:00 Mihir Thomas [facility] GARDASIL 9 (HPV 9V) 2021-08-31 19:03:43 Anna Aguero [facility] GARDASIL 9 (HPV 9V) 2021-07-01 20:10:59 Mihir Thomas [facility] Encounters Start End Encounter Admission Attending Care Care Encounter Source Date/Time Date/Time Type Type Clinicians Facility Department ID 2023-04-17 Inpatient [facility] [id number] H arris 22:21:51 Health 2023-04-17 Inpatient [facility] [id number] H arris 00:00:00 [facility] 2023-04-16 Inpatient [facility] [id number] H arris 12:42:41 Health 2023-04-16 Inpatient [facility] [id number] H arris 00:00:00 Health 2023-04-15 Inpatient [facility] [id number] H arris 20:31:40 [facility] 2023-01-09 Outpatient AZUCENA Silvestre STLMLC [id number] Common 15:00:00 Shannan [address]13 [facility] 2021-05-01 Emergency X [facility] ERT [id number] Univers 16:51:42 ity [facility] 2021-05-01 Emergency [facility] [id number] Univers 16:50:47 [facility] 2023-04-11 2023-04-18 [facility] [id number] [place] 19:57:00 14:40:00 [facility] 2023-04-18 2023-04-18 Outpatient R PATRICIA, [facility] [id number] Univers 11:00:00 11:00:00 LISSA [facility] 2023-04-17 2023-04-17 Anesthesia Leonor Anderson 1.2.840.114 [id number] [place] 11:42:00 13:58:00 Event Maria Isabel Daven[place] [id number] [facility].6869 [id number] 2234-10-12 2023-04-12 Outpatient [facility] [id number] [place] 13:04:43 14:09:01 [facility] 2023-04-11 2023-04-11 [facility] [id number] [place] 22:02:35 22:18:36 [facility] 2023-04-11 2023-04-11 Emergency [facility] [id number] [place] 20:10:48 20:23:41 [facility] 2023-03-28 2023-03-28 Outpatient SFA SFA [id number] Heri 13:10:02 13:10:02 0927 [facility] 2023-03-22 2023-03-22 Outpatient SFA SFA [id number] Heri 16:37:48 16:37:48 0921 [facility] 2023-03-12 2023-03-12 Outpatient SFA SFA [id number] Heri 10:31:14 10:31:14 0911 [facility] 2023-03-07 2023-03-07 Telephone ANKUSH Flores 1.2.840.114 [id number] Univers 00:00:00 00:00:00 [facility] [id number] [facility] [place] [id number] [facility] 071 [place] 2023-03-06 2023-03-06 Outpatient [facility] [id number] Heri 10:09:58 10:09:58 0905 [place] 2023-03-06 2023-03-06 Orders Doctor NAIK 1.2.840.114 [id number] Univers 00:00:00 00:00:00 Only Unassigned, BERKLEY [id number] ity of [place] [facility] 4.2.7.2.686 Anatoliy as [id number] [facility] 009 [place] 2023-03-03 2023-03-03 Nurse HEENA Stark 1.2.840.114 [id number] Univers 00:00:00 00:00:00 Triage Madison GOODEN [id number] it y of [facility] 4.2.7.2.686 Anatoliy as [id number] [facility] 019 [place] 2023-03-02 2023-03-02 Outpatient [facility] [id number] Heri 13:01:55 13:01:55 0901 [facility] 2023-02-12 2023-02-12 Outpatient R [facility] [id number] Univers 14:00:00 14:00:00 ity of [facility] 2023-01-03 2023-01-03 Outpatient [facility] [id number] Heri 10:40:08 10:40:08 0705 [place] 2022-12-26 2022-12-26 Outpatient R AKINSIPE, [facility] [id number] Univers 13:30:00 13:30:00 MIHIR ity o [facility] 2022-12-01 2022-12-01 Outpatient [facility] [id number] Heri 14:18:41 14:18:41 0602 [place] 2022-11-30 2022-11-30 Emergency X [facility] ERT [id number] Univers 08:25:00 10:30:00 GENESIS ity [facility] 2022-11-30 2022-11-30 Emergency [facility] [id number] Univers 08:25:00 10:30:00 Genesis Jena HUMPHREYS [id number] ity [facility] 4.2.7.2.686 [facility] [id number] [facility] 084 Branch 2022-11-16 2022-11-16 Outpatient SFA [facility] [id number] Heri 11:35:18 11:35:18 0518 [place] 2022-11-14 2022-11-14 Outpatient SFA [facility] [id number] Heri 11:01:17 11:01:17 0516 [place] 2022-11-13 2022-11-13 Outpatient JIE CAMARILLO [id number] Jie 13:30:00 13:30:00 GLENNA earl 2022-11-13 2022-11-13 Outpatient SFA [facility] [id number] Heri 12:15:58 12:15:58 0515 [place] 2022-10-19 2022-10-19 Patient Shelby [facility] 1.2.840.114 [id number] Univers 00:00:00 00:00:00 Secure Ms Sita Chacon [employer] [id number] ity [facility] [id number] An[place]y as MATERNAL [id number] [facility] [address] [place] [address] 2022-10-17 2022-10-17 [facility] [id number] Univers 08:44:41 23:59:00 LUCINA ity of [facility] 2022-10-17 2022-10-17 [facility] 1.2.840.114 [id number] Univers 08:44:41 23:59:00 [facility] [id number] ity [facility] 4.2.7.2.686 [facility] [id number] [facility] 806 Branch (CLC) 2022-10-03 2022-10-03 Outpatient [facility] [id number] Univers 15:15:00 16:04:45 LUCINA ity [facility] 2022-10-03 2022-10-03 Office Sharyn [facility] 1.2.840.114 [id number] Univers 15:15:00 16:04:45 Visit Lucina Chacon [employer] [id number] i ty of [address]686 Anatoliy as MATERNAL [id number] [facility] [address] [place] [address] 2022-10-03 2022-10-03 Outpatient R WILLIAM, [facility] [id number] Univers 13:00:00 13:00:00 MIHIR ward [facility] 2022-07-28 2022-07-28 Outpatient R WILLIAM, [facility] [id number] Univers 08:15:00 08:15:00 MIHIR ward [facility] 2022-07-11 2022-07-11 [facility] [id number] Univers 13:30:00 14:07:31 MIHIR ward [facility] 2022-07-11 2022-07-11 Nurse Visit, [facility] Nurse [facility] 1.2 .840.114 [id number] Univers 13:30:00 14:07:31 Visit Mihir Thomas [employer] 350.1.13. 10 ity of [place] [id number] Anatoliy as MATERNAL [id number] [facility] & CHILD [address] [place] [address] 2022-07-11 2022-07-11 Orders Doctor HEENA 1.2.840.114 [id number] Univers 00:00:00 00:00:00 Only Unassigned, BERKLEY 350.1.13.10 ity of [place] [facility] 42.7.2.686 An[place]y as [id number] [address] 2022-07-10 2022-07-10 Telephone William [facility] 1.2.840.114 [id number] Univers 00:00:00 00:00:00 Mihir Mendez [employer] [id number] ity of [facility] 42.7.2.686 Anatoliy as MATERNAL [id number] [facility] & CHILD [address] [place] [address] 2022-07-03 2022-07-03 Outpatient [facility] [id number] Univers 13:30:00 13:30:00 MIHIR adrian o dave [facility] 2022-03-21 2022-03-21 Nurse Visit, Matildep Nurse [facility] 1.2 .840.114 [id number] Univers 13:30:00 13:45:25 Visit Anna Aguero [employer] 350.1.13.10 ity of REGIONAL 4.2.7.2.686 [place]y as MATERNAL [id number] [facility] [address] [place] [address] 2022-03-21 2022-03-21 Outpatient [facility] [id number] Univers 13:30:00 13:30:00 ANNA ward [facility] 2021-12-30 2021-12-30 Outpatient R [facility] [id number] Univers 13:00:00 13:00:00 ity of [facility] 2021-12-27 2021-12-27 Nurse Visit, Cammie Nurse [facility] 1.2 .840.114 [id number] Univers 13:30:00 13:47:23 Visit Anna Aguero [employer] 350.1.13.10 ity of REGIONAL 4.2.7.2.686 [place]y as MATERNAL [id number] [facility] & [address] 2021-12-27 2021-12-27 [facility] [id number] Univers 13:30:00 13:30:00 ANNA ward [facility] 2021-11-30 2021-11-30 Outpatient [facility] [id number] Univers 14:30:00 14:30:00 MIHIR adrian o [facility] 2021-10-04 2021-10-04 Nurse Visit, Meghnap Nurse [facility] 1.2 .840.114 [id number] Univers 13:30:00 13:57:52 Visit Anna Aguero [employer] 350.1.13.10 ity of [facility] 4.2.7.2.686 Anatoliy as MATERNAL [id number] [facility] & CHILD [address] [place] [address] 2021-10-04 2021-10-04 Outpatient R LACI [facility] [id number] Univers 13:30:00 13:30:00 ROSIVYNDA ity o f [facility] 2021-09-23 2021-09-23 Outpatient R [facility] [id number] Univers 13:00:00 13:00:00 ity [facility] 2021-09-23 2021-09-23 Outpatient R LACI [facility] [id number] Univers 13:00:00 13:00:00 CONRADNDA ity o dave [facility] 2021-08-31 2021-08-31 Outpatient R [facility] [id number] Univers 13:30:00 [facility]:30[facility] 2021-08-31 2021-08-31 Outpatient R LACI [facility] [id number] Univers 13:30:00 13:30:00 KIMBERLYA ity o dave [facility] 2021-08-31 2021-08-31 Nurse Visit, [facility] Nurse [facility] 1.2 .840.114 [id number] Univers 13:30:00 13:30:00 Visit Dianne Agueromikey R [employer] 350.1.13.10 ity [facility] 4.2.7.2.686 Anatoliy as MATERNAL [id number] Med ical & CHILD [address] [place] [address] 2021-07-01 2021-07-01 Outpatient R WILLIAM, [facility] [id number] Univers 13:15:00 14:10:58 MIHIR ity o f [facility] 2021-07-01 2021-07-01 Office William, [facility] [id number] [id number] Univers 13:15:00 14:10:58 Visit Mihir Mendez [employer] 350.1.13.10 ity [facility] 4.2.7.2.686 Anatoliy as MATERNAL [id number] [facility] ical & CHILD [address] [place] [address] 2021-07-01 2021-07-01 Outpatient R AKINKAITLYNN, [facility] [id number] Univers 09:00:00 09:00:00 MIHIR ity o f [facility] 2021-07-01 2021-07-01 Outpatient R WILLIAM [facility] [id number] Univers 09:00:00 09:00:00 MIHIR acosta [facility] 2021-06-29 2021-06-29 Outpatient R ELISEO, [facility] [id number] Univers 13:00:00 13:00:00 MARQUITA adrian [facility] 2021-06-29 2021-06-29 [facility] [id number] Univers 13:00:00 13:00:00 MARQUITA adrian [facility] 2021-06-28 2021-06-29 [facility] [id number] Univers 23:27:00 04:47:00 MARY adrian [facility] 2021-06-28 2021-06-29 [facility] 1.2.196.051 [id number] Univers 23:27:00 04:47:00 Mary HUMPHREYS 350.1.13.10 i ty of [place] 4.2.7.2.686 [facility] [id number] [address] 2021-06-28 2021-06-29 Emergency [facility] [id number] Univers 23:27:00 04:47:00 MARY adrian [facility] 2021-05-10 2021-05-10 Outpatient [facility] [id number] Univers 13:30:00 13:30:00 MARQUITA timo [facility] 2021-04-15 2021-04-15 Emergency Michael, [facility] 1.2.840.114 [id number] Univers 19:01:00 23:04:00 Brooklyn Humphreys 350.1.13.10 i ty of [place] 4.2.7.2.686 [facility] [id number] [address] 2021-04-15 2021-04-15 Emergency X MICHAEL, [facility] ERT [id number] Univers 19:01:00 23:04:00 BROOKLYN adrian [facility] 2021-04-06 2021-04-06 Nurse Visit, Jarocho-Rmchp Nurse [facility] 1.2 .840.114 [id number] Univers 13:20:16 13:45:56 Visit Anna Aguero [employer] 350.1.13.10 ity of REGIONAL 4.2.7.2.686 An[place]y as MATERNAL [id number] [facility] [address] [place] [address] 2021-04-06 2021-04-06 [facility] [id number] Univers 13:30:00 13:30:00 ANNA adrian o f [facility] 2021-01-13 2021-01-13 Outpatient R [facility] [id number] Univers 13:30:00 13:30:00 ity [facility] 2021-01-12 2021-01-12 [facility] 1.2 .840.114 [id number] Univers 12:58:10 13:14:44 Visit Mihir Thomas [employer] 350.1.13. 10 ity of REGIONAL 4.2.7.2.686 [place] as MATERNAL [id number] [facility] [address] 2021-01-12 2021-01-12 Outpatient R [facility] [id number] Univers 13:00:00 13:00:00 ity [facility] 2021-01-12 2021-01-12 Outpatient [facility] [id number] Univers 13:00:00 13:00:00 MIHIR adrian o f [facility] 2020-11-01 2020-11-01 Emergency [place] 1.2.840.114 [id number] Univers 22:05:00 22:06:[address] , [facility] 350.1.13.10 [place] [id number] [address] 2020-11-01 2020-11-01 Emergency [place] TRAU[facility] 1.2.840.114 [id number] 22:05:00 22:06:00 , Keshia CENTER 350.1.13.10 4.2.7.2.[id number] [facility] 2020-11-012020-11-01 Emergency [place] [facility] 1.2.840.114 [id number] Univers 17:05:00 20:46:00 Ayana Humphreys 350.1.13.10 i ty [place].2.[place] [id number] [address] 2020-11-01 2020-11-01 Emergency [place] [facility] 1.2.840.114 [id number] 17:05:00 20:46:00 Ayana Humphreys 350.1.13.10 [place] 4.2.7.2.686 [place] [id number] [facility] 2020-11-01 2020-11-01 Office Laci [facility] 1.2.840.114 [id number] Univers 13:58:16 14:28:58 Visit Anna Rodríguez [employer] 350.1.13.10 ity [facility] 4.2.7.2.686 Anatoliy as MATERNAL [id number] [facility] [address] [place] [address] 2020-11-01 2020-11-01 Office Laci [facility] 1.2.840.114 [id number] 13:58:16 14:28:58 Visit Anna Rodríguez [employer] 350.1.13.10 [facility] 4.2.7.2.686 MATERNAL [id number] & [address] 2020-11-01 2020-11-01 Outpatient R LACI [facility] [id number] Univers 14:00:00 14:00:00 ANNA adrian o f [facility] 2020-10-21 2020-10-21 Nurse Visit, Jarocho-Rmchp Nurse [facility] 1.2 .840.114 [id number] Univers 14:54:52 15:08:41 Visit Anna Aguero [employer] 350.1.13.10 ity [facility] 4.2.7.2.686 Anat[place]y as MATERNAL [id number] [facility] [address] [place] [address] 2020-10-21 2020-10-21 Outpatient R [facility] [id number] Univers 14:30:00 14:30:00 ity [facility] 2020-08-13 2020-08-13 Telephone [facility] 1.2.840.114 [id number] Univers 00:00:00 00:00:00 Mihir Mendez [employer] 350.1.13.10 ity of [facility] 4.2.7.2.686 Anatoliy as MATERNAL [id number] [facility] & CHILD [address] [place] [address] 2020-08-10 2020-08-10 Outpatient [facility] [id number] Univers 13:45:00 13:45:00 MIHIR adrian o f [facility] 2020-07-29 2020-07-29 Nurse Visit, [facility] Nurse [facility] 1.2 .840.114 [id number] Univers 14:20:34 14:34:34 Visit Anna Aguero [employer] 350.1.13.10 ity of [facility] 4.2.7.2.686 [place] as MATERNAL [id number] [address] 2020-07-29 2020-07-29 Outpatient R [facility] [id number] Univers 14:30:00 14:30:00 ity [facility] 2020-05-06 2020-05-06 [facility] [id number] Univers 15:32:18 16:10:31 Visit Marquita Jesus [employer] [id number] it y of [facility] [id number] Anatoliy as MATERNAL [phone] [facility] & [address] 2020-05-06 2020-05-06 [facility] [id number] Univers 15:30:00 15:30:00 MARQUITA adrian [facility] 2020-05-06 2020-05-06 Orders Doctor NAIK [id number] Univers 00:00:00 00:00:00 Only Unassigned, BERKLEY [id number] ity of [facility] [id number] Anatoliy as [id number] [address] 2020-02-11 2020-02-11 Outpatient R [facility] [id number] Univers 13:30:00 13:30:00 ity of [facility] 2019-11-19 2019-11-19 [facility] [id number] .[id number] Univers 13:54:25 14:01:32 Visit Aguero Diannemikey Rodríguez [employer] [id number] ity of [facility] [id number] Anatoliy as MATERNAL [id number] [facility] & CHILD [address] [place] [address] 2019-11-19 2019-11-19 Outpatient R [facility] [id number] Univers 13:30:00 13:30:00 ity of [facility] 2019-08-27 2019-08-27 [facility] 1.2 .[id number] Univers 13:46:00 14:04:52 Visit Aguero, Rosmikey Rodríguez [employer] [id number] ity of [facility] [id number] Anatoliy as MATERNAL [id number] [address] 2019-08-27 2019-08-27 [facility] [id number] Univers 13:30:00 13:30:00 ANNA adrian o f [facility] 2019-03-11 2019-03-11 [facility] [id number] Univers 14:03:33 14:50:27 Visit Marquita Jesus [employer] [id number] it y of [facility] [id number] Anatoliy as MATERNAL [id number] [address] 2019-03-11 2019-03-11 Orders Doctor HEENA [id number] Univers 00:00:00 00:00:00 Only Unassigned, BERKLEY [id number] ity of [place] [facility] [id number] Anatoliy as [phone] [address] Results Test Description Test Time Test Comments Results Result Comments Source SARS-CoV-2 RNA Resp Ql JESSICA+probe 2023-04-12 02:55:01 Test Item Value Reference Range Interpretation Comme nts Hospitalized? (test code = No 67404-5) ICU? (test code = 44265-5) No Symptomatic as defined by CDC? No (test code = 93872-9) Employed in Healthcare? (test No code = 42740-9) Resident in a congregate care No setting (including nursing homes, residential care for people with intellectual and developmental disabilities, psychiatric treatment facilities, group homes, board and care homes, homeless prison, foster care or other): (test code = 79319-6) ? (test code = No 38155-3) SARS-CoV-2 RNA Resp Ql NOT DETECTED Not Detected INTER PRETATION: No JESSICA+probe (test code = [place] [address]-7) SARS-CoV-2 Sintia navirus (COVID-19) were present in this patient's sample by this test. A no t detected result does not exclude the possibility of active infection with this virus due to other fa ctors that may affect the results such as a poorly col lected sample, viral t iters below the limit of de tection of the assay, and the infrequent poss ibility of inhibitors in t he sample. This result hafsa uld be interpreted in conjunction with clinical, radiographic, a nd other laboratory find ings and should not be u sed as the sole indicator of active infection with SARS-CoV-2 Coronavirus (CO VID-19). COMMENT: This [employer] Xpert Xpress SARS-CoV-2 real-time PCR test was developed, and its performance characteristics determined by the [facility] molecular diagnostic Laboratory and is acceptablefor patient testing. It has been approved for patient testing by the FDA under the Emergency Use Auth orization pathway. This laboratory is certified under federal CLIA regulations to perform this type of high complexity testing.[facility], 25 [id number] 05:32:08 Test Item Value Reference Range Interpretation Comments VITAMIN D, 25 56 NG/ML SEE BELOW EFFECTIVE 07/10/2022, [place] (test code PLEASE NOTE NE W METHODOLOGY = 4958) IS ELECTROCH EMILUMINESCENCE BINDING ASSAY. NOTE: 25-HYDROXYVITAM IN D ASSAY INCLUDES 25-HYD ROXYVITAMIN D2 AND D3. I NTERPRETIVE RANGES PED IATRIC (<17 YEARS) . . . . . . . . . . . NG/ML 20-100ADU LT: INSUFFICIENT . . . . . . . . . . . . . . NG/ML <20 SUBOP TIMAL . . . . . . . . . . . . . . . NG/ML 20-29 OPTIMAL . . . . . . . . . . . . . . . . . NG/ML 30-100 TSH, THIRD [id number] 05:31:07 Test Item Value Reference Range Interpretation Comments TSH, THIRD GENERATION (test code 0.891 UIU/ML 0.400-4.100 = 2821) COMPREHENSIVE METABOLIC [id number] 03:24:25 Test Item Value Reference Range Interpretation Comments GLUCOSE (test code = 96 MG/DL 70-99 2216) BUN (test code = 5 MG/DL 6-20 L 2207) CREATININE (test 0.47 MG/DL 0.60-1.30 L code = 2214) eGFR (2020 CKD-EPI) 126 >60 (test code = 21606) ML/MIN/1.73 CALC BUN/CREAT (test 11 RATIO 6-28 code = 2235) SODIUM (test code = 143 MEQ/L 721-656 4426) POTASSIUM (test code 4.1 MEQ/L 3.5-5.4 = 2228) CHLORIDE (test code 107 MEQ/L 95-107 = 2215) CARBON DIOXIDE (test 21 MEQ/L 19-31 code = 2206) CALCIUM (test code = 9.2 MG/DL 8.5-10.5 2208) PROTEIN, TOTAL (test 8.4 G/DL 6.1-8.3 H code = 2229) ALBUMIN (test code = 4.8 G/DL 3.5-5.2 2200) CALC GLOBULIN (test 3.6 G/DL 1.9-3.7 code = 2240) CALC A/G RATIO (test 1.3 RATIO 1.0-2.6 code = 2234) BILIRUBIN, TOTAL 1.6 MG/DL See_Comment H [Automated message] (test code = 2207) The syste m which generated this result transmit meghan reference range : <=1.2. The refe rence range was not u sed to interpret th is result as normal/abnormal . ALKALINE PHOSPHATASE 117 U/L 40-112 H (test code = 2204) AST (test code = 101 U/L 9-40 H 8) ALT (test code = 31 U/L 5-40 2218) LIPID [id number] 03:24:25 Test Item Value Reference Range Interpretation [...] MOREINFORMATION , SEE CLIENT ANNOUNCE MENT AT [email or web address] [email or web address] RATIO LDL/HDL 2.02 RATIO <3.22 UNLESS OTHERWISE (test code = 2238) INDICATED , ALL TESTING PERFOR[facility]. [address] [place] [id number] [place] [address] NICK DIRECTOR: GELY MOSQUEDA M.D. IA NUMBER [id number] CAP ACCREDITATION N O. [id number] CBC W/AUTO DIFF WITH [id number] 02:35:39 Test Item Value Reference Range Interpretation [...] RBCS 0.00 K/UL 0.00-0.11 (test code = 38782) POCT [id number] 13:40:00 Test Item Value Reference Range Interpretation Comments POCT PREG (test code = 1605) Negative On board controls acceptable Yes with C Line (test code = 3574) POCT PREG LOT # (test code = [id number] 3575) POCT PREG TEST DATE 04/05/2024 (test code = 3576) Lab Interpretation (test code = Normal 34317-0) [facility] [id number] 20:10:00 Test Item Value Reference Range Interpretation Comments POCT PREG (test code = 1605) Negative On board controls acceptable with C Yes Line (test code = 3574) POCT PREG LOT # (test code = 3575) POCT PREG TEST DATE (test code = 3576) [facility] [id number] 18:51:00 Test Item Value Reference Range Interpretation Comments POCT PREG (test code = 1605) Negative On board controls acceptable with C Yes Line (test code = 3574) POCT PREG LOT # (test code = 3575) POCT PREG TEST DATE (test code = 3576) [facility] [id number] 04:03:56 Test Item Value Reference Range Interpretation Comments GLUCOSE (test code = 101 MG/DL 70-99 H 2216) BUN (test code = 10 MG/DL 6-20 2207) CREATININE (test 0.75 MG/DL 0.60-1.30 code = 221) eGFR (2020 CKD-EPI) 106 >60 (test code = 59366) ML/MIN/1.73 CALC BUN/CREAT (test 13 RATIO 6-28 code = 223) SODIUM (test code = 141 MEQ/L 208-656 8933) POTASSIUM (test code 4.1 MEQ/L 3.5-5.4 = 2227) CHLORIDE (test code 103 MEQ/L 95-107 = 2214) CARBON DIOXIDE (test 24 MEQ/L 19-31 code = 220) CALCIUM (test code = 10.2 MG/DL 8.5-10.5 2208) PROTEIN, TOTAL (test 7.7 G/DL 6.1-8.3 code = 222) ALBUMIN (test code = 4.7 G/DL 3.5-5.2 2200) CALC GLOBULIN (test 3.0 G/DL 1.9-3.7 code = 2240) CALC A/G RATIO (test 1.6 RATIO 1.0-2.6 code = 2234) BILIRUBIN, TOTAL 1.0 MG/DL See_Comment [Automated message] (test code = 2207) The syste [employer] which generated this result transmit meghan reference range : <=1.2. The refe rence range was not u sed to interpret th is result as normal/abnormal . ALKALINE PHOSPHATASE 149 U/L 40-114 H (test code = 2204) AST (test code = 398 U/L 9-40 H 2217) ALT (test code = 329 U/L 5-40 H 2218) HEPATITIS PANEL, [id number] 03:45:56 Test Item Value Reference Range Interpretation Comments HEPATITIS A IgM (test NON-REACTIVE NON-REACTIVE code = 79673) HEPATITIS B CORE IgM NON-REACTIVE NON-REACTIVE (test code = 4644) HEPATITIS B SURF AG NON-REACTIVE NON-REACTIVE (test code = 2739) HEPATITIS C ANTIBODY NON-REACTIVE NON-REACTIVE (test code = 4675) INTERPRETATION (NOTE) Hepatitis A HEPATITIS A: (test serology shows no code = 2552) evidence of acu te hepatitis A. INTERPRETATION (NOTE) Hepatitis B HEPATITIS B: (test serology shows no code = 98297) evidence of ac andrés hepatitis B and no indication of exposure to hepatitis B vir us in the previous si xto eight months. INTERPRETATION (NOTE) Hepatitis C HEPATITIS C: (test serology shows no code = 29887) evidence of ex posure to hepatitisC v irus at this time. I t can take up to 12 m onths after exposure tothe hepatitis C vir us for antibodies to become detectab le in the blood in ce rtain patients. UNLES S OTHERWISE INDIC ATED, ALL TESTING PERFORMED [facility]. [address] [facility] [place] [address] [facility] DIRECTOR: Pricila SHAIKH NUMBER [id number] [facility] [place]. [id number]
[2023-04-18] MEDS ORDERED: NA CHLORIDE 0.9% 1,000 ML ONE ×2 (20:51→22:23)
[2023-04-18 20:59] LABS: Absolute Lymphocytes (CBC) 3.4 K/uL (0.7-4.9); Hematocrit 26.4 % (36.0-45.0); MCV 105.1 fL (80-100); MPV 7.2 fL (7.6-11.3); Platelets 192 thou/uL (152-406); RBC Red Blood Cell Count 2.51 M/uL (3.86-4.86)
[2023-04-18 21:03] LABS: Protime INR 1.44
[2023-04-18 21:15] LABS: Albumin 3.3 g/dL (3.4-5.0); Bilirubin Total 1.3 mg/dL (0.2-1.0); Potassium 3.7 mEq/L (3.5-5.1); Protein, Total 6.9 g/dL (6.4-8.2)
--- NOTE | 2023-04-18 21:40 | RAD REPORT ---
EXAM DESCRIPTION: CT - CTHCSPWOC - 04/18/2023 9:03 pm CLINICAL HISTORY: SYNCOPE COMPARISON: Head C Spine Mpr Wo Con dated 11/06/2019 TECHNIQUE: Axial thin cut noncontrast CT images of the head were obtained. Axial thin cut noncontrast CT images of the cervical spine were obtained. Multiplanar reformatted images were generated and reviewed. All CT scans are performed using dose optimization technique as appropriate and may include automated exposure control or mA/KV adjustment according to patient size. FINDINGS: CT HEAD WITHOUT CONTRAST: No acute hemorrhage, hydrocephalus or extra-axial collection is identified.No areas of brain edema or midline shift. The paranasal sinuses and mastoids are clear.The calvarium is intact. CT CERVICAL SPINE WITHOUT CONTRAST: No fracture or subluxation. Straightening of normal cervical lordosis which may be positional or seco ndary to muscle spasm. No prevertebral soft tissues swelling is identified. IMPRESSION: No acute traumatic intracranial or cervical spine findings.
--- NOTE | 2023-04-18 21:53 | RAD REPORT ---
EXAM DESCRIPTION: CT - Abdomen Pelvis W Contrast - 04/18/2023 9:04 pm CLINICAL HISTORY: Abd pain;Abdominal distention COMPARISON: Abdomen Pelvis W Contrast dated 08/25/2022; Abdomen Pelvis W Contrast dated 09/26/2021 ; Abdomen Pelvis W Contrast dated 01/02/2021; Abdomen Pelvis W Contrast dated 08/01/2020; Head C Spi ne Cap Wo Con dated 01/30/2023 TECHNIQUE: Thin cut axial CT imaging of the abdomen and pelvis was performed following intravenous a dministration of 100 mL Isovue 300. Multiplanar reformats were generated and reviewed. All CT scans are performed using dose optimization technique as appropriate and may include automated exposure control or mA/KV adjustment according to patient size. FINDINGS: No suspicious findings in the lung bases apart from dependent subsegmental atelectasis. The liver, spleen, adrenal glands, and pancreas show no suspicious findings. Gallbladder was surgical ly removed. Heterogeneous mildly hyperdense hematoma adjacent to the cholecystectomy clips. Multiple foci of active contrast extravasation extending more anteriorly and along the undersurface of the caitlin er, see axial images 34 through 39 of series 201. Diffuse moderate hemoperitoneum, with some lobulated hyperdense components in the perihepatic space, and layering fluid in the pelvis. The largest suspected hematoma component just below the inferior ri ght liver lobe margin measures 6.5 x 4.8 cm. Symmetric renal function is seen with no hydronephrosis or suspicious renal mass. No dilated bowel loops or bowel wall thickening. No hernia, mass or bulky lymphadenopathy. Evidence of recent laparotomy. Few locules of gas anteriorly within the peritoneal cavity suggestive of sequelae of recent laparoscopy. Small hematoma along the left lower abdominal wall port site measu ring 2.6 x 1.1 cm. Incidentally noted left ovarian 2.1 cm cyst. The urinary bladder is without signif icant finding. No suspicious bony findings. IMPRESSION: Sequelae of recent laparoscopic cholecystectomy. Diffuse moderate hemoperitoneum is pres ent, with active contrast extravasation seen extending anteriorly from the surgical bed and along the undersurface of the right liver lobe. Small hematoma along the left lower abdominal wall port site, measuring up to 2.6 cm. Other findings as above. The findings were communicated to Stephie Huffman on 04/18/2023 at 21:42 hours.
--- NOTE | 2023-04-18 22:02 | ER ---
Nurse's Notes [facility] Name: Sylvia Cruz Age: 38 yrs Sex: Female : 1985 Arrival Date: 04/18/2023 Time: 20:30 Bed 16 Private MD: Diagnosis: hemoperitoneum s/p laparoscopic cholecystectomy;Hypovolemic shock Presentation: 04/18 20:41 Chief complaint: Patient states: FELT DIZZY WHILE STANDING AND FAINTED. EMS states: PT rv FELL AT HOME, HITTING HEAD ON HARD WOOD FLOOR, +LOC, COMPLAINING OF PAIN ON THE NECK AND ABD PAIN. RECENT GALL BLADDER SURGERY. RECENT ADMISSION FOR ALCOHOL DETOX. BLEEDING ON THE SURGICAL WOUND, RUQ, CONTROLLED. HYPOTENSIVE. AAOX4. Coronavirus screen: At this time, the client does not indicate any symptoms associated with coronavirus-19. Ebola Screen: No symptoms or risks identified at this time. Initial Sepsis Screen: Does the patient meet any 2 criteria? No. Patient's initial sepsis screen is negative. Does the patient have a suspected source of infection? No. Patient's initial sepsis screen is negative. Risk Assessment: Do you want to hurt yourself or someone else? Patient reports no desire to harm self or others. Onset of symptoms was April 18, 2023. 20:41 Method Of Arrival: EMS: [facility] rv 20:41 Acuity: BONITA 2 rv Triage Assessment: 20:44 General: Appears uncomfortable, Behavior is calm, cooperative. Pain: Complains of pain rv in NECK, ABD. Neuro: Level of Consciousness is awake, alert, obeys commands, Oriented to person, place, time, situation. Cardiovascular: Capillary refill < 3 seconds Patient's skin is warm and dry. Respiratory: Airway is patent Respiratory effort is even, unlabored. GI: Abdomen is distended. Derm: POST SURGICAL WOUNDS ON THE ABD AREA. Historical: - PMHx: 20:44 Alcoholism; Bipolar disorder; cirrhosis of liver; Depression; Hypertension; rv - PSHx: 20:44 Sternum Reconstruction; Cholecystectomy; rv - Immunization history:: Adult Immunizations up to date. - Social history:: Smoking status: Patient/guardian denies using tobacco, but has a distant history of tobacco abuse. Screenin:45 [facility] ED Fall Risk Assessment (Adult) History of falling in the last 3 months, rv including since admission Yes- single mechanical fall (1 pt) Confusion or Disorientation No (0 pts) Intoxicated or Sedated No (0 pts) Impaired Gait Yes (1 pt) Altered Elimination No (0 pt) Score/Fall Risk Level 3 or more points = High Risk Oriented to surroundings, Maintained a safe environment, Educated pt \T\ family on fall prevention, incl call for assistance when getting out of bed, Assessed \T\ reinforced patient's understanding of fall precautions, Provided non-skid footwear, Hourly rounding (assess needs \T\ fall precautionary measures) done, Used ambulatory aids as needed (educated on \T\ assisted with), Used gait belt as appropriate Implemented a Fall Risk Plan of Care, Apply high fall risk patient identification: yellow non skid footwear/ fall signage, Placed fall mat w/ non beveled edge next to bed, Activated bed/chair alarm, Remained w/in arm's length of patient and in sight while toileting, Offered frequent toileting (1:1 observation), Remained with patient while ambulating. Abuse screen: Denies threats or abuse. Denies injuries from another. Nutritional screening: No deficits noted. Tuberculosis screening: No symptoms or risk factors identified. Assessment: 20:46 Reassessment: SEE TRIAGE NOTES. rv Vital Signs: 20:41 BP 70 / 55; Pulse 88; Resp 18; Temp 98.2; Pulse Ox 100% ; Weight 58.5 kg; Height 5 ft. rv 2 in. ; 21:27 BP 103 / 67; Pulse 105; Resp 18; Pulse Ox 100% on R/A; rv 22:00 BP 67 / 40; Pulse 90; Resp 18 S; Pulse Ox 100% on R/A; as6 22:15 BP 82 / 44; Pulse 90; Resp 20 S; Pulse Ox 100% on R/A; as6 22:30 BP 101 / 70; Pulse 99; Resp 22 S; Pulse Ox 100% on R/A; as6 22:45 BP 87 / 53; Pulse 97; Resp 20 S; Pulse Ox 100% on R/A; as6 23:00 BP 79 / 50; Pulse 93; Resp 15 S; Pulse Ox 100% on R/A; as6 23:15 BP 77 / 50; Pulse 92; Resp 19 S; Pulse Ox 100% on R/A; as6 23:30 BP 90 / 57; Pulse 92; Resp 18 S; Pulse Ox 100% on R/A; as6 23:45 BP 96 / 66; Pulse 91; Resp 19; Temp 98.4; Pulse Ox 100% on 2 lpm NC; rv 20:41 Body Mass Index 23.59 (58.50 kg, 157.48 cm) rv Garrison Coma Score: 21:27 Eye Response: spontaneous(4). Motor Response: obeys commands(6). Verbal Response: rv oriented(5). Total: 15. 23:45 Eye Response: spontaneous(4). Motor Response: obeys commands(6). Verbal Response: rv oriented(5). Total: 15. ED Course: 20:33 Patient arrived in ED. rv1 20:34 Otto Olvera MD is Attending Physician. ec2 20:38 Stephie Huffman PA-C is PHCP. sb4 20:40 Garrett Shaw, SARAHI is Primary Nurse. rv 20:44 Triage completed. rv 20:44 Arm band placed on right wrist. rv 20:45 Patient has correct armband on for positive identification. Client placed on continuous rv cardiac and pulse oximetry monitoring. NIBP monitoring applied. lunchroom monitor on. 20:45 Inserted saline lock: 20 gauge in left antecubital area, using aseptic technique. Blood rv collected. 21:05 Head C Spine MPR Wo Con CT In Process Unspecified. EDMS 21:05 CT Abd/Pelvis - IV Contrast Only In Process Unspecified. EDMS 22:02 Initiated transfer with Kathia at [facility], was told they are at MICU saturation until rv1 2am, attempted [facility] but they declined due to capacity. Kathia is attempting to reach the surgeon who did the pts surgery to consult with Stephie NIETO for further evaluation of pt. 22:28 Inserted saline lock: 20 gauge in right antecubital area, using aseptic technique. rv Inserted saline lock: 20 gauge in left wrist, using aseptic technique. 22:49 Pt accepted to [facility] ER by Dr. Meneses. rv1 04/19 00:04 No provider procedures requiring assistance completed. Patient transferred, IV remains rv in place. Administered Medications: 04/18 20:46 Drug: NS 0.9% IV (30 ml/kg) 30 ml/kg IV at bolus once; Sepsis Protocol Route: IV; Rate: rv bolus; Site: left antecubital; 04/19 00:00 Follow up: IV Status: Completed infusion; IV Intake: 1700ml rv 00:00 Not Given (not appropriate at this timee): fentanyl (pf)25 mcg IVP once rv Medication: 04/18 20:45 VIS not applicable for this client. rv 04/19 00:03 Blood products: PRBCs X 2 units given. FFP X 1 unit given. See transfusion record. rv Intake: 00:00 IV: 1700ml; Total: 1700ml. rv Outcome: 04/18 22:01 ER care complete, transfer ordered by MD. [email or web address] 04/19 00:04 Transferred by ground EMS to other acute care facility: [facility]. Note: REPORT GIVEN rv TO ANDI MCCLAIN TRIAGE RUBENS KRER Condition: stable Instructed on the need for admit, 00:04 Patient left the ED. rv Signatures: Dispatcher [employer] Garrett Jacob RN RN rv Jesús Trejo RN RN asStephie Liu PA-C PALuiza Coelho rv1 Otto Olvera MD MD ec2
--- NOTE | 2023-04-18 22:02 | EDPHYS ---
Physician Documentation [facility] Name: Sylvia Cruz Age: 38 yrs Sex: Female : 1985 Arrival Date: 04/18/2023 Time: 20:30 Bed 16 Private MD: ED Physician Otto Olvera HPI: 04/18 22:10 This 38 yrs old Female presents to ER via EMS with complaints of abdominal pain, fall. sb4 22:10 The patient presents with abdominal pain in the right upper quadrant. sb4 22:19 Patient presents via EMS status post fall/fainting episode. She states that she was sb4 going to get a glass of water when she fainted and fell on her side and head. She states that she had a laparoscopic cholecystectomy yesterday at [facility] and was discharged this morning. States that one of her stitches came out while she fell. She is complaining of head pain, neck pain, and generalized abdominal pain. She denies any nausea or vomiting. Historical: - PMHx: 20:44 Alcoholism; Bipolar disorder; cirrhosis of liver; Depression; Hypertension; rv - PSHx: 20:44 Sternum Reconstruction; Cholecystectomy; rv - Immunization history:: Adult Immunizations up to date. - Social history:: Smoking status: Patient/guardian denies using tobacco, but has a distant history of tobacco abuse. ROS: 22:19 Constitutional: Negative for fever, chills, and weight loss, sb4 22:19 Abdomen/GI: Positive for abdominal pain, 22:19 Neuro: Positive for headache, syncope, 22:19 All other systems are negative, Exam: 22:19 Head/Face: Normocephalic, atraumatic. Eyes: Extra-ocular motions intact. Periorbital sb4 areas with no swelling, redness, or edema. Cardiovascular: Regular rate and rhythm with a normal S1 and S2. Respiratory: Lungs have equal breath sounds bilaterally, clear to auscultation and percussion. No rales, rhonchi or wheezes noted. No increased work of breathing, no retractions or nasal flaring. MS/ Extremity: Pulses equal, no cyanosis. Neurovascular intact. Full, normal range of motion. Neuro: Awake and alert, GCS 15, oriented to person, place, time, and situation. Motor strength 5/5 in all extremities. Sensory grossly intact. 22:19 Constitutional: The patient appears awake, lethargic, 22:19 ENT: Mouth: Lips: dry, Oral mucosa: dry, 22:19 Abdomen/GI: Inspection: distension, that is mild, Palpation: moderate abdominal tenderness, in the right upper quadrant, 22:19 Skin: bruising noted along mid-left lower quadrant. laparoscopic incision sites covered with steri strips. periumbilcal strip removed, clot removed, no active bleeding, no suture located. Vital Signs: 20:41 BP 70 / 55; Pulse 88; Resp 18; Temp 98.2; Pulse Ox 100% ; Weight 58.5 kg; Height 5 ft. rv 2 in. ; 21:27 BP 103 / 67; Pulse 105; Resp 18; Pulse Ox 100% on R/A; rv 22:00 BP 67 / 40; Pulse 90; Resp 18 S; Pulse Ox 100% on R/A; as6 22:15 BP 82 / 44; Pulse 90; Resp 20 S; Pulse Ox 100% on R/A; as6 22:30 BP 101 / 70; Pulse 99; Resp 22 S; Pulse Ox 100% on R/A; as6 22:45 BP 87 / 53; Pulse 97; Resp 20 S; Pulse Ox 100% on R/A; as6 23:00 BP 79 / 50; Pulse 93; Resp 15 S; Pulse Ox 100% on R/A; as6 23:15 BP 77 / 50; Pulse 92; Resp 19 S; Pulse Ox 100% on R/A; as6 23:30 BP 90 / 57; Pulse 92; Resp 18 S; Pulse Ox 100% on R/A; as6 23:45 BP 96 / 66; Pulse 91; Resp 19; Temp 98.4; Pulse Ox 100% on 2 lpm NC; rv 20:41 Body Mass Index 23.59 (58.50 kg, 157.48 cm) rv [place] Coma Score: 21:27 Eye Response: spontaneous(4). Motor Response: obeys commands(6). Verbal Response: rv oriented(5). Total: 15. 23:45 Eye Response: spontaneous(4). Motor Response: obeys commands(6). Verbal Response: rv oriented(5). Total: 15. MDM: 20:34 Patient medically screened. ec2 22:19 Differential diagnosis: gastritis, GI Bleed, non-specific abd pain, pancreatitis, Perf. sb4 Duodenal Ulcer, Perf. Gastric Ulcer. 23:39 Data reviewed: vital signs, nurses notes, lab test result(s), EKG, radiologic studies, sb4 I have discussed the patient's presentation/case with the attending Emergency Department Physician; and as a result, I will administer blood or plasma, uncrossmatched, FFP, platelets, packed red blood cells. Consideration of Admission/Observation Patient was admitted/placed on observation. Management of patient was discussed with the following: Imaging Science Professor: Spoke with [facility] general surgery team, Dr. Meneses, who previously operated on this patient. He accepts patient for transfer. Requested PRBCs, platelets, and FFP. We do not have platelets readily available, will take 2 hours to get here from [place]. Will move forward with the PRBCs and FFP and inform surgical team of this. They do not have a helipad so we will transfer via ground ambulance, emergently. Discussion of test interpretation with radiology: I had a discussion with radiology regarding a test interpretation. Dr. Tijerina regarding the results of the CT, hemoperitoneum secondary to recent cholecystectomy. Historians other than the Patient: Parent: Mother. Post IV fluid administration reassessment for Sepsis: Client prescribed 30 mL/kg IVF. Sepsis focused reassessment complete. Counseling: I had a detailed discussion with the patient and/or guardian regarding the historical points, exam findings, and any diagnostic results supporting the discharge/admit diagnosis, lab results, radiology results, the need to transfer to another facility, for higher level of care. 04/18 22:28 Order name: ABO/RH typing [facility] 04/18 22:28 Order name: Antibody Screen [facility] 04/18 20:38 Order name: Blood Culture Adult (2) [facility] 04/18 20:38 Order name: CBC with Diff; Complete Time: 22:26 sb4 04/18 20:38 Order name: CMP; Complete Time: 21:16 sb4 04/18 20:38 Order name: Lactate w/ 2H reflex if indic.; Complete Time: 21:36 sb4 04/18 20:38 Order name: Protime (+inr); Complete Time: 21:08 sb4 04/18 20:38 Order name: Ptt, Activated; Complete Time: 21:08 [facility] 04/18 21:04 Order name: CBC Smear Scan; Complete Time: 22:26 EDMS 04/18 21:51 Order name: CREATININE WHOLE BLOOD; Complete Time: 21:54 EDMS 04/18 22:28 Order name: Packed RBC Leukored EDMS 04/18 23:25 Order name: FP24 Apheresis Thawed-3 EDMS 04/18 20:38 Order name: Head C Spine MPR Wo Con CT; Complete Time: 21:42 sb4 04/18 20:53 Order name: CT Abd/Pelvis - IV Contrast Only; Complete Time: 21:54 sb4 04/18 20:38 Order name: EKG; Complete Time: 20:39 sb4 04/18 20:38 Order name: Accucheck; Complete Time: 20:47 sb4 04/18 20:38 Order name: Cardiac monitoring; Complete Time: 20:47 sb4 04/18 20:38 Order name: EKG - Nurse/Tech; Complete Time: 20:47 sb4 04/18 20:38 Order name: IV Saline Lock - Large Bore; Complete Time: 20:47 sb4 04/18 20:38 Order name: Labs collected and sent; Complete Time: 20:47 sb4 04/18 20:38 Order name: O2 Per Protocol; Complete Time: 20:47 sb4 04/18 20:38 Order name: O2 Sat Monitoring; Complete Time: 20:47 sb4 04/18 20:38 Order name: Vital Signs; Complete Time: 20:47 sb4 04/18 22:02 Order name: NPO; Complete Time: 22:06 sb4 04/18 22:18 Order name: Transfuse; Complete Time: 22:20 sb4 EC:39 Rate is 87 beats/min. Rhythm is regular, Sinus Rhythm. [place] interval is shortened at 106 sb4 msec. QRS interval is normal at 76 msec. QT interval is prolonged at 490 msec. Clinical impression: NSR w/ Non-specific ST/T Changes. Interpreted by me. Reviewed by me. Administered Medications: 20:46 Drug: NS 0.9% IV (30 ml/kg) 30 ml/kg IV at bolus once; Sepsis Protocol Route: IV; Rate: rv bolus; Site: left antecubital; 04/19 00:00 Follow up: IV Status: Completed infusion; IV Intake: 1700ml rv 00:00 Not Given (not appropriate at this timee): fentanyl (pf)25 mcg IVP once rv Disposition Summary: 04/18/23 22:01 Transfer Ordered Notes: Transfer Location: [facility] sb4 Reason: Higher level of care sb4 Condition: Serious sb4 Problem: new sb4 Symptoms: are unchanged sb4 Accepting Physician: Dr. Meneses(04/19/23 00:04) rv Diagnosis - hemoperitoneum s/p laproscopic cholecystectomy sb4 - hemoperitoneum s/p laparoscopic cholecystectomy sb4 - Hypovolemic shock sb4 Forms: - Medication Reconciliation Form sb4 - SBAR form sb4 Critical care time excluding procedures: 04/18 23:39 Critical care time: Bedside Care: 10 minutes, Consultation: 5 minutes, Family sb4 Intervention: 5 minutes. Total time: 20 minutes Addendum: 04/20/2023 02:00 I agree with the assessment and plan of care. e c2 Signatures: Dispatcher [employer] Garrett Jacob RN RN rv Stephie Huffman PA-C PA-C sb4 Otto Olvera MD MD ec2 Corrections: (The following items were deleted from the chart) 04/18 23:09 22:01 gen surgery sb4 sb4 23:09 23:09 gen surgery sb4 sb4 04/19 00:01 04/18 23:09 gen surgery sb4 sb4 04/19 00:04 00:01 Dr. Meneses sb4 rv
[2023-04-18 22:19] LABS: Blood Morphology Comment NOTED (NOT SEEN); Macrocytosis 1+; Platelet Estimate ADEQ; White Blood Cell Scan OK (OK)
[2023-04-18] MEDS ORDERED: NA CHLORIDE 0.9% 250 ML ONE (22:36)
[2023-04-19 01:48] VITALS: O2SAT 100
[2023-04-19 01:58] VITALS: BP 96/66; TEMP 98.4
--- NOTE | 2023-04-19 13:37 | EKG ---
Test Date: 2023-04-18 Test Time: 20:48:38 Paper Sheeter: RUDOLPH MEASUREMENT RESULTS: Intervals: Rate: 87 ND: 106 QRSD: 76 QT: 408 QTc: 490 [place]: P: 76 ND: 106 QRS: 34 T: 76 INTERPRETIVE STATEMENTS: Sinus rhythm with short ND Nonspecific ST and T wave abnormality Prolonged QT Abnormal ECG Compared to ECG 03/21/2023 19:39:00 Short ND interval now present Prolonged QT interval now present Left ventricular hypertrophy no longer present ST (T wave) deviation still present Electronically Signed On 04-19-23 13:36:14 CDT by Wilmer Guzman
== END 2023-04-19 00:04 | disposition short-term general hospital (02) ==
LOC: ER 20:30
DX: T81.19XA Other postprocedural shock, initial encounter (principal); K66.1 Hemoperitoneum; Z90.49 Acquired absence of other specified parts of digestive tract
CPT/HCPCS: 36415; 36430; 70450; 72125; 74177; 80053; 82565; 83605; 85025; 85610; 85730; 86850; 86900; 86901; 86920; 86927; 87040; 93005; 96365; 96366; 99285; J7030; J7050; P9016; P9017; Q9967

== ENCOUNTER 2023-06-13 10:20 | Emergency (ER) | payer OTHER, SELFPAY ==
[2023-06-13] MEDS ORDERED: KETOROLAC 30 MG/ML INJ ONE (10:59)
[2023-06-13] MEDS ORDERED: NA CHLORIDE 0.9% 1,000 ML ONE (10:59)
[2023-06-13 11:02] LABS: Absolute Lymphocytes (CBC) 4.4 K/uL (0.7-4.9); Hematocrit 40.2 % (36.0-45.0); MCV 96.9 fL (80-100); MPV 5.8 fL (7.6-11.3); Platelets 179 thou/uL (152-406); RBC Red Blood Cell Count 4.15 M/uL (3.86-4.86)
[2023-06-13 11:19] LABS: Albumin 3.5 g/dL (3.4-5.0); Potassium 3.7 mEq/L (3.5-5.1); Protein, Total 8.5 g/dL (6.4-8.2)
[2023-06-13] MEDS ORDERED: MORPHINE 4 MG/ML SYR ONE (12:36)
--- NOTE | 2023-06-13 12:45 | RAD REPORT ---
EXAM DESCRIPTION: CTAbdomen Pelvis W Contrast - 06/13/2023 12:33 pm CLINICAL HISTORY: Abdominal pain. ABD PAIN COMPARISON: Abdomen Pelvis W Contrast dated 04/18/2023; Abdomen Pelvis W Contrast dated 3; Abdomen Pelvis W Contrast dated 09/26/2021; Abdomen Pelvis W Contrast dated 01/02/2021 TECHNIQUE: Biphasic CT imaging of the abdomen and pelvis was performed with 100 ml non-ionic IV cont rast. All CT scans are performed using dose optimization technique as appropriate and may include automated exposure control or mA/KV adjustment according to patient size. FINDINGS: Mild linear atelectasis is noted in the left lung base.Trace left pleural effusion. Mildly heterogenous appearance to the liver parenchyma noted. No biliary dilatation. Cholecystectomy clips. The spleen is slightly prominent. The adrenal glands, pancreas and kidneys are within normal limits. Mild free fluid is seen in the abdomen pelvis, however decreased mildly since 02/16/2023 in volume. T he fluid is seen to FLAIR in the pelvis as well. There is no evidence of a bowel obstruction. The pablo endix is normal. No free air or abscess. No evidence of significant lymphadenopathy. No suspicious bony findings. IMPRESSION: Mild free fluid in abdomen pelvis has decreased mildly since 04/18/2023 prior study. Mildly heterogenous liver parenchymal pattern no evidence of biliary dilatation. Trace left pleural effusion with atelectasis lung base.
--- NOTE | 2023-06-13 13:03 | ER ---
Nurse's Notes [facility] Name: Sylvia Cruz Age: 38 yrs Sex: Female : 1985 Arrival Date: 06/13/2023 Time: 10:20 Bed 16 Private MD: Diagnosis: Abdominal pain, Generalized Presentation: 06/13 10:32 Chief complaint: Patient states: ETOH for past two days. Severe abdominal pain with ll1 N/V/D. Had abdominal SX 1 month ago at [facility]. Coronavirus screen: Vaccine status: Patient reports receiving the 2nd dose of the covid vaccine. Client denies travel out of the [place] in the last 14 days. diarrhea, fatigue, nausea, vomiting. Client presents with at least one sign or symptom that may indicate coronavirus-19. Standard/surgical mask placed on the client. Ebola Screen: Patient denies travel to an Ebola-affected area in the 21 days before illness onset. Initial Sepsis Screen: Does the patient meet any 2 criteria? No. Patient's initial sepsis screen is negative. Does the patient have a suspected source of infection? Yes: Acute abdominal pain. Risk Assessment: Do you want to hurt yourself or someone else? Patient reports no desire to harm self or others. Onset of symptoms was June 12, 2023. 10:32 Method Of Arrival: Wheelchair ll1 10:32 Acuity: BONITA 3 ll1 Triage Assessment: 10:34 General: Appears uncomfortable, ill, Behavior is cooperative, appropriate for age, ll1 listless. Pain: Complains of pain in abdomen Pain currently is 9 out of 10 on a pain scale. Quality of pain is described as aching, throbbing. Neuro: Reports weakness. GI: Reports lower abdominal pain, upper abdominal pain, cramping, diarrhea, nausea, vomiting. Historical: - Allergies: 10:33 No Known Allergies; ll1 - PMHx: 10:33 Alcoholism; Bipolar disorder; cirrhosis of liver; Depression; Hypertension; ll1 - PSHx: 10:33 Cholecystectomy; Sternum Reconstruction; ll1 - Immunization history:: Adult Immunizations up to date. - Social history:: Smoking status: Patient reports the use of cigarette tobacco products, denies chronic smoking, but will smoke occasionally. Screenin:39 [facility] ED Fall Risk Assessment (Adult) History of falling in the last 3 months, db including since admission No falls in past 3 months (0 pts) Confusion or Disorientation No (0 pts) Intoxicated or Sedated No (0 pts) Impaired Gait No (0 pts) Mobility Assist Device Used No (0 pt) Altered Elimination No (0 pt) Score/Fall Risk Level 0 - 2 = Low Risk Oriented to surroundings, Maintained a safe environment. Abuse screen: Denies threats or abuse. Denies injuries from another. Nutritional screening: No deficits noted. Tuberculosis screening: No symptoms or risk factors identified. Assessment: 10:40 Reassessment: Patient appears in no apparent distress at this time. Patient and/or db family updated on plan of care and expected duration. Pain level reassessed. Patient is alert, oriented x 3, equal unlabored respirations, skin warm/dry/pink. PATIENT WITH ABDOMINAL PAIN AND HX OF CIRRHOSIS OF LIVER. STATES HAS BEEN 4 MONTHS SOBER AND STARTED DRINKING ALCOHOL AGAIN TODAY. General: Appears in no apparent distress. comfortable, Behavior is calm, cooperative. Pain: Complains of pain in abdomen. Neuro: Level of Consciousness is awake, alert, obeys commands, Oriented to person, place, time, situation. Respiratory: Airway is patent Respiratory effort is even, unlabored, Respiratory pattern is regular, symmetrical. GI: Abdomen is distended, noted to have ascites, Reports lower abdominal pain, upper abdominal pain. 11:05 Reassessment: PATIENT URINATED IN RESTROOM. STATES WAS UNABLE TO URINATE IN CUP. db 11:38 Reassessment: Patient appears in no apparent distress at this time. Patient and/or db family updated on plan of care and expected duration. Pain level reassessed. Patient is alert, oriented x 3, equal unlabored respirations, skin warm/dry/pink. 12:20 General: Appears uncomfortable, Behavior is cooperative, agitated, anxious. Pain: db Complains of pain in abdomen Pain currently is 10 out of 10 on a pain scale. 12:27 Reassessment: Patient appears in no apparent distress at this time. PATIENT TO CT. db 13:40 Reassessment: Patient appears in no apparent distress at this time. Patient and/or db family updated on plan of care and expected duration. Pain level reassessed. Patient is alert, oriented x 3, equal unlabored respirations, skin warm/dry/pink. General: Appears in no apparent distress. comfortable, Behavior is calm, cooperative. Vital Signs: 10:32 BP 128 / 98; Pulse 105; Resp 18; Temp 98.1; Pain 9/10; ll1 10:39 BP 127 / 94; Pulse 107; Resp 18; Pulse Ox 99% on R/A; db 11:00 BP 115 / 82; Pulse 102; Resp 16; Pulse Ox 100% on R/A; db 12:00 BP 114 / 84; Pulse 97; Resp 18; Pulse Ox 100% on R/A; db 13:15 BP 122 / 89; Pulse 98; Resp 18; Pulse Ox 99% on R/A; db 10:32 Pain Scale: Adult ll1 ED Course: 10:24 Patient arrived in ED. mg5 10:29 Wesley Macdonald DO is Attending Physician. ms3 10:33 Triage completed. ll1 10:34 Arm band placed on Patient placed in an exam room, on a stretcher. ll1 10:39 Chela Davis, RN is Primary Nurse. db 10:57 CBC with Diff Sent. ds4 10:57 CMP Sent. ds4 10:57 Lipase Sent. ds4 10:57 Inserted saline lock: 22 gauge in left forearm, using aseptic technique. Blood ds4 collected. 11:39 Patient has correct armband on for positive identification. Bed in low position. Call db light in reach. Side rails up X 1. Pulse ox on. NIBP on. Warm blanket given. 12:35 CT Abd/Pelvis - IV Contrast Only In Process Unspecified. EDMS 13:01 Pranav Crawford DO is Referral Physician. ms3 13:40 Provided Education on: DISCHARGE. db 13:40 No provider procedures requiring assistance completed. IV discontinued, intact, db bleeding controlled, No redness/swelling at site. Administered Medications: 11:05 Drug: NS 0.9% IV 1000 ml IV at 1 bolus Per protocol; 1000 mL bolus Route: IV; Rate: 1 db bolus; Site: left antecubital; 14:07 Follow up: Response: No adverse reaction; IV Status: Completed infusion; IV Intake: db 1000ml 11:05 Drug: TORadol - Ketorolac IVP 15 mg IVP once Route: IVP; Site: left antecubital; db 14:07 Follow up: Response: No adverse reaction db 12:20 Drug: morphine IVP or IV 4 mg IVP once over 4 mins Route: IVP; Infused Over: 4 mins; db Site: left antecubital; 14:07 Follow up: Response: No adverse reaction db Medication: 13:40 VIS not applicable for this client. db Intake: 14:07 IV: 1000ml; Total: 1000ml. db Outcome: 13:02 Discharge ordered by . ms3 13:40 Discharged to home ambulatory, with family, db 13:40 Condition: stable 13:40 Discharge instructions given to patient, family, Instructed on discharge instructions, follow up and referral plans. 14:08 Patient left the ED. db Signatures: Dispatcher [employer] EDMS Terry Elliott ds4 Alfonso Slade RN RN ll1 Wesley Macdonald DO DO ms3 Chela Davis, RN RN db Joan Jung mg5
--- NOTE | 2023-06-13 13:03 | EDPHYS ---
Physician Documentation [facility] Name: Sylvia Cruz Age: 38 yrs Sex: Female : 1985 Arrival Date: 06/13/2023 Time: 10:20 Bed 16 Private MD: ED Physician Wesley Macdonald HPI: 06/13 10:45 This 38 yrs old Female presents to ER via Wheelchair with complaints of Pain. ms3 10:45 38-year-old female past medical history of alcoholism, bipolar, liver cirrhosis, ms3 depression, hypertension presents to the emergency department for lower abdominal pain. Patient states she has been having pain that is getting worse. Patient states she has had fevers up to 103. Patient states she has been seen at [facility] emergency department. Patient states she is having generalized abdominal pain that she rates an 8/10.. Historical: - Allergies: 10:33 No Known Allergies; ll1 - PMHx: 10:33 Alcoholism; Bipolar disorder; cirrhosis of liver; Depression; Hypertension; ll1 - PSHx: 10:33 Cholecystectomy; Sternum Reconstruction; ll1 - Immunization history:: Adult Immunizations up to date. - Social history:: Smoking status: Patient reports the use of cigarette tobacco products, denies chronic smoking, but will smoke occasionally. ROS: 10:45 Cardiovascular: Negative for chest pain, and palpitations. Respiratory: Negative for ms3 shortness of breath, cough, wheezing, and pleuritic chest pain, 10:45 MS/Extremity: Negative for injury and deformity, Skin: Negative for injury, rash, and discoloration, 10:45 Constitutional: Positive for body aches, fever, 10:45 Abdomen/GI: Positive for abdominal pain, 10:45 All other systems are negative, Exam: 10:45 Constitutional: This is a well developed, well nourished patient who is awake, alert, ms3 and in no acute distress. Head/Face: Normocephalic, atraumatic. Neck: Trachea midline, no cervical lymphadenopathy. Supple, full range of motion without nuchal rigidity, or vertebral point tenderness. No Meningismus. Chest/axilla: Normal chest wall appearance and motion. Nontender with no deformity. Cardiovascular: Regular rate and rhythm with a normal S1 and S2. No gallops, murmurs, or rubs. Normal PMI, no JVD. No pulse deficits. Respiratory: Lungs have equal breath sounds bilaterally, clear to auscultation and percussion. No rales, rhonchi or wheezes noted. No increased work of breathing, no retractions or nasal flaring. 10:45 Abdomen/GI: Inspection: distension, that is moderate, Bowel sounds: normal, Palpation: moderate abdominal tenderness, in all quadrants, Vital Signs: 10:32 BP 128 / 98; Pulse 105; Resp 18; Temp 98.1; Pain 9/10; ll1 10:39 BP 127 / 94; Pulse 107; Resp 18; Pulse Ox 99% on R/A; db 11:00 BP 115 / 82; Pulse 102; Resp 16; Pulse Ox 100% on R/A; db 12:00 BP 114 / 84; Pulse 97; Resp 18; Pulse Ox 100% on R/A; db 13:15 BP 122 / 89; Pulse 98; Resp 18; Pulse Ox 99% on R/A; db 10:32 Pain Scale: Adult ll1 MDM: 10:45 Differential diagnosis: bowel obstruction, non-specific abd pain. ms3 11:13 Patient medically screened. ms3 13:55 Data reviewed: vital signs, nurses notes, lab test result(s), radiologic studies, and ms3 as a result, I will discharge patient. I considered the following discharge prescriptions or medication management in the emergency department Medications were administered in the Emergency Department. See MAR. Counseling: I had a detailed discussion with the patient and/or guardian regarding the historical points, exam findings, and any diagnostic results supporting the discharge/admit diagnosis, lab results, radiology results, the need for outpatient follow up, to return to the emergency department if symptoms worsen or persist or if there are any questions or concerns that arise at home. Special discussion: Based on the patient's Hx, exam, and Dx evaluation, there is no indication for emergent surgery or inpatient Tx. It is understood by the patient/guardian that if the Sx's persist or worsen they need to return immediately for re-evaluation. ED course: Discussed labs, CT with patient. Patient to follow-up with primary care in 2 to 3 days. Patient understands and agrees with plan. All questions were answered. Return precautions discussed include worsening symptoms, or any other concerns. On reevaluation patient is improved, alert and oriented x 4, no apparent distress, nontoxic-appearing, ambulatory in the emergency department. 06/13 10:41 Order name: CBC with Diff; Complete Time: 11:34 ms3 06/13 10:41 Order name: CMP; Complete Time: 11:34 ms3 06/13 10:41 Order name: Lipase; Complete Time: 11:34 ms3 06/13 11:38 Order name: Test, Serum; Complete Time: 12:54 db 06/13 10:41 Order name: CT Abd/Pelvis - IV Contrast Only; Complete Time: 12:54 ms3 06/13 10:41 Order name: IV Saline Lock; Complete Time: 10:57 ms3 06/13 10:41 Order name: Labs collected and sent; Complete Time: 10:57 ms3 Administered Medications: 11:05 Drug: NS 0.9% IV 1000 ml IV at 1 bolus Per protocol; 1000 mL bolus Route: IV; Rate: 1 db bolus; Site: left antecubital; 14:07 Follow up: Response: No adverse reaction; IV Status: Completed infusion; IV Intake: db 1000ml 11:05 Drug: TORadol - Ketorolac IVP 15 mg IVP once Route: IVP; Site: left antecubital; db 14:07 Follow up: Response: No adverse reaction db 12:20 Drug: morphine IVP or IV 4 mg IVP once over 4 mins Route: IVP; Infused Over: 4 mins; db Site: left antecubital; 14:07 Follow up: Response: No adverse reaction db Disposition Summary: 06/13/23 13:02 Discharge Ordered Notes: Location: Home ms3 Condition: Stable ms3 Diagnosis - Abdominal pain, Generalized ms3 Followup: ms3 - With: Pranav Crawford DO - When: 2 - 3 days - Reason: Recheck today's complaints Discharge Instructions: - Discharge Summary Sheet ms3 - Abdominal Pain, Adult ms3 Forms: - Medication Reconciliation Form ms3 - Thank You Letter ms3 - Antibiotic Education ms3 - Prescription Opioid Use ms3 - Patient Portal Instructions ms3 - Leadership Thank You Letter ms3 Signatures: Dispatcher [employer] Alfonso Stevens RN RN 1 Wesley Macdonald DO DO ms3 Chela Davis RN RN db Corrections: (The following items were deleted from the chart) 11:52 10:42 Test, Urine+UC.LAB.BRZ ordered. EDMS EDMS
[2023-06-13 16:19] VITALS: TEMP 98.1
[2023-06-13 16:23] VITALS: BP 122/89; O2SAT 99
== END 2023-06-13 14:08 | disposition home or self-care (01) ==
LOC: ER 10:20
DX: R10.84 Generalized abdominal pain (principal); F10.20 Alcohol dependence, uncomplicated; F17.210 Nicotine dependence, cigarettes, uncomplicated
CPT/HCPCS: 36415; 74177; 80053; 83690; 84703; 85025; J7030; Q9967

== ENCOUNTER 2023-10-08 09:50 | Emergency (ER) | payer BC ==
--- NOTE | 2023-10-08 10:16 | ER ---
Nurse's Notes [facility] Name: Sylvia Cruz Age: 38 yrs Sex: Female : 1985 Arrival Date: 10/08/2023 Time: 09:50 Bed 14 Private MD: Diagnosis: Suicidal ideations;Alcohol dependence Presentation: 10/07 10:11 Chief complaint: Patient states: started drinking again 5 days ago, had stopped iw drinking in April. Is also having suicidal thoughts with no plan. Coronavirus screen: At this time, the client does not indicate any symptoms associated with coronavirus-19. Ebola Screen: Patient negative for fever greater than or equal to 101.5 degrees Fahrenheit, and additional compatible Ebola Virus Disease symptoms Patient denies exposure to infectious person. Patient denies travel to an Ebola-affected area in the 21 days before illness onset. No symptoms or risks identified at this time. Risk Assessment: Do you want to hurt yourself or someone else? Patient reports desire/thoughts of hurting themselves or someone else. Provider notified. Onset of symptoms was October 08, 2023. 10:11 Method Of Arrival: Ambulatory iw 10:11 Acuity: BONITA 2 iw 10:17 Initial Sepsis Screen: Does the patient meet any 2 criteria? HR > 90 bpm. Does the iw patient have a suspected source of infection? No. Patient's initial sepsis screen is negative. Historical: - Allergies: 10:13 No Known Allergies; iw - Home Meds: 10:13 mirtazapine 15 mg oral tablet nightly [Active]; aripiprazole 5 mg oral tablet daily iw [Active]; hydroxyzine HCl 50 mg Oral tablet 6 times per day [Active]; duloxetine 20 mg oral capsule,delayed release (e.c.) daily [Active]; - PMHx: 10:13 Alcoholism; Bipolar disorder; cirrhosis of liver; Depression; Hypertension; iw - PSHx: 10:13 Cholecystectomy; Sternum Reconstruction; iw - Immunization history:: Adult Immunizations up to date. - Infectious Disease History:: Denies. - Social history:: Smoking status: Patient reports the use of cigarette tobacco products, smokes one-half pack cigarettes per day, Patient uses alcohol, patient/guardian reports recent binge of alcohol consumption. Screenin:55 [facility] ED Fall Risk Assessment (Adult) History of falling in the last 3 months, rs5 including since admission No falls in past 3 months (0 pts) Confusion or Disorientation No (0 pts) Intoxicated or Sedated No (0 pts) Impaired Gait No (0 pts) Mobility Assist Device Used No (0 pt) Altered Elimination No (0 pt) Score/Fall Risk Level 0 - 2 = Low Risk Oriented to surroundings, Maintained a safe environment. 09:55 Abuse screen: Denies threats or abuse. Nutritional screening: No deficits noted. rs5 Tuberculosis screening: No symptoms or risk factors identified. Assessment: 09:55 General: Appears in no apparent distress. uncomfortable, Behavior is anxious, quiet. rs5 Pain: Denies pain. Neuro: Level of Consciousness is awake, alert, obeys commands, Oriented to person, place, time, situation. Cardiovascular: Patient's skin is warm and dry. Rhythm is regular. Respiratory: Airway is patent Respiratory effort is even, unlabored, Respiratory pattern is regular, symmetrical. GI: Abdomen is round non-distended, Abd is soft and non tender X 4 quads. : No signs and/or symptoms were reported regarding the genitourinary system. EENT: No signs and/or symptoms were reported regarding the EENT system. Derm: Skin is intact, Skin is pink, warm \\T\\ dry. Musculoskeletal: Range of motion: intact in all extremities. 09:55 Reassessment: To bedside, [place] suicide severity rating scale and screen completed. rs5 Pt states "I'm an alcoholic and I relapsed five days ago and I feel anxious. I've been having thoughts about hurting myself. I've thought about planing to take a bunch of pills and not waking up but I haven't done anything." provider notified. 09:55 Reassessment: Belongings checklist complete, belongings sent home with family. pt rs5 placed in paper scrubs and all items removed from the room. [place] provided to pt per pt request, sitter at bedside.. 11:01 Reassessment: Patient and/or family updated on plan of care and expected duration. Pain rs5 level reassessed. Patient is alert, oriented x 3, equal unlabored respirations, skin warm/dry/pink. General: Behavior is calm, cooperative. 12:05 Reassessment: No changes from previously documented assessment. rs5 13:19 Reassessment: Patient and/or family updated on plan of care and expected duration. Pain rs5 level reassessed. Patient is alert, oriented x 3, equal unlabored respirations, skin warm/dry/pink. 14:25 Reassessment: No changes from previously documented assessment. sandwich provided to pt rs5 per pt request. 15:22 Reassessment: No changes from previously documented assessment. rs5 16:25 General: Appears in no apparent distress. comfortable, Behavior is calm, cooperative. rs5 17:10 Reassessment: No changes from previously documented assessment. rs5 Vital Signs: 10:17 BP 144 / 89; Pulse 102; Resp 18; Temp 98.2; Pulse Ox 100% on R/A; Weight 51.26 kg; iw Height 5 ft. 2 in. ; Pain 0/10; 13:19 BP 130 / 81; Pulse 80; Resp 18; Temp 98(O); Pulse Ox 99% ; rs5 17:25 BP 125 / 82; Pulse 76; Resp 18; Pulse Ox 99% on R/A; rs5 10:17 Body Mass Index 20.67 (51.26 kg, 157.48 cm) iw 10:17 Pain Scale: Adult iw ED Course: 09:52 Patient arrived in ED. im 09:54 [facility] jh[facility] 09:54 Sanjeev Cummings MD is Attending Physician. jh7 09:55 Patient has correct armband on for positive identification. Placed in gown. Bed in low rs5 position. Call light in reach. Side rails up X2. 09:55 No provider procedures requiring assistance completed. rs5 10:02 Vish May, RN is Primary Nurse. rs5 10:12 Triage completed. iw 10:16 Arm band placed on. iw 14:08 faxed chart to [facility]. bd 16:25 pt accepted in transfer to [facility] by dr Velazquez admin approval given by gwyn Azul. 17:30 IV discontinued, intact, bleeding controlled, No redness/swelling at site. Pressure rs5 dressing applied. Administered Medications: 10:15 Drug: Ativan IVP 1 mg IVP once Route: IVP; Site: left antecubital; rs5 10:30 Follow up: Response: No adverse reaction; Anxiety decreased rs5 10:15 Drug: NS 0.9% IV 1000 ml IV at 1 bolus Per protocol; 1000 mL bolus Route: IV; Rate: 1 rs5 bolus; Site: left antecubital; 10:30 Follow up: Response: No adverse reaction rs5 11:22 Follow up: IV Status: Completed infusion rs5 10:40 Drug: Ondansetron IVP 4 mg IVP once; over 2 minutes Route: IVP; Site: left antecubital; rs5 11:01 Follow up: Response: No adverse reaction rs5 12:48 Drug: Ativan IVP 1 mg IVP once Route: IVP; Site: left antecubital; rs5 13:05 Follow up: Response: No adverse reaction; Anxiety decreased rs5 15:40 Drug: Dicyclomine IM 20 mg IM once Route: IM; Site: left ventrogluteal; rs5 16:05 Follow up: Response: No adverse reaction rs5 17:25 Drug: ALPRAZolam PO Tablet 0.25 mg PO once Route: PO; rs5 Medication: 13:12 VIS not applicable for this client. rs5 Outcome: 10:16 ER care complete, transfer ordered by . 7 17:30 Transferred by ground EMS Transfer form completed. rs5 17:30 Condition: stable 17:30 Discharge instructions given to patient, family, Instructed on the need for transfer, Demonstrated understanding of instructions, 17:31 Patient left the ED. 1 Signatures: Jeaneth Santiago Irene, RN RN Felecia Macdonald RN RN ld1 Sita Pop, [employer]IES[employer] MECH[employer]IC [employer] [facility] Vish May RN RN rs5 Barbie Rodney Corrections: (The following items were deleted from the chart) 10:15 10:13 Allergies: Aspirin; [facility] 13:20 13:00 Response: No adverse reaction; Anxiety decreased rs5 rs5 13:22 13:05 Response: No adverse reaction; Anxiety decreased rs5 rs5 0409 07:20 04/08 14:25 Reassessment: No changes from previously documented assessment. rs5 rs5
--- NOTE | 2023-10-08 10:16 | EDPHYS ---
Physician Documentation [facility] Name: Sylvia Cruz Age: 38 yrs Sex: Female : 1985 Arrival Date: 10/08/2023 Time: 09:50 Bed 14 Private MD: ED Physician Sanjeev Cummings HPI: 10/07 10:15 This 38 yrs old Female presents to ER via Ambulatory with complaints of ETOH jh7 withdrawal, SI. 10:15 Onset: The symptoms/episode began/occurred 3 day(s) ago. Associated signs and symptoms: jh7 Pertinent positives: vomiting, Pertinent negatives: abdominal pain, chest pain, fever, headache, seizure, shortness of breath, wheezing. 38-year-old female with a past medical history of alcoholism, depression, bipolar disorder, hypertension, and cirrhosis of the liver presents to the ER for alcohol withdrawal and suicidal ideation. The patient reports that her grandmother 3 weeks ago and that she recently found out that her boyfriend had been unfaithful which caused her to start drinking again 3 days ago. She states that before this, she had not had any alcohol since April. Also reports that she is having suicidal thoughts but denies a plan.. Historical: - Allergies: 10:13 No Known Allergies; iw - Home Meds: 10:13 mirtazapine 15 mg oral tablet nightly [Active]; aripiprazole 5 mg oral tablet daily iw [Active]; hydroxyzine HCl 50 mg Oral tablet 6 times per day [Active]; duloxetine 20 mg oral capsule,delayed release (e.c.) daily [Active]; - PMHx: 10:13 Alcoholism; Bipolar disorder; cirrhosis of liver; Depression; Hypertension; iw - PSHx: 10:13 Cholecystectomy; Sternum Reconstruction; iw - Immunization history:: Adult Immunizations up to date. - Infectious Disease History:: Denies. - Social history:: Smoking status: Patient reports the use of cigarette tobacco products, smokes one-half pack cigarettes per day, Patient uses alcohol, patient/guardian reports recent binge of alcohol consumption. ROS: 10:15 Constitutional: Negative for fever, chills, and weight loss, Eyes: Negative for injury, jh7 pain, redness, and discharge, Neck: Negative for injury, pain, and swelling, Cardiovascular: Negative for chest pain, palpitations, and edema, Respiratory: Negative for shortness of breath, cough, wheezing, and pleuritic chest pain, Back: Negative for injury and pain, MS/Extremity: Negative for injury and deformity, Skin: Negative for injury, rash, and discoloration, Neuro: Negative for headache, weakness, numbness, tingling, and seizure, 10:15 Abdomen/GI: Positive for nausea and vomiting, Negative for abdominal pain, 10:15 Psych: Positive for depression, alcohol dependence, suicidal ideation, 10:15 All other systems are negative, Exam: 10:15 Constitutional: This is a well developed, well nourished patient who is awake, alert, jh7 and in no acute distress. Head/Face: Normocephalic, atraumatic. Eyes: Pupils equal round and reactive to light, extra-ocular motions intact. Lids and lashes normal. Conjunctiva and sclera are non-icteric and not injected. Cornea within normal limits. Periorbital areas with no swelling, redness, or edema. Neck: Trachea midline, no thyromegaly or masses palpated, and no cervical lymphadenopathy. Supple, full range of motion without nuchal rigidity, or vertebral point tenderness. No Meningismus. Cardiovascular: Regular rate and rhythm with a normal S1 and S2. No gallops, murmurs, or rubs. Normal PMI, no JVD. No pulse deficits. Respiratory: Lungs have equal breath sounds bilaterally, clear to auscultation and percussion. No rales, rhonchi or wheezes noted. No increased work of breathing, no retractions or nasal flaring. Abdomen/GI: Soft, non-tender, with normal bowel sounds. No distension or tympany. No guarding or rebound. No evidence of tenderness throughout. Back: No spinal tenderness. No costovertebral tenderness. Full range of motion. Skin: Warm, dry with normal turgor. Normal color with no rashes, no lesions, and no evidence of cellulitis. MS/ Extremity: Pulses equal, no cyanosis. Neurovascular intact. Full, normal range of motion. Neuro: Awake and alert, GCS 15, oriented to person, place, time, and situation. Motor strength 5/5 in all extremities. Sensory grossly intact. Normal gait. 10:15 Psych: Behavior/mood is suicidal, Affect is calm, Oriented to person, place, time, Patient having thoughts of suicide. Denies suicidal plan. Judgement / Insight is normal. Memory is normal. Delusions/hallucinations are not present. Vital Signs: 10:17 BP 144 / 89; Pulse 102; Resp 18; Temp 98.2; Pulse Ox 100% on R/A; Weight 51.26 kg; iw Height 5 ft. 2 in. ; Pain 0/10; 13:19 BP 130 / 81; Pulse 80; Resp 18; Temp 98(O); Pulse Ox 99% ; rs5 17:25 BP 125 / 82; Pulse 76; Resp 18; Pulse Ox 99% on R/A; rs5 10:17 Body Mass Index 20.67 (51.26 kg, 157.48 cm) iw 10:17 Pain Scale: Adult iw MDM: 09:55 Patient medically screened. [facility] 13:32 Differential diagnosis: Suicidal ideation, acute psychotic break, alcohol abuse. Data [facility] reviewed: vital signs, nurses notes, lab test result(s). Consideration of Admission/Observation Will transfer to the appropriate psychiatric facility. I considered the following discharge prescriptions or medication management in the emergency department Medications were administered in the Emergency Department. See MAR. Care significantly affected by the following chronic conditions: Mental illness. Care significantly affected by the following Social Determinants of Health: Misuse of alcohol and/or drugs. Counseling: I had a detailed discussion with the patient and/or guardian regarding the historical points, exam findings, and any diagnostic results supporting the discharge/admit diagnosis, the need to transfer to another facility, [facility] does not immediately have the required specialist. Response to treatment: the patient's symptoms have markedly improved after treatment. ED course: Reevaluated patient. She is no longer anxious but still admits to wanting to commit suicide. Will transfer to appropriate psychiatric facility.. 10/07 10:06 Order name: Acetaminophen; Complete Time: 12:35 [facility] 10/07 10:06 Order name: Basic Metabolic Panel; Complete Time: 12:35 [facility] 10/07 10:06 Order name: CBC with Diff; Complete Time: 13:52 [facility] 10/07 10:06 Order name: ETOH Level; Complete Time: 13:32 [facility] 10/07 10:06 Order name: Hepatic Function; Complete Time: 12:35 [facility] 10/07 10:06 Order name: PT-INR; Complete Time: 12:35 [facility] 10/07 10:06 Order name: Test, Urine; Complete Time: 11:57 [facility] 10/07 10:06 Order name: Ptt, Activated; Complete Time: 12:35 [facility] 10/07 10:06 Order name: Salicylate; Complete Time: 12:53 [facility] 10/07 10:06 Order name: Urinalysis w/ reflexes; Complete Time: 11:57 [facility] 10/07 10:06 Order name: Urine Drug Screen; Complete Time: 11:57 [facility] 10/07 12:18 Order name: CBC Smear Scan; Complete Time: 13:52 EDMS 10/07 10:06 Order name: EKG - Nurse/Tech; Complete Time: 11:49 [facility] 10/07 10:06 Order name: IV Saline Lock; Complete Time: 11:49 [facility] 10/07 10:06 Order name: Labs collected and sent; Complete Time: 11:49 [facility] 10/07 10:06 Order name: Suicide Precautions; Complete Time: 11:49 [facility] 10/07 10:06 Order name: Suicide Screening ([place]); Complete Time: 11:49 [facility] Administered Medications: 10:15 Drug: Ativan IVP 1 mg IVP once Route: IVP; Site: left antecubital; rs5 10:30 Follow up: Response: No adverse reaction; Anxiety decreased rs5 10:15 Drug: NS 0.9% IV 1000 ml IV at 1 bolus Per protocol; 1000 mL bolus Route: IV; Rate: 1 rs5 bolus; Site: left antecubital; 10:30 Follow up: Response: No adverse reaction rs5 11:22 Follow up: IV Status: Completed infusion rs5 10:40 Drug: Ondansetron IVP 4 mg IVP once; over 2 minutes Route: IVP; Site: left antecubital; rs5 11:01 Follow up: Response: No adverse reaction rs5 12:48 Drug: Ativan IVP 1 mg IVP once Route: IVP; Site: left antecubital; rs5 13:05 Follow up: Response: No adverse reaction; Anxiety decreased rs5 15:40 Drug: Dicyclomine IM 20 mg IM once Route: IM; Site: left ventrogluteal; rs5 16:05 Follow up: Response: No adverse reaction rs5 17:25 Drug: ALPRAZolam PO Tablet 0.25 mg PO once Route: PO; rs5 Disposition Summary: 10/08/23 10:16 Transfer Ordered Notes: Transfer Location: Psych Facility [facility] Reason: Higher level of care [facility] Condition: Fair 7 Problem: an ongoing problem 7 Symptoms: have worsened 7 Accepting Physician: Accepting psych facility(10/08/23 17:31) ld1 Diagnosis - Suicidal ideations 7 - Alcohol dependence [facility] Forms: - Medication Reconciliation Form 7 - SBAR form 7 Signatures: Dispatcher [employer] EDSiri Siddiqui, RN SARAHI Felecia Macdonald RN RN ld1 Sita Pop, NUCLEAR EQUIPMENT SALES ENGINEER NUCLEAR EQUIPMENT SALES ENGINEER jh7 Vish May RN RN rs5 Corrections: (The following items were deleted from the chart) 10:06 10:06 ACETAMINOPHEN+C.LAB.BRZ ordered. EDMS EDMS 10:06 10:06 BASIC METABOLIC PANEL+C.LAB.BRZ ordered. EDMS EDMS 10:06 10:06 CBC+H.LAB.BRZ ordered. EDMS EDMS 10:06 10:06 ETHANOL+C.LAB.BRZ ordered. EDMS EDMS 10:06 10:06 HEPATIC FUNCTION+C.LAB.BRZ ordered. EDMS EDMS 10:06 10:06 PROTIME (+INR)+COAG.LAB.BRZ ordered. EDMS EDMS 10:06 10:06 Test, Urine+UC.LAB.BRZ ordered. EDMS EDMS 10:06 10:06 PTT, ACTIVATED+COAG.LAB.BRZ ordered. EDMS EDMS 10:06 10:06 SALICYLATE+C.LAB.BRZ ordered. EDMS EDMS 10:06 10:06 Urinalysis+U.LAB.BRZ ordered. EDMS EDMS 10:06 10:06 URINE DRUG SCREEN+UC.LAB.BRZ ordered. EDMS EDMS 10:15 10:13 Allergies: Aspirin; iw 17:31 10:16 Accepting psych facility jh7 ld1
[2023-10-08] MEDS ORDERED: NA CHLORIDE 0.9% 1,000 ML ONE (10:22)
[2023-10-08] MEDS ORDERED: LORazepam 2 MG/ML VIAL ONE ×2 (10:23→12:42)
[2023-10-08] MEDS ORDERED: ONDANSETRON 4 MG/2 ML VIAL ONE (10:38)
[2023-10-08 11:29] LABS: Specific Gravity 1.027 (1.005-1.030)
[2023-10-08 11:32] LABS: Barbiturates NEGATIVE (NEGATIVE); Benzodiazepines NEGATIVE (NEGATIVE); Cocaine NEGATIVE (NEGATIVE); METHAMPHETAM NEGATIVE (NEGATIVE); Methadone NEGATIVE (NEGATIVE); Opiates NEGATIVE (NEGATIVE); Phencyclidine NEGATIVE (NEGATIVE); THC Cannibis NEGATIVE (NEGATIVE)
[2023-10-08 11:33] LABS: Specific Gravity 1.027 (1.005-1.030); Urine Bacteria 20-50 /HPF (<20); Urine Bilirubin NEGATIVE (Negative); Urine Blood 2+ (Negative); Urine Clarity Extremely Turbid (Clear); Urine Color Yellow (Yellow); Urine Culture Reflex Order NOT NEEDED; Urine Glucose TRACE (Negative); Urine Ketones NEGATIVE (Negative); Urine Microscopic Reflex YN ORDER UMIC; Urine Mucus 4+ /HPF (None Seen); Urine Nitrite NEGATIVE (Negative); Urine Protein 1+ (Negative); Urine RBC <5 /HPF (None Seen); Urine Urobilinogen 1+ (Normal); Urine WBC <5 /HPF (<5)
[2023-10-08 12:06] LABS: Absolute Eosinophils 0.1 K/uL (0-0.5); Absolute Lymphocytes (CBC) 0.7 K/uL (0.7-4.9); Absolute Monocytes 0.4 K/uL (0.1-1.3); Absolute Neutrophil 2.5 K/uL (1.8-8.0); Basophils % 0.9 % (0-1.3); Eosinophils % 3.7 % (0-4.4); Hematocrit 32.9 % (36.0-45.0); Hemoglobin 11.2 g/dL (12.0-15.0); Lymphocytes % 18.9 % (15.3-44.8); MCH 34.2 pg (27.0-35.0); MCV 100.7 fL (80-100); MPV 6.6 fL (7.6-11.3); Monocytes % 11.3 % (3.3-12.3); Neutrophils % 65.2 % (41.7-73.7); Platelets 58 thou/uL (152-406); RBC Red Blood Cell Count 3.27 M/uL (3.86-4.86); Red Cell Distribution Width 13.8 % (12.1-15.2)
[2023-10-08 12:10] LABS: PT Prothrombin Time 14.4 SECONDS (9.5-12.5); PTT, Activated Partial Thromb 41.2 SECONDS (24.3-36.9); Protime INR 1.32
[2023-10-08 12:24] LABS: ALT/SGPT 80 U/L (13-56); AST/SGOT 165 U/L (15-37); Albumin 3.7 g/dL (3.4-5.0); Albumin/Globulin Ratio 0.9 (1.1-1.8); Alkaline Phosphatase 119 U/L (45-117); Anion Gap 8.5 mEq/L (5.0-15.0); BUN Blood Urea Nitrogen 8 mg/dL (7-18); Bicarbonate 24 mEq/L (21-32); Bilirubin Direct 0.6 mg/dL (0-0.2); Bilirubin Total 1.6 mg/dL (0.2-1.0); Globulin 4.3 g/dL (2.3-3.5); Glomerular Filtration Rate 121 ml/min (=/>90); Glucose Level 100 mg/dL (74-106); Potassium 3.5 mEq/L (3.5-5.1); Sodium Level 143 mEq/L (136-145)
[2023-10-08 13:45] LABS: Blood Morphology Comment NOT SEEN (NOT SEEN); Platelet Estimate DECR; White Blood Cell Scan OK (OK)
[2023-10-08] MEDS ORDERED: DICYCLOMINE HCL 20 MG/2 ML AMP IM ONE (16:10)
[2023-10-08] MEDS ORDERED: ALPRAZOLAM 0.25 MG TABLET ONE (17:26)
[2023-10-08 22:22] VITALS: BP 130/81; TEMP 98; O2SAT 99
== END 2023-10-08 17:31 ==
LOC: ER 09:50
DX: R45.851 Suicidal ideations (principal); F10.20 Alcohol dependence, uncomplicated; F31.9 Bipolar disorder, unspecified; F17.210 Nicotine dependence, cigarettes, uncomplicated
CPT/HCPCS: 96361; 85025; 81001; 80048; 36415; 81025; 85610; 80076; 85730; 80307; 96375; 96372; 96374; 99285; 80143; 80179; 82077; J0500; J2405; J7030

== ENCOUNTER 2023-11-30 20:21 | Emergency (ER) | payer BC ==
[2023-11-30] MEDS ORDERED: IBUPROFEN 200 MG TAB PO ONE (21:49)
[2023-11-30] MEDS ORDERED: HYDROCODONE/APAP 5/325 MG TAB ONE (21:49)
[2023-11-30] MEDS ORDERED: IBUPROFEN 400 MG TAB ONE (21:49)
--- NOTE | 2023-11-30 22:11 | RAD REPORT ---
EXAM DESCRIPTION: RAD - HAND - 11/30/2023 9:21 pm CLINICAL HISTORY: PAIN COMPARISON: Hand Left 3 View dated 03/25/2022 TECHNIQUE: Left hand, 3 views. FINDINGS: No fracture is identified. There is no dislocation or periosteal reaction noted. Joint alignment is maintained. No foreign body or other soft tissue abnormality. IMPRESSION: Negative left hand examination.
[2023-11-30] MEDS ORDERED: LIDOCAINE 2% MPF 5 ML VIAL ONE (22:38)
[2023-11-30] MEDS ORDERED: LORAZEPAM 1 MG TABLET ONE (22:39)
--- NOTE | 2023-11-30 23:19 | ER ---
Nurse's Notes [facility] Name: Sylvia Cruz Age: 38 yrs Sex: Female : 1985 Arrival Date: 11/30/2023 Time: 20:21 Bed DX5 Private MD: Diagnosis: Localized swelling, mass and lump, right upper limb-right index finger Presentation: 11/29 20:29 Chief complaint: Patient states: bump to left index finger that is painful. Coronavirus as6 screen: At this time, the client does not indicate any symptoms associated with coronavirus-19. Ebola Screen: No symptoms or risks identified at this time. Initial Sepsis Screen: Does the patient meet any 2 criteria? No. Patient's initial sepsis screen is negative. Does the patient have a suspected source of infection? No. Patient's initial sepsis screen is negative. Risk Assessment: Do you want to hurt yourself or someone else? Patient reports no desire to harm self or others. Onset of symptoms was November 23, 2023. 20:29 Method Of Arrival: Ambulatory as6 20:29 Acuity: BONITA 4 as6 Triage Assessment: 20:30 General: Appears in no apparent distress. Behavior is cooperative, anxious. Pain: as6 Complains of pain in left hand. Derm: Wound noted palmar aspect of middle phalanx of left index finger Wound is wart. Historical: - Allergies: 20:31 No Known Allergies; as6 - PMHx: 20:31 Alcoholism; Bipolar disorder; cirrhosis of liver; Depression; Hypertension; as6 - PSHx: 20:31 Cholecystectomy; Sternum Reconstruction; as6 - Immunization history:: Adult Immunizations not up to date. - Infectious Disease History:: Denies. - Social history:: Smoking status: Reported history of juuling and/or vaping. Patient uses alcohol. Screenin:38 [facility] ED Fall Risk Assessment (Adult) History of falling in the last 3 months, as6 including since admission No falls in past 3 months (0 pts) Confusion or Disorientation No (0 pts) Intoxicated or Sedated No (0 pts) Impaired Gait No (0 pts) Mobility Assist Device Used No (0 pt) Altered Elimination No (0 pt) Score/Fall Risk Level 0 - 2 = Low Risk Oriented to surroundings, Maintained a safe environment, Educated pt \T\ family on fall prevention, incl call for assistance when getting out of bed, Assessed \T\ reinforced patient's understanding of fall precautions. Abuse screen: Denies threats or abuse. Denies injuries from another. Nutritional screening: No deficits noted. Tuberculosis screening: No symptoms or risk factors identified. Assessment: 22:41 General: lorenzo Kent [phone]. lg3 Vital Signs: 20:29 BP 122 / 96; Pulse 113; Resp 18 S; Temp 97.9(TE); Pulse Ox 97% on R/A; Weight 58.97 kg as6 (R); Height 5 ft. 2 in. (R); Pain 7/10; 23:37 BP 115 / 80; Pulse 65; Resp 18; Pulse Ox 97% ; as6 20:29 Body Mass Index 23.78 (58.97 kg, 157.48 cm) as6 20:29 Pain Scale: Adult as6 ED Course: 20:23 Patient arrived in ED. jj6 20:23 Lakhwinder Bills PA is PHCP. cp 20:23 Enrique Zhu MD is Attending Physician. cp 20:29 Arm band placed on. as6 20:31 Triage completed. as6 21:22 XRAY Hand LEFT 3 View In Process Unspecified. EDMS 23:39 Bed in low position. Call light in reach. Provided Education on: follow up. as6 23:39 Assisted provider with: wart removal of left index finger. Patient did not have IV as6 access during this emergency room visit. Administered Medications: 21:52 Drug: HYDROcodone-acetaminophen PO 5 mg-325 mg 1 tabs PO once Route: PO; kb3 23:43 Follow up: Response: No adverse reaction as6 21:52 Drug: Ibuprofen PO 600 mg PO once Route: PO; kb3 23:43 Follow up: Response: No adverse reaction as6 22:37 Drug: LORazepam PO 1 mg PO once; if patient has ride Route: PO; kb3 23:43 Follow up: Response: No adverse reaction as6 23:20 Drug: Lidocaine Infiltration (2 %) 5 ml 5 ml Infiltration once; to bedside {Note: as6 administered by provider.} Volume: 5 ml; Route: Infiltration; 23:43 Follow up: Response: No adverse reaction as6 Medication: 23:38 VIS not applicable for this client. as6 Outcome: 23:19 Discharge ordered by . cp 23:39 Discharged to home ambulatory, with family, as6 23:39 Condition: stable 23:39 Discharge instructions given to patient, Instructed on discharge instructions, follow up and referral plans. medication usage, wound care, Demonstrated understanding of instructions, follow-up care, medications, wound care, Prescriptions given X 1, 23:42 Patient left the ED. as6 Signatures: Dispatcher [employer] EDMS Lakhwinder Bills PA PA cp Able, Lacie, RN RN lg3 Sita Neville jj6 Jesús Trejo RN RN as6 Vania Mesa, RN RN kb3
--- NOTE | 2023-11-30 23:20 | EDPHYS ---
Physician Documentation [facility] Name: Sylvia Cruz Age: 38 yrs Sex: Female : 1985 Arrival Date: 11/30/2023 Time: 20:21 Bed DX5 Private MD: ED Physician Enrique Zhu HPI: 11/29 21:00 This 38 yrs old Female presents to ER via Ambulatory with complaints of SUSPICIOUS BUMP cp ON FINGER, FINGER PAIN/NUMBNESS. 21:00 The patient or guardian reports pain, swelling, tenderness, mass of left index finger. cp 21:00 Context: resulted from an unknown cause. cp 21:00 Onset: The symptoms/episode began/occurred 1 week(s) ago. cp 21:00 Associated signs and symptoms: Pertinent positives: radiating pain and numbness. cp Historical: - Allergies: 20: No Known Allergies; as6 - PMHx: 20:31 Alcoholism; Bipolar disorder; cirrhosis of liver; Depression; Hypertension; as6 - PSHx: 20:31 Cholecystectomy; Sternum Reconstruction; as6 - Immunization history:: Adult Immunizations not up to date. - Infectious Disease History:: Denies. - Social history:: Smoking status: Reported history of juuling and/or vaping. Patient uses alcohol. ROS: 21:05 Constitutional: HX per HPI cp Exam: 22:00 Musculoskeletal/extremity: Extremities: grossly normal except: noted in the left index cp finger: pain, small 1-2 cm round mass noted ulna side of distal phalanx left index finger, ROM: limited active range of motion, in the left index finger, Perfusion: the extremity is normally perfused throughout, the left index finger numbness, 22:00 Skin: cellulitis, is not appreciated, no rash present. Vital Signs: 20:29 BP 122 / 96; Pulse 113; Resp 18 S; Temp 97.9(TE); Pulse Ox 97% on R/A; Weight 58.97 kg as6 (R); Height 5 ft. 2 in. (R); Pain 7/10; 23:37 BP 115 / 80; Pulse 65; Resp 18; Pulse Ox 97% ; as6 20:29 Body Mass Index 23.78 (58.97 kg, 157.48 cm) as6 20:29 Pain Scale: Adult as6 Procedures: 23:20 Performed removal of mass: skin cleaned with Betadine and area anesthetized with 2 ccs cp of 2% lidocaine w/o epi, using #11 blade, mass surgically excised w/o complication, mild bleeding. pressure dressing applied. MDM: 20:33 Patient medically screened. cp 23:19 Data reviewed: vital signs, nurses notes, radiologic studies, plain films. cp 23:19 I considered the following discharge prescriptions or medication management in the cp emergency department Medications were administered in the Emergency Department. See MAR. Counseling: I had a detailed discussion with the patient and/or guardian regarding the historical points, exam findings, and any diagnostic results supporting the discharge/admit diagnosis, radiology results, to return to the emergency department if symptoms worsen or persist or if there are any questions or concerns that arise at home. 11/29 20:52 Order name: XRAY Hand LEFT 3 View; Complete Time: 22:42 cp 11/29 22:42 Interpretation: Report reviewed. cp Administered Medications: 21:52 Drug: HYDROcodone-acetaminophen PO 5 mg-325 mg 1 tabs PO once Route: PO; kb3 23:43 Follow up: Response: No adverse reaction as6 21:52 Drug: Ibuprofen PO 600 mg PO once Route: PO; kb3 23:43 Follow up: Response: No adverse reaction as6 22:37 Drug: LORazepam PO 1 mg PO once; if patient has ride Route: PO; kb3 23:43 Follow up: Response: No adverse reaction as6 23:20 Drug: Lidocaine Infiltration (2 %) 5 ml 5 ml Infiltration once; to bedside {Note: as6 administered by provider.} Volume: 5 ml; Route: Infiltration; 23:43 Follow up: Response: No adverse reaction as6 Disposition Summary: 11/30/23 23:19 Discharge Ordered Notes: Location: Home cp Condition: Stable cp Problem: new cp Symptoms: have improved cp Diagnosis - Localized swelling, mass and lump, right upper limb - right index finger cp Followup: cp - With: Private Physician - When: 2 - 3 days - Reason: Worsening of condition Discharge Instructions: - Discharge Summary Sheet cp - Wound Care, Adult cp Forms: - Medication Reconciliation Form cp - Antibiotic Education cp - Prescription Opioid Use cp - Patient Portal Instructions cp - Leadership Thank You Letter cp Prescriptions: - Ibuprofen 600 mg Oral tablet - take 1 tablet ORAL route every 8 hours As needed take with food; 30 tablet; cp Refills: 0, Product Selection Permitted Addendum: 12/02/2023 02:54 Co-signature as Attending Physician, Enrique Zhu MD I agree with the assessment s p4 and plan of care. I reviewed the patient's care provided by the Advanced Practice Provider and agree with the diagnosis and treatment plan. Signatures: Dispatcher [employer] EDMS Lakhwinder Bills PA PA cp Slawson, Ashby RN RN as6 Vania Mesa RN RN kb3 Enrique Zhu MD MD sp4 Corrections: (The following items were deleted from the chart) 11/29 20:52 20:52 Hand Left 3 View+RAD.RAD.BRZ ordered. EDKY EDMS
[2023-11-30 23:57] VITALS: TEMP 97.9; O2SAT 97
[2023-12-01 00:38] VITALS: BP 115/80
== END 2023-11-30 23:42 | disposition home or self-care (01) ==
LOC: ER 20:21
DX: R22.31 Localized swelling, mass and lump, right upper limb (principal)
CPT/HCPCS: 73130; 99283; J2001

== ENCOUNTER 2023-12-11 20:20 | Emergency (ER) | payer BC ==
[2023-12-11 21:25] LABS: Absolute Basophils 0.1 K/uL (0-0.5); Absolute Eosinophils 0.3 K/uL (0-0.5); Absolute Lymphocytes (CBC) 4.2 K/uL (0.7-4.9); Absolute Neutrophil 2.8 K/uL (1.8-8.0); Basophils % 1.1 % (0-1.3); Hematocrit 40.5 % (36.0-45.0); Hemoglobin 13.4 g/dL (12.0-15.0); Lymphocytes % 50.4 % (15.3-44.8); MCH 33.6 pg (27.0-35.0); MCHC 33.2 g/dL (32.0-36.0); MCV 101.2 fL (80-100); MPV 6.9 fL (7.6-11.3); Monocytes % 11.5 % (3.3-12.3); Platelets 145 thou/uL (152-406); Red Cell Distribution Width 13.3 % (12.1-15.2)
[2023-12-11] MEDS ORDERED: ONDANSETRON 4 MG/2 ML VIAL ONE (21:31)
[2023-12-11] MEDS ORDERED: MORPHINE 4 MG/ML SYR ONE (21:31)
[2023-12-11 21:42] LABS: Albumin 3.8 g/dL (3.4-5.0); Albumin/Globulin Ratio 0.7 (1.1-1.8); Anion Gap 10.3 mEq/L (5.0-15.0); Bilirubin Direct 0.5 mg/dL (0-0.2); Bilirubin Indirect, Calculated 0.8 mg/dL (0.2-0.8); Bilirubin Total 1.3 mg/dL (0.2-1.0); Globulin 5.1 g/dL (2.3-3.5); Magnesium 1.9 mg/dL (1.6-2.4); Potassium 3.3 mEq/L (3.5-5.1); Protein, Total 8.9 g/dL (6.4-8.2); Troponin High Sensitivity 4.8 pg/mL (<58.9)
--- NOTE | 2023-12-11 22:06 | RAD REPORT ---
EXAM DESCRIPTION: RADChest Single View12/11/2023 9:23 pm CLINICAL HISTORY: ABDOMINAL DISTENTION COMPARISON: Chest Single View dated 03/21/2023; Chest Single View dated 08/25/2022; Chest Single View dated 12/03/2021; Chest Single View dated 09/26/2021 TECHNIQUE: Portable AP view of the chest. FINDINGS: Stable central fluffy airspace opacities. No pneumothorax or effusion. The cardiomediasti nal contours are unremarkable. IMPRESSION: Similar findings suggestive of mild pulmonary edema.
[2023-12-11 22:11] LABS: PT Prothrombin Time 12.9 SECONDS (9.5-12.5); PTT, Activated Partial Thromb 41.7 SECONDS (24.3-36.9); Protime INR 1.18
--- NOTE | 2023-12-12 01:32 | ER ---
Nurse's Notes [facility] Name: Sylvia Cruz Age: 38 yrs Sex: Female : 1985 Arrival Date: 12/11/2023 Time: 20:20 Bed 7 Private MD: Diagnosis: Diarrhea, unspecified;Vomiting;Alcoholic cirrhosis of liver;Lower abdominal pain, unspecified Presentation: 12/10 20:25 Chief complaint: Patient states: "Weakness for the last 3 days, i dont feel good, i nj1 dont feel right". Had a really bad nose bleed today. Diarrhea for the past 3 days along with vomiting. Denies nausea. "my liver hurts". Coronavirus screen: Vaccine status: Patient reports receiving the 2nd dose of the covid vaccine. Ebola Screen: Patient denies travel to an Ebola-affected area in the 21 days before illness onset. Initial Sepsis Screen: Does the patient meet any 2 criteria? HR > 90 bpm. No. Patient's initial sepsis screen is negative. Does the patient have a suspected source of infection? No. Patient's initial sepsis screen is negative. Risk Assessment: Do you want to hurt yourself or someone else? Patient reports no desire to harm self or others. Onset of symptoms was December 09, 2023. 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 - Infectious Disease History:: Denies. - Social history:: Smoking status: Patient reports the use of cigarette tobacco products, smokes one-half pack cigarettes per day, Patient uses alcohol, every other day. Screenin:13 [facility] ED Fall Risk Assessment (Adult) History of falling in the last 3 months, bm8 including since admission No falls in past 3 months (0 pts) Confusion or Disorientation No (0 pts) Intoxicated or Sedated No (0 pts) Impaired Gait No (0 pts) Mobility Assist Device Used No (0 pt) Altered Elimination No (0 pt) Score/Fall Risk Level 0 - 2 = Low Risk Oriented to surroundings, Maintained a safe environment, Educated pt \\T\\ family on fall prevention, incl call for assistance when getting out of bed. Abuse screen: Denies threats or abuse. Nutritional screening: No deficits noted. Tuberculosis screening: No symptoms or risk factors identified. Assessment: 21:13 General: Appears uncomfortable, Behavior is cooperative, Reports. Pain: Complains of bm8 pain in right lower quadrant Pain Quality of pain is described as aching, Pain began 2-3 days ago. Is Alleviated by medications, Aggravated by Noted to be crying, Also complains of decreased appetite, sleeplessness. Neuro: Oriented to person, place, time, situation. Cardiovascular: Reports vomiting. Respiratory: No deficits noted. GI: Abdomen is flat, Last BM was December 11, 2023. Guarding noted Reports diarrhea. : No signs and/or symptoms were reported regarding the genitourinary system. EENT: No signs and/or symptoms were reported regarding the EENT system. Derm: No signs and/or symptoms reported regarding the dermatologic system. Musculoskeletal: Musculoskeletal: No deficits noted. 22:47 Reassessment: Patient appears in no apparent distress at this time. Patient and/or bm8 family updated on plan of care and expected duration. Pain level reassessed. Patient is alert, oriented x 3, equal unlabored respirations, skin warm/dry/pink. Patient states symptoms have improved. Pain: Denies pain. Neuro: No deficits noted. Level of Consciousness is awake, alert, obeys commands, Oriented to person, place, time, situation. Cardiovascular: Denies chest pain, shortness of breath. Respiratory: No deficits noted. Airway is patent Respiratory effort is even, unlabored, Respiratory pattern is regular, symmetrical. GI: Abdomen is flat, non-distended, Reports pain in groin on right side. pain does not radiate. described as constant and sharp. : No signs and/or symptoms were reported regarding the genitourinary system. EENT: No signs and/or symptoms were reported regarding the EENT system. Derm: No signs and/or symptoms reported regarding the dermatologic system. Musculoskeletal: No deficits noted. No signs and/or symptoms reported regarding the musculoskeletal system. 12/11 00:00 Reassessment: Patient appears in no apparent distress at this time. Patient and/or jw7 family updated on plan of care and expected duration. Pain level reassessed. Patient is alert, oriented x 3, equal unlabored respirations, skin warm/dry/pink. Patient states feeling better. Patient states symptoms have improved. 01:00 Reassessment: Patient appears in no apparent distress at this time. No changes from [facility] previously documented assessment. Patient and/or family updated on plan of care and expected duration. Pain level reassessed. Patient is alert, oriented x 3, equal unlabored respirations, skin warm/dry/pink. 01:57 Reassessment: Patient appears in no apparent distress at this time. No changes from [facility] previously documented assessment. Patient and/or family updated on plan of care and expected duration. Pain level reassessed. Patient is alert, oriented x 3, equal unlabored respirations, skin warm/dry/pink. Vital Signs: 12/10 20:25 BP 159 / 113; Pulse 108; Resp 18; Temp 97.4(TE); Pulse Ox 99% ; Weight 58.97 kg; Height nj1 5 ft. 2 in. ; Pain 7/10; 21:13 BP 160 / 100; Pulse 104; Resp 20; Pulse Ox 100% ; Pain 8/10; bm8 22:47 BP 135 / 86; Pulse 99; Resp 18; Temp 98.5; Pulse Ox 99% ; Pain 0/10; bm8 12/11 00:00 BP 141 / 95; Pulse 101; Resp 17 S; Pulse Ox 99% on R/A; jw7 01:00 BP 144 / 82; Pulse 99; Resp 13 S; Pulse Ox 97% on R/A; jw7 01:58 BP 136 / 96; Pulse 95; Resp 15 S; Pulse Ox 98% on R/A; jw7 12/10 20:25 Body Mass Index 23.78 (58.97 kg, 157.48 cm) wv1 12/10 20:25 Pain Scale: Adult nj1 21:13 Pain Scale: Adult bm8 22:47 Pain Scale: Adult bm8 Jessica Coma Score: 12/10 22:47 Eye Response: spontaneous(4). Motor Response: obeys commands(6). Verbal Response: bm8 oriented(5). Total: 15. ED Course: 20:23 Patient arrived in ED. jj6 20:25 Lakhwinder Bills PA is PHCP. cp 20:25 Enrique Zhu MD is Attending Physician. cp 20:28 Triage completed. nj1 20:30 Arm band placed on right wrist. nj1 20:48 Wilmer Bell, RN is Primary Nurse. bm8 20:53 Inserted saline lock: 22 gauge in right antecubital area, using aseptic technique. vk 21:13 Patient has correct armband on for positive identification. Placed in gown. Bed in low bm8 position. Call light in reach. Side rails up X 1. Adult w/ patient. Client placed on continuous cardiac and pulse oximetry monitoring. NIBP monitoring applied. Pulse ox on. NIBP on. Door closed. Noise minimized. Visitors limited. Warm blanket given. Verbal reassurance given. Head of bed elevated. 21:13 No provider procedures requiring assistance completed. bm8 21:14 Initial lab(s) drawn, by me, sent to lab. vk 21:14 EKG done, by ED staff. vk 21:14 Basic Metabolic Panel Sent. vk 21:14 CBC with Diff Sent. vk 21:14 LFT's Sent. vk 21:14 Magnesium Sent. vk 21:14 PT-INR Sent. vk 21:14 Troponin HS Sent. vk 21:14 Ptt, Activated Sent. vk 21:25 XRAY Chest (1 view) In Process Unspecified. EDMS 23:24 CT Abd/Pelvis - IV Contrast Only In Process Unspecified. EDMS 12/11 00:00 Provided Education on: Use of Call Light. jw7 00:51 Transvaginal Study Probe In Process Unspecified. EDMS 01:59 IV discontinued, intact, bleeding controlled, No redness/swelling at site. Pressure jw7 dressing applied. Administered Medications: 12/10 21:39 Drug: morphine IVP or IV 4 mg IVP once over 4 mins Route: IVP; Infused Over: 4 mins; bm8 Site: right antecubital; 22:47 Follow up: Response: No adverse reaction bm8 21:39 Drug: Ondansetron IVP 4 mg IVP once; over 2 minutes Route: IVP; Site: right antecubital;bm8 22:47 Follow up: Response: No adverse reaction bm8 12/11 01:56 Drug: Potassium PO Effervescent Tablet 50 mEq PO once; dissolve in 4 ounces of water or jw7 juice Route: PO; 01:56 Follow up: Response: No adverse reaction; Medication administered at discharge. jw7 Medication: 12/10 21:13 VIS not applicable for this client. bm8 Outcome: 12/11 01:32 Discharge ordered by . adamaris 01:59 Discharged to home ambulatory, jw7 01:59 Condition: stable 01:59 Discharge instructions given to patient, Instructed on discharge instructions, follow up and referral plans. medication usage, Demonstrated understanding of instructions, follow-up care, medications, Prescriptions given X 2, 02:00 Patient left the ED. jw7 Signatures: Dispatcher [employer] EDMS Lakhwinder Bills PA PA cp Jeffries, Jennifer jj6 Clover Henderson RN RN jw7 Do Sandhu, RN RN nj1 Adeola Rodriguez Brad, RN RN bm8 Corrections: (The following items were deleted from the chart) 00:51 00:48 In radiology for Pelvis Complete+US.RAD.BRZ. EDKY EDMS
--- NOTE | 2023-12-12 01:32 | EDPHYS ---
Physician Documentation [facility] Name: Sylvia Cruz Age: 38 yrs Sex: Female : 1985 Arrival Date: 12/11/2023 Time: 20:20 Bed 7 Private MD: ED Physician Enrique Zhu HPI: 12/10 20:58 This 38 yrs old Female presents to ER via Ambulatory with complaints of Diarrhea, Nose cp Bleed, PT STATES SHE IS A RECOVERING ALCOHOLIC, HAS CIRRHOSIS OF THE LIVER, AND OVARIAN CANCER.. 20:58 The patient presents to the emergency department with vomiting, that is intermittent, cp diarrhea, that is intermittent. 20:58 Onset: The symptoms/episode began/occurred 3 day(s) ago. cp 20:58 Possible causes: unknown. cp 20:58 Associated signs and symptoms: Pertinent negatives: fever, GI bleeding, vaginal cp discharge. Severity of symptoms: in the emergency department the symptoms are unchanged despite home interventions. 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 - Infectious Disease History:: Denies. - Social history:: Smoking status: Patient reports the use of cigarette tobacco products, smokes one-half pack cigarettes per day, Patient uses alcohol, every other day. ROS: 21:03 Constitutional: Negative for body aches, chills, fever, cp 21:03 Eyes: Negative for injury, pain, redness, and discharge, cp 21:03 ENT: Negative for drainage from ear(s), ear pain, sore throat, difficulty swallowing, difficulty handling secretions, 21:03 Cardiovascular: Negative for chest pain, palpitations, 21:03 Respiratory: Negative for cough, shortness of breath, wheezing, 21:03 Abdomen/GI: Positive for abdominal pain, vomiting, diarrhea, of the suprapubic area and right lower quadrant, Negative for constipation, black/tarry stool, rectal bleeding, 21:03 Back: Negative for pain at rest, pain with movement, 21:03 : Negative for urinary symptoms, vaginal bleeding, vaginal discharge, 21:03 Neuro: Negative for altered mental status, headache, syncope, 21:03 All other systems are negative, Exam: 21:09 ECG was reviewed by the Attending Physician. cp 21:10 Constitutional: The patient appears in no acute distress, alert, awake, non-toxic, well cp developed, well nourished, uncomfortable, 21:10 Head/Face: Normocephalic, atraumatic. cp 21:10 Eyes: Periorbital structures: appear normal, Conjunctiva: normal, no exudate, no injection, Sclera: no appreciated abnormality, Lids and lashes: appear normal, bilaterally, 21:10 ENT: External ear(s): are unremarkable, Nose: is normal, Mouth: Lips: moist, Oral mucosa: pink and intact, moist, Posterior pharynx: Airway: no evidence of obstruction, patent, 21:10 Neck: ROM/movement: is normal, is supple, without pain, no range of motions limitations, 21:10 Chest/axilla: Inspection: normal, 21:10 Cardiovascular: Rate: tachycardic, Rhythm: regular, 21:10 Respiratory: the patient does not display signs of respiratory distress, Respirations: normal, no use of accessory muscles, no retractions, labored breathing, is not present, Breath sounds: are clear throughout, no decreased breath sounds, no stridor, no wheezing, 21:10 Abdomen/GI: Inspection: abdomen appears normal, Bowel sounds: active, all quadrants, Palpation: soft, in all quadrants, severe abdominal tenderness, in the suprapubic area and right lower quadrant, rebound tenderness, is not appreciated, voluntary guarding, is elicited in the suprapubic area and right lower quadrant, involuntary guarding, is not appreciated, 21:10 Back: CVA tenderness, is absent, 21:10 Neuro: Orientation: to person, place \T\ time. Mentation: is normal, Motor: moves all fours, strength is normal, Vital Signs: 20:25 BP 159 / 113; Pulse 108; Resp 18; Temp 97.4(TE); Pulse Ox 99% ; Weight 58.97 kg; Height nj1 5 ft. 2 in. ; Pain 7/10; 21:13 BP 160 / 100; Pulse 104; Resp 20; Pulse Ox 100% ; Pain 8/10; bm8 22:47 BP 135 / 86; Pulse 99; Resp 18; Temp 98.5; Pulse Ox 99% ; Pain 0/10; bm8 12/11 00:00 BP 141 / 95; Pulse 101; Resp 17 S; Pulse Ox 99% on R/A; jw7 01:00 BP 144 / 82; Pulse 99; Resp 13 S; Pulse Ox 97% on R/A; jw7 01:58 BP 136 / 96; Pulse 95; Resp 15 S; Pulse Ox 98% on R/A; jw7 12/10 20:25 Body Mass Index 23.78 (58.97 kg, 157.48 cm) nj1 12/10 20:25 Pain Scale: Adult nj1 21:13 Pain Scale: Adult bm8 22:47 Pain Scale: Adult bm8 Jessica Coma Score: 12/10 22:47 Eye Response: spontaneous(4). Motor Response: obeys commands(6). Verbal Response: bm8 oriented(5). Total: 15. MDM: 20:32 Patient medically screened. 22:00 Differential diagnosis: gastritis, appendicitis, viral gastroenteritis, cp gastroenteritis, colitis. 12/11 01:31 Data reviewed: vital signs, nurses notes, lab test result(s), radiologic studies, CT cp scan, ultrasound, and as a result, I will discharge patient. 01:31 I considered the following discharge prescriptions or medication management in the emergency department Medications were administered in the Emergency Department. See MAR. Care significantly affected by the following chronic conditions: Liver Disease. Counseling: I had a detailed discussion with the patient and/or guardian regarding the historical points, exam findings, and any diagnostic results supporting the discharge/admit diagnosis, lab results, radiology results, to return to the emergency department if symptoms worsen or persist or if there are any questions or concerns that arise at home. Response to treatment: the patient's symptoms have markedly improved after treatment, and as a result, I will discharge patient. Special discussion: Based on the patient's Hx, exam, and Dx evaluation, there is no indication for emergent surgery or inpatient Tx. It is understood by the patient/guardian that if the Sx's persist or worsen they need to return immediately for re-evaluation. 12/10 20:55 Order name: Basic Metabolic Panel; Complete Time: 21:53 cp 12/11 01:00 Interpretation: Normal except: K 3.3; CL 108; GLUC 118; BUN 5. 12/10 20:55 Order name: CBC with Diff; Complete Time: 21:53 12/11 01:00 Interpretation: Normal except: MCV 101.2; PLT 145; MPV 6.9; JOHN% 34.0; LYM% 50.4. 12/10 20:55 Order name: LFT's; Complete Time: 21:53 12/11 01:01 Interpretation: Normal except: AST 132; ALT 60; ALK 125; BILIT 1.3; BILID 0.5; TP 8.9; cp GLOB 5.1; A/G 0.7. 12/10 20:55 Order name: Magnesium; Complete Time: 21:53 12/10 20:55 Order name: PT-INR; Complete Time: 22:13 12/11 01:02 Interpretation: Reviewed. 12/10 20:55 Order name: Troponin HS; Complete Time: 21:53 12/10 20:55 Order name: Ptt, Activated; Complete Time: 22:13 12/11 01:02 Interpretation: Reviewed. 12/10 20:55 Order name: XRAY Chest (1 view); Complete Time: 22:13 12/10 21:54 Order name: CT Abd/Pelvis - IV Contrast Only 12/11 00:51 Order name: Transvaginal Study Probe [facility] 06 20:55 Order name: Cardiac monitoring; Complete Time: 21:06 12/10 20:55 Order name: EKG - Nurse/Tech; Complete Time: 21:06 12/10 20:55 Order name: IV Saline Lock; Complete Time: 20:55 12/10 20:55 Order name: Labs collected and sent; Complete Time: 20:55 12/10 20:55 Order name: O2 Per Protocol; Complete Time: 20:55 12/10 20:55 Order name: O2 Sat Monitoring; Complete Time: 20:55 12/11 00:59 Order name: PO challenge; Complete Time: 01:56 cp EC/11 21:09 Rate is 103 beats/min. Rhythm is regular. AK interval is normal. QRS interval is cp normal. QT interval is normal. T waves are Inverted in leads aVL, aVR, V2. Interpreted by me. Reviewed by me. Administered Medications: 21:39 Drug: morphine IVP or IV 4 mg IVP once over 4 mins Route: IVP; Infused Over: 4 mins; bm8 Site: right antecubital; 22:47 Follow up: Response: No adverse reaction 8 21:39 Drug: Ondansetron IVP 4 mg IVP once; over 2 minutes Route: IVP; Site: right antecubital;bm8 22:47 Follow up: Response: No adverse reaction [facility] 12/11 01:56 Drug: Potassium PO Effervescent Tablet 50 mEq PO once; dissolve in 4 ounces of water or jw7 juice Route: PO; 01:56 Follow up: Response: No adverse reaction; Medication administered at discharge. jw7 Disposition: 04:04 Co-signature as Attending Physician, Enrique Zhu MD I agree with the assessment sp4 and plan of care. I reviewed the patient's care provided by the Advanced Practice Provider and agree with the diagnosis and treatment plan. Disposition Summary: 12/12/23 01:32 Discharge Ordered Notes: Location: Home cp Problem: new cp Symptoms: have improved cp Condition: Stable cp Diagnosis - Diarrhea, unspecified cp - Vomiting cp - Alcoholic cirrhosis of liver cp - Lower abdominal pain, unspecified cp Followup: cp - With: Private Physician - When: 2 - 3 days - Reason: Recheck today's complaints Discharge Instructions: - Discharge Summary Sheet cp - Abdominal Pain, Adult cp - Food Choices to Help Relieve Diarrhea, Adult cp - Cirrhosis cp - Diarrhea, Adult cp - Vomiting, Adult cp Forms: - Medication Reconciliation Form cp - Antibiotic Education cp - Prescription Opioid Use cp - Patient Portal Instructions cp - Leadership Thank You Letter cp Prescriptions: - Zofran 4 mg Oral Tablet - take 1 tablet ORAL route every 12 hours As needed; 20 tablet; Refills: 0, cp Product Selection Permitted - dicyclomine 20 mg Oral tablet - take 1 tablet ORAL route 3 times per day; 30 tablet; Refills: 0, Product cp Selection Permitted Signatures: Dispatcher [employer] EDNM Lakhwinder Bills PA PA cp Clover Henderson RN RN jwEnrique Wick MD MD sp4 Do Sandhu RN RN nj1 Wilmer Bell RN RN bm8 Corrections: (The following items were deleted from the chart) 12/10 20:56 20:56 BASIC METABOLIC PANEL+C.LAB.BRZ ordered. EDMS EDMS 20:56 20:56 CBC+H.LAB.BRZ ordered. EDMS EDMS 20:56 20:56 HEPATIC FUNCTION+C.LAB.BRZ ordered. EDMS EDMS 20:56 20:56 MAGNESIUM+C.LAB.BRZ ordered. EDMS EDMS 20:56 20:56 PROTIME (+INR)+COAG.LAB.BRZ ordered. EDMS EDMS 20:56 20:56 Troponin High Sensitivity+C.LAB.BRZ ordered. EDMS EDMS 20:56 20:56 PTT, ACTIVATED+COAG.LAB.BRZ ordered. EDMS EDMS 20:56 20:56 Chest Single View+RAD.RAD.BRZ ordered. EDMS EDMS 12/11 00:51 00:12 Pelvis Complete+US.RAD.BRZ ordered. EDMS EDMS
[2023-12-12] MEDS ORDERED: POTASSIUM 25 MEQ EFFERV TAB ONE (01:50)
[2023-12-12 02:30] VITALS: BP 136/96; TEMP 98.5; O2SAT 98
--- NOTE | 2023-12-12 12:47 | RAD REPORT ---
EXAM DESCRIPTION: CT Abdomen and Pelvis With Intravenous Contrast CLINICAL HISTORY: The patient is 38 years old and is Female; lower abdomen pain TECHNIQUE: Axial computed tomography images of the abdomen and pelvis with intravenous contrast. S agittal and coronal reformatted images were created and reviewed. This CT exam was performed using one or more of the following dose reduction techniques: automated exposure control, adjustment of t he mA and/or kV according to patient size, and/or use of iterative reconstruction technique. COMPARISON: No relevant prior studies available. FINDINGS: Lung bases: Unremarkable. No mass. No consolidation. ABDOMEN: Liver: Hepatomegaly with diffuse hepatic steatosis. Gallbladder and bile ducts: Gallbladder is surgically absent. No ductal dilation. Pancreas: Unremarkable. No mass. No ductal dilation. Spleen: Unremarkable. No splenomegaly. Adrenals: Unremarkable. No mass. Kidneys and ureters: Unremarkable. No solid mass. No hydronephrosis. Stomach and bowel: Unremarkable. No obstruction. No mucosal thickening. PELVIS: Appendix: The appendix is normal. Bladder: Unremarkable. Reproductive: Unremarkable as visualized. ABDOMEN and PELVIS: Intraperitoneal space: Unremarkable. No free air. No significant fluid collection. Bones/joints: No acute fracture. No dislocation. Soft tissues: Unremarkable. Vasculature: Unremarkable. No abdominal aortic aneurysm. Lymph nodes: Unremarkable. No enlarged lymph nodes. IMPRESSION: No acute finding in the abdomen/pelvis. Electronically signed by: Freddy James MD 12/11/2023 11:53 PM CDT 8 Due to temporary technical issues with the PACS/Fluency reporting system, reports are being signed by the in house radiologist without review as a courtesy to ensure prompt reporting. The interpreting r adiologist is fully responsible for the content of the report.
--- NOTE | 2023-12-12 13:01 | RAD REPORT ---
EXAM DESCRIPTION: US PELVIS TRANSVAGINAL CLINICAL HISTORY: Female, 38 years old, lower abdomen pain COMPARISON: CT abdomen/pelvis 06/13/2023 TECHNIQUE: Transvaginal ultrasound of the pelvis. FINDINGS: UTERUS: Measures 6.5 x 2.5 x 3.3 cm. Homogeneous myometrium without discrete lesion. Endom etrial stripe thickness measures 4 mm. A moderate amount of hypoechoic fluid with low-level internal echoes is present within the mid to lower endometrial canal, extending to the endocervical canal. RIGHT OVARY: Not visualized due to position and/or overlying bowel gas. LEFT OVARY: Measures 2.3 x 1.3 x 1.4 cm, with volume of 2 mL. Normal morphology. Normal color and spe ctral Doppler flow. FREE FLUID: No visualized free fluid. IMPRESSION: 1. Small amount of mildly complex fluid within the endometrial and endocervical canal, may be physiologic related to phase of menstrual cycle. No other uterine abnormality. Correlate with symptoms and physical exam. 2. Unremarkable left ovary. Nonvisualized right ovary. Electronically signed by: Rjei Melvin MD 12/12/2023 01:23 AM CDT Due to temporary technical issues with the PACS/Fluency reporting system, reports are being signed by the in house radiologist without review as a courtesy to ensure prompt reporting. The interpreting r adiologist is fully responsible for the content of the report.
--- NOTE | 2023-12-13 12:14 | EKG ---
Test Date: 2023-12-11 Test Time: 21:03:30 Peoplesoft Programmer: ONEAL MEASUREMENT RESULTS: Intervals: Rate: 103 ME: 128 QRSD: 82 QT: 360 QTc: 471 [place]: P: 79 ME: 128 QRS: 45 T: 60 INTERPRETIVE STATEMENTS: Sinus tachycardia Septal infarct, age undetermined Abnormal ECG Compared to ECG 04/18/2023 20:48:38 Myocardial infarct finding now present Sinus rhythm no longer present Short ME interval no longer present ST (T wave) deviation no longer present Prolonged QT interval no longer present Electronically Signed On 12-13-23 12:13:13 CDT by Benny Zambrano
== END 2023-12-12 02:00 | disposition home or self-care (01) ==
LOC: ER 20:20
DX: R19.7 Diarrhea, unspecified (principal); R11.10 Vomiting, unspecified; K70.30 Alcoholic cirrhosis of liver without ascites; R10.30 Lower abdominal pain, unspecified; F10.20 Alcohol dependence, uncomplicated
CPT/HCPCS: 93005; 85025; 80048; 36415; 83735; 85610; 80076; 85730; 84484; 74177; 71045; 76830; 96375; 96374; 99285; Q9967; J2405

== ENCOUNTER 2023-12-15 21:48 | Emergency (ER) | payer BC ==
[2023-12-15] MEDS ORDERED: NA CHLORIDE 0.9% 1,000 ML ONE (22:01)
--- NOTE | 2023-12-15 22:23 | RAD REPORT ---
EXAM DESCRIPTION: Huy Single View12/15/2023 10:05 pm CLINICAL HISTORY: Chest pain COMPARISON: December 11, 2023 FINDINGS: The lungs appear clear of acute infiltrate. The heart is normal size IMPRESSION: No acute abnormalities displayed
[2023-12-15] MEDS ORDERED: ONDANSETRON 4 MG/2 ML VIAL ONE (22:25)
[2023-12-15] MEDS ORDERED: FENTANYL CITR 100 MCG/2 ML ONE (22:26)
[2023-12-15 22:27] LABS: Absolute Basophils 0.1 K/uL (0-0.5); Absolute Eosinophils 0.2 K/uL (0-0.5); Absolute Lymphocytes (CBC) 2.7 K/uL (0.7-4.9); Absolute Monocytes 0.7 K/uL (0.1-1.3); Absolute Neutrophil 3.4 K/uL (1.8-8.0); Basophils % 0.9 % (0-1.3); Eosinophils % 2.3 % (0-4.4); Hematocrit 37.7 % (36.0-45.0); Hemoglobin 12.8 g/dL (12.0-15.0); Lymphocytes % 38.7 % (15.3-44.8); MCHC 33.9 g/dL (32.0-36.0); MCV 100.4 fL (80-100); MPV 6.5 fL (7.6-11.3); Monocytes % 9.8 % (3.3-12.3); Neutrophils % 48.3 % (41.7-73.7); Nucleated Red Blood Cells % 0.2 % (0-0); Platelets 108 thou/uL (152-406); RBC Red Blood Cell Count 3.76 M/uL (3.86-4.86); Red Cell Distribution Width 13.2 % (12.1-15.2)
[2023-12-15 22:36] LABS: PT Prothrombin Time 13.7 SECONDS (9.5-12.5); PTT, Activated Partial Thromb 45.2 SECONDS (24.3-36.9); Protime INR 1.25
[2023-12-15 22:38] LABS: Barbiturates NEGATIVE (NEGATIVE); Benzodiazepines NEGATIVE (NEGATIVE); Cocaine NEGATIVE (NEGATIVE); METHAMPHETAM NEGATIVE (NEGATIVE); Methadone NEGATIVE (NEGATIVE); Opiates NEGATIVE (NEGATIVE); Phencyclidine NEGATIVE (NEGATIVE); THC Cannibis NEGATIVE (NEGATIVE)
[2023-12-15 22:40] LABS: Specific Gravity 1.008 (1.005-1.030)
[2023-12-15 22:41] LABS: Specific Gravity 1.008 (1.005-1.030); Urine Bacteria <20 /HPF (<20); Urine Bilirubin NEGATIVE (Negative); Urine Blood 2+ (Negative); Urine Clarity Extremely Turbid (Clear); Urine Color Light-Yellow (Yellow); Urine Culture Reflex Order NOT NEEDED; Urine Glucose NEGATIVE (Negative); Urine Ketones NEGATIVE (Negative); Urine Microscopic Reflex YN ORDER UMIC; Urine Mucus Slight /HPF (None Seen); Urine Nitrite NEGATIVE (Negative); Urine Protein TRACE (Negative); Urine RBC <5 /HPF (None Seen); Urine Urobilinogen Normal (Normal); Urine WBC <5 /HPF (<5)
[2023-12-15 22:46] LABS: Albumin 3.8 g/dL (3.4-5.0); Albumin/Globulin Ratio 0.8 (1.1-1.8); Anion Gap 12.7 mEq/L (5.0-15.0); Bilirubin Direct 0.5 mg/dL (0-0.2); Bilirubin Indirect, Calculated 0.7 mg/dL (0.2-0.8); Bilirubin Total 1.2 mg/dL (0.2-1.0); Globulin 4.8 g/dL (2.3-3.5); Potassium 3.7 mEq/L (3.5-5.1); Protein, Total 8.6 g/dL (6.4-8.2); Troponin High Sensitivity 3.1 pg/mL (<58.9)
--- NOTE | 2023-12-16 00:17 | ER ---
Nurse's Notes [facility] Name: Sylvia Cruz Age: 38 yrs Sex: Female : 1985 Arrival Date: 12/15/2023 Time: 21:48 Bed 5 Private MD: Diagnosis: Syncope Near;Unspecified injury of head, initial encounter;Epistaxis;Abdominal pain, Generalized-nonspecific colitis Presentation: 12/14 21:51 Chief complaint: Patient states: I have severe abd pain in my lower right area that bm8 radiates down into my groin. Coronavirus screen: Vaccine status: Patient reports receiving the 2nd dose of the covid vaccine. At this time, the client does not indicate any symptoms associated with coronavirus-19. Ebola Screen: Patient negative for fever greater than or equal to 101.5 degrees Fahrenheit, and additional compatible Ebola Virus Disease symptoms Patient denies exposure to infectious person. Patient denies travel to an Ebola-affected area in the 21 days before illness onset. No symptoms or risks identified at this time. Initial Sepsis Screen: Does the patient meet any 2 criteria? No. Patient's initial sepsis screen is negative. Does the patient have a suspected source of infection? No. Patient's initial sepsis screen is negative. Risk Assessment: Do you want to hurt yourself or someone else? Patient reports no desire to harm self or others. Onset of symptoms is unknown. Care prior to arrival: IV initiated. 20 GA, in the left antecubital area. 21:51 Method Of Arrival: EMS: [facility] bm8 21:51 Acuity: BONITA 3 bm8 Triage Assessment: 21:51 General: Appears in no apparent distress. uncomfortable, Behavior is cooperative, bm8 appropriate for age, anxious. Pain: Complains of pain in right lower quadrant Pain radiates to right femoral area and right inguinal area Pain currently is 8 out of 10 on a pain scale. Quality of pain is described as aching, crampy, sharp. EENT: No deficits noted. No signs and/or symptoms were reported regarding the EENT system. Neuro: No deficits noted. Level of Consciousness is awake, alert, obeys commands, Oriented to person, place, time, situation. Cardiovascular: No deficits noted. Capillary refill < 3 seconds Patient's skin is warm and dry. Respiratory: Airway is patent Trachea midline Respiratory effort is even, unlabored, Respiratory pattern is regular, symmetrical. GI: Abdomen is flat, non-distended, Bowel sounds present X 4 quads. Abdomen is tender to palpation in right lower quadrant Reports lower abdominal pain, Pain is 8 out of 10 on a pain scale. : No signs and/or symptoms were reported regarding the genitourinary system. Derm: No signs and/or symptoms reported regarding the dermatologic system. Musculoskeletal: No signs and/or symptoms reported regarding the musculoskeletal system. MANAGER UROLOGY: 21:51 unknown bm8 Historical: - Allergies: 21:51 No Known Allergies; bm8 - Home Meds: 21:51 aripiprazole 5 mg Oral tablet daily [Active]; chlordiazepoxide HCl 25 mg Oral capsule 2 bm8 caps 4 times per day [Active]; duloxetine 20 mg Oral capsule daily [Active]; hydroxyzine HCl 50 mg Oral tablet 6 times per day [Active]; mirtazapine 15 mg Oral tablet nightly [Active]; pantoprazole 40 mg Oral granules delayed release for susp packet daily [Active]; sertraline 25 mg Oral tablet daily [Active]; Xanax 5 mg Oral daily for Anxiety with Depression, Panic Disorder [Active]; - PMHx: 21:51 Alcoholism; Bipolar disorder; cirrhosis of liver; Depression; Hypertension; bm8 - PSHx: 21:51 Cholecystectomy; Sternum Reconstruction; bm8 - Immunization history:: Adult Immunizations unknown. - Infectious Disease History:: Denies. - Social history:: Smoking status: unknown. Screenin:30 [facility] ED Fall Risk Assessment (Adult) History of falling in the last 3 months, bm8 including since admission No falls in past 3 months (0 pts) Confusion or Disorientation No (0 pts) Intoxicated or Sedated Yes (3 pts) Impaired Gait No (0 pts) Mobility Assist Device Used No (0 pt) Altered Elimination No (0 pt). Abuse screen: Denies threats or abuse. Nutritional screening: No deficits noted. Tuberculosis screening: No symptoms or risk factors identified. Assessment: 22:30 Reassessment: Patient appears in no apparent distress at this time. No changes from bm8 previously documented assessment. Patient and/or family updated on plan of care and expected duration. Pain level reassessed. Patient is alert, oriented x 3, equal unlabored respirations, skin warm/dry/pink. 22:50 Reassessment: Patient appears in no apparent distress at this time. Patient and/or bm8 family updated on plan of care and expected duration. Pain level reassessed. Patient is alert, oriented x 3, equal unlabored respirations, skin warm/dry/pink. pt reports after medication all pain is gone. currently awaiting on all results to make diagnosis Patient denies pain at this time. 23:45 Reassessment: Patient appears in no apparent distress at this time. No changes from bm8 previously documented assessment. Patient and/or family updated on plan of care and expected duration. Pain level reassessed. Patient is alert, oriented x 3, equal unlabored respirations, skin warm/dry/pink. Patient denies pain at this time. 12/15 00:33 Reassessment: Patient appears in no apparent distress at this time. No changes from bm8 previously documented assessment. Patient and/or family updated on plan of care and expected duration. Pain level reassessed. Patient is alert, oriented x 3, equal unlabored respirations, skin warm/dry/pink. Vital Signs: 12/14 21:51 BP 150 / 90; Pulse 98; Resp 20; Temp 98.8; Pulse Ox 99% ; Weight 61.23 kg; Height 5 ft. bm8 2 in. ; Pain 8/10; 22:50 BP 138 / 93; Pulse 102; Resp 16; Temp 98.8; Pulse Ox 99% ; Pain 0/10; bm8 23:45 BP 131 / 81; Pulse 102; Resp 17; Temp 98.7; Pulse Ox 95% ; Pain 0/10; bm8 12/15 00:33 BP 123 / 75; Pulse 83; Resp 18; Temp 98.7; Pulse Ox 98% ; Pain 0/10; bm8 12/14 21:51 Body Mass Index 24.69 (61.23 kg, 157.48 cm) bm8 12/14 21:51 Pain Scale: Adult bm8 22:50 Pain Scale: Adult bm8 23:45 Pain Scale: Adult bm8 12/15 00:33 Pain Scale: Adult bm8 Jessica Coma Score: 12/14 22:30 Eye Response: spontaneous(4). Motor Response: obeys commands(6). Verbal Response: bm8 oriented(5). Total: 15. 22:50 Eye Response: spontaneous(4). Motor Response: obeys commands(6). Verbal Response: bm8 oriented(5). Total: 15. 12/15 00:33 Eye Response: spontaneous(4). Motor Response: obeys commands(6). Verbal Response: bm8 oriented(5). Total: 15. ED Course: 12/14 21:51 Patient arrived in ED. rv1 21:51 Arm band placed on right wrist. Patient placed in an exam room, on a stretcher, on bm8 oxygen, on lunchroom monitor, on pulse oximetry. 21:54 Rika Hinds FNP-C is PHCP. kb 21:54 Lakhwinder Blackmon MD is Attending Physician. kb 21:58 Wilmer Bell, SARAHI is Primary Nurse. bm8 22:07 Chest Single View XRAY In Process Unspecified. EDMS 22:23 Triage completed. bm8 22:30 Patient has correct armband on for positive identification. Call light in reach. Side bm8 rails up X 1. Client placed on continuous cardiac and pulse oximetry monitoring. NIBP monitoring applied. media monitor on. Pulse ox on. NIBP on. Door closed. Noise minimized. Visitors limited. Warm blanket given. Verbal reassurance given. Head of bed elevated. 22:30 No provider procedures requiring assistance completed. Initial lab(s) drawn, by rosa m alonso sent to lab. Urine collected: clean catch specimen, clear, EKG done, by ED staff, reviewed by Lakhwinder Blackmon MD. Inserted saline lock: 20 gauge in left antecubital area, using aseptic technique. Blood collected. 23:31 CT Head Brain wo Cont In Process Unspecified. EDMS 23:36 CT Abd/Pelvis - IV Contrast Only In Process Unspecified. EDMS 12/15 00:16 Lakhwinder Blackmon MD is Referral Physician. kb 00:33 Provided Education on: post er care, follow up with GI doc. bm8 00:33 IV discontinued, intact, bleeding controlled, No redness/swelling at site. Pressure bm8 dressing applied. Administered Medications: 12/14 22:19 Drug: NS 0.9% IV 1000 ml IV at 1000 ml once Route: IV; Rate: 1000 ml; Site: left bm8 antecubital; 12/15 00:22 Follow up: Response: No adverse reaction; IV Status: Completed infusion; IV Intake: bm8 1000ml 12/14 22:30 Drug: fentaNYL (PF) IVP 25 mcg IVP once Route: IVP; Site: left antecubital; lg3 12/15 00:22 Follow up: Response: No adverse reaction bm8 12/14 22:30 Drug: Ondansetron IVP 4 mg IVP once; over 2 minutes Route: IVP; Site: left antecubital; lg3 12/15 00:22 Follow up: Response: No adverse reaction bm8 00:30 Drug: Ciprofloxacin PO 500 mg PO once Route: PO; bm8 00:33 Follow up: Response: Medication administered at discharge. bm8 Medication: 12/14 22:30 VIS not applicable for this client. bm8 Intake: 12/15 00:22 IV: 1000ml; Total: 1000ml. bm8 Outcome: 00:17 Discharge ordered by MD. kb 00:33 Discharged to home ambulatory, bm8 00:33 Condition: stable 00:33 Discharge instructions given to patient, family, Instructed on discharge instructions, follow up and referral plans. no drinking with medication, no driving heavy equipment, medication usage, safety practices, Demonstrated understanding of instructions, follow-up care, medications, Prescriptions given X 1, 00:34 Patient left the ED. bm8 Signatures: Dispatcher [employer] EDMS Rika Hinds, TROUBLE LOCATER-C TROUBLE LOCATER-Cherry Stearns, RN RN lg3 Luiza Carreon rv1 Wilmer Bell RN RN bm8 Corrections: (The following items were deleted from the chart) 00:22 00:22 IV Status: Completed infusion; IV Intake: 1000ml bm8 bm8
--- NOTE | 2023-12-16 00:17 | EDPHYS ---
Physician Documentation [facility] Name: Sylvia Cruz Age: 38 yrs Sex: Female : 1985 Arrival Date: 12/15/2023 Time: 21:48 Bed 5 Private MD: ED Physician Lakhwinder Blackmon HPI: 12/15 00:09 This 38 yrs old Female presents to ER via EMS with complaints of Abdominal Pain. 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 Pt had a nosebleed, felt weak and reports a syncopal episode which caused her to hit the right side of her head. Bystander reports pt yelled out that she was going to pass out, got down to her knees and then fell over. . CREDIT REPRESENTATIVE: 12/14 21:51 unknown bm8 Historical: - Allergies: 21:51 No Known Allergies; bm8 - Home Meds: 21:51 aripiprazole 5 mg Oral tablet daily [Active]; chlordiazepoxide HCl 25 mg Oral capsule 2 bm8 caps 4 times per day [Active]; duloxetine 20 mg Oral capsule daily [Active]; hydroxyzine HCl 50 mg Oral tablet 6 times per day [Active]; mirtazapine 15 mg Oral tablet nightly [Active]; pantoprazole 40 mg Oral granules delayed release for susp packet daily [Active]; sertraline 25 mg Oral tablet daily [Active]; Xanax 5 mg Oral daily for Anxiety with Depression, Panic Disorder [Active]; - PMHx: 21:51 Alcoholism; Bipolar disorder; cirrhosis of liver; Depression; Hypertension; bm8 - PSHx: 21:51 Cholecystectomy; Sternum Reconstruction; bm8 - Immunization history:: Adult Immunizations unknown. - Infectious Disease History:: Denies. - Social history:: Smoking status: unknown. ROS: 12/15 00:08 Constitutional: As per HPI kb Exam: 00:08 Constitutional: This is a well developed, well nourished patient who is awake, alert, kb and in no acute distress. Head/Face: Normocephalic, atraumatic. ENT: Moist Mucous membranes Cardiovascular: Regular rate Respiratory: Respirations even and unlabored. No increased work of breathing. Talking in full sentences Skin: Warm, dry with normal turgor. Normal color. MS/ Extremity: Pulses equal, no cyanosis. Neurovascular intact. Full, normal range of motion. Neuro: Awake and alert, GCS 15, oriented to person, place, time, and situation. Moves all extremities. Normal gait. 00:08 Abdomen/GI: Inspection: distension, that is mild, Bowel sounds: normal, Palpation: soft, in all quadrants, mild abdominal tenderness, in the right upper quadrant, moderate abdominal tenderness, in the right lower quadrant, 00:17 ECG was reviewed by the Attending Physician. Vital Signs: 12/14 21:51 BP 150 / 90; Pulse 98; Resp 20; Temp 98.8; Pulse Ox 99% ; Weight 61.23 kg; Height 5 ft. bm8 2 in. ; Pain 8/10; 22:50 BP 138 / 93; Pulse 102; Resp 16; Temp 98.8; Pulse Ox 99% ; Pain 0/10; bm8 23:45 BP 131 / 81; Pulse 102; Resp 17; Temp 98.7; Pulse Ox 95% ; Pain 0/10; bm8 12/15 00:33 BP 123 / 75; Pulse 83; Resp 18; Temp 98.7; Pulse Ox 98% ; Pain 0/10; bm8 12/14 21:51 Body Mass Index 24.69 (61.23 kg, 157.48 cm) bm8 12/14 21:51 Pain Scale: Adult bm8 22:50 Pain Scale: Adult bm8 23:45 Pain Scale: Adult bm8 12/15 00:33 Pain Scale: Adult bm8 Jessica Coma Score: 12/14 22:30 Eye Response: spontaneous(4). Motor Response: obeys commands(6). Verbal Response: bm8 oriented(5). Total: 15. 22:50 Eye Response: spontaneous(4). Motor Response: obeys commands(6). Verbal Response: bm8 oriented(5). Total: 15. 12/15 00:33 Eye Response: spontaneous(4). Motor Response: obeys commands(6). Verbal Response: bm8 oriented(5). Total: 15. MDM: 12/14 21:54 Patient medically screened. 12/15 00:08 Differential diagnosis: appendicitis, non-specific abd pain, urinary tract infection, kb ovarian cyst, arrhythmia, vasovagal syncope. Data reviewed: vital signs, nurses notes. Historians other than the Patient: EMS: [facility]. Counseling: I had a detailed discussion with the patient and/or guardian regarding the historical points, exam findings, and any diagnostic results supporting the discharge/admit diagnosis, lab results, radiology results, the need for outpatient follow up, a family practitioner, a ambulette driver, to return to the emergency department if symptoms worsen or persist or if there are any questions or concerns that arise at home. 00:09 ED course: LFTs similar to previous. Pt educated to follow up with GI. 12/14 21:55 Order name: Basic Metabolic Panel; Complete Time: 22:48 kb 12/14 21:55 Order name: CBC with Diff; Complete Time: 22:40 kb 12/14 21:55 Order name: Hepatic Function; Complete Time: 22:48 kb 12/14 21:55 Order name: Magnesium; Complete Time: 22:48 kb 12/14 21:55 Order name: Test, Urine; Complete Time: 22:40 kb 12/14 21:55 Order name: Protime (+inr); Complete Time: 22:40 kb 12/14 21:55 Order name: Ptt, Activated; Complete Time: 22:40 kb 12/14 21:55 Order name: Troponin High Sensitivity; Complete Time: 22:48 kb 12/14 21:55 Order name: UDS; Complete Time: 22:40 kb 12/14 21:55 Order name: Urinalysis w/ reflexes; Complete Time: 22:48 kb 12/14 21:55 Order name: CT Head Brain wo Cont 12/14 21:55 Order name: Chest Single View XRAY; Complete Time: 22:30 kb 12/14 21:55 Order name: CT Abd/Pelvis - IV Contrast Only 12/14 21:55 Order name: EKG; Complete Time: 21:56 kb 12/14 21:55 Order name: Cardiac monitoring; Complete Time: 22:19 kb 12/14 21:55 Order name: EKG - Nurse/Tech; Complete Time: 22:19 kb 12/14 21:55 Order name: IV Saline Lock; Complete Time: 22:19 kb 12/14 21:55 Order name: Labs collected and sent; Complete Time: 22:19 kb 12/14 21:55 Order name: NPO; Complete Time: 22:19 kb 12/14 21:55 Order name: O2 Per Protocol; Complete Time: 22:19 kb 12/14 21:55 Order name: O2 Sat Monitoring; Complete Time: 22:19 kb EC:17 Rate is 102 beats/min. Rhythm is regular. QRS Friendly is Normal. IA interval is normal at kb 142 msec. QRS interval is normal at 74 msec. QT interval is normal at 474 msec. Administered Medications: 12/14 22:19 Drug: NS 0.9% IV 1000 ml IV at 1000 ml once Route: IV; Rate: 1000 ml; Site: left bm8 antecubital; 12/15 00:22 Follow up: Response: No adverse reaction; IV Status: Completed infusion; IV Intake: bm8 1000ml 12/14 22:30 Drug: fentaNYL (PF) IVP 25 mcg IVP once Route: IVP; Site: left antecubital; 3 12/15 00:22 Follow up: Response: No adverse reaction [facility] 12/14 22:30 Drug: Ondansetron IVP 4 mg IVP once; over 2 minutes Route: IVP; Site: left antecubital; 3 12/15 00:22 Follow up: Response: No adverse reaction bm8 00:30 Drug: Ciprofloxacin PO 500 mg PO once Route: PO; bm8 00:33 Follow up: Response: Medication administered at discharge. bm8 Disposition Summary: 12/16/23 00:17 Discharge Ordered Notes: Location: Home kb Condition: Stable kb Diagnosis - Syncope Near kb - Unspecified injury of head, initial encounter kb - Epistaxis kb - Abdominal pain, Generalized - nonspecific colitis kb Followup: kb - With: Emergency Department - When: As needed - Reason: Worsening of condition Followup: kb - With: Private Physician - When: 2 - 3 days - Reason: Recheck today's complaints, Continuance of care, Re-evaluation by your physician Discharge Instructions: - Discharge Summary Sheet kb - Near-Syncope, [id number] kb - Abdominal Pain, Adult, [id number] kb - Head Injury, Adult, [id number] kb Forms: - Medication Reconciliation Form kb - Antibiotic Education kb - Prescription Opioid Use kb - Patient Portal Instructions kb - Leadership Thank You Letter kb - Work release form tm6 Prescriptions: - Cipro 500 mg Oral Tablet - take 1 tablet ORAL route every 12 hours for 10 days; 20 tablet; Refills: 0, kb Product Selection Permitted Signatures: Dispatcher [employer] EDTN Maco Hindsistin, KENO WRITER-C KENO WRITER-Ckb Cherry Gonsalez, RN RN lg3 Wilmer Bell, RN RN bm8 Corrections: (The following items were deleted from the chart) 12/14 21:56 21:56 BASIC METABOLIC PANEL+C.LAB.BRZ ordered. EDTN EDMS 21:56 21:56 CBC+H.LAB.BRZ ordered. EDTN EDMS 21:56 21:56 HEPATIC FUNCTION+C.LAB.BRZ ordered. EDTN EDMS 21:56 21:56 MAGNESIUM+C.LAB.BRZ ordered. EDTN EDMS 21:56 21:56 Test, Urine+UC.LAB.BRZ ordered. EDTN EDTN 21:56 21:56 PROTIME (+INR)+COAG.LAB.BRZ ordered. EDTN EDMS 21:56 21:56 PTT, ACTIVATED+COAG.LAB.BRZ ordered. EDTN EDTN 21:56 21:56 Troponin High Sensitivity+C.LAB.BRZ ordered. EDTN EDMS 21:56 21:56 URINE DRUG SCREEN+UC.LAB.BRZ ordered. EDTN EDMS 21:56 21:56 Urinalysis+U.LAB.BRZ ordered. [facility] 12/15 00:09 00:08 Counseling: I had a detailed discussion with the patient and/or guardian jadon regarding the historical points, exam findings, and any diagnostic results supporting the discharge/admit diagnosis, lab results, radiology results, the need for outpatient follow up, a family practitioner, to return to the emergency department if symptoms worsen or persist or if there are any questions or concerns that arise at home, kb
[2023-12-16] MEDS ORDERED: CIPROFLOXACIN HCL 500 MG TAB ONE (00:31)
[2023-12-16 01:30] VITALS: BP 123/75; TEMP 98.7; O2SAT 98
--- NOTE | 2023-12-16 18:51 | RAD REPORT ---
EXAM DESCRIPTION: Abdomen Pelvis W Contrast CLINICAL HISTORY: ABD PAIN COMPARISON: 12/11/2023 TECHNIQUE: CT of the abdomen and pelvis performed following IV administration of iodinated contras t. This exam was performed according to our departmental dose-optimization program, which includes au tomated exposure control, adjustment of the mA and/or kV according to patient size and/or use of iter ative reconstruction technique. FINDINGS: Lung Bases: The visualized lung bases are clear. Bones: No acute osseous abnormality identified. Abdomen: Liver: Hepatomegaly with heterogeneous hepatic parenchyma which is firm dominantly decreased in densi ty. Gallbladder: Prior cholecystectomy. Spleen, Pancreas, and Adrenal Glands: Splenomegaly. The pancreas and adrenal glands are unremarkabl e. Kidneys: No hydronephrosis or obstructing calculus. Vasculature: The aorta and IVC have normal caliber and position. The portal vein is patent. The pro ximal visceral and renal arteries are patent. Stomach: The stomach and duodenum have normal course. Other: No free intraperitoneal air. No free fluid or lymphadenopathy. Pelvis: Bladder: Urinary bladder is unremarkable. Bowel: No dilated loops of large or small bowel. Wall thickening of the ascending, transverse, and sigmoid colon. Appendix: Normal appendix. Pelvis: Uterus is not enlarged. IMPRESSION: 1. Wall thickening of the ascending, transverse, and sigmoid colon. These findings cou ld be seen with nonspecific colitis. 2. Hepatomegaly and hepatic steatosis. 3. Splenomegaly. Electronically signed by: Humberto Bullard DO 12/16/2023 12:00 AM CDT 4ZDM Due to temporary technical issues with the PACS/[employer] reporting system, reports are being signed by the in house radiologists without review as a courtesy to insure prompt reporting. The interpreting radiologist is fully responsible for the content of the report.
--- NOTE | 2023-12-16 18:52 | RAD REPORT ---
EXAM DESCRIPTION: CT of the head without contrast CLINICAL HISTORY: Syncope;Pain COMPARISON: 01/30/2023 TECHNIQUE: Axial CT of the head obtained from the skull apex to the skull base without contrast. Thi s exam was performed according to our departmental dose-optimization program, which includes automate d exposure control, adjustment of the mA and/or kV according to patient size and/or use of iterative reconstruction technique. FINDINGS: No acute intracranial hemorrhage identified. No mass, mass effect, shift of the midline, a bnormal extra-axial fluid collection or CT evidence of acute ischemic change identified. The ventricu lar system is unremarkable. No acute abnormalities of the supratentorial white matter, basal gangli a, cerebellum, or brainstem. The visualized paranasal sinuses and the mastoids are relatively well aerated. No skull fracture id entified. Visualized orbits and globes are unremarkable. IMPRESSION: 1. No acute intracranial abnormality identified. Electronically signed by: Humberto Bullard DO 12/15/2023 11:56 PM CDT RP 4ZDM Due to temporary technical issues with the PACS/Fluency reporting system, reports are being signed by the in house radiologists without review as a courtesy to insure prompt reporting. The interpreting radiologist is fully responsible for the content of the report.
--- NOTE | 2023-12-17 14:56 | EKG ---
Test Date: 2023-12-15 Test Time: 22:07:51 Senior Major Gifts Officer: PHILL MEASUREMENT RESULTS: Intervals: Rate: 102 IL: 142 QRSD: 74 QT: 364 QTc: 474 [place]: P: 66 IL: 142 QRS: 30 T: 32 INTERPRETIVE STATEMENTS: Sinus tachycardia Otherwise normal ECG Compared to ECG 12/11/2023 21:03:30 Myocardial infarct finding no longer present Electronically Signed On 12-17-23 14:51:48 CDT by Wilmer Gzuman
== END 2023-12-16 00:34 | disposition home or self-care (01) ==
LOC: ER 21:48
DX: R55 Syncope and collapse (principal); S09.90XA Unspecified injury of head, initial encounter; R04.0 Epistaxis; K52.9 Noninfective gastroenteritis and colitis, unspecified; F10.20 Alcohol dependence, uncomplicated
CPT/HCPCS: 96361; 93005; 85025; 81001; 80048; 36415; 83735; 81025; 85610; 80076; 85730; 84484; 80307; 70450; 74177; 71045; 96375; 96374; 99285; Q9967; J3010; J2405; J7030

== ENCOUNTER 2024-08-12 21:54 | Emergency (ER) | payer MEDICARE, OTHER ==
[2024-08-12] MEDS ORDERED: Magnesium Sulfate 2gm IVPB 2 G/50 ML BAG IV ONE (22:22)
[2024-08-12] MEDS ORDERED: DIPHENHYDRAMINE 50 MG/ML VIAL ONE (22:22)
[2024-08-12] MEDS ORDERED: METOCLOPRAMIDE 10 MG/2mL INJ ONE (22:22)
[2024-08-12] MEDS ORDERED: NA CHLORIDE 0.9% 500 ML ONE (22:22)
[2024-08-12 22:42] LABS: Absolute Eosinophils 0.2 K/uL (0-0.5); Absolute Lymphocytes (CBC) 1.9 K/uL (0.7-4.9); Absolute Monocytes 0.6 K/uL (0.1-1.3); Absolute Neutrophil 2.9 K/uL (1.8-8.0); Basophils % 0.9 % (0-1.3); Eosinophils % 2.9 % (0-4.4); Hematocrit 40.2 % (36.0-45.0); Hemoglobin 13.6 g/dL (12.0-15.0); MCHC 33.9 g/dL (32.0-36.0); MCV 100.2 fL (80-100); MPV 6.6 fL (7.6-11.3); Monocytes % 10.6 % (3.3-12.3); Neutrophils % 51.6 % (41.7-73.7); Nucleated Red Blood Cells % 0.1 % (0-0); Platelets 104 thou/uL (152-406); RBC Red Blood Cell Count 4.01 M/uL (3.86-4.86)
[2024-08-12 22:56] LABS: Anion Gap 11.8 mEq/L (5.0-15.0); BUN Blood Urea Nitrogen 8 mg/dL (7-18); Bicarbonate 23 mEq/L (21-32); Glomerular Filtration Rate 118 ml/min (=/>90); Glucose Level 113 mg/dL (74-106); Potassium 3.8 mEq/L (3.5-5.1); Sodium Level 140 mEq/L (136-145)
[2024-08-12 22:57] LABS: Troponin High Sensitivity < 3.0 pg/mL (<58.9)
--- NOTE | 2024-08-12 22:59 | RAD REPORT ---
EXAMINATION: ONE VIEW CHEST XR CLINICAL INDICATION: Female, 39 years old.,CHEST PAIN TECHNIQUE: Frontal chest projection is submitted. Examination is limited by patient positioning and t echnique. COMPARISON: 12/15/2023 FINDINGS: The lungs are well inflated and clear. Near-complete improvement of central interstitial prominence. Superimposed soft tissues resultant some underpenetration. No pneumothorax or sizable effusion. The heart is normal in size. Mediastinal contours are unremarkable. IMPRESSION: No acute intrathoracic abnormalities.
--- NOTE | 2024-08-13 00:39 | RAD REPORT ---
CLINICAL HISTORY: Left sided paresthesias, head ache, nausea and vomiting. COMPARISON: CT Head 12/15/[address] Head and Cervical Spine Chest Abdomen Pelvis 01/30/2023. TECHNIQUE: CT HEAD ANGIOGRAPHY WITH IV CONTRAST, CT NECK ANGIOGRAPHY WITH IV CONTRAST on 08/12/2024 10 :00 PM SLAG WORKER This exam was performed according to our departmental dose-optimization program, which includes autom ated exposure control, adjustment of the mA and/or kV according to patient size and/or use of iterative reconstruction technique. MIP reconstructions were generated. Stenoses are calculated by NASCET criteria. FINDINGS: The visualized aortic arch and origins of the great vessels unremarkable. The common carotid arteries are patent and symmetric bilaterally. No hemodynamically significant stenosis is observed at the common carotid bifurcations or origins of the internal carotid arteries bilaterally. Vertebral arteries are unremarkable without evidence of pseudoaneurysm, hemodynamically significant s tenosis, or dissection. Intracranially the cavernous segments of the internal carotid arteries are patent and symmetric bilat erally. Vertebral basilar system within normal limits for age. No aneurysm identified within the [place]. Anterior, middle, and posterior cerebral circulat ions are patent and symmetric bilaterally. Dural sinuses are well opacified and without filling defect. IMPRESSION: Unremarkable CT angiogram of the neck for age without dissection or hemodynamically significant steno sis. Unremarkable CTA of the brain without evidence of hemodynamically significant stenosis, aneurysm or A VM. CAROTID STENOSIS REFERENCE USING NASCET CRITERIA: % ICA stenosis = (1 - narrowest ICA diameter/diameter of distal cervical ICA) x 100. Mild - <50% stenosis. Moderate - 50-69% stenosis. Severe - 70-94% stenosis. Near occlusion - 95-99% stenosis. Occluded - 100% stenosis. Electronically signed by: Jean Sidhu MD 08/12/2024 11:59 PM SLAG WORKER RP Due to temporary technical issues with the [employer] reporting system, reports are being angelo d by the in-house radiologist without review as a courtesy to ensure prompt reporting the interpreting radiologist is fully responsible for the content of the report. Transcribed Date/Time: 08/13/2024 12:39 AM
[2024-08-13 00:48] LABS: Urine Bacteria None Seen /HPF (<20); Urine Bilirubin NEGATIVE (Negative); Urine Blood Negative (Negative); Urine Clarity Clear (Clear); Urine Color Light-Yellow (Yellow); Urine Culture Reflex Order NOT NEEDED; Urine Glucose NEGATIVE (Negative); Urine Ketones NEGATIVE (Negative); Urine Micro Reflex YN NO BILL MICROSCOPIC; Urine Nitrite NEGATIVE (Negative); Urine Protein NEGATIVE (Negative); Urine RBC None Seen /HPF (None Seen); Urine Urobilinogen Normal (Normal); Urine WBC <5 /HPF (<5); Urine pH 7.5 (5.0-7.0)
[2024-08-13 00:49] LABS: Specific Gravity > 1.030 (1.005-1.030)
--- NOTE | 2024-08-13 02:38 | RAD REPORT ---
CLINICAL HISTORY: Vomiting. COMPARISON: CT Abdomen Pelvis 12/15/2023 (Report only) and CT Head Cervical Spine Chest Abdomen Pelvi s 01/30/2023. TECHNIQUE: CT CHEST ABDOMEN PELVIS WITH IV CONTRAST on 08/12/2024 10:00 PM ELECTRON BEAM WELDING MACHINE OPERATOR. MIPS reconstructions w ere generated. This exam was performed according to our departmental dose-optimization program, which includes autom ated exposure control, adjustment of the mA and/or kV according to patient size and/or use of iterative reconstruction technique. FINDINGS: Vascular: Thoracic aorta is normal in course and caliber without aneurysm or dissection. Pulmonary ar teries are adequately opacified without acute or chronic filling defects. Abdominal aorta is normal in course and caliber without aneurysm. Pelvic arteries are patent without aneurysm or occlusion. Chest: The heart is normal in size. There is no pericardial effusion. Intrathoracic lymph nodes are n ot enlarged. There is no pleural effusion, pleural thickening or pneumothorax. Central airways are patent. Lungs a re clear with no consolidation, mass or interstitial lung disease. Abdomen: Liver is highly heterogeneous and somewhat nodular in contour. There is no biliary dilatatio n. Cholecystectomy was performed. The pancreas and spleen are normal in appearance. The adrenal glands and kidneys are unremarkable. There is no free air. There is no retroperitoneal adenopathy. Pelvis: There is no bowel obstruction. Urinary bladder is unremarkable. There is no free fluid. Uteru s is normal in size. Appendix is normal. Skeleton: There are no acute osseous findings. No suspicious bony lesions. IMPRESSION: No definite acute process. Heterogeneous appearance of the liver. Recommend nonemergent MRI. Electronically signed by: Jean Sidhu MD 08/13/2024 02:31 AM ELECTRON BEAM WELDING MACHINE OPERATOR Due to temporary technical issues with the PACS/[employer] reporting system, reports are being angelo d by the in-house radiologist without review as a courtesy to ensure prompt reporting the interpreting radiologist is fully responsible for the content of the report. Transcribed Date/Time: 08/13/2024 2:38 AM
--- NOTE | 2024-08-13 02:39 | RAD REPORT ---
CLINICAL HISTORY: RODRIGUEZ, nausea, vomiting, L sided paresthesias. COMPARISON: CT Head 12/14/2024 (Report only) and CT Head Cervical Spine Chest Abdomen Pelvis 01/31/20. TECHNIQUE: CT HEAD WITHOUT IV CONTRAST on 08/12/2024 10:00 PM CLINICAL LAB CLERK This exam was performed according to our departmental dose-optimization program, which includes autom ated exposure control, adjustment of the mA and/or kV according to patient size and/or use of iterative reconstruction technique. FINDINGS: There is no acute hemorrhage, mass effect or midline shift. Collier-white differentiation is preserved. There is no hydrocephalus. There is no significant volume loss for age. The calvarium is intact. Orbits and globes are unremarkable. The paranasal sinuses are clear. Mastoid air cells are clear. IMPRESSION: No acute intracranial findings. Electronically signed by: Jena Sidhu MD 08/13/2024 02:26 AM CLINICAL LAB CLERK Due to temporary technical issues with the PACS/[employer] reporting system, reports are being angelo d by the in-house radiologist without review as a courtesy to ensure prompt reporting the interpreting radiologist is fully responsible for the content of the report. Transcribed Date/Time: 08/13/2024 2:39 AM
--- NOTE | 2024-08-13 02:44 | EDPHYS ---
Physician Documentation [facility] Name: Sylvia Cruz Age: 39 yrs Sex: Female : 1985 Arrival Date: 08/12/2024 Time: 21:54 Bed 4 Private MD: ED Physician Otto Olvera HPI: 08/12 22:05 This 39 yrs old Female presents to ER via Unassigned with complaints of ec2 Numbness Of Face. 22:05 Patient arrives today for evaluation of left-sided paresthesia's along with chest pain ec2 and left headache. Reports no falls injuries or trauma. Symptoms started approximately 1999. External workup shows that she has a history of cirrhosis, history of hemoperitoneum. Patient reports she has not taken medications for her symptoms. Denies any blood thinners.. HOME AID: 22:14 LMP N/A - Depo-provera, Not vc1 Historical: - Allergies: 22:10 No Known Allergies; vc1 - Home Meds: 22:10 aripiprazole 5 mg Oral tablet daily [Active]; duloxetine 20 mg Oral capsule daily vc1 [Active]; Depo-Provera IM [Active]; Clonidine Oral [Active]; hydroxyzine HCl 50 mg Oral tablet [Active]; - PMHx: 22:10 Alcoholism; Bipolar disorder; Hypertension; Depression; cirrhosis of liver; vc1 - PSHx: 22:10 Cholecystectomy; Sternum Reconstruction; vc1 - Immunization history:: Adult Immunizations unknown. - Infectious Disease History:: Denies. - Social history:: Smoking status: Patient reports the use of cigarette tobacco products, 1 cigs/day. ROS: 22:06 Constitutional: as per hpi ec2 Exam: 22:06 Constitutional: GEN: NAD Head: atraumatic Eyes: EOMI Ears: External ears are ec2 normal. CV: regular rate LUNGS: no respiratory distress ABD: non-distended SKIN: no evidence of rashes MSK: no evidence of trauma. Neuro: Cranial nerves II through XII intact, strength intact all 4 extremities, no pronator drift, normal [id number], sensation intact in the bilateral face, bilateral upper and lower extremities. No appreciable deficits noted. 08/13 02:44 Radiologist reports: negative ec2 Vital Signs: 08/12 21:54 BP 127 / 89; Pulse 81; Resp 24; Temp 98.6; Pulse Ox 99% on R/A; vc1 22:20 Weight 61.23 kg; Height 5 ft. 2 in. ; Pain 5/10; vc1 23:00 BP 128 / 86; Pulse 101; Resp 20; Pulse Ox 98% ; vc1 23:59 BP 124 / 82; Pulse 89; Resp 29 S; Pulse Ox 99% on R/A; br2 08/13 02:01 BP 119 / 79; Pulse 94; Resp 18; Pulse Ox 99% on R/A; br2 03:02 BP 117 / 63; Pulse 96; Resp 18; Temp 98.3; Pulse Ox 100% ; Pain 0/10; br2 02 22:20 Body Mass Index 24.69 (61.23 kg, 157.48 cm) vc1 22:20 Pain Scale: Adult vc1 03:02 Pain Scale: Adult br2 NIH Stroke Scale Scores: 08/12 22:06 NIHSS Score: 0 ec2 22:18 NIHSS Score: 0 vc1 MDM: 21:58 Medical Screening Exam initiated ec2 22:04 ED course: EKG independently read by me, shows normal sinus rhythm, rate of 86, no ec2 acute ST segment elevations, intervals are nonactionable.. 22:06 TNKase (Tenecteplase) Screening: Not Applicable. Data reviewed: vital signs, nurses ec2 notes. ED course: Patient arrives today for left-sided paresthesia as well as headache and chest pain. Examination yields well-appearing nontoxic dividual's otherwise in no acute distress with a reassuring examination with no focal neurologic deficit appreciated. Will obtain lab work, dissection evaluation. Differential diagnoses considered include processes such as intracranial mass, brain bleed, dissection, electrolyte disturbances. Will treat the patient's headache as well. Additionally considered migraine given the patient complains of headache with associated symptoms. Ultimately patient with an NIH of 0 and not appropriate for TNK. 23:51 ED course: Metabolic profile is reassuring. CBC reassuring, troponin within normal ec2 ranges. Chest x-ray shows no acute intrathoracic process.. 08/13 01:52 ED course: There is a delay in CT results, discussed with geospatial technologist, issue of ec2 transmission and attempting to reconcile this.. 02:42 ED course: On reassessment patient is well-appearing no acute distress, reports ec2 resolution of her symptoms. Will discharge home. Return precautions given. Presentation consistent w/ migraine.. 08/12 22:00 Order name: Basic Metabolic Panel; Complete Time: 23:50 ec2 08/12 22:00 Order name: CBC with Diff; Complete Time: 23:50 ec2 08/12 22:00 Order name: Troponin HS; Complete Time: 23:50 ec2 08/12 22:11 Order name: Glucose, Ancillary Testing; Complete Time: 23:50 EDMS 08/12 23:50 Order name: Test, Urine; Complete Time: 00:49 ec2 08/12 23:50 Order name: UAM; Complete Time: 00:49 ec2 08/12 22:00 Order name: CT Head Angio ec2 08/12 22:00 Order name: CT Neck Angio ec2 08/12 22:00 Order name: CT Head Brain wo Cont ec2 08/12 22:00 Order name: XRAY Chest (1 view); Complete Time: 23:50 ec2 08/12 22:49 Order name: Chest Abdomen Pelvis W Cont EDMS 08/12 22:00 Order name: EKG; Complete Time: 22:01 ec2 08/12 22:00 Order name: Cardiac monitoring; Complete Time: 22:19 ec2 08/12 22:00 Order name: EKG - Nurse/Tech; Complete Time: 22:19 ec2 08/12 22:00 Order name: IV Saline Lock; Complete Time: 22:19 ec2 08/12 22:00 Order name: Labs collected and sent; Complete Time: 22:19 ec2 08/12 22:00 Order name: O2 Per Protocol; Complete Time: 22:19 ec2 08/12 22:00 Order name: O2 Sat Monitoring; Complete Time: 22:19 ec2 Administered Medications: 08/12 22:47 Drug: metoCLOPramide IVP 10 mg IVP once; over 1 to 2 minutes Route: IVP; Site: left br2 antecubital; 08/13 03:04 Follow up: Response: No adverse reaction 2 08/12 22:55 Drug: diphenhydrAMINE IVP 25 mg IVP once Route: IVP; Site: right antecubital; 2 08/13 03:04 Follow up: Response: No adverse reaction 08/12 22:55 Drug: Magnesium Sulfate IVPB 2 grams IVPB once over 30 mins Route: IVPB; Infused Over: br2 30 mins; Site: right antecubital; 08/13 03:05 Follow up: IV Status: Completed infusion; IV Intake: 100ml br2 08/12 22:56 Drug: NS 0.9% IV 500 ml 500 ml IV at 1 bolus once; to be given as a bolus over 30 br2 minutes Volume: 500 ml; Route: IV; Rate: 1 bolus; Site: right antecubital; 08/13 03:04 Follow up: Response: No adverse reaction; IV Intake: 500ml br2 Disposition Summary: 08/13/24 02:43 Discharge Ordered Notes: Location: Home ec2 Condition: Stable ec2 Diagnosis - Headache ec2 Followup: ec2 - With: Private Physician - When: - Reason: Re-evaluation by your physician Discharge Instructions: - Discharge Summary Sheet ec2 - Migraine Headache ec2 Forms: - Medication Reconciliation Form ec2 - Antibiotic Education ec2 - Prescription Opioid Use ec2 - Patient Portal Instructions ec2 - Leadership Thank You Letter ec2 Prescriptions: - Compazine 10 mg Oral Tablet - take 1 tablet ORAL route every 8 hours As needed; 20 tablet; Refills: 0, ec2 Product Selection Permitted NIH Stroke Scale - NIH Stroke Score Date: 08/12/2024 Time: 22:06 Total Score = 0 10. Dysarthria (speech clarity - read or repeat words) - 0(Normal) 11. Extinction and Inattention (visual/tactile/auditory/spatial/personal) - 0(No abnormality) 1a. Level of Consciousness (LOC) - 0(Alert) 1b. Level of Consciousness (LOC) (Month \T\ Age) - 0(Both) 1c. LOC Commands (Open \T\ Closes Eyes/Circuit Court Magistrate) - 0(Both) 2. Best Gaze (Lateral Gaze Paresis) - 0(Normal) 3. Visual Field Loss - 0(No visual loss) 4. Facial Palsy - 0(Normal) 5a. Left Arm: Motor (10-second hold) - 0(No drift) 5b. Right Arm: Motor (10-second hold) - 0(No drift) 6a. Left Leg: Motor (5-second hold - always test supine) - 0(No drift) 6b. Right Leg: Motor (5-second hold - always test supine) - 0(No drift) 7. Limb Ataxia (finger/nose \T\ heel/apple - test with eyes open) - 0(Absent) 8. Sensory Loss (pinprick arms/legs/face) - 0(Normal) 9. Best Language: Aphasia (description/naming/reading) - 0(No aphasia) Initials: ec2 NIH Stroke Scale - NIH Stroke Score Date: 08/12/2024 Time: 22:18 Total Score = 0 10. Dysarthria (speech clarity - read or repeat words) - 0(Normal) 11. Extinction and Inattention (visual/tactile/auditory/spatial/personal) - 0(No abnormality) 1a. Level of Consciousness (LOC) - 0(Alert) 1b. Level of Consciousness (LOC) (Month \T\ Age) - 0(Both) 1c. LOC Commands (Open \T\ Closes Eyes/Circuit Court Magistrate) - 0(Both) 2. Best Gaze (Lateral Gaze Paresis) - 0(Normal) 3. Visual Field Loss - 0(No visual loss) 4. Facial Palsy - 0(Normal) 5a. Left Arm: Motor (10-second hold) - 0(No drift) 5b. Right Arm: Motor (10-second hold) - 0(No drift) 6a. Left Leg: Motor (5-second hold - always test supine) - 0(No drift) 6b. Right Leg: Motor (5-second hold - always test supine) - 0(No drift) 7. Limb Ataxia (finger/nose \T\ heel/apple - test with eyes open) - 0(Absent) 8. Sensory Loss (pinprick arms/legs/face) - 0(Normal) 9. Best Language: Aphasia (description/naming/reading) - 0(No aphasia) Initials: vc1 Signatures: Dispatcher [employer] EDMS Opal Ellison RN RN vc1 Otto Olvera MD MD ec2 Jacqueline Valladares RN RN br2 Corrections: (The following items were deleted from the chart) 08/12 22:06 22:05 Patient arrives today for evaluation of left-sided paresthesia's along ec2 with chest pain and left headache. Reports no falls injuries or trauma. Symptoms started approximately 1999.. ec2 22:49 22:08 Angio Aorta For Dissection ordered. EDMS EDMS 23:51 23:51 Test, Urine+UC.LAB.BRZ ordered. EDMS EDMS 23:51 23:51 Urinalysis W/Microscopic+U.LAB.BRZ ordered. EDMS EDMS 08/13 00:27 02 22:01 TEST, SERUM+SC.LAB.BRZ ordered. EDMS EDMS
--- NOTE | 2024-08-13 02:44 | ER ---
Nurse's Notes [facility] Name: Sylvia Cruz Age: 39 yrs Sex: Female : 1985 Arrival Date: 08/12/2024 Time: 21:54 Bed 4 Private MD: Diagnosis: Headache Presentation: 08/12 21:54 Chief complaint: Chief complaint: EMS states: sitting down for dinner and started vc1 having numbness, tingling, and loss of sensation to the left side of face. Denies photophobia but seeing white specs. 21:54 Coronavirus screen: Client denies travel out of the [place] in the last 14 days. At this vc1 time, the client does not indicate any symptoms associated with coronavirus-19. Ebola Screen: Patient negative for fever greater than or equal to 101.5 degrees Fahrenheit, and additional compatible Ebola Virus Disease symptoms Patient denies exposure to infectious person. Patient denies travel to an Ebola-affected area in the 21 days before illness onset. No symptoms or risks identified at this time. Initial Sepsis Screen: Does the patient meet any 2 criteria? No. Patient's initial sepsis screen is negative. Does the patient have a suspected source of infection? No. Patient's initial sepsis screen is negative. Risk Assessment: Do you want to hurt yourself or someone else? Patient reports no desire to harm self or others. Onset of symptoms was August 12, 2024 at 20:30. Care prior to arrival: None. Activity prior to arrival: None. Mechanism of Injury: No Mechanism of Injury. Transition of care: patient was not received from another setting of care. 21:54 Method Of Arrival: EMS: [facility] vc1 21:54 Acuity: BONITA 3 vc1 Triage Assessment: 22:15 General: Appears in no apparent distress. uncomfortable, slender, Behavior is calm, vc1 cooperative. Pain: Complains of pain in anterior aspect of left upper chest Pain does not radiate. Pain currently is 5 out of 10 on a pain scale. Quality of pain is described as pressure, Pain began suddenly, 2 hours ago. EENT: No deficits noted. No signs and/or symptoms were reported regarding the EENT system. Neuro: Level of Consciousness is awake, alert, obeys commands, Oriented to person, place, time, situation, Appropriate for age. Cardiovascular: Reports chest pain, nausea, Denies palpitations, shortness of breath, Capillary refill < 3 seconds Patient's skin is warm and dry. Rhythm is sinus rhythm. Cardiovascular: Heart tones S1 S2 present. Respiratory: Airway is patent Respiratory effort is even, unlabored, Respiratory pattern is regular, symmetrical, Breath sounds are clear bilaterally. GI: No deficits noted. No signs and/or symptoms were reported involving the gastrointestinal system. : No deficits noted. No signs and/or symptoms were reported regarding the genitourinary system. Derm: Skin is intact, is healthy with good turgor, Skin is dry, Skin is normal, Skin temperature is warm. Musculoskeletal: Circulation, motion, and sensation intact. Range of motion: intact in all extremities. 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 - Infectious Disease History:: Denies. - Social history:: Smoking status: Patient reports the use of cigarette tobacco products, 1 cigs/day. Screenin:14 [facility] ED Fall Risk Assessment (Adult) History of falling in the last 3 months, vc1 including since admission No falls in past 3 months (0 pts) Confusion or Disorientation No (0 pts) Intoxicated or Sedated No (0 pts) Impaired Gait No (0 pts) Mobility Assist Device Used No (0 pt) Altered Elimination No (0 pt) Score/Fall Risk Level 0 - 2 = Low Risk Oriented to surroundings, Maintained a safe environment, Educated pt \T\ family on fall prevention, incl call for assistance when getting out of bed. Abuse screen: Denies threats or abuse. Nutritional screening: No deficits noted. Tuberculosis screening: No symptoms or risk factors identified. Assessment: 22:18 General: See triage assessment. vc1 22:59 Reassessment: Patient appears in no apparent distress at this time. No changes from vc1 previously documented assessment. Patient and/or family updated on plan of care and expected duration. Pain level reassessed. Patient is alert, oriented x 3, equal unlabored respirations, skin warm/dry/pink. 23:55 Reassessment: Patient and/or family updated on plan of care and expected duration. Pain br2 level reassessed. Patient is alert, oriented x 3, equal unlabored respirations, skin warm/dry/pink. Patient states feeling better. 08/13 03:02 Reassessment: Patient and/or family updated on plan of care and expected duration. Pain br2 level reassessed. Patient is alert, oriented x 3, equal unlabored respirations, skin warm/dry/pink. Patient states feeling better. Patient states symptoms have improved. Pain: Denies pain. Vital Signs: 08/12 21:54 BP 127 / 89; Pulse 81; Resp 24; Temp 98.6; Pulse Ox 99% on R/A; vc1 22:20 Weight 61.23 kg; Height 5 ft. 2 in. ; Pain 5/10; vc1 23:00 BP 128 / 86; Pulse 101; Resp 20; Pulse Ox 98% ; vc1 23:59 BP 124 / 82; Pulse 89; Resp 29 S; Pulse Ox 99% on R/A; br2 08/13 02:01 BP 119 / 79; Pulse 94; Resp 18; Pulse Ox 99% on R/A; br2 03:02 BP 117 / 63; Pulse 96; Resp 18; Temp 98.3; Pulse Ox 100% ; Pain 0/10; br2 08/12 22:20 Body Mass Index 24.69 (61.23 kg, 157.48 cm) vc1 22:20 Pain Scale: Adult vc1 03:02 Pain Scale: Adult br2 NIH Stroke Scale Scores: 08/12 22:06 NIHSS Score: 0 ec2 22:18 NIHSS Score: 0 vc1 ED Course: 21:55 No provider procedures requiring assistance completed. Inserted saline lock: 20 gauge vc1 in right antecubital area, using aseptic technique. Blood collected. Flushed with 10 mL NS. 21:57 Patient arrived in ED. ec2 21:57 Otto Olvera MD is Attending Physician. ec2 22:00 Opal Ellison, SARAHI is Primary Nurse. vc1 22:08 Triage completed. vc1 22:13 Arm band placed on right wrist. vc1 22:15 Patient has correct armband on for positive identification. Placed in gown. Bed in low vc1 position. Provided Education on: CT. quality assurance monitor body on. Pulse ox on. NIBP on. 22:23 XRAY Chest (1 view) In Process Unspecified. EDMS 22:58 CT Head Angio In Process Unspecified. EDMS 22:58 CT Neck Angio In Process Unspecified. EDMS 22:58 CT Head Brain wo Cont In Process Unspecified. EDMS 22:58 Chest Abdomen Pelvis W Cont In Process Unspecified. EDMS 02/ 03:03 IV discontinued, intact, bleeding controlled, No redness/swelling at site. Pressure br2 dressing applied. Administered Medications: 08/12 22:47 Drug: metoCLOPramide IVP 10 mg IVP once; over 1 to 2 minutes Route: IVP; Site: left br2 antecubital; 08/13 03:04 Follow up: Response: No adverse reaction br2 08/12 22:55 Drug: diphenhydrAMINE IVP 25 mg IVP once Route: IVP; Site: right antecubital; br2 08/13 03:04 Follow up: Response: No adverse reaction br2 08/12 22:55 Drug: Magnesium Sulfate IVPB 2 grams IVPB once over 30 mins Route: IVPB; Infused Over: br2 30 mins; Site: right antecubital; 08/13 03:05 Follow up: IV Status: Completed infusion; IV Intake: 100ml br2 08/12 22:56 Drug: NS 0.9% IV 500 ml 500 ml IV at 1 bolus once; to be given as a bolus over 30 br2 minutes Volume: 500 ml; Route: IV; Rate: 1 bolus; Site: right antecubital; 08/13 03:04 Follow up: Response: No adverse reaction; IV Intake: 500ml br2 Medication: 08/12 22:14 VIS not applicable for this client. vc1 Intake: 08/13 03:04 IV: 500ml; Total: 500ml. br2 03:05 IV: 100ml; Total: 600ml. br2 Outcome: 02:43 Discharge ordered by . ec2 03:03 Discharged to home ambulatory, br2 03:03 Condition: good 03:03 Discharge instructions given to patient, Instructed on discharge instructions, follow up and referral plans. Demonstrated understanding of instructions, follow-up care, medications, Prescriptions given X 1, 03:05 Patient left the ED. br2 NIH Stroke Scale - NIH Stroke Score Date: 08/12/2024 Time: 22:06 Total Score = 0 10. Dysarthria (speech clarity - read or repeat words) - 0(Normal) 11. Extinction and Inattention (visual/tactile/auditory/spatial/personal) - 0(No abnormality) 1a. Level of Consciousness (LOC) - 0(Alert) 1b. Level of Consciousness (LOC) (Month \T\ Age) - 0(Both) 1c. LOC Commands (Open \T\ Closes Eyes/Air Intelligence Officer) - 0(Both) 2. Best Gaze (Lateral Gaze Paresis) - 0(Normal) 3. Visual Field Loss - 0(No visual loss) 4. Facial Palsy - 0(Normal) 5a. Left Arm: Motor (10-second hold) - 0(No drift) 5b. Right Arm: Motor (10-second hold) - 0(No drift) 6a. Left Leg: Motor (5-second hold - always test supine) - 0(No drift) 6b. Right Leg: Motor (5-second hold - always test supine) - 0(No drift) 7. Limb Ataxia (finger/nose \T\ heel/apple - test with eyes open) - 0(Absent) 8. Sensory Loss (pinprick arms/legs/face) - 0(Normal) 9. Best Language: Aphasia (description/naming/reading) - 0(No aphasia) Initials: ec2 NIH Stroke Scale - NIH Stroke Score Date: 08/12/2024 Time: 22:18 Total Score = 0 10. Dysarthria (speech clarity - read or repeat words) - 0(Normal) 11. Extinction and Inattention (visual/tactile/auditory/spatial/personal) - 0(No abnormality) 1a. Level of Consciousness (LOC) - 0(Alert) 1b. Level of Consciousness (LOC) (Month \T\ Age) - 0(Both) 1c. LOC Commands (Open \T\ Closes Eyes/Air Intelligence Officer) - 0(Both) 2. Best Gaze (Lateral Gaze Paresis) - 0(Normal) 3. Visual Field Loss - 0(No visual loss) 4. Facial Palsy - 0(Normal) 5a. Left Arm: Motor (10-second hold) - 0(No drift) 5b. Right Arm: Motor (10-second hold) - 0(No drift) 6a. Left Leg: Motor (5-second hold - always test supine) - 0(No drift) 6b. Right Leg: Motor (5-second hold - always test supine) - 0(No drift) 7. Limb Ataxia (finger/nose \T\ heel/apple - test with eyes open) - 0(Absent) 8. Sensory Loss (pinprick arms/legs/face) - 0(Normal) 9. Best Language: Aphasia (description/naming/reading) - 0(No aphasia) Initials: vc1 Signatures: Dispatcher [employer] EDOpal Barone RN RN vc1 Otto Olvera MD MD ec2 Jacqueline Valladares RN RN br2 Corrections: (The following items were deleted from the chart) 08/12 22:08 22:01 Chief complaint: vc1 vc1
[2024-08-13 11:20] VITALS: BP 117/63; TEMP 98.3; O2SAT 100
--- NOTE | 2024-08-13 11:44 | EKG ---
Test Date: 2024-08-12 Test Time: 21:54:31 Stock Controller: ONEAL MEASUREMENT RESULTS: Intervals: Rate: 86 MT: 126 QRSD: 76 QT: 414 QTc: 495 [place]: P: 71 MT: 126 QRS: 25 T: 44 INTERPRETIVE STATEMENTS: Normal sinus rhythm Prolonged QT Abnormal ECG Compared to ECG 12/15/2023 22:07:51 Prolonged QT interval now present Sinus tachycardia no longer present Electronically Signed On 08-13-24 11:43:38 [employer] AND [employer] VISITING TEACHER by Benny Zambrano
== END 2024-08-13 03:05 | disposition home or self-care (01) ==
LOC: ER 21:54
DX: R51.9 Headache, unspecified (principal); R07.9 Chest pain, unspecified; R20.2 Paresthesia of skin; I10 Essential (primary) hypertension; F10.20 Alcohol dependence, uncomplicated; F31.9 Bipolar disorder, unspecified; Z72.0 Tobacco use
CPT/HCPCS: 36415; 70450; 70496; 70498; 71045; 71260; 74177; 80048; 81001; 81025; 82947; 84484; 85025; 93005; J1200; J2765; J3475; J7040; Q9967

== ENCOUNTER 2024-09-23 21:16 | Emergency (ER) | payer MEDICARE ==
[2024-09-23] MEDS ORDERED: THIAMINE 200 MG/2 ML INJ ONE (22:04)
--- NOTE | 2024-09-24 00:18 | EDPHYS ---
Physician Documentation [facility] Name: Sylvia Cruz Age: 39 yrs Sex: Female : 1985 Arrival Date: 09/23/2024 Time: 21:16 Bed 13 Private MD: ED Physician Enrique Zhu HPI: 09/24 00:17 This 39 yrs old Female presents to ER via EMS with complaints of sp4 intoxication, syncope. 20:12 31-year-old female presents with complaint of alcohol intoxication. Patient also took 2 sp4 Ambien p.o. prior to arrival . Complains she is not able to sleep at home. Patient states she has been out of her Vistaril, out of her clonidine, and out of her Seroquel. Apparently takes Vistaril 25 mg p.o. as needed, clonidine 0.1 mg p.o. 3 times a day, and additionally Seroquel 100 mg p.o. before bedtime. States she has significant problems sleeping. Patient reports she has relapsed into alcohol abuse 6 months ago. Patient reports history of liver cirrhosis. Also patient states she does not want her blood checked today. She refused blood work on arrival . . 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 - Infectious Disease History:: Denies. - Social history:: Smoking status: Patient reports the use of cigarette tobacco products, denies chronic smoking, but will smoke occasionally, Patient uses alcohol, occasionally. - Family history:: not pertinent. ROS: 09/24 20:12 Constitutional: Negative for fever, chills, and weight loss, Positive for sp4 intoxication and positive for sincope All other systems are negative, Exam: 20:12 Constitutional: This is a well developed, well nourished patient who is awake, alert, sp4 and in no acute distress. Intoxicated female Head/Face: Normocephalic, atraumatic. Eyes: Pupils equal round and reactive to light, extra-ocular motions intact. Lids and lashes normal. Conjunctiva and sclera are not injected. Cornea within normal limits. Periorbital areas with no swelling, redness, or edema. ENT: Nares patent. No nasal discharge, no septal abnormalities noted. Tympanic membranes are normal and external auditory canals are clear. Oropharynx with no redness, swelling, or masses, exudates, or evidence of obstruction, uvula midline. Mucous membranes moist. Neck: Trachea midline, no thyromegaly or masses palpated, and no cervical lymphadenopathy. Supple, full range of motion without nuchal rigidity, or vertebral point tenderness. Chest/axilla: Normal chest wall appearance and motion. Nontender with no deformity. No lesions are appreciated. Cardiovascular: Regular rate and rhythm with a normal S1 and S2. No gallops, murmurs, or rubs. Normal PMI, no JVD. No pulse deficits. Respiratory: Lungs have equal breath sounds bilaterally, clear to auscultation and percussion. No rales, rhonchi or wheezes noted. No increased work of breathing, no retractions or nasal flaring. Abdomen/GI: Soft, with normal bowel sounds. No distension or tympany. No guarding or rebound. No evidence of tenderness throughout. Back: No spinal tenderness. No costovertebral tenderness. Skin: Warm, dry with normal turgor. Normal color with no rashes, no lesions, and no evidence of cellulitis. MS/ Extremity: Pulses equal, no cyanosis. Neurovascular intact. Full, normal range of motion. Neuro: Awake and alert, GCS 15, oriented to person, place, time, and situation. Cranial nerves II-XII grossly intact. Motor strength 5/5 in all extremities. Sensory grossly intact. Psych: Awake, alert, with orientation to person, place and time. Behavior, mood, and affect are within normal limits Vital Signs: 09/23 21:45 BP 115 / 71; Pulse 77; Resp 17; Temp 98; Pulse Ox 100% on R/A; Weight 61.23 kg; Height rg5 5 ft. 2 in. ; Pain 5/10; 22:30 BP 98 / 60; Pulse 99; Pulse Ox 95% on R/A; Pain 0/10; rg5 23:30 BP 98 / 62; Pulse 100; Resp 17; Pulse Ox 94% on R/A; Pain 0/10; [facility] 09/24 00:30 BP 121 / 77; Pulse 99; Resp 18; Temp 98; Pulse Ox 99% on R/A; Pain 0/10; 5 09/23 21:45 Body Mass Index 24.69 (61.23 kg, 157.48 cm) [facility] 09/23 21:45 Pain Scale: Adult rg5 22:30 Pain Scale: Adult rg5 23:30 Pain Scale: Adult 5 09/24 00:30 Pain Scale: Adult rg5 [place] Coma Score: 20:12 Eye Response: spontaneous(4). Motor Response: obeys commands(6). Verbal Response: sp4 oriented(5). Total: 15. MDM: 09/23 21:42 Medical Screening Exam initiated kb 09/24 20:12 Differential Diagnosis altered mental status, sepsis, flu, Intoxication . Data sp4 reviewed: vital signs, nurses notes, EMS record, old medical records. Consideration of Admission/Observation Escalation of care including admission/observation considered. ED course: Has refused laboratory evaluation. Patient was given IV fluids and thiamine. Patient was advised to discontinue alcohol abuse. Patient was advised to discontinue use of nonprescribed Ambien . Did prescribe patient's regular medications for 1 month including Vistaril, Seroquel, and clonidine. Was advised to follow-up with her primary care physician for additional refills. . Administered Medications: 09/23 21:57 Drug: NS 0.9% IV 1000 ml IV at 1000 ml once; to be given as a bolus over 60 minutes rg5 Route: IV; Rate: 1000 ml; Site: right antecubital; 23:42 Follow up: IV Status: Completed infusion; IV Intake: 1000ml rg5 22:00 Drug: Thiamine IV 100 mg IV at bolus once Route: IV; Rate: bolus; Site: right rg5 antecubital; 09/24 00:37 Follow up: IV Status: Completed infusion; IV Intake: 50ml rg5 Disposition: 20:12 Chart complete. sp4 Disposition Summary: 09/24/24 00:17 Discharge Ordered Notes: Location: Home sp4 Problem: new sp4 Symptoms: have improved sp4 Condition: Stable sp4 Diagnosis - Alcohol use, unspecified with intoxication sp4 - Syncopal episode secondary to intoxication sp4 Followup: sp4 - With: Private Physician - When: 7 - 10 days - Reason: Recheck today's complaints Discharge Instructions: - Discharge Summary Sheet sp4 - Alcohol Intoxication sp4 Forms: - Patient Portal Instructions sp4 Prescriptions: - Seroquel 100 mg Oral tablet - take 1 tablet ORAL route every day at bedtime PRN insomnia; 20 tablet; Refills: sp4 0, Product Selection Permitted - clonidine HCl 0.1 mg Oral tablet - take 1 tablet ORAL route 3 times per day PRN withdrawals; 30 tablet; Refills: sp4 0, Product Selection Permitted - Hydroxyzine HCl 25 mg Oral Tablet - take 1 tablet ORAL route every 6 hours As needed; 30 tablet; Refills: 0, sp4 Product Selection Permitted Signatures: Rika Hinds, Enrique Aleman MD MD sp4 Gilson Walton RN RN rg5
--- NOTE | 2024-09-24 00:18 | ER ---
Nurse's Notes [facility] Name: Sylvia Cruz Age: 39 yrs Sex: Female : 1985 Arrival Date: 09/23/2024 Time: 21:16 Bed 13 Private MD: Diagnosis: Alcohol use, unspecified with intoxication;Syncopal episode secondary to intoxication Presentation: 09/23 21:40 Chief complaint: EMS states: patient calls because she feels dizzy and low back pain rg5 after taking 2 Ambien tablet and a bottle of red wine. 21:40 Coronavirus screen: Client denies travel out of the [place] in the last 14 days. Ebola rg5 Screen: Patient negative for fever greater than or equal to 101.5 degrees Fahrenheit, and additional compatible Ebola Virus Disease symptoms Patient denies exposure to infectious person. Patient denies travel to an Ebola-affected area in the 21 days before illness onset. Initial Sepsis Screen: Does the patient meet any 2 criteria? No. Patient's initial sepsis screen is negative. Does the patient have a suspected source of infection? No. Patient's initial sepsis screen is negative. Risk Assessment: Do you want to hurt yourself or someone else? Patient reports no desire to harm self or others. Onset of symptoms was September 23, 2024. Care prior to arrival: Medication(s) given: Normal saline infusion, 1000 mL, zofran 4 mg, toradol 15 mg IV IV initiated. 20 GA, in the right antecubital area. Activity prior to arrival: loss of consciousness. 21:40 Method Of Arrival: EMS: [facility] rg5 21:40 Acuity: BONITA 3 rg5 Triage Assessment: 21:45 General: Appears in no apparent distress. comfortable, Behavior is calm, cooperative, rg5 appropriate for age. Pain: Complains of pain in lumbar area, left low back and right low back Quality of pain is described as aching. EENT: No deficits noted. Neuro: Level of Consciousness is awake, alert, obeys commands, Oriented to person, place, time, situation. Cardiovascular: Denies chest pain. Respiratory: Airway is patent Trachea midline Respiratory effort is even, unlabored, Respiratory pattern is regular, symmetrical. GI: Abdomen is round non-distended. : No signs and/or symptoms were reported regarding the genitourinary system. Derm: Skin is intact, Skin is dry, Skin is normal. Musculoskeletal: Circulation, motion, and sensation intact. Range of motion: intact in all extremities. 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 - Infectious Disease History:: Denies. - Social history:: Smoking status: Patient reports the use of cigarette tobacco products, denies chronic smoking, but will smoke occasionally, Patient uses alcohol, occasionally. - Family history:: not pertinent. Screenin:45 [place] ED Fall Risk Assessment (Adult) History of falling in the last 3 months, rg5 including since admission No falls in past 3 months (0 pts) Confusion or Disorientation Yes (5 pts) Intoxicated or Sedated Yes (3 pts) Impaired Gait No (0 pts) Mobility Assist Device Used Yes (1 pt) Altered Elimination Yes (1 pt) Score/Fall Risk Level 0 - 2 = Low Risk Oriented to surroundings, Maintained a safe environment, Educated pt \T\ family on fall prevention, incl call for assistance when getting out of bed, Provided non-skid footwear, Hourly rounding (assess needs \T\ fall precautionary measures) done. Abuse screen: Denies threats or abuse. Nutritional screening: No deficits noted. Tuberculosis screening: No symptoms or risk factors identified. Assessment: 22:00 Reassessment: No changes from previously documented assessment. Patient and/or family rg5 updated on plan of care and expected duration. Pain level reassessed. Patient is alert, oriented x 3, equal unlabored respirations, skin warm/dry/pink. 23:00 Reassessment: Patient and/or family updated on plan of care and expected duration. Pain rg5 level reassessed. Patient is alert, oriented x 3, equal unlabored respirations, skin warm/dry/pink. Patient states feeling better. 09/24 00:35 Reassessment: Patient is alert, oriented x 3, equal unlabored respirations, skin rg5 warm/dry/pink. Patient denies pain at this time. Patient states feeling better. Patient states symptoms have improved. Vital Signs: 09/23 21:45 BP 115 / 71; Pulse 77; Resp 17; Temp 98; Pulse Ox 100% on R/A; Weight 61.23 kg; Height rg5 5 ft. 2 in. ; Pain 5/10; 22:30 BP 98 / 60; Pulse 99; Pulse Ox 95% on R/A; Pain 0/10; rg5 23:30 BP 98 / 62; Pulse 100; Resp 17; Pulse Ox 94% on R/A; Pain 0/10; rg5 09/24 00:30 BP 121 / 77; Pulse 99; Resp 18; Temp 98; Pulse Ox 99% on R/A; Pain 0/10; rg5 09/23 21:45 Body Mass Index 24.69 (61.23 kg, 157.48 cm) rg5 09/23 21:45 Pain Scale: Adult rg5 22:30 Pain Scale: Adult rg5 23:30 Pain Scale: Adult rg5 09/24 00:30 Pain Scale: Adult rg5 [place] Coma Score: 20:12 Eye Response: spontaneous(4). Motor Response: obeys commands(6). Verbal Response: sp4 oriented(5). Total: 15. ED Course: 09/23 21:40 Patient arrived in ED. kmf 21:41 [facility] Hind[facility]-C [facility] kb 21:41 Enrique Zhu MD is Attending Physician. kb 21:44 Gilson Walton RN is Primary Nurse. rg5 21:45 Arm band placed on left wrist. rg5 21:45 Patient has correct armband on for positive identification. Bed in low position. Call rg5 light in reach. Side rails up X 1. Door closed. Noise minimized. Warm blanket given. 21:45 No provider procedures requiring assistance completed. Maintain EMS IV. Dressing rg5 intact. Good blood return noted. Site clean \T\ dry. Gauge \T\ site: 20g Right AC. Flushed with 10 mL NS. 21:48 Triage completed. rg5 09/24 00:25 Provided Education on: post er care. rg5 00:25 IV discontinued, bleeding controlled, No redness/swelling at site. Pressure dressing rg5 applied. Administered Medications: 03/25 21:57 Drug: NS 0.9% IV 1000 ml IV at 1000 ml once; to be given as a bolus over 60 minutes rg5 Route: IV; Rate: 1000 ml; Site: right antecubital; 23:42 Follow up: IV Status: Completed infusion; IV Intake: 1000ml rg5 22:00 Drug: Thiamine IV 100 mg IV at bolus once Route: IV; Rate: bolus; Site: right rg5 antecubital; 09/24 00:37 Follow up: IV Status: Completed infusion; IV Intake: 50ml rg5 Medication: 09/23 21:45 VIS not applicable for this client. rg5 Intake: 23:42 IV: 1000ml; Total: 1000ml. rg5 09/24 00:37 IV: 50ml; Total: 1050ml. rg5 Outcome: 00:17 Discharge ordered by . sp4 00:35 Discharged to home ambulatory, rg5 00:35 Condition: stable 00:35 Discharge instructions given to patient, Instructed on discharge instructions, follow up and referral plans. Demonstrated understanding of instructions, follow-up care, medications, Prescriptions given X 3, 00:37 Patient left the ED. rg5 Signatures: Rika Hinds, COLLARETTE SEPARATOR-C COLLARETTE SEPARATOR-Ckb Enrique Zhu MD MD sp4 Jie Ortega Rommel, RN RN rg5
[2024-09-24 00:42] VITALS: TEMP 98
[2024-09-24 00:49] VITALS: BP 121/77; O2SAT 99
== END 2024-09-24 00:37 | disposition home or self-care (01) ==
LOC: ER 21:16
DX: F10.929 Alcohol use, unspecified with intoxication, unspecified (principal); R55 Syncope and collapse; K74.60 Unspecified cirrhosis of liver; I10 Essential (primary) hypertension; F31.9 Bipolar disorder, unspecified; F17.210 Nicotine dependence, cigarettes, uncomplicated
CPT/HCPCS: 96365; 96366; 99284; J3411

== ENCOUNTER 2024-10-25 15:14 | Emergency (ER) | payer MEDICARE ==
[2024-10-25] MEDS ORDERED: NA CHLORIDE 0.9% 1,000 ML ONE (15:59)
[2024-10-25] MEDS ORDERED: LORazepam 2 MG/ML VIAL ONE (15:59)
[2024-10-25 16:22] LABS: Absolute Basophils 0.1 K/uL (0-0.5); Absolute Eosinophils 0.3 K/uL (0-0.5); Absolute Monocytes 0.4 K/uL (0.1-1.3); Absolute Neutrophil 3.4 K/uL (1.8-8.0); Basophils % 0.8 % (0-1.3); Eosinophils % 3.6 % (0-4.4); Hematocrit 36.6 % (36.0-45.0); Lymphocytes % 41.5 % (15.3-44.8); MCH 35.5 pg (27.0-35.0); MCHC 35.4 g/dL (32.0-36.0); MCV 100.1 fL (80-100); MPV 6.3 fL (7.6-11.3); Neutrophils % 48.1 % (41.7-73.7); Nucleated Red Blood Cells % 0.1 % (0-0); Platelets 112 thou/uL (152-406); RBC Red Blood Cell Count 3.66 M/uL (3.86-4.86); Red Cell Distribution Width 13.6 % (12.1-15.2)
[2024-10-25 16:41] LABS: PT Prothrombin Time 13.9 SECONDS (10-13.0); PTT, Activated Partial Thromb 43.8 SECONDS (27.2-37.4); Protime INR 1.23
[2024-10-25 16:44] LABS: Specific Gravity 1.008 (1.005-1.030)
[2024-10-25 16:47] LABS: ALT/SGPT 107 U/L (13-56); AST/SGOT 221 U/L (15-37); Albumin 3.6 g/dL (3.4-5.0); Albumin/Globulin Ratio 0.8 (1.1-1.8); Alkaline Phosphatase 128 U/L (45-117); Anion Gap 10.5 mEq/L (5.0-15.0); BUN Blood Urea Nitrogen 4 mg/dL (7-18); Bicarbonate 24 mEq/L (21-32); Bilirubin Direct 0.6 mg/dL (0-0.2); Bilirubin Indirect, Calculated 0.8 mg/dL (0.2-0.8); Bilirubin Total 1.4 mg/dL (0.2-1.0); Globulin 4.8 g/dL (2.3-3.5); Glomerular Filtration Rate 121 ml/min (=/>90); Glucose Level 101 mg/dL (74-106); Potassium 3.5 mEq/L (3.5-5.1); Protein, Total 8.4 g/dL (6.4-8.2); Sodium Level 140 mEq/L (136-145)
[2024-10-25 16:49] LABS: Specific Gravity 1.008 (1.005-1.030); Urine Bacteria <20 /HPF (<20); Urine Bilirubin NEGATIVE (Negative); Urine Blood Trace (Negative); Urine Clarity Extremely Turbid (Clear); Urine Color Light-Yellow (Yellow); Urine Culture Reflex Order NOT NEEDED; Urine Glucose NEGATIVE (Negative); Urine Ketones NEGATIVE (Negative); Urine Microscopic Reflex YN ORDER UMIC; Urine Mucus Slight /HPF (None Seen); Urine Nitrite NEGATIVE (Negative); Urine Protein NEGATIVE (Negative); Urine RBC <5 /HPF (None Seen); Urine Urobilinogen Normal (Normal); Urine WBC <5 /HPF (<5); Urine pH 6.5 (5.0-7.0)
[2024-10-25 16:55] LABS: Barbiturates NEGATIVE (NEGATIVE); Benzodiazepines NEGATIVE (NEGATIVE); Cocaine NEGATIVE (NEGATIVE); METHAMPHETAM NEGATIVE (NEGATIVE); Methadone NEGATIVE (NEGATIVE); Opiates NEGATIVE (NEGATIVE); Phencyclidine NEGATIVE (NEGATIVE); THC Cannibis NEGATIVE (NEGATIVE)
--- NOTE | 2024-10-25 16:55 | EDPHYS ---
Physician Documentation [facility] Name: Sylvia Cruz Age: 39 yrs Sex: Female : 1985 Arrival Date: 10/25/2024 Time: 15:14 Bed 18 Private MD: ED Physician Sanjeev Cummings HPI: 10/25 15:42 This 39 yrs old Female presents to ER via Law Enforcement with complaints of Suicidal kb Ideation. 15:42 Patient is a 39-year-old female who presents for suicidal ideations. States she was kb feeling like she was a failure to her mother so she was thinking about cutting her wrists. States she called crisis hotline and was tired of listening to the lady admitted preach to her so she hung up and they called the police. Patient states she has attempted suicide multiple times in the past, last episode was 4 months ago when she cut her wrist but she did not seek help at that time. States she bandaged herself up.. REWINDER: 15:18 LMP N/A - Depo-provera, Not me1 Historical: - Allergies: 15:19 No Known Allergies; me1 - Home Meds: 15:37 Depo-Provera IM [Active]; hydroxyzine HCl 50 mg oral tablet 1 tab 4 times per day for me1 anxiety [Active]; duloxetine 30 mg oral Capsule, Delayed Release Sprinkle 1 cap daily [Active]; clonidine HCl 0.1 mg oral tablet 1 tab every day at bedtime [Active]; Abilify 2 mg oral tablet 1 tab daily [Active]; Seroquel 100 mg Oral tablet 1 tab nightly [Active]; naltrexone 50 mg oral tablet 2 tabs daily [Active]; - PMHx: 15:19 Alcoholism; Bipolar disorder; cirrhosis of liver; Depression; Hypertension; me1 - PSHx: 15:37 Cholecystectomy; Sternum Reconstruction; me1 - Immunization history:: Adult Immunizations unknown. - Infectious Disease History:: Denies. - Social history:: Patient uses alcohol, on a daily basis. Smoking status: Patient reports the use of cigarette tobacco products, smokes one pack cigarettes per day. ROS: 15:42 Constitutional: As per HPI kb Exam: 15:42 Constitutional: This is a well developed, well nourished patient who is awake, alert, kb and in no acute distress. Head/Face: Normocephalic, atraumatic. ENT: Moist Mucous membranes Cardiovascular: Regular rate Respiratory: Respirations even and unlabored. No increased work of breathing. Talking in full sentences Skin: Warm, dry with normal turgor. Normal color. MS/ Extremity: Pulses equal, no cyanosis. Neurovascular intact. Full, normal range of motion. Neuro: Awake and alert, GCS 15, oriented to person, place, time, and situation. 15:42 Psych: Behavior/mood is suicidal, Affect is calm, Oriented to person, place, time, Patient having thoughts of suicide. Plan for suicide is Cut wrist 17:04 ECG was reviewed by the Attending Physician. Vital Signs: 15:18 BP 137 / 93; Pulse 110; Resp 17; Temp 98.1; Pulse Ox 97% ; Weight 54.43 kg; Height 5 me1 ft. 2 in. ; Pain 0/10; 17:32 BP 128 / 79; Pulse 113; Resp 14; Temp 98.1; Pulse Ox 100% ; me1 15:18 Body Mass Index 21.95 (54.43 kg, 157.48 cm) me1 15:18 Pain Scale: Adult me1 MDM: 15:19 Medical Screening Exam initiated kb 15:42 Data reviewed: vital signs, nurses notes. Historians other than the Patient: Law kb enforcement: [place] [employer]. 16:53 Differential diagnosis: suicidal ideations, depression. 16:53 Consideration of Admission/Observation Escalation of care including kb admission/observation considered. pt will be transferred to inpatient psychiatric facility. Management of patient was discussed with the following: Behavioral Health Provider: Dr Palacios accepts pt for transfer to [facility] without conference. Counseling: I had a detailed discussion with the patient and/or guardian regarding the historical points, exam findings, and any diagnostic results supporting the discharge/admit diagnosis, lab results, the need to transfer to another facility, [facility] does not immediately have the required specialist. 10/25 15:19 Order name: Acetaminophen; Complete Time: 16:52 kb 10/25 15:19 Order name: Basic Metabolic Panel; Complete Time: 16:52 kb 10/25 15:19 Order name: CBC with Diff; Complete Time: 16:26 kb 10/25 15:19 Order name: ETOH Level; Complete Time: 16:54 kb 10/25 15:19 Order name: Hepatic Function; Complete Time: 16:52 kb 10/25 15:19 Order name: PT-INR; Complete Time: 16:45 kb 10/25 15:19 Order name: Test, Urine; Complete Time: 16:54 kb 10/25 15:19 Order name: Ptt, Activated; Complete Time: 16:45 kb 10/25 15:19 Order name: Salicylate; Complete Time: 16:52 kb 10/25 15:19 Order name: Urinalysis w/ reflexes; Complete Time: 16:52 kb 10/25 15:19 Order name: Urine Drug Screen; Complete Time: 16:55 kb 10/25 15:19 Order name: EKG - Nurse/Tech; Complete Time: 17:34 kb 10/25 15:19 Order name: IV Saline Lock; Complete Time: 16:02 kb 10/25 15:19 Order name: Labs collected and sent; Complete Time: 16:02 kb 10/25 15:19 Order name: Suicide Precautions; Complete Time: 16:02 kb 10/25 15:19 Order name: Suicide Screening ([place]); Complete Time: 16:02 kb EC:04 Rate is 97 beats/min. Rhythm is regular. QRS [place] is Normal. MT interval is normal at kb 138 msec. QRS interval is normal at 76 msec. QT interval is normal at 492 msec. Administered Medications: 16:02 Drug: Ativan IVP 2 mg IVP once Route: IVP; Site: left antecubital; me1 16:56 Follow up: Response: No adverse reaction; Anxiety decreased me1 16:02 Drug: NS 0.9% IV 1000 ml IV at 1000 ml once; to be given as a bolus over 60 minutes me1 Route: IV; Rate: 1000 ml; Site: left antecubital; 17:31 Follow up: Response: No adverse reaction; IV Status: Completed infusion; IV Intake: me1 1000ml 17:01 Drug: Magnesium Sulfate IVPB 1 grams IVPB once over 1 hrs Route: IVPB; Infused Over: 1 me1 hrs; Site: left antecubital; 17:31 Follow up: Response: No adverse reaction; IV Status: Completed infusion me1 17:32 Not Given (not availablee): calcium [id number] mg PO once; administer after food or a me1 meal Disposition Summary: 10/25/24 16:54 Transfer Ordered Notes: Transfer Location: Psych Facility kb Reason: Higher level of care kb Condition: Stable kb Problem: new kb Symptoms: are unchanged kb Accepting Physician: Dr Palacios(10/25/24 17:37) aa5 Diagnosis - Suicidal ideations kb Forms: - Medication Reconciliation Form kb - SBAR form kb Addendum: 10/27/2024 09:03 Co-signature as Attending Physician, Sanjeev Cummings MD I reviewed the patient's care r n provided by the Advanced Practice Provider and agree with the diagnosis and treatment plan. Signatures: Dispatcher [employer] EDMS Rika Hinds, PIN PUSHER-C PIN PUSHER-Ckb Sanjeev Cummings MD MD rn Calderon, Audri, RN RN aa5 Rachell Mcclelland RN RN me1 Corrections: (The following items were deleted from the chart) 10/25 15:20 15:20 ACETAMINOPHEN+C.LAB.BRZ ordered. EDMS EDMS 15:20 15:20 BASIC METABOLIC PANEL+C.LAB.BRZ ordered. EDMS EDMS 15:20 15:20 CBC+H.LAB.BRZ ordered. EDMS EDMS 15:20 15:20 ETHANOL+C.LAB.BRZ ordered. EDMS EDMS 15:20 15:20 HEPATIC FUNCTION+C.LAB.BRZ ordered. EDMS EDMS 15:20 15:20 PROTIME (+INR)+COAG.LAB.BRZ ordered. EDMS EDMS 15:20 15:20 Test, Urine+UC.LAB.BRZ ordered. EDMS EDMS 15:20 15:20 PTT, ACTIVATED+COAG.LAB.BRZ ordered. EDMS EDMS 15:20 15:20 SALICYLATE+C.LAB.BRZ ordered. EDMS EDMS 15:20 15:20 Urinalysis+U.LAB.BRZ ordered. EDMS EDMS 15:20 15:20 URINE DRUG SCREEN+UC.LAB.BRZ ordered. EDMS EDMS 17:37 16:54 Dr Philip diop aa5
--- NOTE | 2024-10-25 16:55 | ER ---
Nurse's Notes [facility] Name: Sylvia Cruz Age: 39 yrs Sex: Female : 1985 Arrival Date: 10/25/2024 Time: 15:14 Bed 18 Private MD: Diagnosis: Suicidal ideations Presentation: 10/25 15:18 Chief complaint: brought in by [facility] Officer Robin with an TOMAS as patient had called me1 the suicide hotline and said she had knives with her and was going to cut her wrists. Coronavirus screen: At this time, the client does not indicate any symptoms associated with coronavirus-19. Ebola Screen: No symptoms or risks identified at this time. Risk Assessment: Do you want to hurt yourself or someone else? Patient reports no desire to harm self or others. Onset of symptoms is unknown. 15:18 Method Of Arrival: Law Enforcement: Sabino Hinds [facility] 15:18 Acuity: BONITA 2 me1 15:18 Initial Sepsis Screen: Does the patient meet any 2 criteria? No. Patient's initial id1 sepsis screen is negative. Does the patient have a suspected source of infection? No. Patient's initial sepsis screen is negative. Triage Assessment: 15:19 General: Appears distressed, well groomed, well developed, well nourished, Behavior is me1 cooperative, appropriate for age, agitated, anxious, Reports called suicide hotline and reported that she has knives in her possession and wanted to cut her wrists. Brought in by [facility] with an TOMAS. Pain: Denies pain. EENT: No signs and/or symptoms were reported regarding the EENT system. Neuro: Level of Consciousness is awake, alert, obeys commands, Oriented to person, place, time, situation, Appropriate for age. Cardiovascular: Patient's skin is warm and dry. Respiratory: Airway is patent Respiratory effort is even, unlabored, Respiratory pattern is regular, symmetrical. GI: No signs and/or symptoms were reported involving the gastrointestinal system. : No signs and/or symptoms were reported regarding the genitourinary system. Derm: Skin is intact, is healthy with good turgor, Skin is pink, warm \\T\\ dry. Musculoskeletal: No signs and/or symptoms reported regarding the musculoskeletal system. 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 LMP N/A - Depo-provera, Not me1 Historical: - Allergies: 15:19 No Known Allergies; me1 - Home Meds: 15:37 Depo-Provera IM [Active]; hydroxyzine HCl 50 mg oral tablet 1 tab 4 times per day for me1 anxiety [Active]; duloxetine 30 mg oral Capsule, Delayed Release Sprinkle 1 cap daily [Active]; clonidine HCl 0.1 mg oral tablet 1 tab every day at bedtime [Active]; Abilify 2 mg oral tablet 1 tab daily [Active]; Seroquel 100 mg Oral tablet 1 tab nightly [Active]; naltrexone 50 mg oral tablet 2 tabs daily [Active]; - PMHx: 15:19 Alcoholism; Bipolar disorder; cirrhosis of liver; Depression; Hypertension; me1 - PSHx: 15:37 Cholecystectomy; Sternum Reconstruction; me1 - Immunization history:: Adult Immunizations unknown. - Infectious Disease History:: Denies. - Social history:: Patient uses alcohol, on a daily basis. Smoking status: Patient reports the use of cigarette tobacco products, smokes one pack cigarettes per day. Screenin:22 [facility] ED Fall Risk Assessment (Adult) History of falling in the last 3 months, id1 including since admission No falls in past 3 months (0 pts) Confusion or Disorientation No (0 pts) Intoxicated or Sedated Yes (3 pts) Impaired Gait No (0 pts) Mobility Assist Device Used No (0 pt) Altered Elimination No (0 pt) Score/Fall Risk Level 0 - 2 = Low Risk Maintained a safe environment, Provided non-skid footwear, Hourly rounding (assess needs \\T\\ fall precautionary measures) done. Abuse screen: Denies threats or abuse. Nutritional screening: No deficits noted. Tuberculosis screening: No symptoms or risk factors identified. Assessment: 15:22 General: See triage assessment. id1 16:47 Reassessment: Gave nurse to nurse to Rosemary Carrillo, transferred call back me1 to community health advocate for acceptance information. Psych: 15:42 [place] Suicide Severity Screening: In the past month, have you wished you were me1 or wished you could go to sleep and not wake up? Patient responds "yes." Based off the client's responses additional C-SSRS screening is required. "In the past month, have you actually had any thoughts of killing yourself?" Patient responds "yes." Based off the client's response additional [place] suicide severity screening questions to be further documented on paper forms. "In your lifetime, have you ever done anything, started to do anything, or prepared to do anything to end your life?" Patient responds "yes." Patient reports suicidal intent occurred greater than 3 months prior. patient reports cutting her wrists 4 months ago. Subjective: Patient's mood is sad, hopeless, Delusions are denied, Hallucinations are denied Having thoughts of homicide. Denies HI. Objective: Patient is cooperative, Speech is normal, Affect is flat. Interventions: Removed personal items and placed in bag. Patient placed in hospital gown. Searched person for dangerous items. Urine collected and sent for urine drug test. Belonging list filled out. Safety Checks: Personal items have been removed. Door is open. No visitors are present at this time. Patient uses a pint of tequila and 2 bottles of wine a day. Commitment: Patient will be an involuntary commitment. Commitment papers completed. TOMAS from [facility] on chart. Vital Signs: 15:18 BP 137 / 93; Pulse 110; Resp 17; Temp 98.1; Pulse Ox 97% ; Weight 54.43 kg; Height 5 me1 ft. 2 in. ; Pain 0/10; 17:32 BP 128 / 79; Pulse 113; Resp 14; Temp 98.1; Pulse Ox 100% ; me1 15:18 Body Mass Index 21.95 (54.43 kg, 157.48 cm) me1 15:18 Pain Scale: [facility] ED Course: 15:16 Patient arrived in ED. me1 15:18 Rachell Mcclelland, SARAHI is Primary Nurse. me1 15:18 Rika Hinds FNP-C is PHCP. kb 15:19 Sanjeev Cummings MD is Attending Physician. kb 15:19 Triage completed. me1 15:19 Arm band placed on Patient placed in an exam room. me1 15:22 Patient has correct armband on for positive identification. Bed in low position. Call [facility] light in reach. Side rails up X 1. Provided Education on: POC. Verbalized understanding.. 15:22 No provider procedures requiring assistance completed. me1 16:03 Acetaminophen Sent. me1 16:03 Basic Metabolic Panel Sent. me1 16:03 CBC with Diff Sent. me1 16:03 ETOH Level Sent. me1 16:03 Hepatic Function Sent. me1 16:03 PT-INR Sent. me1 16:03 Ptt, Activated Sent. me1 16:03 Salicylate Sent. me1 16:35 faxed patient clinical information to the following facilities in attempt to find placement/ [facility]. 16:37 Acetaminophen Sent. cc6 16:37 Basic Metabolic Panel Sent. cc6 16:37 ETOH Level Sent. cc6 16:37 Hepatic Function Sent. cc6 16:37 PT-INR Sent. cc6 16:37 Test, Urine Sent. cc6 16:37 Ptt, Activated Sent. cc6 16:37 Salicylate Sent. cc6 16:37 Urinalysis w/ reflexes Sent. cc6 16:37 Urine Drug Screen Sent. cc6 16:37 Initial lab(s) drawn, by id, sent to lab. Inserted saline lock: 20 gauge in left cc6 antecubital area, using aseptic technique. Blood collected. Flushed with 10 mL NS. 16:44 connected Rosemary Armendariz from [facility] with Rachell Armendariz for nurse to nurse. 16:48 administrative approval given by Rosemary KIDD Rn/ patient has been accepted to [facility]/ Dr. Toby Palacios has accepted the patient in transfer without conference with Rika Lai. 17:33 IV discontinued, intact, bleeding controlled, No redness/swelling at site. Pressure me1 dressing applied. Administered Medications: 16:02 Drug: Ativan IVP 2 mg IVP once Route: IVP; Site: left antecubital; me1 16:56 Follow up: Response: No adverse reaction; Anxiety decreased me1 16:02 Drug: NS 0.9% IV 1000 ml IV at 1000 ml once; to be given as a bolus over 60 minutes me1 Route: IV; Rate: 1000 ml; Site: left antecubital; 17:31 Follow up: Response: No adverse reaction; IV Status: Completed infusion; IV Intake: me1 1000ml 17:01 Drug: Magnesium Sulfate IVPB 1 grams IVPB once over 1 hrs Route: IVPB; Infused Over: 1 me1 hrs; Site: left antecubital; 17:31 Follow up: Response: No adverse reaction; IV Status: Completed infusion me1 17:32 Not Given (not availablee): calcium [id number] mg PO once; administer after food or a me1 meal Medication: 15:22 VIS not applicable for this client. me1 Intake: 17:31 IV: 1000ml; Total: 1000ml. me1 Outcome: 16:54 ER care complete, transfer ordered by MD. diop 17:38 Transferred by ground EMS Note: [facility] me1 17:38 Condition: stable 17:38 Instructed on the need for transfer, 17:38 Patient left the ED. aa5 Signatures: Rika Hinds, MIGUEL-Andrea RIVERA-Sravani Rowley, RN RN aa5 Oxana Morataya Michelle, RN RN me1 Tami Lopez cc6 Corrections: (The following items were deleted from the chart) 18:30 17:37 Patient left the ED. aa5 aa5
[2024-10-25] MEDS ORDERED: MAGNESIUM SULFATE 1 gm IVPB 1 GM/100 ML BAG IV ONE (16:57)
--- NOTE | 2024-10-27 12:12 | EKG ---
Test Date: 2024-10-25 Test Time: 16:31:56 Cancer Researcher: AM MEASUREMENT RESULTS: Intervals: Rate: 97 IA: 138 QRSD: 76 QT: 388 QTc: 492 [place]: P: 65 IA: 138 QRS: 40 T: 47 INTERPRETIVE STATEMENTS: Normal sinus rhythm Prolonged QT Abnormal ECG Compared to ECG 08/12/2024 21:54:31 No significant changes Electronically Signed On 10-27-24 12:08:30 CDT by Benny Zambrano
[2024-10-27 20:57] VITALS: TEMP 98.1
[2024-10-27 20:58] VITALS: BP 128/79; O2SAT 100
== END 2024-10-25 17:37 ==
LOC: ER 15:14
DX: R45.851 Suicidal ideations (principal); F10.20 Alcohol dependence, uncomplicated; F31.9 Bipolar disorder, unspecified; F17.210 Nicotine dependence, cigarettes, uncomplicated
CPT/HCPCS: 36415; 80048; 80076; 80143; 80179; 80307; 81001; 81025; 82077; 85025; 85610; 85730; 93005; 96361; 96365; 96375; 99285; J3475; J7030

== ENCOUNTER 2025-03-30 11:05 | Emergency (ER) | payer MEDICARE, SELFPAY ==
[2025-03-30] MEDS ORDERED: ONDANSETRON 4 MG/2 ML VIAL ONE (12:13)
[2025-03-30 12:15] LABS: Absolute Lymphocytes (CBC) 2.1 K/uL (0.7-4.9); Hematocrit 37.6 % (36.0-45.0); Hemoglobin 13.0 g/dL (12.0-15.0); MCH 35.7 pg (27.0-35.0); MCHC 34.7 g/dL (32.0-36.0); MCV 102.9 fL (80-100); MPV 6.9 fL (7.6-11.3); Nucleated RBC Absolute Count 0.0 (0-0); Nucleated Red Blood Cells % 0.0 % (0-0); RBC Red Blood Cell Count 3.65 M/uL (3.86-4.86); White Blood Count 7.60 thou/uL (4.3-10.9)
[2025-03-30 12:24] LABS: PT Prothrombin Time 14.8 SECONDS (10-13.0); PTT, Activated Partial Thromb 46.7 SECONDS (27.2-37.4); Protime INR 1.32
[2025-03-30 12:38] LABS: ALT/SGPT 100 U/L (13-56); AST/SGOT 226 U/L (15-37); Albumin 3.2 g/dL (3.4-5.0); Albumin/Globulin Ratio 0.7 (1.1-1.8); Alkaline Phosphatase 113 U/L (45-117); Anion Gap 12.8 mEq/L (5.0-15.0); BUN Blood Urea Nitrogen 4 mg/dL (7-18); Bilirubin Indirect, Calculated 1.0 mg/dL (0.2-0.8); Globulin 4.9 g/dL (2.3-3.5); Glucose Level 110 mg/dL (74-106); Potassium 3.8 mEq/L (3.5-5.1)
[2025-03-30] MEDS ORDERED: LORazepam 2 MG/ML VIAL ONE (12:52)
[2025-03-30] MEDS ORDERED: FOLIC ACID 1 MG, THIAMINE HCL 100 MG, MULTIVITAMINS INJ 10 ML in NA CHLORIDE 0.9% 1,000 ML IV ONE (13:00)
[2025-03-30 13:42] LABS: White Blood Cell Scan OK (OK)
[2025-03-30 13:43] LABS: Blood Morphology Comment NOT SEEN (NOT SEEN)
--- NOTE | 2025-03-30 14:06 | EDPHYS ---
Physician Documentation [facility] Name: Sylvia Cruz Age: 40 yrs Sex: Female : 1985 Arrival Date: 03/30/2025 Time: 11:05 Bed 16 Private MD: ED Physician Akbar Crawford HPI: 03/30 11:40 This 40 yrs old Female presents to ER via Ambulatory with complaints of Alcohol sb4 Withdrawal. 12:18 Patient reports a longstanding history of alcoholism. States that she went to a sb4 treatment center this morning, but did not qualify for the program because she scored too highly and was at a major risk for seizures secondary to alcohol withdrawal. They told her she needed to go to the ED for further management. She states that on her way from there to here, she took 2 shots of tequila. She is here because she wants to get help. She states that she feels poorly, feels like her liver and her kidneys are failing. States that she has a bruise on her left lower back that she does not know the origination because she did not injure herself. Historical: - Allergies: 11:37 No Known Allergies; dd2 - PMHx: 11:37 Alcoholism; Bipolar disorder; cirrhosis of liver; Depression; Hypertension; ETOH dd2 (Hypertension); Seizure; - PSHx: 11:37 Cholecystectomy; Sternum Reconstruction; dd2 - Immunization history:: Adult Immunizations unknown. - Infectious Disease History:: Denies. - Social history:: Smoking status: Reported history of juuling and/or vaping. ROS: 12:18 Constitutional: Negative for fever, chills, and weight loss, sb4 12:18 All other systems are negative, Exam: 12:20 Head/Face: Normocephalic, atraumatic. Eyes: Extra-ocular motions intact. Periorbital sb4 areas with no swelling, redness, or edema. ENT: Mucous membranes moist. Cardiovascular: Regular rate and rhythm with a normal S1 and S2. Respiratory: No increased work of breathing, no retractions or nasal flaring. Abdomen/GI: Soft, non-tender, no distension. 12:20 Constitutional: The patient appears alert, awake, anxious, 12:20 Skin: injury, contusion(s), that are superficial, of the left low back, Vital Signs: 11:30 BP 140 / 92; Pulse 100; Resp 17; Temp 98.2; Pulse Ox 99% on R/A; dd2 12:15 BP 123 / 93; Pulse 83; Resp 22; Pulse Ox 99% on R/A; ar8 13:15 BP 116 / 80; Pulse 79; Resp 15; Pulse Ox 100% on R/A; ar8 14:00 BP 102 / 68; Pulse 84; Resp 16; Pulse Ox 96% on R/A; Pain 0/10; ar8 14:30 BP 113 / 74; Pulse 94; Resp 20; Pulse Ox 100% on R/A; ar8 14:00 Pain Scale: Adult ar8 MDM: 11:19 Medical Screening Exam initiated sb4 14:05 Data reviewed: vital signs, nurses notes, lab test result(s), I have discussed the sb4 patient's presentation/case with the attending Emergency Department Physician; and as a result, I will discharge patient. Care significantly affected by the following Social Determinants of Health: Misuse of alcohol and/or drugs. Counseling: I had a detailed discussion with the patient and/or guardian regarding the historical points, exam findings, and any diagnostic results supporting the discharge/admit diagnosis, lab results, the need for outpatient follow up, for definitive care, to return to the emergency department if symptoms worsen or persist or if there are any questions or concerns that arise at home. 03/30 11:40 Order name: Acetaminophen; Complete Time: 12:43 [facility] 03/30 11:40 Order name: Basic Metabolic Panel; Complete Time: 12:43 [facility] 03/30 11:40 Order name: CBC with Diff; Complete Time: 13:45 03/30 11:40 Order name: ETOH Level; Complete Time: 12:56 03/30 11:40 Order name: Hepatic Function; Complete Time: 12:43 [facility] 03/30 11:40 Order name: PT-INR; Complete Time: 12:25 [facility] 03/30 11:40 Order name: Test, Urine; Complete Time: 12:20 03/30 11:40 Order name: Ptt, Activated; Complete Time: 12:25 [facility] 03/30 11:40 Order name: Salicylate; Complete Time: 12:43 [facility] 03/30 11:40 Order name: Urine Drug Screen; Complete Time: 14:17 [facility] 03/30 12:19 Order name: CBC Smear Scan; Complete Time: 13:45 EDMS 03/30 11:40 Order name: IV Saline Lock; Complete Time: 12:07 sb4 03/30 11:40 Order name: Labs collected and sent; Complete Time: 12:07 sb4 Administered Medications: 12:22 Drug: Ondansetron IVP 4 mg IVP once; over 2 minutes Route: IVP; Site: left antecubital; ar8 13:01 Follow up: Response: No adverse reaction; Nausea is decreased ar8 12:54 Drug: Ativan IVP 1 mg IVP once Route: IVP; Site: left antecubital; ar8 13:39 Follow up: Response: No adverse reaction; Marked relief of symptoms; Anxiety decreased ar8 12:57 Drug: Banana Bag - (Multivitamin IV 1 amp, NS 0.9% IV 1000 ml, Thiamine IV 100 mg, ar8 foLIC Acid IVPB 1 mg) IV at calculated rate once Route: IV; Rate: calculated rate; Site: left antecubital; 14:57 Follow up: Response: No adverse reaction; IV Status: Completed infusion; IV Intake: ar8 1000ml Disposition Summary: 03/30/25 14:06 Discharge Ordered Notes: Location: Home sb4 Problem: an ongoing problem sb4 Symptoms: have improved sb4 Condition: Stable sb4 Diagnosis - Alcohol abuse with intoxication sb4 Followup: sb4 - With: Emergency Department - When: As needed - Reason: Trouble breathing, Worsening of condition Discharge Instructions: - Discharge Summary Sheet sb4 - Alcohol Use Disorder sb4 Forms: - Patient Portal Instructions sb4 - Leadership Thank You Letter sb4 Prescriptions: - chlordiazepoxide HCl 25 mg Oral capsule - take 2 capsule ORAL route 3 times per day PRN withdrawal symptoms; 20 capsule; sb4 Refills: 0, Product Selection Permitted Signatures: Dispatcher [employer] Stephie White PA-C PA-C sb4 KEN HOLLIDAY RN RN dd2 Hernán Thompson RN RN ar8 Corrections: (The following items were deleted from the chart) 11:40 11:40 ACETAMINOPHEN+C.LAB.BRZ ordered. EDMS EDMS 11:40 11:40 BASIC METABOLIC PANEL+C.LAB.BRZ ordered. EDMS EDMS 11:40 11:40 CBC+H.LAB.BRZ ordered. EDMS EDMS 11:40 11:40 ETHANOL+C.LAB.BRZ ordered. EDMS EDMS 11:40 11:40 HEPATIC FUNCTION+C.LAB.BRZ ordered. EDMS EDMS 11:40 11:40 PROTIME (+INR)+COAG.LAB.BRZ ordered. EDMS EDMS 11:40 11:40 Test, Urine+UC.LAB.BRZ ordered. EDMS EDMS 11:40 11:40 PTT, ACTIVATED+COAG.LAB.BRZ ordered. EDMS EDMS 11:40 11:40 SALICYLATE+C.LAB.BRZ ordered. EDMS EDMS 11:40 11:40 URINE DRUG SCREEN+UC.LAB.BRZ ordered. EDMS EDMS 12:20 12:18 Patient reports a longstanding history of alcoholism. States that she went to a sb4 treatment center this morning, but did not qualify for the program because she scored too highly and was at a major risk for seizures secondary to alcohol withdrawal. They told her she needed to go to the ED for further management. She states that on her way from there to here, she took 2 shots of tequila. She is here because she wants to get help. [facility]
--- NOTE | 2025-03-30 14:06 | ER ---
Nurse's Notes [facility] Name: Sylvia Cruz Age: 40 yrs Sex: Female : 1985 Arrival Date: 03/30/2025 Time: 11:05 Bed 16 Private MD: Diagnosis: Alcohol abuse with intoxication Presentation: 03/30 11:30 Chief complaint: Patient states: SHE WENT TO THE CLINIC FOR ALCOHOL DETOX PLACEMENT AND dd2 WAS TOLD OUTPATIENT IS NOT THE PLACE FOR HER THAT SHE NEEDS TO COME TO THE ER FOR TREATMENT. PT REPORTS TAKING 2 ALCOHOL SHOTS DISTRICT TRAFFIC CHIEF AND 2 BOTTLES OF WINE YESTERDAY. PT REPORTS HAVING ALCOHOL SEIZURES 3 WEEKS AGO. Coronavirus screen: At this time, the client does not indicate any symptoms associated with coronavirus-19. Ebola Screen: No symptoms or risks identified at this time. Initial Sepsis Screen: Does the patient meet any 2 criteria? No. Patient's initial sepsis screen is negative. Does the patient have a suspected source of infection? No. Patient's initial sepsis screen is negative. Risk Assessment: Do you want to hurt yourself or someone else? Patient reports no desire to harm self or others. Onset of symptoms was March 30, 2025. 11:30 Method Of Arrival: Ambulatory dd2 11:30 Acuity: BONITA 3 dd2 Triage Assessment: 11:37 General: Appears uncomfortable, Behavior is cooperative, appropriate for age, crying, dd2 Reports ETOH DISTRICT TRAFFIC CHIEF. Pain: Complains of pain in left low back and left upper quadrant. Historical: - Allergies: 11:37 No Known Allergies; dd2 - PMHx: 11:37 Alcoholism; Bipolar disorder; cirrhosis of liver; Depression; Hypertension; ETOH dd2 (Hypertension); Seizure; - PSHx: 11:37 Cholecystectomy; Sternum Reconstruction; dd2 - Immunization history:: Adult Immunizations unknown. - Infectious Disease History:: Denies. - Social history:: Smoking status: Reported history of juuling and/or vaping. Screenin:55 [facility] ED Fall Risk Assessment (Adult) History of falling in the last 3 months, ar8 including since admission No falls in past 3 months (0 pts) Confusion or Disorientation No (0 pts) Intoxicated or Sedated No (0 pts) Impaired Gait No (0 pts) Mobility Assist Device Used No (0 pt) Altered Elimination No (0 pt) Score/Fall Risk Level 0 - 2 = Low Risk Oriented to surroundings, Maintained a safe environment. Abuse screen: Denies threats or abuse. Nutritional screening: No deficits noted. Tuberculosis screening: No symptoms or risk factors identified. 12:27 Clinical [place] Withdrawal Assessment for Alcohol, revised (CIWA-Ar): ar8 Nausea/Vomitin - Constant nausea, frequent dry heaves and vomiting. Headache: 0 - Not present Paroxysmal Sweats: 1 - Barely perceptible sweating, palms moist Anxiety: 7 - Acute panic state, consistent with severe delirium or acute schizophrenia Agitation: 4 - Moderately fidgety and restless Tremor: 1 - Not visible, but can be felt at fingertips Auditory Disturbances: 0 - Not present Visual Disturbances: 3 - Moderate photosensitivity Tactile Disturbances: 1 - Very mild paresthesias Orientation and Clouding of Sensorium: 0 - Oriented and can do serial additions Total Score: > 20: Severe Withdrawal. Assessment: 11:55 General: Appears uncomfortable, Behavior is cooperative, agitated, anxious, Reports ar8 feeling ill for Patient states she is withdrawing from alcohol. States she last had 2 shots of tequila 1 hour ago. Neuro: Level of Consciousness is awake, alert, obeys commands, Oriented to person, place, time, situation, Internal Controls Analyst are equal bilaterally Moves all extremities. Full function Gait is steady, Speech is normal, Facial symmetry appears normal. Cardiovascular: Patient's skin is warm and dry. Respiratory: Airway is patent Respiratory effort is even, unlabored, Respiratory pattern is regular, agonal. GI: Abdomen is flat, Reports nausea. : No signs and/or symptoms were reported regarding the genitourinary system. EENT: No signs and/or symptoms were reported regarding the EENT system. Derm: No signs and/or symptoms reported regarding the dermatologic system. Musculoskeletal: No signs and/or symptoms reported regarding the musculoskeletal system. 13:37 Reassessment: Patient is resting quietly, VSS.. General: Appears in no apparent ar8 distress. Behavior is quiet. 14:48 Reassessment: Pending DC, patient is awaiting her ride. ar8 Vital Signs: 11:30 BP 140 / 92; Pulse 100; Resp 17; Temp 98.2; Pulse Ox 99% on R/A; dd2 12:15 BP 123 / 93; Pulse 83; Resp 22; Pulse Ox 99% on R/A; ar8 13:15 BP 116 / 80; Pulse 79; Resp 15; Pulse Ox 100% on R/A; ar8 14:00 BP 102 / 68; Pulse 84; Resp 16; Pulse Ox 96% on R/A; Pain 0/10; ar8 14:30 BP 113 / 74; Pulse 94; Resp 20; Pulse Ox 100% on R/A; ar8 14:00 Pain Scale: Adult ar8 ED Course: 11:16 Patient arrived in ED. cj3 11:19 Stephie Huffman PA-C is PHCP. sb4 11:19 Akbar Crawford MD is Attending Physician. sb4 11:37 Triage completed. dd2 11:37 Arm band placed on right wrist. dd2 11:49 Hernán Thompson, SARAHI is Primary Nurse. ar8 11:55 Bed in low position. Call light in reach. Side rails up X2. Provided Education on: plan ar8 of care, diagnostics and estimated wait time. Client placed on continuous cardiac and pulse oximetry monitoring. NIBP monitoring applied. 12:02 No provider procedures requiring assistance completed. Inserted saline lock: 22 gauge ar8 in left antecubital area, using aseptic technique. Blood collected. Flushed with 10 mL NS. 12:02 Urine collected: clean catch specimen, donald colored. ar8 12:07 Acetaminophen Sent. ar8 12:07 Basic Metabolic Panel Sent. ar8 12:07 CBC with Diff Sent. ar8 12:07 ETOH Level Sent. ar8 12:07 Hepatic Function Sent. ar8 12:07 PT-INR Sent. ar8 12:07 Test, Urine Sent. ar8 12:07 Ptt, Activated Sent. ar8 12:07 Salicylate Sent. ar8 12:07 Urine Drug Screen Sent. ar8 15:00 IV discontinued, intact, bleeding controlled, No redness/swelling at site. Pressure ar8 dressing applied. Administered Medications: 12:22 Drug: Ondansetron IVP 4 mg IVP once; over 2 minutes Route: IVP; Site: left antecubital; ar8 13:01 Follow up: Response: No adverse reaction; Nausea is decreased ar8 12:54 Drug: Ativan IVP 1 mg IVP once Route: IVP; Site: left antecubital; ar8 13:39 Follow up: Response: No adverse reaction; Marked relief of symptoms; Anxiety decreased ar8 12:57 Drug: Banana Bag - (Multivitamin IV 1 amp, NS 0.9% IV 1000 ml, Thiamine IV 100 mg, ar8 foLIC Acid IVPB 1 mg) IV at calculated rate once Route: IV; Rate: calculated rate; Site: left antecubital; 14:57 Follow up: Response: No adverse reaction; IV Status: Completed infusion; IV Intake: ar8 1000ml Medication: 11:55 VIS not applicable for this client. ar8 Intake: 14:57 IV: 1000ml; Total: 1000ml. ar8 Outcome: 14:06 Discharge ordered by . sirael 15:05 Discharged to home ambulatory, ar8 15:05 Condition: stable 15:05 Discharge instructions given to patient, Instructed on discharge instructions, follow up and referral plans. medication usage, Demonstrated understanding of instructions, follow-up care, medications, Prescriptions given X 1, 15:07 Patient left the ED. ar8 Signatures: Stephie Huffman PA-C PA-C sb4 KEN HOLLIDAY RN RN dd2 Diamond Vann cj3 Hernán Thompson RN RN ar8
[2025-03-30 14:16] LABS: METHAMPHETAM NEGATIVE (NEGATIVE); THC Cannibis NEGATIVE (NEGATIVE)
[2025-03-30 15:40] VITALS: TEMP 98.2
[2025-03-30 15:45] VITALS: BP 113/74; O2SAT 100
== END 2025-03-30 15:07 | disposition home or self-care (01) ==
LOC: ER 11:05
DX: F10.229 Alcohol dependence with intoxication, unspecified (principal)
CPT/HCPCS: 36415; 80048; 80076; 80143; 80179; 80307; 81025; 82077; 85025; 85610; 85730; 96365; 96366; 96375; 99284; J2405; J3411; J7030

== ENCOUNTER 2025-04-22 19:15 | Emergency (ER) | payer SELFPAY ==
[2025-04-22] MEDS ORDERED: NA CHLORIDE 0.9% 1,000 ML ONE (19:45)
[2025-04-22] MEDS ORDERED: ACETAMINOPHEN 500 MG TAB ONE (19:45)
[2025-04-22 19:50] LABS: Absolute Lymphocytes (CBC) 3.6 K/uL (0.7-4.9); Hematocrit 36.5 % (36.0-45.0); Hemoglobin 12.6 g/dL (12.0-15.0); MCH 35.6 pg (27.0-35.0); MCHC 34.6 g/dL (32.0-36.0); MCV 102.9 fL (80-100); MPV 6.0 fL (7.6-11.3); Nucleated RBC Absolute Count 0.0 (0-0); Nucleated Red Blood Cells % 0.1 % (0-0); RBC Red Blood Cell Count 3.55 M/uL (3.86-4.86); White Blood Count 6.90 thou/uL (4.3-10.9)
[2025-04-22 20:02] LABS: PT Prothrombin Time 13.9 SECONDS (10-13.0); PTT, Activated Partial Thromb 44.0 SECONDS (27.2-37.4); Protime INR 1.24
[2025-04-22 20:15] LABS: ALT/SGPT 63 U/L (13-56); AST/SGOT 98 U/L (15-37); Albumin 3.2 g/dL (3.4-5.0); Albumin/Globulin Ratio 0.7 (1.1-1.8); Alkaline Phosphatase 93 U/L (45-117); Anion Gap 9.6 mEq/L (5.0-15.0); BUN Blood Urea Nitrogen 12 mg/dL (7-18); Bilirubin Indirect, Calculated 0.6 mg/dL (0.2-0.8); Globulin 4.6 g/dL (2.3-3.5); Glucose Level 110 mg/dL (74-106); Potassium 3.6 mEq/L (3.5-5.1)
--- NOTE | 2025-04-22 20:48 | RAD REPORT ---
EXAMINATION: XR RIGHT KNEE CLINICAL INDICATION: Female, 40 years old. PAIN TECHNIQUE: Multiple views of the right knee were obtained. COMPARISON: No prior exam. FINDINGS: No fracture or dislocation seen.
--- NOTE | 2025-04-22 20:48 | RAD REPORT ---
EXAMINATION: XR RIGHT HIP CLINICAL INDICATION: . PAIN RIGHT TECHNIQUE: Multiple views of the right hip were obtained. COMPARISON: No prior exam. FINDINGS: Mild degenerative changes right hip. No fracture, dislocation or AVN pattern observed.
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
--- NOTE | 2025-04-22 21:04 | RAD REPORT ---
EXAM: CT CHEST, ABDOMEN AND PELVIS WITH CONTRAST CLINICAL INDICATION: Seizure TECHNIQUE: CT chest, abdomen and pelvis was performed, following the administration of contrast, as p er department protocol. Axial, sagittal and coronal reconstructions were obtained. One or more of the following dose reduction techniques were used: Automated exposure control, adjustment of the mA a nd/or kV according to patient size, and/or iterative reconstruction. Unless otherwise specified, incidental findings do not require dedicated imaging follow-up. COMPARISON: No prior exam. FINDINGS: LUNGS: No evidence of airspace or interstitial process. No nodules. PLEURA: No pleural effusion. No pneumothorax. MEDIASTINUM AND LYMPH NODES: No mediastinal mass or fluid collection. Normal size mediastinal, hilar, and axillary lymph nodes. OSSEOUS STRUCTURES AND CHEST WALL: Intact. LIVER: Diffuse fatty liver is seen with nodular liver contour likely cirrhosis. Several very small lo w density lesions are present. Cholecystectomy clips. PANCREAS: No mass, ductal dilation, or pee-pancreatic fluid. SPLEEN: Normal size. No focal lesion. ADRENALS: Normal; no mass. KIDNEYS: Normal size and contour. No hydronephrosis. URINARY BLADDER: Normal contour. GASTROINTESTINAL TRACT: No bowel obstruction, free air, significant free fluid or abscess. Small fa t-containing ventral hernia supraumbilical location. Moderate stool throughout the colon. APPENDIX: Normal appendix. LYMPH NODES: No lymphadenopathy. MUSCULOSKELETAL: No acute or suspicious osseous abnormality. IMPRESSION: No acute abnormalities seen in the chest, abdomen or pelvis. Mild liver cirrhosis is seen with several vague low-density lesions. Follow-up nonemergent MRI liver protocol would be recommended for more detailed assessment. Small fat-containing ventral hernia supraumbilical location.
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
[2025-04-22 21:25] LABS: METHAMPHETAM NEGATIVE (NEGATIVE); THC Cannibis NEGATIVE (NEGATIVE)
[2025-04-22] MEDS ORDERED: HYDROCODONE/APAP 5/325 MG TAB ONE (21:45)
[2025-04-23 00:45] VITALS: TEMP 98.2
[2025-04-23 00:48] VITALS: BP 128/87; O2SAT 98
== END 2025-04-22 21:48 | disposition home or self-care (01) ==
LOC: ER 19:15
DX: S09.90XA Unspecified injury of head, initial encounter (principal); S39.93XA Unspecified injury of pelvis, initial encounter; S89.91XA Unspecified injury of right lower leg, initial encounter; Y90.8 Blood alcohol level of 240 mg/100 ml or more; F10.129 Alcohol abuse with intoxication, unspecified; E86.0 Dehydration; R51.9 Headache, unspecified; K70.30 Alcoholic cirrhosis of liver without ascites; I10 Essential (primary) hypertension; F32.A Depression, unspecified; Y04.2XXA Assault by strike against or bumped into by another person, initial encounter; Y93.9 Activity, unspecified; Y92.9 Unspecified place or not applicable
CPT/HCPCS: 36415; 70450; 71260; 72125; 74177; 80048; 80076; 80143; 80179; 80307; 81025; 82077; 84703; 85025; 85610; 85730; 93005; 96360; 96361; 99284; J7030; Q9967